=== PATIENT | male | born 1955 | race Caucasian/White ===

== ENCOUNTER 2019-05-21 14:28 | Emergency (ER) | payer MEDICARE, OTHER, SELFPAY ==
[2019-05-21 14:29] VITALS: BP 149/86; PULSE 75; RESP 16; TEMP 36.7; O2SAT 98; BMI 23.3
--- NOTE | 2019-05-21 16:34 | EKG12_ITS ---
Test Reason : NEURO Blood Pressure : / mmHG Vent. Rate : 059 BPM Atrial Rate : 059 BPM P-R Int : 152 ms QRS Dur : 098 ms QT Int : 438 ms P-R-T Axes : 040 -17 032 degrees QTc Int : 433 ms Sinus bradycardia Otherwise normal ECG Confirmed by ZAHRA CASAS ([id number]), primer expeditor and drier DIANA DOVER ([id number]) on 05/22/2019 2:30:51 PM Referred By: MARIANELA Confirmed By:ZAHRA CASAS
--- NOTE | 2019-05-21 16:34 | CT_ITS ---
STUDY: CT BRAIN WITHOUT CONTRAST REASON FOR EXAM: Male, 63 years old. Right facial droop, visual disturbance in right eye RADIATION DOSAGE (If Supplied By Facility): CTDIvol = ( 60.81 ) mGy, DLP = ( 1044.28 ) mGycm TECHNIQUE: Transaxial CT imaging of the brain was performed without administration of intravenous contrast material. Individualized dose optimization techniques were used for this CT. COMPARISON: October 16, 2016 FINDINGS: Normal soft tissue structures. Normal calvarium. Calcification of cavernous carotids. Normal size ventricles and extra-axial spaces for the patient's age. Mild periventricular white matter ischemic changes. Normal basal ganglia and thalami. Normal brainstem. Normal cerebellum. There is no intracranial hemorrhage. There are no findings of an acute ischemic infarction. Postsurgical changes of the orbits Normal visualized paranasal sinuses. No significant change since prior exam CT/Brain/Head without Contrast IMPRESSION: Mild periventricular white matter ischemic changes. No evidence for acute bleed. If concern for acute infarct MRI recommended Electronically Signed: Raul Palomino MD at 17:43 EDT , Service support ,
[2019-05-21 16:37] VITALS: BP 151/84; PULSE 63; RESP 15; O2SAT 97
[2019-05-21 16:39] VITALS: BMI 23.8
--- NOTE | 2019-05-21 16:40 | NURSING ---
NO OLD EKGS
[2019-05-21] MEDS: 0.9% Normal Saline 1,000 ML 150 ML IV (16:58)
[2019-05-21 17:16] LABS: Anion Gap 6 (5-15); BUN 20 mg/dL (7-18); BUN/Creat Ratio 16.7 RATIO (10-20); Calcium,Total 9.1 mg/dL (8.5-10.1); Chloride 100 mmol/L (98-107); EST Glomerular Filtration Rate 65 mL/min (>60); Est Glom Filt Rate - Afr Amer 78 mL/min (>60); Estimated Creatinine Clearance 58.91 ml/min; Glucose 402 mg/dL (74-106); Potassium 4.7 mmol/L (3.5-5.1); Sodium Level 135 mmol/L (136-145)
[2019-05-21 17:20] LABS: Absolute Lymphocyte Count 2.04 X10^3/uL (0.83-4.51); Absolute Neutrophil Count 4.4 X10^3/uL (2.0-7.7); Basophil# 0.03 X10^3/uL; Basophil% 0.4 % (0-1); Eosinophil# 0.23 X10^3/uL; Eosinophils% 3.1 % (0-5); Hematocrit 40.6 % (40-54); Hemoglobin 14.6 g/dL (13.0-16.5); Lymphocyte # 2.04 X10^3/ul (4.0); Lymphocyte % 27.8 % (19-41); Mean Corpuscular Hgb 31.1 pg (27.0-32.0); Mean Corpuscular Volume 86.6 fL (80-94); Mean Platelet Vol. 9.7 fl (6.2-12.0); Monocyte# 0.66 X10^3/uL; NRBC Flagged by Analyzer 0 % (0-5); Neutrophil # 4.35 X10^3/uL (2.7-7.7); Neutrophil % 59.3 % (47-70); Platelet Count 236 K/mm3 (150-450); RBC Distribution Width CV 12.8 % (11.6-14.6); RBC Distribution Width SD 39.8 fl (35.1-43.9); Red Blood Count 4.69 M/mm3 (4.6-6.2); White Blood Count 7.3 K/mm3 (4.4-11.0)
--- NOTE | 2019-05-21 17:52 | ED.DCSUM_ITS ---
- ER Visit Summary Date of Service: 05/21/19 Chief Complaint: [Right facial droop] History of Present Illness: The patient is a 63 M [presents to the emergency department with complaint of right facial droop that started 2 days ago. Patient states he first noticed this when he tried to whistle at a dog and couldn't. Patient states that sometimes words do not come out right. He denies any weakness in extremities. Patient was convinced by his family members to come and get evaluated. Patient tells me he has had prior stroke. Patient also has history of diabetes. Patient tells me he has high blood pressure and high cholesterol but has been noncompliant with those medications. He denies any falls or head injuries. He denies any headache. He denies recent illness.] Physical Examination: [JACQUELINE KNIGHTMI. Cranial nerves II through XII grossly intact. TMs clear. Mucous membranes moist. No adenopathy. Patient is able to raise his right eyebrow. Patient unable to close his right eye upper lid. Patient has right-sided facial droop. Normal sensation to both sides of the face. Cardiovascular-regular rate and rhythm without murmur or ectopy Lungs-clear to auscultation, chest wall stable without crepitus or subcu emphysema Abdomen-normoactive bowel sounds, soft, nontender, no rebound or rigidity, no peritoneal signs. Neuro exam-NIH stroke scale was 3 for the facial droop. No other focal weakness noted. No ataxia. Extremities-intact ?4, normal range of motion, normal pulses, atraumatic] Test Results: [CT scan of the brain without contrast showed some chronic mild periventricular white matter changes. No bleeding or hemorrhage. No masses noted. CBC with it was normal. Chemistries unremarkable. Glucose was elevated 402.] Emergency Department Course and Treatment: [] Treatment Plan: [I recommended admitting patient for further work-up and evaluation of his right facial droop to rule out a central cause such as stroke. It is unclear if this is a Blair's palsy phenomenon versus stroke. Patient is refusing admission. He understands I cannot rule out stroke and felt like he needed further imaging such as an MRI of his brain and MRA of his head and neck to evaluate for vascular occlusions. Patient understands risk of , worsening stroke, permanent disability, and patient refusing admission. Patient has capacity to refuse.] I will write patient for Famvir as well as prednisone and will give referral to neurology. Patient advised to return if worsening symptoms. Disposition: [Signed out AGAINST MEDICAL ADVICE] Impression: [Right facial droop Hyperglycemia] This note was generated with Anaqua dictation software. It may contain incorrect words, spelling, and punctuation that were not noted in review of the chart prior to signing ED Disposition - Plan for ED Patient: [facility] [[facility] Provider] -
--- NOTE | 2019-05-21 17:56 | ED.DEP ---
ED Disposition - Plan for ED Patient: Instructions: Blair's Palsy, CVA, Completed Prescriptions: Prednisone [Deltasone] 20 mg PO BID #10 tab Prescription Printed Famciclovir 500 mg PO TID #21 tab Prescription Printed [facility]errals[facility] [Primary Care Provider] - 3-5 Days Curtis Ramirez MD [STAFF PHYSICIAN] - As soon as possible
[2019-05-21 18:18] VITALS: BP 150/88; PULSE 72; RESP 16; O2SAT 98
[2019-05-21 18:41] VITALS: BP 150/77; PULSE 67; RESP 16; O2SAT 97
== END 2019-05-21 18:42 | disposition home or self-care (01) ==
PROVIDERS: Emergency Provider Emergency Medicine
DX: R29.810 Facial weakness (principal); E11.65 Type 2 diabetes mellitus with hyperglycemia; I10 Essential (primary) hypertension; E78.00 Pure hypercholesterolemia, unspecified; Z91.14 Patient's other noncompliance with medication regimen; Z86.73 Personal history of transient ischemic attack (TIA), and cerebral infarction without residual deficits
CPT/HCPCS: 70450; 80048; 85025; 93005; 96360; 96361; 99283; J7030

== ENCOUNTER 2022-03-22 16:03 | Emergency (ER) | payer OTHER, SELFPAY ==
[2022-03-22 16:04] VITALS: BP 138/98; PULSE 96; RESP 16; TEMP 37.2; O2SAT 100; BMI 19.8
--- NOTE | 2022-03-22 16:19 | EKG12_ITS ---
Test Reason : ABD PAIN Blood Pressure : / mmHG Vent. Rate : 076 BPM Atrial Rate : 076 BPM P-R Int : 132 ms QRS Dur : 088 ms QT Int : 424 ms P-R-T Axes : 042 -22 046 degrees QTc Int : 477 ms Normal sinus rhythm Normal ECG Confirmed by ARUNA MARION, AMIE ([id number]), editorial project manager DIANA DOVER ([id number]) on 03/23/2022 9:03:39 AM Referred By: MARIANELA Confirmed By:AMIE VALDOVINOS MD
--- NOTE | 2022-03-22 16:21 | EDS_ITS ---
HPI HPI - GI History of Present Illness Chief Complaint: Abd Pain Detail of Chief Complaint: Nausea and vomiting x2 days Informant: patient Narrative Narrative: Patient presents emergency department complaint of nausea and vomiting x2 days. Patient states he threw up about 4 5 times yesterday. He states that he cannot eat because he has no appetite and does not like the smell of food. Patient denies any abdominal pain currently but states about once a month he will have an intermittent sharp pain in his abdomen. Patient's had no fevers. Denies diarrhea. Denies blood in the stool or black tarry stool. P atient denies sick contacts. Prior similar symptoms: Yes [facility] Medical History (Updated 03/22/22 @ 18:[address] David Clarke, DO) Diabetes Home Medications naproxen 500 mg PO BID #20 tab 10/16/16 [Rx Last Taken Unknown] famciclovir 500 mg PO TID #21 tab 05/21/19 [Rx Last Taken Unknown] prednisone 20 mg PO BID #10 tab 05/21/19 [Rx Last Taken Unknown] nirmatrelvir-ritonavir [Paxlovid (EUA)] See Rx Instructions .ROUTE .COMPLEX #30 tab 03/22/22 [Rx Last Taken Unknown] ondansetron 4 mg PO Q8H PRN PRN #10 tab 03/22/22 [Rx Last Taken Unknown] Allergy/AdvReac Type Severity Reaction Status Date / Time No Known Allergies Allergy Verified 03/22/22 16:04 Social History Smoking Status: Unknown if ever smoked ROS ROS ED Constitutional Constitutional ED: Reports systems reviewed and no addt'l complaints, except as documented; Denies body ache(s), change in weight or chills Eyes Eyes: Denies acute decrease in peripheral vision, change in vision, double vision or loss of vision ENT ENT ED: Reports none; Denies ear pain, lip swelling, loss taste/smell, neck pain, otalgia or sore throat Cardiovascular Cardiovascular: Reports none; Denies abdominal pain, chest pain with activity, leg edema, lightheadedness, palpitations, rapid heart rate or syncope Respiratory/Chest Respiratory/Chest: Reports none; Denies change in mental status, dry cough, dyspnea, hemoptysis, shortness of breath at rest or shortness of breath with exertion Gastrointestinal Gastrointestinal: Reports none, nausea and vomiting; Denies abdominal pain, change in stool character, diarrhea, hematemesis, hematochezia, melena or rectal bleeding Genitourinary Genitourinary ED: Reports none; Denies abdominal discomfort, anuria, dysuria, genital pain or polyuria Musculoskeletal Musculoskeletal: Reports none; Denies arthralgias, back pain, difficulty walking, extremity pain, muscle weakness or myalgias Integumentary Reports none; Denies abscess or rash Neurologic Neurologic: Reports none; Denies abnormal gait, confusion, focal weakness, frequent falls, headache(s), loss of vision, numbness, paresthesias, radicular pain, vertigo or weakness Psychiatric Psychiatric: Reports systems reviewed and no addt'l complaints, except as documented and none; Denies behavioral changes, confusion, difficulty co ncentrating, hallucinations, suicidal ideation, tactile hallucinations or visual hallucinations Endocrine Endocrinology: Denies none, cold intolerance, excessive sweating, fatigue or heat intolerance Hematologic/Lymphatic Hematologic/Lymphatic: Reports none; Denies anemia, easy bleeding or easy bruising Allergic/Immunologic Allergic/Immunologic ED: Denies as per HPI, none, lip swelling, mouth swelling, throat swelling, tongue swelling or hives EXAM Physical Exam Const Vital Signs: 03/22/22 16:04 Temperature 99 F Temperature Source Temporal Pulse Rate 96 Respiratory Rate 16 Blood Pressure 138/98 H Blood Pressure Mean 111 Pulse Ox 100 Oxygen Delivery Method Room Air Positive well nourished and well developed General Appearance ED: well developed and NAD HEENT Reports TM's clear and moist mucous membranes normocephalic and atraumatic; Negative for trauma or tenderness Tympanic Membrane ED: Yes TM's clear Eyes PERRL and EOMs intact bilaterally General Eye ED: Negative for pale conjunctiva or scleral icterus Neck no lymphadenopathy, supple and no JVD General: Negative for tenderness Chest Wall inspection of chest normal and palpation of chest normal Chest: Negative for tenderness Resp normal respiratory effort and clear to auscultation bilaterally Effort and Inspection: Negative for respiratory distress or pain with movement Auscultation: Negative for rhonchi, wheezes or diminished lung sounds Cardio regular rate, regular rhythm, S1 normal heart sound, S2 normal heart sound and no murmurs Peripheral Pulses: pulses 2+ throughout GI normal to inspection, nondistended, normoactive bowel sounds, soft to palpation, non-tender, non-distended and no masses Back/Spine no CVA tenderness and no thoracic nor lumbar tenderness Extremity normal to inspection General Extremety ED: Negative for edema General Extremity: Negative for edema Neuro oriented x3, CN's II-XII intact bilaterally, no sensory deficits noted and gait normal Sensorium / Orientation: awake, alert, oriented to person, oriented to place and oriented to time Motor Exam: strength 5/5 throughout and strength abnormal Psych mental status grossly normal Skin no rashes or lesions noted and no wounds MDM MDM MDM Narrative Medical decision making narrative: IV line established on arrival. Patient was given normal saline and Zofran. He did feel improved afterwards. Patient was noted to have a positive COVID-19 rapid test. He is currently not taking any medications. I will send him home with a prescription for Zofran as well as Paxlovid. Patient advised to return if increasing shortness of breath, persistent vomiting, or condition should worsen anyway. Lab Data Attestation: I reviewed the patient's lab results. Labs: Laboratory Results - last 24 hr 03/22/22 03/22/22 16:16 16:16 WBC 14.0 H RBC 5.43 Hgb 15.9 Hct 45.6 MCV 84.0 MCH 29.3 MCHC 34.9 RDW Std Deviation 38.1 RDW Coeff of Agus 12.6 Plt Count 342 MPV 9.2 Immature Gran % (Auto) 0.400 Neut % (Auto) 77.6 H Lymph % (Auto) 15.2 L [place] % (Auto) 6.5 Eos % (Auto) 0.1 Baso % (Auto) 0.2 Absolute Neuts (auto) 10.8 H Absolute Lymphs (auto) 2.12 Nucleated RBC % 0 Sodium 133 L Potassium 4.4 Chloride 100 Carbon Dioxide 24.0 Anion Gap 9 BUN 24 H Creatinine 1.32 H Estim Creat Clear Calc 44.69 Est GFR (MDRD) Af Amer 70 Est GFR (MDRD) Non-Af 58 L BUN/Creatinine Ratio 18.2 Glucose 211 H Calcium 9.8 Total Bilirubin 0.70 AST 18 ALT 22 Alkaline Phosphatase 84 Troponin I High Sens 27 Total Protein 8.8 H Albumin 4.2 Globulin 4.6 H Albumin/Globulin Ratio 0.9 Lipase 31 L Radiography Diagnostic Testin view chest x-ray obtained interpreted by myself no acute disease process. Official report from radiology pending. EKG Initial EKG: Attestation: I personally reviewed and interpreted this EKG as follows: Comments: Sinus rhythm with a rate of 76 bpm with no acute ST segment changes Discharge Plan Triage Chief Complaint: Abd Pain ED Provider: David Clarke Dx/Rx/DC Orders Clinical Impression: COVID-19, Vomiting Instructions: ED Diet for Vomiting or ..., Caring for Someone Who Has COVID-19 Prescriptions: New ondansetron [ondansetron] 4 MG tablet 4 mg PO Q8H PRN PRN (Reason: Nausea) Qty: 10 RF: 0 Paxlovid (EUA) 150 mg x 2- 100 mg tablet See Rx Instructions .ROUTE .COMPLEX Qty: 30 RF: 0 No Action naproxen 500 MG tablet 500 mg PO BID Qty: 20 RF: 0 prednisone 20 MG tablet 20 mg PO BID Qty: 10 RF: 0 famciclovir 500 MG tablet 500 mg PO TID Qty: 21 RF: 0 Primary Care Provider: Yves Perdue NP Referrals: Yves Perdue NP, [facility] [Primary Care Provider] - 5-7 Days Disposition Disposition: Home, Self Care
[2022-03-22] MEDS: 0.9% Normal Saline 1,000 ML 125 ML IV (16:29)
[2022-03-22] MEDS: Ondansetron 4 MG/2 ML Vial IV (16:29)
[2022-03-22 16:39] LABS: Absolute Lymphocyte Count 2.12 X10^3/uL (0.83-4.51); Absolute Neutrophil Count 10.8 X10^3/uL (2.0-7.7); Basophil# 0.03 X10^3/uL; Basophil% 0.2 % (0-1); Eosinophil# 0.02 X10^3/uL; Eosinophils% 0.1 % (0-5); Hematocrit 45.6 % (40-54); Hemoglobin 15.9 g/dL (13.0-16.5); Lymphocyte # 2.12 X10^3/ul (0.83-4.51); Lymphocyte % 15.2 % (19-41); Mean Corp Hgb Conc 34.9 g/dL (32-36); Mean Corpuscular Hgb 29.3 pg (27.0-32.0); Mean Platelet Vol. 9.2 fl (6.2-12.0); Monocyte# 0.91 X10^3/uL; Monocyte% 6.5 % (0-10); NRBC Flagged by Analyzer 0 % (0-5); Neutrophil # 10.84 X10^3/uL (2.7-7.7); Neutrophil % 77.6 % (47-70); Platelet Count 342 K/mm3 (150-450); RBC Distribution Width CV 12.6 % (11.6-14.6); RBC Distribution Width SD 38.1 fl (35.1-43.9); Red Blood Count 5.43 M/mm3 (4.6-6.2)
[2022-03-22 16:58] LABS: ALB/GLOB Ratio 0.9 RATIO (0.9-2.4); AST(SGOT) 18 U/L (15-37); Alanine Aminotransfer ALT/SGPT 22 U/L (16-61); Albumin, Serum 4.2 g/dL (3.2-5.0); Alkaline Phosphatase 84 U/L (45-117); Anion Gap 9 (5-15); BUN 24 mg/dL (7-18); BUN/Creat Ratio 18.2 RATIO (10-20); Calcium,Total 9.8 mg/dL (8.5-10.1); Chloride 100 mmol/L (98-107); Creatinine, Serum 1.32 mg/dL (0.70-1.30); EST Glomerular Filtration Rate 58 mL/min (>60); Est Glom Filt Rate - Afr Amer 70 mL/min (>60); Estimated Creatinine Clearance 44.69 ml/min; Globulin 4.6 g/dL (2.2-4.2); Glucose 211 mg/dL (74-106); Lipase 31 U/L (73-393); Potassium 4.4 mmol/L (3.5-5.1); Protein, Total 8.8 g/dL (6.4-8.2); Sodium Level 133 mmol/L (136-145); Troponin-I HS 27 pg/mL (3.0-78.0)
--- NOTE | 2022-03-22 17:50 | RAD_ITS ---
STUDY: X-RAY CHEST REASON FOR EXAM: Male, 66 years old. weakness TECHNIQUE: 1 view COMPARISON: None. FINDINGS: Cardiomediastinal silhouette is unremarkable. Costophrenic angles are sharp. Lungs are clear. The trachea is midline. There is no pneumothorax. Multilevel thoracic spondylosis noted. RAD/Chest 1 View (Portable) IMPRESSION: No acute cardiopulmonary process. Electronically Signed: Dane Rivera MD at 18:09 EDT ,
== END 2022-03-22 18:43 | disposition home or self-care (01) ==
PROVIDERS: Emergency Provider Emergency Medicine; PCP Nurse Practitioner Family; Visit Provider Emergency Medicine
DX: U07.1 COVID-19 (principal); E11.9 Type 2 diabetes mellitus without complications
CPT/HCPCS: 71045; 80053; 83690; 84484; 85025; 87811; 93005; 96361; 96374; 99283; J7030; A4216; J2405

== ENCOUNTER 2022-04-11 14:58 | Emergency (ER) | payer OTHER, SELFPAY ==
[2022-04-11 14:59] VITALS: BP 126/107; PULSE 66; RESP 18; TEMP 36; O2SAT 97; BMI 21.3
--- NOTE | 2022-04-11 15:21 | RAD_ITS ---
STUDY: X-RAY CHEST REASON FOR EXAM: Male, 66 years old. covid TECHNIQUE: Single AP portable view of the chest. COMPARISON: Comparison is made with prior study dated 03/22/2022. FINDINGS: EKG electrodes are seen. There is hyperinflation of the lungs consistent with chronic obstructive lung disease (COPD). There is no demonstrated pleural abnormality. Normal size heart. Normal mediastinum and carissa. Normal visualized pulmonary arteries. Normal visualized aortic arch and descending thoracic aorta. There are diffuse degenerative changes of the visualized thoracic spine. Normal visualized ribs, clavicles, and shoulders. There is no demonstrated abnormality of the visualized soft tissue structures of the upper abdomen. RAD/Chest 1 View (Portable) IMPRESSION: Hyperinflation. The lungs are clear. Electronically Signed: Robert Campos MD at 15:42 EDT ,
--- NOTE | 2022-04-11 15:22 | EX.ED.DYSGE1 ---
HPI History of Present Illness Chief Complaint: Weakness Informant: patient Narrative Narrative: Patient states he had a bad episode of generalized weakness today. He has been having some episodes like this but not as bad for the last couple weeks. He was diagnosed with COVID. He states he is just not eating much of anything. He does drink some fluids. But he states everything smells bad to him. His taste is coming back but things do not taste right. He is not having any nausea vomiting at this time although he did have that early on. He is not having diarrhea now either. He has never had any pain in the abdomen. He has never had chest pain or trouble breathing. He states his breathing is fine and really never did get bad with COVID at all. He had an episode this morning where he got up and was walking around. She just after he got up and started walking he felt lightheaded. He grabbed the kitchen table and then he walked into the living room and laid on the couch. He did not lose consciousness. He just felt very weak and no energy. He asked his brother to call the squad. This was the worst he has felt but has been having episodes like this. He states he knows he lost 5 pounds in the first couple days and he knows he is lost a lot more in the last 2 weeks. He does not know exactly how much though. There is a family history of heart disease but no DVT or PEs. Patient is on no medications at this time other than daily aspirin no recent surgeries. Nothing seems to make his symptoms worse. If he does get a few bites of food he does feel little bit better but not a whole lot. [facility] Medical History Diabetes History of COVID-19 Home Medications aspirin 325 mg tablet 325 mg PO DAILY 04/11/22 [History Last Taken Unknown] Allergy/AdvReac Type Severity Reaction Status Date / Time No Known Allergies Allergy Verified 04/11/22 14:58 Surgical History Hx of thumb surgery Social History Smoking Status: Former smoker ROS ROS ED Constitutional Constitutional ED: Reports weight loss; Denies chills, fever(s) or subjective Eyes Eyes: Denies change in vision ENT ENT ED: Denies rhinorrhea or sore throat Cardiovascular Cardiovascular: Denies chest pain, palpitations, paroxysmal nocturnal dyspnea or racing heartbeat Respiratory/Chest Respiratory/Chest: Denies cough, dyspnea, dyspnea on exertion or paroxysmal nocturnal dyspnea Gastrointestinal Gastrointestinal: Denies abdominal pain, constipation, diarrhea, melena, nausea or vomiting Genitourinary Genitourinary ED: Denies dysuria Musculoskeletal Musculoskeletal: Denies arthralgias or myalgias Integumentary Denies rash Neurologic Neurologic: Reports other Details: He has never had any focal weakness numbness or deficit. ; Denies headache(s), paresthesias or weakness Psychiatric Psychiatric: Denies anxiety or depression Endocrine Endocrinology: Reports other Details: His chart mentions diabetes and past history but when I asked him he denied this. ; Denies polydipsia or polyuria Hematologic/Lymphatic Hematologic/Lymphatic: Denies anemia Allergic/Immunologic Allergic/Immunologic ED: Denies urticaria EXAM Physical Exam Const Vital Signs: 04/11/22 14:59 04/11/22 15:04 Temperature 96.8 F L Temperature Source Temporal Pulse Rate 66 Respiratory Rate 18 Respiratory Pattern Normal Blood Pressure 126/107 H Blood Pressure Mean 113 Pulse Ox 97 Oxygen Delivery Method Room Air Positive well nourished and well developed Constitutional Narrative: Patient does look very thin. He states he is lost a lot of weight in the last few weeks. General Appearance ED: well developed and NAD; Negative for cyanotic or diaphoretic HEENT Reports dry mucous membranes Negative for trauma Mouth ED: Yes dry mucous membranes Mouth: dry mucous membranes Eyes PERRL and EOMs intact bilaterally Neck no JVD Chest Wall inspection of chest normal and palpation of chest normal Chest Narrative: No tenderness Resp normal respiratory effort and clear to auscultation bilaterally Resp Narrative: Normal good deep breaths with no pain or discomfort. Auscultation: Negative for rales, rhonchi or wheezes Cardio regular rate, regular rhythm and no murmurs Rate: Negative for bradycardia or tachycardic GI normal to inspection, nondistended, normoactive bowel sounds, non-tender and non-distended Auscultation: normoactive bowel sounds Back/Spine no CVA tenderness Neuro oriented x3, CN's II-XII intact bilaterally and no sensory deficits noted Neuro Narrative: NIH is 0. Psych mental status grossly normal Skin no rashes or lesions noted and no wounds MDM MDM MDM Narrative Medical decision making narrative: Patient's blood work shows normal white count hemoglobin. Platelets are just slightly high. Electrolytes show no marked abnormalities but his glucose is high at 181. He now does state that he has been told he has burning pain in his feet due to diabetes but he does not take anything for his diabetes. He states he thinks he got weak today because he has not been sleeping. He has not been eating much or drinking much. He states he is able to eat and drink he just as no great appetite. I have encouraged him to do this. He also states he only sleeps a couple hours at a time. He has chronic peripheral neuropathy. One doctor told him it was due to the shoulder and one doctor told him it was due to his back. He was prescribed a medicine for it but he did not want to take it. He is not sure what it was. He has an appointment with his doctor on . I explained he should talk to his doctor about this. This is evidently a different doctor than the one that had prescribed him the unknown medicine before. Patient's troponin is also negative. Patient's vitals are normal. He has sinus rhythm at 70 Snee 5. He is not 100% sat on room air showing no hypoxia his blood pressure is good. I think he is okay to go home. I think his event was likely cause due to poor food, fluids and sleep. Lab Data Labs: Laboratory Results - last 24 hr 04/11/22 04/11/22 04/11/22 15:50 15:50 16:31 WBC 10.2 RBC 4.91 Hgb 14.1 Hct 41.3 MCV 84.1 MCH 28.7 MCHC 34.1 RDW Std Deviation 38.0 RDW Coeff of Agus 12.8 Plt Count 528 H MPV 9.3 Immature Gran % (Auto) 0.500 Neut % (Auto) 53.1 Lymph % (Auto) 37.7 [place] % (Auto) 6.3 Eos % (Auto) 1.8 Baso % (Auto) 0.6 Absolute Neuts (auto) 5.4 Absolute Lymphs (auto) 3.85 Nucleated RBC % 0 Sodium 136 Potassium 4.4 Chloride 103 Carbon Dioxide 23.0 Anion Gap 10 BUN 20 H Creatinine 1.30 Estim Creat Clear Calc 48.86 Est GFR (MDRD) Af Amer 71 Est GFR (MDRD) Non-Af 59 L BUN/Creatinine Ratio 15.4 Glucose 181 H Calcium 9.5 Total Bilirubin 0.40 AST 14 L ALT 16 Alkaline Phosphatase 87 Troponin I High Sens 5 Total Protein 8.6 H Albumin 3.8 Globulin 4.8 H Albumin/Globulin Ratio 0.8 L Urine Color Yellow Urine Clarity Clear Urine pH 7.0 Ur Specific [place] 1.010 Urine Protein 15 H Urine Glucose (UA) Normal Urine Ketones 5 H Urine Occult Blood 150 H Urine Nitrite Negative Urine Bilirubin Negative Urine Urobilinogen Normal Ur Leukocyte Esterase Negative Urine RBC 10-25 SEEN Urine WBC 0-5 SEEN Ur Squamous Epith Cells 0-5 SEEN Urine Bacteria 1+ Urine Mucus 0 SEEN Radiography Diagnostic Testing: Clinical Impression(s) from Imaging Studies Chest X-Ray 04/11/22 15:21 IMPRESSION: Hyperinflation. The lungs are clear. Electronically Signed: Robert Campos MD at 15:42 EDT , Discharge Plan Triage Chief Complaint: Weakness ED Provider: Marlo Ferreira Dx/Rx/DC Orders Clinical Impression: Near syncope, Poor fluid intake Instructions: ED Neuropathy, Peripheral, ED Fainting, Uncertain Cause Prescriptions: No Action aspirin 325 mg Tablet 325 mg PO DAILY Primary Care Provider: Yves Perdue NP Referrals: Yves Perdue STRIKE ON MACHINE OPERATOR, STRI[employer] MACHINE OPERATOR-[facility] [Primary Care Provider] - Keep Nasir appointment (Follow-up on as scheduled.) Disposition Disposition: Home, Self Care
[2022-04-11] MEDS: 0.9% Normal Saline 1,000 ML 1000 ML IV (15:58)
[2022-04-11 16:02] LABS: Absolute Lymphocyte Count 3.85 X10^3/uL (0.83-4.51); Absolute Neutrophil Count 5.4 X10^3/uL (2.0-7.7); Basophil# 0.06 X10^3/uL; Basophil% 0.6 % (0-1); Eosinophil# 0.18 X10^3/uL; Eosinophils% 1.8 % (0-5); Hematocrit 41.3 % (40-54); Hemoglobin 14.1 g/dL (13.0-16.5); Lymphocyte # 3.85 X10^3/ul (0.83-4.51); Lymphocyte % 37.7 % (19-41); Mean Corp Hgb Conc 34.1 g/dL (32-36); Mean Corpuscular Hgb 28.7 pg (27.0-32.0); Mean Corpuscular Volume 84.1 fL (80-94); Mean Platelet Vol. 9.3 fl (6.2-12.0); Monocyte# 0.64 X10^3/uL; Monocyte% 6.3 % (0-10); NRBC Flagged by Analyzer 0 % (0-5); Neutrophil # 5.42 X10^3/uL (2.7-7.7); Neutrophil % 53.1 % (47-70); Platelet Count 528 K/mm3 (150-450); RBC Distribution Width CV 12.8 % (11.6-14.6); Red Blood Count 4.91 M/mm3 (4.6-6.2); White Blood Count 10.2 K/mm3 (4.4-11.0)
[2022-04-11 16:06] LABS: POSITIVE COUNT NO; POSITIVE DIFFERENTIAL NO; POSITIVE MORPHOLOGY NO
[2022-04-11 16:14] LABS: ALB/GLOB Ratio 0.8 RATIO (0.9-2.4); AST(SGOT) 14 U/L (15-37); Alanine Aminotransfer ALT/SGPT 16 U/L (16-61); Albumin, Serum 3.8 g/dL (3.2-5.0); Alkaline Phosphatase 87 U/L (45-117); Anion Gap 10 (5-15); BUN 20 mg/dL (7-18); BUN/Creat Ratio 15.4 RATIO (10-20); Calcium,Total 9.5 mg/dL (8.5-10.1); Chloride 103 mmol/L (98-107); EST Glomerular Filtration Rate 59 mL/min (>60); Est Glom Filt Rate - Afr Amer 71 mL/min (>60); Estimated Creatinine Clearance 48.86 ml/min; Globulin 4.8 g/dL (2.2-4.2); Glucose 181 mg/dL (74-106); Potassium 4.4 mmol/L (3.5-5.1); Protein, Total 8.6 g/dL (6.4-8.2); Sodium Level 136 mmol/L (136-145); Troponin-I HS 5 pg/mL (3.0-78.0)
[2022-04-11 16:35] LABS: Mucous, Urine 0 SEEN /hpf (<or=2+)
[2022-04-11 16:41] LABS: Color, Urine Yellow (Yellow); Glucose, Dipstick Normal (Normal); Ketone-Dipstick 5 mg/dl (Negative); Leukocyte Esterase-Dipstick Negative /ul (Negative); Nitrite-Dipstick Negative (Negative); Occult Blood-Urine 150 /ul (Negative); Protein-Dipstick 15 mg/dl (Negative); Urine Bilirubin Dipstick Negative (Negative); Urine Clarity Clear (Clear); Urine Urobilinogen Normal (Normal)
[2022-04-11 16:50] LABS: Bacteria 1+ /hpf (None Seen); Red Blood Cells-Urine 10-25 SEEN /hpf (0-5); Squamous Epithelial Cells - UA 0-5 SEEN /hpf (0-5); White Blood Cells 0-5 SEEN /hpf (0-5)
[2022-04-11 17:35] VITALS: BP 155/87; PULSE 54; RESP 18; O2SAT 97
== END 2022-04-11 17:37 | disposition home or self-care (01) ==
PROVIDERS: Emergency Provider Emergency Medicine; PCP Nurse Practitioner Family; Visit Provider Emergency Medicine
DX: R55 Syncope and collapse (principal); E11.65 Type 2 diabetes mellitus with hyperglycemia; E11.42 Type 2 diabetes mellitus with diabetic polyneuropathy; R53.1 Weakness; Z87.891 Personal history of nicotine dependence; Z86.16 Personal history of COVID-19; Z79.82 Long term (current) use of aspirin
CPT/HCPCS: 71045; 80053; 81001; 84484; 85025; 96360; 99285; J7030

== ENCOUNTER 2024-09-16 10:46 | Emergency (ER) | payer MEDICARE, SELFPAY ==
[2024-09-16 10:46] VITALS: BP 144/87; PULSE 80; RESP 14; TEMP 36.8; O2SAT 98; BMI 23.3
[2024-09-16 11:10] VITALS: O2SAT 97
--- NOTE | 2024-09-16 11:10 | EKG12_ITS ---
Test Reason : SOB Blood Pressure : */* mmHG Vent. Rate : 70 BPM Atrial Rate : 70 BPM P-R Int : 186 ms QRS Dur : 100 ms QT Int : 454 ms P-R-T Axes : 63 11 140 degrees QTcB Int : 490 ms Normal sinus rhythm Incomplete right bundle branch block Cannot rule out Inferior infarct , age undetermined T wave abnormality, consider lateral ischemia Abnormal ECG Confirmed by Ramon Masters ([id number]), industrial editor DIANA DOVER ([id number]) on 09/18/2024 5:53:12 AM Referred By: Confirmed By: Ramon Masters
--- NOTE | 2024-09-16 11:15 | EX.ED.DYSGE1 ---
HPI History of Present Illness Chief Complaint: Shortness of Breath Narrative Narrative: Patient is a 69-year-old male with past medical history of diabetes, hypertension who presents to the emergency department with a chief complaint of bilateral lower extremity swelling from his feet up to his thighs. Patient states that over the past 2 weeks he has gained approximately 20 pounds and he notes that he was talking to his brother and he felt that he may be retaining water. Patient states that he ordered water pills off [employer] and states that he attempted to take these and they were not working. He states that he has had worsening shortness of breath with this therefore he came here for further evaluation management. [facility] Medical History History of COVID-19 Diabetes Home Medications ?Medication ?Instructions ?Recorded ?Last Taken ?Type aspirin 325 mg tablet 325 mg PO DAILY 04/11/22 09/15/24 History Allergy/AdvReac Type Severity Reaction Status Date / Time No Known Allergies Allergy Verified 09/16/24 10:46 Surgical History Hx of thumb surgery Social History Smoking Status: Former smoker ROS ROS ED ROS Narrative Constitutional: Denies any fevers, chills, headaches, lightness, dizziness Eyes: Denies changes double vision blurry vision Cardiovascular: Denies chest pain or palpitations Respiratory: Complains of shortness of breath as noted above denies wheezing Abdomen: Denies abdominal pain nausea vomit diarrhea : Denies any urinary symptoms Neurological: Denies numbness, weakness, tingling Musculoskeletal: Complains of bilateral lower extremity swelling as noted above denies back pain Skin: Denies rashes or lesions EXAM Physical Exam Narrative Exam Narrative: General: Patient was lying in bed rest comfortably did not appear to be in acute distress Head: Atraumatic, normocephalic Eyes: PERRL bilateral, EOMI bladder, no conjunctival injection noted Neck: Soft, supple, trachea midline Cardiovascular: Regular rate and rhythm no murmurs gallops rubs noted Respiratory: Clear to auscultation bilaterally no rales rhonchi or wheezes noted Abdomen: Soft, nondistended, nontender to palpation Extremities: Patient has 2+ pitting edema in the bilateral lower extremities, +5/5 strength noted in the bilateral upper and lower extremities Neurological: Patient is following commands knew that he was at [facility] years 2023 Skin: Warm, dry, intact Const Vital Signs: 09/16/24 10:46 09/16/24 11:10 Temperature 98.2 F Temperature Source Temporal Pulse Rate 80 Respiratory Rate 14 Blood Pressure 144/87 H Blood Pressure Mean 106 Pulse Ox 98 97 Oxygen Delivery Method Room Air Room Air MDM MDM MDM Narrative Medical decision making narrative: Patient is a 69-year-old male who presented to the emergency department chief complaint of bilateral lower extremity swelling and shortness of breath. On the differential diagnose includes but not limited to CHF, ACS, DVT although feel this less likely as his swelling is symmetric bilaterally and is not unilateral. Once workup is obtained reviewed he will be reevaluated. Patient CBC reviewed and showed no evidence of leukocytosis white blood count normal at 6.1, hemoglobin stable 12, platelet count normal at 194. Patient sodium normal at 142, potassium was 5.6, creatinine was elevated 1.60 his baseline no priors to be around 1.30. Patient's troponin normal at 59. Patient's EKG reviewed and independently interpreted by myself which showed sinus rhythm with a rate of [address] changes noted. Patient's proBNP was elevated at 3063. Patient TSH elevated 8.59 however his free T4 and free T3 were normal at 1.08 and 2.2 respectively. Patient's chest x-ray was reviewed by myself and by radiology does have evidence of CHF on his chest x-ray with evidence of basilar atelectasis. Patient was given 40 mg IV Lasix. At this point time do believe the patient will warrant admission to the hospital for his 20 pound weight gain in 2 weeks and his bilateral lower extremity edema up to his thighs. Patient was notified he is agreeable this plan all question concerns answered bedside. Lab Data Labs: Laboratory Results - last 24 hr 09/16/24 11:22 WBC 6.1 RBC 4.24 L Hgb 12.0 L Hct 38.2 L MCV 90.1 MCH 28.3 MCHC 31.4 L RDW Std Deviation 49.9 H RDW Coeff of Agus 15.4 H Plt Count 194 MPV 9.9 Immature Gran % (Auto) 0.500 Neut % (Auto) 62.6 Lymph % (Auto) 25.0 [place] % (Auto) 7.6 Eos % (Auto) 3.5 Baso % (Auto) 0.8 Absolute Neuts (auto) 3.8 Absolute Lymphs (auto) 1.51 Nucleated RBC % 0 Sodium 142 Potassium 5.6 H Chloride 113 H Carbon Dioxide 26.0 Anion Gap 2 L BUN 30 H Creatinine 1.60 H Estim Creat Clear Calc 40.74 Est GFR (MDRD) Af Amer 55 L Est GFR (MDRD) Non-Af 46 L BUN/Creatinine Ratio 18.8 Glucose 114 H Calcium 8.5 Troponin I High Sens 59 B-Natriuretic Peptide 3063.3 H TSH 8.590 H Free T4 1.08 Free T3 pg/dL 2.2 Radiography Diagnostic Testing: Clinical Impression(s) from Imaging Studies Chest X-Ray 09/16/24 11:43 IMPRESSION: Poor inspiration with some bibasilar atelectasis Electronically Signed: Yves Machuca MD at 12:07 EST , Discharge Plan Triage Chief Complaint: Shortness of Breath ED Provider: Elvis Stevens Dx/Rx/DC Orders Clinical Impression: CHF (congestive heart failure), Dyspnea on exertion Prescriptions: No Action aspirin 325 mg Tablet 325 mg PO DAILY Primary Care Provider: Care Physician,No Primary Referrals: Yves Perdue WAGON DRIVER, WAGON DRIVER-C [Non-Staff] - Print Language: Tamazight Disposition Disposition: Acute Care [facility]
[2024-09-16 11:27] LABS: Absolute Lymphocyte Count 1.51 X10^3/uL (0.83-4.51); Absolute Neutrophil Count 3.8 X10^3/uL (2.0-7.7); Basophil# 0.05 X10^3/uL; Basophil% 0.8 % (0-1); Eosinophil# 0.21 X10^3/uL; Eosinophils% 3.5 % (0-5); Hematocrit 38.2 % (40-54); Lymphocyte # 1.51 X10^3/ul (0.83-4.51); Mean Corp Hgb Conc 31.4 g/dL (32-36); Mean Corpuscular Hgb 28.3 pg (27.0-32.0); Mean Corpuscular Volume 90.1 fL (80-94); Mean Platelet Vol. 9.9 fl (6.2-12.0); Monocyte# 0.46 X10^3/uL; Monocyte% 7.6 % (0-10); NRBC Flagged by Analyzer 0 % (0-5); Neutrophil # 3.79 X10^3/uL (2.7-7.7); Neutrophil % 62.6 % (47-70); Platelet Count 194 K/mm3 (150-450); RBC Distribution Width CV 15.4 % (11.6-14.6); RBC Distribution Width SD 49.9 fl (35.1-43.9); Red Blood Count 4.24 M/mm3 (4.6-6.2); White Blood Count 6.1 K/mm3 (4.4-11.0)
--- NOTE | 2024-09-16 11:43 | RAD_ITS ---
STUDY: X-RAY CHEST REASON FOR EXAM: Male, 69 years old. sob TECHNIQUE: PA and lateral views of the chest. COMPARISON: 04/11/2022 FINDINGS: Poor inspiration with some bibasilar atelectasis. There is no demonstrated pleural abnormality. Normal size heart. Normal mediastinum and carissa. Normal visualized pulmonary arteries. Normal visualized aortic arch and descending thoracic aorta. Normal visualized thoracic spine. Normal visualized ribs, clavicles, and shoulders. There is no demonstrated abnormality of the visualized soft tissue structures of the upper abdomen. RAD/Chest PA and Lateral IMPRESSION: Poor inspiration with some bibasilar atelectasis Electronically Signed: Yves Machuca MD at 12:07 EST ,
[2024-09-16 11:51] LABS: Anion Gap 2 (5-15); BUN 30 mg/dL (7-18); BUN/Creat Ratio 18.8 RATIO (10-20); Calcium,Total 8.5 mg/dL (8.5-10.1); Chloride 113 mmol/L (98-107); EST Glomerular Filtration Rate 46 mL/min (>60); Est Glom Filt Rate - Afr Amer 55 mL/min (>60); Estimated Creatinine Clearance 40.74 ml/min; Glucose 114 mg/dL (74-106); Potassium 5.6 mmol/L (3.5-5.1); Sodium Level 142 mmol/L (136-145); Troponin-I HS 59 pg/mL (3.0-78.0)
[2024-09-16 12:36] LABS: Free T3 2.2 pg/mL (2.18-3.98); T4 Free Direct 1.08 ng/dL (0.76-1.46)
[2024-09-16 12:55] LABS: BNP,B-Type NATRIURETIC PEPTIDE 3063.3 pg/mL (0-100)
[2024-09-16] MEDS: Furosemide 40 MG/4 ML Vial IV (13:30)
[2024-09-16 13:32] VITALS: BP 154/93; PULSE 67; PULSE 75; RESP 18; TEMP 36.7; O2SAT 98; O2SAT 99
[2024-09-16 15:00] VITALS: RESP 18
== END 2024-09-16 15:09 | disposition left against medical advice (07) ==
PROVIDERS: Emergency Provider Emergency Medicine; Visit Provider Emergency Medicine
DX: I50.9 Heart failure, unspecified (principal); I11.0 Hypertensive heart disease with heart failure; E11.9 Type 2 diabetes mellitus without complications; Z87.891 Personal history of nicotine dependence; J98.11 Atelectasis; Z53.29 Procedure and treatment not carried out because of patient's decision for other reasons; Z79.82 Long term (current) use of aspirin; R06.09 Other forms of dyspnea
CPT/HCPCS: 96374; 99283; 71046; 80048; 83880; 84439; 84443; 84481; 84484; 85025; 93005; A4216; J1940

== ENCOUNTER 2024-09-17 16:50 | Inpatient (IN) | payer MEDICARE, SELFPAY ==
[2024-09-17 16:53] VITALS: BP 155/88; PULSE 79; RESP 18; TEMP 36.2; O2SAT 98; BMI 23.4
--- NOTE | 2024-09-17 18:00 | EKG12_ITS ---
Test Reason : WEAKNESS Blood Pressure : */* mmHG Vent. Rate : 71 BPM Atrial Rate : 71 BPM P-R Int : 148 ms QRS Dur : 98 ms QT Int : 450 ms P-R-T Axes : 83 125 3 degrees QTcB Int : 489 ms Normal sinus rhythm Right axis deviation Incomplete right bundle branch block Cannot rule out Anterior infarct , age undetermined Abnormal ECG Confirmed by Ramon Masters ([id number]), online editor MARK RAMSEY ([id number]) on 09/19/2024 11:02:01 AM Referred By: Confirmed By: Ramon Masters
--- NOTE | 2024-09-17 18:08 | EDS_ITS ---
HPI History of Present Illness Chief Complaint: Edema Narrative Narrative: Patient is a 69-year-old male with past medical history of diabetes who presents to the emergency department with a chief complaint of shortness of breath and bilateral lower extremity swelling. Patient was evaluated here yesterday in the emergency department and at that point time was not willing to stay in the emergency department was ultimately sent home. He states that he did take the medication that he was prescribed yesterday however states that he is still not pain all that much and states that he feels the swelling is still not improved therefore he came back to the hospital for admission. [facility] Medical History History of COVID-19 Diabetes Home Medications ?Medication ?Instructions ?Recorded ?Last Taken ?Type furosemide 40 mg tablet 40 mg PO DAILY 7 days #7 tabs 09/16/24 09/17/24 Rx aspirin 81 mg tablet,delayed 81 mg PO DAILY 09/17/24 09/17/24 History release Allergy/AdvReac Type Severity Reaction Status Date / Time No Known Allergies Allergy Verified 09/17/24 16:53 Surgical History Hx of thumb surgery Social History Smoking Status: Former smoker ROS ROS ED ROS Narrative Constitutional: Denies any fevers, chills, headaches, lightness, dizziness Cardiovascular: Denies chest pain or palpitations Respiratory: Complains of shortness of breath as noted above denies any wheezing Abdomen: Denies nausea vomit diarrhea : Denies any urinary symptoms Neurological: Denies any numbness, wheeze, tingling Musculoskeletal: Complains of bilateral lower extremity swelling as noted above denies back pain Skin: Denies rashes or lesions EXAM Physical Exam Narrative Exam Narrative: General: Patient lying in bed rest comfortably did not appear to be in acute distress Head: Atraumatic, normocephalic Eyes: PERRL body, EOMI blood, no conjunctival injection noted Neck: Soft, supple, trachea midline Cardiovascular: Regular rate and rhythm no murmurs gallops rubs noted Respiratory: Clear to auscultation bilaterally Abdomen: Soft, nondistended, nontender to palpation] Extremities: Patient has 2+ pitting edema to the bilateral extremities, radial pulses +2/4 in the bilateral upper extremities Neurological: Patient following commands knew that he was at [facility] years 2023 Skin: Warm, dry, intact Const Vital Signs: 09/17/24 16:53 09/17/24 18:19 09/17/24 18:20 Temperature 97.2 F L Temperature Source Temporal Pulse Rate 79 Respiratory Rate 18 Respiratory Effort Normal Non-Labored Respiratory Pattern Normal Blood Pressure 155/88 H Blood Pressure Mean 110 Pulse Ox 98 Oxygen Delivery Method Room Air Room Air 09/17/24 19:00 Temperature Temperature Source Pulse Rate 68 Respiratory Rate 16 Respiratory Effort Respiratory Pattern Blood Pressure 157/87 H Blood Pressure Mean 110 Pulse Ox 98 Oxygen Delivery Method Room Air MDM MDM MDM Narrative Medical decision making narrative: Patient is a 69-year-old male who presents to the Emergency Department chief complaint of bilateral lower extremity swelling and dyspnea on exertion. Patient will have repeat blood work as he was just evaluated here yesterday. On the differential diagnose includes but not limited to CHF exacerbation, pursed per infectious extra viral etiology. Patient will have bladder scan performed as well. Once this is obtained reviewed he will be reevaluated. Patient CBC reviewed and showed no evidence leukocytosis white blood count normal at 6.2, hemoglobin 12.3, platelet count normal at 183. Patient sodium normal at 144, potassium was 5.7, creatinine 1-1.76 from yesterday was 1.60. Patient's blood work from yesterday was reviewed and his once again his proBNP elevated 3063. Patient yesterday was given IV Lasix and once again is noted to have a 20 pound weight gain in 2 weeks with increased bilateral lower extremity edema up to his thighs bilaterally. Patient is agreeable to admission today. Will discuss the case with hospitalist for admission given his worsening renal function and his bilateral lower extremity edema for CHF workup. Patient case discussed with hospitalist Dr. Davila who accept the patient for admission. Patient will given a dose of Bumex given his worsening renal function as opposed to Lasix. Patient was notified is agreeable this plan all question concerns answered bedside. Lab Data Labs: Laboratory Results - last 24 hr 09/17/24 18:20 WBC 6.2 RBC 4.38 L Hgb 12.3 L Hct 39.5 L MCV 90.2 MCH 28.1 MCHC 31.1 L RDW Std Deviation 50.2 H RDW Coeff of Agus 15.4 H Plt Count 183 MPV 9.7 Immature Gran % (Auto) 0.500 Neut % (Auto) 60.7 Lymph % (Auto) 25.4 [place] % (Auto) 9.3 Eos % (Auto) 3.1 Baso % (Auto) 1.0 Absolute Neuts (auto) 3.8 Absolute Lymphs (auto) 1.58 Nucleated RBC % 0 Sodium 144 Potassium 5.7 H Chloride 113 H Carbon Dioxide 29.0 Anion Gap 2 L BUN 34 H Creatinine 1.76 H Estim Creat Clear Calc 37.04 Est GFR (MDRD) Af Amer 50 L Est GFR (MDRD) Non-Af 41 L BUN/Creatinine Ratio 19.3 Glucose 90 Calcium 8.9 Discharge Plan Triage Chief Complaint: Edema ED Provider: Elvis Stevens Dx/Rx/DC Orders Clinical Impression: Dyspnea on exertion Prescriptions: No Action furosemide 40 mg tablet 40 mg PO DAILY 7 Days Qty: 7 0RF Patient Comments: STARTED YESTERDAY- 09/16/24 aspirin 81 mg tablet,delayed release (DR/EC) 81 mg PO DAILY Primary Care Provider: Care Physician,No Primary Referrals: Care Physician,No Primary [Primary Care Provider] - Print Language: Swedish Disposition Disposition: Acute Care Hospital [facility]
[2024-09-17 18:27] LABS: Absolute Lymphocyte Count 1.58 X10^3/uL (0.83-4.51); Absolute Neutrophil Count 3.8 X10^3/uL (2.0-7.7); Basophil# 0.06 X10^3/uL; Eosinophil# 0.19 X10^3/uL; Eosinophils% 3.1 % (0-5); Hematocrit 39.5 % (40-54); Hemoglobin 12.3 g/dL (13.0-16.5); Lymphocyte # 1.58 X10^3/ul (0.83-4.51); Lymphocyte % 25.4 % (19-41); Mean Corp Hgb Conc 31.1 g/dL (32-36); Mean Corpuscular Hgb 28.1 pg (27.0-32.0); Mean Corpuscular Volume 90.2 fL (80-94); Mean Platelet Vol. 9.7 fl (6.2-12.0); Monocyte# 0.58 X10^3/uL; Monocyte% 9.3 % (0-10); NRBC Flagged by Analyzer 0 % (0-5); Neutrophil # 3.78 X10^3/uL (2.7-7.7); Neutrophil % 60.7 % (47-70); Platelet Count 183 K/mm3 (150-450); RBC Distribution Width CV 15.4 % (11.6-14.6); RBC Distribution Width SD 50.2 fl (35.1-43.9); Red Blood Count 4.38 M/mm3 (4.6-6.2); White Blood Count 6.2 K/mm3 (4.4-11.0)
[2024-09-17 18:49] LABS: Anion Gap 2 (5-15); BUN 34 mg/dL (7-18); BUN/Creat Ratio 19.3 RATIO (10-20); Calcium,Total 8.9 mg/dL (8.5-10.1); Chloride 113 mmol/L (98-107); Creatinine, Serum 1.76 mg/dL (0.70-1.30); EST Glomerular Filtration Rate 41 mL/min (>60); Est Glom Filt Rate - Afr Amer 50 mL/min (>60); Estimated Creatinine Clearance 37.04 ml/min; Glucose 90 mg/dL (74-106); Potassium 5.7 mmol/L (3.5-5.1); Sodium Level 144 mmol/L (136-145)
[2024-09-17 19:00] VITALS: BP 157/87; PULSE 68; RESP 16; O2SAT 98
--- NOTE | 2024-09-17 19:27 | PCM.HP.STD ---
[facility] - General General Date of Admission: 09/17/24 Date of Service: 09/17/24 Chief Complaint: SOB and Bilateral LE Edema. HPI Narrative ZOE MENDEZ, is a 69 M with a past medical history of essential hypertension; on furosemide, history of CHF, history of DM-2; currently not on treatment, former tobacco abuse, history of COVID-19 (2021), history of thumb surgery and osteoarthritis who presents to [facility] ER complaining of shortness of breath and bilateral lower extremity edema. Mr. Mendez reports his symptoms began approximately 2 weeks prior to admission with a gradual-onset of lower extremity edema and unintentional 20 pound weight gain with patient suspecting that he was retaining water. Patient then ordered diuretics off of [employer] which were not effective in controlling his symptoms so he decided to come to the ER here yesterday and was discovered to have an elevated BNP of 3,063.3 pg/mL present on admission consistent with AE of chronic CHF complicated by Hyperkalemia of 5.6 mmol/L present on admission and a mildly elevated serum creatinine of 1.6 mg/dL present on admission and incidentally noted elevated TSH of 8.59 with a normal free T4 of 1.08 And normal free T3 of 2.2. He was strongly recommended for admission but patient refused and then he was treated with IV furosemide with a prescription for oral furosemide. He states that his condition continued to worsen with worsening lower extremity edema and dyspnea on exertion that has now progressed to shortness of breath at rest so he decided to come back to the hospital for further evaluation and treatment. In the ER he was noted to have a highly elevated BNP of 4,191.2 pg/mL present on admission consistent with AE of CHF of unspecified-type with CT this admission revealing Large Bilateral Pleural Effusions with possible underlying Pneumonia and cardiomegaly with trace pericardial effusion and [id number] volume ascites of uncertain etiology along with an incidentally noted absent Left kidney He was then admitted to the PCU for ongoing care for stay that is expected to extend beyond 2 midnights. [facility] Medical History History of COVID-19 Diabetes Home Medications ?Medication ?Instructions ?Recorded ?Last Taken ?Type furosemide 40 mg tablet 40 mg PO DAILY 7 days #7 tabs 09/16/24 09/17/24 Rx aspirin 81 mg tablet,delayed 81 mg PO DAILY 09/17/24 09/17/24 History release Allergy/AdvReac Type Severity Reaction Status Date / Time No Known Allergies Allergy Verified 09/17/24 16:53 Surgical History Hx of thumb surgery Social History Smoking Status: Former smoker ROS ROS Narrative Review of Systems: Constitutional: Patient denies fever or chills. Eyes: Patient denies changes in vision or discharge from eyes. ENT: Patient denies runny nose, sore throat or ear pain. Resp: Patient complains of shortness of breath with minimal exertion. CV: Patient denies chest pain, palpitations or heart racing. GI: Patient denies nausea, vomiting, diarrhea or constipation. : Patient admits to decreased urinary output but he denies dysuria or hematuria. MSK: Patient complains of ~2+ bilateral lower extremity swelling as per HPI. He denies back pain. Skin: Patient denies rash, abscess or jaundice. Psych: Patient denies symptoms of uncontrolled depression or anxiety. Neuro: Patient denies headache, paresthesias or focal neurologic deficits. Allergy: Patient denies lip swelling, tongue swelling or urticaria. Hematology: Patient denies easy bleeding or easy bruisability. Endocrinology: Patient denies polyuria, polydipsia or polyphagia. 14 point review of systems otherwise negative except for positives noted above in HPI. Vital Signs Vital Signs Vital Signs: 09/17/24 16:53 09/17/24 18:19 09/17/24 18:20 Temperature 97.2 F L Temperature Source Temporal Pulse Rate 79 Respiratory Rate 18 Respiratory Effort Normal Non-Labored Respiratory Pattern Normal Blood Pressure 155/88 H Blood Pressure Mean 110 Pulse Ox 98 Oxygen Delivery Method Room Air Room Air 09/17/24 19:00 Temperature Temperature Source Pulse Rate 68 Respiratory Rate 16 Respiratory Effort Respiratory Pattern Blood Pressure 157/87 H Blood Pressure Mean 110 Pulse Ox 98 Oxygen Delivery Method Room Air Weight Weight: 149 lb 11.2 oz Body Mass Index (BMI) 23.4 Physical Exam Const alert, oriented x3, no apparent distress and average body habitus Constitutional Narrative: Patient has a chronically ill appearance. General Appearance: cooperative HEENT normocephalic, head/scalp atraumatic, hearing grossly normal bilaterally and moist oral mucous membranes Eyes PERRL and EOMs intact bilaterally Neck no lymphadenopathy and supple Resp Resp Narrative: Diminished breath sounds throughout. Cardio regular rate and regular rhythm GI normal to inspection, nondistended, normoactive bowel sounds, soft to palpation, non-tender and non-distended Extremity Extremity Narrative: Symmetrical 2+ bilateral lower extremity pitting edema with no signs of vascular compromise. Skin Skin Narrative: Patient has evidence of rash, abscess or jaundice. Neuro oriented x3, CN's II-XII intact bilaterally, moves all extremities and no focal motor deficits Sensorium / Orientation: awake, alert, oriented to person, oriented to place and oriented to time Psych affect normal Results Medical Records Data Attestation: I reviewed the patient's medical records Lab / Micro Data Attestation: I reviewed the patient's lab results. 09/17/24 18:20 09/17/24 18:20 Labs: Laboratory Results - last 24 hr 09/17/24 18:20: WBC 6.2, RBC 4.38 L, Hgb 12.3 L, Hct 39.5 L, MCV 90.2, MCH 28.1, MCHC 31.1 L, RDW Std Deviation 50.2 H, RDW Coeff of Agus 15.4 H, Plt Count 183, MPV 9.7, Immature Gran % (Auto) 0.500, Neut % (Auto) 60.7, Lymph % (Auto) 25.4, [place] % (Auto) 9.3, Eos % (Auto) 3.1, Baso % (Auto) 1.0, Absolute Neuts (auto) 3.8, Absolute Lymphs (auto) 1.58, Nucleated RBC % 0, Sodium 144, Potassium 5.7 H, Chloride 113 H, Carbon Dioxide 29.0, Anion Gap 2 L, BUN 34 H, Creatinine 1.76 H, Estim Creat Clear Calc 37.04, Est GFR (MDRD) Af Amer 50 L, Est GFR (MDRD) Non-Af 41 L, BUN/Creatinine Ratio 19.3, Glucose 90, Calcium 8.9 Imaging [facility] Imaging Services [address] [place] [address] Abdomen/Pelvis without Cont MR#: [id number] Acct: [id number] Name: ZOE MENDEZ Rep #: [id number] : 1955 M 69 From: Byron Garnett DO PCP: Care Physician,No Primary Status: ADM IN Study: Abdomen/Pelvis without Cont Date of Exam: 09/17/24 Exam# [id number] Ordering Dr: Juice Raya DO EXAM: CT ABDOMEN AND PELVIS WITHOUT INTRAVENOUS CONTRAST CLINICAL INDICATION: Elevated serum creatinine with urinary retention. -- Evaluate for prostate mass. TECHNIQUE: Helically acquired images were obtained of the abdomen and pelvis without intravenous contrast. This CT exam was performed using one or more of the following dose reduction techniques: automated exposure control, adjustment of the mA and/or kV according to patient size, and/or use of iterative reconstruction technique. COMPARISON: No relevant prior studies available. FINDINGS: LOWER THORAX: Large bilateral pleural effusions with associated lower lobe predominant airspace disease which may be atelectasis or perhaps pneumonia. Cardiomegaly with trace pericardial effusion. Coronary artery calcifications. ABDOMEN: LIVER: No significant abnormality. Homogeneous. GALLBLADDER AND BILE DUCTS: No significant abnormality. No calcified gallstones. No gallbladder distention or wall edema. No intra- or extrahepatic biliary ductal dilation. PANCREAS: No significant abnormality. No focal cystic mass. SPLEEN: No significant abnormality. Normal size without focal cystic or solid mass. ADRENALS: No significant abnormality. No nodules. KIDNEYS AND URETERS: The left kidney is absent. The right kidney appears normal. Normal renal size and position. No hydronephrosis. STOMACH AND BOWEL: Moderate colonic stool and gas retention. No stomach or bowel distention. No focal inflammatory change. PELVIS: APPENDIX: No evidence of acute appendicitis. BLADDER: Mild nonspecific urinary bladder distention. REPRODUCTIVE: Normal as visualized. No significant prostate enlargement. ABDOMEN and PELVIS: INTRAPERITONEAL SPACE: Small to medium volume ascites of uncertain etiology. No free air. BONES/JOINTS: Degenerative changes in the axial and appendicular skeletal structures. Bilateral L5 spondylolysis with grade 1 anterolisthesis of L5 upon S1. No suspicious lytic or blastic abnormality. SOFT TISSUES: Body wall edema/anasarca. No discrete abdominal or pelvic wall hernia. VASCULATURE: Atherosclerosis of the aorta and its branch vessels. LYMPH NODES: No significant abnormality. No enlarged lymph nodes. CT/Abdomen/Pelvis without Cont IMPRESSION: 1. No significant prostate enlargement. Mild urinary bladder distention. 2. Small to medium volume ascites of uncertain etiology. 3. Body wall edema/anasarca. 4. Large bilateral pleural effusions with associated lower lobe predominant airspace disease which may be atelectasis or perhaps pneumonia. 5. Cardiomegaly with trace pericardial effusion. 6. The left kidney is absent. Correlate for nephrectomy. 7. Bilateral L5 spondylolysis with grade 1 anterolisthesis of L5 upon S1. Degenerative changes. 8. Moderate colonic stool and gas retention. No evidence of bowel obstruction. Electronically Signed: Byron Garnett, at 21:25 EST , Assessment & Plan Assessment/Plan (1) CHF (congestive heart failure): QUALIFIERS: Heart failure chronicity: acute on chronic Heart failure type: unspecified Qualified Code(s): I50.9 - Heart failure, unspecified (2) Dyspnea on exertion: (3) Hyperkalemia: (4) JAMES (acute kidney injury): (5) Medical non-compliance: PLAN: Plan 1. AE CHF; of unspecified-type evidenced by elevated BNP of 4,192.2 pg/mL present on admission with bilateral LE edema - Admit to PCU. Maintain IV bumetanide begun in the ER and start metoprolol 25 mg PO BID. Check echocardiogram to evaluate LVEF. 2. Hyperkalemia of 5.7 mmol/L with JAMES; with elevated serum creatinine of 1.76 mg/dL (up from 1.6 mg/dL yesterday) likely due to urinary retention with solitary Right kidney noted on CT complicating #1 - Patient treated with bumetanide IV in the ER plus we will give IV insulin / D10 and oral Kayexalate with repeat BMP pending in AM to follow response to treatment. Check PSA. Checked CT of abdomen and pelvis to evaluate for possible mass or urinary obstruction with results noted above. 3. Medical Noncompliance with patient refusing admission from ER yesterday compounding #1 & #2 - Noted. Patient encouraged to follow sound medical advice when given in the future to avoid serial readmission. 4. Subclinical Hypothyroidism with elevated TSH of 8.59 but with normal FT4 of 1.08 and normal FT3 of 2.2 on recent admission adding to the medical complexity of #1 - #3 - Noted. Thyroid studies should be rechecked in 4-6 weeks. 5. Essential hypertension; on furosemide - Resume furosemide IV plus add metoprolol tartrate 25 mg p.o. twice daily. 6. History of DM-2; currently not on treatment - Check HgbA1c to confirm status. 7. Former tobacco abuse - Noted. 8. History of COVID-19 (2021) - Noted. 9. History of thumb surgery - Noted. 10. Osteoarthritis - Give Tylenol prn. 11. DVT prophylaxis - Lovenox 30 mg sq TID plus SCD's. Total time: Approximately (but not less than) 75 minutes. Charges/Coding Visit Charges Inpatient E&M: 34136 Init Hosp L3
[2024-09-17] MEDS: Bumetanide 1 MG/4 ML Vial 0.5 MG IV (19:51)
[2024-09-17 19:52] VITALS: BP 159/91; PULSE 70; RESP 22; TEMP 37; O2SAT 99
--- NOTE | 2024-09-17 19:58 | ECHOD_ITS ---
Reason For Study: CONGESTIVE HEART FAILURE Procedure This was a 2D Doppler, Color Flow transthoracic echocardiogram. Exam performed portable in patient room. Left Ventricle Mildly dilated left ventricle. The estimated ejection fraction is 35 %. Stage 2 diastolic dysfunction. There is severe global hypokinesis of the left ventricle. Right Ventricle Mildly dilated right ventricle. Normal systolic function. Atria There is moderate biatrial dilatation. Bubble contrast study is positive for PFO. Mitral Valve There is no mitral valve stenosis. Moderate (2+) mitral valve insufficiency. Tricuspid Valve There is no tricuspid stenosis. Moderate (2+) tricuspid valve insufficiency. Pulmonary artery systolic pressure is 45-50 mmHg. Aortic Valve Trisinus/trileaflet aortic valve. There is no aortic stenosis. No aortic valve insufficiency. Pulmonic Valve There is no pulmonic valvular stenosis. Trivial pulmonic valve insufficiency. Great Vessels Normal aortic root. Pericardium/Pleural No pericardial effusion. Medication Performed a rapid injection of agitated mix of 9 cc saline and 1cc air to assess for atrial septal defect. MMode/2D Measurements & Calculations LVIDd: 5.2 cm IVSd: 1.3 cm LVOT diam: 2.0 cm LVIDs: 4.6 cm LVPWd: 1.1 cm RVDd: 4.6 cm FS: 10.5 % LVOT area: 3.0 cm2 asc Aorta Diam: 3.1 cm LAV(MOD-bp): 84.0 ml LVAd ap4: 31.5 cm2 LAV(MOD-bp) Indexed: 47.1 ml/m2 LVLd ap4: 8.3 cm LAV(MOD-sp2): 73.4 ml EDV(MOD-sp4): 99.4 ml LAV(MOD-sp4): 84.7 ml EDV(sp4-el): 101.3 ml LVAs ap4: 23.8 cm2 LVLs ap4: 7.3 cm ESV(MOD-sp4): 63.6 ml ESV(sp4-el): 66.2 ml EF(MOD-sp4): 36.0 % EF(sp4-el): 34.7 % LVAd ap2: 37.3 cm2 SV(MOD-sp4): 35.8 ml SV(MOD-sp2): 44.5 ml LVLd ap2: 8.6 cm SI(MOD-sp4): 20.1 ml/m2 SI(MOD-sp2): 24.9 ml/m2 EDV(MOD-sp2): 131.1 ml EDV(sp2-el): 137.5 ml LVAs ap2: 28.0 cm2 LVLs ap2: 7.3 cm ESV(MOD-sp2): 86.6 ml ESV(sp2-el): 91.4 ml EF(MOD-sp2): 34.0 % SV(sp4-el): 35.1 ml Ao sinus diam: 2.[address] Junction: 2.4 cm LA dimension(2D): 4.7 cm LA A4 area: 25.4 cm2 RA A4 area: 24.7 cm2 TAPSE: 1.7 cm Time Measurements MV dec time: 0.18 sec Doppler Measurements & Calculations MV E max joao: 67.4 cm/sec Lat Peak E' Joao: 5.5 cm/sec Med Peak E' Joao: 5.2 cm/sec MV A max joao: 53.7 cm/sec E/E' lat: 12.2 E/E' med: 12.9 MV E/A: 1.3 MV dec slope: 370.8 cm/sec2 Ao V2 max: 100.0 cm/sec LV V1 max: 67.7 cm/sec Ao max P.0 mmHg LV V1 max P.8 mmHg Ao V2 mean: 72.1 cm/sec LV V1 mean P.89 mmHg Ao mean P.3 mmHg LV V1 mean: 43.4 cm/sec Ao V2 VTI: 24.7 cm LV V1 VTI: 16.5 cm AV (velocity ratio): 0.67 DALILA(I,D): 2.0 cm2 DALILA(V,D): 2.0 cm2 SV(LVOT): 49.7 ml PA V2 max: 67.6 cm/sec PI end-d joao: 82.5 cm/sec TR max joao: 308.1 cm/sec TR max P.0 mmHg ECHO/Echo Complete Interpretation Summary The estimated ejection fraction is 35 %. Stage 2 diastolic dysfunction. There is severe global hypokinesis of the left ventricle. Mildly dilated right ventricle. There is moderate biatrial dilatation. Bubble contrast study is positive for PFO. Moderate (2+) mitral valve insufficiency. Ordering Physician: Juice Raya Performed By: Vicky Ferrera RDCS
--- NOTE | 2024-09-17 19:58 | CT_ITS ---
EXAM: CT ABDOMEN AND PELVIS WITHOUT INTRAVENOUS CONTRAST CLINICAL INDICATION: Elevated serum creatinine with urinary retention. -- Evaluate for prostate mass. TECHNIQUE: Helically acquired images were obtained of the abdomen and pelvis without intravenous contrast. This CT exam was performed using one or more of the following dose reduction techniques: automated exposure control, adjustment of the mA and/or kV according to patient size, and/or use of iterative reconstruction technique. COMPARISON: No relevant prior studies available. FINDINGS: LOWER THORAX: Large bilateral pleural effusions with associated lower lobe predominant airspace disease which may be atelectasis or perhaps pneumonia. Cardiomegaly with trace pericardial effusion. Coronary artery calcifications. ABDOMEN: LIVER: No significant abnormality. Homogeneous. GALLBLADDER AND BILE DUCTS: No significant abnormality. No calcified gallstones. No gallbladder distention or wall edema. No intra- or extrahepatic biliary ductal dilation. PANCREAS: No significant abnormality. No focal cystic mass. SPLEEN: No significant abnormality. Normal size without focal cystic or solid mass. ADRENALS: No significant abnormality. No nodules. KIDNEYS AND URETERS: The left kidney is absent. The right kidney appears normal. Normal renal size and position. No hydronephrosis. STOMACH AND BOWEL: Moderate colonic stool and gas retention. No stomach or bowel distention. No focal inflammatory change. PELVIS: APPENDIX: No evidence of acute appendicitis. BLADDER: Mild nonspecific urinary bladder distention. REPRODUCTIVE: Normal as visualized. No significant prostate enlargement. ABDOMEN and PELVIS: INTRAPERITONEAL SPACE: Small to medium volume ascites of uncertain etiology. No free air. BONES/JOINTS: Degenerative changes in the axial and appendicular skeletal structures. Bilateral L5 spondylolysis with grade 1 anterolisthesis of L5 upon S1. No suspicious lytic or blastic abnormality. SOFT TISSUES: Body wall edema/anasarca. No discrete abdominal or pelvic wall hernia. VASCULATURE: Atherosclerosis of the aorta and its branch vessels. LYMPH NODES: No significant abnormality. No enlarged lymph nodes. CT/Abdomen/Pelvis without Cont IMPRESSION: 1. No significant prostate enlargement. Mild urinary bladder distention. 2. Small to medium volume ascites of uncertain etiology. 3. Body wall edema/anasarca. 4. Large bilateral pleural effusions with associated lower lobe predominant airspace disease which may be atelectasis or perhaps pneumonia. 5. Cardiomegaly with trace pericardial effusion. 6. The left kidney is absent. Correlate for nephrectomy. 7. Bilateral L5 spondylolysis with grade 1 anterolisthesis of L5 upon S1. Degenerative changes. 8. Moderate colonic stool and gas retention. No evidence of bowel obstruction. Electronically Signed: Byron Garnett DO at 21:25 EST ,
[2024-09-17 21:10] VITALS: BMI 22.5
[2024-09-17 21:15] VITALS: BP 149/85; PULSE 83; RESP 18; TEMP 36.4; O2SAT 98
[2024-09-17 21:25] LABS: Hemoglobin A1c 6.6 % (3.8-5.6)
[2024-09-17 21:36] LABS: D-Dimer Quantitative (DVT/PE) 1.08 FEU/ug/m (0.27-0.49)
[2024-09-17 21:39] VITALS: BP 149/85; PULSE 83
[2024-09-17] MEDS: Heparin Injection (Vial) 5,000 UNIT/ML VIAL 5000 UNIT SC (21:39)
[2024-09-17] MEDS: Metoprolol Tartrate 25 MG Tablet PO (21:39)
[2024-09-17] MEDS: Bumetanide 1 MG/4 ML Vial IV (21:40)
[2024-09-17] MEDS: Insulin Lispro 100 UNIT/ML VIAL (ADMELOG) 10 UNIT IV (21:45)
[2024-09-17 21:47] LABS: BNP,B-Type NATRIURETIC PEPTIDE 4191.2 pg/mL (0-100)
[2024-09-17] MEDS: Dextrose 10%-Water 250 ML 999 ML IV (21:47)
--- NOTE | 2024-09-17 22:11 | VDLE_ITS ---
Reason For Study: Elevated d-dimer RIGHT LEFT GSV is normal. GSV is normal. CFV is compressible, spontaneous, competent CFV is compressible, spontaneous, competent, and demonstrates pulsatile venous flow. and demonstrates pulsatile venous flow. FV is compressible, spontaneous, competent FV is compressible, spontaneous, competent and demonstrates pulsatile venous flow. and demonstrates pulsatile venous flow. POP V is compressible, spontaneous, competent POP V is compressible, spontaneous, competent and demonstrates pulsatile venous flow. and demonstrates pulsatile venous flow. T/P Trunk is compressible. T/P Trunk is compressible. PTV is compressible. PTV is compressible. RT PerV is compressible. LT PerV is compressible. Procedure This is a venous duplex using B-mode, color flow and spectral Doppler. Exam performed portable in patient room. A preliminary report was called and/or faxed to Viviane PAL. VL/Venous Duplex US - Deuce Extrem Interpretation Summary Deep veins of the bilateral lower extremities are patent and compressible segme ntally. There is no evidence of bilateral lower extremity deep vein thrombosis. The bilateral great saphenous veins appear patent and compressible segmentally. Ordering Physician: Juice Raya Performed By: Tamia Cedeño RVT
[2024-09-17] MEDS: Tamsulosin HCl 0.4 MG Capsule PO (23:23)
[2024-09-18] VITALS (25 sets, daily range): BP systolic 117–161; BP diastolic 64–95; PULSE 54–85; RESP 10–24; TEMP 35.4–36.4; O2SAT 32–100
[2024-09-18 00:14] LABS: Bacteria 0 SEEN /hpf (None Seen); Mucous, Urine 0 SEEN /hpf (<or=2+); Red Blood Cells-Urine 0 SEEN /hpf (0-5); Squamous Epithelial Cells - UA 0 SEEN /hpf (0-5); White Blood Cells 0 SEEN /hpf (0-5)
[2024-09-18 00:17] LABS: Color, Urine Yellow (Yellow); Glucose, Dipstick Normal (Normal); Ketone-Dipstick Negative (Negative); Leukocyte Esterase-Dipstick Negative /ul (Negative); Nitrite-Dipstick Negative (Negative); Occult Blood-Urine 10 /ul (Negative); Protein-Dipstick 100 mg/dl (Negative); Urine Bilirubin Dipstick Negative (Negative); Urine Clarity Clear (Clear); Urine Urobilinogen Normal (Normal); Urine pH 6.5 (5.0 - 8.0)
[2024-09-18 00:33] LABS: Amphetamine Urine VISTA NEGATIVE (<1000 ng/mL); Barbiturate Urine VISTA NEGATIVE (< 200 ng/mL); Benzodiazepine Urine VISTA NEGATIVE (< 200 ng/mL); Cocaine Urine VISTA NEGATIVE (< 300 ng/mL); Ecstacy Urine VISTA NEGATIVE (< 500 ng/mL); Methadone Urine VISTA NEGATIVE (< 300 ng/mL); PCP Urine VISTA NEGATIVE (< 25 ng/mL); THC Urine VISTA NEGATIVE (< 50 ng/mL); Vista UDS pH Range 5
[2024-09-18 07:35] LABS: Absolute Lymphocyte Count 0.99 X10^3/uL (0.83-4.51); Absolute Neutrophil Count 4.4 X10^3/uL (2.0-7.7); Basophil# 0.04 X10^3/uL; Basophil% 0.7 % (0-1); Eosinophils% 1.7 % (0-5); Hematocrit 40.6 % (40-54); Hemoglobin 12.4 g/dL (13.0-16.5); Lymphocyte # 0.99 X10^3/ul (0.83-4.51); Lymphocyte % 16.7 % (19-41); Mean Corp Hgb Conc 30.5 g/dL (32-36); Mean Corpuscular Hgb 28.1 pg (27.0-32.0); Mean Corpuscular Volume 91.9 fL (80-94); Mean Platelet Vol. 10.4 fl (6.2-12.0); Monocyte# 0.41 X10^3/uL; Monocyte% 6.9 % (0-10); NRBC Flagged by Analyzer 0 % (0-5); Neutrophil # 4.36 X10^3/uL (2.7-7.7); Neutrophil % 73.7 % (47-70); Platelet Count 184 K/mm3 (150-450); RBC Distribution Width CV 15.4 % (11.6-14.6); RBC Distribution Width SD 51.2 fl (35.1-43.9); Red Blood Count 4.42 M/mm3 (4.6-6.2); White Blood Count 5.9 K/mm3 (4.4-11.0)
[2024-09-18 07:52] LABS: ALB/GLOB Ratio 0.9 RATIO (0.9-2.4); AST(SGOT) 26 U/L (15-37); Alanine Aminotransfer ALT/SGPT 20 U/L (16-61); Albumin, Serum 2.9 g/dL (3.2-5.0); Alkaline Phosphatase 123 U/L (45-117); Anion Gap 5 (5-15); BUN 36 mg/dL (7-18); BUN/Creat Ratio 20.5 RATIO (10-20); Calcium,Total 8.8 mg/dL (8.5-10.1); Chloride 109 mmol/L (98-107); Creatinine, Serum 1.76 mg/dL (0.70-1.30); EST Glomerular Filtration Rate 41 mL/min (>60); Est Glom Filt Rate - Afr Amer 50 mL/min (>60); Estimated Creatinine Clearance 36.59 ml/min; Globulin 3.3 g/dL (2.2-4.2); Glucose 52 mg/dL (74-106); Magnesium 2.2 mg/dL (1.6-2.6); Phosphorus 3.6 mg/dL (2.5-4.9); Potassium 4.5 mmol/L (3.5-5.1); Protein, Total 6.2 g/dL (6.4-8.2); Sodium Level 141 mmol/L (136-145)
--- NOTE | 2024-09-18 08:12 | RAD_ITS ---
STUDY: X-RAY CHEST REASON FOR EXAM: Male, 69 years old. lung scan TECHNIQUE: Single AP portable view of the chest. COMPARISON: September 16, 2024. FINDINGS: 1. Persistent consolidation in the infrahilar region of the right lower lobe with surrounding pulmonary edema and a small pleural effusion. If this is unresolved a CT of the chest should be obtained to ensure no lymphadenopathy or occult malignancy is present 2. Hyperinflated lungs with cystic emphysematous changes 3. Left basilar atelectasis with a small pleural effusion 4. No acute process in the upper lung bain 5. Mild cardiomegaly 6. Stable mediastinum and osseous structures There is no demonstrated abnormality of the visualized soft tissue structures of the upper abdomen. RAD/Chest 1 View IMPRESSION: Persistent consolidation in the infrahilar region of the right lower lobe with surrounding pulmonary edema and a small pleural effusion. If this is unresolved a CT of the chest should be obtained to ensure no lymphadenopathy or occult malignancy is present Electronically Signed: Joseph Grissom MD at 10:37 EST ,
[2024-09-18] MEDS: Metoprolol Tartrate 25 MG Tablet PO ×2 (08:22→21:31)
[2024-09-18] MEDS: Bumetanide 1 MG/4 ML Vial IV (08:23)
[2024-09-18] MEDS: Aspirin E.C. 81 MG Tablet PO (08:23)
[2024-09-18] MEDS: 0.9% Saline Lock 10 ML Syringe IV ×2 (08:25→19:33)
--- NOTE | 2024-09-18 08:40 | NM_ITS ---
NUCLEAR MEDICINE VENTILATION AND PERFUSION LUNG SCAN CLINICAL: Male, 69 years old. elevated d dimer TECHNIQUE: The patient was administered 5.7 mCi of Tc MAA followed by a perfusion lung scan. The patient was administered 53.6 mCi of Tc DTPA aerosol followed by a ventilation lung scan. Comparison made to prior chest radiograph dated September 18, 2024. COMPARISON STUDIES : NM - None. CR - Not available for review at this time. CT - Not available for review at this time. MR - Not available for review at this time. FINDINGS: Small matched wedge-shaped segmental ventilation defect seen in the bilateral the costophrenic angles of the lower lobes is consistent with pleural effusions. The pulmonary perfusion study demonstrates uniform perfusion throughout both lung bain. There are no demonstrated segmental or subsegmental perfusion defects The remaining aspects of the ventilation study demonstrates uniform ventilation throughout both lung bain. There are no segmental or subsegmental ventilation abnormalities. NM/Lung Scan Vent/Perf IMPRESSION: 1. Normal 99m Tc MAA pulmonary perfusion Tc DTPA aerosol ventilation imaging survey, according to revised PIOPED interpretive criteria. 2. Small bilateral pleural effusions Perfusion-only modified PIOPED II criteria The modified PIOPED II criteria have been adapted for perfusion scintigraphy (i.e. no ventilation scan) 4,5. In this scheme, the presence of a match or mismatch is determined by comparing the perfusion scan with the chest radiograph rather than a ventilation scan. A perfusion defect without a corresponding radiographic opacity is considered mismatched. In addition, the criterion of multiple matched ventilation and perfusion defects with normal radiograph has been removed from the category of pulmonary embolism absent. Perfusion-only interpretation reduces both the specificity and the proportion of nondiagnostic readings compared to ventilation and perfusion using modified PIOPED II criteria 5. Pulmonary embolism present (high probability) two or more large mismatched segmental perfusion defects or the arithmetic equivalent of moderate and/or large defects Nondiagnostic (low or intermediate probability) all other findings not falling into the pulmonary embolism present or absent categories Pulmonary embolism absent (normal or very low probability) no perfusion defects nonsegmental perfusion defects (e.g. pleural effusion at the costophrenic angle, cardiomegaly, elevated hemidiaphragm, hilar enlargement, linear atelectasis), without other perfusion defects in either lung perfusion defects smaller than corresponding chest radiographic opacity one to three small subsegmental perfusion defects solitary matched defect in a single segment in the middle or upper lung zone stripe sign (a stripe of perfusion peripheral to a defect, best seen on tangential view) large pleural effusion (occupying one-third or more of the pleural cavity), without other perfusion defects in either lung Electronically Signed: Joseph Grissom MD at 10:24 EST ,
[2024-09-18 10:24] LABS: BNP,B-Type NATRIURETIC PEPTIDE 3794.1 pg/mL (0-100)
--- NOTE | 2024-09-18 10:28 | PCM.PN.HOSP ---
Reason for Visit Reason for Visit: Diagnoses Hyperkalemia (09/17/24) Heart failure, unspecified (09/17/24) Acute kidney failure, unspecified (09/17/24) Other forms of dyspnea (09/17/24) Patient's noncompliance with other medical treatment and regimen due to unspecified reason (09/17/24) Objective Data Objective Data Vital Signs: Vital Signs Temp Pulse Resp BP Pulse Ox O2 Del Method 97.5 F L 59 L 16 151/77 H 100 Room Air 09/18/24 09:25 09/18/24 09:41 09/18/24 09:25 09/18/24 09:25 09/18/24 09:25 09/18/24 09:25 Oxygen Delivery Method Room Air Weight: 143 lb 15.39 oz Body Mass Index (BMI) 22.5 Intake & Output: Intake and Output for Last 24 Hours 09/16/24 09/17/24 09/18/24 23:59 23:59 23:59 Intake Total 250 / 250 Output Total 500 / 500 Balance -250 / -250 Lab / Micro Data 09/18/24 04:15 09/18/24 04:15 Labs: Laboratory Results - last 24 hr 09/17/24 18:20: WBC 6.2, RBC 4.38 L, Hgb 12.3 L, Hct 39.5 L, MCV 90.2, MCH 28.1, MCHC 31.1 L, RDW Std Deviation 50.2 H, RDW Coeff of Agus 15.4 H, Plt Count 183, MPV 9.7, Immature Gran % (Auto) 0.500, Neut % (Auto) 60.7, Lymph % (Auto) 25.4, Gilmer % (Auto) 9.3, Eos % (Auto) 3.1, Baso % (Auto) 1.0, Absolute Neuts (auto) 3.8, Absolute Lymphs (auto) 1.58, Nucleated RBC % 0, Sodium 144, Potassium 5.7 H, Chloride 113 H, Carbon Dioxide 29.0, Anion Gap 2 L, BUN 34 H, Creatinine 1.76 H, Estim Creat Clear Calc 37.04, Est GFR (MDRD) Af Amer 50 L, Est GFR (MDRD) Non-Af 41 L, BUN/Creatinine Ratio 19.3, Glucose 90, Calcium 8.9, B-Natriuretic Peptide 4191.2 H 09/17/24 20:53: D-Dimer Quant (PE/DVT) 1.08 H*, Hemoglobin A1c 6.6 H, PSA Screen 0.50 09/18/24 00:05: Urine Color Yellow, Urine Clarity Clear, Urine pH 6.5, Ur Specific Chestnut 1.010, Urine Protein 100 H, Urine Glucose (UA) Normal, Urine Ketones Negative, Urine Occult Blood 10 H, Urine Nitrite Negative, Urine Bilirubin Negative, Urine Urobilinogen Normal, Ur Leukocyte Esterase Negative, Urine RBC 0 SEEN, Urine WBC 0 SEEN, Ur Squamous Epith Cells 0 SEEN, Urine Bacteria 0 SEEN, Urine Mucus 0 SEEN, Urine Opiates Screen NEGATIVE, Urine Methadone Screen NEGATIVE, Ur Barbiturates Screen NEGATIVE, Ur Phencyclidine Scrn NEGATIVE, Ur Amphetamines Screen NEGATIVE, MDMA (Ecstasy) Screen NEGATIVE, U Benzodiazepines Scrn NEGATIVE, Urine Cocaine Screen NEGATIVE, U Cannabinoids Screen NEGATIVE, Ur Drug Screen Comment 09/18/24 04:15: WBC 5.9, RBC 4.42 L, Hgb 12.4 L, Hct 40.6, MCV 91.9, MCH 28.1, MCHC 30.5 L, RDW Std Deviation 51.2 H, RDW Coeff of Agus 15.4 H, Plt Count 184, MPV 10.4, Immature Gran % (Auto) 0.300, Neut % (Auto) 73.7 H, Lymph % (Auto) 16.7 L, Gilmer % (Auto) 6.9, Eos % (Auto) 1.7, Baso % (Auto) 0.7, Absolute Neuts (auto) 4.4, Absolute Lymphs (auto) 0.99, Nucleated RBC % 0, Sodium 141, Potassium 4.5, Chloride 109 H, Carbon Dioxide 27.0, Anion Gap 5, BUN 36 H, Creatinine 1.76 H, Estim Creat Clear Calc 36.59, Est GFR (MDRD) Af Amer 50 L, Est GFR (MDRD) Non-Af 41 L, BUN/Creatinine Ratio 20.5 H, Glucose 52 L, Calcium 8.8, Phosphorus 3.6, Magnesium 2.2, Total Bilirubin 0.60, AST 26, ALT 20, Alkaline Phosphatase 123 H, B-Natriuretic Peptide 3794.1 H, Total Protein 6.2 L, Albumin 2.9 L, Globulin 3.3, Albumin/Globulin Ratio 0.9 Radiography Diagnostic Testing: Radiology Impression Abdomen/Pelvis CT 09/17/24 19:58 IMPRESSION: 1. No significant prostate enlargement. Mild urinary bladder distention. 2. Small to medium volume ascites of uncertain etiology. 3. Body wall edema/anasarca. 4. Large bilateral pleural effusions with associated lower lobe predominant airspace disease which may be atelectasis or perhaps pneumonia. 5. Cardiomegaly with trace pericardial effusion. 6. The left kidney is absent. Correlate for nephrectomy. 7. Bilateral L5 spondylolysis with grade 1 anterolisthesis of L5 upon S1. Degenerative changes. 8. Moderate colonic stool and gas retention. No evidence of bowel obstruction. Electronically Signed: Byron Garnett DO at 21:25 EST , Lung Scan-VQ [place] 09/18/24 08:40 IMPRESSION: 1. Normal 99m Tc MAA pulmonary perfusion Tc DTPA aerosol ventilation imaging survey, according to revised PIOPED interpretive criteria. 2. Small bilateral pleural effusions Perfusion-only modified PIOPED II criteria The modified PIOPED II criteria have been adapted for perfusion scintigraphy (i.e. no ventilation scan) 4,5. In this scheme, the presence of a match or mismatch is determined by comparing the perfusion scan with the chest radiograph rather than a ventilation scan. A perfusion defect without a corresponding radiographic opacity is considered mismatched. In addition, the criterion of multiple matched ventilation and perfusion defects with normal radiograph has been removed from the category of pulmonary embolism absent. Perfusion-only interpretation reduces both the specificity and the proportion of nondiagnostic readings compared to ventilation and perfusion using modified PIOPED II criteria 5. Pulmonary embolism present (high probability) two or more large mismatched segmental perfusion defects or the arithmetic equivalent of moderate and/or large defects Nondiagnostic (low or intermediate probability) all other findings not falling into the pulmonary embolism present or absent categories Pulmonary embolism absent (normal or very low probability) no perfusion defects nonsegmental perfusion defects (e.g. pleural effusion at the costophrenic angle, cardiomegaly, elevated hemidiaphragm, hilar enlargement, linear atelectasis), without other perfusion defects in either lung perfusion defects smaller than corresponding chest radiographic opacity one to three small subsegmental perfusion defects solitary matched defect in a single segment in the middle or upper lung zone stripe sign (a stripe of perfusion peripheral to a defect, best seen on tangential view) large pleural effusion (occupying one-third or more of the pleural cavity), without other perfusion defects in either lung Electronically Signed: Joseph Grissom MD at 10:24 EST Reading Location ID and State: [facility] / [place] , Service support , Physical Exam Narrative Seen and examined in the morning and then in the afternoon during the CODE BLUE In the morning Patient was treated again for leg swelling and shortness of breath gradually worsening for 2 to 3 weeks and was in the ED a day before admission and was prescribed furosemide but did not resolve any symptoms therefore came to admission. He has dry cough for 4 to 5 days. Denies sputum production or fever. He also history of his smoking 1 PPD started in teenage and quit 18 years ago Physical exam General: Alert, Oriented x3, Cooperative HEENT: Atraumatic, PERRLA, EOMI, Normocephalic Oral: No Gingival or Mucosal Lesions/ Ulcerations Neck: Supple, No JVD, Negative Carotid Bruits Chest wall/Lungs: Air entry diminished in bilateral lung bases. Mild bilateral inspiratory rales. Small pleural effusion Cardiovascular: Regular rate, Regular Rhythm, Normal S1, Normal S2, No M/G/R Abdomen: Bowel Sounds Present, Soft, Non Tender, Non-Distended : No dysuria. No renal angle tenderness. No suprapubic tenderness. Extremities: 2+ pitting edema, Capillary Refill Less than 3 Seconds Skin: No rashes, No breakdown Musculoskeletal: No Tenderness to Palpation of Joints or Extremities Neurological: Cranial nerves II-XII grossly intact, DTR 2+/4. No acute focal neurological deficit. Psych/Mental Status: Normal Affect, Appropriate. CODE BLUE findings as described in a separate note Assessment & Plan Assessment/Plan (1) CHF (congestive heart failure): QUALIFIERS: Heart failure chronicity: acute on chronic Heart failure type: unspecified Qualified Code(s): I50.9 - Heart failure, unspecified (2) Dyspnea on exertion: (3) Hyperkalemia: (4) JAMES (acute kidney injury): (5) Medical non-compliance: PLAN: Plan 69-year-old gentleman was admitted with shortness of breath, bilateral lower extremity swelling for 2 to 3 weeks. He denied cough. 1. AE CHF;: Patient is being admitted in PCU. Started on IV bumetanide in and metoprolol 25 mg twice daily. 2D echo shows EF 35%, stage II diastolic dysfunction, severe global hypokinesis, mildly dilated RV. Moderate biatrial dilatation and bubble contrast study positive for PFO. [employer] Wind Instrument Repairer is consulted. 2. Syncope while defecation, vasovagal and CODE BLUE with bilateral pleural effusion and concern for pneumonia: Patient had 6-minute of CODE BLUE in afternoon while defecation in the bathroom. He fell down therefore CT head also ordered. Reed [employer] Instrument Repairer and intensive consulted. Earlier VQ scan negative.Ceftriaxone started with lower lung airspace consolidation although clinically less likely pneumonia. Pneumonia workup ordered 3. JAMES with hyperkalemiA likely due to urinary retention/cardiorenal disease with solitary Right kidney: Patient potassium improved from 5.7-4.5. Admitting creatinine 1.76 worse from 1.6 on 09/16. Had Kayexalate along with hyperkalemia cocktail. CT abdomen shows no significant prostate enlargement but mild urinary bladder distention. Small to medium ascites. Body wall anasarca. Large bilateral pleural effusion with associated lower lobe predominant airspace disease. Left kidney absent with moderate colonic stool and gas retention. No evidence of bowel obstruction. 4. Subclinical Hypothyroidism with elevated TSH of 8.59 but with normal FT4 of 1.08 and normal FT3 of 2.2 on recent admission adding to the medical complexity of #1 - #3 - Noted. Thyroid studies should be rechecked in 4-6 weeks. 5. Essential hypertension; on furosemide - metoprolol tartrate 25 mg p.o. twice daily. 6. History of DM-2; currently not on treatment - Check HgbA1c to confirm status. 7. Former tobacco abuse - Noted. 8. Osteoarthritis - Give Tylenol prn. 9. DVT prophylaxis -heparin 5000 units sq TID plus SCD's. Charges/Coding Addendum Addendum: Time spent in the morning and then the CODE BLUE is more than 35 minutes Visit Charges Inpatient E&M: 57102 Subs Hosp L3
[2024-09-18 11:50] LABS: Bedside Glucose 107 mg/dL (74-106)
[2024-09-18] MEDS: Heparin Injection (Vial) 5,000 UNIT/ML VIAL 5000 UNIT SC ×2 (13:24→21:29)
--- NOTE | 2024-09-18 14:15 | NURSING ---
pt tele alarm ringing with HR in 30's nursing went back to room and found pt down on floor in bathroom. pt purple in color unresponsive and did not have pulse. nursing staff call code, CPR compressions started.
--- NOTE | 2024-09-18 14:27 | CASEMGMT ---
NASIR responded to a code blue. SW called patient's brother Carroll. SW let Carroll know that patient has had a big change in his care and if he could come to the hospital. Carroll asked what was happening and SW did tell Carroll that they are doing CPR on patient right now. Carroll said he will be in right away. Carroll will have his cell phone with him if the physician needs to call him. Director of ICU Kristie who was present was notified and notified staff in room. Pili CORDOVA
--- NOTE | 2024-09-18 14:53 | PN.HOSP_ITS ---
Hospitalist Note CODE BLUE note Patient had cardiac arrest 1412 hrs. on 09/18/2024 As per nursing report, patient in the bathroom with the door locked. On the monitor patient was having bradycardia to 30s and then rushed to the room, he was found on the floor with pulseless and no spontaneous breathing therefore started CODE BLUE protocol. CODE BLUE protocol with high-quality CPR started. Patient had 2 rounds of epinephrine. [employer] Switchboard Operator was code leader. Patient was bagged with [id number]. On the monitor pulseless activity obtained. Patient had successful ROSC at 1418 hrs. therefore code ran for 6 minutes. Post ROSC vitals were obtained. Patient having spontaneous breathing and put on nasal cannula. Vitals BP 150/95, heart rate 85/min, pulse ox 97% on 3 L of oxygen. Twelve-lead EKG was obtained. Twelve-lead EKG shows sinus rhythm, RAD, incomplete RBBB, low voltage QRS. Postcode stat labs were ordered. ABG and chest x-ray portable ordered. Patient transferred to ICU.
[2024-09-18 14:54] LABS: Bedside Glucose 309 mg/dL (74-106)
--- NOTE | 2024-09-18 15:08 | NURSING ---
pt transferred to ICU, report given at bedside.
--- NOTE | 2024-09-18 15:34 | RAD_ITS ---
STUDY: X-RAY CHEST REASON FOR EXAM: Male, 69 years old. s/p code blue TECHNIQUE: Single AP portable view of the chest. COMPARISON: 09/18/2024, 9:30 AM. FINDINGS: No significant change. Stable increased pulmonary density in both lung bases especially the right. Probable small right pleural effusion. RAD/Chest 1 View (Portable) IMPRESSION: No significant change since earlier today. Electronically Signed: Marcelo Vargas MD at 16:30 EST ,
--- NOTE | 2024-09-18 16:30 | CT_ITS ---
STUDY: CT BRAIN WITHOUT CONTRAST REASON FOR EXAM: Male, 69 years old. There is limited enhancement of the main pulmonary artery and right and left pulmonary arteries. There is limited enhancement of the bilateral peripheral pulmonary arteries. There is no demonstrated large or obvious or saddle pulmonary embolism. Nuclear medicine VQ scan can be obtained if there are continued clinical concerns. RADIATION DOSAGE (If Supplied By Facility): CTDIvol = ( 44.99 ) mGy, DLP = ( 812.98 ) mGycm TECHNIQUE: Transaxial CT imaging of the brain was performed without administration of intravenous contrast material. Individualized dose optimization techniques were used for this CT. COMPARISON: Head CT dated May 21, 2019 FINDINGS: No demonstrated skull fracture or pneumocephalus or subdural bleed or midline shift. No demonstrated hydrocephalus or extra-axial fluid collection. Normal soft tissue structures. Normal calvarium. There is mild cerebral atrophy with widening of the extra-axial spaces and ventricular dilatation. There are areas of decreased attenuation within the white matter tracts of the supratentorial brain, consistent with microvascular disease changes. Normal basal ganglia and thalami. Normal brainstem. There is mild cerebellar atrophy. There is no intracranial hemorrhage. There are no findings of an acute ischemic infarction. Normal visualized paranasal sinuses. CT/Brain/Head without Contrast IMPRESSION: 1. Chronic ischemic and involutional changes of the brain. Electronically Signed: Joseph Grissom MD at 15:57 EST ,
[2024-09-18 16:53] LABS: Absolute Lymphocyte Count 0.67 X10^3/uL (0.83-4.51); Absolute Neutrophil Count 5.8 X10^3/uL (2.0-7.7); Basophil# 0.03 X10^3/uL; Basophil% 0.4 % (0-1); Eosinophil# 0.04 X10^3/uL; Eosinophils% 0.6 % (0-5); Hematocrit 39.3 % (40-54); Hemoglobin 12.3 g/dL (13.0-16.5); Lymphocyte # 0.67 X10^3/ul (0.83-4.51); Lymphocyte % 9.8 % (19-41); Mean Corp Hgb Conc 31.3 g/dL (32-36); Mean Corpuscular Volume 89.3 fL (80-94); Mean Platelet Vol. 10.4 fl (6.2-12.0); Monocyte# 0.28 X10^3/uL; Monocyte% 4.1 % (0-10); NRBC Flagged by Analyzer 0 % (0-5); Neutrophil # 5.78 X10^3/uL (2.7-7.7); Neutrophil % 84.4 % (47-70); Platelet Count 162 K/mm3 (150-450); RBC Distribution Width CV 15.1 % (11.6-14.6); RBC Distribution Width SD 49.3 fl (35.1-43.9); White Blood Count 6.9 K/mm3 (4.4-11.0)
[2024-09-18 17:18] LABS: Lactic Acid 1.5 mmol/L (0.4-1.9)
[2024-09-18 17:34] LABS: ALB/GLOB Ratio 0.8 RATIO (0.9-2.4); AST(SGOT) 33 U/L (15-37); Alanine Aminotransfer ALT/SGPT 27 U/L (16-61); Albumin, Serum 2.7 g/dL (3.2-5.0); Alkaline Phosphatase 123 U/L (45-117); Anion Gap 7 (5-15); BUN 41 mg/dL (7-18); BUN/Creat Ratio 21.1 RATIO (10-20); Calcium,Total 8.3 mg/dL (8.5-10.1); Chloride 106 mmol/L (98-107); Creatinine, Serum 1.94 mg/dL (0.70-1.30); EST Glomerular Filtration Rate 37 mL/min (>60); Est Glom Filt Rate - Afr Amer 44 mL/min (>60); Estimated Creatinine Clearance 33.19 ml/min; Globulin 3.3 g/dL (2.2-4.2); Glucose 269 mg/dL (74-106); Magnesium 2.2 mg/dL (1.6-2.6); Potassium 6.8 mmol/L (3.5-5.1); Sodium Level 137 mmol/L (136-145); Troponin-I HS 140 pg/mL (3.0-78.0)
--- NOTE | 2024-09-18 17:43 | EKG12_ITS ---
Test Reason : post code Blood Pressure : */* mmHG Vent. Rate : 86 BPM Atrial Rate : 86 BPM P-R Int : 136 ms QRS Dur : 102 ms QT Int : 410 ms P-R-T Axes : 45 -32 134 degrees QTcB Int : 490 ms Normal sinus rhythm Possible Left atrial enlargement Left axis deviation Incomplete right bundle branch block Minimal voltage criteria for LVH, may be normal variant ( [place] product ) Poor R-wave progression Abnormal ECG When compared with ECG of 18-Sep-2024 18:01, MANUAL COMPARISON REQUIRED DATA IS UNCONFIRMED Confirmed by Ramon Masters [id number]), advertising editor DIANA DOVER ([id number]) on 09/23/2024 9:13:39 AM Referred By: Sonam Confirmed By: Ramon Masters
--- NOTE | 2024-09-18 17:44 | EKG12_ITS ---
Test Reason : hyperkalemia Blood Pressure : */* mmHG Vent. Rate : 57 BPM Atrial Rate : 57 BPM P-R Int : 152 ms QRS Dur : 98 ms QT Int : 536 ms P-R-T Axes : 52 51 139 degrees QTcB Int : 521 ms Sinus bradycardia Incomplete right bundle branch block Poor R wave progression Nonspecific T wave abnormality, consider lateral ischemia Prolonged QT Abnormal ECG Confirmed by Ramon Masters ([id number]), fan mail editor DIANA DOVER ([id number]) on 09/23/2024 9:10:30 AM Referred By: Nicholas Confirmed By: Ramon Masters
[2024-09-18] MEDS: Ceftriaxone 1 GM/50 ML BAG IV (18:17)
[2024-09-18] MEDS: Tamsulosin HCl 0.4 MG Capsule PO (18:17)
[2024-09-18] MEDS: Insulin Lispro 100 UNIT/ML VIAL (ADMELOG) 10 UNIT IV (18:44)
[2024-09-18] MEDS: Calcium Gluconate IV 2 GM in 0.9% Normal Saline (100mL Bag) 100 ML IV (18:44)
[2024-09-18] MEDS: Sodium Polystyrene Sulfonate 15 GM/60 ML UDC 30 GM PO (18:45)
[2024-09-18] MEDS: Ondansetron 4 MG/2 ML Vial IV (19:33)
--- NOTE | 2024-09-18 19:42 | EKG12_ITS ---
Test Reason : CODE Blood Pressure : */* mmHG Vent. Rate : 83 BPM Atrial Rate : 83 BPM P-R Int : 158 ms QRS Dur : 102 ms QT Int : 444 ms P-R-T Axes : 64 243 109 degrees QTcB Int : 521 ms Poor data quality, interpretation may be adversely affected Normal sinus rhythm Right superior axis deviation Low voltage QRS Incomplete right bundle branch block Possible Inferior infarct , age undetermined T wave abnormality, consider anterior ischemia Prolonged QT Abnormal ECG When compared with ECG of 17-Sep-2024 18:05, MANUAL COMPARISON REQUIRED DATA IS UNCONFIRMED Confirmed by Ramon Masters ([id number]), assistant editor MARK RAMSEY ([id number]) on 09/20/2024 6:49:59 AM Referred By: Confirmed By: Ramon Masters
--- NOTE | 2024-09-18 21:20 | NURSING ---
2057- this RN and Ronny Dumont RN bedside w/ pt, getting pt back to bed form [facility]. After laying in bed pt became hypoxic, SpO2 dropping as low as 32%. Nonrebreather placed on pt and pt sat into high fowlers. ICU Carlos Puga RN to bedside along enma/ Carmita Pruitt RT. Pt already bradycardic baseline but HR 50 bpm. Pt staring off into space and RR shallow. This RN instructed ICU charge Carlos Puga RN to call a PANEL INSTALLER @ 2099. Pt very slowly began to recover, 2102 Dr. Aguilar to bedside, at this point pt was satting mid 90's on the nonrebreather. Situation explained to Dr. Aguilar bedside, Dr. Aguilar gave no new orders at this time, signed the PANEL INSTALLER paper and left unit.
[2024-09-18 21:38] LABS: Anion Gap 7 (5-15); BUN 44 mg/dL (7-18); BUN/Creat Ratio 20.8 RATIO (10-20); Calcium,Total 9.2 mg/dL (8.5-10.1); Chloride 109 mmol/L (98-107); Creatinine, Serum 2.12 mg/dL (0.70-1.30); EST Glomerular Filtration Rate 33 mL/min (>60); Est Glom Filt Rate - Afr Amer 40 mL/min (>60); Estimated Creatinine Clearance 30.37 ml/min; Glucose 109 mg/dL (74-106); Sodium Level 142 mmol/L (136-145)
[2024-09-18] MEDS: guaiFENesin/D-Methorphan TAB.SR.12H 2 TABLET PO (21:41)
--- NOTE | 2024-09-18 21:58 | RAD_ITS ---
STUDY: X-RAY CHEST REASON FOR EXAM: Male, 69 years old. hypoxia TECHNIQUE: Single AP portable view of the chest. COMPARISON: Same day, 3:33 PM. FINDINGS: Increasing atelectasis or infiltrate in both lung bases, right worse than left. No other changes since earlier today. Electronically Signed: Marcelo Vargas MD at 23:07 EST , RAD/Chest 1 View (Portable) IMPRESSION: undefined
[2024-09-18 22:30] LABS: BNP,B-Type NATRIURETIC PEPTIDE 4809.7 pg/mL (0-100)
[2024-09-18 22:42] LABS: Allen Test Positive; Base Excess -3 mmol/L (-2 to +2); Bicarbonate 22.1 mmol/L (22-26); Blood Gas Specimen Type ART; Mode Not entered; O2 Delivery Device NRB; PO2 93 mmHG (75-100); SITE L Radial; SO2 97 % (95-99); Total Carbon Dioxide 23 mmol/L; pCO2 35.9 mmHg (35-45)
[2024-09-18 22:50] LABS: Troponin-I HS 286 pg/mL (3.0-78.0)
--- NOTE | 2024-09-18 23:27 | NURSING ---
Brandon Colon from [facility] called for update on pt, updated provided by this RN. No changes in status.
[2024-09-19] VITALS (43 sets, daily range): BP systolic 84–216; BP diastolic 43–136; PULSE 54–125; RESP 12–33; TEMP 36.5–37.4; O2SAT 53–100; BMI 22.5
[2024-09-19 04:27] LABS: Absolute Lymphocyte Count 1.14 X10^3/uL (0.83-4.51); Absolute Neutrophil Count 5.4 X10^3/uL (2.0-7.7); Basophil# 0.01 X10^3/uL; Basophil% 0.1 % (0-1); Eosinophil# 0.06 X10^3/uL; Eosinophils% 0.8 % (0-5); Hematocrit 35.7 % (40-54); Hemoglobin 11.1 g/dL (13.0-16.5); Lymphocyte # 1.14 X10^3/ul (0.83-4.51); Mean Corp Hgb Conc 31.1 g/dL (32-36); Mean Corpuscular Hgb 27.5 pg (27.0-32.0); Mean Corpuscular Volume 88.6 fL (80-94); Mean Platelet Vol. 10.7 fl (6.2-12.0); Monocyte# 0.47 X10^3/uL; Monocyte% 6.6 % (0-10); NRBC Flagged by Analyzer 0 % (0-5); Neutrophil # 5.41 X10^3/uL (2.7-7.7); Neutrophil % 76.1 % (47-70); Platelet Count 181 K/mm3 (150-450); RBC Distribution Width CV 15.3 % (11.6-14.6); RBC Distribution Width SD 49.5 fl (35.1-43.9); Red Blood Count 4.03 M/mm3 (4.6-6.2); White Blood Count 7.1 K/mm3 (4.4-11.0)
[2024-09-19 04:34] LABS: Anion Gap 9 (5-15); BUN 42 mg/dL (7-18); BUN/Creat Ratio 21.9 RATIO (10-20); Calcium,Total 8.8 mg/dL (8.5-10.1); Chloride 106 mmol/L (98-107); Creatinine, Serum 1.92 mg/dL (0.70-1.30); EST Glomerular Filtration Rate 37 mL/min (>60); Est Glom Filt Rate - Afr Amer 45 mL/min (>60); Estimated Creatinine Clearance 33.54 ml/min; Glucose 136 mg/dL (74-106); Magnesium 2.3 mg/dL (1.6-2.6); Phosphorus 5.1 mg/dL (2.5-4.9); Potassium 5.3 mmol/L (3.5-5.1); Sodium Level 139 mmol/L (136-145)
[2024-09-19] MEDS: Heparin Injection (Vial) 5,000 UNIT/ML VIAL 5000 UNIT SC ×3 (05:22→21:22)
--- NOTE | 2024-09-19 08:23 | PCM.CONS.C ---
Assessment & Plan Assessment/Plan (1) CHF (congestive heart failure): QUALIFIERS: Heart failure type: unspecified Heart failure chronicity: acute on chronic Qualified Code(s): I50.9 - Heart failure, unspecified PLAN: Patient denies any previous history of a cardiac event. He does report progressive dyspnea on exertion the point he can barely walk around his house without profound shortness of breath. He has also had increasing lower extremity edema over the last several weeks. The patient also has a history of diabetes, hypertension, hyperlipidemia and he is a remote smoker. Patient is echocardiogram shows severe global LV dysfunction with a EF in the 35% range. He does have elevated pulmonary artery pressures in the 45-50 mmHg range. He is requiring significant levels of oxygen and to maintain his O2 sats. And his renal function is deteriorated to a creatinine of 1.92 with a BUN of 42 and a creatinine clearance of 37. He also has a BNP estimated 4800 but this is in the face of acute renal insufficiency/failure. I would recommend that we attempt to treat him medically. His only meds at home were aspirin and furosemide. I agree with continuing with IV diuretic therapy and hydralazine orally for afterload reduction therapy with low-dose nitrates. He should be continued on the metoprolol tartrate 25 mg twice daily and held for heart rate less than 55. The patient also has significant hypoalbuminemia and is spilling protein significantly in his urine. At least part of his lower extremity edema appears to be related to a low oncotic pressure related to his hypoalbuminemia. The patient's long-term prognosis is not good given his multisystem organ disease with his lungs kidneys and heart. Once the patient is on guideline directed medical therapy and tolerating in the home environment we should repeat echocardiogram as a limited echo in the next 6 to 12 weeks. (2) Dyspnea on exertion: PLAN: This is multifactorial. He has a remote smoker he does have some pulmonary hypertension he also has some LV dysfunction. Will need to address this and agree with pulmonary evaluation and await their treatment recommendations. (3) Hyperkalemia: PLAN: Patient's hyperkalemia must be related to his acute renal failure. He was on no potassium saving medical therapy on admission. (4) JAMES (acute kidney injury): PLAN: Continue to be monitored and treated by the primary service. (5) Cardiac arrest: PLAN: The cardiac arrest was documented that occurred at the time of defecation and it was caught on telemetry showing profound bradycardia. Immediately following that the patient recovered with 6 minutes of CPR and has had no further ectopy. The patient does have known LV dysfunction EF of the 35% range there was no tacky arrhythmia documented as the etiology of this event. I suspect this was a vasovagal event related to his bowel movement. It would recommend we continue to follow him closely. We should avoid any additional rate modulating drugs and monitor his heart rate. He does need to be on low-dose beta-zaid therapy to treat his LV dysfunction. (6) PFO (patent foramen ovale): PLAN: Patient has no history of TIA or CVA. His lower extremity showed no DVTs on ultrasound done this admission. I do not feel that further evaluation and treatment is indicated of this PFO at this time. PLAN: Plan 1. Will titrate the hydralazine and add low-dose nitrates to blood pressure response. 2. Will continue metoprolol and monitor heart rate and blood pressure response. 3. Continue IV diuretic therapy. 4. Would avoid any potassium retaining medical therapy. 5. Will follow-up with you as directed and assist with titration of medical therapy. HPI Consult Data Date of Consult: 09/19/24 HPI Narrative Reason for Consultation: Recent cardiac arrest. HPI Narrative: ZOE MENDEZ, is a 69 M who presents to the hospital with progressive lower extremity edema. The patient had been evaluated and treated in the ER with diuretic therapy and it was not resolving. The patient was subsequently admitted to the hospital for more aggressive and intensive diuretic therapy. While in the restroom having a bowel movement became bradycardic and went out. He underwent ACLS for 6 minutes with return of spontaneous circulation. The patient has no recollection of the event other than remember going into the restroom. He has no previous history of any event like this. His EKG done post arrest did not show any new ST or T wave changes. However it did show prolonged QT interval and his potassium was measured at 6.8. The patient was transferred to the intensive care unit from the progressive care unit and is remained in sinus rhythm since that point in time with no significant ectopy. The patient has no previous cardiac history. He denies any history of syncope or near syncope denies any ischemic symptoms. The patient does report over the last several weeks he has had progressive dyspnea on exertion that when he can hardly walk from his bed to the restroom without getting short of breath. He does have a history of remote smoking but quit 18 years ago. He does drop his O2 sat with minimal activity in the hospital per the nursing staff. Echocardiogram done 09/18/2024 showed a mildly dilated left ventricle with an EF estimated 35% and stage II diastolic dysfunction there was severe global hypokinesis of the left ventricle. There was no regional wall motion abnormality noted. The right ventricle was mildly dilated but appeared to have normal systolic function pulmonary artery pressures were estimated 45 to 50 mmHg consistent with mild to moderate pulmonary hypertension. Both atria were moderately dilated and a bubble contrast study was positive for PFO. There was 2+ MR and 2+ TR documented there is no significant aortic valve disease or pulmonic valve disease. No pericardial effusion was documented. The patient has a history of chronic kidney disease, hypertension, hyperlipidemia and diabetes. He has a history of significant lower extremity edema that has been difficult to control. He also has low protein and albumin on his laboratory evaluation he also has significant proteinuria on his urinalysis. [facility] Medical History History of COVID-19 Diabetes Home Medications ?Medication ?Instructions ?Recorded ?Last Taken ?Type furosemide 40 mg tablet 40 mg PO DAILY 7 days #7 tabs 09/16/24 09/17/24 Rx aspirin 81 mg tablet,delayed 81 mg PO DAILY 09/17/24 09/17/24 History release Allergy/AdvReac Type Severity Reaction Status Date / Time No Known Allergies Allergy Verified 09/17/24 16:53 Surgical History Hx of thumb surgery Social History Smoking Status: Former smoker ROS Constitutional Constitutional: Reports as per HPI Eyes Eyes: Reports systems reviewed and no addt'l complaints, except as documented ENT HEENT: Reports systems reviewed and no addt'l complaints, except as documented Cardiovascular Cardiovascular: Reports as per HPI Respiratory/Chest Respiratory/Chest: Reports as per HPI Gastrointestinal Gastrointestinal: Reports systems reviewed and no addt'l complaints, except as documented Genitourinary Genitourinary: Reports as per HPI Musculoskeletal Musculoskeletal: Reports systems reviewed and no addt'l complaints, except as documented Integumentary Integumentary: Reports systems reviewed and no addt'l complaints, except as documented Neurologic Neurologic: Reports systems reviewed and no addt'l complaints, except as documented Psychiatric Psychiatric: Reports systems reviewed and no addt'l complaints, except as documented Endocrine Endocrinology: Reports as per HPI Hematologic/Lymphatic Hematologic/Lymphatic: Reports systems reviewed and no addt'l complaints, except as documented Allergic/Immunologic Allergic/Immunologic: Reports systems reviewed and no addt'l complaints, except as documented Physical Exam Const alert Constitutional Narrative: Patient is thin frail and sickly appearing. HEENT normocephalic Eyes EOMs intact bilaterally Neck Neck Narrative: JVD noted the angle of the jaw at 30 degrees in the bed. Resp normal respiratory effort Auscultation: breath sounds absent right (Base.) and diminished lung sounds diffuse Cardio Jugular Venous Distention: JVD to the level of the angle of the jaw (Resting at 30 degrees in bed.) Rate: regular rate Rhythm: regular rhythm Heart Sounds: S1 normal, S2 normal and murmur systolic II/ soft base; Negative for click or gallop GI soft to palpation Extremity General Extremity: edema bilateral lower extremity Details: moderate Neuro Neuro Narrative: Alert and oriented x 3 Psych mental status grossly normal Risk Stratification Risk Stratification Applicable: No Charges/Coding Visit Charges Inpatient E&M: 42872 Init Hosp L3 Objective Data Vital Signs: Vital Signs Temp Pulse Resp BP Pulse Ox O2 Del Method O2 Flow Rate 97.7 F L 56 L 14 141/75 H 100 High Flow 10 09/19/24 04:00 09/19/24 07:00 09/19/24 07:00 09/19/24 07:00 09/19/24 07:00 09/19/24 07:00 09/19/24 07:00 FiO2 100 09/18/24 21:25 Oxygen Flow Rate (L/min) 10 Oxygen Delivery Method High Flow Weight: 143 lb 11.862 oz Body Mass Index (BMI) 22.5 Intake & Output: Intake and Output for Last 24 Hours 09/17/24 09/18/24 09/19/24 23:59 23:59 23:59 Intake Total 250 / 250 420 / 780 540 / 540 Output Total 500 / 500 0 / 0 Balance -250 / -250 420 / 780 540 / 540 Lab / Micro Data Attestation: I reviewed the patient's lab results. 09/19/24 03:45 09/19/24 03:45 Labs: Laboratory Results - last 24 hr 09/18/24 04:15: B-Natriuretic Peptide 3794.1 H 09/18/24 11:32: POC Glucose 107 H 09/18/24 14:34: POC Glucose 309 H 09/18/24 16:40: WBC 6.9, RBC 4.40 L, Hgb 12.3 L, Hct 39.3 L, MCV 89.3, MCH 28.0, MCHC 31.3 L, RDW Std Deviation 49.3 H, RDW Coeff of Agus 15.1 H, Plt Count 162, MPV 10.4, Immature Gran % (Auto) 0.700, Neut % (Auto) 84.4 H, Lymph % (Auto) 9.8 L, Thayer % (Auto) 4.1, Eos % (Auto) 0.6, Baso % (Auto) 0.4, Absolute Neuts (auto) 5.8, Absolute Lymphs (auto) 0.67 L, Nucleated RBC % 0, Sodium 137, Potassium 6.8 H*, Chloride 106, Carbon Dioxide 24.0, Anion Gap 7, BUN 41 H, Creatinine 1.94 H, Estim Creat Clear Calc 33.19, Est GFR (MDRD) Af Amer 44 L, Est GFR (MDRD) Non-Af 37 L, BUN/Creatinine Ratio 21.1 H, Glucose 269 H, Lactic Acid 1.5, Calcium 8.3 L, Magnesium 2.2, Total Bilirubin 0.60, AST 33, ALT 27, Alkaline Phosphatase 123 H, Troponin I High Sens 140 H*, Total Protein 6.0 L, Albumin 2.7 L, Globulin 3.3, Albumin/Globulin Ratio 0.8 L 09/18/24 21:15: Sodium 142, Potassium 5.0, Chloride 109 H, Carbon Dioxide 26.0, Anion Gap 7, BUN 44 H, Creatinine 2.12 H, Estim Creat Clear Calc 30.37, Est GFR (MDRD) Af Amer 40 L, Est GFR (MDRD) Non-Af 33 L, BUN/Creatinine Ratio 20.8 H, Glucose 109 H, Calcium 9.2, Troponin I High Sens 286 H* 09/18/24 22:04: B-Natriuretic Peptide 4809.7 H 09/19/24 03:45: WBC 7.1, RBC 4.03 L, Hgb 11.1 L, Hct 35.7 L, MCV 88.6, MCH 27.5, MCHC 31.1 L, RDW Std Deviation 49.5 H, RDW Coeff of Agus 15.3 H, Plt Count 181, MPV 10.7, Immature Gran % (Auto) 0.400, Neut % (Auto) 76.1 H, Lymph % (Auto) 16.0 L, Thayer % (Auto) 6.6, Eos % (Auto) 0.8, Baso % (Auto) 0.1, Absolute Neuts (auto) 5.4, Absolute Lymphs (auto) 1.14, Nucleated RBC % 0, Sodium 139, Potassium 5.3 H, Chloride 106, Carbon Dioxide 23.0, Anion Gap 9, BUN 42 H, Creatinine 1.92 H, Estim Creat Clear Calc 33.54, Est GFR (MDRD) Af Amer 45 L, Est GFR (MDRD) Non-Af 37 L, BUN/Creatinine Ratio 21.9 H, Glucose 136 H, Calcium 8.8, Phosphorus 5.1 H, Magnesium 2.3 Micro: Microbiology 09/18/24 23:38 Stool Clostridioides difficile (PCR) - Final 09/18/24 17:33 Mucosa - Nasopharyngeal Respiratory Panel (PCR) - Final ABG Data ABG results: ABG 09/18/24 22:38 Specimen Type ART Sample Site L Radial pH 7.40 Bicarbonate Actual 22.1 Total CO2 23 Base Excess -3 L O2 Saturation 97 O2 % 100.0 ABG pCO2 35.9 ABG pO2 93 Fred Test Positive O2 Delivery Device NRB Vent Mode Not entered Rhythm Strip Rhythm Strip: Sinus Rhythm Rate: 55 Cardiology Labs/Tests 09/18/24 04:15: B-Natriuretic Peptide 3794.1 H 09/18/24 16:40: WBC 6.9, RBC 4.40 L, Hgb 12.3 L, Hct 39.3 L, MCV 89.3, MCH 28.0, MCHC 31.3 L, Plt Count 162, MPV 10.4, Immature Gran % (Auto) 0.700, Neut % (Auto) 84.4 H, Lymph % (Auto) 9.8 L, Thayer % (Auto) 4.1, Eos % (Auto) 0.6, Baso % (Auto) 0.4, Absolute Neuts (auto) 5.8, Nucleated RBC % 0, Sodium 137, Potassium 6.8 H*, Chloride 106, Carbon Dioxide 24.0, Anion Gap 7, BUN 41 H, Creatinine 1.94 H, Est GFR (MDRD) Af Amer 44 L, Est GFR (MDRD) Non-Af 37 L, BUN/Creatinine Ratio 21.1 H, Glucose 269 H, Lactic Acid 1.5, Calcium 8.3 L, Magnesium 2.2, Total Bilirubin 0.60 09/18/24 21:15: Sodium 142, Potassium 5.0, Chloride 109 H, Carbon Dioxide 26.0, Anion Gap 7, BUN 44 H, Creatinine 2.12 H, Est GFR (MDRD) Af Amer 40 L, Est GFR (MDRD) Non-Af 33 L, BUN/Creatinine Ratio 20.8 H, Glucose 109 H, Calcium 9.2 09/18/24 22:04: B-Natriuretic Peptide 4809.7 H 09/18/24 22:38: pH 7.40, Bicarbonate Actual 22.1, Base Excess -3 L, O2 Saturation 97, ABG pCO2 35.9, ABG pO2 93, Fred Test Positive 09/19/24 03:45: WBC 7.1, RBC 4.03 L, Hgb 11.1 L, Hct 35.7 L, MCV 88.6, MCH 27.5, MCHC 31.1 L, Plt Count 181, MPV 10.7, Immature Gran % (Auto) 0.400, Neut % (Auto) 76.1 H, Lymph % (Auto) 16.0 L, Thayer % (Auto) 6.6, Eos % (Auto) 0.8, Baso % (Auto) 0.1, Absolute Neuts (auto) 5.4, Nucleated RBC % 0, Sodium 139, Potassium 5.3 H, Chloride 106, Carbon Dioxide 23.0, Anion Gap 9, BUN 42 H, Creatinine 1.92 H, Est GFR (MDRD) Af Amer 45 L, Est GFR (MDRD) Non-Af 37 L, BUN/Creatinine Ratio 21.9 H, Glucose 136 H, Calcium 8.8, Phosphorus 5.1 H, Magnesium 2.3 Rhythm: EKG: ECHO: Stress Test: Cardiac Cath: PCI: CT Surgery: Holter monitor: EPS: PPM: CXR: Chest CT Scan: Radiography Diagnostic Testing: Radiology Impression Echocardiogram 09/17/24 19:58 Interpretation Summary The estimated ejection fraction is 35 %. Stage 2 diastolic dysfunction. There is severe global hypokinesis of the left ventricle. Mildly dilated right ventricle. There is moderate biatrial dilatation. Bubble contrast study is positive for PFO. Moderate (2+) mitral valve insufficiency. Ordering Physician: Juice Raya Performed By: Vicky Ferrera, [facility] Venous Doppler Study 09/17/24 22:11 Interpretation Summary Deep veins of the bilateral lower extremities are patent and compressible segmentally. There is no evidence of bilateral lower extremity deep vein thrombosis. The bilateral great saphenous veins appear patent and compressible segmentally. Ordering Physician: Juice Raya Performed By: Tamia Cedeño Sanjuana Chest X-Ray 09/18/24 08:12 IMPRESSION: Persistent consolidation in the infrahilar region of the right lower lobe with surrounding pulmonary edema and a small pleural effusion. If this is unresolved a CT of the chest should be obtained to ensure no lymphadenopathy or occult malignancy is present Electronically Signed: Joseph Grissom MD at 10:37 EST , Lung Scan-VQ NM 09/18/24 08:40 IMPRESSION: 1. Normal 99m Tc MAA pulmonary perfusion Tc DTPA aerosol ventilation imaging survey, according to revised PIOPED interpretive criteria. 2. Small bilateral pleural effusions Perfusion-only modified PIOPED II criteria The modified PIOPED II criteria have been adapted for perfusion scintigraphy (i.e. no ventilation scan) 4,5. In this scheme, the presence of a match or mismatch is determined by comparing the perfusion scan with the chest radiograph rather than a ventilation scan. A perfusion defect without a corresponding radiographic opacity is considered mismatched. In addition, the criterion of multiple matched ventilation and perfusion defects with normal radiograph has been removed from the category of pulmonary embolism absent. Perfusion-only interpretation reduces both the specificity and the proportion of nondiagnostic readings compared to ventilation and perfusion using modified PIOPED II criteria 5. Pulmonary embolism present (high probability) two or more large mismatched segmental perfusion defects or the arithmetic equivalent of moderate and/or large defects Nondiagnostic (low or intermediate probability) all other findings not falling into the pulmonary embolism present or absent categories Pulmonary embolism absent (normal or very low probability) no perfusion defects nonsegmental perfusion defects (e.g. pleural effusion at the costophrenic angle, cardiomegaly, elevated hemidiaphragm, hilar enlargement, linear atelectasis), without other perfusion defects in either lung perfusion defects smaller than corresponding chest radiographic opacity one to three small subsegmental perfusion defects solitary matched defect in a single segment in the middle or upper lung zone stripe sign (a stripe of perfusion peripheral to a defect, best seen on tangential view) large pleural effusion (occupying one-third or more of the pleural cavity), without other perfusion defects in either lung Electronically Signed: Joseph Grissom MD at 10:24 EST , Chest X-Ray 09/18/24 15:34 IMPRESSION: No significant change since earlier today. Electronically Signed: Marcelo Vargas MD at 16:30 EST , Brain CT 09/18/24 16:30 IMPRESSION: 1. Chronic ischemic and involutional changes of the brain. Electronically Signed: Joseph Grissom MD at 15:57 EST , Chest X-Ray 09/18/24 21:58 IMPRESSION: undefined
[2024-09-19] MEDS: Furosemide 40 MG/4 ML Vial IV ×2 (08:51→18:37)
--- NOTE | 2024-09-19 08:56 | CT_ITS ---
STUDY: CTA CHEST REASON FOR EXAM: Male, 69 years old. Hypoxemia RADIATION DOSAGE (If Supplied By Facility): CTDIvol = ( 12.94 ) mGy, DLP = ( 361.95 ) mGycm TECHNIQUE: The examination was performed with the intravenous administration of IV 100mL Isovue-370. Post-processing of the angiographic images was performed, with multiplanar reformation and 3D reconstruction. Individualized dose optimization techniques were used for this CT. COMPARISON: Comparison made with prior chest radiograph dated September 18, 2024. FINDINGS: Normal enhancement of the main pulmonary artery and right and left pulmonary arteries. Normal enhancement of the bilateral peripheral pulmonary arteries. There is no demonstrated pulmonary embolism. Normal thoracic aorta and visualized great vessels. There is no demonstrated aortic dissection. There are calcifications of the coronary arteries. Normal mediastinum. Normal hilar regions. Normal visualized trachea and bronchi. Large bilateral pleural effusions right greater than left with bibasilar dependent compressive atelectasis. Normal chest wall structures. Normal osseous structures. Normal visualized upper abdomen. CT/CTA Chest W/WO Contrast IMPRESSION: No evidence of pulmonary embolism. Large bilateral pleural effusions right greater than left with bibasilar compressive atelectasis. Coronary artery calcification. Electronically Signed: Robert Campos MD at 10:03 [facility] ,
[2024-09-19] MEDS: Etomidate 20 MG/10 ML Vial 10 MG IV (09:40)
[2024-09-19] MEDS: Rocuronium Bromide 50 MG/5 ML Vial IV (09:40)
--- NOTE | 2024-09-19 09:46 | RAD_ITS ---
STUDY: X-RAY CHEST REASON FOR EXAM: Male, 69 years old. intubation #1 TECHNIQUE: Single AP portable view of the chest. COMPARISON: Comparison is made with prior study September 18, 2024. FINDINGS: An endotracheal tube is in situ. The tip is at the origin of the right mainstem bronchus. This should be pulled back approximately 2 cm. An orogastric tube is seen with the tip below the left hemidiaphragm. Lateral pleural effusions with bibasilar atelectasis and/or infiltrates worse on the right side. There is mild cardiac enlargement. Normal mediastinum and carissa. Normal visualized pulmonary arteries. There is atherosclerotic tortuosity of the aortic arch and descending thoracic aorta. There are diffuse degenerative changes of the visualized thoracic spine. Normal visualized ribs, clavicles, and shoulders. There is no demonstrated abnormality of the visualized soft tissue structures of the upper abdomen. RAD/Chest 1 View (Portable) IMPRESSION: The tip of the endotracheal tube is at the origin of the right mainstem bronchus. It should be pulled back 2 cm. Bilateral pleural effusions right greater than left with bibasilar atelectasis and/or infiltrates. Electronically Signed: Robert Campos MD at 10:21 [facility] ,
--- NOTE | 2024-09-19 09:54 | EX.ED.CRITCA ---
HPI History of Present Illness Chief Complaint: Edema Detail of Chief Complaint: CODE BLUE from CAT scan Informant: other (Patient's nurse informing that he was getting a CTA to evaluate for PE. He had a cardiopulmonary arrest) Limited: other Onset/Context/Timing Onset: Hours Context: Sudden Onset Timing: Continuous Quality: Cardiopulmonary arrest CPR in progress Location: Radiology suite Worsened by: Unknown Relieved by: Nothing Narrative Narrative: Patient is a 69-year-old male. He was seen earlier this week. He refused admission. He returned because of increased shortness of breath and stated he was ready for admission. He had a cardiopulmonary arrest yesterday. He was evaluated by cardiology. Concern was this was a PE. His images from prior days revealed bilateral pleural effusion. He did have a CTA which was reviewed by Dr. Nicholas Somers and revealed no evidence of PE. When patient arrived CPR was in progress. [facility] Medical History History of COVID-19 Diabetes Home Medications ?Medication ?Instructions ?Recorded ?Last Taken ?Type furosemide 40 mg tablet 40 mg PO DAILY 7 days #7 tabs 09/16/24 09/17/24 Rx aspirin 81 mg tablet,delayed 81 mg PO DAILY 09/17/24 09/17/24 History release Allergy/AdvReac Type Severity Reaction Status Date / Time No Known Allergies Allergy Verified 09/17/24 16:53 Surgical History Hx of thumb surgery Social History Smoking Status: Former smoker ROS ROS ED Review of Systems ROS Unobtainable: due to mental status EXAM Physical Exam Const Vital Signs: CPR in progress Positive well developed and cachectic General Appearance ED: well developed, cachectic and pallor Nutritional Appearance: cachectic HEENT normocephalic and atraumatic Eyes Eyes Narrative: Pupils are 2 mm. Neck full ROM, No supple and no JVD Resp Resp Narrative: Breath sounds noted with bag valve ventilation. Cardio Cardio Narrative: Sinus bradycardia with narrow complexes on the monitor. No palpable pulses. GI non-tender and non-distended Neuro Neuro Narrative: GCS 3. Skin General Skin Exam: pallor; Negative for jaundice Lesions: no lesions Rashes: no rashes MDM MDM MDM Narrative Medical decision making narrative: 1. CPR by nursing staff 2. Bag valve ventilation by respiratory therapist and me 3. Treatment for pulseless electrical activity and bradycardia, see code sheet for doses and timing of medication. 4. Orotracheal intubation by me after receiving 10 mg of etomidate and 50 mg rocuronium. During CPR he began to move. He still had no pulses that were palpable. 5. Orotracheal tube was placed by me 6. Critical care time 10 minutes Patient care was transferred back to telecommunications repairer and hospitalist who were caring for patient in house. Rhythm Strip Rhythm Strip: Sinus Rhythm Rate: 55 Procedures Other Procedures Procedure(s): 1. Orotracheal intubation 7.5 endotracheal tube. There is appropriate color change. This was performed after patient received 10 mg of etomidate and 50 mg of rocuronium 2. Oral gastric tube placed per me 3. [place] placed per nursing staff Critical Care Time Critical Care Time: Yes Critical care time (excluding procedures): 30-74 minutes (10), Including time spent: (History, physical, documentation, review of ER visits and hospitalist note, treatment for PEA), Discussing w/Consultants, Arranging Admission or Transfer and Performing Direct Patient Care at Bedside Discharge Plan Dx/Rx/DC Orders Clinical Impression: Cardiopulmonary arrest with successful resuscitation, Congestive heart failure, Pulseless electrical activity, Sinus bradycardia, Acute hypotension, Bilateral pleural effusion Disposition Disposition: [facility] Discharge Date/Time: 09/17/24 21:05
--- NOTE | 2024-09-19 09:55 | RAD_ITS ---
STUDY: X-RAY CHEST REASON FOR EXAM: Male, 69 years old. ET TUBE #2 TECHNIQUE: Single AP portable view of the chest. COMPARISON: Comparison is made with prior study done earlier in the day. FINDINGS: The tip of the endotracheal tube is at 2.3 cm proximal to the rafia. The remainder of the examination is unchanged. RAD/Chest 1 View (Portable) IMPRESSION: The tip of the endotracheal tube is now at 2.3 cm proximal to the rafia. The remainder of the examination is unchanged. Electronically Signed: Robert Campos MD at 10:22 EST ,
--- NOTE | 2024-09-19 10:02 | US_ITS ---
PROCEDURE: ULTRASOUND GUIDED THORACENTESIS. DATE: September 19, 2024.. INDICATION: Male, 69 years old. Right pleural effusion PHYSICIAN: Robert Campos M.D. PROCEDURE: The risks, benefits, and alternatives to the procedure were explained to the right. The specific risks of bleeding, infection, and pneumothorax requiring chest tube insertion were discussed and accepted. Written informed consent was obtained. Ultrasonographic evaluation of the right lower pleural space was carried out. An adequate pocket was identified. The patient was placed in the sitting, upright position. The overlying skin was prepped and draped in sterile fashion. 1% lidocaine was administered subcutaneously for local anesthesia. Under ultrasound guidance, a 5 [place]ian thoracentesis needle/catheter system was advanced into the right posterior lower pleural fluid collection. Approximately 1170 mL of tiesha-colored fluid was drained. The catheter was removed, and a sterile dressing was applied. A specimen was collected and sent to the laboratory for analysis, as requested by the referring clinician. The patient tolerated the procedure well. A chest x-ray was ordered. US/Thoracentesis W US IMPRESSION: Ultrasound-guided right thoracentesis. Electronically Signed: Robert Campos MD at 9:40 EST ,
--- NOTE | 2024-09-19 10:15 | CON.PCM.CC_ITS ---
Assessment & Plan Assessment/Plan (1) Acute hypoxemic respiratory failure: (2) Bilateral pleural effusion: (3) Cardiopulmonary arrest with successful resuscitation: PLAN: Plan RECOMMENDATIONS: 1. Continue assist-control mode mechanical ventilation. Wean FiO2 and PEEP for saturations greater than 90%. 2. Proceed with ultrasound-guided thoracentesis. Pleural fluid to be sent for analysis. 3. Continue attempts at diuresis as tolerated by hemodynamics and renal function. 4. Continue empiric antibiotics. 5. Propofol and fentanyl for sedation. 6. Check RSV, influenza and COVID PCR 7. Initiate appropriate ICU prophylaxis. 8. Obtain follow-up ABG and sputum culture. IMPRESSIONS: 1. Acute hypoxemic respiratory failure status post PEA cardiac arrest x 2 Clinical concern for underlying decompensated heart failure is main precipitating etiology. The patient has large bilateral pleural effusions, which I suspect are transudative in nature and related to the patient's CHF. Aside from continuing goal-directed medical therapy per cardiology recommendations, I would proceed with ultrasound-guided thoracentesis to help improve the patient's overall respiratory status. In the interim, continue assist-control mode mechanical ventilation and wean FiO2 and PEEP to maintain saturations at or above 90%. Continue empiric antimicrobials. Fentanyl and propofol were utilized for sedation. 2. Acute decompensated heart failure Continue medical management per cardiology recommendations. 3. Acute kidney injury Unclear etiology, although suspect may be secondary to cardiorenal disease. Nephrology consultation was placed with renal ultrasound pending. 4. History of tobacco dependency/hypertension/diabetes mellitus Complicates care, management, recovery and prognosis. Continue to hold home medications for now. TIME: 55 minutes of critical care time, independent of procedures, was spent addressing the patient's acute hypoxemic respiratory failure, PEA cardiac arrest, acute decompensated heart failure, acute kidney injury, review of all data and collaboration with the care team. HPI Consult Data Date of Consult: 09/19/24 HPI Narrative Reason for Consultation: Acute hypoxemic respiratory failure, status post PEA cardiac arrest x 2 HPI Narrative: The patient is a 69-year-old male, with a history as outlined below, who presented to the emergency department on September 17 with progressive shortness of breath and lower extremity edema. The patient has a known history of hypertension, diabetes mellitus and congestive heart failure. The patient was actually seen in the emergency department on September 16 under similar circumstances, but ultimately signed out AGAINST MEDICAL ADVICE after hospital admission was recommended. On presentation to the emergency department, the patient was documented to be afebrile and hemodynamically stable. He was maintaining appropriate oxygen saturations on room air. Laboratory evaluation revealed a normal white blood cell count. Chemistry profile was notable for a creatinine of 1.76 and normal lactate. Troponin was elevated at 140 [place] 3794. A CT scan of the abdomen and pelvis was obtained due to urinary retention which demonstrated large bilateral pleural effusions and compressive atelectasis. The patient was ultimately admitted to the hospital where he was placed on goal-directed medical therapy for congestive heart failure. Surface echocardiogram completed on September 18 demonstrated severe global hypokinesis of the LV with an ejection fraction of 35% and stage II diastolic dysfunction. Pulmonary artery systolic pressure was estimated to be 45 to 50 mmHg. Lower extremity Doppler study was negative for the presence of DVT. On the afternoon of September 18, a CODE BLUE was called after the patient developed suspected vasovagal syncope while using the restroom and sustained PEA cardiac arrest with ROSC achieved after 2 rounds of epinephrine. The patient was alert and appropriately interactive after that code. He did not require intubation. Nevertheless, he was transferred to the medical intensive care unit for further management. Overnight, the patient did develop worsening hypoxemia. Therefore, upon my evaluation this morning, a CTA chest was ordered to rule out PE. Shortly after completion of the CTA chest, the patient once again developed bradycardia and went into PEA arrest. ACLS was again initiated with 1 round of epinephrine and the patient being intubated. The CTA chest demonstrated no pulmonary embolism, but again confirmed the presence of large bilateral pleural effusions, right greater than left with associated compressive atelectasis. The patient returned to the ICU for ongoing care. [facility] Medical History History of COVID-19 Diabetes Home Medications ?Medication ?Instructions ?Recorded ?Last Taken ?Type furosemide 40 mg tablet 40 mg PO DAILY 7 days #7 tabs 09/16/24 09/17/24 Rx aspirin 81 mg tablet,delayed 81 mg PO DAILY 09/17/24 09/17/24 History release Allergy/AdvReac Type Severity Reaction Status Date / Time No Known Allergies Allergy Verified 09/17/24 16:53 Surgical History Hx of thumb surgery Social History Smoking Status: Former smoker ROS Review of Systems ROS Unobtainable: due to endotracheal tube and due to mental status Physical Exam Const Constitutional Narrative: Currently intubated, sedated and mechanically ventilated. No ventilator dyssynchrony noted. General Appearance: ill appearing and patient mechanically ventilated HEENT normocephalic and head/scalp atraumatic Mouth: endotracheal tube in place and OG tube in place Eyes PERRL, EOMs intact bilaterally and conjunctivae normal Neck supple General: trachea midline Chest inspection of chest normal Resp Auscultation: diminished lung sounds Cardio regular rate and regular rhythm GI normal to inspection, nondistended, normoactive bowel sounds Extremity General Extremity: edema; Negative for clubbing Skin no rashes or lesions noted Neuro Sensorium / Orientation: sedated on vent Lab / Micro Data 09/19/24 12:15 09/19/24 12:15 Labs: Laboratory Results - last 24 hr 09/18/24 04:15: B-Natriuretic Peptide 3794.1 H 09/18/24 11:32: POC Glucose 107 H 09/18/24 14:34: POC Glucose 309 H 09/18/24 16:40: WBC 6.9, RBC 4.40 L, Hgb 12.3 L, Hct 39.3 L, MCV 89.3, MCH 28.0, MCHC 31.3 L, RDW Std Deviation 49.3 H, RDW Coeff of Agus 15.1 H, Plt Count 162, MPV 10.4, Immature Gran % (Auto) 0.700, Neut % (Auto) 84.4 H, Lymph % (Auto) 9.8 L, [place] % (Auto) 4.1, Eos % (Auto) 0.6, Baso % (Auto) 0.4, Absolute Neuts (auto) 5.8, Absolute Lymphs (auto) 0.67 L, Nucleated RBC % 0, Sodium 137, Potassium 6.8 H*, Chloride 106, Carbon Dioxide 24.0, Anion Gap 7, BUN 41 H, Creatinine 1.94 H, Estim Creat Clear Calc 33.19, Est GFR (MDRD) Af Amer 44 L, Est GFR (MDRD) Non-Af 37 L, BUN/Creatinine Ratio 21.1 H, Glucose 269 H, Lactic Acid 1.5, Calcium 8.3 L , Magnesium 2.2, Total Bilirubin 0.60, AST 33, ALT 27, Alkaline Phosphatase 123 H, Troponin I High Sens 140 H*, Total Protein 6.0 L, Albumin 2.7 L, Globulin 3.3, Albumin/Globulin Ratio 0.8 L 09/18/24 21:15: Sodium 142, Potassium 5.0, Chloride 109 H, Carbon Dioxide 26.0, Anion Gap 7, BUN 44 H, Creatinine 2.12 H, Estim Creat Clear Calc 30.37, Est GFR (MDRD) Af Amer 40 L, Est GFR (MDRD) Non-Af 33 L, BUN/Creatinine Ratio 20.8 H, G lucose 109 H, Calcium 9.2, Troponin I High Sens 286 H* 09/18/24 22:04: B-Natriuretic Peptide 4809.7 H 09/19/24 03:45: WBC 7.1, RBC 4.03 L, Hgb 11.1 L, Hct 35.7 L, MCV 88.6, MCH 27.5, MCHC 31.1 L, RDW Std Deviation 49.5 H, RDW Coeff of Agus 15.3 H, Plt Count 181, MPV 10.7, Immature Gran % (Auto) 0.400, Neut % (Auto) 76.1 H, Lymph % (Auto) 16.0 L, [place] % (Auto) 6.6, Eos % (Auto) 0.8, Baso % (Auto) 0.1, Absolute Neuts (auto) 5.4, Absolute Lymphs (auto) 1.14, Nucleated RBC % 0, Sodium 139, P otassium 5.3 H, Chloride 106, Carbon Dioxide 23.0, Anion Gap 9, BUN 42 H, C reatinine 1.92 H, Estim Creat Clear Calc 33.54, Est GFR (MDRD) Af Amer 45 L, Est GFR (MDRD) Non-Af 37 L, BUN/Creatinine Ratio 21.9 H, Glucose 136 H, Calcium 8.8, Phosphorus 5.1 H, Magnesium 2.3 Micro: Microbiology 09/18/24 23:38 Stool Clostridioides difficile (PCR) - Final 09/18/24 17:33 Mucosa - Nasopharyngeal Respiratory Panel (PCR) - Final ABG Data ABG results: ABG 09/18/24 22:38 Specimen Type ART Sample Site L Radial pH 7.40 Bicarbonate Actual 22.1 Total CO2 23 Base Excess -3 L O2 Saturation 97 O2 % 100.0 ABG pCO2 35.9 ABG pO2 93 Fred Test Positive O2 Delivery Device NRB Vent Mode Not entered Rhythm Strip Rhythm Strip: Sinus Rhythm Rate: 55 Imaging Radiology Impression Echocardiogram 09/17/24 19:58 Interpretation Summary The estimated ejection fraction is 35 %. Stage 2 diastolic dysfunction. There is severe global hypokinesis of the left ventricle. Mildly dilated right ventricle. There is moderate biatrial dilatation. Bubble contrast study is positive for PFO. Moderate (2+) mitral valve insufficiency. Ordering Physician: Juice Raya Performed By: Vicky Ferrera RDCS Venous Doppler Study 09/17/24 22:11 Interpretation Summary Deep veins of the bilateral lower extremities are patent and compressible segmentally. There is no evidence of bilateral lower extremity deep vein thrombosis. The bilateral great saphenous veins appear patent and compressible segmentally. Ordering Physician: Juice Raya Performed By: Tamia Cedeño RVT Chest X-Ray 09/18/24 08:12 IMPRESSION: Persistent consolidation in the infrahilar region of the right lower lobe with surrounding pulmonary edema and a small pleural effusion. If this is unresolved a CT of the chest should be obtained to ensure no lymphadenopathy or occult malignancy is present Electronically Signed: Joseph Grissom MD at 10:37 EST , Lung Scan-VQ NM 09/18/24 08:40 IMPRESSION: 1. Normal 99m Tc MAA pulmonary perfusion Tc DTPA aerosol ventilation imaging survey, according to revised PIOPED interpretive criteria. 2. Small bilateral pleural effusions Perfusion-only modified PIOPED II criteria The modified PIOPED II criteria have been adapted for perfusion scintigraphy (i.e. no ventilation scan) 4,5. In this scheme, the presence of a match or mismatch is determined by comparing the perfusion scan with the chest radiograph rather than a ventilation scan. A perfusion defect without a corresponding radiographic opacity is considered mismatched. In addition, the criterion of multiple matched ventilation and perfusion defects with normal radiograph has been removed from the category of pulmonary embolism absent. Perfusion-only interpretation reduces both the specificity and the proportion of nondiagnostic readings compared to ventilation and perfusion using modified PIOPED II criteria 5. Pulmonary embolism present (high probability) two or more large mismatched segmental perfusion defects or the arithmetic equivalent of moderate and/or large defects Nondiagnostic (low or intermediate probability) all other findings not falling into the pulmonary embolism present or absent categories Pulmonary embolism absent (normal or very low probability) no perfusion defects nonsegmental perfusion defects (e.g. pleural effusion at the costophrenic angle, cardiomegaly, elevated hemidiaphragm, hilar enlargement, linear atelectasis), without other perfusion defects in either lung perfusion defects smaller than corresponding chest radiographic opacity one to three small subsegmental perfusion defects solitary matched defect in a single segment in the middle or upper lung zone stripe sign (a stripe of perfusion peripheral to a defect, best seen on tangential view) large pleural effusion (occupying one-third or more of the pleural cavity), without other perfusion defects in either lung Electronically Signed: Joseph Grissom MD at 10:24 EST , Chest X-Ray 09/18/24 15:34 IMPRESSION: No significant change since earlier today. Electronically Signed: Marcelo Vargas MD at 16:30 EST , Brain CT 09/18/24 16:30 IMPRESSION: 1. Chronic ischemic and involutional changes of the brain. Electronically Signed: Joseph Grissom MD at 15:57 EST , Chest X-Ray 09/18/24 21:58 IMPRESSION: undefined Chest CTA 09/19/24 08:56 IMPRESSION: No evidence of pulmonary embolism. Large bilateral pleural effusions right greater than left with bibasilar compressive atelectasis. Coronary artery calcification. Electronically Signed: Robert Campos MD at 10:03 EST , Charges/Coding Procedures Hospitalists Procedures: 45028 Critical Care 1st Hr
[2024-09-19 10:50] LABS: Allen Test Positive; Base Excess -2 mmol/L (-2 to +2); Bicarbonate 22.6 mmol/L (22-26); Blood Gas Specimen Type ART; Mode AC; O2 Delivery Device Adult Vent; PEEP 5; PO2 70 mmHG (75-100); RR 16; SITE L Radial; SO2 95 % (95-99); Total Carbon Dioxide 24 mmol/L; pCO2 33.8 mmHg (35-45); pH 7.43 (7.35-7.45)
[2024-09-19 10:56] LABS: ALB/GLOB Ratio 0.8 RATIO (0.9-2.4); Globulin 3.1 g/dL (2.2-4.2); LDH 220 U/L (87-241); Protein, Total 5.7 g/dL (6.4-8.2)
[2024-09-19] MEDS: Propofol 10MG/Ml 1,000 MG/100 ML Bottle 3.9 MG CONT INF ×2 (11:06→23:00)
[2024-09-19] MEDS: fentaNYL drip 100 ML 20 MCG CONT INF (11:07)
[2024-09-19] MEDS: Etomidate 20 MG/10 ML Vial IV (11:30)
--- NOTE | 2024-09-19 11:44 | RAD_ITS ---
STUDY: X-RAY CHEST REASON FOR EXAM: Male, 69 years old. ET tube replacement TECHNIQUE: Single AP portable view of the chest. COMPARISON: Comparison is made with prior study done earlier in the day. FINDINGS: The tip of the endotracheal tube is at 3.2 cm proximal to the rafia. The remainder of examination is unchanged. RAD/Chest 1 View (Portable) IMPRESSION: The tip of the endotracheal tube is at 3.2 cm proximal to the rafia. The remainder of the examination is unchanged. Electronically Signed: Robert Campos MD at 12:07 EST ,
--- NOTE | 2024-09-19 11:44 | NURSING ---
Pt's brother Carroll at bedside speaking to the doctors.
--- NOTE | 2024-09-19 11:56 | CASEMGMT ---
Social Work SW responded to Code Blue. Phone call placed to pt's brother Carroll who states he is in the parking lot and will be in shortly. SW met Carroll and Carroll's son in the waiting area. SW provided updated and support and updated RN that brother had arrived. RN out to meet with brother and take Carroll to pt's room to speak with physicians. SW remains available for family needs. MATTEO Jeffers
[2024-09-19 12:26] LABS: Absolute Lymphocyte Count 1.02 X10^3/uL (0.83-4.51); Absolute Neutrophil Count 7.7 X10^3/uL (2.0-7.7); Basophil# 0.03 X10^3/uL; Basophil% 0.3 % (0-1); Eosinophil# 0.08 X10^3/uL; Eosinophils% 0.9 % (0-5); Hematocrit 36.2 % (40-54); Hemoglobin 11.5 g/dL (13.0-16.5); Lymphocyte # 1.02 X10^3/ul (0.83-4.51); Lymphocyte % 10.9 % (19-41); Mean Corp Hgb Conc 31.8 g/dL (32-36); Mean Corpuscular Hgb 28.2 pg (27.0-32.0); Mean Corpuscular Volume 88.7 fL (80-94); Mean Platelet Vol. 10.6 fl (6.2-12.0); Monocyte# 0.49 X10^3/uL; Monocyte% 5.2 % (0-10); NRBC Flagged by Analyzer 0 % (0-5); Neutrophil # 7.67 X10^3/uL (2.7-7.7); Neutrophil % 82.1 % (47-70); Platelet Count 182 K/mm3 (150-450); RBC Distribution Width CV 15.5 % (11.6-14.6); RBC Distribution Width SD 49.4 fl (35.1-43.9); Red Blood Count 4.08 M/mm3 (4.6-6.2); White Blood Count 9.4 K/mm3 (4.4-11.0)
--- NOTE | 2024-09-19 12:30 | FLU_PTH ---
PATIENT: ZOE MENDEZ LOC: [facility] U#:[id number] AGE/SX: 69/M ROOM: [facility] RE09/17/[address]: Dr. Pastor Holder DO : 1955 BED: 1 DIS: 10/02/2024 SPEC #: [id number] RECD: 09/19/24 13:19 STATUS: ALIA REQ #: [id number] JONA: 09/19/24 12:[address]: Bhavin Peterson DEPT: CYTOLOGY RECD BY: Slime Alejo ENTERED: 09/19/24 13:48 SP TYPE: Fluid OTHR DR: MD Dr. Avery Wiggins MD Dr. Bruce Arthur, MD Dr. Derek Brown, DO Dr. David de Lorenzo, DO Dr. David P Myers, MD Dr. Edward Matheis, MD Dr. Gautam Baskaran, MD Dr. Yordanos Habtegebriel, MD Dr. Hemant Dand, MD Dr. Jayaprakas Dasari, MD Dr. Jose Ochoa, MD Dr. Justin Wong, MD Dr. Kimber Foust, MD Dr. Lamia Aljundi, MD Dr. Michael Hughes, MD Dr. Pritam Ghosh, MD Dr. Pavan Irukulla, MD Dr. Saad Farooqi, MD Dr. Sukhdeep Dhesi, DO Dr. Sujoy Gill, MD Dr. Timothy Fernstrom, MD Dr. Chip Jackson Dr., MD No Primary Care Phys Tissues: Pleural fluid, NOS Procedures: Special Stain Group II Surgery Specimen Level IV Cytospin Fluid HEADER OPERATION: Right pleural effusion / thoracentesis PRE-OP DIAGNOSIS: Pleural effusion TISSUE SUBMITTED: Thoracentesis fluid DIAGNOSIS CYTOLOGY Thoracentesis fluid for cytology (cytospin and cellblock): Negative for malignant cells. AMArmando 09/20/2024 CYTOLOGY STUDY Slides are reviewed. CYTOLOGY GROSS Received is 80 ml of yellow-cloudy fluid labeled with the patient's name and and designated per the requisition as Thoracentesis fluid. Submitted for cytology preparation including cell block. 09/19/2024 TC:5 CPT: 88556,49806
[2024-09-19 12:43] LABS: ALB/GLOB Ratio 0.8 RATIO (0.9-2.4); AST(SGOT) 79 U/L (15-37); Alanine Aminotransfer ALT/SGPT 50 U/L (16-61); Albumin, Serum 2.6 g/dL (3.2-5.0); Alkaline Phosphatase 133 U/L (45-117); Anion Gap 9 (5-15); BUN 45 mg/dL (7-18); BUN/Creat Ratio 22.2 RATIO (10-20); Calcium,Total 8.5 mg/dL (8.5-10.1); Chloride 106 mmol/L (98-107); Creatinine, Serum 2.03 mg/dL (0.70-1.30); EST Glomerular Filtration Rate 35 mL/min (>60); Est Glom Filt Rate - Afr Amer 42 mL/min (>60); Estimated Creatinine Clearance 31.67 ml/min; Globulin 3.1 g/dL (2.2-4.2); Glucose 189 mg/dL (74-106); Magnesium 2.1 mg/dL (1.6-2.6); Phosphorus 5.2 mg/dL (2.5-4.9); Potassium 4.3 mmol/L (3.5-5.1); Protein, Total 5.7 g/dL (6.4-8.2); Sodium Level 139 mmol/L (136-145)
[2024-09-19] MEDS: Lidocaine 2% (20 ml mdv) 20 ML Vial INFILT (12:54)
--- NOTE | 2024-09-19 13:15 | RAD_ITS ---
STUDY: X-RAY CHEST REASON FOR EXAM: Male, 69 years old. Post thoracentesis TECHNIQUE: AP inspiration and expiration views. COMPARISON: Comparison is made with prior study done earlier today. FINDINGS: EKG electrodes are seen. The patient is status post right thoracentesis. There is evidence of a 5-10% right pneumothorax. The right lung is clear. Persistent left pleural-parenchymal changes. The tip of the endotracheal tube is at 4.6 cm proximal to the rafia. RAD/Chest Insp/Exp 2 View IMPRESSION: Status post right thoracentesis. 5-10% right pneumothorax. The right pleural effusion has resolved. Residual pleural parenchymal changes at the left lung base. Electronically Signed: Robert Campos MD at 13:28 EST ,
--- NOTE | 2024-09-19 13:16 | US_ITS ---
EXAM: US RETROPERITONEAL LIMITED, RENAL CLINICAL INDICATION: JAMES TECHNIQUE: Limited grayscale and color Doppler sonographic evaluation of the retroperitoneum was performed. COMPARISON: No relevant prior studies available. FINDINGS: RIGHT KIDNEY: Right kidney measures 12.8 x 5.2 x 6.2 cm. The right renal cortex measures 2.1 cm. There is a trace amount of perinephric fluid on the right kidney. No hydronephrosis. No shadowing calculus. LEFT KIDNEY: The left kidney is been removed. No hydronephrosis. No shadowing calculus. No perinephric collection is demonstrated. US/Kidney and Bladder IMPRESSION: Trace amount of perinephric fluid around the right kidney. There is no hydronephrosis. The patient status post left nephrectomy. Electronically Signed: Adalid Holt MD at 16:52 EST ,
[2024-09-19 13:21] LABS: CPK Total, Creatine Kinase 154 U/L (39-308); Triglycerides 171 mg/dL
--- NOTE | 2024-09-19 13:21 | CASEMGMT ---
As of this time, the pt has gone through 3 separate CODE BLUE emergencies. SW has been in communication with the family. RN CM Assessment deferred at this time. Will continue to follow.
[2024-09-19 13:34] LABS: Cytology, Body Fluid / CSF SEE PATHOLOGY REPORT
--- NOTE | 2024-09-19 13:37 | RAD_ITS ---
STUDY: X-RAY CHEST REASON FOR EXAM: Male, 69 years old. PTX f/u TECHNIQUE: Single AP portable view of the chest. COMPARISON: Comparison is made with prior study done earlier today. FINDINGS: A small caliber chest tube has been placed with the tip in the right lung apex. The previously seen pneumothorax has resolved. Residual pleural parenchymal changes at the left lung base. The right lung is clear. RAD/Chest 1 View (Portable) IMPRESSION: Status post placement of a small-caliber right-sided chest tube with the tip at the right lung apex. No evidence of pneumothorax at this time. Electronically Signed: Robert Campos MD at 14:17 EST ,
[2024-09-19 13:50] LABS: Body Fluid Mononuclear WBC # 0.087 10^3/uL; Body Fluid Mononuclear WBC % 81.3 %; Body Fluid Polynuclear WBC % 18.7 %; Body Fluid Total Cells Counted 0.119 10^3/ul; White Blood Count/Body Fluid 0.107 10^3/uL
--- NOTE | 2024-09-19 13:51 | PCM.OPRPT ---
Problems Associated Problem List Diagnoses (1) Bilateral pleural effusion: Operative Report (Standard) Operative Information Surgery/Procedure Performed: Ultrasound-guided thoracentesis Surgeon: Heather Castillo NP Date of Procedure: 09/19/24 Procedure Start Time: 12:30 Procedure Stop Time: 13:05 Pre-Operative Diagnosis: Bilateral pleural effusions Post-Operative Diagnosis: Bilateral pleural effusions Select all DRAINS/GRAFTS/IMPLANTS that apply: None Type of Anesthesia: Local Estimated Blood Loss: 0 Specimen collected: Yes Description of specimen(s) removed: 100 cc sent to lab Description of surgery: PROCEDURE: Ultrasound Guided Thoracentesis ORDERING PROVIDER: Dr. Nicholas Somers INDICATION: Male, 69 years old. Bilateral pleural effusions. PROVIDER: Heather Castillo AUTOMOBILE PARKER PROCEDURE: The risks, benefits, and alternatives to the procedure were explained to the patient's brother. The specific risks of bleeding, infection, and pneumothorax requiring chest tube insertion were discussed and accepted. Written informed consent was obtained. The patient was placed in the sitting, upright position. Ultrasonographic evaluation of the bilateral lower pleural spaces was carried out. An adequate pocket was identified in the right lower lobe. The overlying skin was prepped with chlorhexidine and draped in sterile fashion. 2 % lidocaine was administered subcutaneously for local anesthesia. Under ultrasound guidance, a 5-Haitian thoracentesis needle/catheter system was advanced into the right lower lobe posterior lower pleural fluid collection. 1170 ml of clear pale yellow colored fluid was drained. The catheter was removed, and a sterile dressing was applied. The patient tolerated the procedure well. A chest x-ray was ordered. IMPRESSION: Successful ultrasound guided thoracentesis of right lower lobe pleural effusion. Surgical Findings: Noncomplicated Glove Turner And Former Automatic marketing compliance manager: No Complications Complications: No Procedures Radiology Radiology US Procedures: 30932 Thoracentesis
--- NOTE | 2024-09-19 13:56 | PCM.PN.BLA ---
Progress Note The patient underwent successful ultrasound-guided thoracentesis this afternoon at the bedside by radiology. On post procedure chest x-ray, the patient was noted to have a right-sided pneumothorax. Given that the patient was being mechanically ventilated, the decision was made to place a small bore chest tube to aid in resolution of the pneumothorax. Procedure: Chest tube Date: September 19, 2024 Time: 1330 Indication: Pneumothorax A time-out was completed verifying correct patient, procedure, site, positioning, and special equipment if applicable. The patient was positioned appropriately for chest tube placement. The patient?s right chest was prepped and draped in sterile fashion. 1%Lidocaine?was used to anesthetize the surrounding skin area. A skin incision was made in the mid-axillary?line at the?inframammarycrease. An 8 Mongolian thoracostomy?tube was inserted and positioned appropriately. The chest tube was sutured securely to the skin and a sterile dressing applied. A?pleurevac?was attached to the chest tube and a chest x-ray obtained. The patient tolerated the procedure well and there were no complications. Procedures Pulmonary CF Procedures 30xxx-32xxx: [id number] Insertion of chest tube
[2024-09-19 14:01] LABS: Auto B Fluid Analyzer BKGD Ct COUNTS W/IN LIMITS (W/IN LIMITS); Source- Body Fluid THORACENTESIS
[2024-09-19 14:02] LABS: Appearance/Body Fluid CLEAR; Color/Body Fluid YELLOW
[2024-09-19 14:05] LABS: Red Cell Count/Body Fluid 785 /mm3
[2024-09-19 14:14] LABS: Glucose, Body Fluid 164 mg/dL (40-70); LDH,Body Fluid 73 Units/L (Not Establ.); Protein, Body Fluid 1.4 g/dL (Not Establ.)
--- NOTE | 2024-09-19 14:23 | PN.HOSP_ITS ---
Reason for Visit Reason for Visit: Diagnoses Hyperkalemia (09/17/24) Cardiac arrest, cause unspecified (09/17/24) Heart failure, unspecified (09/17/24) Pleural effusion, not elsewhere classified (09/17/24) Acute respiratory failure with hypoxia (09/17/24) Acute kidney failure, unspecified (09/17/24) Patent foramen ovale (09/17/24) Other forms of dyspnea (09/17/24) Patient's noncompliance with other medical treatment and regimen due to unspecified reason (09/17/24) Objective Data Objective Data Vital Signs: Vital Signs Temp Pulse Resp BP Pulse Ox O2 Del Method O2 Flow Rate 97.9 F 117 H 16 84/43 L 94 Nasal Cannula 4 09/19/24 08:00 09/19/24 11:27 09/19/24 11:27 09/19/24 11:27 09/19/24 10:21 09/19/24 08:00 09/19/24 08:00 FiO2 21 09/19/24 10:21 Oxygen Flow Rate (L/min) 4 Oxygen Delivery Method Nasal Cannula Weight: 143 lb 11.862 oz Body Mass Index (BMI) 22.5 Intake & Output: Intake and Output for Last 24 Hours 09/17/24 09/18/24 09/19/24 23:59 23:59 23:59 Intake Total 250 / 250 420 / 780 549.24 / 549.24 Output Total 500 / 500 2640 / 2640 Balance -250 / -250 420 / 780 -2090.76 / -2090.76 Lab / Micro Data 09/19/24 12:15 09/19/24 12:15 Labs: Laboratory Results - last 24 hr 09/18/24 14:34: POC Glucose 309 H 09/18/24 16:40: WBC 6.9, RBC 4.40 L, Hgb 12.3 L, Hct 39.3 L, MCV 89.3, MCH 28.0, MCHC 31.3 L, RDW Std Deviation 49.3 H, RDW Coeff of Gaus 15.1 H, Plt Count 162, MPV 10.4, Immature Gran % (Auto) 0.700, Neut % (Auto) 84.4 H, Lymph % (Auto) 9.8 L, Treasure % (Auto) 4.1, Eos % (Auto) 0.6, Baso % (Auto) 0.4, Absolute Neuts (auto) 5.8, Absolute Lymphs (auto) 0.67 L, Nucleated RBC % 0, Sodium 137, Potassium 6.8 H*, Chloride 106, Carbon Dioxide 24.0, Anion Gap 7, BUN 41 H, Creatinine 1.94 H, Estim Creat Clear Calc 33.19, Est GFR (MDRD) Af Amer 44 L, Est GFR (MDRD) Non-Af 37 L, BUN/Creatinine Ratio 21.1 H, Glucose 269 H, Lactic Acid 1.5, Calcium 8.3 L , Magnesium 2.2, Total Bilirubin 0.60, AST 33, ALT 27, Alkaline Phosphatase 123 H, Troponin I High Sens 140 H*, Total Protein 6.0 L, Albumin 2.7 L, Globulin 3.3, Albumin/Globulin Ratio 0.8 L 09/18/24 21:15: Sodium 142, Potassium 5.0, Chloride 109 H, Carbon Dioxide 26.0, Anion Gap 7, BUN 44 H, Creatinine 2.12 H, Estim Creat Clear Calc 30.37, Est GFR (MDRD) Af Amer 40 L, Est GFR (MDRD) Non-Af 33 L, BUN/Creatinine Ratio 20.8 H, G lucose 109 H, Calcium 9.2, Troponin I High Sens 286 H* 09/18/24 22:04: B-Natriuretic Peptide 4809.7 H 09/19/24 03:45: WBC 7.1, RBC 4.03 L, Hgb 11.1 L, Hct 35.7 L, MCV 88.6, MCH 27.5, MCHC 31.1 L, RDW Std Deviation 49.5 H, RDW Coeff of Agus 15.3 H, Plt Count 181, MPV 10.7, Immature Gran % (Auto) 0.400, Neut % (Auto) 76.1 H, Lymph % (Auto) 16.0 L, Treasure % (Auto) 6.6, Eos % (Auto) 0.8, Baso % (Auto) 0.1, Absolute Neuts (auto) 5.4, Absolute Lymphs (auto) 1.14, Nucleated RBC % 0, Sodium 139, P otassium 5.3 H, Chloride 106, Carbon Dioxide 23.0, Anion Gap 9, BUN 42 H, C reatinine 1.92 H, Estim Creat Clear Calc 33.54, Est GFR (MDRD) Af Amer 45 L, Est GFR (MDRD) Non-Af 37 L, BUN/Creatinine Ratio 21.9 H, Glucose 136 H, Calcium 8.8, Phosphorus 5.1 H, Magnesium 2.3, Lactate Dehydrogenase 220, Total Protein 5.7 L, Globulin 3.1, Albumin/Globulin Ratio 0.8 L 09/19/24 12:15: WBC 9.4, RBC 4.08 L, Hgb 11.5 L, Hct 36.2 L, MCV 88.7, MCH 28.2, MCHC 31.8 L, RDW Std Deviation 49.4 H, RDW Coeff of Agus 15.5 H, Plt Count 182, MPV 10.6, Immature Gran % (Auto) 0.600, Neut % (Auto) 82.1 H, Lymph % (Auto) 10.9 L, Treasure % (Auto) 5.2, Eos % (Auto) 0.9, Baso % (Auto) 0.3, Absolute Neuts (auto) 7.7, Absolute Lymphs (auto) 1.02, Nucleated RBC % 0, Sodium 139, Potassium 4.3, Chloride 106, Carbon Dioxide 24.0, Anion Gap 9, BUN 45 H, C reatinine 2.03 H, Estim Creat Clear Calc 31.67, Est GFR (MDRD) Af Amer 42 L, Est GFR (MDRD) Non-Af 35 L, BUN/Creatinine Ratio 22.2 H, Glucose 189 H, Calcium 8.5, Phosphorus 5.2 H, Magnesium 2.1, Total Bilirubin 0.90, AST 79 H, ALT 50, A lkaline Phosphatase 133 H, Total Creatine Kinase 154, Total Protein 5.7 L, A lbumin 2.6 L, Globulin 3.1, Albumin/Globulin Ratio 0.8 L, Triglycerides 171 09/19/24 12:30: Fluid Source THORACENTESIS, Fluid Color YELLOW, Fluid Appearance CLEAR, Fluid WBC 0.107, Fluid RBC 785, Fluid Tot Cell Count 0.119, Fld Polynuclear WBCs # 0.020, Fld Polynuclear WBCs % 18.7, Fluid Mononuclear WBCs 0.087, Fld Mononuclear WBCs % 81.3, Fl Pathologist Comment May follow, Fluid Glucose 164 H, Fluid Total Protein 1.4, Fluid LDH 73, Fluid Comment 2 SEE COMMENT Micro: Microbiology 09/19/24 13:12 Mucosa - Nasopharyngeal SARS-CoV-2, Influenza & RSV (PCR) - Final 09/18/24 23:38 Stool Clostridioides difficile (PCR) - Final 09/18/24 17:33 Mucosa - Nasopharyngeal Respiratory Panel (PCR) - Final ABG Data ABG results: ABG 09/18/24 09/19/24 22:38 10:47 Specimen Type ART ART Sample Site L Radial L Radial pH 7.40 7.43 Bicarbonate Actual 22.1 22.6 Total CO2 23 24 Base Excess -3 L -2 O2 Saturation 97 95 O2 % 100.0 35.0 ABG pCO2 35.9 33.8 L ABG pO2 93 70 L Fred Test Positive Positive Respiration Rate 16 O2 Delivery Device NRB Adult Vent Vent Mode Not entered AC Tidal Volume 450.0 POC PEEP 5 Radiography Diagnostic Testing: Radiology Impression Venous Doppler Study 09/17/24 22:11 Interpretation Summary Deep veins of the bilateral lower extremities are patent and compressible segmentally. There is no evidence of bilateral lower extremity deep vein thrombosis. The bilateral great saphenous veins appear patent and compressible segmentally. Ordering Physician: Juice Raya Performed By: Tamia Cedeño T Chest X-Ray 09/18/24 15:34 IMPRESSION: No significant change since earlier today. Electronically Signed: Marcelo Vargas MD at 16:30 EST , Brain CT 09/18/24 16:30 IMPRESSION: 1. Chronic ischemic and involutional changes of the brain. Electronically Signed: Joseph Grissom MD at 15:57 EST Reading Location ID and State: [facility] / [place] , Service support , Chest X-Ray 09/18/24 21:58 IMPRESSION: undefined Chest CTA 09/19/24 08:56 IMPRESSION: No evidence of pulmonary embolism. Large bilateral pleural effusions right greater than left with bibasilar compressive atelectasis. Coronary artery calcification. Electronically Signed: Robert Campos MD at 10:03 EST , Chest X-Ray 09/19/24 09:46 IMPRESSION: The tip of the endotracheal tube is at the origin of the right mainstem bronchus. It should be pulled back 2 cm. Bilateral pleural effusions right greater than left with bibasilar atelectasis and/or infiltrates. Electronically Signed: Robert Campos MD at 10:21 EST , Chest X-Ray 09/19/24 09:55 IMPRESSION: The tip of the endotracheal tube is now at 2.3 cm proximal to the rafia. The remainder of the examination is unchanged. Electronically Signed: Robert Campos MD at 10:22 EST , Chest X-Ray 09/19/24 11:44 IMPRESSION: The tip of the endotracheal tube is at 3.2 cm proximal to the rafia. The remainder of the examination is unchanged. Electronically Signed: Robert Campos MD at 12:07 EST , Chest X-Ray 09/19/24 13:15 IMPRESSION: Status post right thoracentesis. 5-10% right pneumothorax. The right pleural effusion has resolved. Residual pleural parenchymal changes at the left lung base. Electronically Signed: Robert Campos MD at 13:28 EST , Chest X-Ray 09/19/24 13:37 IMPRESSION: Status post placement of a small-caliber right-sided chest tube with the tip at the right lung apex. No evidence of pneumothorax at this time. Electronically Signed: Robert Campos MD at 14:17 EST , Rhythm Strip Rhythm Strip: Sinus Rhythm Rate: 55 Physical Exam Narrative Seen and examined in the morning. Had some rapid response last night too for hypoxia Patient had CODE BLUE twice 1 in the morning and then 11:15 AM. First CODE BLUE was in the CT scan suite and second in the ICU Patient was admitted for leg swelling and shortness of breath gradually worsening for 2 to 3 weeks and was in the ED a day before admission and was prescribed furosemide but did not resolve any symptoms therefore came to admission. He has dry cough for 4 to 5 days. Denies sputum production or fever. He also history of his smoking 1 PPD started in teenage and quit 18 years ago Physical exam General: Alert, Oriented x3, Cooperative and then CODE BLUE. Later he was intubated and sedated HEENT: Atraumatic, PERRLA, EOMI, Normocephalic Oral: No Gingival or Mucosal Lesions/ Ulcerations Neck: Supple, No JVD, Negative Carotid Bruits Chest wall/Lungs: Air entry diminished in bilateral lung bases. Bilateral, right more than left large pleural effusion Cardiovascular: Sinus bradycardia, Normal S1, Normal S2, No M/G/R Abdomen: Bowel Sounds Present, Soft, Non Tender, Non-Distended : No dysuria. No renal angle tenderness. No suprapubic tenderness. Extremities: 2+ pitting edema, Capillary Refill Less than 3 Seconds Skin: No rashes, No breakdown Musculoskeletal: No Tenderness to Palpation of Joints or Extremities Neurological: Cranial nerves II-XII grossly intact, DTR 2+/4. No acute focal neurological deficit. Psych/Mental Status: Normal Affect, Appropriate. Assessment & Plan Assessment/Plan (1) CHF (congestive heart failure): QUALIFIERS: Heart failure type: unspecified Heart failure chronicity: acute on chronic Qualified Code(s): I50.9 - Heart failure, unspecified (2) Dyspnea on exertion: (3) Hyperkalemia: (4) JAMES (acute kidney injury): (5) Medical non-compliance: PLAN: Plan 69-year-old gentleman was admitted with shortness of breath, bilateral lower extremity swelling for 2 to 3 weeks. He denied cough. 1. AE CHF; cardiac arrest multiple times: Patient is being admitted in PCU. Started on IV bumetanide in and metoprolol 25 mg twice daily. 2D echo shows EF 35%, stage II diastolic dysfunction, severe global hypokinesis, mildly dilated RV. Moderate biatrial dilatation and bubble contrast study positive for PFO. Pyrotechnist is consulted. 09/19: Seen by consulting technical director. Agreed with IV diuretics, furosemide. Low-dose nitrate/hydralazine but patient currently hypotensive on Levophed drip. Patient had second cardiac arrest/CODE BLUE while transferring from CT scan suite. He had bradycardia and then cardiac arrest and then was taken to ED where he was intubated and code leader was Dr. Rivas. 2. Acute hypoxic respiratory failure from CODE BLUE, acute exacerbation of CHF: Patient ET Tube cuff burst therefore ET tube needs to be replaced. I went to ICU. Patient was still awake with Zolvit spasm therefore etomidate 20 mg IV given for sedation. Patient on propofol and fentanyl drip. With Bogie tube, ET tube was exchanged under Glydo scope. ET tube was seen passing through the vocal cords and confirmed with color change. ET tube passed on at 22 cm. chest x-ray shows adequate position of chest tube 3. Bilateral pleural effusion with iatrogenic pneumothorax: Patient underwent successful ultrasound-guided thoracocentesis by radiology. In 170 mL clear pleural fluid was drained. Postprocedure chest x-ray shows right-sided pneumothorax therefore bedside small bore chest tube was put in by surgical garment inspector. 4. Syncope while defecation, vasovagal and CODE BLUE with bilateral pleural effusion and concern for pneumonia: Patient had 6-minute of CODE BLUE in afternoon while defecation in the bathroom. He fell down therefore CT head also ordered. Pyrotechnist and intensive consulted. Earlier VQ scan negative.Ceftriaxone started with lower lung airspace consolidation although clinically less likely pneumonia. Pneumonia workup ordered 3. JAMES with hyperkalemiA likely due to urinary retention/cardiorenal disease with solitary Right kidney: Patient potassium improved from 5.7-4.5. Admitting creatinine 1.76 worse from 1.6 on 09/16. Had Kayexalate along with hyperkalemia cocktail. CT abdomen shows no significant prostate enlargement but mild urinary bladder distention. Small to medium ascites. Body wall anasarca. Large bilateral pleural effusion with associated lower lobe predominant airspace disease. Left kidney absent with moderate colonic stool and gas retention. No evidence of bowel obstruction. 4. Subclinical Hypothyroidism with elevated TSH of 8.59 but with normal FT4 of 1.08 and normal FT3 of 2.2 on recent admission adding to the medical complexity of #1 - #3 - Noted. Thyroid studies should be rechecked in 4-6 weeks. 5. Essential hypertension; on furosemide - metoprolol tartrate 25 mg p.o. twice daily. 6. History of DM-2; currently not on treatment - Check HgbA1c to confirm status. 7. Former tobacco abuse - Noted. 8. Osteoarthritis - Give Tylenol prn. 9. DVT prophylaxis -heparin 5000 units sq TID plus SCD's. Charges/Coding Visit Charges Inpatient E&M: 09124 Subs Hosp L3
[2024-09-19 14:25] LABS: Lymphocytes 41 %; Macrophages 39 %; Monocytes 4 %; Neutrophil (Segs) 16 %
[2024-09-19 14:28] LABS: Body Fluid QC Type(s) BF1Q,BF2Q
[2024-09-19] MEDS: Ceftriaxone 1 GM/50 ML BAG IV (14:41)
--- NOTE | 2024-09-19 14:52 | CHAPLAIN ---
Type of Pastoral Visit ___ Initial Visit ___ Follow-up Visit ___ On-call Visit ___ General Patient Visit ___ Spiritual Assessment ___ Family Conference ___ Bereavement ___ Rapid Response _x__ Code Blue ___ Other (describe below) Pastoral Care Referral From ___ Patient ___ Family ___ Nurse ___ Physician ___ Interior Design Consultant ___ Wedger _x__ Other (describe below) Sacrament/Intervention _x__ Active listening ___ Anointing ___ Oriental Orthodox ___ Bereavement ___ Communion ___ Sonja exploration ___ _x__ Life review _x__ Prayer ___ Reconciliation ___ Sacrament of Sick _x__ Supportive presence ___ Wedding ___ Other (describe below) Pastoral Comments Code Blue was called in the ICU and this globe cleaner went immediately to the room and situation; family members were not present but had been called and would be coming; SW also came to assist; as team worked on the patient he was revived; met the brother and nephew of the patient along with the SW; sat with family members and gave time for them to talk and speak of the patient, their family, and their own personal health needs; brother identifies self as a Anglican as he does also for his brother; family members welcome presence and prayer; later returned to the room as patient is stable now; family has left
--- NOTE | 2024-09-19 15:21 | PCM.CONS.R ---
Assessment & Plan Assessment/Plan (1) JAMES (acute kidney injury): (2) Nephrotic syndrome: PLAN: I suspect this patient has nephrotic syndrome secondary to underlying diabetic nephropathy, manifesting by fluid retention/edema, hypoalbuminemia, nephrotic range proteinuria. His baseline creatinine is not really known, as he had no labs done for about 2 years. Is a possibility that his baseline is about 1.6-1.7. He developed acute kidney injury secondary to IV contrast administration, may be due to blood pressure drop secondary to cardiorespiratory arrest. He is still quite fluid overloaded, hemodynamically stable, creatinine is stable. PLAN: Plan Suggest continue with diuresis, whether it is loop diuretic drip or intermittent IV pushes, it really does not matter, dose can be adjusted based on her fluid status and urine output, as well as creatinine. Kidney ultrasound has been done to assess size and asymmetry of the kidneys. Of course there is a possibility of other causes of nephrotic syndrome with renal insufficiency, but diabetes is by far most common cause. HPI Consult Data Date of Consult: 09/19/24 HPI Narrative Reason for Consultation: Acute kidney injury, edema. HPI Narrative: ZOE MENDEZ, is a 69 M who presents to emergency room with progressive weight gain, worsening lower extremity edema and shortness of breath. Patient has been diabetic for a while, but never been officially diagnosed with diabetic nephropathy. However back in 2021 his urinalysis showed that he has got some proteinuria. He is creatinine has been well-preserved up until couple days ago when he came in the emergency room for the first time with fluid retention and creatinine was 1.6. At that time he preferred not to stay and left the hospital. Nevertheless symptoms got progressively worse and he showed back to ICU yesterday with the above symptoms. He was found that his creatinine now is up to 1.7, and potassium was up to 5.7. Repeated potassium was normal and he was sent to PCU where he collapsed while being in the bathroom and required CPR. Apparently during that time his potassium was as high as 6.8 and he has been acutely treated for it. On admission due to possibility of pulmonary embolism he had CT angiogram with IV contrast administration, came back negative. He was placed on diuretics and started to make urine. Creatinine climbed up to 2.2-2.0 now. Potassium is 4.8 as of a couple hours ago. He has significant proteinuria, his albumin is 2.6. Initially was on Bumex drip, that has been discontinued. He is still quite edematous. He is currently on ventilator. [facility] Medical History History of COVID-19 Diabetes Home Medications ?Medication ?Instructions ?Recorded ?Last Taken ?Type furosemide 40 mg tablet 40 mg PO DAILY 7 days #7 tabs 09/16/24 09/17/24 Rx aspirin 81 mg tablet,delayed 81 mg PO DAILY 09/17/24 09/17/24 History release Allergy/AdvReac Type Severity Reaction Status Date / Time No Known Allergies Allergy Verified 09/17/24 16:53 Surgical History Hx of thumb surgery Social History Smoking Status: Former smoker ROS Review of Systems ROS Unobtainable: due to endotracheal tube Physical Exam Const average body habitus General Appearance: patient mechanically ventilated HEENT normocephalic Head and Scalp: atraumatic External Ear: external ears normal Neck no lymphadenopathy Resp clear to auscultation bilaterally Auscultation: diminished lung sounds Cardio regular rate Rate: bradycardia GI non-distended Auscultation: normoactive bowel sounds Palpation: soft and no hepatosplenomegaly Bladder / Kidney Exam: catheter in place Extremity General Extremity: edema right, left and bilateral Skin no rashes or lesions noted Neuro Sensorium / Orientation: sedated on vent Medical Records Data Attestation: I reviewed the patient's medical records Lab / Micro Data Attestation: I reviewed the patient's lab results. 09/19/24 12:15 09/19/24 12:15 Labs: Laboratory Results - last 24 hr 09/18/24 16:40: WBC 6.9, RBC 4.40 L, Hgb 12.3 L, Hct 39.3 L, MCV 89.3, MCH 28.0, MCHC 31.3 L, RDW Std Deviation 49.3 H, RDW Coeff of Agus 15.1 H, Plt Count 162, MPV 10.4, Immature Gran % (Auto) 0.700, Neut % (Auto) 84.4 H, Lymph % (Auto) 9.8 L, Erath % (Auto) 4.1, Eos % (Auto) 0.6, Baso % (Auto) 0.4, Absolute Neuts (auto) 5.8, Absolute Lymphs (auto) 0.67 L, Nucleated RBC % 0, Sodium 137, Potassium 6.8 H*, Chloride 106, Carbon Dioxide 24.0, Anion Gap 7, BUN 41 H, Creatinine 1.94 H, Estim Creat Clear Calc 33.19, Est GFR (MDRD) Af Amer 44 L, Est GFR (MDRD) Non-Af 37 L, BUN/Creatinine Ratio 21.1 H, Glucose 269 H, Lactic Acid 1.5, Calcium 8.3 L, Magnesium 2.2, Total Bilirubin 0.60, AST 33, ALT 27, Alkaline Phosphatase 123 H, Troponin I High Sens 140 H*, Total Protein 6.0 L, Albumin 2.7 L, Globulin 3.3, Albumin/Globulin Ratio 0.8 L 09/18/24 21:15: Sodium 142, Potassium 5.0, Chloride 109 H, Carbon Dioxide 26.0, Anion Gap 7, BUN 44 H, Creatinine 2.12 H, Estim Creat Clear Calc 30.37, Est GFR (MDRD) Af Amer 40 L, Est GFR (MDRD) Non-Af 33 L, BUN/Creatinine Ratio 20.8 H, Glucose 109 H, Calcium 9.2, Troponin I High Sens 286 H* 09/18/24 22:04: B-Natriuretic Peptide 4809.7 H 09/19/24 03:45: WBC 7.1, RBC 4.03 L, Hgb 11.1 L, Hct 35.7 L, MCV 88.6, MCH 27.5, MCHC 31.1 L, RDW Std Deviation 49.5 H, RDW Coeff of Agus 15.3 H, Plt Count 181, MPV 10.7, Immature Gran % (Auto) 0.400, Neut % (Auto) 76.1 H, Lymph % (Auto) 16.0 L, Erath % (Auto) 6.6, Eos % (Auto) 0.8, Baso % (Auto) 0.1, Absolute Neuts (auto) 5.4, Absolute Lymphs (auto) 1.14, Nucleated RBC % 0, Sodium 139, Potassium 5.3 H, Chloride 106, Carbon Dioxide 23.0, Anion Gap 9, BUN 42 H, Creatinine 1.92 H, Estim Creat Clear Calc 33.54, Est GFR (MDRD) Af Amer 45 L, Est GFR (MDRD) Non-Af 37 L, BUN/Creatinine Ratio 21.9 H, Glucose 136 H, Calcium 8.8, Phosphorus 5.1 H, Magnesium 2.3, Lactate Dehydrogenase 220, Total Protein 5.7 L, Globulin 3.1, Albumin/Globulin Ratio 0.8 L 09/19/24 12:15: WBC 9.4, RBC 4.08 L, Hgb 11.5 L, Hct 36.2 L, MCV 88.7, MCH 28.2, MCHC 31.8 L, RDW Std Deviation 49.4 H, RDW Coeff of Agus 15.5 H, Plt Count 182, MPV 10.6, Immature Gran % (Auto) 0.600, Neut % (Auto) 82.1 H, Lymph % (Auto) 10.9 L, Erath % (Auto) 5.2, Eos % (Auto) 0.9, Baso % (Auto) 0.3, Absolute Neuts (auto) 7.7, Absolute Lymphs (auto) 1.02, Nucleated RBC % 0, Sodium 139, Potassium 4.3, Chloride 106, Carbon Dioxide 24.0, Anion Gap 9, BUN 45 H, Creatinine 2.03 H, Estim Creat Clear Calc 31.67, Est GFR (MDRD) Af Amer 42 L, Est GFR (MDRD) Non-Af 35 L, BUN/Creatinine Ratio 22.2 H, Glucose 189 H, Calcium 8.5, Phosphorus 5.2 H, Magnesium 2.1, Total Bilirubin 0.90, AST 79 H, ALT 50, Alkaline Phosphatase 133 H, Total Creatine Kinase 154, Total Protein 5.7 L, Albumin 2.6 L, Globulin 3.1, Albumin/Globulin Ratio 0.8 L, Triglycerides 171 09/19/24 12:30: Fluid Source THORACENTESIS, Fluid Color YELLOW, Fluid Appearance CLEAR, Fluid WBC 0.107, Fluid RBC 785, Fluid Tot Cell Count 0.119, Fld Polynuclear WBCs # 0.020, Fld Polynuclear WBCs % 18.7, Fluid Mononuclear WBCs 0.087, Fld Mononuclear WBCs % 81.3, Fluid Neutrophils 16, Fluid Lymphocytes 41, Fluid Monocytes 4, Fluid Macrophages 39, Fl Pathologist Comment May follow, Fluid Glucose 164 H, Fluid Total Protein 1.4, Fluid LDH 73, Fluid Comment 2 SEE COMMENT Micro: Microbiology 09/19/24 12:30 Fluid - Pleural (Lung) Gram Stain - Final 09/19/24 13:13 Nasal Secretion MRSA (PCR) - Final 09/19/24 10:28 Sputum, Induced/Lukens Gram Stain - Final 09/19/24 13:12 Mucosa - Nasopharyngeal SARS-CoV-2, Influenza & RSV (PCR) - Final 09/18/24 23:38 Stool Clostridioides difficile (PCR) - Final 09/18/24 17:33 Mucosa - Nasopharyngeal Respiratory Panel (PCR) - Final ABG Data ABG results: ABG 09/18/24 09/19/24 22:38 10:47 Specimen Type ART ART Sample Site L Radial L Radial pH 7.40 7.43 Bicarbonate Actual 22.1 22.6 Total CO2 23 24 Base Excess -3 L -2 O2 Saturation 97 95 O2 % 100.0 35.0 ABG pCO2 35.9 33.8 L ABG pO2 93 70 L Fred Test Positive Positive Respiration Rate 16 O2 Delivery Device NRB Adult Vent Vent Mode Not entered AC Tidal Volume 450.0 POC PEEP 5 Rhythm Strip Rhythm Strip: Sinus Rhythm Rate: 55 Imaging Radiology Impression Venous Doppler Study 09/17/24 22:11 Interpretation Summary Deep veins of the bilateral lower extremities are patent and compressible segmentally. There is no evidence of bilateral lower extremity deep vein thrombosis. The bilateral great saphenous veins appear patent and compressible segmentally. Ordering Physician: Juice Raya Performed By: Tamia Cedeño RVT Chest X-Ray 09/18/24 15:34 IMPRESSION: No significant change since earlier today. Electronically Signed: Marcelo Vargas MD at 16:30 EST , Brain CT 09/18/24 16:30 IMPRESSION: 1. Chronic ischemic and involutional changes of the brain. Electronically Signed: Joseph Grissom MD at 15:57 EST , Chest X-Ray 09/18/24 21:58 IMPRESSION: undefined Chest CTA 09/19/24 08:56 IMPRESSION: No evidence of pulmonary embolism. Large bilateral pleural effusions right greater than left with bibasilar compressive atelectasis. Coronary artery calcification. Electronically Signed: Robert Campos MD at 10:03 EST , Chest X-Ray 09/19/24 09:46 IMPRESSION: The tip of the endotracheal tube is at the origin of the right mainstem bronchus. It should be pulled back 2 cm. Bilateral pleural effusions right greater than left with bibasilar atelectasis and/or infiltrates. Electronically Signed: Robert Campos MD at 10:21 EST , Chest X-Ray 09/19/24 09:55 IMPRESSION: The tip of the endotracheal tube is now at 2.3 cm proximal to the rafia. The remainder of the examination is unchanged. Electronically Signed: Robert Campos MD at 10:22 EST , Chest X-Ray 09/19/24 11:44 IMPRESSION: The tip of the endotracheal tube is at 3.2 cm proximal to the rafia. The remainder of the examination is unchanged. Electronically Signed: Robert Campos MD at 12:07 EST , Chest X-Ray 09/19/24 13:15 IMPRESSION: Status post right thoracentesis. 5-10% right pneumothorax. The right pleural effusion has resolved. Residual pleural parenchymal changes at the left lung base. Electronically Signed: Robert Campos MD at 13:28 EST , Chest X-Ray 09/19/24 13:37 IMPRESSION: Status post placement of a small-caliber right-sided chest tube with the tip at the right lung apex. No evidence of pneumothorax at this time. Electronically Signed: Robert Campos MD at 14:17 EST ,
[2024-09-19] MEDS: fentaNYL drip 100 ML 12.5 MCG CONT INF (15:52)
[2024-09-19] MEDS: Pantoprazole Sodium 40 MG in 0.9% Normal Saline (100mL MB+) 100 ML 330 MG IV (15:53)
[2024-09-19] MEDS: Chlorhexidine 15 ML PO (18:43)
[2024-09-20] VITALS (35 sets, daily range): BP systolic 93–131; BP diastolic 53–71; PULSE 58–72; RESP 16–17; TEMP 37.6–38.4; O2SAT 91–97; BMI 22.1
[2024-09-20] MEDS: 0.9% Saline Lock 10 ML Syringe IV (00:45)
[2024-09-20] MEDS: fentaNYL drip 100 ML 10 MCG CONT INF ×3 (00:45→22:00)
[2024-09-20] MEDS: Heparin Injection (Vial) 5,000 UNIT/ML VIAL 5000 UNIT SC ×3 (06:20→21:29)
--- NOTE | 2024-09-20 08:15 | PCM.PN.INT ---
Assessment & Plan Assessment/Plan (1) Acute hypoxemic respiratory failure: (2) Bilateral pleural effusion: (3) Cardiopulmonary arrest with successful resuscitation: PLAN: Plan RECOMMENDATIONS: 1. Continue assist-control mode mechanical ventilation. Wean FiO2 and PEEP for saturations greater than 90%. 2. Continue chest tube to wall suction. 3. Ongoing diuresis as tolerated by hemodynamics and renal function. 4. Continue empiric antibiotics. 5. Propofol and fentanyl for sedation. 6. Continue appropriate ICU prophylaxis. 7. Okay to initiate tube feeding. IMPRESSIONS: 1. Acute hypoxemic respiratory failure status post PEA cardiac arrest x 3 Clinical concern for underlying decompensated heart failure is main precipitating etiology. The patient has large bilateral pleural effusions, which are likely related to the patient's CHF. The patient was ultimately intubated after sustaining a PEA cardiac arrest. Recommend continuing goal-directed medical therapy per cardiology recommendations, along with diuresis as tolerated by hemodynamics and renal function. The patient underwent ultrasound-guided thoracentesis on September 19, which was complicated by iatrogenic pneumothorax requiring chest tube placement. For now, the patient will be continued on assist-control mode of mechanical ventilation, with a goal to wean FiO2 and PEEP to maintain saturations at or above 90%. Empiric antibiotics will also be continued. Fentanyl and propofol will be utilized for sedation. Per traditional Light's criteria, if at least one of the following three is fulfilled, the fluid would be considered an exudate: 1. Pleural fluid protein/serum protein ratio greater than 0.5 2. Pleural fluid LDH/serum LDH ratio greater than 0.6 3. Pleural fluid LDH greater than two thirds the upper limits of the laboratories normal serum LDH Based upon my review of the patient's pleural fluid analysis, along with serum LDH and total protein levels, the pleural fluid would be considered transudative in nature. 2. Acute decompensated heart failure Continue medical management per cardiology recommendations. 3. Iatrogenic pneumothorax Continue chest tube to wall suction. Obtain follow-up chest x-ray. 4. Acute kidney injury Underlying nephrotic syndrome is suspected in the setting of diabetic nephropathy with acute decompensation likely precipitated by hypotension in the setting of cardiac arrest and contrast administration. Nephrology is currently following to assist with medical management. 5. History of tobacco dependency/hypertension/diabetes mellitus Complicates care, management, recovery and prognosis. Continue to hold home medications for now. Okay to initiate tube feeding today from my perspective. TIME: 35 minutes of critical care time, independent of procedures, was spent addressing the patient's acute hypoxemic respiratory failure, PEA cardiac arrest, acute decompensated heart failure, acute kidney injury, review of all data and collaboration with the care team. Subjective Subjective The patient was seen and examined at the bedside this morning. Events from the last 24 hours have been reviewed. The patient currently has a low-grade fever but remains otherwise hemodynamically stable on assist-control mode of mechanical ventilation with an FiO2 requirement of 45% and PEEP of 5. The patient is sedated on propofol and fentanyl. White blood cell count remains normal. Creatinine is mildly increased to 2.03. Objective Data Objective Data The patient's most recent lab work, culture data and imaging studies have all been personally reviewed. Surface echocardiogram demonstrated a mildly dilated LV with severe global hypokinesis and an ejection fraction of 35%. Stage II diastolic dysfunction was noted. Bubble contrast study was positive for a PFO. Pulmonary artery systolic pressure was estimated to be 45 mmHg. Lower extremity Doppler study was negative for DVT. Infectious workup is pending. Vital Signs: Vital Signs Temp Pulse Resp BP Pulse Ox O2 Del Method O2 Flow Rate 100.7 F H 65 17 115/63 92 Mechanical Ventilator 5 09/20/24 06:00 09/20/24 06:45 09/20/24 06:45 09/20/24 06:19 09/20/24 06:45 09/20/24 06:00 09/19/24 09:00 FiO2 45 09/20/24 06:45 Oxygen Flow Rate (L/min) 5 Oxygen Delivery Method Mechanical Ventilator Weight: 141 lb 5.061 oz Body Mass Index (BMI) 22.1 Intake & Output: Intake and Output for Last 24 Hours 09/18/24 09/19/24 09/20/24 23:59 23:59 23:59 Intake Total 420 / 780 920.81 / 924.71 88.89 / 88.89 Output Total 3840 / 4240 675 / 675 Balance 420 / 780 -2919.19 / -3315.29 -586.11 / -586.11 Lab / Micro Data Attestation: I reviewed the patient's lab results. 09/19/24 12:15 09/19/24 12:15 Labs: Laboratory Results - last 24 hr 09/19/24 03:45: Lactate Dehydrogenase 220, Total Protein 5.7 L, Globulin 3.1, Albumin/Globulin Ratio 0.8 L 09/19/24 12:15: WBC 9.4, RBC 4.08 L, Hgb 11.5 L, Hct 36.2 L, MCV 88.7, MCH 28.2, MCHC 31.8 L, RDW Std Deviation 49.4 H, RDW Coeff of Agus 15.5 H, Plt Count 182, MPV 10.6, Immature Gran % (Auto) 0.600, Neut % (Auto) 82.1 H, Lymph % (Auto) 10.9 L, Chambers % (Auto) 5.2, Eos % (Auto) 0.9, Baso % (Auto) 0.3, Absolute Neuts (auto) 7.7, Absolute Lymphs (auto) 1.02, Nucleated RBC % 0, Sodium 139, Potassium 4.3, Chloride 106, Carbon Dioxide 24.0, Anion Gap 9, BUN 45 H, Creatinine 2.03 H, Estim Creat Clear Calc 31.67, Est GFR (MDRD) Af Amer 42 L, Est GFR (MDRD) Non-Af 35 L, BUN/Creatinine Ratio 22.2 H, Glucose 189 H, Calcium 8.5, Phosphorus 5.2 H, Magnesium 2.1, Total Bilirubin 0.90, AST 79 H, ALT 50, Alkaline Phosphatase 133 H, Total Creatine Kinase 154, Total Protein 5.7 L, Albumin 2.6 L, Globulin 3.1, Albumin/Globulin Ratio 0.8 L, Triglycerides 171 09/19/24 12:30: Fluid Source THORACENTESIS, Fluid Color YELLOW, Fluid Appearance CLEAR, Fluid WBC 0.107, Fluid RBC 785, Fluid Tot Cell Count 0.119, Fld Polynuclear WBCs # 0.020, Fld Polynuclear WBCs % 18.7, Fluid Mononuclear WBCs 0.087, Fld Mononuclear WBCs % 81.3, Fluid Neutrophils 16, Fluid Lymphocytes 41, Fluid Monocytes 4, Fluid Macrophages 39, Fl Pathologist Comment May follow, Fluid Glucose 164 H, Fluid Total Protein 1.4, Fluid LDH 73, Fluid Comment 2 SEE COMMENT Micro: Microbiology 09/19/24 16:00 Urine Catheter - Catheter Legionella Antigen - Final 09/19/24 16:00 Urine Catheter - Catheter Streptococcus pneumoniae Antigen (M - Final 09/19/24 12:30 Fluid - Pleural (Lung) Gram Stain - Final 09/19/24 13:13 Nasal Secretion MRSA (PCR) - Final 09/19/24 10:28 Sputum, Induced/Lukens Gram Stain - Final 09/19/24 13:12 Mucosa - Nasopharyngeal SARS-CoV-2, Influenza & RSV (PCR) - Final 09/18/24 23:38 Stool Clostridioides difficile (PCR) - Final 09/18/24 17:33 Mucosa - Nasopharyngeal Respiratory Panel (PCR) - Final ABG Data ABG results: ABG 09/19/24 10:47 Specimen Type ART Sample Site L Radial pH 7.43 Bicarbonate Actual 22.6 Total CO2 24 Base Excess -2 O2 Saturation 95 O2 % 35.0 ABG pCO2 33.8 L ABG pO2 70 L Fred Test Positive Respiration Rate 16 O2 Delivery Device Adult Vent Vent Mode AC Tidal Volume 450.0 POC PEEP 5 Radiography Diagnostic Testing: Radiology Impression Chest CTA 09/19/24 08:56 IMPRESSION: No evidence of pulmonary embolism. Large bilateral pleural effusions right greater than left with bibasilar compressive atelectasis. Coronary artery calcification. Electronically Signed: Robert Campos MD at 10:03 EST , Chest X-Ray 09/19/24 09:46 IMPRESSION: The tip of the endotracheal tube is at the origin of the right mainstem bronchus. It should be pulled back 2 cm. Bilateral pleural effusions right greater than left with bibasilar atelectasis and/or infiltrates. Electronically Signed: Robert Campos MD at 10:21 EST , Chest X-Ray 09/19/24 09:55 IMPRESSION: The tip of the endotracheal tube is now at 2.3 cm proximal to the rafia. The remainder of the examination is unchanged. Electronically Signed: Robert Campos MD at 10:22 EST , Chest X-Ray 09/19/24 11:44 IMPRESSION: The tip of the endotracheal tube is at 3.2 cm proximal to the rafia. The remainder of the examination is unchanged. Electronically Signed: Robert Campos MD at 12:07 EST , Chest X-Ray 09/19/24 13:15 IMPRESSION: Status post right thoracentesis. 5-10% right pneumothorax. The right pleural effusion has resolved. Residual pleural parenchymal changes at the left lung base. Electronically Signed: Robert Campos MD at 13:28 EST , Renal Ultrasound 09/19/24 13:16 IMPRESSION: Trace amount of perinephric fluid around the right kidney. There is no hydronephrosis. The patient status post left nephrectomy. Electronically Signed: Adalid Holt MD at 16:52 EST , Chest X-Ray 09/19/24 13:37 IMPRESSION: Status post placement of a small-caliber right-sided chest tube with the tip at the right lung apex. No evidence of pneumothorax at this time. Electronically Signed: Robert Campos MD at 14:17 EST , Rhythm Strip Rhythm Strip: Sinus Rhythm Rate: 55 Physical Exam Const Constitutional Narrative: Currently intubated, sedated and mechanically ventilated. No ventilator dyssynchrony noted. General Appearance: ill appearing and patient mechanically ventilated HEENT normocephalic and head/scalp atraumatic Mouth: endotracheal tube in place and OG tube in place Eyes PERRL, EOMs intact bilaterally and conjunctivae normal Neck supple General: trachea midline Chest inspection of chest normal Chest Narrative: No airleak noted in the patient's Pleur-evac. Chest: chest tube Resp Auscultation: diminished lung sounds Cardio regular rate and regular rhythm GI normal to inspection, nondistended, normoactive bowel sounds Extremity General Extremity: edema; Negative for clubbing Skin no rashes or lesions noted Neuro Sensorium / Orientation: sedated on vent Charges/Coding Procedures Hospitalists Procedures: 40812 Critical Care 1st Hr
--- NOTE | 2024-09-20 08:16 | RAD_ITS ---
STUDY: X-RAY CHEST REASON FOR EXAM: Male, 69 years old. Respiratory Failure TECHNIQUE: Single AP portable view of the chest. COMPARISON: Comparison is made with prior study dated September 19, 2024 at 1:42 PM. FINDINGS: An endotracheal tube is in situ. The tip is at 4.5 cm proximal to the rafia. An orogastric tube is seen with the tip in the body of the stomach. A small caliber right-sided chest tube is seen with the tip in the right lung apex. 5% right apical pneumothorax is seen this time. Blunting of the right costophrenic angle with a small right pleural effusion. Improved aeration at the left lung base. There is borderline cardiomegaly. Normal mediastinum and carissa. Normal visualized pulmonary arteries. There is atherosclerotic calcification of the aortic arch with tortuosity. There are diffuse degenerative changes of the visualized thoracic spine. Normal visualized ribs, clavicles, and shoulders. There is no demonstrated abnormality of the visualized soft tissue structures of the upper abdomen. RAD/Chest 1 View (Portable) IMPRESSION: 5% right apical pneumothorax. Small right pleural effusion. Improved aeration at the left base with mild residual pleural-parenchymal changes at the left lung base. Electronically Signed: Robert Campos MD at 8:58 EST ,
--- NOTE | 2024-09-20 08:30 | PCM.PN.HOSP ---
Reason for Visit Reason for Visit: Diagnoses Hyperkalemia (09/17/24) Cardiac arrest, cause unspecified (09/17/24) Heart failure, unspecified (09/17/24) Pleural effusion, not elsewhere classified (09/17/24) Acute respiratory failure with hypoxia (09/17/24) Nephrotic syndrome with unspecified morphologic changes (09/17/24) Acute kidney failure, unspecified (09/17/24) Patent foramen ovale (09/17/24) Other forms of dyspnea (09/17/24) Patient's noncompliance with other medical treatment and regimen due to unspecified reason (09/17/24) Objective Data Objective Data Vital Signs: Vital Signs Temp Pulse Resp BP Pulse Ox O2 Del Method O2 Flow Rate 100.7 F H 65 17 115/63 92 Mechanical Ventilator 5 09/20/24 06:00 09/20/24 06:45 09/20/24 06:45 09/20/24 06:19 09/20/24 06:45 09/20/24 06:00 09/19/24 09:00 FiO2 45 09/20/24 06:45 Oxygen Flow Rate (L/min) 5 Oxygen Delivery Method Mechanical Ventilator Weight: 141 lb 5.061 oz Body Mass Index (BMI) 22.1 Intake & Output: Intake and Output for Last 24 Hours 09/18/24 09/19/24 09/20/24 23:59 23:59 23:59 Intake Total 420 / 780 920.81 / 924.71 88.89 / 88.89 Output Total 3840 / 4240 675 / 675 Balance 420 / 780 -2919.19 / -3315.29 -586.11 / -586.11 Lab / Micro Data 09/19/24 12:15 09/19/24 12:15 Labs: Laboratory Results - last 24 hr 09/19/24 03:45: Lactate Dehydrogenase 220, Total Protein 5.7 L, Globulin 3.1, Albumin/Globulin Ratio 0.8 L 09/19/24 12:15: WBC 9.4, RBC 4.08 L, Hgb 11.5 L, Hct 36.2 L, MCV 88.7, MCH 28.2, MCHC 31.8 L, RDW Std Deviation 49.4 H, RDW Coeff of Agus 15.5 H, Plt Count 182, MPV 10.6, Immature Gran % (Auto) 0.600, Neut % (Auto) 82.1 H, Lymph % (Auto) 10.9 L, Grayson % (Auto) 5.2, Eos % (Auto) 0.9, Baso % (Auto) 0.3, Absolute Neuts (auto) 7.7, Absolute Lymphs (auto) 1.02, Nucleated RBC % 0, Sodium 139, Potassium 4.3, Chloride 106, Carbon Dioxide 24.0, Anion Gap 9, BUN 45 H, Creatinine 2.03 H, Estim Creat Clear Calc 31.67, Est GFR (MDRD) Af Amer 42 L, Est GFR (MDRD) Non-Af 35 L, BUN/Creatinine Ratio 22.2 H, Glucose 189 H, Calcium 8.5, Phosphorus 5.2 H, Magnesium 2.1, Total Bilirubin 0.90, AST 79 H, ALT 50, Alkaline Phosphatase 133 H, Total Creatine Kinase 154, Total Protein 5.7 L, Albumin 2.6 L, Globulin 3.1, Albumin/Globulin Ratio 0.8 L, Triglycerides 171 09/19/24 12:30: Fluid Source THORACENTESIS, Fluid Color YELLOW, Fluid Appearance CLEAR, Fluid WBC 0.107, Fluid RBC 785, Fluid Tot Cell Count 0.119, Fld Polynuclear WBCs # 0.020, Fld Polynuclear WBCs % 18.7, Fluid Mononuclear WBCs 0.087, Fld Mononuclear WBCs % 81.3, Fluid Neutrophils 16, Fluid Lymphocytes 41, Fluid Monocytes 4, Fluid Macrophages 39, Fl Pathologist Comment May follow, Fluid Glucose 164 H, Fluid Total Protein 1.4, Fluid LDH 73, Fluid Comment 2 SEE COMMENT Micro: Microbiology 09/19/24 16:00 Urine Catheter - Catheter Legionella Antigen - Final 09/19/24 16:00 Urine Catheter - Catheter Streptococcus pneumoniae Antigen (M - Final 09/19/24 12:30 Fluid - Pleural (Lung) Gram Stain - Final 09/19/24 13:13 Nasal Secretion MRSA (PCR) - Final 09/19/24 10:28 Sputum, Induced/Lukens Gram Stain - Final 09/19/24 13:12 Mucosa - Nasopharyngeal SARS-CoV-2, Influenza & RSV (PCR) - Final 09/18/24 23:38 Stool Clostridioides difficile (PCR) - Final 09/18/24 17:33 Mucosa - Nasopharyngeal Respiratory Panel (PCR) - Final ABG Data ABG results: ABG 09/19/24 10:47 Specimen Type ART Sample Site L Radial pH 7.43 Bicarbonate Actual 22.6 Total CO2 24 Base Excess -2 O2 Saturation 95 O2 % 35.0 ABG pCO2 33.8 L ABG pO2 70 L Fred Test Positive Respiration Rate 16 O2 Delivery Device Adult Vent Vent Mode AC Tidal Volume 450.0 POC PEEP 5 Radiography Diagnostic Testing: Radiology Impression Chest CTA 09/19/24 08:56 IMPRESSION: No evidence of pulmonary embolism. Large bilateral pleural effusions right greater than left with bibasilar compressive atelectasis. Coronary artery calcification. Electronically Signed: Robert Campos MD at 10:03 EST , Chest X-Ray 09/19/24 09:46 IMPRESSION: The tip of the endotracheal tube is at the origin of the right mainstem bronchus. It should be pulled back 2 cm. Bilateral pleural effusions right greater than left with bibasilar atelectasis and/or infiltrates. Electronically Signed: Robert Campos MD at 10:21 EST , Chest X-Ray 09/19/24 09:55 IMPRESSION: The tip of the endotracheal tube is now at 2.3 cm proximal to the rafia. The remainder of the examination is unchanged. Electronically Signed: Robert Campos MD at 10:22 EST , Chest X-Ray 09/19/24 11:44 IMPRESSION: The tip of the endotracheal tube is at 3.2 cm proximal to the rafia. The remainder of the examination is unchanged. Electronically Signed: Robert Campos MD at 12:07 EST , Chest X-Ray 09/19/24 13:15 IMPRESSION: Status post right thoracentesis. 5-10% right pneumothorax. The right pleural effusion has resolved. Residual pleural parenchymal changes at the left lung base. Electronically Signed: Robert Campos MD at 13:28 EST , Renal Ultrasound 09/19/24 13:16 IMPRESSION: Trace amount of perinephric fluid around the right kidney. There is no hydronephrosis. The patient status post left nephrectomy. Electronically Signed: Adalid Holt MD at 16:52 EST , Chest X-Ray 09/19/24 13:37 IMPRESSION: Status post placement of a small-caliber right-sided chest tube with the tip at the right lung apex. No evidence of pneumothorax at this time. Electronically Signed: Robert Campos MD at 14:17 EST , Rhythm Strip Rhythm Strip: Sinus Rhythm Rate: 55 Physical Exam Narrative Seen and examined in the morning. Had CODE BLUE x 3 total. Had a large right pleural effusion drained yesterday total 100 100 cc. Has a right axillary smallbore chest tube. Patient was admitted for leg swelling and shortness of breath gradually worsening for 2 to 3 weeks and was in the ED a day before admission and was prescribed furosemide but did not resolve any symptoms therefore came to admission. He has dry cough for 4 to 5 days. Denies sputum production or fever. He also history of his smoking 1 PPD started in teenage and quit 18 years ago Physical exam General: intubated and sedated HEENT: Atraumatic, Normocephalic Oral: ET and OG tube Neck: Supple, No JVD, Negative Carotid Bruits Chest wall/Lungs: Air entry diminished in bilateral lung bases. Right small bore chest tube. No air bubbles. Left pleural effusion Cardiovascular: Sinus rhythm, Normal S1, Normal S2, No M/G/R Abdomen: Bowel Sounds Present, Soft, Non Tender, Non-Distended : Cordoba catheter, dark urine No renal angle tenderness. No suprapubic tenderness. Extremities: 2+ pitting edema, Capillary Refill Less than 3 Seconds Skin: No rashes, No breakdown Musculoskeletal: No Tenderness to Palpation of Joints or Extremities Neurological: DTR 2/4. No acute focal neurological deficit. Psych/Mental Status: Sedated Assessment & Plan Assessment/Plan (1) CHF (congestive heart failure): QUALIFIERS: Heart failure type: unspecified Heart failure chronicity: acute on chronic Qualified Code(s): I50.9 - Heart failure, unspecified (2) Dyspnea on exertion: (3) Hyperkalemia: (4) JAMES (acute kidney injury): (5) Medical non-compliance: PLAN: Plan 69-year-old gentleman was admitted with shortness of breath, bilateral lower extremity swelling for 2 to 3 weeks. He denied cough. 1. AE CHF; cardiac arrest multiple times: Patient is being admitted in PCU. Started on IV bumetanide in and metoprolol 25 mg twice daily. 2D echo shows EF 35%, stage II diastolic dysfunction, severe global hypokinesis, mildly dilated RV. Moderate biatrial dilatation and bubble contrast study positive for PFO. [employer] is consulted. 09/19: Seen by patrol sergeant. Agreed with IV diuretics, furosemide. Low-dose nitrate/hydralazine but patient currently hypotensive on Levophed drip. Patient had second cardiac arrest/CODE BLUE while transferring from CT scan suite. He had bradycardia and then cardiac arrest and then was taken to ED where he was intubated and code leader was Dr. Rivas. 09/20: personnel monitor. Sinus rhythm. 2. Acute hypoxic respiratory failure from CODE BLUE, acute exacerbation of CHF with suspicion of pneumonia: Patient ET Tube cuff burst therefore ET tube needs to be replaced. I went to ICU. Patient was still awake with Zolvit spasm therefore etomidate 20 mg IV given for sedation. Patient on propofol and fentanyl drip. With Bogie tube, ET tube was exchanged under Glydo scope. ET tube was seen passing through the vocal cords and confirmed with color change. ET tube passed on at 22 cm. chest x-ray shows adequate position of chest tube 09/20: Postintubation ABG on 7.43/33.8/17 on 35% FiO2/450/16/. ABG in acceptable range. On vent support. Pleural fluid culture shows WBC and sputum culture shows GPC. Low-grade fever continue broad-spectrum antibiotics ceftriaxone and doxycycline. 3. Bilateral pleural effusion with iatrogenic pneumothorax: Patient underwent successful ultrasound-guided thoracocentesis by radiology. 1170 mL clear pleural fluid was drained. Postprocedure chest x-ray shows right-sided pneumothorax therefore bedside small bore chest tube was put in by records management coordinator. 07/21: Small bore chest tube. No air bubbles. I individually reviewed the chest x-ray which shows resolution of Pneumothorax. 4. Syncope while defecation, vasovagal and CODE BLUE with bilateral pleural effusion and concern for pneumonia: Patient had 6-minute of CODE BLUE in afternoon while defecation in the bathroom. He fell down therefore CT head also ordered. [employer] and intensive consulted. Earlier VQ scan negative.Ceftriaxone started with lower lung airspace consolidation although clinically less likely pneumonia. Pneumonia workup ordered 09/20:. 3. JAMES with hyperkalemia likely due to urinary retention/cardiorenal disease with solitary Right kidney: Patient potassium improved from 5.7-4.5. Admitting creatinine 1.76 worse from 1.6 on 09/16. Had Kayexalate along with hyperkalemia cocktail. CT abdomen shows no significant prostate enlargement but mild urinary bladder distention. Small to medium ascites. Body wall anasarca. Large bilateral pleural effusion with associated lower lobe predominant airspace disease. Left kidney absent with moderate colonic stool and gas retention. No evidence of bowel obstruction. 4. Subclinical Hypothyroidism with elevated TSH of 8.59 but with normal FT4 of 1.08 and normal FT3 of 2.2 on recent admission Thyroid studies should be rechecked in 4-6 weeks. 5. Essential hypertension; on furosemide - metoprolol tartrate 25 mg p.o. twice daily. 6. History of DM-2; currently not on treatment - Check HgbA1c to confirm status. 7. Former tobacco abuse - Noted. 8. Osteoarthritis - Give Tylenol prn. 9. DVT prophylaxis -heparin 5000 units sq TID plus SCD's. Charges/Coding Visit Charges Inpatient E&M: 81845 Subs Hosp L3
--- NOTE | 2024-09-20 08:38 | PN.CARD_ITS ---
Subjective Subjective The patient had 2 more episodes yesterday where he developed profound hypoxia and bradycardia requiring resuscitation. The second 1 required intubation. The patient remains intubated. He had a thoracentesis done of his right side that resulting in pneumothorax and a chest tube was placed. Currently the patient is sedated but awake and follows commands. He remains intubated O2 saturation is 95% heart rate is well-controlled and he has had no more hypoxic or bradycardic events. Objective Data Vital Signs: Vital Signs Temp Pulse Resp BP Pulse Ox O2 Del Method O2 Flow Rate 100.7 F H 65 17 115/63 92 Mechanical Ventilator 5 09/20/24 06:00 09/20/24 06:45 09/20/24 06:45 09/20/24 06:19 09/20/24 06:45 09/20/24 06:00 09/19/24 09:00 FiO2 45 09/20/24 06:45 Oxygen Flow Rate (L/min) 5 Oxygen Delivery Method Mechanical Ventilator Weight: 141 lb 5.061 oz Body Mass Index (BMI) 22.1 Intake & Output: Intake and Output for Last 24 Hours 09/18/24 09/19/24 09/20/24 23:59 23:59 23:59 Intake Total 420 / 780 920.81 / 924.71 88.89 / 88.89 Output Total 3840 / 4240 675 / 675 Balance 420 / 780 -2919.19 / -3315.29 -586.11 / -586.11 Lab / Micro Data Attestation: I reviewed the patient's lab results. 09/19/24 12:15 09/19/24 12:15 Labs: Laboratory Results - last 24 hr 09/19/24 03:45: Lactate Dehydrogenase 220, Total Protein 5.7 L, Globulin 3.1, A lbumin/Globulin Ratio 0.8 L 09/19/24 12:15: WBC 9.4, RBC 4.08 L, Hgb 11.5 L, Hct 36.2 L, MCV 88.7, MCH 28.2, MCHC 31.8 L, RDW Std Deviation 49.4 H, RDW Coeff of Agus 15.5 H, Plt Count 182, MPV 10.6, Immature Gran % (Auto) 0.600, Neut % (Auto) 82.1 H, Lymph % (Auto) 10.9 L, Cook % (Auto) 5.2, Eos % (Auto) 0.9, Baso % (Auto) 0.3, Absolute Neuts (auto) 7.7, Absolute Lymphs (auto) 1.02, Nucleated RBC % 0, Sodium 139, Potassium 4.3, Chloride 106, Carbon Dioxide 24.0, Anion Gap 9, BUN 45 H, C reatinine 2.03 H, Estim Creat Clear Calc 31.67, Est GFR (MDRD) Af Amer 42 L, Est GFR (MDRD) Non-Af 35 L, BUN/Creatinine Ratio 22.2 H, Glucose 189 H, Calcium 8.5, Phosphorus 5.2 H, Magnesium 2.1, Total Bilirubin 0.90, AST 79 H, ALT 50, A lkaline Phosphatase 133 H, Total Creatine Kinase 154, Total Protein 5.7 L, A lbumin 2.6 L, Globulin 3.1, Albumin/Globulin Ratio 0.8 L, Triglycerides 171 09/19/24 12:30: Fluid Source THORACENTESIS, Fluid Color YELLOW, Fluid Appearance CLEAR, Fluid WBC 0.107, Fluid RBC 785, Fluid Tot Cell Count 0.119, Fld Polynuclear WBCs # 0.020, Fld Polynuclear WBCs % 18.7, Fluid Mononuclear WBCs 0.087, Fld Mononuclear WBCs % 81.3, Fluid Neutrophils 16, Fluid Lymphocytes 41, Fluid Monocytes 4, Fluid Macrophages 39, Fl Pathologist Comment May follow, F luid Glucose 164 H, Fluid Total Protein 1.4, Fluid LDH 73, Fluid Comment 2 SEE COMMENT Micro: Microbiology 09/19/24 16:00 Urine Catheter - Catheter Legionella Antigen - Final 09/19/24 16:00 Urine Catheter - Catheter Streptococcus pneumoniae Antigen (M - Final 09/19/24 12:30 Fluid - Pleural (Lung) Gram Stain - Final 09/19/24 13:13 Nasal Secretion MRSA (PCR) - Final 09/19/24 10:28 Sputum, Induced/Lukens Gram Stain - Final 09/19/24 13:12 Mucosa - Nasopharyngeal SARS-CoV-2, Influenza & RSV (PCR) - Final ABG Data ABG results: ABG 09/19/24 10:47 Specimen Type ART Sample Site L Radial pH 7.43 Bicarbonate Actual 22.6 Total CO2 24 Base Excess -2 O2 Saturation 95 O2 % 35.0 ABG pCO2 33.8 L ABG pO2 70 L Fred Test Positive Respiration Rate 16 O2 Delivery Device Adult Vent Vent Mode AC Tidal Volume 450.0 POC PEEP 5 Rhythm Strip Rhythm Strip: Sinus Rhythm Rate: 60 Cardiology Labs/Tests 09/19/24 10:47: pH 7.43, Bicarbonate Actual 22.6, Base Excess -2, O2 Saturation 95, ABG pCO2 33.8 L, ABG pO2 70 L, Fred Test Positive 09/19/24 12:15: WBC 9.4, RBC 4.08 L, Hgb 11.5 L, Hct 36.2 L, MCV 88.7, MCH 28.2, MCHC 31.8 L, Plt Count 182, MPV 10.6, Immature Gran % (Auto) 0.600, Neut % (Auto) 82.1 H, Lymph % (Auto) 10.9 L, Cook % (Auto) 5.2, Eos % (Auto) 0.9, Baso % (Auto) 0.3, Absolute Neuts (auto) 7.7, Nucleated RBC % 0, Sodium 139, Potassium 4.3, Chloride 106, Carbon Dioxide 24.0, Anion Gap 9, BUN 45 H, C reatinine 2.03 H, Est GFR (MDRD) Af Amer 42 L, Est GFR (MDRD) Non-Af 35 L, B UN/Creatinine Ratio 22.2 H, Glucose 189 H, Calcium 8.5, Phosphorus 5.2 H, Magnesium 2.1, Total Bilirubin 0.90, Triglycerides 171 Rhythm: EKG: ECHO: Stress Test: Cardiac Cath: PCI: CT Surgery: Holter monitor: EPS: PPM: CXR: Chest CT Scan: Radiography Diagnostic Testing: Radiology Impression Chest CTA 09/19/24 08:56 IMPRESSION: No evidence of pulmonary embolism. Large bilateral pleural effusions right greater than left with bibasilar compressive atelectasis. Coronary artery calcification. Electronically Signed: Robert Campos MD at 10:03 EST , Chest X-Ray 09/19/24 09:46 IMPRESSION: The tip of the endotracheal tube is at the origin of the right mainstem bronchus. It should be pulled back 2 cm. Bilateral pleural effusions right greater than left with bibasilar atelectasis and/or infiltrates. Electronically Signed: Robert Campos MD at 10:21 EST , Chest X-Ray 09/19/24 09:55 IMPRESSION: The tip of the endotracheal tube is now at 2.3 cm proximal to the rafia. The remainder of the examination is unchanged. Electronically Signed: Robert Campos MD at 10:22 EST , Chest X-Ray 09/19/24 11:44 IMPRESSION: The tip of the endotracheal tube is at 3.2 cm proximal to the rafia. The remainder of the examination is unchanged. Electronically Signed: Robert Campos MD at 12:07 EST , Chest X-Ray 09/19/24 13:15 IMPRESSION: Status post right thoracentesis. 5-10% right pneumothorax. The right pleural effusion has resolved. Residual pleural parenchymal changes at the left lung base. Electronically Signed: Robert Campos MD at 13:28 EST , Renal Ultrasound 09/19/24 13:16 IMPRESSION: Trace amount of perinephric fluid around the right kidney. There is no hydronephrosis. The patient status post left nephrectomy. Electronically Signed: Aadlid Holt MD at 16:52 EST , Chest X-Ray 09/19/24 13:37 IMPRESSION: Status post placement of a small-caliber right-sided chest tube with the tip at the right lung apex. No evidence of pneumothorax at this time. Electronically Signed: Robert Campos MD at 14:17 EST , Physical Exam Narrative Patient is intubated and sedated. He does respond to verbal stimuli. He follows simple commands squeezing hands. Const alert HEENT normocephalic Eyes EOMs intact bilaterally Chest Chest Narrative: Patient is cachectic. Resp Resp Narrative: Patient is breathing with the ventilator. Auscultation: crackles bilateral base Cardio regular rate, regular rhythm, S1 normal heart sound, S2 normal heart sound, no murmurs, no rub and no gallops Cardio Narrative: Distant heart tones Extremity no pedal edema Neuro Neuro Narrative: Patient arousable but sedated. Follows simple commands Assessment & Plan Assessment/Plan (1) Cardiopulmonary arrest with successful resuscitation: PLAN: Patient status post cardiopulmonary arrest on 3 separate occasions. All appeared to be bradycardic events precipitated by hypoxia or at least correlated with hypoxic events. Since thoracentesis and intubation the patient's had no recurrence. (2) Sinus bradycardia: PLAN: Sinus bradycardia appear to be related to a vagal type issue and was temporally correlated with hypoxia. (3) Acute hypoxemic respiratory failure: PLAN: Patient is currently intubated and being monitored and treated by the pulmonary service. (4) Nephrotic syndrome: PLAN: Patient's albumin is 2.6. The nephrotic syndrome is being addressed by the primary service. PLAN: Plan 1. Patient's cardiac status appears to be stable. 2. It appears that the bradycardic events are secondary to hypoxia and his general medical situation creating vagal episodes. 3. We will continue to follow as directed. Please call if further assistance is needed. 4. At this point in time I do not see that there is any further cardiac evaluation indicated. Charges/Coding Visit Charges Inpatient E&M: 67384 Subs Hosp L2
[2024-09-20] MEDS: Pantoprazole Sodium 40 MG in 0.9% Normal Saline (100mL MB+) 100 ML 330 MG IV (09:45)
[2024-09-20] MEDS: Furosemide 40 MG/4 ML Vial IV ×2 (09:49→18:13)
[2024-09-20] MEDS: Acetaminophen 325 MG Tablet 650 MG GT ×2 (09:55→18:20)
[2024-09-20] MEDS: Ceftriaxone 1 GM/50 ML BAG IV (10:13)
[2024-09-20] MEDS: Chlorhexidine 15 ML PO ×2 (10:15→21:27)
--- NOTE | 2024-09-20 14:02 | CASEMGMT ---
RN CM Assessment Pt is currently on the mechanical ventilator and is unable to answer this RN INDER questions for assessment. Pt has also gone through 3 CODE BLUE events during his stay. TC to pt NOK on file, Brother Carroll, who states willingness to help answer this RN CM questions. Care providers, pharmacy, and demographics verified. Admitting dx: AE CHF, Hyperkalemia, JAMES and Medical Non-Compliance LACE Strata: 3 PCP: No PCP. Hx at the [facility] but pt brother states that the pt did not like the care he received from the [facility] Specialists: Denies [facility] Insurance: [facility] Prescription Benefit: Yes LNOK: Carroll Burns (Brother), Home Burns (Brother). Carroll states that he wants to become the pt HCPOA. This RN CM explained to Carroll that this cannot be accomplished at this time as the pt is incapacitated. RN INDER updated SW and SW will f/u with the pt brother. Living Arrangements: Pt lives with his brother, Carroll, in a single story modular home with 2 steps to enter ADLs/IADLs: Ind prior to arrival Transportation: Self, brother DME: [employer]. Regular walker. HHC/SNF: Denies history Plan: TBD. CM and SW to continue to follow. Darrel Puga RN, CM
[2024-09-20 14:13] LABS: Pathologist Comment/Body Fluid Reviewed
--- NOTE | 2024-09-20 14:24 | PCM.PN.REN ---
Subjective Subjective Follow-up on acute kidney injury, fluid retention, nephrotic syndrome, diabetic nephropathy. He remains intubated, responds nicely to twice a day diuretics. Fluid balance is -1 L. Blood pressure is soft, but no pressors. FiO2 45% PEEP of 5. Objective Data Objective Data Vital Signs: Vital Signs Temp Pulse Resp BP Pulse Ox O2 Del Method O2 Flow Rate 101.0 F H 65 16 112/59 L 93 Mechanical Ventilator 5 09/20/24 10:00 09/20/24 11:48 09/20/24 11:48 09/20/24 10:00 09/20/24 11:48 09/20/24 13:00 09/19/24 09:00 FiO2 45 09/20/24 11:48 Oxygen Flow Rate (L/min) 5 Oxygen Delivery Method Mechanical Ventilator Weight: 64.1 kg Body Mass Index (BMI) 22.1 Intake & Output: Intake and Output for Last 24 Hours 09/18/24 09/19/24 09/20/24 23:59 23:59 23:59 Intake Total 420 / 780 920.81 / 924.71 471.74 / 471.74 Output Total 3840 / 4240 675 / 675 Balance 420 / 780 -2919.19 / -3315.29 -203.26 / -203.26 Lab / Micro Data Attestation: I reviewed the patient's lab results. 09/19/24 12:15 09/19/24 12:15 Labs: Laboratory Results - last 24 hr 09/19/24 12:30: Fluid Neutrophils 16, Fluid Lymphocytes 41, Fluid Monocytes 4, Fluid Macrophages 39, Fl Pathologist Comment Reviewed Micro: Microbiology 09/19/24 12:30 Fluid - Pleural (Lung) Gram Stain - Final 09/19/24 12:30 Fluid - Pleural (Lung) Body Fluid Culture - Preliminary No growth-Final to follow 09/19/24 10:28 Sputum, Induced/Lukens Gram Stain - Final 09/19/24 10:28 Sputum, Induced/Lukens Respiratory Culture - Preliminary Culture exhibits no growth. 09/19/24 16:00 Urine Catheter - Catheter Legionella Antigen - Final 09/19/24 16:00 Urine Catheter - Catheter Streptococcus pneumoniae Antigen (M - Final 09/19/24 13:13 Nasal Secretion MRSA (PCR) - Final 09/19/24 13:12 Mucosa - Nasopharyngeal SARS-CoV-2, Influenza & RSV (PCR) - Final 09/18/24 23:38 Stool Clostridioides difficile (PCR) - Final 09/18/24 17:33 Mucosa - Nasopharyngeal Respiratory Panel (PCR) - Final Radiography Diagnostic Testing: Radiology Impression Thoracentesis Ultrasound 09/19/24 10:02 IMPRESSION: Ultrasound-guided right thoracentesis. Electronically Signed: Robert Campos MD at 9:40 EST , Renal Ultrasound 09/19/24 13:16 IMPRESSION: Trace amount of perinephric fluid around the right kidney. There is no hydronephrosis. The patient status post left nephrectomy. Electronically Signed: Adalid Holt MD at 16:52 EST , Chest X-Ray 09/20/24 08:16 IMPRESSION: 5% right apical pneumothorax. Small right pleural effusion. Improved aeration at the left base with mild residual pleural-parenchymal changes at the left lung base. Electronically Signed: Robert Campos MD at 8:58 EST , Rhythm Strip Rhythm Strip: Sinus Rhythm Rate: 60 Physical Exam Const General Appearance: patient mechanically ventilated HEENT normocephalic Head and Scalp: atraumatic Neck no lymphadenopathy Resp clear to auscultation bilaterally Cardio regular rate GI non-distended Auscultation: normoactive bowel sounds Palpation: soft Extremity General Extremity: edema bilateral lower extremity Skin no rashes or lesions noted Neuro Sensorium / Orientation: sedated on vent Assessment & Plan Assessment/Plan (1) Nephrotic syndrome: PLAN: Edema is a little bit better, fluid balance -1000 cc, no creatinine today. I am sure he can tolerate higher doses of diuretics, will increase frequency of Lasix IF blood pressure tolerates. (2) JAMES (acute kidney injury): PLAN: Acute kidney injury secondary to contrast-induced nephropathy. Diabetic kidneys are particularly vulnerable and prone to develop acute kidney injury secondary to contrast.
--- NOTE | 2024-09-20 14:30 | CASEMGMT ---
Social Work- SW spoke with Carroll, pt brother, as Carroll had questions regarding POA. SW provided education on POA parameters and that a document could not be completed unless pt was A & O x 3. SW shared hierarchy of decision making; Carroll provided family information as follows. Carroll reports that pt has lived with him for 25 years. Carroll reports that he and older brother Home have not spoken in 2.5 years. Carroll reports that there is a sister Mishel (last name unknown), age 74, who had a stroke and is unable to speak. Mishel's Andrew can be reached at [phone]. Andrew and Mishel have been approximately 15 years. Carroll reported that pt does have a son, Nader Muhammad, age unknown, but believed to be around 34 years of age, that pt has reportedly never had a relationship with. Carroll reports that Nader has his step-dad's last name and does not acknowledge pt as his father. Carroll reports that pt has met Nader twice in his life when he was young, but never had a relationship with him and never desired to try to have a relationship due to dynamics with the mother. Carroll is uncertain where Nader lives or any information about him, as pt never had contact with Nader. Carroll feels that pt would adamantly not want or trust Nader to make decisions. Carroll would like to have pt complete POA when able. NASIR reached out to [employer]/police to see if contact information for Ndaer could be located; NASIR left a voicemail. NASIR followed up with SW boiler house supervisor and advised ICU bedside nurse of information as well. NASIR remains available to follow. MATTEO Morales
[2024-09-20] MEDS: Propofol 10MG/Ml 1,000 MG/100 ML Bottle 3.9 MG CONT INF (15:55)
[2024-09-20] MEDS: Vital AF 1.2 Cal Liquid 1,000 ML 20 ML GT (16:36)
--- NOTE | 2024-09-20 20:25 | NURSING ---
Jeni PAL passed along that Dr. Somers would like all medications for HR/BP control to be held; considering trending vitals signs and continuing propofol/fentanyl infusions. This RN acknowledges to hold HR/BP medications.
[2024-09-21] VITALS (36 sets, daily range): BP systolic 109–133; BP diastolic 49–86; PULSE 58–85; RESP 16–18; TEMP 37.7–38.7; O2SAT 85–98; BMI 21.6
[2024-09-21] MEDS: Propofol 10MG/Ml 1,000 MG/100 ML Bottle 3.9 MG CONT INF (02:29)
[2024-09-21] MEDS: Vital AF 1.2 Cal Liquid 1,000 ML 20 ML GT (05:46)
[2024-09-21] MEDS: Heparin Injection (Vial) 5,000 UNIT/ML VIAL 5000 UNIT SC ×3 (05:47→22:21)
[2024-09-21 06:01] LABS: Absolute Lymphocyte Count 1.25 X10^3/uL (0.83-4.51); Absolute Neutrophil Count 7.4 X10^3/uL (2.0-7.7); Basophil# 0.05 X10^3/uL; Basophil% 0.5 % (0-1); Eosinophil# 0.21 X10^3/uL; Eosinophils% 2.2 % (0-5); Hemoglobin 12.5 g/dL (13.0-16.5); Lymphocyte # 1.25 X10^3/ul (0.83-4.51); Lymphocyte % 13.1 % (19-41); Mean Corp Hgb Conc 31.3 g/dL (32-36); Mean Corpuscular Hgb 28.2 pg (27.0-32.0); Mean Corpuscular Volume 90.1 fL (80-94); Monocyte# 0.58 X10^3/uL; Monocyte% 6.1 % (0-10); NRBC Flagged by Analyzer 0 % (0-5); Neutrophil # 7.42 X10^3/uL (2.7-7.7); Neutrophil % 77.5 % (47-70); Platelet Count 164 K/mm3 (150-450); RBC Distribution Width CV 15.5 % (11.6-14.6); RBC Distribution Width SD 51.3 fl (35.1-43.9); Red Blood Count 4.44 M/mm3 (4.6-6.2); White Blood Count 9.6 K/mm3 (4.4-11.0)
[2024-09-21 06:19] LABS: Anion Gap 6 (5-15); BUN 47 mg/dL (7-18); Calcium,Total 8.1 mg/dL (8.5-10.1); Chloride 107 mmol/L (98-107); Creatinine, Serum 2.35 mg/dL (0.70-1.30); EST Glomerular Filtration Rate 29 mL/min (>60); Est Glom Filt Rate - Afr Amer 36 mL/min (>60); Estimated Creatinine Clearance 26.23 ml/min; Glucose 99 mg/dL (74-106); Potassium 3.8 mmol/L (3.5-5.1); Sodium Level 140 mmol/L (136-145)
[2024-09-21] MEDS: fentaNYL drip 100 ML 12.5 MCG CONT INF ×2 (07:49→16:26)
--- NOTE | 2024-09-21 09:29 | PCM.PN.HOSP ---
Reason for Visit Reason for Visit: Diagnoses Hyperkalemia (09/17/24) Cardiac arrest, cause unspecified (09/17/24) Heart failure, unspecified (09/17/24) Pleural effusion, not elsewhere classified (09/17/24) Acute respiratory failure with hypoxia (09/17/24) Nephrotic syndrome with unspecified morphologic changes (09/17/24) Acute kidney failure, unspecified (09/17/24) Patent foramen ovale (09/17/24) Bradycardia, unspecified (09/17/24) Other forms of dyspnea (09/17/24) Patient's noncompliance with other medical treatment and regimen due to unspecified reason (09/17/24) Objective Data Objective Data Vital Signs: Vital Signs Temp Pulse Resp BP Pulse Ox O2 Del Method O2 Flow Rate 100.9 F H 68 16 111/59 L 93 Mechanical Ventilator 5 09/21/24 07:00 09/21/24 07:41 09/21/24 07:41 09/21/24 07:00 09/21/24 07:41 09/21/24 07:00 09/19/24 09:00 FiO2 40 09/21/24 07:41 Oxygen Flow Rate (L/min) 5 Oxygen Delivery Method Mechanical Ventilator Weight: 137 lb 12.623 oz Body Mass Index (BMI) 21.6 Intake & Output: Intake and Output for Last 24 Hours 09/19/24 09/20/24 09/21/24 23:59 23:59 23:59 Intake Total 920.81 / 924.71 859.47 / 958.37 727.46 / 727.46 Output Total 3840 / 4240 1300 / 2650 1800 / 1800 Balance -2919.19 / -3315.29 -440.53 / -1691.63 -1072.54 / -1072.54 Lab / Micro Data 09/21/24 05:45 09/21/24 05:45 Labs: Laboratory Results - last 24 hr 09/19/24 12:30: Fl Pathologist Comment Reviewed 09/21/24 05:45: WBC 9.6, RBC 4.44 L, Hgb 12.5 L, Hct 40.0, MCV 90.1, MCH 28.2, MCHC 31.3 L, RDW Std Deviation 51.3 H, RDW Coeff of Agus 15.5 H, Plt Count 164, MPV 10.0, Immature Gran % (Auto) 0.600, Neut % (Auto) 77.5 H, Lymph % (Auto) 13.1 L, [place] % (Auto) 6.1, Eos % (Auto) 2.2, Baso % (Auto) 0.5, Absolute Neuts (auto) 7.4, Absolute Lymphs (auto) 1.25, Nucleated RBC % 0, Sodium 140, Potassium 3.8, Chloride 107, Carbon Dioxide 27.0, Anion Gap 6, BUN 47 H, Creatinine 2.35 H, Estim Creat Clear Calc 26.23, Est GFR (MDRD) Af Amer 36 L, Est GFR (MDRD) Non-Af 29 L, BUN/Creatinine Ratio 20.0, Glucose 99, Calcium 8.1 L Micro: Microbiology 09/19/24 10:28 Sputum, Induced/Lukens Gram Stain - Final 09/19/24 10:28 Sputum, Induced/Lukens Respiratory Culture - Final Culture exhibits no growth. 09/18/24 18:30 Blood Culture (Wb) - Anticubital Right Blood Culture - Preliminary No growth in 48 hours. 09/19/24 12:30 Fluid - Pleural (Lung) Gram Stain - Final 09/19/24 12:30 Fluid - Pleural (Lung) Body Fluid Culture - Preliminary No growth-Final to follow 09/19/24 16:00 Urine Catheter - Catheter Legionella Antigen - Final 09/19/24 16:00 Urine Catheter - Catheter Streptococcus pneumoniae Antigen (M - Final 09/19/24 13:13 Nasal Secretion MRSA (PCR) - Final 09/19/24 13:12 Mucosa - Nasopharyngeal SARS-CoV-2, Influenza & RSV (PCR) - Final 09/18/24 23:38 Stool Clostridioides difficile (PCR) - Final 09/18/24 17:33 Mucosa - Nasopharyngeal Respiratory Panel (PCR) - Final Radiography Diagnostic Testing: Radiology Impression Thoracentesis Ultrasound 09/19/24 10:02 IMPRESSION: Ultrasound-guided right thoracentesis. Electronically Signed: Robert Campos MD at 9:40 EST , Rhythm Strip Rhythm Strip: Sinus Rhythm Rate: 60 Physical Exam Narrative Seen and examined in the morning. No acute issues overnight. Did not require vasopressor. Chest tube connected with under waterseal. No air bubbles. Patient was admitted for leg swelling and shortness of breath gradually worsening for 2 to 3 weeks and was in the ED a day before admission and was prescribed furosemide but did not resolve any symptoms therefore came to admission. He has dry cough for 4 to 5 days. Denies sputum production or fever. He also history of his smoking 1 PPD started in teenage and quit 18 years ago Physical exam General: intubated and sedated HEENT: Atraumatic, Normocephalic Oral: ET and OG tube Neck: Supple, No JVD, Negative Carotid Bruits Chest wall/Lungs: Air entry diminished in bilateral lung bases. Right small bore chest tube. No air bubbles. Left pleural effusion Cardiovascular: Sinus rhythm, Normal S1, Normal S2, No M/G/R Abdomen: Bowel Sounds Present, Soft, Non Tender, Non-Distended : [place] catheter, dark urine No renal angle tenderness. No suprapubic tenderness. Extremities: 2+ pitting edema, Capillary Refill Less than 3 Seconds Skin: No rashes, No breakdown Musculoskeletal: No Tenderness to Palpation of Joints or Extremities Neurological: DTR 2/4. No acute focal neurological deficit. Psych/Mental Status: Sedated Assessment & Plan Assessment/Plan (1) CHF (congestive heart failure): QUALIFIERS: Heart failure type: unspecified Heart failure chronicity: acute on chronic Qualified Code(s): I50.9 - Heart failure, unspecified (2) Dyspnea on exertion: (3) Hyperkalemia: (4) JAMES (acute kidney injury): (5) Medical non-compliance: PLAN: Plan 69-year-old gentleman was admitted with shortness of breath, bilateral lower extremity swelling for 2 to 3 weeks. He denied cough. 1. AE CHF; cardiac arrest multiple times: Patient is being admitted in PCU. Started on IV bumetanide in and metoprolol 25 mg twice daily. 2D echo shows EF 35%, stage II diastolic dysfunction, severe global hypokinesis, mildly dilated RV. Moderate biatrial dilatation and bubble contrast study positive for PFO. Nuclear Auxiliary Operator is consulted. 09/19: Seen by automobile body repair chief. Agreed with IV diuretics, furosemide. Low-dose nitrate/hydralazine but patient currently hypotensive on Levophed drip. Patient had second cardiac arrest/CODE BLUE while transferring from CT scan suite. He had bradycardia and then cardiac arrest and then was taken to ED where he was intubated and code leader was Dr. Rivas. 09/20: bus driver/monitor. Sinus rhythm. 09/21: Not on vasopressor. Sinus rhythm. 2. Acute hypoxic respiratory failure from CODE BLUE/cardiac arrest, acute exacerbation of CHF with suspicion of pneumonia: Patient ET Tube cuff burst therefore ET tube needs to be replaced. I went to ICU. Patient was still awake with Zolvit spasm therefore etomidate 20 mg IV given for sedation. Patient on propofol and fentanyl drip. With Bogie tube, ET tube was exchanged under Glydo scope. ET tube was seen passing through the vocal cords and confirmed with color change. ET tube passed on at 22 cm. chest x-ray shows adequate position of chest tube 09/20: Postintubation ABG on 7.43/33.8/17 on 35% FiO2/450/16/. ABG in acceptable range. On vent support. Pleural fluid culture shows WBC and sputum culture shows GPC. Low-grade fever continue broad-spectrum antibiotics ceftriaxone and doxycycline. 09/21: Had 3 times CODE BLUE, First 1 on 09/18/2024 when he was moved to ICU and then to CODE BLUE was on 09/19/2024. 3. Bilateral pleural effusion with iatrogenic pneumothorax: Patient underwent successful ultrasound-guided thoracocentesis by radiology. 1170 mL clear pleural fluid was drained. Postprocedure chest x-ray shows right-sided pneumothorax therefore bedside small bore chest tube was put in by occupational health and safety manager. 09/20: Small bore chest tube. No air bubbles. I individually reviewed the chest x-ray which shows resolution of Pneumothorax. 09/21: Chest tube no air bubbles on under waterseal. Advised to talk to occupational health and safety manager may be connected to WALL suction 4. Syncope while defecation, vasovagal and CODE BLUE with bilateral pleural effusion and concern for pneumonia: Patient had 6-minute of CODE BLUE in afternoon while defecation in the bathroom. He fell down therefore CT head also ordered. Nuclear Auxiliary Operator and intensive consulted. Earlier VQ scan negative.Ceftriaxone started with lower lung airspace consolidation although clinically less likely pneumonia. Pneumonia workup ordered 09/21: Pleural fluid Gram stain shows no organism yet. Endotracheal culture from 09/19 shows 4+ WBC and rare GPC but culture does not exhibit any growth. Urinary antigens are negative. Continue empiric IV ceftriaxone 3. JAMES with hyperkalemia likely due to urinary retention/cardiorenal disease with solitary Right kidney: Patient potassium improved from 5.7-4.5. Admitting creatinine 1.76 worse from 1.6 on 09/16. Had Kayexalate along with hyperkalemia cocktail. CT abdomen shows no significant prostate enlargement but mild urinary bladder distention. Small to medium ascites. Body wall anasarca. Large bilateral pleural effusion with associated lower lobe predominant airspace disease. Left kidney absent with moderate colonic stool and gas retention. No evidence of bowel obstruction. 09/21: Creatinine is going up, admitting creatinine 1.6-2.35 today. Credit Analysis Manager on board. Possible nephrotic syndrome. Proteinuria and hypoalbuminemia. Suspicion of contrast-induced nephropathy related JAMES TOO. Urine output 1800 mL so far. 4. Subclinical Hypothyroidism with elevated TSH of 8.59 but with normal FT4 of 1.08 and normal FT3 of 2.2 on recent admission Thyroid studies should be rechecked in 4-6 weeks. 5. Essential hypertension; on furosemide - metoprolol tartrate 25 mg p.o. twice daily. 6. History of DM-2; currently not on treatment - Check HgbA1c to confirm status. 7. Former tobacco abuse - Noted. 8. Osteoarthritis - Give Tylenol prn. 9. DVT prophylaxis -heparin 5000 units sq TID plus SCD's. Charges/Coding Visit Charges Inpatient E&M: 83938 Subs Hosp L3
[2024-09-21] MEDS: Chlorhexidine 15 ML PO ×2 (10:37→20:48)
[2024-09-21] MEDS: Isosorbide Mononitrate 30 MG Tablet PO (10:38)
[2024-09-21] MEDS: Pantoprazole Sodium 40 MG in 0.9% Normal Saline (100mL MB+) 100 ML 330 MG IV (10:39)
[2024-09-21] MEDS: Furosemide 40 MG/4 ML Vial IV ×2 (10:39→18:37)
[2024-09-21] MEDS: Ceftriaxone 1 GM/50 ML BAG IV (10:45)
[2024-09-21] MEDS: 0.9% Saline Lock 10 ML Syringe IV ×2 (10:55→18:37)
[2024-09-21] MEDS: Metoprolol Tartrate 25 MG Tablet GT ×2 (12:23→22:22)
--- NOTE | 2024-09-21 13:19 | PCM.PN.TICU ---
Objective Data Objective Data Vital Signs: Vital Signs Last response Temperature 38.3 C H 09/21/24 07:00 Temperature Source Core 09/21/24 07:00 Pulse Rate 68 09/21/24 12:56 Pulse Strength Normal (2+) 09/20/24 21:07 Respiratory Rate 16 09/21/24 12:56 Respiratory Effort Mechanically Ventilated 09/21/24 05:00 Respiratory Depth Normal 09/20/24 20:56 Respiratory Pattern Normal 09/21/24 12:56 Blood Pressure 119/53 L 09/21/24 12:23 Blood Pressure Mean 76 09/21/24 07:00 Blood Pressure Source Monitor 09/21/24 07:00 Blood Pressure Position Semi-Fowlers 09/21/24 07:00 Blood Pressure Location Left Arm 09/21/24 07:00 Pulse Ox 96 09/21/24 12:56 Oxygen Delivery Method Mechanical Ventilator 09/21/24 07:00 Oxygen Flow Rate (L/min) 5 09/19/24 09:00 Fraction of Inspired Oxygen (FIO2) 40 09/21/24 12:56 EtCo2 (Normal 35-45 , high quality CPR 10-20 & ROSC>/=40mmHg 36 09/19/24 11:27 I&O: I&O Last 24 Hours 09/20/24 09/21/24 09/21/24 23:59 11:59 23:59 Intake Total 541.80 / 958.37 727.46 / 727.46 Output Total 625 / 2650 1800 / 2375 575 / 2375 Balance -83.20 / -1691.63 -1072.54 / -1647.54 -575 / -1647.54 I&O: Total Stay 09/17/24 16:50 thru 09/21/24 12:00 Intake Total 3177.74 Output Total 8015 Balance -4837.26 Current Meds Ordered / Administered: Current meds ordered / Administered Generic Name Dose Route Start Last Admin Trade Name Freq PRN Reason Stop Dose Admin Acetaminophen 650 mg 09/19/24 19:58 09/20/24 18:20 Acetaminophen 325 Mg Tablet GT 650 mg Q6H PRN PRN Administration Pain 1-5/10 Or Fever>100.7 Albuterol Sulfate 2.5 mg 09/17/24 21:09 Albuterol 2.5 Mg/3 Ml Vial.Neb. INHALATION Q2H PRN PRN SOB &/OR WHEEZING Albuterol/Ipratropium 3 ml 09/18/24 17:06 Ipratropium/Albuterol Sulfate 3 Ml Ampul.Neb INHALATION Q4H.RT PRN SHORTNESS OF BREATH Chlorhexidine Gluconate 15 ml 09/19/24 22:00 09/21/24 10:37 Chlorhexidine 15 Ml PO 15 ml BID CAROL Administration Chlorhexidine Gluconate 1 each 09/20/24 10:00 09/20/24 10:17 Chlorhexidine Gluc 2% Cloth 1 Each [place] TOPICAL Not Given DAILY CRAOL Furosemide 40 mg 09/19/24 08:00 09/21/24 10:39 Furosemide 40 Mg/4 Ml Vial IV 40 mg BIDLX CAROL Administration Protocol Guaifenesin 2 tablet 09/18/24 22:00 09/21/24 10:39 Guaifenesin/D-Methorphan Tab.Sr.12h PO Not Given BID CAROL Heparin Sodium (Porcine) 5,000 unit 09/17/24 22:00 09/21/24 05:47 Heparin Injection (Vial) 5,000 Unit/Ml Vial SC 5,000 unit Q8 CAROL Administration Hydralazine HCl 10 mg 09/18/24 19:04 Hydralazine 20 Mg/Ml Vial IV Q6H PRN PRN SBP GREATER THAN 180 Protocol Hydralazine HCl 10 mg 09/19/24 22:00 09/21/24 04:29 Hydralazine 10 Mg Tablet GT Not Given TID [facility] Protocol Sodium Chloride 500 mls @ 15 mls/hr 09/17/24 21:22 IV .[id number] PRN Saline Flush Sodium Chloride 500 mls @ 15 mls/hr 09/17/24 21:22 IV .[id number] PRN Additional IVPB Infusion Ceftriaxone Sodium 1 gm in 50 mls @ 100 mls/hr 09/18/24 17:05 09/21/24 10:45 Rocephin IV 100 mls/hr Q24 CAROL Administration Norepinephrine Bitartrate 8 mg 250 mls @ 9.375 mls/hr 09/19/24 10:00 09/20/24 13:59 / Sodium Chloride CONT INF Not Given .[id number] [facility] Protocol 5 MCG/MIN Fentanyl 100 mls @ 5 mls/hr 09/19/24 10:30 09/21/24 07:49 CONT INF 125 mcg/hr UD CAROL 12.5 mls/hr Administration Protocol 50 MCG/HR Propofol 1,000 mg in 100 mls @ 3.912 mls/hr 09/19/24 11:00 09/21/24 07:45 Diprivan CONT INF 15 mcg/kg/min .Q12H CAROL 5.9 mls/hr Titration Protocol 10 MCG/KG/MIN Pantoprazole Sodium 40 mg/ 110 mls @ 330 mls/hr 09/19/24 13:15 09/21/24 10:39 Sodium Chloride IV 330 mls/hr Q24 CAROL Administration Sodium Chloride 500 mls @ 15 mls/hr 09/19/24 22:43 IV .[id number] PRN Saline Flush Sodium Chloride 500 mls @ 15 mls/hr 09/19/24 22:43 IV .[id number] PRN Additional IVPB Infusion Enteral Nutritional Formula 1,000 mls @ 55 mls/hr 09/20/24 10:40 09/21/24 05:46 Vital Af 1.2 Jewel Liquid GT 20 mls/hr .[id number] CAROL Administration Isosorbide Mononitrate 30 mg 09/19/24 10:00 09/21/24 10:38 Isosorbide Mononitrate 30 Mg Tablet PO 30 mg DAILY CAROL Administration Protocol Metoprolol Tartrate 25 mg 09/19/24 22:00 09/21/24 12:23 Metoprolol Tartrate 25 Mg Tablet GT 25 mg BID CAROL Administration Protocol Ondansetron HCl 4 mg 09/17/24 21:09 09/18/24 19:33 Ondansetron 4 Mg/2 Ml Vial IV 4 mg Q8H PRN PRN Administration NAUSEA/VOMITING Sodium Chloride 10 - 40 ml 09/17/24 21:22 09/21/24 10:55 0.9% Saline Lock 10 Ml Syringe IV 30 ml UD PRN Administration SALINE FLUSH Sodium Chloride 10 - 40 ml 09/18/24 21:59 0.9% Saline Lock 10 Ml Syringe IV UD PRN SALINE FLUSH Sodium Chloride 10 - 40 ml 09/19/24 22:43 0.9% Saline Lock 10 Ml Syringe IV UD PRN SALINE FLUSH Tamsulosin HCl 0.4 mg 09/17/24 22:35 09/20/24 15:40 Tamsulosin Hcl 0.4 Mg Capsule PO Not Given DAILY@1730 [facility] Lab / Micro Data 09/21/24 05:45 09/21/24 05:45 Labs: Laboratory Results - last 24 hr 09/19/24 12:30: Fl Pathologist Comment Reviewed 09/21/24 05:45: WBC 9.6, RBC 4.44 L, Hgb 12.5 L, Hct 40.0, MCV 90.1, MCH 28.2, MCHC 31.3 L, RDW Std Deviation 51.3 H, RDW Coeff of Agus 15.5 H, Plt Count 164, MPV 10.0, Immature Gran % (Auto) 0.600, Neut % (Auto) 77.5 H, Lymph % (Auto) 13.1 L, [place] % (Auto) 6.1, Eos % (Auto) 2.2, Baso % (Auto) 0.5, Absolute Neuts (auto) 7.4, Absolute Lymphs (auto) 1.25, Nucleated RBC % 0, Sodium 140, Potassium 3.8, Chloride 107, Carbon Dioxide 27.0, Anion Gap 6, BUN 47 H, Creatinine 2.35 H, Estim Creat Clear Calc 26.23, Est GFR (MDRD) Af Amer 36 L, Est GFR (MDRD) Non-Af 29 L, BUN/Creatinine Ratio 20.0, Glucose 99, Calcium 8.1 L Micro: Microbiology 09/19/24 10:28 Sputum, Induced/Lukens Gram Stain - Final 09/19/24 10:28 Sputum, Induced/Lukens Respiratory Culture - Final Culture exhibits no growth. 09/18/24 18:30 Blood Culture (Wb) - Anticubital Right Blood Culture - Preliminary No growth in 48 hours. 09/19/24 12:30 Fluid - Pleural (Lung) Gram Stain - Final 09/19/24 12:30 Fluid - Pleural (Lung) Body Fluid Culture - Preliminary No growth-Final to follow Rhythm Strip Rhythm Strip: Sinus Rhythm Rate: 60 Assessment and Plan . Assessment and plan: HPI Patient seen and examined Chart and data reviewed at length He is sedated, but responds to voice Vasopressors all off MV 7-8 LPM, PIP 24, FiO2 0.4 I/O (-) w/ diuretics No obvious air leak from CT No new pCXR or ABG Low grade fever PE GEN sedated, NAD VS as above HEENT JENIFER NECK supple COR RRR CHEST decreased ABD soft EXT pitting edema SKIN w/d VICENTA grossly NF - sedated ASSESSMENT 1. Acute respiratory failure requiring MV support 2. Decompensated CHF w/ markedly elevated BNP 3. s/p multiple episodes cardio-pulmonary arrest 4. Pleural effusions 5. Right PTX following thoracentesis - s/p right pleural catheter 6. Hypervolemia 7. Renal insufficiency 8. 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 Tobacco use 10. Fever TREATMENT PLAN -MV support -follow FINISH MACHINE TENDER exam -loop diuretics -pleural catheter to suction -follow CX - on ABX -follow renal function -VTE ppx -TF / sq insulin Critical Care Time: 50 min The entirety of this encounter was done via Telemedicine
--- NOTE | 2024-09-21 16:19 | RAD_ITS ---
INDICATION: tube placement EXAMINATION/TECHNIQUE: X-RAY - XR Chest 1 View COMPARISON: 09/20/2024 FINDINGS: LIFE-SUPPORT AND LINES: 1. ET tube is unchanged projecting level of the clavicular heads. 2. NG tube extends into the proximal stomach. Proximal port may be projecting at or slightly above the level of the GE junction. 3. Small caliber RIGHT chest tube without change. 4. No distinct pneumothorax. HEART AND VESSELS: The cardiac silhouette, pulmonary vasculature have normal appearance. No evidence of congestive failure. LUNGS AND PLEURAL SPACES: Lungs are clear. No focal infiltrate, consolidation or effusions. No evidence of pneumothorax. No pulmonary mass is noted. MEDIASTINUM AND HILAR REGIONS: No masses adenopathy noted. No areas of calcification. Visualized upper airway is normal in position. BONY ELEMENTS: No acute bony changes noted. RAD/CXR for Line Placement IMPRESSION: 1. ET tube without change. 2. NG tube projects within the proximal stomach, proximal port may be projecting at or slightly above the GE junction. 3. Small caliber RIGHT chest tube without change. No pneumothorax. 4. Persistent airspace consolidation at the LEFT lung base with only mild improvement. Electronically Signed: Yves Owens MD at 18:42 EST ,
[2024-09-21] MEDS: Propofol 10MG/Ml 1,000 MG/100 ML Bottle 5.9 MG CONT INF (16:27)
--- NOTE | 2024-09-21 16:37 | NURSING ---
pt turned for bed linen change, OET very loose in tube sullivan, sliding in and out several cms. repositioned, RT notified. Tube placement checked and secured by RT, Dr. Peterson notified, CXR/KUB ordered.
--- NOTE | 2024-09-21 19:17 | NURSING ---
all education on chronic illness held till acute illness resolving
[2024-09-22] VITALS (37 sets, daily range): BP systolic 102–162; BP diastolic 48–89; PULSE 53–83; RESP 11–22; TEMP 37.2–38.5; O2SAT 91–100; BMI 21.2; BMI 20.7
[2024-09-22] MEDS: fentaNYL drip 100 ML 12.5 MCG CONT INF ×3 (01:33→20:40)
[2024-09-22] MEDS: CHLORHEXIDINE GLUC 2% CLOTH 1 EACH TOWELETTE TOPICAL (02:44)
[2024-09-22] MEDS: Heparin Injection (Vial) 5,000 UNIT/ML VIAL 5000 UNIT SC ×3 (04:45→21:49)
[2024-09-22] MEDS: Furosemide 100 MG/10 ML Vial 60 MG IV ×3 (04:45→21:48)
[2024-09-22] MEDS: 0.9% Saline Lock 10 ML Syringe IV ×3 (04:46→15:14)
[2024-09-22 04:57] LABS: Absolute Lymphocyte Count 1.25 X10^3/uL (0.83-4.51); Absolute Neutrophil Count 4.3 X10^3/uL (2.0-7.7); Basophil# 0.03 X10^3/uL; Basophil% 0.5 % (0-1); Eosinophil# 0.18 X10^3/uL; Eosinophils% 2.9 % (0-5); Hematocrit 35.9 % (40-54); Hemoglobin 11.3 g/dL (13.0-16.5); Lymphocyte # 1.25 X10^3/ul (0.83-4.51); Lymphocyte % 20.5 % (19-41); Mean Corp Hgb Conc 31.5 g/dL (32-36); Mean Corpuscular Hgb 27.9 pg (27.0-32.0); Mean Corpuscular Volume 88.6 fL (80-94); Mean Platelet Vol. 10.9 fl (6.2-12.0); Monocyte# 0.38 X10^3/uL; Monocyte% 6.2 % (0-10); NRBC Flagged by Analyzer 0 % (0-5); Neutrophil # 4.25 X10^3/uL (2.7-7.7); Neutrophil % 69.6 % (47-70); Platelet Count 128 K/mm3 (150-450); RBC Distribution Width CV 15.4 % (11.6-14.6); RBC Distribution Width SD 50.4 fl (35.1-43.9); Red Blood Count 4.05 M/mm3 (4.6-6.2); White Blood Count 6.1 K/mm3 (4.4-11.0)
[2024-09-22 05:14] LABS: Anion Gap 7 (5-15); BUN 49 mg/dL (7-18); BUN/Creat Ratio 22.4 RATIO (10-20); Calcium,Total 8.1 mg/dL (8.5-10.1); Chloride 105 mmol/L (98-107); Creatinine, Serum 2.19 mg/dL (0.70-1.30); EST Glomerular Filtration Rate 32 mL/min (>60); Est Glom Filt Rate - Afr Amer 39 mL/min (>60); Estimated Creatinine Clearance 28.14 ml/min; Glucose 177 mg/dL (74-106); Potassium 3.7 mmol/L (3.5-5.1); Sodium Level 140 mmol/L (136-145)
--- NOTE | 2024-09-22 05:35 | RAD_ITS ---
EXAM: XR CHEST, 1 VIEW CLINICAL INDICATION: ARF TECHNIQUE: Frontal view of the chest. COMPARISON: Single view chest 09/21/2024 FINDINGS: LUNGS AND PLEURAL SPACES: Mild left basilar airspace disease and small pleural effusion. No pneumothorax. HEART: Unremarkable. Cardiac silhouette not enlarged. MEDIASTINUM: Central airways and mediastinal contour are unremarkable. BONES/JOINTS: Unremarkable. No acute fracture. SOFT TISSUES: Unremarkable. TUBES, LINES AND DEVICES: Stable small right chest tube. Stable endotracheal and enteric tubes. RAD/Chest 1 View (Portable) IMPRESSION: 1. Stable small right chest tube. No residual pneumothorax identified. 2. Mild left basilar airspace disease and small pleural effusion. Findings may indicate atelectasis or infection. Electronically Signed: Mauro Guerra MD at 6:54 EST ,
[2024-09-22] MEDS: Acetaminophen 325 MG Tablet 650 MG GT (06:33)
[2024-09-22] MEDS: Propofol 10MG/Ml 1,000 MG/100 ML Bottle 5.9 MG CONT INF (06:38)
[2024-09-22] MEDS: Vital AF 1.2 Cal Liquid 1,000 ML 55 ML GT (06:51)
[2024-09-22 07:17] LABS: Allen Test Positive; Base Excess 4 mmol/L (-2 to +2); Bicarbonate 27.1 mmol/L (22-26); Blood Gas Specimen Type ART; Mode AC; O2 Delivery Device Adult Vent; PEEP 5; PO2 97 mmHG (75-100); RR 16; SITE R Radial; SO2 98 % (95-99); Total Carbon Dioxide 28 mmol/L; pCO2 35.5 mmHg (35-45); pH 7.49 (7.35-7.45)
--- NOTE | 2024-09-22 09:01 | PN.HOSP_ITS ---
Reason for Visit Reason for Visit: Diagnoses Hyperkalemia (09/17/24) Cardiac arrest, cause unspecified (09/17/24) Heart failure, unspecified (09/17/24) Pleural effusion, not elsewhere classified (09/17/24) Acute respiratory failure with hypoxia (09/17/24) Nephrotic syndrome with unspecified morphologic changes (09/17/24) Acute kidney failure, unspecified (09/17/24) Patent foramen ovale (09/17/24) Bradycardia, unspecified (09/17/24) Other forms of dyspnea (09/17/24) Patient's noncompliance with other medical treatment and regimen due to unspecified reason (09/17/24) Objective Data Objective Data Vital Signs: Vital Signs Temp Pulse Resp BP Pulse Ox O2 Del Method O2 Flow Rate 100.6 F H 63 16 106/48 L 91 Mechanical Ventilator 5 09/22/24 07:00 09/22/24 07:00 09/22/24 07:00 09/22/24 07:00 09/22/24 07:00 09/22/24 07:00 09/19/24 09:00 FiO2 40 09/22/24 07:00 Oxygen Flow Rate (L/min) 5 Oxygen Delivery Method Mechanical Ventilator Weight: 135 lb 5.821 oz Body Mass Index (BMI) 21.2 Intake & Output: Intake and Output for Last 24 Hours 09/20/24 09/21/24 09/22/24 23:59 23:59 23:59 Intake Total 859.47 / 958.37 1929.21 / 1947.61 853.58 / 853.58 Output Total 1300 / 2650 3025 / 3650 1075 / 1075 Balance -440.53 / -1691.63 -1095.79 / -1702.39 -221.42 / -221.42 Lab / Micro Data 09/22/24 04:47 09/22/24 04:47 Labs: Laboratory Results - last 24 hr 09/22/24 04:47: WBC 6.1, RBC 4.05 L, Hgb 11.3 L, Hct 35.9 L, MCV 88.6, MCH 27.9, MCHC 31.5 L, RDW Std Deviation 50.4 H, RDW Coeff of Agus 15.4 H, Plt Count 128 L, MPV 10.9, Immature Gran % (Auto) 0.300, Neut % (Auto) 69.6, Lymph % (Auto) 20.5, [place] % (Auto) 6.2, Eos % (Auto) 2.9, Baso % (Auto) 0.5, Absolute Neuts (auto) 4.3, Absolute Lymphs (auto) 1.25, Nucleated RBC % 0, Sodium 140, Potassium 3.7, Chloride 105, Carbon Dioxide 28.0, Anion Gap 7, BUN 49 H, Creatinine 2.19 H, Estim Creat Clear Calc 28.14, Est GFR (MDRD) Af Amer 39 L, Est GFR (MDRD) Non-Af 32 L, BUN/Creatinine Ratio 22.4 H, Glucose 177 H, Calcium 8.1 L Micro: Microbiology 09/19/24 12:30 Fluid - Pleural (Lung) Gram Stain - Final 09/19/24 12:30 Fluid - Pleural (Lung) Body Fluid Culture - Preliminary No growth-Final to follow 09/19/24 12:30 Fluid - Pleural (Lung) Anaerobic Culture - Preliminary No growth in 48 hours. 09/19/24 10:28 Sputum, Induced/Lukens Gram Stain - Final 09/19/24 10:28 Sputum, Induced/Lukens Respiratory Culture - Final Culture exhibits no growth. 09/18/24 18:30 Blood Culture (Wb) - Anticubital Right Blood Culture - Preliminary No growth in 48 hours. 09/19/24 16:00 Urine Catheter - Catheter Legionella Antigen - Final 09/19/24 16:00 Urine Catheter - Catheter Streptococcus pneumoniae Antigen (M - Final 09/19/24 13:13 Nasal Secretion MRSA (PCR) - Final 09/19/24 13:12 Mucosa - Nasopharyngeal SARS-CoV-2, Influenza & RSV (PCR) - Final 09/18/24 23:38 Stool Clostridioides difficile (PCR) - Final 09/18/24 17:33 Mucosa - Nasopharyngeal Respiratory Panel (PCR) - Final ABG Data ABG results: ABG 09/22/24 07:13 Specimen Type ART Sample Site R Radial pH 7.49 H Bicarbonate Actual 27.1 H Total CO2 28 Base Excess 4 H O2 Saturation 98 O2 % 45.0 ABG pCO2 35.5 ABG pO2 97 Fred Test Positive Respiration Rate 16 O2 Delivery Device Adult Vent Vent Mode AC Tidal Volume 450.0 POC PEEP 5 Radiography Diagnostic Testing: Radiology Impression Chest X-Ray 09/21/24 16:19 IMPRESSION: 1. ET tube without change. 2. NG tube projects within the proximal stomach, proximal port may be projecting at or slightly above the GE junction. 3. Small caliber RIGHT chest tube without change. No pneumothorax. 4. Persistent airspace consolidation at the LEFT lung base with only mild improvement. Electronically Signed: Yves Owens MD at 18:42 EST , Chest X-Ray 09/22/24 05:35 IMPRESSION: 1. Stable small right chest tube. No residual pneumothorax identified. 2. Mild left basilar airspace disease and small pleural effusion. Findings may indicate atelectasis or infection. Electronically Signed: Mauro Guerra MD at 6:54 EST , Rhythm Strip Rhythm Strip: Sinus Rhythm Rate: 60 Physical Exam Narrative Seen and examined in the morning. Discussed the nursing staff. Patient was couple times hypoxic at night transiently and vent settings were changed but patient recovered. Currently on 45% FiO2. Bradycardia heart rate in 50s, regular. Not on vasopressor Physical exam General: intubated and sedated HEENT: Atraumatic, Normocephalic Oral: ET and OG tube Neck: Supple, No JVD, Negative Carotid Bruits Chest wall/Lungs: Air entry diminished in bilateral lung bases. Right small bore chest tube. No air bubbles. Left pleural effusion Cardiovascular: Sinus rhythm, Normal S1, Normal S2, No M/G/R Abdomen: Bowel Sounds Present, Soft, Non Tender, Non-Distended : [place] catheter, 3 L urine output documented. No renal angle tenderness. No suprapubic tenderness. Extremities: 2+ pitting edema, Capillary Refill Less than 3 Seconds Skin: No rashes, No breakdown Musculoskeletal: No Tenderness to Palpation of Joints or Extremities Neurological: DTR 2/4. No acute focal neurological deficit. Psych/Mental Status: Sedated Assessment & Plan Assessment/Plan (1) CHF (congestive heart failure): QUALIFIERS: Heart failure type: unspecified Heart failure chronicity: acute on chronic Qualified Code(s): I50.9 - Heart failure, unspecified (2) Dyspnea on exertion: (3) Hyperkalemia: (4) JAMES (acute kidney injury): (5) Medical non-compliance: PLAN: Plan 69-year-old gentleman was admitted with shortness of breath, bilateral lower extremity swelling for 2 to 3 weeks. He denied cough. 1. AE CHF; cardiac arrest multiple times: Patient is being admitted in PCU. Started on IV bumetanide in and metoprolol 25 mg twice daily. 2D echo shows EF 35%, stage II diastolic dysfunction, severe global hypokinesis, mildly dilated RV. Moderate biatrial dilatation and bubble contrast study positive for PFO. Automatic Vulcanizing Operator is consulted. 09/19: Seen by law writer. Agreed with IV diuretics, furosemide. Low-dose nitrate/hydralazine but patient currently hypotensive on Levophed drip. Patient had second cardiac arrest/CODE BLUE while transferring from CT scan suite. He had bradycardia and then cardiac arrest and then was taken to ED where he was intubated and code leader was Dr. Rivas. 09/20: quality assurance monitor body. Sinus rhythm. 09/21: Not on vasopressor. Sinus rhythm. 09/22: Telegraph Printer Mechanic increase the dose of Lasix 60 mg IV 3 times daily. Patient on third day of vent. No significant improvement. 2. Acute hypoxic respiratory failure from CODE BLUE/cardiac arrest, acute exacerbation of CHF with suspicion of pneumonia: Patient ET Tube cuff burst therefore ET tube needs to be replaced. I went to ICU. Patient was still awake with Zolvit spasm therefore etomidate 20 mg IV given for sedation. Patient on propofol and fentanyl drip. With Bogie tube, ET tube was exchanged under Glydo scope. ET tube was seen passing through the vocal cords and confirmed with color change. ET tube passed on at 22 cm. chest x-ray shows adequate position of chest tube 09/20: Postintubation ABG on 7.43/33.8/17 on 35% FiO2/450/16/. ABG in acceptable range. On vent support. Pleural fluid culture shows WBC and sputum culture shows GPC. Low-grade fever continue broad-spectrum antibiotics ceftriaxone and doxycycline. 09/21: Had 3 times CODE BLUE, First 1 on 09/18/2024 when he was moved to ICU and then to CODE BLUE was on 09/19/2024. 09/22: ABG 7.49/35/97 on 45%/450/16/5. 3. Bilateral pleural effusion with iatrogenic pneumothorax: Patient underwent successful ultrasound-guided thoracocentesis by radiology. 1170 mL clear pleural fluid was drained. Postprocedure chest x-ray shows right-sided pneumothorax therefore bedside small bore chest tube was put in by director alumni relations. 09/20: Small bore chest tube. No air bubbles. I individually reviewed the chest x-ray which shows resolution of Pneumothorax. 09/21: Chest tube no air bubbles on under waterseal. Advised to talk to director alumni relations may be connected to WALL suction 4. Syncope while defecation, vasovagal and CODE BLUE with bilateral pleural effusion and concern for pneumonia: Patient had 6-minute of CODE BLUE in afternoon while defecation in the bathroom. He fell down therefore CT head also ordered. Automatic Vulcanizing Operator and intensive consulted. Earlier VQ scan negative.Ceftriaxone started with lower lung airspace consolidation although clinically less likely pneumonia. Pneumonia workup ordered 09/21: Pleural fluid Gram stain shows no organism yet. Endotracheal culture from 09/19 shows 4+ WBC and rare GPC but culture does not exhibit any growth. Urinary antigens are negative. Continue empiric IV ceftriaxone 3. JAMES with hyperkalemia likely due to urinary retention/cardiorenal disease with solitary Right kidney: Patient potassium improved from 5.7-4.5. Admitting creatinine 1.76 worse from 1.6 on 09/16. Had Kayexalate along with hyperkalemia cocktail. CT abdomen shows no significant prostate enlargement but mild urinary bladder distention. Small to medium ascites. Body wall anasarca. Large bilateral pleural effusion with associated lower lobe predominant airspace disease. Left kidney absent with moderate colonic stool and gas retention. No evidence of bowel obstruction. 09/21: Creatinine is going up, admitting creatinine 1.6-2.35 today. Anesthesiologist Assistant on board. Possible nephrotic syndrome. Proteinuria and hypoalbuminemia. Suspicion of contrast-induced nephropathy related JAMES TOO. Urine output 1800 mL so far. 09/22: BUNs/creatinine 49/2.19. 4. Subclinical Hypothyroidism with elevated TSH of 8.59 but with normal FT4 of 1.08 and normal FT3 of 2.2 on recent admission Thyroid studies should be rechecked in 4-6 weeks. 5. Essential hypertension; on furosemide - metoprolol tartrate 25 mg p.o. twice daily. 6. History of DM-2; currently not on treatment - Check HgbA1c to confirm status. 7. Former tobacco abuse - Noted. 8. Osteoarthritis - Give Tylenol prn. 9. DVT prophylaxis -heparin 5000 units sq TID plus SCD's. Charges/Coding Visit Charges Inpatient E&M: 97688 Subs Hosp L3
[2024-09-22] MEDS: Ipratropium/Albuterol Sulfate 3 ML AMPUL.NEB INHALATION (09:45)
[2024-09-22] MEDS: Chlorhexidine 15 ML PO ×2 (10:18→21:49)
[2024-09-22] MEDS: Ceftriaxone 1 GM/50 ML BAG IV (10:21)
[2024-09-22] MEDS: Pantoprazole Sodium 40 MG in 0.9% Normal Saline (100mL MB+) 100 ML 330 MG IV (10:21)
--- NOTE | 2024-09-22 13:51 | PN.CC_ITS ---
Objective Data Objective Data Vital Signs: Vital Signs Last response 3 Temperature 37.4 C H 09/22/24 13:00 Temperature Source Core 09/22/24 13:00 Pulse Rate 83 09/22/24 13:15 Pulse Strength Normal (2+) 09/21/24 22:00 Respiratory Rate 21 H 09/22/24 13:15 Respiratory Effort Mechanically Ventilated 09/22/24 12:00 Respiratory Depth Normal 09/22/24 12:00 Respiratory Pattern Normal 09/22/24 13:15 Blood Pressure 144/68 H 09/22/24 13:00 Blood Pressure Mean 93 09/22/24 13:00 Blood Pressure Source Monitor 09/22/24 13:00 Blood Pressure Position Semi-Fowlers 09/22/24 13:00 Blood Pressure Location Right Arm 09/22/24 13:00 Pulse Ox 94 09/22/24 13:15 Oxygen Delivery Method Mechanical Ventilator 09/22/24 13:00 Oxygen Flow Rate (L/min) 5 09/19/24 09:00 Fraction of Inspired Oxygen (FIO2) 40 09/22/24 13:15 EtCo2 (Normal 35-45 , high quality CPR 10-20 & ROSC>/=40mmHg 36 09/19/24 11:27 I&O: I&O Last 24 Hours 3 09/21/24 09/22/24 09/22/24 23:59 11:59 23:59 Intake Total 1098.10 / 1947.61 1339.17 / 1474.17 135 / 1474.17 Output Total 1225 / 3650 1075 / 1410 335 / 1410 Balance -126.90 / -1702.39 264.17 / 64.17 -200 / 64.17 I&O: Total Stay 3 09/17/24 16:50 thru 09/22/24 12:38 Intake Total 5853.66 Output Total 24304 Balance -4221.34 Current Meds Ordered / Administered: Current meds ordered / Administered 3 Generic Name Dose Route Start Last Admin Trade Name Freq PRN Reason Stop Dose Admin Acetaminophen 650 mg 09/19/24 19:58 09/22/24 06:33 Acetaminophen 325 Mg Tablet GT 650 mg Q6H PRN PRN Administration Pain 1-5/10 Or Fever>100.7 Albuterol Sulfate 2.5 mg 09/17/24 21:09 Albuterol 2.5 Mg/3 Ml Vial.Neb. INHALATION Q2H PRN PRN SOB &/OR WHEEZING Albuterol/Ipratropium 3 ml 09/18/24 17:06 09/22/24 09:45 Ipratropium/Albuterol Sulfate 3 Ml Ampul.Neb INHALATION 3 ml Q4H.RT PRN Administration SHORTNESS OF BREATH Chlorhexidine Gluconate 15 ml 09/19/24 22:00 09/22/24 10:18 Chlorhexidine 15 Ml PO 15 ml BID CAROL Administration Chlorhexidine Gluconate 1 each 09/20/24 10:00 09/22/24 02:44 Chlorhexidine Gluc 2% Cloth 1 Each Towelette TOPICAL 1 each DAILY CAROL Administration Furosemide 60 mg 09/22/24 06:00 09/22/24 04:45 Furosemide 100 Mg/10 Ml Vial IV 60 mg TID CAROL Administration Protocol Guaifenesin 2 tablet 09/18/24 22:00 09/22/24 10:19 Guaifenesin/D-Methorphan Tab.Sr.12h PO Not Given BID CAROL Heparin Sodium (Porcine) 5,000 unit 09/17/24 22:00 09/22/24 04:45 Heparin Injection (Vial) 5,000 Unit/Ml Vial SC 5,000 unit Q8 CAROL Administration Hydralazine HCl 10 mg 09/18/24 19:04 Hydralazine 20 Mg/Ml Vial IV Q6H PRN PRN SBP GREATER THAN 180 Protocol Hydralazine HCl 10 mg 09/19/24 22:00 09/22/24 04:46 Hydralazine 10 Mg Tablet GT Not Given TID [facility] Protocol Sodium Chloride 500 mls @ 15 mls/hr 09/17/24 21:22 IV .[id number] PRN Saline Flush Sodium Chloride 500 mls @ 15 mls/hr 09/17/24 21:22 IV .[id number] PRN Additional IVPB Infusion Ceftriaxone Sodium 1 gm in 50 mls @ 100 mls/hr 09/18/24 17:05 09/22/24 12:38 Rocephin IV Infused Q24 CAROL Infusion Norepinephrine Bitartrate 8 mg 250 mls @ 9.375 mls/hr 09/19/24 10:00 09/21/24 15:39 / Sodium Chloride CONT INF Not Given .[id number] CAROL Protocol 5 MCG/MIN Fentanyl 100 mls @ 5 mls/hr 09/19/24 10:30 09/22/24 11:30 CONT INF 0 mcg/hr UD CAROL 0 mls/hr Titration Protocol 50 MCG/HR Propofol 1,000 mg in 100 mls @ 3.912 mls/hr 09/19/24 11:00 09/22/24 12:38 Diprivan CONT INF Not Given .Q12H CAROL Protocol 10 MCG/KG/MIN Pantoprazole Sodium 40 mg/ 110 mls @ 330 mls/hr 09/19/24 13:15 09/22/24 10:42 Sodium Chloride IV Infused Q24 CAROL Infusion Sodium Chloride 500 mls @ 15 mls/hr 09/19/24 22:43 IV .[id number] PRN Saline Flush Sodium Chloride 500 mls @ 15 mls/hr 09/19/24 22:43 IV .[id number] PRN Additional IVPB Infusion Enteral Nutritional Formula 1,000 mls @ 55 mls/hr 09/20/24 10:40 09/22/24 10:42 Vital Af 1.2 Jewel Liquid GT 55 mls/hr .[id number] CAROL Infusion Isosorbide Mononitrate 30 mg 09/19/24 10:00 09/22/24 10:18 Isosorbide Mononitrate 30 Mg Tablet PO Not Given DAILY [facility] Protocol Metoprolol Tartrate 25 mg 09/19/24 22:00 09/22/24 10:18 Metoprolol Tartrate 25 Mg Tablet GT Not Given BID CAROL Protocol Ondansetron HCl 4 mg 09/17/24 21:09 09/18/24 19:33 Ondansetron 4 Mg/2 Ml Vial IV 4 mg Q8H PRN PRN Administration NAUSEA/VOMITING Sodium Chloride 10 - 40 ml 09/17/24 21:22 09/22/24 10:22 0.9% Saline Lock 10 Ml Syringe IV 10 ml UD PRN Administration SALINE FLUSH Sodium Chloride 10 - 40 ml 09/18/24 21:59 0.9% Saline Lock 10 Ml Syringe IV UD PRN SALINE FLUSH Sodium Chloride 10 - 40 ml 09/19/24 22:43 0.9% Saline Lock 10 Ml Syringe IV UD PRN SALINE FLUSH Tamsulosin HCl 0.4 mg 09/17/24 22:35 09/21/24 15:39 Tamsulosin Hcl 0.4 Mg Capsule PO Not Given DAILY@1730 [facility] Lab / Micro Data 09/22/24 04:47 09/22/24 04:47 Labs: Laboratory Results - last 24 hr 09/22/24 04:47: WBC 6.1, RBC 4.05 L, Hgb 11.3 L, Hct 35.9 L, MCV 88.6, MCH 27.9, MCHC 31.5 L, RDW Std Deviation 50.4 H, RDW Coeff of Agus 15.4 H, Plt Count 128 L, MPV 10.9, Immature Gran % (Auto) 0.300, Neut % (Auto) 69.6, Lymph % (Auto) 20.5, [place] % (Auto) 6.2, Eos % (Auto) 2.9, Baso % (Auto) 0.5, Absolute Neuts (auto) 4.3, Absolute Lymphs (auto) 1.25, Nucleated RBC % 0, Sodium 140, Potassium 3.7, Chloride 105, Carbon Dioxide 28.0, Anion Gap 7, BUN 49 H, Creatinine 2.19 H, Estim Creat Clear Calc 28.14, Est GFR (MDRD) Af Amer 39 L, Est GFR (MDRD) Non-Af 32 L, BUN/Creatinine Ratio 22.4 H, Glucose 177 H, Calcium 8.1 L Micro: Microbiology 09/19/24 12:30 Fluid - Pleural (Lung) Gram Stain - Final 09/19/24 12:30 Fluid - Pleural (Lung) Body Fluid Culture - Preliminary No growth-Final to follow 09/19/24 12:30 Fluid - Pleural (Lung) Anaerobic Culture - Preliminary No growth in 48 hours. ABG Data ABG results: ABG 09/22/24 07:13 Specimen Type ART Sample Site R Radial pH 7.49 H Bicarbonate Actual 27.1 H Total CO2 28 Base Excess 4 H O2 Saturation 98 O2 % 45.0 ABG pCO2 35.5 ABG pO2 97 Fred Test Positive Respiration Rate 16 O2 Delivery Device Adult Vent Vent Mode AC Tidal Volume 450.0 POC PEEP 5 Rhythm Strip Rhythm Strip: Sinus Rhythm Rate: 60 Imaging Radiology Impression Chest X-Ray 09/21/24 16:19 IMPRESSION: 1. ET tube without change. 2. NG tube projects within the proximal stomach, proximal port may be projecting at or slightly above the GE junction. 3. Small caliber RIGHT chest tube without change. No pneumothorax. 4. Persistent airspace consolidation at the LEFT lung base with only mild improvement. Electronically Signed: Yves Owens MD at 18:42 EST , Chest X-Ray 09/22/24 05:35 IMPRESSION: 1. Stable small right chest tube. No residual pneumothorax identified. 2. Mild left basilar airspace disease and small pleural effusion. Findings may indicate atelectasis or infection. Electronically Signed: Mauro Guerra MD at 6:54 EST , Assessment and Plan . Assessment and plan: HPI Patient seen and examined Chart and data reviewed at length He is awake and alert during SAT Vasopressors all off MV 7-8 LPM, PIP 21, FiO2 0.4 I/O (-) w/ diuretics No obvious air leak from CT pCXR and ABG reviewed Low grade fever - CX NGTD PE GEN NAD VS as above HEENT JENIFER NECK supple COR RRR CHEST decreased ABD soft EXT pitting edema SKIN w/d VICENTA grossly NF ASSESSMENT 1. Acute respiratory failure requiring MV support 2. Decompensated CHF w/ markedly elevated BNP 3. s/p multiple episodes cardio-pulmonary arrest 4. Pleural effusions 5. Right PTX following thoracentesis - s/p right pleural catheter 6. Hypervolemia 7. Renal insufficiency 8. 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 Tobacco use 10. Fever 11. Hyperglycemia TREATMENT PLAN -MV support - given recent cardiac episodes, will hold off on extubation until staff on-site available for possible need for re-intubation -follow C[employer]ARETTE TESTER exam - IN TACT -loop diuretics -pleural catheter to suction until extubated -follow CX - on ABX -follow renal function daily -VTE ppx -TF / sq insulin Critical Care Time: 50 min The entirety of this encounter was done via Telemedicine
--- NOTE | 2024-09-22 15:31 | NURSING ---
education re chronic illness deferred till acute illness resolving
[2024-09-22] MEDS: Polyethylene Glycol 3350 17 GM PACKET NG ×2 (17:23→21:48)
[2024-09-22] MEDS: Insulin Lispro 100 UNIT/ML INSULN.PEN SC (17:50)
[2024-09-22 18:06] LABS: Bedside Glucose 202 mg/dL (74-106)
[2024-09-23] VITALS (32 sets, daily range): BP systolic 120–157; BP diastolic 49–83; PULSE 56–79; RESP 12–35; TEMP 37.1–38.1; O2SAT 94–100; BMI 21.1
[2024-09-23] MEDS: Propofol 10MG/Ml 1,000 MG/100 ML Bottle 5.9 MG CONT INF
[2024-09-23 00:25] LABS: Bedside Glucose 137 mg/dL (74-106)
[2024-09-23] MEDS: fentaNYL drip 100 ML 12.5 MCG CONT INF (04:00)
[2024-09-23 04:10] LABS: Absolute Lymphocyte Count 1.12 X10^3/uL (0.83-4.51); Basophil# 0.01 X10^3/uL; Basophil% 0.2 % (0-1); Eosinophils% 5.1 % (0-5); Hematocrit 35.2 % (40-54); Lymphocyte # 1.12 X10^3/ul (0.83-4.51); Lymphocyte % 18.9 % (19-41); Mean Corp Hgb Conc 31.3 g/dL (32-36); Mean Corpuscular Volume 89.6 fL (80-94); Mean Platelet Vol. 10.4 fl (6.2-12.0); Monocyte# 0.51 X10^3/uL; Monocyte% 8.6 % (0-10); NRBC Flagged by Analyzer 0 % (0-5); Neutrophil # 3.97 X10^3/uL (2.7-7.7); Neutrophil % 66.7 % (47-70); Platelet Count 158 K/mm3 (150-450); RBC Distribution Width CV 15.3 % (11.6-14.6); RBC Distribution Width SD 49.6 fl (35.1-43.9); Red Blood Count 3.93 M/mm3 (4.6-6.2); White Blood Count 5.9 K/mm3 (4.4-11.0)
[2024-09-23] MEDS: Vital AF 1.2 Cal Liquid 1,000 ML 55 ML GT (04:30)
[2024-09-23] MEDS: CHLORHEXIDINE GLUC 2% CLOTH 1 EACH TOWELETTE TOPICAL (04:30)
[2024-09-23 04:37] LABS: Anion Gap 7 (5-15); BUN 50 mg/dL (7-18); BUN/Creat Ratio 27.2 RATIO (10-20); Calcium,Total 8.3 mg/dL (8.5-10.1); Chloride 103 mmol/L (98-107); Creatinine, Serum 1.84 mg/dL (0.70-1.30); EST Glomerular Filtration Rate 39 mL/min (>60); Est Glom Filt Rate - Afr Amer 47 mL/min (>60); Estimated Creatinine Clearance 32.16 ml/min; Glucose 160 mg/dL (74-106); Potassium 3.9 mmol/L (3.5-5.1); Sodium Level 139 mmol/L (136-145)
[2024-09-23] MEDS: Insulin Lispro 100 UNIT/ML INSULN.PEN SC (06:22)
[2024-09-23] MEDS: Furosemide 100 MG/10 ML Vial 60 MG IV ×2 (06:22→14:15)
[2024-09-23] MEDS: Heparin Injection (Vial) 5,000 UNIT/ML VIAL 5000 UNIT SC ×3 (06:22→21:22)
--- NOTE | 2024-09-23 07:12 | PCM.PN.HOSP ---
Reason for Visit Reason for Visit: Diagnoses Hyperkalemia (09/17/24) Cardiac arrest, cause unspecified (09/17/24) Heart failure, unspecified (09/17/24) Pleural effusion, not elsewhere classified (09/17/24) Acute respiratory failure with hypoxia (09/17/24) Nephrotic syndrome with unspecified morphologic changes (09/17/24) Acute kidney failure, unspecified (09/17/24) Patent foramen ovale (09/17/24) Bradycardia, unspecified (09/17/24) Other forms of dyspnea (09/17/24) Patient's noncompliance with other medical treatment and regimen due to unspecified reason (09/17/24) Subjective Subjective extubated today. complaining of anterior chest pain and a sore throat. Objective Data Objective Data Vital Signs: Vital Signs Temp Pulse Resp BP Pulse Ox O2 Del Method O2 Flow Rate 37.3 C H 64 12 128/59 H 98 Mechanical Ventilator 5 09/23/24 06:00 09/23/24 07:03 09/23/24 07:03 09/23/24 06:00 09/23/24 07:03 09/23/24 06:00 09/19/24 09:00 FiO2 30 09/23/24 07:03 Oxygen Flow Rate (L/min) 5 Oxygen Delivery Method Mechanical Ventilator Weight: 61 kg Body Mass Index (BMI) 21.1 Intake & Output: Intake and Output for Last 24 Hours 09/21/24 09/22/24 09/23/24 23:59 23:59 23:59 Intake Total 1929.21 / 1947.61 2141.02 / 2244.42 1087.05 / 1087.05 Output Total 3025 / 3650 2435 / 2836 1002 / 1002 Balance -1095.79 / -1702.39 -293.98 / -591.58 85.05 / 85.05 Lab / Micro Data 09/23/24 04:00 09/23/24 04:00 Labs: Laboratory Results - last 24 hr 09/22/24 17:44: POC Glucose 202 H 09/22/24 23:49: POC Glucose 137 H 09/23/24 04:00: WBC 5.9, RBC 3.93 L, Hgb 11.0 L, Hct 35.2 L, MCV 89.6, MCH 28.0, MCHC 31.3 L, RDW Std Deviation 49.6 H, RDW Coeff of Agus 15.3 H, Plt Count 158, MPV 10.4, Immature Gran % (Auto) 0.500, Neut % (Auto) 66.7, Lymph % (Auto) 18.9 L, [place] % (Auto) 8.6, Eos % (Auto) 5.1 H, Baso % (Auto) 0.2, Absolute Neuts (auto) 4.0, Absolute Lymphs (auto) 1.12, Nucleated RBC % 0, Sodium 139, Potassium 3.9, Chloride 103, Carbon Dioxide 30.0, Anion Gap 7, BUN 50 H, Creatinine 1.84 H, Estim Creat Clear Calc 32.16, Est GFR (MDRD) Af Amer 47 L, Est GFR (MDRD) Non-Af 39 L, BUN/Creatinine Ratio 27.2 H, Glucose 160 H, Calcium 8.3 L Micro: Microbiology 09/19/24 12:30 Fluid - Pleural (Lung) Gram Stain - Final 09/19/24 12:30 Fluid - Pleural (Lung) Body Fluid Culture - Preliminary No growth-Final to follow 09/19/24 12:30 Fluid - Pleural (Lung) Anaerobic Culture - Preliminary No growth in 48 hours. 09/19/24 10:28 Sputum, Induced/Lukens Gram Stain - Final 09/19/24 10:28 Sputum, Induced/Lukens Respiratory Culture - Final Culture exhibits no growth. 09/18/24 18:30 Blood Culture (Wb) - Anticubital Right Blood Culture - Preliminary No growth in 48 hours. 09/19/24 16:00 Urine Catheter - Catheter Legionella Antigen - Final 09/19/24 16:00 Urine Catheter - Catheter Streptococcus pneumoniae Antigen (M - Final 09/19/24 13:13 Nasal Secretion MRSA (PCR) - Final 09/19/24 13:12 Mucosa - Nasopharyngeal SARS-CoV-2, Influenza & RSV (PCR) - Final 09/18/24 23:38 Stool Clostridioides difficile (PCR) - Final 09/18/24 17:33 Mucosa - Nasopharyngeal Respiratory Panel (PCR) - Final ABG Data ABG results: ABG 09/22/24 07:13 Specimen Type ART Sample Site R Radial pH 7.49 H Bicarbonate Actual 27.1 H Total CO2 28 Base Excess 4 H O2 Saturation 98 O2 % 45.0 ABG pCO2 35.5 ABG pO2 97 Fred Test Positive Respiration Rate 16 O2 Delivery Device Adult Vent Vent Mode AC Tidal Volume 450.0 POC PEEP 5 Rhythm Strip Rhythm Strip: Sinus Rhythm Rate: 60 Physical Exam Const alert and no apparent distress Constitutional Narrative: up in bed. weak voice. non-toxic. HEENT head/scalp atraumatic and moist oral mucous membranes Resp normal respiratory effort, no retractions, no use of accessory muscles and clear to auscultation bilaterally Cardio regular rate, regular rhythm, S1 normal heart sound and S2 normal heart sound GI normal to inspection, nondistended, normoactive bowel sounds, soft to palpation, non-tender and non-distended Neuro Sensorium / Orientation: awake and alert Assessment & Plan Assessment/Plan (1) CHF (congestive heart failure): QUALIFIERS: Heart failure chronicity: acute on chronic Heart failure type: unspecified Qualified Code(s): I50.9 - Heart failure, unspecified (2) Dyspnea on exertion: (3) Hyperkalemia: (4) JAMES (acute kidney injury): (5) Medical non-compliance: PLAN: Plan Cardiac arrest occurred on 09/18. Bradycardia then PEA noted. Had successful ROSC after 6 minutes of high-quality CPR. Cardiology felt bradyarrhythmia may have been related vasovagal event from having a BM. Had another event on 09/[address] scan. Again, noted bradycardia and PEA. Intubated by Dr. Rivas. Had successful ROSC. Another code blue was called on the , but no note of CPR, this may have been called due to burst cuff on ETT that was replaced. Acute HFrEF EF 35% on furosemide 60 TID. Metoprolol tartrate 25 BID. No ACEi/ARB given JAMES, so he is on isosorbide and hydralazine. With pleural effusions s/p thoracentesis. Acute hypoxic respiratory failure intubated on 09/19 during cardiac arrest. extubated 09/23 on empiric abx with CTX for possible pneumonia Iatrogenic pneumothorax thoracentesis on 09/19, then chest tube placed same day. pulmonary managing chest tube. JAMES improving nephrology following no need for RESEARCH ATTORNEY Chronic conditions: BPH: tamsulosin VTE prophylaxis: SQ heparin. Charges/Coding Visit Charges Inpatient E&M: 34749 Subs Hosp L2
[2024-09-23] MEDS: Pantoprazole Sodium 40 MG in 0.9% Normal Saline (100mL MB+) 100 ML 330 MG IV (07:38)
[2024-09-23] MEDS: Polyethylene Glycol 3350 17 GM PACKET NG (07:38)
[2024-09-23] MEDS: Ceftriaxone 1 GM/50 ML BAG IV (07:39)
[2024-09-23] MEDS: Chlorhexidine 15 ML PO (07:39)
[2024-09-23] MEDS: Metoprolol Tartrate 25 MG Tablet GT (07:56)
[2024-09-23] MEDS: Isosorbide Mononitrate 30 MG Tablet PO (07:56)
[2024-09-23 08:14] LABS: Bedside Glucose 154 mg/dL (74-106)
--- NOTE | 2024-09-23 08:52 | PCM.PN.INT ---
Assessment & Plan Assessment/Plan (1) Acute hypoxemic respiratory failure: (2) Bilateral pleural effusion: (3) Cardiopulmonary arrest with successful resuscitation: PLAN: Plan RECOMMENDATIONS: 1. Proceed with a trial of extubation this morning. 2. Once extubated, wean supplemental oxygen to maintain saturations at or above 90%. 3. Formal swallow evaluation prior to advancement of diet. 4. Continue chest tube to wall suction today. Obtain follow-up chest x-ray tomorrow. 5. Continue ongoing diuresis as tolerated by hemodynamics and renal function. 6. Antibiotics can be discontinued from my perspective. 7. Encourage incentive spirometer use and mobilize patient as tolerated. IMPRESSIONS: 1. Acute hypoxemic respiratory failure status post PEA cardiac arrest x 3 Clinical concern for underlying decompensated heart failure is main precipitating etiology. The patient has large bilateral pleural effusions, which are transudative in nature and likely related to the patient's CHF. The patient was ultimately intubated after sustaining a PEA cardiac arrest. Recommend continuing goal-directed medical therapy per cardiology recommendations, along with diuresis as tolerated by hemodynamics and renal function. The patient underwent ultrasound-guided thoracentesis on September 19, which was complicated by iatrogenic pneumothorax requiring chest tube placement. The patient has improved from a respiratory perspective and did well with a spontaneous breathing trial this morning. Therefore, we will plan to proceed with a trial of extubation. Once extubated, wean supplemental oxygen to maintain saturations at or above 90%. Recommend swallow evaluation prior to advancement of diet. 2. Acute decompensated heart failure Continue medical management per cardiology recommendations. 3. Iatrogenic pneumothorax Continue chest tube to wall suction. Obtain follow-up chest x-ray in the morning. If no residual pneumothorax is noted, we will plan to place chest tube to waterseal. 4. Acute kidney injury Improving. Underlying nephrotic syndrome is suspected in the setting of diabetic nephropathy with acute decompensation likely precipitated by hypotension in the setting of cardiac arrest and contrast administration. Nephrology is currently following to assist with medical management. Continue ongoing diuresis as tolerated by hemodynamics and renal function. 5. History of tobacco dependency/hypertension/diabetes mellitus Complicates care, management, recovery and prognosis. Continue to hold home medications for now. Physical therapy to work with the patient. TIME: 33 minutes of critical care time, independent of procedures, was spent addressing the patient's acute hypoxemic respiratory failure, PEA cardiac arrest, acute decompensated heart failure, acute kidney injury, review of all data and collaboration with the care team. Subjective Subjective The patient was seen and examined at the bedside this morning. Events from the last 24 hours have been reviewed. The patient currently has a low-grade fever but remains otherwise hemodynamically stable on assist-control mode of mechanical ventilation with an FiO2 requirement of 30% and PEEP of 5. The patient is currently on a spontaneous awakening trial. He is alert and able to follow simple commands. Accordingly, the patient was placed on a spontaneous breathing trial, which he tolerated without issue. Therefore, the patient was extubated. White blood cell count remains normal this morning. Hemoglobin and platelet count are stable. Creatinine is improved at 1.84. Objective Data Objective Data The patient's most recent lab work, culture data and imaging studies have all been personally reviewed. Surface echocardiogram demonstrated a mildly dilated LV with severe global hypokinesis and an ejection fraction of 35%. Stage II diastolic dysfunction was noted. Bubble contrast study was positive for a PFO. Pulmonary artery systolic pressure was estimated to be 45 mmHg. Lower extremity Doppler study was negative for DVT. Infectious workup has been unrevealing to date. Vital Signs: Vital Signs Temp Pulse Resp BP Pulse Ox O2 Del Method O2 Flow Rate 99.6 F H 78 24 H 132/57 H 99 Mechanical Ventilator 5 09/23/24 07:00 09/23/24 08:41 09/23/24 08:41 09/23/24 07:00 09/23/24 08:41 09/23/24 07:00 09/19/24 09:00 FiO2 30 09/23/24 07:03 Oxygen Flow Rate (L/min) 5 Oxygen Delivery Method Mechanical Ventilator Weight: 134 lb 7.712 oz Body Mass Index (BMI) 21.1 Intake & Output: Intake and Output for Last 24 Hours 09/21/24 09/22/24 09/23/24 23:59 23:59 23:59 Intake Total 1929.21 / 1947.61 2141.02 / 2244.42 1477.58 / 1477.58 Output Total 3025 / 3650 2435 / 2836 1002 / 1002 Balance -1095.79 / -1702.39 -293.98 / -591.58 475.58 / 475.58 Lab / Micro Data Attestation: I reviewed the patient's lab results. 09/23/24 04:00 09/23/24 04:00 Labs: Laboratory Results - last 24 hr 09/19/24 12:30: Miscellaneous Cytology SEE PATHOLOGY REPORT 09/22/24 17:44: POC Glucose 202 H 09/22/24 23:49: POC Glucose 137 H 09/23/24 04:00: WBC 5.9, RBC 3.93 L, Hgb 11.0 L, Hct 35.2 L, MCV 89.6, MCH 28.0, MCHC 31.3 L, RDW Std Deviation 49.6 H, RDW Coeff of Agus 15.3 H, Plt Count 158, MPV 10.4, Immature Gran % (Auto) 0.500, Neut % (Auto) 66.7, Lymph % (Auto) 18.9 L, [place] % (Auto) 8.6, Eos % (Auto) 5.1 H, Baso % (Auto) 0.2, Absolute Neuts (auto) 4.0, Absolute Lymphs (auto) 1.12, Nucleated RBC % 0, Sodium 139, Potassium 3.9, Chloride 103, Carbon Dioxide 30.0, Anion Gap 7, BUN 50 H, Creatinine 1.84 H, Estim Creat Clear Calc 32.16, Est GFR (MDRD) Af Amer 47 L, Est GFR (MDRD) Non-Af 39 L, BUN/Creatinine Ratio 27.2 H, Glucose 160 H, Calcium 8.3 L 09/23/24 06:21: POC Glucose 154 H Micro: Microbiology 09/19/24 12:30 Fluid - Pleural (Lung) Gram Stain - Final 09/19/24 12:30 Fluid - Pleural (Lung) Body Fluid Culture - Preliminary No growth-Final to follow 09/19/24 12:30 Fluid - Pleural (Lung) Anaerobic Culture - Preliminary No growth in 48 hours. 09/19/24 10:28 Sputum, Induced/Lukens Gram Stain - Final 09/19/24 10:28 Sputum, Induced/Lukens Respiratory Culture - Final Culture exhibits no growth. 09/18/24 18:30 Blood Culture (Wb) - Anticubital Right Blood Culture - Preliminary No growth in 48 hours. 09/19/24 16:00 Urine Catheter - Catheter Legionella Antigen - Final 09/19/24 16:00 Urine Catheter - Catheter Streptococcus pneumoniae Antigen (M - Final 09/19/24 13:13 Nasal Secretion MRSA (PCR) - Final 09/19/24 13:12 Mucosa - Nasopharyngeal SARS-CoV-2, Influenza & RSV (PCR) - Final 09/18/24 23:38 Stool Clostridioides difficile (PCR) - Final 09/18/24 17:33 Mucosa - Nasopharyngeal Respiratory Panel (PCR) - Final ABG Data ABG results: ABG 09/19/24 10:47 Specimen Type ART Sample Site L Radial pH 7.43 Bicarbonate Actual 22.6 Total CO2 24 Base Excess -2 O2 Saturation 95 O2 % 35.0 ABG pCO2 33.8 L ABG pO2 70 L Fred Test Positive Respiration Rate 16 O2 Delivery Device Adult Vent Vent Mode AC Tidal Volume 450.0 POC PEEP 5 Radiography Diagnostic Testing: Radiology Impression Chest CTA 09/19/24 08:56 IMPRESSION: No evidence of pulmonary embolism. Large bilateral pleural effusions right greater than left with bibasilar compressive atelectasis. Coronary artery calcification. Electronically Signed: Robert Campos MD at 10:03 EST , Chest X-Ray 09/19/24 09:46 IMPRESSION: The tip of the endotracheal tube is at the origin of the right mainstem bronchus. It should be pulled back 2 cm. Bilateral pleural effusions right greater than left with bibasilar atelectasis and/or infiltrates. Electronically Signed: Robert Campos MD at 10:21 EST , Chest X-Ray 09/19/24 09:55 IMPRESSION: The tip of the endotracheal tube is now at 2.3 cm proximal to the rafia. The remainder of the examination is unchanged. Electronically Signed: Robert Campos MD at 10:22 EST , Chest X-Ray 09/19/24 11:44 IMPRESSION: The tip of the endotracheal tube is at 3.2 cm proximal to the rafia. The remainder of the examination is unchanged. Electronically Signed: Robert Campos MD at 12:07 EST , Chest X-Ray 09/19/24 13:15 IMPRESSION: Status post right thoracentesis. 5-10% right pneumothorax. The right pleural effusion has resolved. Residual pleural parenchymal changes at the left lung base. Electronically Signed: Robert Campos MD at 13:28 EST , Renal Ultrasound 09/19/24 13:16 IMPRESSION: Trace amount of perinephric fluid around the right kidney. There is no hydronephrosis. The patient status post left nephrectomy. Electronically Signed: Adalid Holt MD at 16:52 EST , Chest X-Ray 09/19/24 13:37 IMPRESSION: Status post placement of a small-caliber right-sided chest tube with the tip at the right lung apex. No evidence of pneumothorax at this time. Electronically Signed: Robert Campos MD at 14:17 EST , Rhythm Strip Rhythm Strip: Sinus Rhythm Rate: 60 Physical Exam Const Constitutional Narrative: Remains intubated and mechanically ventilated. General Appearance: patient mechanically ventilated HEENT normocephalic and head/scalp atraumatic Mouth: endotracheal tube in place and OG tube in place Eyes PERRL, EOMs intact bilaterally and conjunctivae normal Neck supple General: trachea midline Chest inspection of chest normal Chest Narrative: No airleak noted in the patient's Pleur-evac. Chest: chest tube Resp Auscultation: diminished lung sounds Cardio regular rate and regular rhythm GI normal to inspection, nondistended, normoactive bowel sounds Extremity General Extremity: edema; Negative for clubbing Skin no rashes or lesions noted Neuro Neuro Narrative: Alert and able to follow simple commands. Charges/Coding Procedures Hospitalists Procedures: [id number] Critical Care 1st Hr
--- NOTE | 2024-09-23 11:08 | PCM.PN.REN ---
Subjective Subjective Following for JAMES on CKD. The patient was just extubated earlier today. He denies chest pain or dyspnea at rest. He denies nausea or vomiting. He has dry cough. Patient complains of thirst. Objective Data Objective Data Vital Signs: Vital Signs Temp Pulse Resp BP Pulse Ox O2 Del Method O2 Flow Rate 100.5 F H 68 18 139/83 H 98 Nasal Cannula 2 09/23/24 10:00 09/23/24 10:08 09/23/24 10:08 09/23/24 10:00 09/23/24 10:08 09/23/24 10:08 09/23/24 10:08 FiO2 30 09/23/24 09:00 Oxygen Flow Rate (L/min) 2 Oxygen Delivery Method Nasal Cannula Weight: 61 kg Body Mass Index (BMI) 21.1 Intake & Output: Intake and Output for Last 24 Hours 09/21/24 09/22/24 09/23/24 23:59 23:59 23:59 Intake Total 1929.21 / 1947.61 2141.02 / 2244.42 1562.58 / 1562.58 Output Total 3025 / 3650 2435 / 2836 2152 / 2152 Balance -1095.79 / -1702.39 -293.98 / -591.58 -589.42 / -589.42 Lab / Micro Data 09/24/24 07:20 09/24/24 07:20 Labs: Laboratory Results - last 24 hr 09/19/24 12:30: Miscellaneous Cytology SEE PATHOLOGY REPORT 09/22/24 17:44: POC Glucose 202 H 09/22/24 23:49: POC Glucose 137 H 09/23/24 04:00: WBC 5.9, RBC 3.93 L, Hgb 11.0 L, Hct 35.2 L, MCV 89.6, MCH 28.0, MCHC 31.3 L, RDW Std Deviation 49.6 H, RDW Coeff of Agus 15.3 H, Plt Count 158, MPV 10.4, Immature Gran % (Auto) 0.500, Neut % (Auto) 66.7, Lymph % (Auto) 18.9 L, [place] % (Auto) 8.6, Eos % (Auto) 5.1 H, Baso % (Auto) 0.2, Absolute Neuts (auto) 4.0, Absolute Lymphs (auto) 1.12, Nucleated RBC % 0, Sodium 139, Potassium 3.9, Chloride 103, Carbon Dioxide 30.0, Anion Gap 7, BUN 50 H, Creatinine 1.84 H, Estim Creat Clear Calc 32.16, Est GFR (MDRD) Af Amer 47 L, Est GFR (MDRD) Non-Af 39 L, BUN/Creatinine Ratio 27.2 H, Glucose 160 H, Calcium 8.3 L 09/23/24 06:21: POC Glucose 154 H Micro: Microbiology 09/18/24 23:38 Stool Ova and Parasites - Final 09/19/24 12:30 Fluid - Pleural (Lung) Gram Stain - Final 09/19/24 12:30 Fluid - Pleural (Lung) Body Fluid Culture - Final Culture exhibits no growth. 09/19/24 12:30 Fluid - Pleural (Lung) Anaerobic Culture - Preliminary No growth in 48 hours. 09/19/24 10:28 Sputum, Induced/Lukens Gram Stain - Final 09/19/24 10:28 Sputum, Induced/Lukens Respiratory Culture - Final Culture exhibits no growth. 09/18/24 18:30 Blood Culture (Wb) - Anticubital Right Blood Culture - Preliminary No growth in 48 hours. 09/19/24 16:00 Urine Catheter - Catheter Legionella Antigen - Final 09/19/24 16:00 Urine Catheter - Catheter Streptococcus pneumoniae Antigen (M - Final 09/19/24 13:13 Nasal Secretion MRSA (PCR) - Final 09/19/24 13:12 Mucosa - Nasopharyngeal SARS-CoV-2, Influenza & RSV (PCR) - Final 09/18/24 23:38 Stool Clostridioides difficile (PCR) - Final 09/18/24 17:33 Mucosa - Nasopharyngeal Respiratory Panel (PCR) - Final Rhythm Strip Rhythm Strip: Sinus Rhythm Rate: 60 Physical Exam Narrative General appearance: Ill-appearing. HEENT: Normocephalic, atraumatic. Mucous membrane dry. Cardiovascular: Normal S1, S2. Lungs: Diffuse expiratory wheeze. Abdomen: Normal bowel sounds, soft, nontender. Extremities: No clubbing, cyanosis or edema. Assessment & Plan Assessment/Plan (1) JAMES (acute kidney injury): (2) Congestive heart failure: (3) Hyperkalemia: PLAN: Plan Impression/Plan: The patient is a 69-year-old male with past history of type 2 diabetes mellitus, hypertension, HFrEF (EF 35%), hypothyroidism, and osteoarthritis. The patient presented to the hospital on 09/16/2024 with bradycardia and PEA arrest. The patient was also found to have decompensated systolic heart failure along with acute hypoxic respiratory failure requiring ventilation. Patient has clinically improved and was extubated on 09/23/2024. Nephrology is following for acute kidney injury. Acute kidney injury. Baseline renal function is unknown. Patient presented to hospital with serum creatinine of 1.60 mg/dL on 09/16/2024. I suspect JAMES secondary to ischemic ATN related to decreased effective blood volume related to PEA arrest and heart failure. So far, serum creatinine has peaked at 2.35 mg/dL on 09/21/2024. Renal function has improved with supportive care and treatment of heart failure. Serum creatinine has decreased from 2.35 mg/dL on 09/21/2024 down to 1.84 mg/dL today on 09/23/2024. Continue current supportive care, keeping MAP above 65 mmHg. Patient does not appear to be overtly volume overloaded, so I would recommend decreasing furosemide to 60 mg twice daily rather than 3 times daily. We will continue to monitor renal function, volume status, acid-base and electrolytes. Nephrology plan was discussed with Dr. Holder
[2024-09-23 11:36] LABS: Bedside Glucose 120 mg/dL (74-106)
[2024-09-23] MEDS: NYSTATIN 500,000 UNIT/5 ML UDC 500000 UNIT PO ×3 (14:17→21:21)
--- NOTE | 2024-09-23 16:47 | CASEMGMT ---
Social Work- SW met with pt to discuss HCPOA. Pt reports that he does not want to complete or name someone at this time. SW remains available to follow. MATTEO Morales
[2024-09-23 18:11] LABS: Bedside Glucose 125 mg/dL (74-106)
--- NOTE | 2024-09-23 18:34 | NURSING ---
weaned patient to room air, O2 sats dropping to 86%, placed back on 1L NC
[2024-09-24] VITALS (14 sets, daily range): BP systolic 132–152; BP diastolic 60–95; PULSE 71–81; RESP 12–29; TEMP 36.9–38.1; O2SAT 88–100; BMI 19.5
[2024-09-24 00:50] LABS: Bedside Glucose 105 mg/dL (74-106)
--- NOTE | 2024-09-24 05:00 | RAD_ITS ---
STUDY: X-RAY CHEST REASON FOR EXAM: Male, 69 years old. PTX TECHNIQUE: Single AP portable view of the chest. COMPARISON: Comparison is made with prior study dated September 22, 2024. FINDINGS: The endotracheal tube and the orogastric tube have been removed. A small caliber chest tube is once again seen with the tip in the right lung apex. No evidence of pneumothorax. Mild residual changes at the left lung base suggestive bibasilar atelectasis. Blunting of both costophrenic angles. Normal size heart. Normal mediastinum and carissa. Normal visualized pulmonary arteries. Normal visualized aortic arch and descending thoracic aorta. Normal visualized thoracic spine. Normal visualized ribs, clavicles, and shoulders. There is no demonstrated abnormality of the visualized soft tissue structures of the upper abdomen. RAD/Chest 1 View (Portable) IMPRESSION: No evidence of pneumothorax. Mild residual bibasilar atelectasis and blunting of both costophrenic angles. The endotracheal tube and nasogastric tube have been removed. Electronically Signed: Robert Campos MD at 8:17 EST ,
[2024-09-24] MEDS: Heparin Injection (Vial) 5,000 UNIT/ML VIAL 5000 UNIT SC ×3 (05:42→20:19)
[2024-09-24 06:24] LABS: Bedside Glucose 90 mg/dL (74-106)
--- NOTE | 2024-09-24 06:55 | PN.HOSP_ITS ---
Reason for Visit Reason for Visit: Diagnoses Hyperkalemia (09/17/24) Cardiac arrest, cause unspecified (09/17/24) Heart failure, unspecified (09/17/24) Pleural effusion, not elsewhere classified (09/17/24) Acute respiratory failure with hypoxia (09/17/24) Nephrotic syndrome with unspecified morphologic changes (09/17/24) Acute kidney failure, unspecified (09/17/24) Patent foramen ovale (09/17/24) Bradycardia, unspecified (09/17/24) Other forms of dyspnea (09/17/24) Patient's noncompliance with other medical treatment and regimen due to unspecified reason (09/17/24) Subjective Subjective Upset about getting poked with needles, upset about being in bed. Upset about his situation. Objective Data Objective Data Vital Signs: Vital Signs Temp Pulse Resp BP Pulse Ox O2 Del Method O2 Flow Rate 38.0 C H 77 27 H 144/71 H 99 Nasal Cannula 1 09/24/24 04:00 09/24/24 06:00 09/24/24 06:00 09/24/24 06:00 09/24/24 06:00 09/24/24 06:00 09/24/24 06:00 FiO2 21 09/23/24 20:00 Oxygen Flow Rate (L/min) 1 Oxygen Delivery Method Nasal Cannula Weight: 56.4 kg Body Mass Index (BMI) 19.5 Intake & Output: Intake and Output for Last 24 Hours 09/22/24 09/23/24 09/24/24 23:59 23:59 23:59 Intake Total 2141.02 / 2244.42 1562.58 / 1562.58 Output Total 2435 / 2836 3452 / 4302 1250 / 1250 Balance -293.98 / -591.58 -1889.42 / -2739.42 -1250 / -1250 Lab / Micro Data 09/24/24 07:20 09/24/24 07:20 Labs: Laboratory Results - last 24 hr 09/19/24 12:30: Miscellaneous Cytology SEE PATHOLOGY REPORT 09/23/24 06:21: POC Glucose 154 H 09/23/24 11:18: POC Glucose 120 H 09/23/24 17:49: POC Glucose 125 H 09/23/24 23:50: POC Glucose 105 09/24/24 05:41: POC Glucose 90 Micro: Microbiology 09/18/24 23:38 Stool Ova and Parasites - Final 09/19/24 12:30 Fluid - Pleural (Lung) Gram Stain - Final 09/19/24 12:30 Fluid - Pleural (Lung) Body Fluid Culture - Final Culture exhibits no growth. 09/19/24 12:30 Fluid - Pleural (Lung) Anaerobic Culture - Preliminary No growth in 48 hours. 09/19/24 10:28 Sputum, Induced/Lukens Gram Stain - Final 09/19/24 10:28 Sputum, Induced/Lukens Respiratory Culture - Final Culture exhibits no growth. 09/18/24 18:30 Blood Culture (Wb) - Anticubital Right Blood Culture - Preliminary No growth in 48 hours. 09/19/24 16:00 Urine Catheter - Catheter Legionella Antigen - Final 09/19/24 16:00 Urine Catheter - Catheter Streptococcus pneumoniae Antigen (M - Final 09/19/24 13:13 Nasal Secretion MRSA (PCR) - Final 09/19/24 13:12 Mucosa - Nasopharyngeal SARS-CoV-2, Influenza & RSV (PCR) - Final 09/18/24 23:38 Stool Clostridioides difficile (PCR) - Final 09/18/24 17:33 Mucosa - Nasopharyngeal Respiratory Panel (PCR) - Final Rhythm Strip Rhythm Strip: Sinus Rhythm Rate: 60 Physical Exam Const alert Constitutional Narrative: Angry. Establishes minimal eye contact with me. Resting frustration with me as well as other some the ancillary staff at his bedside. HEENT head/scalp atraumatic and moist oral mucous membranes Resp normal respiratory effort and no retractions Extremity normal to inspection Neuro Sensorium / Orientation: awake Assessment & Plan Assessment/Plan (1) CHF (congestive heart failure): QUALIFIERS: Heart failure chronicity: acute on chronic Heart failure type: unspecified Qualified Code(s): I50.9 - Heart failure, unspecified (2) Hyperkalemia: (3) JAMES (acute kidney injury): PLAN: Plan Cardiac arrest * occurred on 09/18. Bradycardia then PEA noted. Had successful ROSC after 6 minutes of high-quality CPR. Cardiology felt bradyarrhythmia may have been related vasovagal event from having a BM. * Had another event on 09/[address] scan. Again, noted bradycardia and PEA. Intubated by Dr. Rivas. Had successful ROSC. Another code blue was called on the , but no note of CPR, this may have been called due to burst cuff on ETT that was replaced. Acute HFrEF * EF 35% * on furosemide 60 TID. Metoprolol tartrate 25 BID. No ACEi/ARB given JAMES, so he is on isosorbide and hydralazine. * With pleural effusions s/p thoracentesis. Acute hypoxic respiratory failure * intubated on 09/19 during cardiac arrest. extubated 09/23. Now on 1liter NC. * on empiric abx with CTX for possible pneumonia Iatrogenic pneumothorax * thoracentesis on 09/19, then chest tube placed same day. * pulmonary managing chest tube. * Chest tube to waterseal. Tentative plan to remove chest tube on the . 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 Transfer patient to progressive care unit. Charges/Coding Visit Charges Inpatient E&M: 76004 Subs Hosp L2
[2024-09-24 07:37] LABS: Absolute Lymphocyte Count 1.01 X10^3/uL (0.83-4.51); Absolute Neutrophil Count 3.4 X10^3/uL (2.0-7.7); Basophil# 0.06 X10^3/uL; Basophil% 1.1 % (0-1); Eosinophil# 0.28 X10^3/uL; Eosinophils% 5.2 % (0-5); Hematocrit 39.7 % (40-54); Hemoglobin 12.3 g/dL (13.0-16.5); Lymphocyte # 1.01 X10^3/ul (0.83-4.51); Lymphocyte % 18.9 % (19-41); Mean Corpuscular Hgb 27.8 pg (27.0-32.0); Mean Corpuscular Volume 89.8 fL (80-94); Mean Platelet Vol. 9.6 fl (6.2-12.0); Monocyte# 0.54 X10^3/uL; Monocyte% 10.1 % (0-10); NRBC Flagged by Analyzer 0 % (0-5); Neutrophil # 3.43 X10^3/uL (2.7-7.7); Neutrophil % 64.1 % (47-70); Platelet Count 212 K/mm3 (150-450); RBC Distribution Width CV 14.7 % (11.6-14.6); RBC Distribution Width SD 48.5 fl (35.1-43.9); Red Blood Count 4.42 M/mm3 (4.6-6.2); White Blood Count 5.4 K/mm3 (4.4-11.0)
[2024-09-24] MEDS: NYSTATIN 500,000 UNIT/5 ML UDC 500000 UNIT PO ×4 (07:38→20:20)
[2024-09-24] MEDS: Furosemide 100 MG/10 ML Vial 60 MG IV ×2 (07:38→17:52)
[2024-09-24] MEDS: CHLORHEXIDINE GLUC 2% CLOTH 1 EACH TOWELETTE TOPICAL (07:39)
[2024-09-24] MEDS: Pantoprazole Sodium 40 MG in 0.9% Normal Saline (100mL MB+) 100 ML 330 MG IV (07:39)
[2024-09-24 07:50] LABS: Anion Gap 7 (5-15); BUN 47 mg/dL (7-18); BUN/Creat Ratio 31.3 RATIO (10-20); Calcium,Total 8.9 mg/dL (8.5-10.1); Chloride 103 mmol/L (98-107); EST Glomerular Filtration Rate 49 mL/min (>60); Est Glom Filt Rate - Afr Amer 60 mL/min (>60); Estimated Creatinine Clearance 37.08 ml/min; Glucose 102 mg/dL (74-106); Potassium 3.5 mmol/L (3.5-5.1); Sodium Level 142 mmol/L (136-145)
--- NOTE | 2024-09-24 08:12 | PN.CC_ITS ---
Assessment & Plan Assessment/Plan (1) Acute hypoxemic respiratory failure: (2) Bilateral pleural effusion: (3) Cardiopulmonary arrest with successful resuscitation: PLAN: Plan RECOMMENDATIONS: 1. Supplemental oxygen, if needed, to maintain saturations at or above 90%. 2. Place chest tube to waterseal today. Obtain follow-up chest x-ray tomorrow morning. 3. Tentative plans for modified barium swallow per speech therapy. Maintain n.p.o. status for now. 4. Continue ongoing diuresis as tolerated by hemodynamics and renal function. 5. Encourage incentive spirometer use and mobilize patient as tolerated. 6. The patient is medically stable for transfer out of the intensive care unit. IMPRESSIONS: 1. Acute hypoxemic respiratory failure status post PEA cardiac arrest x 3 Clinical concern for underlying decompensated heart failure is main precipitating etiology. The patient has large bilateral pleural effusions, which are transudative in nature and likely related to the patient's CHF. The patient was ultimately intubated after sustaining a PEA cardiac arrest. Recommend continuing goal-directed medical therapy per cardiology recommendations, along with diuresis as tolerated by hemodynamics and renal function. The patient underwent ultrasound-guided thoracentesis on September 19, which was complicated by iatrogenic pneumothorax requiring chest tube placement. The patient has improved from a respiratory perspective and was ultimately able to be extubated on September 23. Continue supplemental oxygen, if needed, to maintain saturations at or above 90%. Encourage incentive spirometer use and mobilize patient as tolerated. 2. Acute decompensated heart failure Continue medical management per cardiology recommendations. 3. Iatrogenic pneumothorax Given resolution of pneumothorax, will place chest tube to waterseal today. If there is no residual pneumothorax on follow-up chest x-ray tomorrow morning, we will plan to discontinue chest tube completely. 4. Acute kidney injury Improving. Underlying nephrotic syndrome is suspected in the setting of diabetic nephropathy with acute decompensation likely precipitated by hypotension in the setting of cardiac arrest and contrast administration. Nephrology is currently following to assist with medical management. Continue ongoing diuresis as tolerated by hemodynamics and renal function. 5. History of tobacco dependency/hypertension/diabetes mellitus Complicates care, management, recovery and prognosis. Continue to hold home medications for now. Physical therapy to work with the patient. Dietary advancement per speech therapy recommendations. This note was generated with [employer] software. It may contain incorrect words, spelling, and punctuation that were not noted in checking the note before signing. Subjective Subjective The patient was seen and examined at the bedside this morning. Events from the last 24 hours have been reviewed. The patient is currently afebrile hemodynamically stable. Repeat chest x-ray this morning showed no residual pneumothorax. Therefore, the patient's chest tube was placed to waterseal. He has done well from a respiratory perspective following extubation. However, he did once again failed his swallow evaluation by speech therapy today. They are considering a modified barium swallow at some point in the near future. White blood cell count is normal. Creatinine has improved to 1.5. Objective Data Objective Data The patient's most recent lab work, culture data and imaging studies have all been personally reviewed. Surface echocardiogram demonstrated a mildly dilated LV with severe global hypokinesis and an ejection fraction of 35%. Stage II diastolic dysfunction was noted. Bubble contrast study was positive for a PFO. Pulmonary artery systolic pressure was estimated to be 45 mmHg. Lower extremity Doppler study was negative for DVT. Infectious workup has been unrevealing to date. Vital Signs: Vital Signs Temp Pulse Resp BP Pulse Ox O2 Del Method O2 Flow Rate 100.3 F H 75 29 H 152/95 H 98 Nasal Cannula 1 09/24/24 08:00 09/24/24 08:00 09/24/24 08:00 09/24/24 08:00 09/24/24 08:00 09/24/24 08:00 09/24/24 07:58 FiO2 1 09/24/24 08:00 Oxygen Flow Rate (L/min) 1 Oxygen Delivery Method Nasal Cannula Weight: 124 lb 5.451 oz Body Mass Index (BMI) 19.5 Intake & Output: Intake and Output for Last 24 Hours 09/22/24 09/23/24 09/24/24 23:59 23:59 23:59 Intake Total 2141.02 / 2244.42 1562.58 / 1562.58 110 / 110 Output Total 2435 / 2836 3452 / 4302 1250 / 1250 Balance -293.98 / -591.58 -1889.42 / -2739.42 -1140 / -1140 Lab / Micro Data Attestation: I reviewed the patient's lab results. 09/24/24 07:20 09/24/24 07:20 Labs: Laboratory Results - last 24 hr 09/23/24 06:21: POC Glucose 154 H 09/23/24 11:18: POC Glucose 120 H 09/23/24 17:49: POC Glucose 125 H 09/23/24 23:50: POC Glucose 105 09/24/24 05:41: POC Glucose 90 09/24/24 07:20: WBC 5.4, RBC 4.42 L, Hgb 12.3 L, Hct 39.7 L, MCV 89.8, MCH 27.8, MCHC 31.0 L, RDW Std Deviation 48.5 H, RDW Coeff of Agus 14.7 H, Plt Count 212, MPV 9.6, Immature Gran % (Auto) 0.600, Neut % (Auto) 64.1, Lymph % (Auto) 18.9 L , Cole % (Auto) 10.1 H, Eos % (Auto) 5.2 H, Baso % (Auto) 1.1 H, Absolute Neuts (auto) 3.4, Absolute Lymphs (auto) 1.01, Nucleated RBC % 0, Sodium 142, Potassium 3.5, Chloride 103, Carbon Dioxide 32.0, Anion Gap 7, BUN 47 H, C reatinine 1.50 H, Estim Creat Clear Calc 37.08, Est GFR (MDRD) Af Amer 60, Est GFR (MDRD) Non-Af 49 L, BUN/Creatinine Ratio 31.3 H, Glucose 102, Calcium 8.9 Micro: Microbiology 09/19/24 12:30 Fluid - Pleural (Lung) Gram Stain - Final 09/19/24 12:30 Fluid - Pleural (Lung) Body Fluid Culture - Final Culture exhibits no growth. 09/19/24 12:30 Fluid - Pleural (Lung) Anaerobic Culture - Final No growth in 5 days. 09/18/24 18:30 Blood Culture (Wb) - Anticubital Right Blood Culture - Final No growth in 5 days. 09/18/24 23:38 Stool Ova and Parasites - Final 09/19/24 10:28 Sputum, Induced/Lukens Gram Stain - Final 09/19/24 10:28 Sputum, Induced/Lukens Respiratory Culture - Final Culture exhibits no growth. 09/19/24 16:00 Urine Catheter - Catheter Legionella Antigen - Final 09/19/24 16:00 Urine Catheter - Catheter Streptococcus pneumoniae Antigen (M - Final 09/19/24 13:13 Nasal Secretion MRSA (PCR) - Final 09/19/24 13:12 Mucosa - Nasopharyngeal SARS-CoV-2, Influenza & RSV (PCR) - Final 09/18/24 23:38 Stool Clostridioides difficile (PCR) - Final 09/18/24 17:33 Mucosa - Nasopharyngeal Respiratory Panel (PCR) - Final ABG Data ABG results: ABG 09/19/24 10:47 Specimen Type ART Sample Site L Radial pH 7.43 Bicarbonate Actual 22.6 Total CO2 24 Base Excess -2 O2 Saturation 95 O2 % 35.0 ABG pCO2 33.8 L ABG pO2 70 L Fred Test Positive Respiration Rate 16 O2 Delivery Device Adult Vent Vent Mode AC Tidal Volume 450.0 POC PEEP 5 Radiography Diagnostic Testing: Radiology Impression Chest CTA 09/19/24 08:56 IMPRESSION: No evidence of pulmonary embolism. Large bilateral pleural effusions right greater than left with bibasilar compressive atelectasis. Coronary artery calcification. Electronically Signed: Robert Campos MD at 10:03 EST , Chest X-Ray 09/19/24 09:46 IMPRESSION: The tip of the endotracheal tube is at the origin of the right mainstem bronchus. It should be pulled back 2 cm. Bilateral pleural effusions right greater than left with bibasilar atelectasis and/or infiltrates. Electronically Signed: Robert Campos MD at 10:21 EST , Chest X-Ray 09/19/24 09:55 IMPRESSION: The tip of the endotracheal tube is now at 2.3 cm proximal to the rafia. The remainder of the examination is unchanged. Electronically Signed: Robert Campos MD at 10:22 EST , Chest X-Ray 09/19/24 11:44 IMPRESSION: The tip of the endotracheal tube is at 3.2 cm proximal to the rafia. The remainder of the examination is unchanged. Electronically Signed: Robert Campos MD at 12:07 EST , Chest X-Ray 09/19/24 13:15 IMPRESSION: Status post right thoracentesis. 5-10% right pneumothorax. The right pleural effusion has resolved. Residual pleural parenchymal changes at the left lung base. Electronically Signed: Robert Campos MD at 13:28 EST , Renal Ultrasound 09/19/24 13:16 IMPRESSION: Trace amount of perinephric fluid around the right kidney. There is no hydronephrosis. The patient status post left nephrectomy. Electronically Signed: Adalid Holt MD at 16:52 EST , Chest X-Ray 09/19/24 13:37 IMPRESSION: Status post placement of a small-caliber right-sided chest tube with the tip at the right lung apex. No evidence of pneumothorax at this time. Electronically Signed: Robert Campos MD at 14:17 EST , Rhythm Strip Rhythm Strip: Sinus Rhythm Rate: 60 Physical Exam Const alert and no apparent distress Constitutional Narrative: Chronically ill in appearance. HEENT normocephalic and head/scalp atraumatic Teeth and Gingiva: poor dentition Eyes PERRL, EOMs intact bilaterally and conjunctivae normal Neck supple General: trachea midline Chest inspection of chest normal Chest Narrative: No airleak noted in the patient's Pleur-evac. Chest: chest tube Resp Auscultation: diminished lung sounds Cardio regular rate and regular rhythm GI normal to inspection, nondistended, normoactive bowel sounds Extremity General Extremity: edema; Negative for clubbing Skin no rashes or lesions noted Neuro CN's II-XII intact bilaterally, moves all extremities and no focal motor deficits Psych Mood & Affect: flat affect Charges/Coding Visit Charges Inpatient E&M: 32055 Subs Hosp L3
--- NOTE | 2024-09-24 09:16 | CASEMGMT ---
Social Work SW met w/pt in room initially to speak about POA for healthcare. SW explained to pt that without having a POA, we would need to track down his son to see if he would want to make decisions for pt, and if not then we would ask his brothers. Pt states he has not seen his son in 14 years. Pt does not want to complete POA papers. SW inquired who he would want to make decisions for him if he could not for himself, he just states I don't want to bother with all that. At this time pt not amenable to completing the documents. Pt went on to express frustration w/his hospital stay. SW attempted to offer support to pt. SW will continue to follow, to offer support and with CM to eventually make appropriate discharge plans w/pt. TWYLA Olvera
[2024-09-24 12:42] LABS: Bedside Glucose 102 mg/dL (74-106)
--- NOTE | 2024-09-24 16:01 | PCM.PN.REN ---
Subjective Subjective Following for JAMES and CKD. The patient was extubated on 09/23/2024. The patient is taciturn. However, he denies chest pain, shortness of breath, or nausea. He is still coughing. Cough has been nonproductive. Objective Data Objective Data Vital Signs: Vital Signs Temp Pulse Resp BP Pulse Ox O2 Del Method O2 Flow Rate 100.5 F H 81 12 141/67 H 99 Room Air 1 09/24/24 10:00 09/24/24 10:00 09/24/24 10:00 09/24/24 10:00 09/24/24 10:00 09/24/24 14:00 09/24/24 10:00 FiO2 1 09/24/24 09:00 Oxygen Flow Rate (L/min) 1 Oxygen Delivery Method Room Air Weight: 56.4 kg Body Mass Index (BMI) 19.5 Intake & Output: Intake and Output for Last 24 Hours 09/22/24 09/23/24 09/24/24 23:59 23:59 23:59 Intake Total 2141.02 / 2244.42 1562.58 / 1562.58 110 / 110 Output Total 2435 / 2836 3452 / 4302 1950 / 1950 Balance -293.98 / -591.58 -1889.42 / -2739.42 -1840 / -1840 Lab / Micro Data 09/24/24 07:20 09/24/24 07:20 Labs: Laboratory Results - last 24 hr 09/23/24 17:49: POC Glucose 125 H 09/23/24 23:50: POC Glucose 105 09/24/24 05:41: POC Glucose 90 09/24/24 07:20: WBC 5.4, RBC 4.42 L, Hgb 12.3 L, Hct 39.7 L, MCV 89.8, MCH 27.8, MCHC 31.0 L, RDW Std Deviation 48.5 H, RDW Coeff of Agus 14.7 H, Plt Count 212, MPV 9.6, Immature Gran % (Auto) 0.600, Neut % (Auto) 64.1, Lymph % (Auto) 18.9 L, Runnels % (Auto) 10.1 H, Eos % (Auto) 5.2 H, Baso % (Auto) 1.1 H, Absolute Neuts (auto) 3.4, Absolute Lymphs (auto) 1.01, Nucleated RBC % 0, Sodium 142, Potassium 3.5, Chloride 103, Carbon Dioxide 32.0, Anion Gap 7, BUN 47 H, Creatinine 1.50 H, Estim Creat Clear Calc 37.08, Est GFR (MDRD) Af Amer 60, Est GFR (MDRD) Non-Af 49 L, BUN/Creatinine Ratio 31.3 H, Glucose 102, Calcium 8.9 09/24/24 12:22: POC Glucose 102 Micro: Microbiology 09/19/24 12:30 Fluid - Pleural (Lung) Gram Stain - Final 09/19/24 12:30 Fluid - Pleural (Lung) Body Fluid Culture - Final Culture exhibits no growth. 09/19/24 12:30 Fluid - Pleural (Lung) Anaerobic Culture - Final No growth in 5 days. 09/18/24 18:30 Blood Culture (Wb) - Anticubital Right Blood Culture - Final No growth in 5 days. 09/18/24 23:38 Stool Ova and Parasites - Final 09/19/24 10:28 Sputum, Induced/Lukens Gram Stain - Final 09/19/24 10:28 Sputum, Induced/Lukens Respiratory Culture - Final Culture exhibits no growth. 09/19/24 16:00 Urine Catheter - Catheter Legionella Antigen - Final 09/19/24 16:00 Urine Catheter - Catheter Streptococcus pneumoniae Antigen (M - Final 09/19/24 13:13 Nasal Secretion MRSA (PCR) - Final 09/19/24 13:12 Mucosa - Nasopharyngeal SARS-CoV-2, Influenza & RSV (PCR) - Final 09/18/24 23:38 Stool Clostridioides difficile (PCR) - Final 09/18/24 17:33 Mucosa - Nasopharyngeal Respiratory Panel (PCR) - Final Radiography Diagnostic Testing: Radiology Impression Chest X-Ray 09/24/24 05:00 IMPRESSION: No evidence of pneumothorax. Mild residual bibasilar atelectasis and blunting of both costophrenic angles. The endotracheal tube and nasogastric tube have been removed. Electronically Signed: Robert Campos MD at 8:17 EST , Rhythm Strip Rhythm Strip: Sinus Rhythm Rate: 60 Physical Exam Narrative General appearance: Ill-appearing. HEENT: Normocephalic, atraumatic. Mucous membrane dry. Cardiovascular: Normal S1, S2. Lungs: Clear to auscultation anteriorly. Abdomen: Normal bowel sounds, soft, nontender. Extremities: No clubbing, cyanosis or edema. Const average body habitus General Appearance: patient mechanically ventilated HEENT normocephalic Neck no lymphadenopathy Resp clear to auscultation bilaterally Auscultation: diminished lung sounds Cardio regular rate Rate: bradycardia GI non-distended Auscultation: normoactive bowel sounds Palpation: soft and no hepatosplenomegaly Bladder / Kidney Exam: catheter in place Extremity General Extremity: edema bilateral lower extremity Skin no rashes or lesions noted Neuro Sensorium / Orientation: sedated on vent Assessment & Plan Assessment/Plan (1) JAMES (acute kidney injury): (2) Congestive heart failure: (3) Hyperkalemia: PLAN: Plan Impression/Plan: The patient is a 69-year-old male with past history of type 2 diabetes mellitus, hypertension, HFrEF (EF 35%), hypothyroidism, and osteoarthritis. The patient presented to the hospital on 09/16/2024 with bradycardia and PEA arrest. The patient was also found to have decompensated systolic heart failure along with acute hypoxic respiratory failure requiring ventilation. Patient has clinically improved and was extubated on 09/23/2024. Nephrology is following for acute kidney injury. Acute kidney injury. Baseline renal function is unknown. Patient presented to hospital with serum creatinine of 1.60 mg/dL on 09/16/2024. I suspect JAMES secondary to ischemic ATN related to decreased effective blood volume related to PEA arrest and heart failure. So far, serum creatinine has peaked at 2.35 mg/dL on 09/21/2024. Renal function has improved with supportive care and treatment of heart failure. Serum creatinine has decreased from 2.35 mg/dL on 09/21/2024 down to 1.50 mg/dL today on 09/24/2024. Continue current supportive care, keeping MAP above 65 mmHg. Okay to continue furosemide at 60 mg IV twice daily. We will continue to monitor renal function, volume status, acid-base and electrolytes. Nephrology plan will be discussed with Dr. Holder
[2024-09-24 16:59] LABS: Bedside Glucose 115 mg/dL (74-106)
[2024-09-25] VITALS (9 sets, daily range): BP systolic 152–177; BP diastolic 72–84; PULSE 74–86; RESP 12–18; TEMP 36.4–37.2; O2SAT 92–97; BMI 19.6
[2024-09-25 00:55] LABS: Bedside Glucose 107 mg/dL (74-106)
[2024-09-25] MEDS: 0.9% Saline Lock 10 ML Syringe IV ×2 (03:12→17:45)
[2024-09-25] MEDS: Metoprolol Tartrate 5 MG/5 ML Vial IV ×2 (03:12→15:40)
--- NOTE | 2024-09-25 05:00 | RAD_ITS ---
STUDY: X-RAY CHEST REASON FOR EXAM: Male, 69 years old patient with pneumothorax. TECHNIQUE: Single AP portable view of the chest. COMPARISON: September 24, 2024. FINDINGS: Cardiac monitoring leads are present. Small caliber right-sided thoracostomy tube is present with the tip near the right lung apex. Lungs are hyperexpanded. There is left lower lobe airspace consolidation and atelectasis suggesting pneumonia. There appear to be small bilateral pleural effusions. There may also be some patchy groundglass attenuation of the right lung base. There is mild cardiac enlargement. Normal mediastinum and carissa. Normal visualized pulmonary arteries. Normal visualized aortic arch and descending thoracic aorta. There are diffuse degenerative changes of the visualized thoracic spine. Normal visualized ribs, and clavicles. There are degenerative changes of the right shoulder. There is no demonstrated abnormality of the visualized soft tissue structures of the upper abdomen. RAD/Chest 1 View (Portable) IMPRESSION: 1. No evidence for pneumothorax. 2. Increasing left basilar airspace disease suggesting pneumonia. Electronically Signed: Deneen Puga MD at 6:28 EST ,
[2024-09-25] MEDS: Heparin Injection (Vial) 5,000 UNIT/ML VIAL 5000 UNIT SC ×3 (05:39→21:24)
[2024-09-25 06:32] LABS: Bedside Glucose 109 mg/dL (74-106)
--- NOTE | 2024-09-25 07:29 | PN.HOSP_ITS ---
Reason for Visit Reason for Visit: Diagnoses Hyperkalemia (09/17/24) Cardiac arrest, cause unspecified (09/17/24) Heart failure, unspecified (09/17/24) Pleural effusion, not elsewhere classified (09/17/24) Acute respiratory failure with hypoxia (09/17/24) Nephrotic syndrome with unspecified morphologic changes (09/17/24) Acute kidney failure, unspecified (09/17/24) Patent foramen ovale (09/17/24) Bradycardia, unspecified (09/17/24) Other forms of dyspnea (09/17/24) Patient's noncompliance with other medical treatment and regimen due to unspecified reason (09/17/24) Subjective Subjective Wants to drink lemonade. Objective Data Objective Data Vital Signs: Vital Signs Temp Pulse Resp BP Pulse Ox O2 Del Method O2 Flow Rate 37.2 C 78 16 155/72 H 96 Nasal Cannula 1 09/25/24 02:42 09/25/24 05:23 09/25/24 02:42 09/25/24 05:23 09/25/24 02:42 09/25/24 02:42 09/25/24 02:42 FiO2 1 09/24/24 09:00 Oxygen Flow Rate (L/min) 1 Oxygen Delivery Method Nasal Cannula Weight: 56.9 kg Body Mass Index (BMI) 19.6 Intake & Output: Intake and Output for Last 24 Hours 09/23/24 09/24/24 09/25/24 23:59 23:59 23:59 Intake Total 1562.58 / 1562.58 110 / 110 Output Total 3452 / 4302 1950 / 2200 500 / 500 Balance -1889.42 / -2739.42 -1840 / -2090 -500 / -500 Lab / Micro Data 09/25/24 08:02 09/25/24 08:02 Labs: Laboratory Results - last 24 hr 09/24/24 07:20: WBC 5.4, RBC 4.42 L, Hgb 12.3 L, Hct 39.7 L, MCV 89.8, MCH 27.8, MCHC 31.0 L, RDW Std Deviation 48.5 H, RDW Coeff of Agus 14.7 H, Plt Count 212, MPV 9.6, Immature Gran % (Auto) 0.600, Neut % (Auto) 64.1, Lymph % (Auto) 18.9 L , Hardy % (Auto) 10.1 H, Eos % (Auto) 5.2 H, Baso % (Auto) 1.1 H, Absolute Neuts (auto) 3.4, Absolute Lymphs (auto) 1.01, Nucleated RBC % 0, Sodium 142, Potassium 3.5, Chloride 103, Carbon Dioxide 32.0, Anion Gap 7, BUN 47 H, C reatinine 1.50 H, Estim Creat Clear Calc 37.08, Est GFR (MDRD) Af Amer 60, Est GFR (MDRD) Non-Af 49 L, BUN/Creatinine Ratio 31.3 H, Glucose 102, Calcium 8.9 09/24/24 12:22: POC Glucose 102 09/24/24 16:40: POC Glucose 115 H 09/25/24 00:35: POC Glucose 107 H 09/25/24 05:37: POC Glucose 109 H Micro: Microbiology 09/19/24 12:30 Fluid - Pleural (Lung) Gram Stain - Final 09/19/24 12:30 Fluid - Pleural (Lung) Body Fluid Culture - Final Culture exhibits no growth. 09/19/24 12:30 Fluid - Pleural (Lung) Anaerobic Culture - Final No growth in 5 days. 09/18/24 18:30 Blood Culture (Wb) - Anticubital Right Blood Culture - Final No growth in 5 days. 09/18/24 23:38 Stool Ova and Parasites - Final 09/19/24 10:28 Sputum, Induced/Lukens Gram Stain - Final 09/19/24 10:28 Sputum, Induced/Lukens Respiratory Culture - Final Culture exhibits no growth. 09/19/24 16:00 Urine Catheter - Catheter Legionella Antigen - Final 09/19/24 16:00 Urine Catheter - Catheter Streptococcus pneumoniae Antigen (M - Final 09/19/24 13:13 Nasal Secretion MRSA (PCR) - Final 09/19/24 13:12 Mucosa - Nasopharyngeal SARS-CoV-2, Influenza & RSV (PCR) - Final 09/18/24 23:38 Stool Clostridioides difficile (PCR) - Final 09/18/24 17:33 Mucosa - Nasopharyngeal Respiratory Panel (PCR) - Final Radiography Diagnostic Testing: Radiology Impression Chest X-Ray 09/24/24 05:00 IMPRESSION: No evidence of pneumothorax. Mild residual bibasilar atelectasis and blunting of both costophrenic angles. The endotracheal tube and nasogastric tube have been removed. Electronically Signed: Robert Campos MD at 8:17 EST , Chest X-Ray 09/25/24 05:00 IMPRESSION: 1. No evidence for pneumothorax. 2. Increasing left basilar airspace disease suggesting pneumonia. Electronically Signed: Deneen Puga MD at 6:28 EST , Rhythm Strip Rhythm Strip: Sinus Rhythm Rate: 60 Physical Exam Const alert and no apparent distress HEENT head/scalp atraumatic and moist oral mucous membranes Resp normal respiratory effort, no retractions, no use of accessory muscles and clear to auscultation bilaterally Cardio regular rate, regular rhythm, S1 normal heart sound and S2 normal heart sound GI normal to inspection, nondistended, normoactive bowel sounds and soft to palpation Neuro Sensorium / Orientation: awake and alert Assessment & Plan Assessment/Plan (1) CHF (congestive heart failure): QUALIFIERS: Heart failure chronicity: acute on chronic Heart failure type: unspecified Qualified Code(s): I50.9 - Heart failure, unspecified (2) Hyperkalemia: (3) JAMES (acute kidney injury): PLAN: Plan Cardiac arrest * occurred on 09/18. Bradycardia then PEA noted. Had successful ROSC after 6 minutes of high-quality CPR. Cardiology felt bradyarrhythmia may have been related vasovagal event from having a BM. * Had another event on 09/[address] scan. Again, noted bradycardia and PEA. Intubated by Dr. Rivas. Had successful ROSC. Another code blue was called on the , but no note of CPR, this may have been called due to burst cuff on ETT that was replaced. Acute HFrEF * EF 35% * on furosemide 60 TID. Metoprolol tartrate 25 BID. No ACEi/ARB given JAMES, so he is on isosorbide and hydralazine. * With pleural effusions s/p thoracentesis. Acute hypoxic respiratory failure * intubated on 09/19 during cardiac arrest. extubated 09/23. Now on 1liter NC. * on empiric abx with CTX for possible pneumonia Iatrogenic pneumothorax * thoracentesis on 09/19, then chest tube placed same day. * pulmonary managing chest tube. * Chest tube to waterseal. Tentative plan to remove chest tube on the . 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 They feel that patient will recover slowly. Will consult GI for PEG tube. Addressed with patient. Debility * walked 14' w therapy on the . Chronic conditions: * BPH: tamsulosin VTE prophylaxis: SQ heparin. Charges/Coding Visit Charges Inpatient E&M: 53949 Subs Hosp L2
[2024-09-25 08:26] LABS: Absolute Lymphocyte Count 1.07 X10^3/uL (0.83-4.51); Absolute Neutrophil Count 5.1 X10^3/uL (2.0-7.7); Basophil# 0.06 X10^3/uL; Basophil% 0.8 % (0-1); Eosinophil# 0.16 X10^3/uL; Eosinophils% 2.2 % (0-5); Hematocrit 44.7 % (40-54); Hemoglobin 13.9 g/dL (13.0-16.5); Lymphocyte # 1.07 X10^3/ul (0.83-4.51); Mean Corp Hgb Conc 31.1 g/dL (32-36); Mean Corpuscular Hgb 27.8 pg (27.0-32.0); Mean Corpuscular Volume 89.4 fL (80-94); Monocyte# 0.73 X10^3/uL; Monocyte% 10.3 % (0-10); NRBC Flagged by Analyzer 0 % (0-5); Neutrophil # 5.05 X10^3/uL (2.7-7.7); Platelet Count 267 K/mm3 (150-450); RBC Distribution Width CV 14.5 % (11.6-14.6); RBC Distribution Width SD 47.2 fl (35.1-43.9); White Blood Count 7.1 K/mm3 (4.4-11.0)
[2024-09-25 09:13] LABS: Anion Gap 10 (5-15); BUN 51 mg/dL (7-18); BUN/Creat Ratio 32.5 RATIO (10-20); Calcium,Total 9.7 mg/dL (8.5-10.1); Chloride 103 mmol/L (98-107); Creatinine, Serum 1.57 mg/dL (0.70-1.30); EST Glomerular Filtration Rate 47 mL/min (>60); Est Glom Filt Rate - Afr Amer 57 mL/min (>60); Estimated Creatinine Clearance 35.74 ml/min; Glucose 124 mg/dL (74-106); Potassium 3.5 mmol/L (3.5-5.1); Sodium Level 144 mmol/L (136-145)
[2024-09-25] MEDS: NYSTATIN 500,000 UNIT/5 ML UDC 500000 UNIT PO ×2 (09:45→17:46)
[2024-09-25] MEDS: Furosemide 100 MG/10 ML Vial 60 MG IV ×2 (09:45→17:45)
--- NOTE | 2024-09-25 10:33 | PCM.PN.INT ---
Assessment & Plan Assessment/Plan (1) Acute hypoxemic respiratory failure: (2) Bilateral pleural effusion: (3) Cardiopulmonary arrest with successful resuscitation: PLAN: Plan RECOMMENDATIONS: 1. Supplemental oxygen, if needed, to maintain saturations at or above 90%. 2. Remove chest tube today. Obtain follow-up chest x-ray after removal. 3. Modified barium swallow with speech therapy recommendations prior to advancement of diet. 4. Continue ongoing diuresis as tolerated by hemodynamics and renal function. 5. Encourage incentive spirometer use and mobilize patient as tolerated. 6. Will sign off from a critical care perspective. Please call with any additional questions. IMPRESSIONS: 1. Acute hypoxemic respiratory failure status post PEA cardiac arrest x 3 Clinical concern for underlying decompensated heart failure is main precipitating etiology. The patient has large bilateral pleural effusions, which are transudative in nature and likely related to the patient's CHF. The patient was ultimately intubated after sustaining a PEA cardiac arrest. Recommend continuing goal-directed medical therapy per cardiology recommendations, along with diuresis as tolerated by hemodynamics and renal function. The patient underwent ultrasound-guided thoracentesis on September 19, which was complicated by iatrogenic pneumothorax requiring chest tube placement. The patient has improved from a respiratory perspective and was ultimately able to be extubated on September 23. Continue supplemental oxygen, if needed, to maintain saturations at or above 90%. Encourage incentive spirometer use and mobilize patient as tolerated. 2. Acute decompensated heart failure Continue medical management per cardiology recommendations. 3. Iatrogenic pneumothorax Given resolution of pneumothorax, plan to remove chest tube today. Chest x-ray will be obtained after removal. 4. Acute kidney injury Improving. Underlying nephrotic syndrome is suspected in the setting of diabetic nephropathy with acute decompensation likely precipitated by hypotension in the setting of cardiac arrest and contrast administration. Nephrology is currently following to assist with medical management. Continue ongoing diuresis as tolerated by hemodynamics and renal function. 5. History of tobacco dependency/hypertension/diabetes mellitus Complicates care, management, recovery and prognosis. Continue to hold home medications for now. Physical therapy to work with the patient. Dietary advancement per speech therapy recommendations. This note was generated with [employer] software. It may contain incorrect words, spelling, and punctuation that were not noted in checking the note before signing. Subjective Subjective The patient was seen and examined at the bedside this morning. Events from the last 24 hours have been reviewed. The patient is currently afebrile, hemodynamically stable and maintaining appropriate oxygen saturations on room air. The patient has a modified barium swallow scheduled for this afternoon. Creatinine is stable at 1.57. The patient's chest tube has been on waterseal for the last 24 hours. There is no evidence of pneumothorax this morning. There is no air leak in the Pleur-evac. Therefore, the patient's chest tube was removed. Objective Data Objective Data The patient's most recent lab work, culture data and imaging studies have all been personally reviewed. Surface echocardiogram demonstrated a mildly dilated LV with severe global hypokinesis and an ejection fraction of 35%. Stage II diastolic dysfunction was noted. Bubble contrast study was positive for a PFO. Pulmonary artery systolic pressure was estimated to be 45 mmHg. Lower extremity Doppler study was negative for DVT. Infectious workup has been unrevealing to date. Vital Signs: Vital Signs Temp Pulse Resp BP Pulse Ox O2 Del Method O2 Flow Rate 97.5 F L 74 12 173/82 H 97 Room Air 1 09/25/24 09:44 09/25/24 09:44 09/25/24 09:44 09/25/24 09:44 09/25/24 09:52 09/25/24 10:00 09/25/24 09:52 FiO2 1 09/24/24 09:00 Oxygen Flow Rate (L/min) 1 Oxygen Delivery Method Room Air Weight: 125 lb 7.088 oz Body Mass Index (BMI) 19.6 Intake & Output: Intake and Output for Last 24 Hours 09/23/24 09/24/24 09/25/24 23:59 23:59 23:59 Intake Total 1562.58 / 1562.58 110 / 110 Output Total 3452 / 4302 1950 / 2200 500 / 500 Balance -1889.42 / -2739.42 -1840 / -2090 -500 / -500 Lab / Micro Data Attestation: I reviewed the patient's lab results. 09/25/24 08:02 09/25/24 08:02 Labs: Laboratory Results - last 24 hr 09/24/24 12:22: POC Glucose 102 09/24/24 16:40: POC Glucose 115 H 09/25/24 00:35: POC Glucose 107 H 09/25/24 05:37: POC Glucose 109 H 09/25/24 08:02: WBC 7.1, RBC 5.00, Hgb 13.9, Hct 44.7, MCV 89.4, MCH 27.8, MCHC 31.1 L, RDW Std Deviation 47.2 H, RDW Coeff of Agus 14.5, Plt Count 267, MPV 9.0, Immature Gran % (Auto) 0.700, Neut % (Auto) 71.0 H, Lymph % (Auto) 15.0 L, Archuleta % (Auto) 10.3 H, Eos % (Auto) 2.2, Baso % (Auto) 0.8, Absolute Neuts (auto) 5.1, Absolute Lymphs (auto) 1.07, Nucleated RBC % 0, Sodium 144, Potassium 3.5, Chloride 103, Carbon Dioxide 31.0, Anion Gap 10, BUN 51 H, Creatinine 1.57 H, Estim Creat Clear Calc 35.74, Est GFR (MDRD) Af Amer 57 L, Est GFR (MDRD) Non-Af 47 L, BUN/Creatinine Ratio 32.5 H, Glucose 124 H, Calcium 9.7 Micro: Microbiology 09/19/24 12:30 Fluid - Pleural (Lung) Gram Stain - Final 09/19/24 12:30 Fluid - Pleural (Lung) Body Fluid Culture - Final Culture exhibits no growth. 09/19/24 12:30 Fluid - Pleural (Lung) Anaerobic Culture - Final No growth in 5 days. 09/18/24 18:30 Blood Culture (Wb) - Anticubital Right Blood Culture - Final No growth in 5 days. 09/18/24 23:38 Stool Ova and Parasites - Final 09/19/24 10:28 Sputum, Induced/Lukens Gram Stain - Final 09/19/24 10:28 Sputum, Induced/Lukens Respiratory Culture - Final Culture exhibits no growth. 09/19/24 16:00 Urine Catheter - Catheter Legionella Antigen - Final 09/19/24 16:00 Urine Catheter - Catheter Streptococcus pneumoniae Antigen (M - Final 09/19/24 13:13 Nasal Secretion MRSA (PCR) - Final 09/19/24 13:12 Mucosa - Nasopharyngeal SARS-CoV-2, Influenza & RSV (PCR) - Final 09/18/24 23:38 Stool Clostridioides difficile (PCR) - Final 09/18/24 17:33 Mucosa - Nasopharyngeal Respiratory Panel (PCR) - Final ABG Data ABG results: ABG 09/19/24 10:47 Specimen Type ART Sample Site L Radial pH 7.43 Bicarbonate Actual 22.6 Total CO2 24 Base Excess -2 O2 Saturation 95 O2 % 35.0 ABG pCO2 33.8 L ABG pO2 70 L Fred Test Positive Respiration Rate 16 O2 Delivery Device Adult Vent Vent Mode AC Tidal Volume 450.0 POC PEEP 5 Radiography Diagnostic Testing: Radiology Impression Chest X-Ray 09/25/24 05:00 IMPRESSION: 1. No evidence for pneumothorax. 2. Increasing left basilar airspace disease suggesting pneumonia. Electronically Signed: Deneen Puga MD at 6:28 EST , Rhythm Strip Rhythm Strip: Sinus Rhythm Rate: 60 Physical Exam Const alert and no apparent distress Constitutional Narrative: Chronically ill in appearance. HEENT normocephalic and head/scalp atraumatic Teeth and Gingiva: poor dentition Eyes PERRL, EOMs intact bilaterally and conjunctivae normal Neck supple General: trachea midline Chest inspection of chest normal Chest Narrative: No airleak noted in the patient's Pleur-evac. Chest: chest tube Resp Auscultation: diminished lung sounds Cardio regular rate and regular rhythm GI normal to inspection, nondistended, normoactive bowel sounds Extremity General Extremity: edema; Negative for clubbing Skin no rashes or lesions noted Neuro CN's II-XII intact bilaterally, moves all extremities and no focal motor deficits Psych Mood & Affect: flat affect Charges/Coding Visit Charges Inpatient E&M: 11918 Subs Hosp L2
--- NOTE | 2024-09-25 10:55 | PCM.PN.REN ---
Subjective Subjective Following for JAMES. The patient has no new complaints. He denies chest pain, shortness of breath, or nausea. Objective Data Objective Data Vital Signs: Vital Signs Temp Pulse Resp BP Pulse Ox O2 Del Method O2 Flow Rate 97.5 F L 74 12 173/82 H 97 Room Air 1 09/25/24 09:44 09/25/24 09:44 09/25/24 09:44 09/25/24 09:44 09/25/24 09:52 09/25/24 10:00 09/25/24 09:52 FiO2 1 09/24/24 09:00 Oxygen Flow Rate (L/min) 1 Oxygen Delivery Method Room Air Weight: 56.9 kg Body Mass Index (BMI) 19.6 Intake & Output: Intake and Output for Last 24 Hours 09/23/24 09/24/24 09/25/24 23:59 23:59 23:59 Intake Total 1562.58 / 1562.58 110 / 110 Output Total 3452 / 4302 1950 / 2200 500 / 500 Balance -1889.42 / -2739.42 -1840 / -2090 -500 / -500 Lab / Micro Data 09/25/24 08:02 09/25/24 08:02 Labs: Laboratory Results - last 24 hr 09/24/24 12:22: POC Glucose 102 09/24/24 16:40: POC Glucose 115 H 09/25/24 00:35: POC Glucose 107 H 09/25/24 05:37: POC Glucose 109 H 09/25/24 08:02: WBC 7.1, RBC 5.00, Hgb 13.9, Hct 44.7, MCV 89.4, MCH 27.8, MCHC 31.1 L, RDW Std Deviation 47.2 H, RDW Coeff of Agus 14.5, Plt Count 267, MPV 9.0, Immature Gran % (Auto) 0.700, Neut % (Auto) 71.0 H, Lymph % (Auto) 15.0 L, Walsh % (Auto) 10.3 H, Eos % (Auto) 2.2, Baso % (Auto) 0.8, Absolute Neuts (auto) 5.1, Absolute Lymphs (auto) 1.07, Nucleated RBC % 0, Sodium 144, Potassium 3.5, Chloride 103, Carbon Dioxide 31.0, Anion Gap 10, BUN 51 H, Creatinine 1.57 H, Estim Creat Clear Calc 35.74, Est GFR (MDRD) Af Amer 57 L, Est GFR (MDRD) Non-Af 47 L, BUN/Creatinine Ratio 32.5 H, Glucose 124 H, Calcium 9.7 Micro: Microbiology 09/19/24 12:30 Fluid - Pleural (Lung) Gram Stain - Final 09/19/24 12:30 Fluid - Pleural (Lung) Body Fluid Culture - Final Culture exhibits no growth. 09/19/24 12:30 Fluid - Pleural (Lung) Anaerobic Culture - Final No growth in 5 days. 09/18/24 18:30 Blood Culture (Wb) - Anticubital Right Blood Culture - Final No growth in 5 days. 09/18/24 23:38 Stool Ova and Parasites - Final 09/19/24 10:28 Sputum, Induced/Lukens Gram Stain - Final 09/19/24 10:28 Sputum, Induced/Lukens Respiratory Culture - Final Culture exhibits no growth. 09/19/24 16:00 Urine Catheter - Catheter Legionella Antigen - Final 09/19/24 16:00 Urine Catheter - Catheter Streptococcus pneumoniae Antigen (M - Final 09/19/24 13:13 Nasal Secretion MRSA (PCR) - Final 09/19/24 13:12 Mucosa - Nasopharyngeal SARS-CoV-2, Influenza & RSV (PCR) - Final 09/18/24 23:38 Stool Clostridioides difficile (PCR) - Final 09/18/24 17:33 Mucosa - Nasopharyngeal Respiratory Panel (PCR) - Final Radiography Diagnostic Testing: Radiology Impression Chest X-Ray 09/25/24 05:00 IMPRESSION: 1. No evidence for pneumothorax. 2. Increasing left basilar airspace disease suggesting pneumonia. Electronically Signed: Deneen Puga MD at 6:28 EST Reading Location ID and State: [address] [place] [address] , Service support , Rhythm Strip Rhythm Strip: Sinus Rhythm Rate: 60 Physical Exam Narrative General appearance: Ill-appearing. HEENT: Normocephalic, atraumatic. Mucous membrane dry. Cardiovascular: Normal S1, S2. Lungs: Clear to auscultation anteriorly. Abdomen: Normal bowel sounds, soft, nontender. Extremities: No clubbing, cyanosis or edema. Const average body habitus General Appearance: patient mechanically ventilated HEENT normocephalic Neck no lymphadenopathy Resp clear to auscultation bilaterally Auscultation: diminished lung sounds Cardio regular rate Rate: bradycardia GI non-distended Auscultation: normoactive bowel sounds Palpation: soft and no hepatosplenomegaly Bladder / Kidney Exam: catheter in place Extremity General Extremity: edema bilateral lower extremity Skin no rashes or lesions noted Neuro Sensorium / Orientation: sedated on vent Assessment & Plan Assessment/Plan (1) JAMES (acute kidney injury): (2) Congestive heart failure: (3) Hyperkalemia: PLAN: Plan Impression/Plan: The patient is a 69-year-old male with past history of type 2 diabetes mellitus, hypertension, HFrEF (EF 35%), hypothyroidism, and osteoarthritis. The patient presented to the hospital on 09/16/2024 with bradycardia and PEA arrest. The patient was also found to have decompensated systolic heart failure along with acute hypoxic respiratory failure requiring ventilation. Patient has clinically improved and was extubated on 09/23/2024. Nephrology is following for acute kidney injury. Acute kidney injury. Baseline renal function is unknown. Patient presented to hospital with serum creatinine of 1.60 mg/dL on 09/16/2024. I suspect JAMES secondary to ischemic ATN related to decreased effective blood volume related to PEA arrest and heart failure. So far, serum creatinine has peaked at 2.35 mg/dL on 09/21/2024. Renal function has improved with supportive care and treatment of heart failure. Serum creatinine has decreased from 2.35 mg/dL on 09/21/2024 down to 1.50 mg/dL on 09/24/2024. Serum creatinine remains stable today at 1.57 mg/dL on 09/25/2024. Current renal function may be his baseline since he was admitted with serum creatinine of 1.60 mg/dL. Continue current supportive care, keeping MAP above 65 mmHg. Okay to continue furosemide at 60 mg IV twice daily. We can transition patient to oral loop diuretic to maintain euvolemia in the next 24 hours. We will continue to monitor renal function, volume status, acid-base and electrolytes. Nephrology plan will be discussed with Dr. Holder
--- NOTE | 2024-09-25 11:27 | RAD_ITS ---
STUDY: X-RAY CHEST REASON FOR EXAM: Male, 69 years old. S/p chest tube removal TECHNIQUE: Single AP portable view of the chest. COMPARISON: Comparison is made with prior study dated September 25, 2024 at 4:51 AM. FINDINGS: The small-caliber right-sided chest tube has been removed. No evidence of right pneumothorax. Stable pleural parenchymal changes at the left lung base. Residual blunting of the right costophrenic angle. Normal size heart. Normal mediastinum and carissa. Normal visualized pulmonary arteries. There is atherosclerotic calcification of the aortic arch with tortuosity. There are diffuse degenerative changes of the visualized thoracic spine. Normal visualized ribs, clavicles, and shoulders. There is no demonstrated abnormality of the visualized soft tissue structures of the upper abdomen. RAD/Chest 1 View (Portable) IMPRESSION: Status post removal of the right small caliber chest tube. No evidence of pneumothorax. The remainder of the examination is unchanged. Electronically Signed: Robert Campos MD at 12:09 EST ,
[2024-09-25 12:31] LABS: Bedside Glucose 141 mg/dL (74-106)
--- NOTE | 2024-09-25 15:11 | ST.MBS ---
Modified Barium Swallow Patient Information Study Date: 09/25/24 Study Time: 14:00 Direct Billable Minutes: 102 Total Minutes procedure & reportin Diagnosis: Acute hypoxemic respiratory failure J96.01 Referring Physician: Pastor Holder Reason for Referral: Objectively assess swallow function, assess risk for aspiration, and determine recommendations for least restrictive diet textures and compensatory strategies to improve safety of swallow. Medical History: PMH: HTN; on furosemide, history of CHF, history of DM-2; currently not on treatment, former tobacco abuse, history of COVID-19 (2021), history of thumb surgery and osteoarthritis (See EMR for full PMH). Pt presented to [facility] ED 09/17/2024 w/ SOB and bilateral LE edema. In the ER, he was noted to have a highly elevated BNP of 4,191.2 pg/mL present on admission consistent with AE of CHF of unspecified-type with CT this admission revealing Large Bilateral Pleural Effusions with possible underlying Pneumonia and cardiomegaly with trace pericardial effusion and [id number] volume ascites of uncertain etiology along with an incidentally noted absent Left kidney. Pt admitted to PCU. During his stay, three code blues were called. 09/19/2024 he required intubation. Thoracentesis 09/19/24 with complication of pneumothorax requiring chest tube placement. Pt was extubated 09/23/2024 and did very poorly when provided water by RN for dysphagia screen. He was consulted for ST evaluation of swallow function prior to diet advancement. BSE completed 09/23/24 and recommended strict NPO. Re-assessment at bedside on 09/24/24 recommended NPO w/ ice chips 1 at a time, total feed. This morning, pt tolerated trials of applesauce, but continued coughing w/ ice and tsp sips of liquids. ROVING CAN TENDER recommended MBSS to consider the patient for diet advancement. Current Diet Ordered: NPO - ice chips 1 at a time after oral care Dentition: Natural Teeth, Partials and Missing Teeth Mental Status: WNL Respiratory Status: Oxygenating on Room Air Penetration-Aspiration Scale Penetration-Aspiration Scale: OBJECTIVE ASSESSMENT OF SWALLOW FUNCTION (QUANTITATIVE ? PER TRIAL): PENETRATION / ASPIRATION SCALE (DANG): 1 = does not enter airway 2 = enters airway/above vocal folds/ejected 3 = enters airway/above vocal folds/not ejected 4 = enters airway/contacts vocal folds/ejected 5 = enters airway/contacts vocal folds/not ejected 6 = enters airway/below vocal folds/ejected 7 = enters airway/below vocal folds/not ejected despite effort 8 = enters airway/below vocal folds/no effort VIDEOFLOROSCOPIC SCALE SCORE (DANG): Grade I = aspiration of material that has penetrated into the laryngeal vestibule, intact cough reflex Grade II = aspiration < 10 % of the bolus, intact cough reflex Grade III = aspiration of < 10 % of the bolus, reduced cough reflex or aspiration of > 10 % of the bolus, intact cough reflex Grade IV = aspiration of > 10 % of the bolus, reduced cough reflex Penetration-Aspiration Scale Score Thin Liquid via 1/2 teaspoon: Result: 7= enters airways/below vocal folds/not ejected despite effort [place]/mildly Thick Liquid via 1/2 tsp: Result: 8= enters airway/below vocal folds/no effort Comment: Silent post prandial aspiration of previous trial. [place] Thick Liquid via teaspoon: Result: 8= enters airway/below vocal folds/no effort Comment: Silent post prandial aspiration of previous trial. Honey Thick Liquid via teaspoon: Result: 5= enters airways/contacts vocal folds/not ejected Comment: Silent post prandial aspiration of previous trial. Cued hard cough = not effective Pudding via 1/2 teaspoon: Result: 1= does not enter airway Comment: Silent post prandial aspiration of previous trial. Pudding via teaspoon Effortful swallow: Result: 1= does not enter airway Honey Thick Liquid via teaspoon Effortful swallow: Result: 2= enter airway/above vocal folds/ejected [place] Thick Liquid via teaspoon Effortful swallow: Result: 5= enters airways/contacts vocal folds/not ejected Thin Liquid via teaspoon Effortful swallow: Result: 8= enters airway/below vocal folds/no effort Comment: Shortly after this trial, pt became nauseous and began dry heaving. ROVING CAN TENDER utilized Yankauer suction to clear some remaining oropharyngeal residues. SpO2 was monitored and read upper 80s to low 90s on room air. Oral Phase Labial Seal: Interlabial escape, no progression to anterior lip Tongue Control During Bolus Hold: Posterior escape of greater than half of bolus Bolus Transport/Lingual Motion: Delayed initiation of tongue motion Oral Residue: Trace residue lining oral structures Pharyngeal Phase Initiation of Pharyngeal Swallow: Bolus head in pyriforms Soft Palate Elevation: Trace column of contrast/air between soft palate and pharyngeal wall Laryngeal Elevation: Partial superior movement thyroid cart/partial apprx aryt-epig petiole Anterior Hyoid Excursion: Partial anterior movement Epiglottic Movement: Partial inversion Laryngeal Vestibule Closure at Height of Swallow: Incomplete; narrow column of air/contrast in laryngeal vestibule Pharyngeal Stripping Wave: Present - diminished Pharyngoesophageal Segment Opening: Parital distension and partial duration; parital obstruction of flow Tongue Base Retraction: Wide column of contrast between tongue base & post. pharyngeal wall Pharyngeal Residue: Majority of contrast within or on pharyngeal structures Esophageal Phase Esophageal Clearance: Esophageal retention (trace retention in upper esophagus) Diagnosis/Impression Diagnosis: Severe oropharyngeal dysphagia R13.12 Impression: The oral phase is primarily marked by... -Premature posterior loss of >1/2 of thin liquid bolus to the pyriforms prior to swallow onset. -Delayed tongue motion for A-P transport. -Did not assess cookie or mastication due to concerns for choking on solids given severity of dysphagia at this time. The pharyngeal phase is primarily marked by... -Delayed swallow onset. -Decreased pharyngeal contraction due to decreased TB retraction, stripping wave. In addition, pt has decreased UES opening/duration. Moderate-severe pharyngeal residues. -Decreased airway closure during the swallow. Aspiration of thin liquids by tsp w/ weak, ineffective cough reflex. Silent aspiration of nectar/mildly thick and honey/moderately thick liquids by tsp. Effortful swallow decreased risk for aspiration. Post prandial aspiration of thin, nectar/mildly thick, and honey/moderately thick liquids. Recommendations Diet: NPO (Ok for ice chips 1 at a time after oral care, total feed) Comment: Due to concern for pt's inability to safely consume adequate food/drink by mouth, ROVING [employer] TENDER recommends the patient be considered for tube feeding. Pt and physician to further discuss if pt is appropriate for tube feeding. ROVING CAN TENDER spoke w/ Dr. Holder recommending PEG placement as opposed to NG placement if the patient wishes to pursue tube feeding as he will require intensive rehabilitation to improve swallow function. ROVING CAN TENDER is recommending the patient for discharge to a rehab floor for intensive dysphagia therapy following his acute stay. Recommend Repeat Modified Barium Swallow: Yes (2-4 weeks after implementation of oropharyngeal exercise program) Need for Skilled Speech Therapy Services: Yes Comment: Dysphagia POC to include.... -Trials of honey/moderately thick liquid and purees by tsp w/ ROVING CAN TENDER ONLY to consider diet advancement for pleasure feeds. Pt was nauseous after only 8 trials during this MBSS, dry heaving immediately following the study. -Implementation of oropharyngeal exercise program (Effortful, Naeem, Stephanie, Shaker, CTAR). Education Completed: 1. Described result of evaluation., 2. Pt understands evaluation & agrees with goals and treatment plan. and 7. Pt requires further education on strategies & risks. Status Active ST Patient: Active Contact Information [facility] Speech Therapy:: Matilde Zeng M.A. CCC-ROVING CAN TENDER? Speech-Language Pathologist?? [facility] [address] [place] [address]? [email or web address]?? [phone]
--- NOTE | 2024-09-25 16:35 | CON.PCM.GI_ITS ---
HPI Consult Data Date of Consult: 09/25/24 HPI Narrative Reason for Consultation: PEG placement HPI Narrative: ZOE MENDEZ, is a 69-year-old male September 17 with progressive shortness of breath and lower extremity edema. The patient has a known history of hypertension, diabetes mellitus and congestive heart failure. The patient was actually seen in the emergency department on September 16 under similar circumstances, but ultimately signed out AGAINST MEDICAL ADVICE after hospital admission was recommended. On presentation to the emergency department, the patient was documented to be afebrile and hemodynamically stable. He was maintaining appropriate oxygen saturations on room air. Laboratory evaluation revealed a normal white blood cell count. Chemistry profile was notable for a creatinine of 1.76 and normal lactate. Troponin was elevated at 140 [place] 3794. A CT scan of the abdomen and pelvis was obtained due to urinary retention which demonstrated large bilateral pleural effusions and compressive atelectasis. The patient was ultimately admitted to the hospital where he was placed on goal-directed medical therapy for congestive heart failure. Surface echocardiogram completed on September 18 demonstrated severe global hypokinesis of the LV with an ejection fraction of 35% and stage II diastolic dysfunction. Pulmonary artery systolic pressure was estimated to be 45 to 50 mmHg. Lower extremity Doppler study was negative for the presence of DVT. On the afternoon of September 18, a CODE BLUE was called after the patient developed suspected vasovagal syncope while using the restroom and sustained PEA cardiac arrest with ROSC achieved after 2 rounds of epinephrine. The patient was alert and appropriately interactive after that code. He did require intubation. Since being extubated he has been having problems with esophageal dysphagia and aspiration pneumonia. [facility] Medical History Nephrotic syndrome History of COVID-19 Diabetes Home Medications ?Medication ?Instructions ?Recorded ?Last Taken ?Type furosemide 40 mg tablet 40 mg PO DAILY 7 days #7 tabs 09/16/24 09/17/24 Rx aspirin 81 mg tablet,delayed 81 mg PO DAILY 09/17/24 09/17/24 History release Allergy/AdvReac Type Severity Reaction Status Date / Time No Known Allergies Allergy Verified 09/17/24 16:53 Surgical History Hx of thumb surgery Social History Smoking Status: Former smoker ROS Constitutional Constitutional: Denies fatigue, fever(s), poor appetite, weight gain or weight loss Gastrointestinal Gastrointestinal: Denies belching, bloating, change in bowel habits, change in stool character, chewing difficulty, coffee ground emesis, constipation, cramping, diarrhea, dyspepsia, dysphagia, early satiety, excessive flatus, fecal incontinence, heartburn, hematemesis, hematochezia, hemorrhoids, loose stools, melena, nausea, odynophagia, rectal bleeding, tenesmus, vomiting or weight changes Physical Exam Const alert, oriented x3, no apparent distress and healthy appearing General Appearance: cooperative GI normal to inspection, nondistended, normoactive bowel sounds, soft to palpation, non-tender and non-distended Percussion: normal to percussion Rectal Exam: deferred Lab / Micro Data 09/25/24 08:02 09/26/24 08:53 Labs: Laboratory Results - last 24 hr 09/25/24 17:36: POC Glucose 147 H 09/26/24 00:35: POC Glucose 123 H 09/26/24 05:53: POC Glucose 131 H 09/26/24 08:53: Sodium 144, Potassium 3.5, Chloride 102, Carbon Dioxide 33.0 H, Anion Gap 9, BUN 59 H, Creatinine 1.43 H, Estim Creat Clear Calc 39.31, Est GFR (MDRD) Af Amer 63, Est GFR (MDRD) Non-Af 52 L, BUN/Creatinine Ratio 41.3 H, G lucose 140 H, Calcium 9.7 09/26/24 11:39: POC Glucose 143 H Rhythm Strip Rhythm Strip: Sinus Rhythm Rate: 60 Assessment & Plan Assessment/Plan (1) Dysphagia: PLAN: 69-year-old gentleman with multiple comorbidities comes in hypoxic respiratory failure with bilateral effusions secondary to PEA CODE STATUS postintubation and extubation currently with severe esophageal dysphagia and aspiration pneumonia. Was consulted in order to place percutaneous endoscopic gastrostomy tube. He was explained alternatives, risk and benefits include not withstanding bleeding, infection, sepsis, perforation, need for charge and . He will have an ASA of 3. Charges/Coding Visit Charges Inpatient E&M: 33472 Init Hosp L3
[2024-09-25 17:54] LABS: Bedside Glucose 147 mg/dL (74-106)
[2024-09-26] VITALS (42 sets, daily range): BP systolic 75–178; BP diastolic 51–89; PULSE 70–105; RESP 12–47; TEMP 36.2–37.1; O2SAT 82–100; BMI 19.7; BMI 19.6
[2024-09-26 00:54] LABS: Bedside Glucose 123 mg/dL (74-106)
[2024-09-26] MEDS: CHLORHEXIDINE GLUC 2% CLOTH 1 EACH TOWELETTE TOPICAL (04:43)
[2024-09-26] MEDS: Metoprolol Tartrate 5 MG/5 ML Vial IV (05:56)
[2024-09-26 06:27] LABS: Bedside Glucose 131 mg/dL (74-106)
--- NOTE | 2024-09-26 08:06 | PN.HOSP_ITS ---
Reason for Visit Reason for Visit: Diagnoses Hyperkalemia (09/17/24) Cardiac arrest, cause unspecified (09/17/24) Heart failure, unspecified (09/17/24) Pleural effusion, not elsewhere classified (09/17/24) Acute respiratory failure with hypoxia (09/17/24) Nephrotic syndrome with unspecified morphologic changes (09/17/24) Acute kidney failure, unspecified (09/17/24) Patent foramen ovale (09/17/24) Bradycardia, unspecified (09/17/24) Other forms of dyspnea (09/17/24) Patient's noncompliance with other medical treatment and regimen due to unspecified reason (09/17/24) Subjective Subjective Still wanting something to drink. Objective Data Objective Data Vital Signs: Vital Signs Temp Pulse Resp BP Pulse Ox O2 Del Method O2 Flow Rate 36.2 C L 74 18 162/84 H 98 Nasal Cannula 3 09/26/24 03:00 09/26/24 05:56 09/26/24 03:00 09/26/24 05:56 09/26/24 07:35 09/26/24 07:35 09/26/24 07:35 FiO2 1 09/24/24 09:00 Oxygen Flow Rate (L/min) 3 Oxygen Delivery Method Nasal Cannula Weight: 57 kg Body Mass Index (BMI) 19.6 Intake & Output: Intake and Output for Last 24 Hours 09/24/24 09/25/24 09/26/24 23:59 23:59 23:59 Intake Total 110 / 110 0 / 0 0 / 0 Output Total 1950 / 2200 2470 / 3345 875 / 875 Balance -1840 / -2090 -2470 / -3345 -875 / -875 Lab / Micro Data 09/25/24 08:02 09/26/24 08:53 Labs: Laboratory Results - last 24 hr 09/25/24 08:02: WBC 7.1, RBC 5.00, Hgb 13.9, Hct 44.7, MCV 89.4, MCH 27.8, MCHC 31.1 L, RDW Std Deviation 47.2 H, RDW Coeff of Agus 14.5, Plt Count 267, MPV 9.0, Immature Gran % (Auto) 0.700, Neut % (Auto) 71.0 H, Lymph % (Auto) 15.0 L, [place] % (Auto) 10.3 H, Eos % (Auto) 2.2, Baso % (Auto) 0.8, Absolute Neuts (auto) 5.1, Absolute Lymphs (auto) 1.07, Nucleated RBC % 0, Sodium 144, Potassium 3.5, Chloride 103, Carbon Dioxide 31.0, Anion Gap 10, BUN 51 H, Creatinine 1.57 H, Estim Creat Clear Calc 35.74, Est GFR (MDRD) Af Amer 57 L, Est GFR (MDRD) Non-Af 47 L, BUN/Creatinine Ratio 32.5 H, Glucose 124 H, Calcium 9.7 09/25/24 12:13: POC Glucose 141 H 09/25/24 17:36: POC Glucose 147 H 09/26/24 00:35: POC Glucose 123 H 09/26/24 05:53: POC Glucose 131 H Micro: Microbiology 09/19/24 12:30 Fluid - Pleural (Lung) Gram Stain - Final 09/19/24 12:30 Fluid - Pleural (Lung) Body Fluid Culture - Final Culture exhibits no growth. 09/19/24 12:30 Fluid - Pleural (Lung) Anaerobic Culture - Final No growth in 5 days. 09/18/24 18:30 Blood Culture (Wb) - Anticubital Right Blood Culture - Final No growth in 5 days. 09/18/24 23:38 Stool Ova and Parasites - Final 09/19/24 10:28 Sputum, Induced/Lukens Gram Stain - Final 09/19/24 10:28 Sputum, Induced/Lukens Respiratory Culture - Final Culture exhibits no growth. 09/19/24 16:00 Urine Catheter - Catheter Legionella Antigen - Final 09/19/24 16:00 Urine Catheter - Catheter Streptococcus pneumoniae Antigen (M - Final 09/19/24 13:13 Nasal Secretion MRSA (PCR) - Final 09/19/24 13:12 Mucosa - Nasopharyngeal SARS-CoV-2, Influenza & RSV (PCR) - Final 09/18/24 23:38 Stool Clostridioides difficile (PCR) - Final 09/18/24 17:33 Mucosa - Nasopharyngeal Respiratory Panel (PCR) - Final Radiography Diagnostic Testing: Radiology Impression Chest X-Ray 09/25/24 11:27 IMPRESSION: Status post removal of the right small caliber chest tube. No evidence of pneumothorax. The remainder of the examination is unchanged. Electronically Signed: Robert Campos MD at 12:09 EST , Rhythm Strip Rhythm Strip: Sinus Rhythm Rate: 60 Physical Exam Const alert and no apparent distress HEENT head/scalp atraumatic and moist oral mucous membranes Resp normal respiratory effort, no retractions, no use of accessory muscles and clear to auscultation bilaterally Cardio regular rate, regular rhythm, S1 normal heart sound and S2 normal heart sound GI normal to inspection, nondistended, normoactive bowel sounds, soft to palpation, non-tender and non-distended Neuro Sensorium / Orientation: awake and alert Assessment & Plan Assessment/Plan (1) CHF (congestive heart failure): QUALIFIERS: Heart failure chronicity: acute on chronic Heart failure type: unspecified Qualified Code(s): I50.9 - Heart failure, unspecified (2) Hyperkalemia: (3) JAMES (acute kidney injury): PLAN: Plan Cardiac arrest * occurred on 09/18. Bradycardia then PEA noted. Had successful ROSC after 6 minutes of high-quality CPR. Cardiology felt bradyarrhythmia may have been related vasovagal event from having a BM. * Had another event on 09/[address] scan. Again, noted bradycardia and PEA. Intubated by Dr. Rivas. Had successful ROSC. Another code blue was called on the , but no note of CPR, this may have been called due to burst cuff on ETT that was replaced. Acute HFrEF * EF 35% * on furosemide 60 TID. Metoprolol tartrate 25 BID. No ACEi/ARB given JAMES, so he is on isosorbide and hydralazine. * With pleural effusions s/p thoracentesis. Acute hypoxic respiratory failure * intubated on 09/19 during cardiac arrest. extubated 09/23. Now on 1liter NC. * on empiric abx with CTX for possible pneumonia Iatrogenic pneumothorax * thoracentesis on 09/19, then chest tube placed same day. * pulmonary managing chest tube. * Chest tube to waterseal. Tentative plan to remove chest tube on the . JAMES * improving * nephrology following * no need for [employer] Dysphagia * DW speech therapy. They feel that patient will recover slowly. Will consult GI for PEG tube. Addressed with patient. Debility * walked 14' w therapy on the . * Will need SNF upon discharge. Chronic conditions: * BPH: tamsulosin VTE prophylaxis: SQ heparin. Charges/Coding Visit Charges Inpatient E&M: 09512 Subs Hosp L2
[2024-09-26] MEDS: Furosemide 100 MG/10 ML Vial 60 MG IV ×2 (08:40→20:54)
[2024-09-26] MEDS: 0.9% Saline Lock 10 ML Syringe IV ×2 (08:41→10:39)
[2024-09-26 09:46] LABS: Anion Gap 9 (5-15); BUN 59 mg/dL (7-18); BUN/Creat Ratio 41.3 RATIO (10-20); Calcium,Total 9.7 mg/dL (8.5-10.1); Chloride 102 mmol/L (98-107); Creatinine, Serum 1.43 mg/dL (0.70-1.30); EST Glomerular Filtration Rate 52 mL/min (>60); Est Glom Filt Rate - Afr Amer 63 mL/min (>60); Estimated Creatinine Clearance 39.31 ml/min; Glucose 140 mg/dL (74-106); Potassium 3.5 mmol/L (3.5-5.1); Sodium Level 144 mmol/L (136-145)
--- NOTE | 2024-09-26 10:25 | PN.RENAL_ITS ---
Subjective Subjective Following for JAMES and possible CKD. The patient complains of thirst. He is currently n.p.o. awaiting feeding tube placement. Patient denies chest pain, nausea or vomiting. Dyspnea is improved. Objective Data Objective Data Vital Signs: Vital Signs Temp Pulse Resp BP Pulse Ox O2 Del Method O2 Flow Rate 97.9 F 70 18 178/82 H 100 Nasal Cannula 2 09/26/24 09:00 09/26/24 09:00 09/26/24 09:00 09/26/24 09:00 09/26/24 09:00 09/26/24 09:00 09/26/24 09:00 FiO2 1 09/24/24 09:00 Oxygen Flow Rate (L/min) 2 Oxygen Delivery Method Nasal Cannula Weight: 57 kg Body Mass Index (BMI) 19.6 Intake & Output: Intake and Output for Last 24 Hours 09/24/24 09/25/24 09/26/24 23:59 23:59 23:59 Intake Total 110 / 110 0 / 0 0 / 0 Output Total 1950 / 2200 2470 / 3345 875 / 875 Balance -1840 / -2090 -2470 / -3345 -875 / -875 Lab / Micro Data 09/25/24 08:02 09/26/24 08:53 Labs: Laboratory Results - last 24 hr 09/25/24 12:13: POC Glucose 141 H 09/25/24 17:36: POC Glucose 147 H 09/26/24 00:35: POC Glucose 123 H 09/26/24 05:53: POC Glucose 131 H 09/26/24 08:53: Sodium 144, Potassium 3.5, Chloride 102, Carbon Dioxide 33.0 H, Anion Gap 9, BUN 59 H, Creatinine 1.43 H, Estim Creat Clear Calc 39.31, Est GFR (MDRD) Af Amer 63, Est GFR (MDRD) Non-Af 52 L, BUN/Creatinine Ratio 41.3 H, G lucose 140 H, Calcium 9.7 Micro: Microbiology 09/19/24 12:30 Fluid - Pleural (Lung) Gram Stain - Final 09/19/24 12:30 Fluid - Pleural (Lung) Body Fluid Culture - Final Culture exhibits no growth. 09/19/24 12:30 Fluid - Pleural (Lung) Anaerobic Culture - Final No growth in 5 days. 09/18/24 18:30 Blood Culture (Wb) - Anticubital Right Blood Culture - Final No growth in 5 days. 09/18/24 23:38 Stool Ova and Parasites - Final 09/19/24 10:28 Sputum, Induced/Lukens Gram Stain - Final 09/19/24 10:28 Sputum, Induced/Lukens Respiratory Culture - Final Culture exhibits no growth. 09/19/24 16:00 Urine Catheter - Catheter Legionella Antigen - Final 09/19/24 16:00 Urine Catheter - Catheter Streptococcus pneumoniae Antigen (M - Final 09/19/24 13:13 Nasal Secretion MRSA (PCR) - Final 09/19/24 13:12 Mucosa - Nasopharyngeal SARS-CoV-2, Influenza & RSV (PCR) - Final 09/18/24 23:38 Stool Clostridioides difficile (PCR) - Final 09/18/24 17:33 Mucosa - Nasopharyngeal Respiratory Panel (PCR) - Final Radiography Diagnostic Testing: Radiology Impression Chest X-Ray 09/25/24 11:27 IMPRESSION: Status post removal of the right small caliber chest tube. No evidence of pneumothorax. The remainder of the examination is unchanged. Electronically Signed: Robert Campos MD at 12:09 EST , Rhythm Strip Rhythm Strip: Sinus Rhythm Rate: 60 Physical Exam Narrative General appearance: Ill-appearing. HEENT: Normocephalic, atraumatic. Mucous membrane dry. Cardiovascular: Normal S1, S2. Lungs: Clear to auscultation anteriorly. Abdomen: Normal bowel sounds, soft, nontender. Extremities: No clubbing, cyanosis or edema. Const average body habitus General Appearance: patient mechanically ventilated HEENT normocephalic Neck no lymphadenopathy Resp clear to auscultation bilaterally Auscultation: diminished lung sounds Cardio regular rate Rate: bradycardia GI non-distended Auscultation: normoactive bowel sounds Palpation: soft and no hepatosplenomegaly Bladder / Kidney Exam: catheter in place Extremity General Extremity: edema bilateral lower extremity Skin no rashes or lesions noted Neuro Sensorium / Orientation: sedated on vent Assessment & Plan Assessment/Plan (1) JAMES (acute kidney injury): (2) Congestive heart failure: (3) Hyperkalemia: PLAN: Plan Impression/Plan: The patient is a 69-year-old male with past history of type 2 diabetes mellitus, hypertension, HFrEF (EF 35%), hypothyroidism, and osteoarthritis. The patient presented to the hospital on 09/16/2024 with bradycardia and PEA arrest. The patient was also found to have decompensated systolic heart failure along with acute hypoxic respiratory failure requiring ventilation. Patient has clinically improved and was extubated on 09/23/2024. Nephrology is following for acute kidney injury. Acute kidney injury on probable chronic kidney disease. Baseline renal function is unknown. Patient presented to hospital with serum creatinine of 1.60 mg/dL on 09/16/2024. I suspect JAMES secondary to ischemic ATN related to decreased effective blood volume related to PEA arrest and heart failure. So far, serum creatinine has peaked at 2.35 mg/dL on 09/21/2024. Renal function has improved with supportive care and treatment of heart failure. Serum creatinine has decreased from 2.35 mg/dL on 09/21/2024 down to 1.50 mg/dL on 09/24/2024. Serum creatinine remains stable at 1.57 mg/dL on 09/25/2024. Current renal function may be his baseline since he was admitted with serum creatinine of 1.60 mg/dL. There is no new labs today. We can recheck tomorrow. Continue current supportive care, keeping MAP above 65 mmHg. The patient is currently on furosemide at 60 mg IV twice daily. The patient appears to be euvolemic. Since the patient has been stable hemodynamically with decreased requirement for oxygen, I think we can transition him to oral loop diuretic to maintain current weight once feeding tube is placed. We will continue to monitor renal function, volume status, acid-base and electrolytes. Nephrology plan will be discussed with Dr. Holder
[2024-09-26] MEDS: hydrALAZINE 20 MG/ML Vial 10 MG IV (10:40)
[2024-09-26] MEDS: NYSTATIN 500,000 UNIT/5 ML UDC 500000 UNIT PO (10:40)
[2024-09-26 12:14] LABS: Bedside Glucose 143 mg/dL (74-106)
--- NOTE | 2024-09-26 15:24 | PCM.PRE.AN2 ---
ASA Classification* ASA Classification ASA Classification: 4 Assessment & Plan Anesthesia* Anesthesia Assessment Anesthesia Assessment: Discussed sedation and/or anesthesia options, risks, benefits, and alternatives with patient/parents/legal guardian/POA. Questions invited. The patient/parents/legal guardian/POA seems to understand and agrees to proceed with anesthesia plan. Reviewed the physical assessment, medical history, allergy history and patient home medications list prior to surgery/procedure/anesthetic and documented any changes. Performed airway and anesthesia risk assessments. Anesthesia Type Anesthesia Type: MAC History Source History Obtained from:: Patient and Chart Anesthesia Focused Assessment* Temperature: 97.9 F Pulse Rate: 76 Blood Pressure: 123/71 Respiratory Rate: 22 Pulse Ox: 99 Oxygen Delivery Method: Nasal Cannula Fraction of Inspired Oxygen (FIO2): 1 Airway Assessment Mouth opens: >3 cm Mallampati Score: II Teeth Condition: Missing (Several missing teeth on the bottom) and Partial (Upper partials in.) Neck Range of motion (ROM): Limited ROM (Slight decrease in extension) Focused Labs Anesthesia Preop lab: CBC WBC 7.1 K/mm3 (4.4-11.0) 09/25/24 08:02 RBC 5.00 M/mm3 (4.6-6.2) 09/25/24 08:02 Hgb 13.9 g/dL (13.0-16.5) 09/25/24 08:02 Hct 44.7 % (40-54) 09/25/24 08:02 Plt Count 267 K/mm3 (150-450) 09/25/24 08:02 CHEMISTRY Potassium 3.5 mmol/L (3.5-5.1) 09/26/24 08:53 Sodium 144 mmol/L (136-145) 09/26/24 08:53 Magnesium 2.1 mg/dL (1.6-2.6) 09/19/24 12:15 Phosphorus 5.2 mg/dL (2.5-4.9) H 09/19/24 12:15 BUN 59 mg/dL (7-18) H 09/26/24 08:53 Creatinine 1.43 mg/dL (0.70-1.30) H 09/26/24 08:53 Glucose 140 mg/dL (74-106) H 09/26/24 08:53 POC Glucose 143 mg/dL (74-106) H 09/26/24 11:39 TSH 8.590 uIU/mL (0.358-3.740) H 09/16/24 11:22 COAG Pre-Assessment Diagnosis/Proposed Procedure Planned Operative Procedure(s): Esophagogastroduodenoscopy with PEG tube placement Anesthesia History 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 When Was Last Pacemaker Check QUESTION #4 FULL TEXT: You/Your Family Experience fever (hyperthermia) with Anesthesia Last Oral Intake Last Oral intake: Last Oral Intake NPO since 00:00 09/26/24 02:56 Meds taken in AM with sips of No 09/26/24 02:56 water? Meds patient instructed to take am of surgery PONV PONV - electric accounting machine operator: PONV - electric accounting machine operator Female HX of Motion Sickness HX of N/V After Surgery Non-Smoker Duration of Surgery greater than 60 minutes Number of Risk Factors PONV Score Height & Weight Height & Weight: Anesthesia: Height & Weight Height 5 ft 7 in 09/26/24 02:56 Weight: 57 kg 09/26/24 04:32 Body Mass Index (BMI) 19.6 09/26/24 04:32 Respiratory Assessment Respiratory Assessment - electric accounting machine operator: Respiratory Tract Infection Hx - electric accounting machine operator Hx Respiratory Tract Infection No 09/26/24 02:56 STOP Sleep Apnea STOP Sleep Apnea - electric accounting machine operator: STOP Sleep Apnea - electric accounting machine operator Hx Hypertension Yes 09/24/24 13:05 Hx Sleep Apnea No 09/17/24 21:10 CPAP BIPAP Do you snore loudly (louder Yes 09/17/24 21:10 than talking or can be heard Do you often feel tired/ No 09/17/24 21:10 fatigued/ sleepy during daytime? Has anyone observed you stop No 09/17/24 21:10 breathing during sleep? STOP Results Positive 09/17/24 21:10 QUESTION #5 FULL TEXT : Do you snore loudly (louder than talking or can be heard through closed doors)? 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 Specify any problems Hx of Preganancy in last 3 N/A 09/17/24 21:10 Months Nurse Filling Out Transfusion MBAUTZ 09/17/24 21:10 & Questions: Date: 09/17/24 09/17/24 21:10 Time: 21:25 09/17/24 21:10 Patient unable to answer at this time (ie. 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 INHALATION Q2H PRN PRN SOB &/OR WHEEZING Albuterol/Ipratropium 3 ml 09/18/24 17:06 09/22/24 09:45 Ipratropium/Albuterol Sulfate 3 Ml Ampul.Neb INHALATION 3 ml Q4H.RT PRN Administration SHORTNESS OF BREATH Chlorhexidine Gluconate 1 each 09/20/24 10:00 09/26/24 04:43 Chlorhexidine Gluc 2% Cloth 1 Each [place] TOPICAL 1 each DAILY CAROL Administration Furosemide 60 mg 09/24/24 10:00 09/26/24 08:40 Furosemide 100 Mg/10 Ml Vial IV 60 mg BIDLX CAROL Administration Protocol Glucagon 1 mg 09/22/24 14:55 Glucagon 1 Mg/Ml Syringe IM X1 PRN Hypoglycemia Protocol Guaifenesin 2 tablet 09/18/24 22:00 09/26/24 08:38 Guaifenesin/D-Methorphan Tab.Sr.12h PO Not Given BID CAROL Heparin Sodium (Porcine) 5,000 unit 09/17/24 22:00 09/26/24 13:51 Heparin Injection (Vial) 5,000 Unit/Ml Vial SC Not Given Q8 CAROL Hydralazine HCl 10 mg 09/24/24 14:00 09/26/24 13:51 Hydralazine 10 Mg Tablet PO Not Given TID CAROL Protocol Hydralazine HCl 10 mg 09/26/24 10:20 09/26/24 10:40 Hydralazine 20 Mg/Ml Vial IV 10 mg Q6H PRN PRN Administration SBP GREATER THAN 160 Protocol Sodium Chloride 500 mls @ 15 mls/hr 09/17/24 21:22 IV .[id number] PRN Saline Flush Sodium Chloride 500 mls @ 15 mls/hr 09/17/24 21:22 IV .[id number] PRN Additional IVPB Infusion Sodium Chloride 500 mls @ 15 mls/hr 09/19/24 22:43 IV .[id number] PRN Saline Flush Sodium Chloride 500 mls @ 15 mls/hr 09/19/24 22:43 IV .[id number] PRN Additional IVPB Infusion Dextrose 250 mls @ 0 mls/hr 09/22/24 14:55 Dextrose 10%-Water IV .Q0M PRN HYPOGLYCEMIA Protocol As Directed Insulin Human Lispro 0 unit 09/22/24 18:00 09/26/24 11:56 Insulin Lispro 100 Unit/Ml Insuln.Pen SC Not Given Q6 CAROL Protocol Isosorbide Mononitrate 30 mg 09/19/24 10:00 09/26/24 08:37 Isosorbide Mononitrate 30 Mg Tablet PO Not Given DAILY [facility] Protocol Metoprolol Tartrate 5 mg 09/23/24 21:21 09/26/24 05:56 Metoprolol Tartrate 5 Mg/5 Ml Vial IV 5 mg Q6H PRN PRN Administration BP >160 Protocol Metoprolol Tartrate 25 mg 09/24/24 10:00 09/26/24 08:38 Metoprolol Tartrate 25 Mg Tablet PO Not Given BID [facility] Protocol Nystatin 500,000 unit 09/23/24 14:00 09/26/24 10:40 Nystatin 500,000 Unit/5 Ml Udc PO 500,000 unit 4X/DAY CAROL Administration Ondansetron HCl 4 mg 09/17/24 21:09 09/18/24 19:33 Ondansetron 4 Mg/2 Ml Vial IV 4 mg Q8H PRN PRN Administration NAUSEA/VOMITING Polyethylene Glycol 17 gm 09/24/24 10:00 09/26/24 08:38 Polyethylene Glycol 3350 17 Gm Packet PO Not Given BID [facility] Sodium Chloride 10 - 40 ml 09/17/24 21:22 09/26/24 10:39 0.9% Saline Lock 10 Ml Syringe IV 10 ml UD PRN Administration SALINE FLUSH Sodium Chloride 10 - 40 ml 09/18/24 21:59 0.9% Saline Lock 10 Ml Syringe IV UD PRN SALINE FLUSH Sodium Chloride 10 - 40 ml 09/19/24 22:43 0.9% Saline Lock 10 Ml Syringe IV UD PRN SALINE FLUSH Tamsulosin HCl 0.4 mg 09/17/24 22:35 09/25/24 17:22 Tamsulosin Hcl 0.4 Mg Capsule PO Not Given DAILY@1730 [facility] Medical History Nephrotic syndrome History of COVID-19 Diabetes Home Medications ?Medication ?Instructions ?Recorded ?Last Taken ?Type furosemide 40 mg tablet 40 mg PO DAILY 7 days #7 tabs 09/16/24 09/17/24 Rx aspirin 81 mg tablet,delayed 81 mg PO DAILY 09/17/24 09/17/24 History release Allergy/AdvReac Type Severity Reaction Status Date / Time No Known Allergies Allergy Verified 09/17/24 16:53 Surgical History Hx of thumb surgery Social History Smoking Status: Former smoker Review of Systems (Anesthesia) ROS Narrative System reviewed and no additional complaints, except as documented.
--- NOTE | 2024-09-26 17:28 | OP.CCLET_ITS ---
09/26/2024 No Primary Care Physician Re : Upper GI endoscopy procedure for Papito Burns Dear Care Physician This procedure was performed on September. My impressions and recommendations are as follows: Impressions : - Normal esophagus. - Erythematous mucosa in the stomach. - No gross lesions in the duodenal bulb. - An endoscopically removable PEG placement was successfully completed. - No specimens collected. Recommendations : - Please follow the post-PEG recommendations including: Nutrition consult for formula and volume, advance food and medications per primary care provider, external bolster 1 cm from abdominal wall, remove dressing after 2 weeks, start using PEG today and clean site with soap and water daily and dry thoroughly. - Continue present medications. My findings are described in the full procedure note, which is enclosed. If I can be of further assistance, please feel free to contact me at . Sincerely, Praveen Friend, 09/26/2024 5:27:34 PM This report has been signed electronically.
--- NOTE | 2024-09-26 17:28 | OP.EGD_ITS ---
Patient Name: Papito Burns Procedure Date: 09/26/2024 4:31 PM Date of : 1955 Age: 69 Procedure: Upper GI endoscopy Indications: Place PEG because patient is unable to eat, Place PEG due to dysphagia, Place PEG due to impaired swallowing, Place PEG due to aspiration risk Providers: Praveen Madsen DO Medicines: Monitored Anesthesia Care Patient Profile: This is a 69 year old male. Refer to note in patient chart for documentation of history and physical. Patient has symptoms of acute cough, chronic dysphagia and dysphagia with both liquids and solids. Complications: No immediate complications. Procedure: Pre-Anesthesia Assessment: - Prior to the procedure, a History and Physical was performed, and patient medications and allergies were reviewed. The patient is competent. The risks and benefits of the procedure and the sedation options and risks were discussed with the patient. All questions were answered and informed consent was obtained. Patient identification and proposed procedure were verified by the physician in the pre-procedure area. Mental Status Examination: alert and oriented. Airway Examination: normal oropharyngeal airway and neck mobility. Respiratory Examination: clear to auscultation. CV Examination: normal. Prophylactic Antibiotics: The patient does not require prophylactic antibiotics. Prior Anticoagulants: The patient has taken no anticoagulant or antiplatelet agents except for NSAID medication. ASA Grade Assessment: II - A patient with mild systemic disease. After reviewing the risks and benefits, the patient was deemed in satisfactory condition to undergo the procedure. The anesthesia plan was to use monitored anesthesia care (MAC). Immediately prior to administration of medications, the patient was re-assessed for adequacy to receive sedatives. The heart rate, respiratory rate, oxygen saturations, blood pressure, adequacy of pulmonary ventilation, and response to care were monitored throughout the procedure. The physical status of the patient was re-assessed after the procedure. After obtaining informed consent, the endoscope was passed under direct vision. Throughout the procedure, the patient's blood pressure, pulse, and oxygen saturations were monitored continuously. The Endoscope was introduced through the mouth, and advanced to the fourth part of duodenum. The upper GI endoscopy was accomplished without difficulty. The patient tolerated the procedure well. Scope In: 4:46:14 PM Scope Out: 5:18:57 PM Total Procedure Duration Time 0 hours 32 minutes 43 seconds Findings: The examined esophagus was normal. Diffuse mildly erythematous mucosa with bleeding was found in the entire examined stomach. The patient was placed in the supine position for PEG placement. The stomach was insufflated to appose gastric and abdominal guerra. A site was located in the body of the stomach with good transillumination for placement. The abdominal wall was marked and prepped in a sterile manner. The area was anesthetized with 1 mL of 0.5% lidocaine. The trocar needle was introduced through the abdominal wall and into the stomach under direct endoscopic view. A snare was introduced through the endoscope and opened in the gastric lumen. The guide wire was passed through the trocar and into the open snare. The snare was closed around the guide wire. The endoscope and snare were removed, pulling the wire out through the mouth. A skin incision was made at the site of needle insertion. The endoscopically removable 20 Fr Bard gastrostomy tube was lubricated. The G-tube was tied to the guide wire and pulled through the mouth and into the stomach. The trocar needle was removed, and the gastrostomy tube was pulled out from the stomach through the skin. The external bumper was attached to the gastrostomy tube, and the tube was cut to remove the guide wire. The final position of the gastrostomy tube was confirmed by relook endoscopy, and skin marking noted to be 4 cm at the external bumper. The final tension and compression of the abdominal wall by the PEG tube and external bumper were checked and revealed that the bumper was loose and lightly touching the skin. The feeding tube was capped, and the tube site cleaned and dressed. No gross lesions were noted in the duodenal bulb. Impression: - Normal esophagus. - Erythematous mucosa in the stomach. - No gross lesions in the duodenal bulb. - An endoscopically removable PEG placement was successfully completed. - No specimens collected. Recommendation: - Please follow the post-PEG recommendations including: Nutrition consult for formula and volume, advance food and medications per primary care provider, external bolster 1 cm from abdominal wall, remove dressing after 2 weeks, start using PEG today and clean site with soap and water daily and dry thoroughly. - Continue present medications. Procedure Code(s): --- Professional --- 54199, Esophagogastroduodenoscopy, flexible, transoral; with directed placement of percutaneous gastrostomy tube CPT copyright 2021 [employer]. All rights reserved. The codes documented in this report are preliminary and upon medical biller/coder review may be revised to meet current compliance requirements. Praveen Madsen DO 09/26/2024 5:27:34 PM This report has been signed electronically. Number of Addenda: 0 Note Initiated On: 09/26/2024 4:31 PM
--- NOTE | 2024-09-26 17:32 | PCM.POST.ANE ---
Anesthesia: Postop Eval I Current Vital Signs Temperature: 97.9 F Pulse Rate: 94 Blood Pressure: 94/55 Respiratory Rate: 26 Pulse Ox: 100 Oxygen Delivery Method: Simple Mask Oxygen Flow Rate (L/min): 6 Assessment Airway patent: Yes Spontaneous unlabored respirations: Yes Mental status: Awake and Calm nausea: No Vomiting: No Anesthesia Complication: No Fluid Hydration Crystalloid volume administer (ml): 10 Total IV fluid infused: 10 Progress Note Post-operative progress note: initially upon arrival, pt breathing 36 times/min, visibly distressed and not responding well, on 6L SFM 100% O2 saturation, gave 20 mg IV of Lasix, see PACU charting, Dr. Canales aware and Dr. Madsen at bedside, to transfer to ICU, phenylephrine 100 mcg IV given with improvement of BP Anesthesia document: Postop Eval 1 completed: Yes
--- NOTE | 2024-09-26 17:51 | PN.HOSP_ITS ---
Hospitalist Note Notified by Dr. Madsen that patient was hypotensive and requring increased oxygen demands after PEG tube. Concern patient may worsen. Will transfer to ICU to monitor. Check CXR, ABG, troponin series, EKG. Could very well be post- anesthesia. Monitor.
--- NOTE | 2024-09-26 18:27 | PCM.POSTANE2 ---
Anesthesia Postop Eval I Sum Postop Eval Completion status Anesthesia document: Postop Eval 1 completed: Yes Anesthesia Postop Eval I Summary Anesthesia Postop Eval I Summary: Anesthesia Postop Eval I: Assessment Summary Airway patent Yes 09/26/24 17:36 SOFTWARE REQUIREMENTS [email or web address] Spontaneous unlabored Yes 09/26/24 17:36 SOFTWARE REQUIREMENTS ENGINEERSILVANA respirations Mental status Awake,Calm 09/26/24 17:36 SOFTWARE REQUIREMENTS [email or web address] nausea No 09/26/24 17:36 SOFTWARE REQUIREMENTS [email or web address].[email or web address] Vomiting No 09/26/24 17:36 SOFTWARE REQUIREMENTS [email or web address] Anesthesia Postop Eval I: Fluid Summary Crystalloid volume administer 10 09/26/24 17:36 SOFTWARE REQUIREMENTS [email or web address] (ml) Colloids volume administered ( ml) Blood Product volume administered (ml) Total IV fluid infused 10 09/26/24 17:36 SOFTWARE REQUIREMENTS [email or web address] Anesthesia Postop Eval I: Summary Notes Anesthesia Complication No 09/26/24 17:36 SOFTWARE REQUIREMENTS [email or web address] Anesthesia Complication Comment: Post-operative progress note initially upon 09/26/24 17:53 SHARAD arrival, pt breathing 36 times /min, visibly distressed and not responding well, on 6L SFM 100% O2 saturation, gave 20 mg IV of Lasix, see PACU charting , Dr. Canales aware and Dr. Madsen at bedside, to transfer to ICU, phenylephrine 100 mcg IV given with improvement of BP Anesthesia: Postop Eval II Evaluation Mental status: Awake Pain Level: 1 nausea: No Vomiting: No Progress Note Post-operative progress note: patient with increase resperaations, given 20 iv lasix. hospitalist aware. pox 99% 3lnc. hospitalist request patient to ICU to monitor Complications Anesthesia Complication: No
--- NOTE | 2024-09-26 19:24 | SUR.PHASEI ---
REPORT GIVEN TO ICU ROSARIO.
--- NOTE | 2024-09-26 19:32 | EKG12_ITS ---
Test Reason : DYSP Blood Pressure : */* mmHG Vent. Rate : 96 BPM Atrial Rate : 96 BPM P-R Int : 144 ms QRS Dur : 92 ms QT Int : 348 ms P-R-T Axes : 88 94 75 degrees QTcB Int : 439 ms Normal sinus rhythm Possible Left atrial enlargement Rightward axis Incomplete right bundle branch block Nonspecific ST and T wave abnormality Abnormal ECG Confirmed by ARUNA MARION, AMIE ([id number]), image editor STANISLAW HSU ([id number]) on 10/02/2024 2:38:46 PM Referred By: Gallo Confirmed By: AMIE VALDOVINOS MD
--- NOTE | 2024-09-26 19:45 | RAD_ITS ---
EXAM: XR CHEST, 1 VIEW CLINICAL INDICATION: hypoxia, PEG TUBE PLACEMENT TECHNIQUE: Frontal view of the chest. COMPARISON: September 25, 2024 FINDINGS: LUNGS AND PLEURAL SPACES: There is persistent unchanged dense consolidation in the medial left lung base obscuring the margin of the descending thoracic aorta and the medial third of the left hemidiaphragm. There is new mild increased hazy opacity and increased linear markings in the right lung base, partially obscuring the right heart margin. Slight persistent blunting of the right lateral costophrenic angle, presumed trace effusion. No pneumothorax. HEART: Unremarkable. Cardiac silhouette not enlarged. MEDIASTINUM: Central airways and mediastinal contour are unremarkable. BONES/JOINTS: Unremarkable. No acute fracture. SOFT TISSUES: Unremarkable. RAD/Chest 1 View (Portable) IMPRESSION: 1. Persistent dense left retrocardiac consolidation with obscured visualization of the medial left hemidiaphragm and descending thoracic aorta margin. 2. New mild patchy opacity in the right lung base and small section of obscured right heart margin suggesting right middle lobe infiltrate or edema. Electronically Signed: Brianna Padilla MD at 22:14 EST ,
[2024-09-26 20:19] LABS: Base Excess 6 mmol/L (-2 to +2); Bicarbonate 30.2 mmol/L (22-26); Blood Gas Specimen Type ART; Mode Not entered; O2 Delivery Device Cannula; PO2 57 mmHG (75-100); SITE Not entered; SO2 89 % (95-99); Total Carbon Dioxide 32 mmol/L; pCO2 47.8 mmHg (35-45); pH 7.41 (7.35-7.45)
[2024-09-26] MEDS: Albuterol 2.5 MG/3 ML VIAL.NEB. INHALATION (21:03)
--- NOTE | 2024-09-26 21:07 | PCM.HOSP.N ---
Hospitalist Note Patient post operatively with dyspnea, increased RR, accessory muscle usage, improved after aerosols, ABG obtained w/ mild CO2 increase, will place on BIPAP short term, also missed lasix dose which was now given with HF history.
[2024-09-26 21:10] LABS: Troponin-I HS 214 pg/mL (3.0-78.0)
[2024-09-26] MEDS: Heparin Injection (Vial) 5,000 UNIT/ML VIAL 5000 UNIT SC (21:11)
--- NOTE | 2024-09-26 21:25 | EKG12_ITS ---
Test Reason : DYSP Blood Pressure : */* mmHG Vent. Rate : 96 BPM Atrial Rate : 96 BPM P-R Int : 150 ms QRS Dur : 92 ms QT Int : 422 ms P-R-T Axes : 84 89 72 degrees QTcB Int : 533 ms Normal sinus rhythm Possible Left atrial enlargement Incomplete right bundle branch block Nonspecific ST and T wave abnormality Abnormal ECG When compared with ECG of 19-Sep-2024 11:43, QRS axis Shifted right Nonspecific T wave abnormality now evident in Inferior leads Confirmed by IZZY MARION, AMRITA ([id number]), advertising editor DIANA DOVER ([id number]) on 10/03/2024 5:52:57 A M Referred By: Gallo Confirmed By: AMRITA MAGANA MD
[2024-09-26 21:53] LABS: Bedside Glucose 133 mg/dL (74-106)
[2024-09-27] VITALS (37 sets, daily range): BP systolic 116–152; BP diastolic 67–119; PULSE 70–103; RESP 12–34; TEMP 37–39.4; O2SAT 91–100; BMI 19.8
--- NOTE | 2024-09-27 00:08 | PCM.HOSP.N ---
Hospitalist Note Patient with onset fever, worsened hypoxia, remains improved on BIPAP but still elevated FiO2 needs. Will start zosyn with MRSA screen requested, will obtain bld culture x 2, will obtain sputum/urine antigens.
[2024-09-27] MEDS: Acetaminophen 650 MG Suppository RC (00:17)
[2024-09-27 01:11] LABS: Bedside Glucose 147 mg/dL (74-106)
[2024-09-27] MEDS: Piperacil/Tazobactam 3.375 GM in 0.9% Normal Saline (50mL MB+) 50 ML IV ×4 (01:39→21:56)
[2024-09-27 01:51] LABS: Absolute Lymphocyte Count 0.52 X10^3/uL (0.83-4.51); Absolute Neutrophil Count 7.3 X10^3/uL (2.0-7.7); Basophil# 0.02 X10^3/uL; Basophil% 0.2 % (0-1); Eosinophil# 0.01 X10^3/uL; Eosinophils% 0.1 % (0-5); Hematocrit 48.5 % (40-54); Hemoglobin 15.1 g/dL (13.0-16.5); Lymphocyte # 0.52 X10^3/ul (0.83-4.51); Lymphocyte % 6.2 % (19-41); Mean Corp Hgb Conc 31.1 g/dL (32-36); Mean Corpuscular Hgb 27.6 pg (27.0-32.0); Mean Corpuscular Volume 88.5 fL (80-94); Mean Platelet Vol. 8.8 fl (6.2-12.0); Monocyte# 0.57 X10^3/uL; Monocyte% 6.8 % (0-10); NRBC Flagged by Analyzer 0 % (0-5); Neutrophil # 7.25 X10^3/uL (2.7-7.7); POSITIVE DIFFERENTIAL YES; POSITIVE MORPHOLOGY YES; Platelet Count 298 K/mm3 (150-450); RBC Distribution Width CV 14.3 % (11.6-14.6); RBC Distribution Width SD 45.9 fl (35.1-43.9); Red Blood Count 5.48 M/mm3 (4.6-6.2); White Blood Count 8.4 K/mm3 (4.4-11.0)
[2024-09-27 02:02] LABS: Differential Indicated SCAN CRITERIA MET
[2024-09-27 02:06] LABS: Albumin, Serum 2.7 g/dL (3.2-5.0); Anion Gap 11 (5-15); BUN 72 mg/dL (7-18); BUN/Creat Ratio 36.7 RATIO (10-20); Calcium,Total 9.5 mg/dL (8.5-10.1); Chloride 102 mmol/L (98-107); Creatinine, Serum 1.96 mg/dL (0.70-1.30); EST Glomerular Filtration Rate 36 mL/min (>60); Est Glom Filt Rate - Afr Amer 44 mL/min (>60); Estimated Creatinine Clearance 28.68 ml/min; Glucose 172 mg/dL (74-106); Phosphorus 4.8 mg/dL (2.5-4.9); Potassium 3.6 mmol/L (3.5-5.1); Sodium Level 145 mmol/L (136-145)
[2024-09-27 03:06] LABS: Differential Comment SCANNED
[2024-09-27] MEDS: Insulin Lispro 100 UNIT/ML INSULN.PEN SC ×3 (06:50→17:22)
[2024-09-27] MEDS: Heparin Injection (Vial) 5,000 UNIT/ML VIAL 5000 UNIT SC ×3 (06:51→21:55)
[2024-09-27 07:13] LABS: Bedside Glucose 161 mg/dL (74-106)
--- NOTE | 2024-09-27 07:13 | PN.HOSP_ITS ---
Reason for Visit Reason for Visit: Diagnoses Hyperkalemia (09/17/24) Cardiac arrest, cause unspecified (09/17/24) Heart failure, unspecified (09/17/24) Pleural effusion, not elsewhere classified (09/17/24) Acute respiratory failure with hypoxia (09/17/24) Nephrotic syndrome with unspecified morphologic changes (09/17/24) Acute kidney failure, unspecified (09/17/24) Patent foramen ovale (09/17/24) Bradycardia, unspecified (09/17/24) Other forms of dyspnea (09/17/24) Dysphagia, unspecified (09/17/24) Patient's noncompliance with other medical treatment and regimen due to unspecified reason (09/17/24) Subjective Subjective Events reviewed. Still on BiPAP. Objective Data Objective Data Vital Signs: Vital Signs Temp Pulse Resp BP Pulse Ox O2 Del Method O2 Flow Rate 37.9 C H 83 21 H 146/69 H 95 Bi-pap 15 09/27/24 07:00 09/27/24 07:00 09/27/24 07:00 09/27/24 07:00 09/27/24 07:00 09/27/24 07:00 09/26/24 21:00 FiO2 70 09/27/24 07:00 Oxygen Flow Rate (L/min) 15 Oxygen Delivery Method Bi-pap Weight: 57.6 kg Body Mass Index (BMI) 19.8 Intake & Output: Intake and Output for Last 24 Hours 09/25/24 09/26/24 09/27/24 23:59 23:59 23:59 Intake Total 0 / 0 0 / 50 100.00 / 100.00 Output Total 2470 / 3345 1825 / 1950 250 / 250 Balance -2470 / -3345 -1825 / -1900 -150.00 / -150.00 Lab / Micro Data 09/27/24 01:37 09/27/24 01:37 Labs: Laboratory Results - last 24 hr 09/26/24 08:53: Sodium 144, Potassium 3.5, Chloride 102, Carbon Dioxide 33.0 H, Anion Gap 9, BUN 59 H, Creatinine 1.43 H, Estim Creat Clear Calc 39.31, Est GFR (MDRD) Af Amer 63, Est GFR (MDRD) Non-Af 52 L, BUN/Creatinine Ratio 41.3 H, G lucose 140 H, Calcium 9.7 09/26/24 11:39: POC Glucose 143 H 09/26/24 20:35: Troponin I High Sens 214 H* 09/26/24 21:14: POC Glucose 133 H 09/27/24 00:52: POC Glucose 147 H 09/27/24 01:37: WBC 8.4, RBC 5.48, Hgb 15.1, Hct 48.5, MCV 88.5, MCH 27.6, MCHC 31.1 L, RDW Std Deviation 45.9 H, RDW Coeff of Agus 14.3, Plt Count 298, MPV 8.8, Immature Gran % (Auto) 0.700, Neut % (Auto) 86.0 H, Lymph % (Auto) 6.2 L, Burt % (Auto) 6.8, Eos % (Auto) 0.1, Baso % (Auto) 0.2, Absolute Neuts (auto) 7.3, A bsolute Lymphs (auto) 0.52 L, Nucleated RBC % 0, Differential Comment SCANNED, Sodium 145, Potassium 3.6, Chloride 102, Carbon Dioxide 32.0, Anion Gap 11, BUN 72 H, Creatinine 1.96 H, Estim Creat Clear Calc 28.68, Est GFR (MDRD) Af Amer 44 L, Est GFR (MDRD) Non-Af 36 L, BUN/Creatinine Ratio 36.7 H, Glucose 172 H, Calcium 9.5, Phosphorus 4.8, Albumin 2.7 L Micro: Microbiology 09/27/24 05:30 Urine Catheter - [place] Streptococcus pneumoniae Antigen (M - Final 09/27/24 05:30 Urine Catheter - [place] Legionella Antigen - Final 09/19/24 12:30 Fluid - Pleural (Lung) Gram Stain - Final 09/19/24 12:30 Fluid - Pleural (Lung) Body Fluid Culture - Final Culture exhibits no growth. 09/19/24 12:30 Fluid - Pleural (Lung) Anaerobic Culture - Final No growth in 5 days. 09/18/24 18:30 Blood Culture (Wb) - Anticubital Right Blood Culture - Final No growth in 5 days. 09/18/24 23:38 Stool Ova and Parasites - Final 09/19/24 10:28 Sputum, Induced/Lukens Gram Stain - Final 09/19/24 10:28 Sputum, Induced/Lukens Respiratory Culture - Final Culture exhibits no growth. 09/19/24 16:00 Urine Catheter - Catheter Legionella Antigen - Final 09/19/24 16:00 Urine Catheter - Catheter Streptococcus pneumoniae Antigen (M - Final 09/19/24 13:13 Nasal Secretion MRSA (PCR) - Final 09/19/24 13:12 Mucosa - Nasopharyngeal SARS-CoV-2, Influenza & RSV (PCR) - Final 09/18/24 23:38 Stool Clostridioides difficile (PCR) - Final 09/18/24 17:33 Mucosa - Nasopharyngeal Respiratory Panel (PCR) - Final ABG Data ABG results: ABG 09/26/24 20:13 Specimen Type ART Sample Site Not entered pH 7.41 Bicarbonate Actual 30.2 H Total CO2 32 Base Excess 6 H O2 Saturation 89 L O2 % 5.0 ABG pCO2 47.8 H ABG pO2 57 L O2 Delivery Device Cannula Vent Mode Not entered Radiography Diagnostic Testing: Radiology Impression Chest X-Ray 09/26/24 19:45 IMPRESSION: 1. Persistent dense left retrocardiac consolidation with obscured visualization of the medial left hemidiaphragm and descending thoracic aorta margin. 2. New mild patchy opacity in the right lung base and small section of obscured right heart margin suggesting right middle lobe infiltrate or edema. Electronically Signed: Brianna Padilla MD at 22:14 EST , Rhythm Strip Rhythm Strip: Sinus Rhythm Rate: 60 Physical Exam Const alert and no apparent distress Constitutional Narrative: on BIPAP HEENT head/scalp atraumatic and moist oral mucous membranes Resp normal respiratory effort and no retractions Resp Narrative: coarse BS bilaterally. Cardio regular rate, regular rhythm, S1 normal heart sound and S2 normal heart sound GI normal to inspection, nondistended, normoactive bowel sounds, soft to palpation, non-tender and non-distended Neuro Sensorium / Orientation: awake and alert Assessment & Plan Assessment/Plan (1) CHF (congestive heart failure): QUALIFIERS: Heart failure chronicity: acute on chronic Heart failure type: unspecified Qualified Code(s): I50.9 - Heart failure, unspecified (2) Hyperkalemia: (3) JAMES (acute kidney injury): PLAN: Plan Cardiac arrest * occurred on 09/18. Bradycardia then PEA noted. Had successful ROSC after 6 minutes of high-quality CPR. Cardiology felt bradyarrhythmia may have been related vasovagal event from having a BM. * Had another event on 09/[address] scan. Again, noted bradycardia and PEA. Intubated by Dr. Rivas. Had successful ROSC. Another code blue was called on the , but no note of CPR, this may have been called due to burst cuff on ETT that was replaced. Acute HFrEF * EF 35% * on furosemide 60 TID. Metoprolol tartrate 25 BID. No ACEi/ARB given JAMES, so he is on isosorbide and hydralazine. * With pleural effusions s/p thoracentesis. Acute hypoxic respiratory failure * intubated on 09/19 during cardiac arrest. extubated 09/23. Was doing well until his PEG on 09/26 where he was hypoxic. New RML infiltrate. Now on BiPAP. Suspect aspiration. * on Pip/tazo Iatrogenic pneumothorax * resolved * thoracentesis on 09/19, then chest tube placed same day. * pulmonary managing chest tube. * Chest tube to waterseal. Tentative plan to remove chest tube on the . JAMES * improving. But worse 09/27 * nephrology following * DC furosemide. Dysphagia * DW speech therapy. They feel that patient will recover slowly. * PEG placed 09/26 Debility * very weak overall * Will need SNF upon discharge. Chronic conditions: * BPH: tamsulosin VTE prophylaxis: SQ heparin. Charges/Coding Visit Charges Inpatient E&M: 36410 Subs Hosp L2
[2024-09-27] MEDS: Polyethylene Glycol 3350 17 GM PACKET GT (08:36)
[2024-09-27] MEDS: NYSTATIN 500,000 UNIT/5 ML UDC 500000 UNIT GT ×4 (08:36→21:55)
[2024-09-27] MEDS: Metoprolol Tartrate 25 MG Tablet GT ×2 (08:38→21:55)
[2024-09-27] MEDS: CHLORHEXIDINE GLUC 2% CLOTH 1 EACH TOWELETTE TOPICAL (08:40)
--- NOTE | 2024-09-27 10:36 | PCM.PN.REN ---
Subjective Subjective Following for JAMES on CKD. The patient became hypoxic and febrile overnight. He required NIPPV. He denies CP, nausea or diarrhea. He complains of intermittent dyspnea. Objective Data Objective Data Vital Signs: Vital Signs Temp Pulse Resp BP Pulse Ox O2 Del Method O2 Flow Rate 98.6 F 72 16 137/77 H 94 Bi-pap 15 09/27/24 10:00 09/27/24 10:00 09/27/24 10:00 09/27/24 10:00 09/27/24 10:00 09/27/24 10:00 09/26/24 21:00 FiO2 50 09/27/24 10:00 Oxygen Flow Rate (L/min) 15 Oxygen Delivery Method Bi-pap Weight: 57.6 kg Body Mass Index (BMI) 19.8 Intake & Output: Intake and Output for Last 24 Hours 09/25/24 09/26/24 09/27/24 23:59 23:59 23:59 Intake Total 0 / 0 0 / 50 100.00 / 100.00 Output Total 2470 / 3345 1825 / 1950 250 / 250 Balance -2470 / -3345 -1825 / -1900 -150.00 / -150.00 Lab / Micro Data 09/28/24 06:03 09/28/24 06:03 Labs: Laboratory Results - last 24 hr 09/26/24 11:39: POC Glucose 143 H 09/26/24 20:35: Troponin I High Sens 214 H* 09/26/24 21:14: POC Glucose 133 H 09/27/24 00:52: POC Glucose 147 H 09/27/24 01:37: WBC 8.4, RBC 5.48, Hgb 15.1, Hct 48.5, MCV 88.5, MCH 27.6, MCHC 31.1 L, RDW Std Deviation 45.9 H, RDW Coeff of Agus 14.3, Plt Count 298, MPV 8.8, Immature Gran % (Auto) 0.700, Neut % (Auto) 86.0 H, Lymph % (Auto) 6.2 L, [place] % (Auto) 6.8, Eos % (Auto) 0.1, Baso % (Auto) 0.2, Absolute Neuts (auto) 7.3, Absolute Lymphs (auto) 0.52 L, Nucleated RBC % 0, Differential Comment SCANNED, Sodium 145, Potassium 3.6, Chloride 102, Carbon Dioxide 32.0, Anion Gap 11, BUN 72 H, Creatinine 1.96 H, Estim Creat Clear Calc 28.68, Est GFR (MDRD) Af Amer 44 L, Est GFR (MDRD) Non-Af 36 L, BUN/Creatinine Ratio 36.7 H, Glucose 172 H, Calcium 9.5, Phosphorus 4.8, Albumin 2.7 L 09/27/24 06:49: POC Glucose 161 H Micro: Microbiology 09/27/24 05:30 Nasal Secretion MRSA (PCR) - Final 09/27/24 05:30 Urine Catheter - [place] Streptococcus pneumoniae Antigen (M - Final 09/27/24 05:30 Urine Catheter - [place] Legionella Antigen - Final 09/19/24 12:30 Fluid - Pleural (Lung) Gram Stain - Final 09/19/24 12:30 Fluid - Pleural (Lung) Body Fluid Culture - Final Culture exhibits no growth. 09/19/24 12:30 Fluid - Pleural (Lung) Anaerobic Culture - Final No growth in 5 days. 09/18/24 18:30 Blood Culture (Wb) - Anticubital Right Blood Culture - Final No growth in 5 days. 09/18/24 23:38 Stool Ova and Parasites - Final 09/19/24 10:28 Sputum, Induced/Lukens Gram Stain - Final 09/19/24 10:28 Sputum, Induced/Lukens Respiratory Culture - Final Culture exhibits no growth. 09/19/24 16:00 Urine Catheter - Catheter Legionella Antigen - Final 09/19/24 16:00 Urine Catheter - Catheter Streptococcus pneumoniae Antigen (M - Final 09/19/24 13:13 Nasal Secretion MRSA (PCR) - Final 09/19/24 13:12 Mucosa - Nasopharyngeal SARS-CoV-2, Influenza & RSV (PCR) - Final 09/18/24 23:38 Stool Clostridioides difficile (PCR) - Final 09/18/24 17:33 Mucosa - Nasopharyngeal Respiratory Panel (PCR) - Final ABG Data ABG results: ABG 09/26/24 20:13 Specimen Type ART Sample Site Not entered pH 7.41 Bicarbonate Actual 30.2 H Total CO2 32 Base Excess 6 H O2 Saturation 89 L O2 % 5.0 ABG pCO2 47.8 H ABG pO2 57 L O2 Delivery Device Cannula Vent Mode Not entered Radiography Diagnostic Testing: Radiology Impression Chest X-Ray 09/26/24 19:45 IMPRESSION: 1. Persistent dense left retrocardiac consolidation with obscured visualization of the medial left hemidiaphragm and descending thoracic aorta margin. 2. New mild patchy opacity in the right lung base and small section of obscured right heart margin suggesting right middle lobe infiltrate or edema. Electronically Signed: Brianna Padilla MD at 22:14 EST Reading Location ID and State: [facility] / [place] Tel , Service support , Rhythm Strip Rhythm Strip: Sinus Rhythm Rate: 60 Physical Exam Narrative General appearance: Ill-appearing. HEENT: Normocephalic, atraumatic. Mucous membrane dry. Cardiovascular: Normal S1, S2. Lungs: Decreased BS at bases. Abdomen: Normal bowel sounds, soft, nontender. Extremities: No clubbing, cyanosis or edema. Const average body habitus General Appearance: patient mechanically ventilated HEENT normocephalic Neck no lymphadenopathy Resp clear to auscultation bilaterally Auscultation: diminished lung sounds Cardio regular rate Rate: bradycardia GI non-distended Auscultation: normoactive bowel sounds Palpation: soft and no hepatosplenomegaly Bladder / Kidney Exam: catheter in place Extremity General Extremity: edema bilateral lower extremity Skin no rashes or lesions noted Neuro Sensorium / Orientation: sedated on vent Assessment & Plan Assessment/Plan (1) JAMES (acute kidney injury): (2) Congestive heart failure: (3) Hyperkalemia: PLAN: Plan Impression/Plan: The patient is a 69-year-old male with past history of type 2 diabetes mellitus, hypertension, HFrEF (EF 35%), hypothyroidism, and osteoarthritis. The patient presented to the hospital on 09/16/2024 with bradycardia and PEA arrest. The patient was also found to have decompensated systolic heart failure along with acute hypoxic respiratory failure requiring ventilation. Patient has clinically improved and was extubated on 09/23/2024. Nephrology is following for acute kidney injury. Acute kidney injury on probable chronic kidney disease. Baseline renal function is unknown. Patient presented to hospital with serum creatinine of 1.60 mg/dL on 09/16/2024. I suspect JAMES secondary to ischemic ATN related to decreased effective blood volume related to PEA arrest and heart failure. So far, serum creatinine has peaked at 2.35 mg/dL on 09/21/2024. Renal function has improved with supportive care and treatment of heart failure. Serum creatinine has decreased from 2.35 mg/dL on 09/21/2024 down to 1.50 mg/dL on 09/24/2024. Serum creatinine remains decreased further to 1.43 mg/dL on 09/26/2024. However, serum creatinine increased again today on 09/27/2024 up to 1.96 mg/dL. There was no periods of prolonged hypotension or hemodynamic instability on my review of EHR. However, the patient did develop fever/hypoxemia. Although patient has been on diuretic, his weight has not changed significantly in the past 3 days. Nevertheless, I agree with holding diuretic for now particularly since he was n.p.o most of the day on 09/26/2024. Recheck metabolic panel again later today to see if the rise in serum creatinine this morning is an outlier. Continue current supportive care, keeping MAP above 65 mmHg. If serum creatinine continues to rise in next 24h, I would consider limited fluid bolus since his chest x-ray from 09/26/2024 did not look wet. We will continue to monitor renal function, volume status, acid-base and electrolytes. Nephrology plan will be discussed with Dr. Holder
--- NOTE | 2024-09-27 11:11 | NURSING ---
Patient sitting in chair after working with PT/OT 1055 sats on monitor dropping to mid 80s, this RN entered room and patient leaning over bedside table with accessory muscle breathing, respiratory rate in the 40s, O2 sats dropping to high 70s, placed on 100% bipap, BP reading 51/34. With assistance from another RN, patient transferred back to bed, positioned in trendelenburg, sats recovered to 98% and BP improved to 121/76. Right lung sounds very diminished. Dr. Holder made aware. Respiratory therapist at bedside. After approximately 10 minutes, respiratory therapist weaned patient back to FiO2 50% on bipap and sats maintaining at 95%, will continue to monitor.
[2024-09-27 13:03] LABS: Bedside Glucose 195 mg/dL (74-106)
[2024-09-27] MEDS: Jevity 1.5 1,000 ML 15 ML GT (13:45)
[2024-09-27] MEDS: hydrALAZINE 10 MG Tablet GT ×2 (13:45→21:56)
[2024-09-27] MEDS: Ipratropium/Albuterol Sulfate 3 ML AMPUL.NEB INHALATION (15:10)
[2024-09-27 18:25] LABS: Bedside Glucose 154 mg/dL (74-106)
[2024-09-27 18:38] LABS: Albumin, Serum 2.5 g/dL (3.2-5.0); BUN 88 mg/dL (7-18); BUN/Creat Ratio 35.6 RATIO (10-20); Calcium,Total 9.2 mg/dL (8.5-10.1); Chloride 105 mmol/L (98-107); Creatinine, Serum 2.47 mg/dL (0.70-1.30); EST Glomerular Filtration Rate 28 mL/min (>60); Est Glom Filt Rate - Afr Amer 34 mL/min (>60); Glucose 178 mg/dL (74-106); Phosphorus 5.1 mg/dL (2.5-4.9); Potassium 3.5 mmol/L (3.5-5.1); Sodium Level 148 mmol/L (136-145)
[2024-09-27 20:33] LABS: Allen Test Positive; Base Excess 10 mmol/L (-2 to +2); Bicarbonate 33.5 mmol/L (22-26); Blood Gas Specimen Type ART; Mode Not entered; O2 Delivery Device BiPAP; PEEP 14; PO2 71 mmHG (75-100); RR 12; SITE L Brach; SO2 95 % (95-99); Total Carbon Dioxide 35 mmol/L; pCO2 43.7 mmHg (35-45); pH 7.49 (7.35-7.45)
[2024-09-27] MEDS: Acetaminophen 325 MG Tablet 650 MG GT (23:03)
[2024-09-27 23:27] LABS: Bedside Glucose 131 mg/dL (74-106)
[2024-09-28] VITALS (21 sets, daily range): BP systolic 105–164; BP diastolic 57–86; PULSE 66–84; RESP 12–23; TEMP 36.8–37.9; O2SAT 92–99; BMI 17.6
[2024-09-28] MEDS: Piperacil/Tazobactam 3.375 GM in 0.9% Normal Saline (50mL MB+) 50 ML IV ×2 (06:15→20:45)
[2024-09-28] MEDS: hydrALAZINE 10 MG Tablet GT ×3 (06:16→20:29)
[2024-09-28] MEDS: Insulin Lispro 100 UNIT/ML INSULN.PEN SC ×3 (06:16→17:16)
[2024-09-28] MEDS: Heparin Injection (Vial) 5,000 UNIT/ML VIAL 5000 UNIT SC ×3 (06:16→20:31)
[2024-09-28 06:22] LABS: Absolute Lymphocyte Count 0.91 X10^3/uL (0.83-4.51); Absolute Neutrophil Count 15.5 X10^3/uL (2.0-7.7); Basophil# 0.13 X10^3/uL; Basophil% 0.8 % (0-1); Hematocrit 43.4 % (40-54); Hemoglobin 13.3 g/dL (13.0-16.5); Lymphocyte # 0.91 X10^3/ul (0.83-4.51); Lymphocyte % 5.3 % (19-41); Mean Corp Hgb Conc 30.6 g/dL (32-36); Mean Corpuscular Hgb 27.6 pg (27.0-32.0); Mean Platelet Vol. 9.9 fl (6.2-12.0); Monocyte# 0.59 X10^3/uL; Monocyte% 3.4 % (0-10); NRBC Flagged by Analyzer 0 % (0-5); Neutrophil # 15.53 X10^3/uL (2.7-7.7); Neutrophil % 90.1 % (47-70); Platelet Count 259 K/mm3 (150-450); RBC Distribution Width CV 14.7 % (11.6-14.6); RBC Distribution Width SD 48.2 fl (35.1-43.9); Red Blood Count 4.82 M/mm3 (4.6-6.2); White Blood Count 17.2 K/mm3 (4.4-11.0)
[2024-09-28 06:24] LABS: Bedside Glucose 202 mg/dL (74-106)
[2024-09-28 06:31] LABS: Anion Gap 7 (5-15); BUN 94 mg/dL (7-18); BUN/Creat Ratio 34.9 RATIO (10-20); Chloride 107 mmol/L (98-107); Creatinine, Serum 2.69 mg/dL (0.70-1.30); EST Glomerular Filtration Rate 25 mL/min (>60); Est Glom Filt Rate - Afr Amer 30 mL/min (>60); Estimated Creatinine Clearance 18.77 ml/min; Glucose 242 mg/dL (74-106); Potassium 3.3 mmol/L (3.5-5.1); Sodium Level 147 mmol/L (136-145)
--- NOTE | 2024-09-28 07:05 | PN.HOSP_ITS ---
Reason for Visit Reason for Visit: Diagnoses Hyperkalemia (09/17/24) Cardiac arrest, cause unspecified (09/17/24) Heart failure, unspecified (09/17/24) Pleural effusion, not elsewhere classified (09/17/24) Acute respiratory failure with hypoxia (09/17/24) Nephrotic syndrome with unspecified morphologic changes (09/17/24) Acute kidney failure, unspecified (09/17/24) Patent foramen ovale (09/17/24) Bradycardia, unspecified (09/17/24) Other forms of dyspnea (09/17/24) Dysphagia, unspecified (09/17/24) Patient's noncompliance with other medical treatment and regimen due to unspecified reason (09/17/24) Subjective Subjective Weaned down to 6 liters. Had an event yesterday when he became acutely hypoxic. Denies abdominal pain. Objective Data Objective Data Vital Signs: Vital Signs Temp Pulse Resp BP Pulse Ox O2 Del Method O2 Flow Rate 37.4 C H 73 22 H 143/62 H 98 Nasal Cannula 6 09/28/24 06:00 09/28/24 06:16 09/28/24 06:00 09/28/24 06:16 09/28/24 06:00 09/28/24 06:00 09/28/24 06:00 FiO2 40 09/28/24 03:00 Oxygen Flow Rate (L/min) 6 Oxygen Delivery Method Nasal Cannula Weight: 51.2 kg Body Mass Index (BMI) 17.6 Intake & Output: Intake and Output for Last 24 Hours 09/26/24 09/27/24 09/28/24 23:59 23:59 23:59 Intake Total 0 / 50 448.75 / 648.75 420 / 420 Output Total 1825 / 1950 700 / 825 250 / 250 Balance -1825 / -1900 -251.25 / -176.25 170 / 170 Lab / Micro Data 09/28/24 06:03 09/28/24 06:03 Labs: Laboratory Results - last 24 hr 09/27/24 06:49: POC Glucose 161 H 09/27/24 12:43: POC Glucose 195 H 09/27/24 17:21: POC Glucose 154 H 09/27/24 18:00: Sodium 148 H, Potassium 3.5, Chloride 105, Carbon Dioxide 35.0 H , BUN 88 H, Creatinine 2.47 H, Estim Creat Clear Calc 23.00, Est GFR (MDRD) Af Amer 34 L, Est GFR (MDRD) Non-Af 28 L, BUN/Creatinine Ratio 35.6 H, Glucose 178 H, Calcium 9.2, Phosphorus 5.1 H, Albumin 2.5 L 09/27/24 23:00: POC Glucose 131 H 09/28/24 06:03: WBC 17.2 H, RBC 4.82, Hgb 13.3, Hct 43.4, MCV 90.0, MCH 27.6, M CHC 30.6 L, RDW Std Deviation 48.2 H, RDW Coeff of Agus 14.7 H, Plt Count 259, MPV 9.9, Immature Gran % (Auto) 0.400, Neut % (Auto) 90.1 H, Lymph % (Auto) 5.3 L, [place] % (Auto) 3.4, Eos % (Auto) 0.0, Baso % (Auto) 0.8, Absolute Neuts (auto) 15.5 H, Absolute Lymphs (auto) 0.91, Nucleated RBC % 0, Sodium 147 H, Potassium 3.3 L, Chloride 107, Carbon Dioxide 34.0 H, Anion Gap 7, BUN 94 H, Creatinine 2.69 H, Estim Creat Clear Calc 18.77, Est GFR (MDRD) Af Amer 30 L, Est GFR (MDRD) Non-Af 25 L, BUN/Creatinine Ratio 34.9 H, Glucose 242 H, Calcium 9.0 09/28/24 06:04: POC Glucose 202 H Micro: Microbiology 09/27/24 05:30 Nasal Secretion MRSA (PCR) - Final 09/27/24 05:30 Urine Catheter - [place] Streptococcus pneumoniae Antigen (M - Final 09/27/24 05:30 Urine Catheter - [place] Legionella Antigen - Final 09/19/24 12:30 Fluid - Pleural (Lung) Gram Stain - Final 09/19/24 12:30 Fluid - Pleural (Lung) Body Fluid Culture - Final Culture exhibits no growth. 09/19/24 12:30 Fluid - Pleural (Lung) Anaerobic Culture - Final No growth in 5 days. 09/18/24 18:30 Blood Culture (Wb) - Anticubital Right Blood Culture - Final No growth in 5 days. 09/18/24 23:38 Stool Ova and Parasites - Final 09/19/24 10:28 Sputum, Induced/Lukens Gram Stain - Final 09/19/24 10:28 Sputum, Induced/Lukens Respiratory Culture - Final Culture exhibits no growth. 09/19/24 16:00 Urine Catheter - Catheter Legionella Antigen - Final 09/19/24 16:00 Urine Catheter - Catheter Streptococcus pneumoniae Antigen (M - Final 09/19/24 13:13 Nasal Secretion MRSA (PCR) - Final 09/19/24 13:12 Mucosa - Nasopharyngeal SARS-CoV-2, Influenza & RSV (PCR) - Final 09/18/24 23:38 Stool Clostridioides difficile (PCR) - Final 09/18/24 17:33 Mucosa - Nasopharyngeal Respiratory Panel (PCR) - Final ABG Data ABG results: ABG 09/27/24 20:30 Specimen Type ART Sample Site L Brach pH 7.49 H Bicarbonate Actual 33.5 H Total CO2 35 Base Excess 10 H O2 Saturation 95 O2 % 40.0 ABG pCO2 43.7 ABG pO2 71 L Fred Test Positive Respiration Rate 12 O2 Delivery Device BiPAP Vent Mode Not entered Tidal Volume 500.0 POC PEEP 14 Rhythm Strip Rhythm Strip: Sinus Rhythm Rate: 60 Physical Exam Narrative POCUS: Indication for JAMES. Discussed with the patient's about the need for POCUS to better evaluate see if and give him additional IV fluids given his JAMES. He was agreeable. Using phased-array, the IVC was visualized and showed that was collapsible and actually very small caliber. Therefore I feel the patient could benefit from additional IV fluids given given his heart failure history. Additionally, kidneys were evaluated. Patient is status post left nephrectomy and obviously no left kidney was identified. Right kidney did not show any signs of hydronephrosis and no obvious nephrolithiasis. Const alert and no apparent distress Constitutional Narrative: weak voice. nontoxic. HEENT head/scalp atraumatic and moist oral mucous membranes Resp normal respiratory effort, no retractions, no use of accessory muscles and clear to auscultation bilaterally Cardio regular rate, regular rhythm, S1 normal heart sound and S2 normal heart sound GI normal to inspection, nondistended, normoactive bowel sounds, soft to palpation, non-tender and non-distended Extremity normal to inspection and full ROM Neuro Sensorium / Orientation: awake and alert Psych affect normal Assessment & Plan Assessment/Plan (1) CHF (congestive heart failure): QUALIFIERS: Heart failure chronicity: acute on chronic Heart failure type: unspecified Qualified Code(s): I50.9 - Heart failure, unspecified (2) Hyperkalemia: (3) JAMES (acute kidney injury): PLAN: Plan Cardiac arrest * occurred on 09/18. Bradycardia then PEA noted. Had successful ROSC after 6 minutes of high-quality CPR. Cardiology felt bradyarrhythmia may have been related vasovagal event from having a BM. * Had another event on 09/[address] scan. Again, noted bradycardia and PEA. Intubated by Dr. Rivas. Had successful ROSC. Another code blue was called on the , but no note of CPR, this may have been called due to burst cuff on ETT that was replaced. Acute HFrEF * Resolved EF 35% * Metoprolol tartrate 25 BID. No ACEi/ARB given JAMES, so he is on isosorbide and hydralazine. * With pleural effusions s/p thoracentesis. Acute hypoxic respiratory failure * intubated on 09/19 during cardiac arrest. extubated 09/23. Was doing well until his PEG on 09/26 where he was hypoxic. New RML infiltrate. Now on BiPAP. Suspect aspiration. * on Pip/tazo * weaned down to 6l/m Iatrogenic pneumothorax * resolved * thoracentesis on 09/19, then chest tube placed same day. * pulmonary managing chest tube. * Chest tube to waterseal. Tentative plan to remove chest tube on the . JAMES * Worsening yet again despite discontinuation of furosemide. * POCUS review on 09/28 showed collapsable IVC and no right sided hydronephrosis. Therefore, would benefit from additional IVF. * nephrology following Dysphagia * DW speech therapy. They feel that patient will recover slowly. * PEG placed 09/26/. Tube feeds started on 09/27. Debility * very weak overall * Will need SNF upon discharge. DM2 * a1c 6.6. * SSI Chronic conditions: * BPH: tamsulosin VTE prophylaxis: SQ heparin. Charges/Coding Visit Charges Inpatient E&M: 39972 Subs Hosp L3
[2024-09-28] MEDS: Polyethylene Glycol 3350 17 GM PACKET GT ×2 (07:54→20:30)
[2024-09-28] MEDS: NYSTATIN 500,000 UNIT/5 ML UDC 500000 UNIT GT (07:54)
[2024-09-28] MEDS: Metoprolol Tartrate 25 MG Tablet GT ×2 (07:55→20:30)
[2024-09-28] MEDS: Isosorbide Mononitrate 30 MG Tablet PO (07:56)
[2024-09-28] MEDS: 0.9% Normal Saline (1000mL) 1,000 ML 150 ML IV ×2 (07:57→08:21)
[2024-09-28] MEDS: CHLORHEXIDINE GLUC 2% CLOTH 1 EACH TOWELETTE TOPICAL (07:57)
[2024-09-28 12:39] LABS: Bedside Glucose 211 mg/dL (74-106)
--- NOTE | 2024-09-28 16:03 | CASEMGMT ---
Social Work SW met with pt and introduced self and role of SW. Pt is sitting up in bed and willing to visit with SW. Pt is pleasant and talking openly about events of hospitalization including multiple code blue events. SW provided active listening and support to pt as he discussed illness. SW broached topic of health care POA. Pt is agreeable to complete HCPOA at this time naming his brother Carroll as primary and brother Home as secondary. Documents completed and copy placed on pt chart. SW spoke with pt regarding likely need for SNF placement prior to return home for rehabilitation. Pt is not willing to go to a SNF at this time stating he feels he can return home with his brother. SW did discuss Carroll's limited ability to physically care for pt due to his own health issues. Pt continues to state he feels like he will be able to walk out of here. A list of SNF providers including quality and resource use data and consistent with the patient?s preferred geographic region, medical needs, and insurance network were provided from the [employer] Guide. SW informed pt that SW will continue to follow and come back in a few days to continue to discuss discharge plan. MATTEO Jeffers
--- NOTE | 2024-09-28 16:32 | PCM.PN.REN ---
Subjective Subjective Patient feels okay Wants to go home Remains n.p.o. Getting tube feeds Objective Data Objective Data Vital Signs: Vital Signs Temp Pulse Resp BP Pulse Ox O2 Del Method O2 Flow Rate 98.2 F 77 17 129/78 H 94 Nasal Cannula 4 09/28/24 10:33 09/28/24 14:32 09/28/24 10:33 09/28/24 14:32 09/28/24 10:33 09/28/24 10:33 09/28/24 10:33 FiO2 40 09/28/24 03:00 Oxygen Flow Rate (L/min) 4 Oxygen Delivery Method Nasal Cannula Weight: 51.2 kg Body Mass Index (BMI) 17.6 Intake & Output: Intake and Output for Last 24 Hours 09/26/24 09/27/24 09/28/24 23:59 23:59 23:59 Intake Total 0 / 50 448.75 / 648.75 1782.50 / 1782.50 Output Total 1825 / 1950 700 / 825 250 / 250 Balance -1825 / -1900 -251.25 / -176.25 1532.50 / 1532.50 Lab / Micro Data 09/28/24 06:03 09/28/24 06:03 Labs: Laboratory Results - last 24 hr 09/27/24 17:21: POC Glucose 154 H 09/27/24 18:00: Sodium 148 H, Potassium 3.5, Chloride 105, Carbon Dioxide 35.0 H, BUN 88 H, Creatinine 2.47 H, Estim Creat Clear Calc 23.00, Est GFR (MDRD) Af Amer 34 L, Est GFR (MDRD) Non-Af 28 L, BUN/Creatinine Ratio 35.6 H, Glucose 178 H, Calcium 9.2, Phosphorus 5.1 H, Albumin 2.5 L 09/27/24 23:00: POC Glucose 131 H 09/28/24 06:03: WBC 17.2 H, RBC 4.82, Hgb 13.3, Hct 43.4, MCV 90.0, MCH 27.6, MCHC 30.6 L, RDW Std Deviation 48.2 H, RDW Coeff of Agus 14.7 H, Plt Count 259, MPV 9.9, Immature Gran % (Auto) 0.400, Neut % (Auto) 90.1 H, Lymph % (Auto) 5.3 L, [place] % (Auto) 3.4, Eos % (Auto) 0.0, Baso % (Auto) 0.8, Absolute Neuts (auto) 15.5 H, Absolute Lymphs (auto) 0.91, Nucleated RBC % 0, Sodium 147 H, Potassium 3.3 L, Chloride 107, Carbon Dioxide 34.0 H, Anion Gap 7, BUN 94 H, Creatinine 2.69 H, Estim Creat Clear Calc 18.77, Est GFR (MDRD) Af Amer 30 L, Est GFR (MDRD) Non-Af 25 L, BUN/Creatinine Ratio 34.9 H, Glucose 242 H, Calcium 9.0 09/28/24 06:04: POC Glucose 202 H 09/28/24 12:16: POC Glucose 211 H Micro: Microbiology 09/27/24 05:30 Nasal Secretion MRSA (PCR) - Final 09/27/24 05:30 Urine Catheter - [place] Streptococcus pneumoniae Antigen (M - Final 09/27/24 05:30 Urine Catheter - [place] Legionella Antigen - Final 09/19/24 12:30 Fluid - Pleural (Lung) Gram Stain - Final 09/19/24 12:30 Fluid - Pleural (Lung) Body Fluid Culture - Final Culture exhibits no growth. 09/19/24 12:30 Fluid - Pleural (Lung) Anaerobic Culture - Final No growth in 5 days. 09/18/24 18:30 Blood Culture (Wb) - Anticubital Right Blood Culture - Final No growth in 5 days. 09/18/24 23:38 Stool Ova and Parasites - Final 09/19/24 10:28 Sputum, Induced/Lukens Gram Stain - Final 09/19/24 10:28 Sputum, Induced/Lukens Respiratory Culture - Final Culture exhibits no growth. 09/19/24 16:00 Urine Catheter - Catheter Legionella Antigen - Final 09/19/24 16:00 Urine Catheter - Catheter Streptococcus pneumoniae Antigen (M - Final 09/19/24 13:13 Nasal Secretion MRSA (PCR) - Final 09/19/24 13:12 Mucosa - Nasopharyngeal SARS-CoV-2, Influenza & RSV (PCR) - Final 09/18/24 23:38 Stool Clostridioides difficile (PCR) - Final 09/18/24 17:33 Mucosa - Nasopharyngeal Respiratory Panel (PCR) - Final ABG Data ABG results: ABG 09/27/24 20:30 Specimen Type ART Sample Site L Brach pH 7.49 H Bicarbonate Actual 33.5 H Total CO2 35 Base Excess 10 H O2 Saturation 95 O2 % 40.0 ABG pCO2 43.7 ABG pO2 71 L Fred Test Positive Respiration Rate 12 O2 Delivery Device BiPAP Vent Mode Not entered Tidal Volume 500.0 POC PEEP 14 Rhythm Strip Rhythm Strip: Sinus Rhythm Rate: 60 Physical Exam Narrative General appearance: Thin cachectic, answers questions appropriately HEENT: Normocephalic, atraumatic. Mucous membrane dry. Cardiovascular: Normal S1, S2. Lungs: Decreased BS at bases. Abdomen: Normal bowel sounds, soft, nontender. Extremities: No clubbing, cyanosis or edema. Const average body habitus General Appearance: patient mechanically ventilated HEENT normocephalic Neck no lymphadenopathy Resp clear to auscultation bilaterally Auscultation: diminished lung sounds Cardio regular rate Rate: bradycardia GI non-distended Auscultation: normoactive bowel sounds Palpation: soft and no hepatosplenomegaly Bladder / Kidney Exam: catheter in place Extremity General Extremity: edema bilateral lower extremity Skin no rashes or lesions noted Neuro Sensorium / Orientation: sedated on vent Assessment & Plan Assessment/Plan (1) JAMES (acute kidney injury): (2) Congestive heart failure: (3) Hyperkalemia: PLAN: Plan Impression/Plan: The patient is a 69-year-old male with past history of type 2 diabetes mellitus, hypertension, HFrEF (EF 35%), hypothyroidism, and osteoarthritis. The patient presented to the hospital on 09/16/2024 with bradycardia and PEA arrest. The patient was also found to have decompensated systolic heart failure along with acute hypoxic respiratory failure requiring ventilation. Patient has clinically improved and was extubated on 09/23/2024. Nephrology is following for acute kidney injury. Acute kidney injury on probable chronic kidney disease. Baseline renal function is unknown. Patient presented to hospital with serum creatinine of 1.60 mg/dL on 09/16/2024. I suspect JAMES secondary to ischemic ATN related to decreased effective blood volume related to PEA arrest and heart failure. So far, serum creatinine has peaked at 2.35 mg/dL on 09/21/2024. Renal function has improved with supportive care and treatment of heart failure. Serum creatinine has decreased from 2.35 mg/dL on 09/21/2024 down to 1.50 mg/dL on 09/24/2024. Serum creatinine remains decreased further to 1.43 mg/dL on 09/26/2024. However, serum creatinine increased again today on 09/27/2024 up to 1.96 mg/dL. There was no periods of prolonged hypotension or hemodynamic instability on my review of EHR. However, the patient did develop fever/hypoxemia. -Serum creatinine bumped to 2.69 mg/dL with worsening azotemia -Clinically not volume overloaded -Continue to hold diuretics -Start LR 75 cc an hour for 10 hours -BMP in the morning
[2024-09-28] MEDS: Tamsulosin HCl 0.4 MG Capsule PO (17:17)
[2024-09-28 18:05] LABS: Bedside Glucose 206 mg/dL (74-106)
[2024-09-28] MEDS: Jevity 1.5 1,000 ML 45 ML GT (20:29)
[2024-09-28] MEDS: guaiFENesin/D-Methorphan TAB.SR.12H 2 TABLET PO (20:30)
[2024-09-28] MEDS: 0.9% Saline Lock 10 ML Syringe IV (20:34)
[2024-09-28 23:26] LABS: Bedside Glucose 144 mg/dL (74-106)
[2024-09-29] VITALS (13 sets, daily range): BP systolic 128–147; BP diastolic 59–100; PULSE 64–80; RESP 12–22; TEMP 36.8–37.3; O2SAT 93–99; BMI 18.0
--- NOTE | 2024-09-29 01:03 | CPS ---
PAP pressures changed to 16/10 for patient comfort.
[2024-09-29] MEDS: Heparin Injection (Vial) 5,000 UNIT/ML VIAL 5000 UNIT SC ×3 (06:04→20:39)
[2024-09-29] MEDS: hydrALAZINE 10 MG Tablet GT ×3 (06:04→20:39)
[2024-09-29] MEDS: Insulin Lispro 100 UNIT/ML INSULN.PEN SC ×4 (06:16→23:47)
[2024-09-29 06:34] LABS: Absolute Lymphocyte Count 0.91 X10^3/uL (0.83-4.51); Absolute Neutrophil Count 11.2 X10^3/uL (2.0-7.7); Basophil# 0.03 X10^3/uL; Basophil% 0.2 % (0-1); Eosinophil# 0.05 X10^3/uL; Eosinophils% 0.4 % (0-5); Hematocrit 39.2 % (40-54); Hemoglobin 11.8 g/dL (13.0-16.5); Lymphocyte # 0.91 X10^3/ul (0.83-4.51); Lymphocyte % 7.2 % (19-41); Mean Corp Hgb Conc 30.1 g/dL (32-36); Mean Corpuscular Hgb 27.7 pg (27.0-32.0); Mean Platelet Vol. 9.8 fl (6.2-12.0); Monocyte% 3.2 % (0-10); NRBC Flagged by Analyzer 0 % (0-5); Neutrophil # 11.15 X10^3/uL (2.7-7.7); Neutrophil % 88.2 % (47-70); Platelet Count 237 K/mm3 (150-450); RBC Distribution Width CV 15.1 % (11.6-14.6); RBC Distribution Width SD 51.1 fl (35.1-43.9); Red Blood Count 4.26 M/mm3 (4.6-6.2); White Blood Count 12.6 K/mm3 (4.4-11.0)
[2024-09-29 07:08] LABS: Anion Gap 5 (5-15); BUN 98 mg/dL (7-18); Calcium,Total 8.6 mg/dL (8.5-10.1); Chloride 112 mmol/L (98-107); Creatinine, Serum 2.45 mg/dL (0.70-1.30); EST Glomerular Filtration Rate 28 mL/min (>60); Est Glom Filt Rate - Afr Amer 34 mL/min (>60); Estimated Creatinine Clearance 21.05 ml/min; Glucose 267 mg/dL (74-106); Potassium 3.2 mmol/L (3.5-5.1); Sodium Level 151 mmol/L (136-145)
[2024-09-29 07:30] LABS: Bedside Glucose 248 mg/dL (74-106)
--- NOTE | 2024-09-29 08:17 | PN.HOSP_ITS ---
Reason for Visit Reason for Visit: Diagnoses Hyperkalemia (09/17/24) Cardiac arrest, cause unspecified (09/17/24) Heart failure, unspecified (09/17/24) Pleural effusion, not elsewhere classified (09/17/24) Acute respiratory failure with hypoxia (09/17/24) Nephrotic syndrome with unspecified morphologic changes (09/17/24) Acute kidney failure, unspecified (09/17/24) Patent foramen ovale (09/17/24) Bradycardia, unspecified (09/17/24) Other forms of dyspnea (09/17/24) Dysphagia, unspecified (09/17/24) Patient's noncompliance with other medical treatment and regimen due to unspecified reason (09/17/24) Subjective Subjective Denies new complaints. Objective Data Objective Data Vital Signs: Vital Signs Temp Pulse Resp BP Pulse Ox O2 Del Method O2 Flow Rate 37.3 C 74 20 H 139/87 H 93 Nasal Cannula 5 09/29/24 06:01 09/29/24 06:04 09/29/24 06:01 09/29/24 06:01 09/29/24 07:39 09/29/24 07:39 09/29/24 07:39 FiO2 45 09/29/24 03:00 Oxygen Flow Rate (L/min) 5 Oxygen Delivery Method Nasal Cannula Weight: 52.3 kg Body Mass Index (BMI) 18.0 Intake & Output: Intake and Output for Last 24 Hours 09/27/24 09/28/24 09/29/24 23:59 23:59 23:59 Intake Total 448.75 / 648.75 2207.00 / 2207.00 50 / 50 Output Total 700 / 825 700 / 1325 925 / 925 Balance -251.25 / -176.25 1507.00 / 882.00 -875 / -875 Lab / Micro Data 09/29/24 06:20 09/29/24 06:20 Labs: Laboratory Results - last 24 hr 09/28/24 12:16: POC Glucose 211 H 09/28/24 17:07: POC Glucose 206 H 09/28/24 23:08: POC Glucose 144 H 09/29/24 06:08: POC Glucose 248 H 09/29/24 06:20: WBC 12.6 H, RBC 4.26 L, Hgb 11.8 L, Hct 39.2 L, MCV 92.0, MCH 27.7, MCHC 30.1 L, RDW Std Deviation 51.1 H, RDW Coeff of Agus 15.1 H, Plt Count 237, MPV 9.8, Immature Gran % (Auto) 0.800, Neut % (Auto) 88.2 H, Lymph % (Auto) 7.2 L, [place] % (Auto) 3.2, Eos % (Auto) 0.4, Baso % (Auto) 0.2, Absolute Neuts (auto) 11.2 H, Absolute Lymphs (auto) 0.91, Nucleated RBC % 0, Sodium 151 H, P otassium 3.2 L, Chloride 112 H, Carbon Dioxide 34.0 H, Anion Gap 5, BUN 98 H, C reatinine 2.45 H, Estim Creat Clear Calc 21.05, Est GFR (MDRD) Af Amer 34 L, Est GFR (MDRD) Non-Af 28 L, BUN/Creatinine Ratio 40.0 H, Glucose 267 H, Calcium 8.6 Micro: Microbiology 09/27/24 01:37 Blood Culture (Wb) - Anticubital Right Blood Culture - Preliminary No growth in 48 hours. 09/27/24 01:20 Blood Culture (Wb) - Left Hand Blood Culture - Preliminary No growth in 48 hours. 09/27/24 05:30 Nasal Secretion MRSA (PCR) - Final 09/27/24 05:30 Urine Catheter - [place] Streptococcus pneumoniae Antigen (M - Final 09/27/24 05:30 Urine Catheter - [place] Legionella Antigen - Final 09/19/24 12:30 Fluid - Pleural (Lung) Gram Stain - Final 09/19/24 12:30 Fluid - Pleural (Lung) Body Fluid Culture - Final Culture exhibits no growth. 09/19/24 12:30 Fluid - Pleural (Lung) Anaerobic Culture - Final No growth in 5 days. 09/18/24 18:30 Blood Culture (Wb) - Anticubital Right Blood Culture - Final No growth in 5 days. 09/18/24 23:38 Stool Ova and Parasites - Final 09/19/24 10:28 Sputum, Induced/[place]uk[place] Gram Stain - Final 09/19/24 10:28 Sputum, Induced/Lukens Respiratory Culture - Final Culture exhibits no growth. 09/19/24 16:00 Urine Catheter - Catheter Legionella Antigen - Final 09/19/24 16:00 Urine Catheter - Catheter Streptococcus pneumoniae Antigen (M - Final 09/19/24 13:13 Nasal Secretion MRSA (PCR) - Final 09/19/24 13:12 Mucosa - Nasopharyngeal SARS-CoV-2, Influenza & RSV (PCR) - Final 09/18/24 23:38 Stool Clostridioides difficile (PCR) - Final 09/18/24 17:33 Mucosa - Nasopharyngeal Respiratory Panel (PCR) - Final Rhythm Strip Rhythm Strip: Sinus Rhythm Rate: 60 Physical Exam Const Constitutional Narrative: Voice is weak. Afebrile. No respiratory distress. No conversational dyspnea. Resp normal respiratory effort, no retractions, no use of accessory muscles and clear to auscultation bilaterally Cardio regular rate, regular rhythm, S1 normal heart sound and S2 normal heart sound GI normal to inspection, nondistended, normoactive bowel sounds and soft to palpation GI Narrative: PEG tube in place. Without any surrounding erythema. Neuro Sensorium / Orientation: awake and alert Assessment & Plan Assessment/Plan (1) CHF (congestive heart failure): QUALIFIERS: Heart failure chronicity: acute on chronic Heart failure type: unspecified Qualified Code(s): I50.9 - Heart failure, unspecified (2) Hyperkalemia: (3) JAMES (acute kidney injury): PLAN: Plan Cardiac arrest * occurred on 09/18. Bradycardia then PEA noted. Had successful ROSC after 6 minutes of high-quality CPR. Cardiology felt bradyarrhythmia may have been related vasovagal event from having a BM. * Had another event on 09/[address] scan. Again, noted bradycardia and PEA. Intubated by Dr. Rivas. Had successful ROSC. Another code blue was called on the , but no note of CPR, this may have been called due to burst cuff on ETT that was replaced. Acute HFrEF * Resolved EF 35% * Metoprolol tartrate 25 BID. No ACEi/ARB given JAMES, so he is on isosorbide and hydralazine. * With pleural effusions s/p thoracentesis. Acute hypoxic respiratory failure * intubated on 09/19 during cardiac arrest. extubated 09/23. Was doing well until his PEG on 09/26 where he was hypoxic. New RML infiltrate. Now on BiPAP. Suspect aspiration. * on Pip/tazo * weaned down to 6l/m Iatrogenic pneumothorax * resolved * thoracentesis on 09/19, then chest tube placed same day. * pulmonary managing chest tube. * Chest tube to waterseal. Tentative plan to remove chest tube on the . JAMES * POCUS review on 09/28 showed collapsable IVC and no right sided hydronephrosis. Therefore, would benefit from additional IVF. * nephrology following * 09/29: improved today after IVF. Likely JAMES due to overdiuresis while he was NPO in patient with solitary kidney Dysphagia * DW speech therapy. They feel that patient will recover slowly. * PEG placed . Tube feeds started on 09/27. Debility * very weak overall * Will need SNF upon discharge. DM2 * a1c 6.6. * SSI Chronic conditions: * BPH: tamsulosin VTE prophylaxis: SQ heparin. Disposition: Patient should go to a SNF for rehab as he is profoundly weak. Patient expressing the social work that he does not want to do that and feel that he could walk out of here. Feel that is highly unlikely. Will continue to reinforce the need for [facility] facility at least at this time. Charges/Coding Visit Charges Inpatient E&M: 34660 Subs Hosp L2
[2024-09-29] MEDS: Isosorbide Mononitrate 30 MG Tablet PO (09:11)
[2024-09-29] MEDS: Metoprolol Tartrate 25 MG Tablet GT ×2 (09:11→20:39)
[2024-09-29] MEDS: Piperacil/Tazobactam 3.375 GM in 0.9% Normal Saline (50mL MB+) 50 ML IV ×2 (09:26→20:37)
[2024-09-29 12:07] LABS: Bedside Glucose 185 mg/dL (74-106)
[2024-09-29] MEDS: Jevity 1.5 1,000 ML 45 ML GT (15:18)
[2024-09-29] MEDS: Tamsulosin HCl 0.4 MG Capsule PO (17:10)
[2024-09-29 18:19] LABS: Bedside Glucose 212 mg/dL (74-106)
[2024-09-29] MEDS: 0.9% Saline Lock 10 ML Syringe IV (20:37)
[2024-09-29] MEDS: Polyethylene Glycol 3350 17 GM PACKET GT (20:40)
--- NOTE | 2024-09-29 23:41 | NURSING ---
Patient had 5 beat run then 16 beat run VTach alarm on monitor. Patient asymptomatic, stated he was sleeping well until staff entered room. VSS, BP slighly elevated, PM cardiac meds given earlier. Will notify MD. Mcdonough 3.2 earlier this AM, Mag has not been checked in several days. Will recommend lab work and potassium replacement.
[2024-09-30] VITALS (11 sets, daily range): BP systolic 114–155; BP diastolic 67–78; PULSE 63–76; RESP 15–18; TEMP 36.4–36.9; O2SAT 94–98; BMI 18.1
[2024-09-30 00:06] LABS: Bedside Glucose 166 mg/dL (74-106)
[2024-09-30 00:48] LABS: Magnesium 3.4 mg/dL (1.6-2.6)
[2024-09-30] MEDS: Potassium Chloride 10mEq/100mL 10 MEQ/100 ML IV.SOLN. 100 MEQ IV BOLUS ×4 (02:10→06:30)
[2024-09-30] MEDS: hydrALAZINE 10 MG Tablet GT ×3 (05:25→22:28)
[2024-09-30] MEDS: Heparin Injection (Vial) 5,000 UNIT/ML VIAL 5000 UNIT SC ×3 (05:26→22:28)
[2024-09-30] MEDS: Insulin Lispro 100 UNIT/ML INSULN.PEN SC ×4 (05:43→23:40)
[2024-09-30 06:03] LABS: Bedside Glucose 199 mg/dL (74-106)
[2024-09-30 07:10] LABS: Absolute Lymphocyte Count 1.11 X10^3/uL (0.83-4.51); Absolute Neutrophil Count 5.6 X10^3/uL (2.0-7.7); Basophil# 0.03 X10^3/uL; Basophil% 0.4 % (0-1); Eosinophil# 0.17 X10^3/uL; Eosinophils% 2.3 % (0-5); Hemoglobin 12.4 g/dL (13.0-16.5); Lymphocyte # 1.11 X10^3/ul (0.83-4.51); Lymphocyte % 15.2 % (19-41); Mean Corp Hgb Conc 29.5 g/dL (32-36); Mean Corpuscular Hgb 28.1 pg (27.0-32.0); Mean Corpuscular Volume 95.2 fL (80-94); Monocyte# 0.32 X10^3/uL; Monocyte% 4.4 % (0-10); NRBC Flagged by Analyzer 0 % (0-5); Neutrophil % 76.7 % (47-70); Platelet Count 246 K/mm3 (150-450); RBC Distribution Width CV 14.7 % (11.6-14.6); RBC Distribution Width SD 51.6 fl (35.1-43.9); Red Blood Count 4.41 M/mm3 (4.6-6.2); White Blood Count 7.3 K/mm3 (4.4-11.0)
[2024-09-30 07:31] LABS: Anion Gap 1 (5-15); BUN 91 mg/dL (7-18); BUN/Creat Ratio 42.3 RATIO (10-20); Calcium,Total 8.7 mg/dL (8.5-10.1); Chloride 116 mmol/L (98-107); Creatinine, Serum 2.15 mg/dL (0.70-1.30); EST Glomerular Filtration Rate 33 mL/min (>60); Est Glom Filt Rate - Afr Amer 39 mL/min (>60); Estimated Creatinine Clearance 24.13 ml/min; Glucose 228 mg/dL (74-106); Potassium 3.9 mmol/L (3.5-5.1); Sodium Level 154 mmol/L (136-145)
--- NOTE | 2024-09-30 08:37 | PN.HOSP_ITS ---
Reason for Visit Reason for Visit: Diagnoses Hyperkalemia (09/17/24) Cardiac arrest, cause unspecified (09/17/24) Heart failure, unspecified (09/17/24) Pleural effusion, not elsewhere classified (09/17/24) Acute respiratory failure with hypoxia (09/17/24) Nephrotic syndrome with unspecified morphologic changes (09/17/24) Acute kidney failure, unspecified (09/17/24) Patent foramen ovale (09/17/24) Bradycardia, unspecified (09/17/24) Other forms of dyspnea (09/17/24) Dysphagia, unspecified (09/17/24) Patient's noncompliance with other medical treatment and regimen due to unspecified reason (09/17/24) Subjective Subjective Still wanting to go home. Objective Data Objective Data Vital Signs: Vital Signs Temp Pulse Resp BP Pulse Ox O2 Del Method O2 Flow Rate 36.9 C 74 15 136/78 H 96 Nasal Cannula 4 09/30/24 03:45 09/30/24 05:25 09/30/24 03:45 09/30/24 03:45 09/30/24 03:45 09/30/24 03:45 09/30/24 03:45 FiO2 45 09/29/24 03:00 Oxygen Flow Rate (L/min) 4 Oxygen Delivery Method Nasal Cannula Weight: 52.6 kg Body Mass Index (BMI) 18.1 Intake & Output: Intake and Output for Last 24 Hours 09/28/24 09/29/24 09/30/24 23:59 23:59 23:59 Intake Total 2207.00 / 2207.00 1046.75 / 1146.75 610 / 610 Output Total 700 / 1325 925 / 925 500 / 500 Balance 1507.00 / 882.00 121.75 / 221.75 110 / 110 Lab / Micro Data 09/30/24 06:36 09/30/24 06:36 Labs: Laboratory Results - last 24 hr 09/29/24 11:46: POC Glucose 185 H 09/29/24 17:08: POC Glucose 212 H 09/29/24 23:46: POC Glucose 166 H 09/30/24 00:33: Magnesium 3.4 H 09/30/24 05:42: POC Glucose 199 H 09/30/24 06:36: WBC 7.3, RBC 4.41 L, Hgb 12.4 L, Hct 42.0, MCV 95.2 H, MCH 28.1, MCHC 29.5 L, RDW Std Deviation 51.6 H, RDW Coeff of Agus 14.7 H, Plt Count 246, MPV 10.0, Immature Gran % (Auto) 1.000 H, Neut % (Auto) 76.7 H, Lymph % (Auto) 15.2 L, [place] % (Auto) 4.4, Eos % (Auto) 2.3, Baso % (Auto) 0.4, Absolute Neuts (auto) 5.6, Absolute Lymphs (auto) 1.11, Nucleated RBC % 0, Sodium 154 H, Potassium 3.9, Chloride 116 H, Carbon Dioxide 37.0 H, Anion Gap 1 L, BUN 91 H, C reatinine 2.15 H, Estim Creat Clear Calc 24.13, Est GFR (MDRD) Af Amer 39 L, Est GFR (MDRD) Non-Af 33 L, BUN/Creatinine Ratio 42.3 H, Glucose 228 H, Calcium 8.7 Micro: Microbiology 09/27/24 01:37 Blood Culture (Wb) - Anticubital Right Blood Culture - Preliminary No growth in 48 hours. 09/27/24 01:20 Blood Culture (Wb) - Left Hand Blood Culture - Preliminary No growth in 48 hours. 09/27/24 05:30 Nasal Secretion MRSA (PCR) - Final 09/27/24 05:30 Urine Catheter - [place] Streptococcus pneumoniae Antigen (M - Final 09/27/24 05:30 Urine Catheter - [place] Legionella Antigen - Final 09/19/24 12:30 Fluid - Pleural (Lung) Gram Stain - Final 09/19/24 12:30 Fluid - Pleural (Lung) Body Fluid Culture - Final Culture exhibits no growth. 09/19/24 12:30 Fluid - Pleural (Lung) Anaerobic Culture - Final No growth in 5 days. 09/18/24 18:30 Blood Culture (Wb) - Anticubital Right Blood Culture - Final No growth in 5 days. 09/18/24 23:38 Stool Ova and Parasites - Final 09/19/24 10:28 Sputum, Induced/[place] Gram Stain - Final 09/19/24 10:28 Sputum, Induced/[place] Respiratory Culture - Final Culture exhibits no growth. 09/19/24 16:00 Urine Catheter - Catheter Legionella Antigen - Final 09/19/24 16:00 Urine Catheter - Catheter Streptococcus pneumoniae Antigen (M - Final 09/19/24 13:13 Nasal Secretion MRSA (PCR) - Final 09/19/24 13:12 Mucosa - Nasopharyngeal SARS-CoV-2, Influenza & RSV (PCR) - Final 09/18/24 23:38 Stool Clostridioides difficile (PCR) - Final 09/18/24 17:33 Mucosa - Nasopharyngeal Respiratory Panel (PCR) - Final Rhythm Strip Rhythm Strip: Sinus Rhythm Rate: 60 Physical Exam Const alert and no apparent distress Constitutional Narrative: weak voice. Seen with physical therapy. It took 2 persons, one contact guard assistance and the other pulling his equipment. His gait was unsteady. Left foot drop. Extremity General Extremity: Negative for edema Assessment & Plan Assessment/Plan (1) CHF (congestive heart failure): QUALIFIERS: Heart failure chronicity: acute on chronic Heart failure type: unspecified Qualified Code(s): I50.9 - Heart failure, unspecified (2) Hyperkalemia: (3) JAMES (acute kidney injury): PLAN: Plan Cardiac arrest * occurred on 09/18. Bradycardia then PEA noted. Had successful ROSC after 6 minutes of high-quality CPR. Cardiology felt bradyarrhythmia may have been related vasovagal event from having a BM. * Had another event on 09/[address] scan. Again, noted bradycardia and PEA. Intubated by Dr. Rivas. Had successful ROSC. Another code blue was called on the , but no note of CPR, this may have been called due to burst cuff on ETT that was replaced. Acute HFrEF * Resolved EF 35% * Metoprolol tartrate 25 BID. No ACEi/ARB given JAMES, so he is on isosorbide and hydralazine. * With pleural effusions s/p thoracentesis. Acute hypoxic respiratory failure * intubated on 09/19 during cardiac arrest. extubated 09/23. Was doing well until his PEG on 09/26 where he was hypoxic. New RML infiltrate. Now on BiPAP. Suspect aspiration. * on Pip/tazo * weaned down to 6l/m Iatrogenic pneumothorax * resolved * thoracentesis on 09/19, then chest tube placed same day. * pulmonary managing chest tube. * Chest tube to waterseal. Tentative plan to remove chest tube on the . JAMES * POCUS review on 09/28 showed collapsable IVC and no right sided hydronephrosis. Therefore, would benefit from additional IVF. * nephrology following * 09/29: improved today after IVF. Likely JAMES due to overdiuresis while he was NPO in patient with solitary kidney Dysphagia * DW speech therapy. They feel that patient will recover slowly. * PEG placed . Tube feeds started on 09/27. Debility * very weak overall * Will need SNF upon discharge. Pt now amenable to it. DM2 * a1c 6.6. * SSI Chronic conditions: * BPH: tamsulosin VTE prophylaxis: SQ heparin. Charges/Coding Visit Charges Inpatient E&M: 58820 Subs Hosp L2
--- NOTE | 2024-09-30 09:17 | WOUNDNOTE ---
wound photo: sacrum
[2024-09-30] MEDS: Isosorbide Mononitrate 30 MG Tablet PO (10:54)
[2024-09-30] MEDS: Metoprolol Tartrate 25 MG Tablet GT ×2 (10:54→22:29)
[2024-09-30] MEDS: Piperacil/Tazobactam 3.375 GM in 0.9% Normal Saline (50mL MB+) 50 ML IV ×2 (10:57→22:25)
[2024-09-30 12:08] LABS: Bedside Glucose 213 mg/dL (74-106)
--- NOTE | 2024-09-30 12:18 | PN.RENAL_ITS ---
Subjective Subjective Resting in recliner chair. No complaints. Objective Data Objective Data Vital Signs: Vital Signs Temp Pulse Resp BP Pulse Ox O2 Del Method O2 Flow Rate 97.5 F L 68 17 145/70 H 97 Nasal Cannula 5 09/30/24 09:30 09/30/24 10:54 09/30/24 09:30 09/30/24 10:54 09/30/24 09:30 09/30/24 09:30 09/30/24 09:50 FiO2 45 09/29/24 03:00 Oxygen Flow Rate (L/min) 5 Oxygen Delivery Method Nasal Cannula Weight: 52.6 kg Body Mass Index (BMI) 18.1 Intake & Output: Intake and Output for Last 24 Hours 09/28/24 09/29/24 09/30/24 23:59 23:59 23:59 Intake Total 2207.00 / 2207.00 1046.75 / 1146.75 810 / 810 Output Total 700 / 1325 925 / 925 900 / 900 Balance 1507.00 / 882.00 121.75 / 221.75 -90 / -90 Lab / Micro Data 09/30/24 06:36 09/30/24 06:36 Labs: Laboratory Results - last 24 hr 09/29/24 17:08: POC Glucose 212 H 09/29/24 23:46: POC Glucose 166 H 09/30/24 00:33: Magnesium 3.4 H 09/30/24 05:42: POC Glucose 199 H 09/30/24 06:36: WBC 7.3, RBC 4.41 L, Hgb 12.4 L, Hct 42.0, MCV 95.2 H, MCH 28.1, MCHC 29.5 L, RDW Std Deviation 51.6 H, RDW Coeff of Agus 14.7 H, Plt Count 246, MPV 10.0, Immature Gran % (Auto) 1.000 H, Neut % (Auto) 76.7 H, Lymph % (Auto) 15.2 L, [place] % (Auto) 4.4, Eos % (Auto) 2.3, Baso % (Auto) 0.4, Absolute Neuts (auto) 5.6, Absolute Lymphs (auto) 1.11, Nucleated RBC % 0, Sodium 154 H, Potassium 3.9, Chloride 116 H, Carbon Dioxide 37.0 H, Anion Gap 1 L, BUN 91 H, C reatinine 2.15 H, Estim Creat Clear Calc 24.13, Est GFR (MDRD) Af Amer 39 L, Est GFR (MDRD) Non-Af 33 L, BUN/Creatinine Ratio 42.3 H, Glucose 228 H, Calcium 8.7 09/30/24 11:46: POC Glucose 213 H Micro: Microbiology 09/27/24 01:37 Blood Culture (Wb) - Anticubital Right Blood Culture - Preliminary No growth in 48 hours. 09/27/24 01:20 Blood Culture (Wb) - Left Hand Blood Culture - Preliminary No growth in 48 hours. 09/27/24 05:30 Nasal Secretion MRSA (PCR) - Final 09/27/24 05:30 Urine Catheter - [place] Streptococcus pneumoniae Antigen (M - Final 09/27/24 05:30 Urine Catheter - [place] Legionella Antigen - Final 09/19/24 12:30 Fluid - Pleural (Lung) Gram Stain - Final 09/19/24 12:30 Fluid - Pleural (Lung) Body Fluid Culture - Final Culture exhibits no growth. 09/19/24 12:30 Fluid - Pleural (Lung) Anaerobic Culture - Final No growth in 5 days. 09/18/24 18:30 Blood Culture (Wb) - Anticubital Right Blood Culture - Final No growth in 5 days. 09/18/24 23:38 Stool Ova and Parasites - Final 09/19/24 10:28 Sputum, Induced/Lukens Gram Stain - Final 09/19/24 10:28 Sputum, Induced/Lukens Respiratory Culture - Final Culture exhibits no growth. 09/19/24 16:00 Urine Catheter - Catheter Legionella Antigen - Final 09/19/24 16:00 Urine Catheter - Catheter Streptococcus pneumoniae Antigen (M - Final 09/19/24 13:13 Nasal Secretion MRSA (PCR) - Final 09/19/24 13:12 Mucosa - Nasopharyngeal SARS-CoV-2, Influenza & RSV (PCR) - Final 09/18/24 23:38 Stool Clostridioides difficile (PCR) - Final 09/18/24 17:33 Mucosa - Nasopharyngeal Respiratory Panel (PCR) - Final Rhythm Strip Rhythm Strip: Sinus Rhythm Rate: 60 Physical Exam Narrative Alert and orient x 3, no acute distress S1, S2, RRR Lung sounds clear anteriorly and posteriorly. No wheezes, rhonchi or rales Abdomen soft, nontender. PEG tube intact No edema Assessment & Plan Assessment/Plan (1) JAMES (acute kidney injury): (2) Congestive heart failure: (3) Hyperkalemia: PLAN: Plan Impression/Plan: The patient is a 69-year-old male with past history of type 2 diabetes mellitus, hypertension, HFrEF (EF 35%), hypothyroidism, and osteoarthritis. The patient presented to the hospital on 09/16/2024 with bradycardia and PEA arrest. The patient was also found to have decompensated systolic heart failure along with acute hypoxic respiratory failure requiring ventilation. Patient has clinically improved and was extubated on 09/23/2024. Nephrology is following for acute kidney injury. - Acute kidney injury on probable chronic kidney disease. Baseline renal function is unknown. In 2021 creatinine was 1.2 to 1.3 mg/dL. Gap in lab work until his hospitalization. Patient presented to hospital with serum creatinine of 1.60 mg/dL on 09/16/2024. Suspect JAMES secondary to ischemic ATN related to decreased effective blood volume related to PEA arrest and heart failure. On 09/28 serum creatinine increased to 2.69, he was given gentle IV fluids and today creatinine has improved to 2.15 mg/dL. Patient has good urine output. Patient is n.p.o., he is receiving tube feedings. Diuretic on hold for now. Labs ordered for morning. - Hypernatremia; sodium is trending up to 154 today. Likely from lack of free water. Patient is NPO. Will order free water flushes via PEG tube. Follow sodium trends.
--- NOTE | 2024-09-30 12:37 | CASEMGMT ---
DEMARCO LOVING reviewed progress with therapy, min assist [id number]. DEMARCO LOVING in to discuss discharge planning with patient. Patient states he is agreeable to SNF at discharge for additional therapy but he would like to go home for a little bit for [employer]. DEMARCO LOVING updated patient it could be requested if a leave of absence is possible but did not guarantee it. Patient states he understands that he needs additional therapy. DEMARCO LOVING reviewed SNF list with patient that was in room and [facility]. Patient agreeable to have referral sent to [facility]. Patient had no further questions or concerns at this time. DEMARCO LOVING updated discharge financial planning analyst and hospitalist. CM will continue to follow this and plan for a safe discharge.
--- NOTE | 2024-09-30 12:49 | CASEMGMT ---
Addendum entered by Valorie Calloway 09/30/24 13:43: [facility] accepted and will submit for precert. Valorie Calloway DC Planning Asst. Original Note: Discharge Planning Referral sent to [facility]. Valorie Calloway DC Planning Asst.
--- NOTE | 2024-09-30 15:11 | CASEMGMT ---
SW went to patient's room to let him know that [facility] has accepted him. SW also told patient that [facility] said it is up to the physician if he can leave and he would be able to leave for 2-3 hours. Patient said he has to be at home for and . SW told patient that he likely will not be able to do that unless he does well enough with therapy and they are willing to discharge him. SW told patient his insurance has to approve him before he can go. Plan: d/c to [facility] pending insurance approval. Pili Burnett MSW TASHA
[2024-09-30 17:24] LABS: Bedside Glucose 207 mg/dL (74-106)
[2024-09-30] MEDS: Tamsulosin HCl 0.4 MG Capsule PO (18:39)
[2024-09-30] MEDS: guaiFENesin/D-Methorphan TAB.SR.12H 2 TABLET PO (22:29)
[2024-09-30] MEDS: Jevity 1.5 1,000 ML 50 ML GT (23:09)
[2024-09-30 23:59] LABS: Bedside Glucose 210 mg/dL (74-106)
[2024-10-01] VITALS (12 sets, daily range): BP systolic 147–153; BP diastolic 68–75; PULSE 62–70; RESP 16–18; TEMP 36.3–36.6; O2SAT 94–98; BMI 17.4
[2024-10-01] MEDS: hydrALAZINE 10 MG Tablet GT ×3 (05:47→21:47)
[2024-10-01] MEDS: Piperacil/Tazobactam 3.375 GM in 0.9% Normal Saline (50mL MB+) 50 ML IV ×3 (05:48→21:48)
[2024-10-01] MEDS: Insulin Lispro 100 UNIT/ML INSULN.PEN SC ×3 (05:48→16:59)
[2024-10-01] MEDS: Heparin Injection (Vial) 5,000 UNIT/ML VIAL 5000 UNIT SC ×3 (05:48→21:47)
[2024-10-01 06:42] LABS: Anion Gap 0 (5-15); BUN 78 mg/dL (7-18); BUN/Creat Ratio 42.6 RATIO (10-20); Calcium,Total 8.2 mg/dL (8.5-10.1); Chloride 120 mmol/L (98-107); Creatinine, Serum 1.83 mg/dL (0.70-1.30); EST Glomerular Filtration Rate 39 mL/min (>60); Est Glom Filt Rate - Afr Amer 47 mL/min (>60); Estimated Creatinine Clearance 28.34 ml/min; Glucose 232 mg/dL (74-106); Potassium 4.1 mmol/L (3.5-5.1); Sodium Level 155 mmol/L (136-145)
[2024-10-01 06:50] LABS: Bedside Glucose 191 mg/dL (74-106)
--- NOTE | 2024-10-01 08:32 | PN.HOSP_ITS ---
Reason for Visit Reason for Visit: Diagnoses Hyperkalemia (09/17/24) Cardiac arrest, cause unspecified (09/17/24) Heart failure, unspecified (09/17/24) Pleural effusion, not elsewhere classified (09/17/24) Acute respiratory failure with hypoxia (09/17/24) Nephrotic syndrome with unspecified morphologic changes (09/17/24) Acute kidney failure, unspecified (09/17/24) Patent foramen ovale (09/17/24) Bradycardia, unspecified (09/17/24) Other forms of dyspnea (09/17/24) Dysphagia, unspecified (09/17/24) Patient's noncompliance with other medical treatment and regimen due to unspecified reason (09/17/24) Subjective Subjective Denies any new complaints. Objective Data Objective Data Vital Signs: Vital Signs Temp Pulse Resp BP Pulse Ox O2 Del Method O2 Flow Rate 36.5 C L 67 18 147/68 H 94 Nasal Cannula 2 10/01/24 08:02 10/01/24 08:02 10/01/24 08:02 10/01/24 08:02 10/01/24 08:02 10/01/24 08:02 10/01/24 08:02 FiO2 45 09/29/24 03:00 Oxygen Flow Rate (L/min) 2 Oxygen Delivery Method Nasal Cannula Weight: 50.213 kg Body Mass Index (BMI) 17.4 Intake & Output: Intake and Output for Last 24 Hours 09/29/24 09/30/24 10/01/24 23:59 23:59 23:59 Intake Total 1046.75 / 1146.75 1960 / 1960 150 / 150 Output Total 925 / 925 1350 / 1751 801 / 801 Balance 121.75 / 221.75 610 / 209 -651 / -651 Medical Nutrition Assessment Dietitian: Malnutrition Criteria Met Start: 09/30/24 14:47 Freq: Status: Active Protocol: Document 09/30/24 14:48 SB (Rec: 09/30/24 14:48 SB [id number]) Nutrition Malnutrition Evidence of Malnutrition Exists Yes Malnutrition (severe): Acute Illness/Injury Evidenced By Weight Loss (Severe),Physical Changes (Moderate) Intake Problem Inadequate Oral Intake Etiology related to swallowing difficulty Signs/Symptoms as evidenced by NPO and need for PEG tube. Status Active Problem Clinical Problem Acute Disease or Injury Related Malnutrition Etiology severe related to inadequate oral intake and fluid loss Signs/Symptoms as evidenced by 19% unintentional weight loss x 2 weeks, moderate wasting in clavicle and temporalis region , BMI 18.2kg/m2 Status Active Problem Swallowing Difficulty Etiology related to dysphagia Signs/Symptoms as evidenced by aspiration and need for PEG tube. Status Active Problem Recommendation Dietitian Recommendations/Changes Adjust Jevity 1.5Cal to 50ml/ hr with 300ml water flushes every 4 hours to provide 1800ml calories, 76g protein, and 2712ml of total fluid/day. Once sodium improves move to 150ml flushes every 4 hours. Will adjust TF as needed. Will monitor weight trends closely. Reviewed and approved by Shirley Irwin RD, LD. Reviewed and approved by Shirley Irwin RD, LD. Lab / Micro Data 09/30/24 06:36 10/01/24 06:02 Labs: Laboratory Results - last 24 hr 09/30/24 11:46: POC Glucose 213 H 09/30/24 17:03: POC Glucose 207 H 09/30/24 23:39: POC Glucose 210 H 10/01/24 05:45: POC Glucose 191 H 10/01/24 06:02: Sodium 155 H, Potassium 4.1, Chloride 120 H, Carbon Dioxide 35.0 H, Anion Gap 0 L, BUN 78 H, Creatinine 1.83 H, Estim Creat Clear Calc 28.34, Est GFR (MDRD) Af Amer 47 L, Est GFR (MDRD) Non-Af 39 L, BUN/Creatinine Ratio 42.6 H , Glucose 232 H, Calcium 8.2 L Micro: Microbiology 09/27/24 01:37 Blood Culture (Wb) - Anticubital Right Blood Culture - Preliminary No growth in 48 hours. 09/27/24 01:20 Blood Culture (Wb) - Left Hand Blood Culture - Preliminary No growth in 48 hours. 09/27/24 05:30 Nasal Secretion MRSA (PCR) - Final 09/27/24 05:30 Urine Catheter - [place] Streptococcus pneumoniae Antigen (M - Final 09/27/24 05:30 Urine Catheter - [place] Legionella Antigen - Final 09/19/24 12:30 Fluid - Pleural (Lung) Gram Stain - Final 09/19/24 12:30 Fluid - Pleural (Lung) Body Fluid Culture - Final Culture exhibits no growth. 09/19/24 12:30 Fluid - Pleural (Lung) Anaerobic Culture - Final No growth in 5 days. 09/18/24 18:30 Blood Culture (Wb) - Anticubital Right Blood Culture - Final No growth in 5 days. 09/18/24 23:38 Stool Ova and Parasites - Final 09/19/24 10:28 Sputum, Induced/[place] Gram Stain - Final 09/19/24 10:28 Sputum, Induced/[place] Respiratory Culture - Final Culture exhibits no growth. 09/19/24 16:00 Urine Catheter - Catheter Legionella Antigen - Final 09/19/24 16:00 Urine Catheter - Catheter Streptococcus pneumoniae Antigen (M - Final 09/19/24 13:13 Nasal Secretion MRSA (PCR) - Final 09/19/24 13:12 Mucosa - Nasopharyngeal SARS-CoV-2, Influenza & RSV (PCR) - Final 09/18/24 23:38 Stool Clostridioides difficile (PCR) - Final 09/18/24 17:33 Mucosa - Nasopharyngeal Respiratory Panel (PCR) - Final Rhythm Strip Rhythm Strip: Sinus Rhythm Rate: 60 Physical Exam Const Constitutional Narrative: Up in chair. Watching TV. No respiratory distress. No conversational dyspnea. Resp normal respiratory effort and no retractions Cardio regular rate, regular rhythm, S1 normal heart sound and S2 normal heart sound GI normal to inspection, nondistended, normoactive bowel sounds, soft to palpation, non-tender and non-distended Extremity normal to inspection and full ROM Neuro Sensorium / Orientation: awake and alert Assessment & Plan Assessment/Plan (1) CHF (congestive heart failure): QUALIFIERS: Heart failure chronicity: acute on chronic Heart failure type: unspecified Qualified Code(s): I50.9 - Heart failure, unspecified (2) Hyperkalemia: (3) JAMES (acute kidney injury): PLAN: Plan Cardiac arrest * occurred on 09/18. Bradycardia then PEA noted. Had successful ROSC after 6 minutes of high-quality CPR. Cardiology felt bradyarrhythmia may have been related vasovagal event from having a BM. * Had another event on 09/[address] scan. Again, noted bradycardia and PEA. Intubated by Dr. Rivas. Had successful ROSC. Another code blue was called on the , but no note of CPR, this may have been called due to burst cuff on ETT that was replaced. Acute HFrEF * Resolved EF 35% * Metoprolol tartrate 25 BID. No ACEi/ARB given JAMES, so he is on isosorbide and hydralazine. * With pleural effusions s/p thoracentesis. Acute hypoxic respiratory failure * intubated on 09/19 during cardiac arrest. extubated 09/23. Was doing well until his PEG on 09/26 where he was hypoxic. New RML infiltrate. Now on BiPAP. Suspect aspiration. * on Pip/tazo * weaned down to 6l/m Iatrogenic pneumothorax * resolved * thoracentesis on 09/19, then chest tube placed same day. * pulmonary managing chest tube. * Chest tube to waterseal. Tentative plan to remove chest tube on the . JAMES * POCUS review on 09/28 showed collapsable IVC and no right sided hydronephrosis. Therefore, would benefit from additional IVF. * nephrology following * 09/29: improved today after IVF. Likely JAMES due to overdiuresis while he was NPO in patient with solitary kidney Dysphagia * DW speech therapy. They feel that patient will recover slowly. * PEG placed 09/26/. Tube feeds started on 09/27. Debility * very weak overall * Will need SNF upon discharge. Pt now amenable to it. Hypernatremia * will give d5w. monitor DM2 * a1c 6.6. * SSI Chronic conditions: * BPH: tamsulosin VTE prophylaxis: SQ heparin. Charges/Coding Visit Charges Inpatient E&M: 57798 Subs Hosp L2
[2024-10-01] MEDS: Metoprolol Tartrate 25 MG Tablet GT ×2 (09:25→21:48)
[2024-10-01] MEDS: Dextrose 5%-Water (500mL Bag) 500 ML 150 ML IV (09:26)
[2024-10-01] MEDS: Isosorbide Mononitrate 30 MG Tablet PO (09:26)
[2024-10-01 12:25] LABS: Bedside Glucose 252 mg/dL (74-106)
--- NOTE | 2024-10-01 13:23 | PN.RENAL_ITS ---
Subjective Subjective Sitting in chair. Reports feeling better again today. No overnight events. Objective Data Objective Data Vital Signs: Vital Signs Temp Pulse Resp BP Pulse Ox O2 Del Method O2 Flow Rate 97.7 F L 67 18 147/68 H 94 Nasal Cannula 2 10/01/24 08:02 10/01/24 09:25 10/01/24 08:02 10/01/24 08:02 10/01/24 08:02 10/01/24 08:02 10/01/24 09:01 FiO2 45 09/29/24 03:00 Oxygen Flow Rate (L/min) 2 Oxygen Delivery Method Nasal Cannula Weight: 50.213 kg Body Mass Index (BMI) 17.4 Intake & Output: Intake and Output for Last 24 Hours 09/29/24 09/30/24 10/01/24 23:59 23:59 23:59 Intake Total 1046.75 / 1146.75 1960 / 1960 700 / 700 Output Total 925 / 925 1350 / 1751 1001 / 1001 Balance 121.75 / 221.75 610 / 209 -301 / -301 Medical Nutrition Assessment Dietitian: Malnutrition Criteria Met Start: 09/30/24 14:47 Freq: Status: Active Protocol: Document 09/30/24 14:48 SB (Rec: 09/30/24 14:48 SB [id number]) Nutrition Malnutrition Evidence of Malnutrition Exists Yes Malnutrition (severe): Acute Illness/Injury Evidenced By Weight Loss (Severe),Physical Changes (Moderate) Intake Problem Inadequate Oral Intake Etiology related to swallowing difficulty Signs/Symptoms as evidenced by NPO and need for PEG tube. Status Active Problem Clinical Problem Acute Disease or Injury Related Malnutrition Etiology severe related to inadequate oral intake and fluid loss Signs/Symptoms as evidenced by 19% unintentional weight loss x 2 weeks, moderate wasting in clavicle and temporalis region , BMI 18.2kg/m2 Status Active Problem Swallowing Difficulty Etiology related to dysphagia Signs/Symptoms as evidenced by aspiration and need for PEG tube. Status Active Problem Recommendation Dietitian Recommendations/Changes Adjust Jevity 1.5Cal to 50ml/ hr with 300ml water flushes every 4 hours to provide 1800ml calories, 76g protein, and 2712ml of total fluid/day. Once sodium improves move to 150ml flushes every 4 hours. Will adjust TF as needed. Will monitor weight trends closely. Reviewed and approved by Shirley Irwin RD, LD. Reviewed and approved by Shirley Irwin RD, LD. Lab / Micro Data 09/30/24 06:36 10/01/24 06:02 Labs: Laboratory Results - last 24 hr 09/30/24 17:03: POC Glucose 207 H 09/30/24 23:39: POC Glucose 210 H 10/01/24 05:45: POC Glucose 191 H 10/01/24 06:02: Sodium 155 H, Potassium 4.1, Chloride 120 H, Carbon Dioxide 35.0 H, Anion Gap 0 L, BUN 78 H, Creatinine 1.83 H, Estim Creat Clear Calc 28.34, Est GFR (MDRD) Af Amer 47 L, Est GFR (MDRD) Non-Af 39 L, BUN/Creatinine Ratio 42.6 H , Glucose 232 H, Calcium 8.2 L 10/01/24 11:50: POC Glucose 252 H Micro: Microbiology 09/27/24 01:37 Blood Culture (Wb) - Anticubital Right Blood Culture - Preliminary No growth in 48 hours. 09/27/24 01:20 Blood Culture (Wb) - Left Hand Blood Culture - Preliminary No growth in 48 hours. 09/27/24 05:30 Nasal Secretion MRSA (PCR) - Final 09/27/24 05:30 Urine Catheter - [place] Streptococcus pneumoniae Antigen (M - Final 09/27/24 05:30 Urine Catheter - [place] Legionella Antigen - Final 09/19/24 12:30 Fluid - Pleural (Lung) Gram Stain - Final 09/19/24 12:30 Fluid - Pleural (Lung) Body Fluid Culture - Final Culture exhibits no growth. 09/19/24 12:30 Fluid - Pleural (Lung) Anaerobic Culture - Final No growth in 5 days. 09/18/24 18:30 Blood Culture (Wb) - Anticubital Right Blood Culture - Final No growth in 5 days. 09/18/24 23:38 Stool Ova and Parasites - Final 09/19/24 10:28 Sputum, Induced/Luk[place] Gram Stain - Final 09/19/24 10:28 Sputum, Induced/Lukens Respiratory Culture - Final Culture exhibits no growth. 09/19/24 16:00 Urine Catheter - Catheter Legionella Antigen - Final 09/19/24 16:00 Urine Catheter - Catheter Streptococcus pneumoniae Antigen (M - Final 09/19/24 13:13 Nasal Secretion MRSA (PCR) - Final 09/19/24 13:12 Mucosa - Nasopharyngeal SARS-CoV-2, Influenza & RSV (PCR) - Final 09/18/24 23:38 Stool Clostridioides difficile (PCR) - Final 09/18/24 17:33 Mucosa - Nasopharyngeal Respiratory Panel (PCR) - Final Rhythm Strip Rhythm Strip: Sinus Rhythm Rate: 60 Physical Exam Narrative Alert and oriented x 3, no acute distress S1, S2, RRR Lung sounds clear anteriorly and posteriorly. No wheezes, rhonchi or rales Abdomen soft, nontender. PEG tube intact No edema Assessment & Plan Assessment/Plan (1) JAMES (acute kidney injury): (2) Congestive heart failure: (3) Hyperkalemia: PLAN: Plan Impression/Plan: The patient is a 69-year-old male with past history of type 2 diabetes mellitus, hypertension, HFrEF (EF 35%), hypothyroidism, and osteoarthritis. The patient presented to the hospital on 09/16/2024 with bradycardia and PEA arrest. The patient was also found to have decompensated systolic heart failure along with acute hypoxic respiratory failure requiring ventilation. Patient has clinically improved and was extubated on 09/23/2024. Nephrology is following for acute kidney injury. - Acute kidney injury on probable chronic kidney disease. Baseline renal function is unknown. In 2021 creatinine was 1.2 to 1.3 mg/dL. Gap in lab work until his hospitalization. Patient presented to hospital with serum creatinine of 1.60 mg/dL on 09/16/2024. Suspect JAMES secondary to ischemic ATN related to decreased effective blood volume related to PEA arrest and heart failure. On 09/28 serum creatinine increased to 2.69, he was given gentle IV fluids and today creatinine has improved to 1.83 mg/dL. Patient has good urine output. Patient is n.p.o., he is receiving tube feedings. Continue holding diuretic for now. Labs ordered for morning. - Hypernatremia; sodium is trending up again today, 155. Likely from lack of free water and patient was also having loose watery stools. Patient is NPO. He is getting free water flushes 400 mL every 4 hours via PEG tube. Also receiving D5W 500 mL today. Continue to follow sodium trends. -Disposition; discharge planning in progress. Will arrange for hospital follow- up.
--- NOTE | 2024-10-01 15:17 | SP.MBSS_ITS ---
Modified Barium Swallow Patient Information Study Date: 10/01/24 Study Time: 14:15 Direct Billable Minutes: 112 Total Minutes procedure & reportin Diagnosis: Dysphagia R13.10; Acute hypoxemic respiratory failure J96.01 Referring Physician: Pastor Holder Reason for Referral: Objectively assess swallow function, assess risk for aspiration, and determine recommendations for least restrictive diet textures and compensatory strategies to improve safety of swallow. Medical History: PMH: HTN; on furosemide, history of CHF, history of DM-2; currently not on treatment, former tobacco abuse, history of COVID-19 (2021), history of thumb surgery and osteoarthritis (See EMR for full PMH). Pt presented to [facility] ED 09/17/2024 w/ SOB and bilateral LE edema. In the ER, he was noted to have a highly elevated BNP of 4,191.2 pg/mL present on admission consistent with AE of CHF of unspecified-type with CT this admission revealing Large Bilateral Pleural Effusions with possible underlying Pneumonia and cardiomegaly with trace pericardial effusion and [id number] volume ascites of uncertain etiology along with an incidentally noted absent Left kidney. Pt admitted to PCU. During his stay, three code blues were called. 09/19/2024 he required intubation. Thoracentesis 09/19/24 with complication of pneumothorax requiring chest tube placement. Pt was extubated 09/23/2024 and did very poorly when provided water by RN for dysphagia screen. He was consulted for ST evaluation of swallow function prior to diet advancement. BSE completed 09/23/24 and recommended strict NPO. Re-assessment at bedside on 09/24/24 recommended NPO w/ ice chips 1 at a time, total feed. This morning, pt tolerated trials of applesauce, but continued coughing w/ ice and tsp sips of liquids. DIRECTIONAL SURVEY DRAFTER recommended MBSS to consider the patient for diet advancement. MBSS 09/25/24 revealed severe oropharyngeal dysphagia and recommended NPO, ice chips 1 at a time after oral care, consideration for alternative means of nutrition/hydration. Pt had PEG placed. He had increased difficulty tolerating ice chips and was recommended strict NPO; however, in the past 48 hours he has improved tolerating ice chip trials. Pt also tolerated trials of applesauce and honey/moderately thickened OJ today during ST session. He was recommended for repeat MBSS to consider diet advancement. Current Diet Ordered: NPO - ok for ice chips 1 at a time TOTAL FEED Dentition: Natural Teeth, Partials and Missing Teeth Mental Status: Impaired (Impulsive, lacks insight into severity of swallowing deficits) Respiratory Status: Oxygenating on 2L/M nasal cannula Penetration-Aspiration Scale Penetration-Aspiration Scale: OBJECTIVE ASSESSMENT OF SWALLOW FUNCTION (QUANTITATIVE ? PER TRIAL): PENETRATION / ASPIRATION SCALE (DANG): 1 = does not enter airway 2 = enters airway/above vocal folds/ejected 3 = enters airway/above vocal folds/not ejected 4 = enters airway/contacts vocal folds/ejected 5 = enters airway/contacts vocal folds/not ejected 6 = enters airway/below vocal folds/ejected 7 = enters airway/below vocal folds/not ejected despite effort 8 = enters airway/below vocal folds/no effort VIDEOFLOROSCOPIC SCALE SCORE (DANG): Grade I = aspiration of material that has penetrated into the laryngeal vestibule, intact cough reflex Grade II = aspiration < 10 % of the bolus, intact cough reflex Grade III = aspiration of < 10 % of the bolus, reduced cough reflex or aspiration of > 10 % of the bolus, intact cough reflex Grade IV = aspiration of > 10 % of the bolus, reduced cough reflex Penetration-Aspiration Scale Score Thin Liquid via 1/2 teaspoon: Result: 3= enters airways/above vocal folds/not ejected Kennett Thick Liquid via teaspoon: Result: 3= enters airways/above vocal folds/not ejected [place] Thick Liquid via teaspoon Trial 2: Result: 5= enters airways/contacts vocal folds/not ejected Honey Thick Liquid via teaspoon: Result: 1= does not enter airway Pudding via teaspoon: Result: 1= does not enter airway Comment: post prandial laryngeal penetration to the vocal folds (seen prior to next trial) Honey Thick Liquid via large single sip: cup: Result: 3= enters airways/above vocal folds/not ejected Comment: SILENT post prandial aspiration (seen prior to next trial) Honey Thick Liquid via small single sip: cup: Result: 2= enter airway/above vocal folds/ejected Comment: Cued cough and re-swallow after this trial to clear residues on vocal folds. Volitional cough sounded weak, but it effectively cleared residues from the vocal folds. Kennett Thick Liquid via teaspoon Effortful swallow: Result: 5= enters airways/contacts vocal folds/not ejected Oral Phase Labial Seal: Interlabial escape, no progression to anterior lip Tongue Control During Bolus Hold: Posterior escape of greater than half of bolus Bolus Transport/Lingual Motion: Repetitive/disorganized tongue motion Oral Residue: Residue collection on oral structures Pharyngeal Phase Initiation of Pharyngeal Swallow: Bolus head in pyriforms Soft Palate Elevation: Trace column of contrast/air between soft palate and pharyngeal wall Laryngeal Elevation: Partial superior movement thyroid cart/partial apprx aryt- epig petiole Anterior Hyoid Excursion: Partial anterior movement Epiglottic Movement: Partial inversion Laryngeal Vestibule Closure at Height of Swallow: Incomplete; narrow column of air/contrast in laryngeal vestibule Pharyngeal Stripping Wave: Present - diminished Pharyngoesophageal Segment Opening: Parital distension and partial duration; parital obstruction of flow Tongue Base Retraction: Wide column of contrast between tongue base & post. pharyngeal wall Pharyngeal Residue: Collection of residue within or on pharyngeal structures Esophageal Phase Esophageal Clearance: Esophageal retention w/ retrograde flow below pharyngoesophageal seg. Treatment Strategies Effects of treatment strategies attemped:: Cough and re-swallow = effective. Effortful swallow = not effective, no impact. Chin tuck (pt completed chin tuck w/ first nectar by tsp trial) = not effective. Diagnosis/Impression Diagnosis: Moderate-severe oropharyngeal dysphagia R13.12 Impression: The oral phase is primarily marked by... -Premature posterior loss of >1/2 of thin and thickened liquid consistencies to the pyriforms prior to swallow onset. -Lingual pumping for A-P transport of pudding. -DIRECTIONAL SURVEY DRAFTER still did not assess cookie or mastication due to concerns for choking on solids given severity of dysphagia. The pharyngeal phase is primarily marked by... -Delayed swallow onset. -Moderate pharyngeal residues due to decreased pharyngeal contraction due to decreased TB retraction, pharyngeal stripping wave and UES opening/duration. Improved from previous MBSS. -Decreased airway closure during the swallow due to decreased anterior hyoid excursion and laryngeal elevation. SILENT post prandial aspiration of large sip of honey/moderately thick liquids. Consistent laryngeal penetration of thin and mildly thick liquid trials that did not fully eject after the swallow increasing risk for post prandial aspiration. Cough and re-swallow was effective in decreasing risk for aspiration. Recommendations Diet: Puree Textures (MOIST) and Honey-thick Liquids (Moderately-thick Liquids - IDDSI Level 3) Comment: PEG present to meet nutritional/hydration needs Ok for ice chips 1 at a time after oral care TOTAL FEED between meals for pt comfort Compensatory Strategies: Small Bites, Liquid by Teaspoon Only (Intermittent cough and re-swallow), Slow Rate, Alternate bites/solids and sips/liquids, Sitting upright and Remain sitting upright for 30 minutes after PO intake Supervision: 1:1 Close Supervision (ASSIST FEEDING IF PT IS UNABLE TO CONSISTENTLY UTILIZE TSP SIPS) Recommend Repeat Modified Barium Swallow: Yes (Repeat MBSS in 1-3 weeks after continued implementation of oropharyngeal exercise program to consider the patient for diet advancement) Need for Skilled Speech Therapy Services: Yes Comment: Continue per dysphagia POC. Continue oropharyngeal exercise program (effortful, Stephanie, CTAR). Will add lingual resistance and Yawn stretch to exercise program in upcoming sessions. If tolerated, consider implementation of Shaker. Will continue training the patient in strategies to decrease risk for aspiration. Education Completed: 1. Described result of evaluation. and 7. Pt requires further education on strategies & risks. Comment: DIRECTIONAL SURVEY DRAFTER educated pt and RN in results and recommendations of MBSS. DIRECTIONAL SURVEY DRAFTER posted recommendations in his room and placed RN communication note, as well. DIRECTIONAL SURVEY DRAFTER emphasized to RN that the patient requires DIRECT SUPERVISION FOR ALL FOOD AND DRINK as he is impulsive and takes large sips if not cued/assisted. Status Active ST Patient: Active Contact Information [facility] Speech Therapy:: Matilde Zeng M.A. [facility]3]-DIRECTIONAL SURVEY DRAFTER Speech-Language Pathologist [facility] [address] [place] [address] [email or web address] [phone]
[2024-10-01 17:57] LABS: Bedside Glucose 157 mg/dL (74-106)
[2024-10-01] MEDS: guaiFENesin/D-Methorphan TAB.SR.12H 2 TABLET PO (21:48)
[2024-10-02] VITALS (8 sets, daily range): BP systolic 156–158; BP diastolic 70–81; PULSE 61–65; RESP 16–19; TEMP 36.6–36.9; O2SAT 94–97; BMI 18.7
[2024-10-02] MEDS: Insulin Lispro 100 UNIT/ML INSULN.PEN SC ×3 (00:40→11:35)
--- NOTE | 2024-10-02 00:59 | CPS ---
PATIENT REFUSED PAP THERAPY FOR NIGHT TIME USE. ON CPOX FOR THE NIGHT, 2L 98%
[2024-10-02 01:05] LABS: Bedside Glucose 224 mg/dL (74-106)
[2024-10-02] MEDS: Jevity 1.5 1,000 ML 50 ML GT (01:47)
[2024-10-02] MEDS: Piperacil/Tazobactam 3.375 GM in 0.9% Normal Saline (50mL MB+) 50 ML IV (05:32)
[2024-10-02] MEDS: hydrALAZINE 10 MG Tablet GT (05:32)
[2024-10-02] MEDS: Heparin Injection (Vial) 5,000 UNIT/ML VIAL 5000 UNIT SC (05:32)
[2024-10-02 06:01] LABS: Bedside Glucose 213 mg/dL (74-106)
[2024-10-02 07:50] LABS: Anion Gap 0 (5-15); BUN 62 mg/dL (7-18); BUN/Creat Ratio 38.8 RATIO (10-20); Chloride 112 mmol/L (98-107); EST Glomerular Filtration Rate 46 mL/min (>60); Est Glom Filt Rate - Afr Amer 55 mL/min (>60); Glucose 206 mg/dL (74-106); Potassium 4.2 mmol/L (3.5-5.1); Sodium Level 144 mmol/L (136-145)
[2024-10-02] MEDS: Metoprolol Tartrate 25 MG Tablet GT (08:32)
--- NOTE | 2024-10-02 11:20 | CASEMGMT ---
Discharge Planning [address] has obtained auth to admit. Valorie Calloway DC Planning Asst.
--- NOTE | 2024-10-02 11:23 | TREXTCAR_ITS ---
Diet Diet Order/Speech Therapy: 10/01/24 15:13 Diet: Regular - General Food consistency:: Pureed Liquid Consistency:: Honey/Moderately Thick Fluid restriction:: 1500 mL Diet Comments: Moist purees, DIRECT SUP ALL FOOD/DRINK, LIQUID BY TSP ONLY Tube Feed: jevity 1.5 at 45 cc/h with 300 cc water flushes every 4 hours. Routine Orders/Code Status Routine Lab Work: CBC and BMP Code Status: Full Code DC O2, CPAP, BIPAP needs PSN CPAP & BiPAP: BiPAP & CPAP Settings per PSN Mode AVAPS 09/29/24 03:00 Bipap Delivery Device Face Mask 09/29/24 03:00 BiPAP Inspiratory Pressure 16 09/28/24 23:14 BiPAP Expiratory Pressure 14 09/29/24 03:00 BiPAP Rate 12 09/29/24 03:00 Fraction of Inspired Oxygen ( 45 09/29/24 03:00 FIO2) Additional Home O2 Discharge instructions: Yes Type of respiratory needs?: Oxygen Oxygen frequency: Continuous Continuous oxygen liters per minute: 2 Wound(s) LFA: Wound Type: Skin Tear R posterior back: Wound Type: Puncture bilat buttocks: Wound Type: Pressure Injury ABD: Wound Type: dry and intact sacrum: Wound Type: Pressure Injury Dressing Change: applied foam dressing Therapies Weight Bearing: Full weight bearing Physical Therapy: Eval and Treat Occupational Therapy: Eval and Treat Speech Therapy: Eval and Treat Problem/Diagnosis (1) JAMES (acute kidney injury): Status: Acute Code(s): N17.9 - Acute kidney failure, unspecified (2) Congestive heart failure: Status: Acute Code(s): I50.9 - Heart failure, unspecified (3) Hyperkalemia: Status: Acute Code(s): E87.5 - Hyperkalemia Plan Cardiac arrest * occurred on 09/18. Bradycardia then PEA noted. Had successful ROSC after 6 minutes of high-quality CPR. Cardiology felt bradyarrhythmia may have been related vasovagal event from having a BM. * Had another event on 09/[address] scan. Again, noted bradycardia and PEA. Intubated by Dr. Rivas. Had successful ROSC. Another code blue was called on the , but no note of CPR, this may have been called due to burst cuff on ETT that was replaced. Acute HFrEF * Resolved EF 35% * Metoprolol tartrate 25 BID. No ACEi/ARB given JAMES, so he is on isosorbide and hydralazine. * With pleural effusions s/p thoracentesis. Acute hypoxic respiratory failure * intubated on 09/19 during cardiac arrest. extubated 09/23. Was doing well until his PEG on 09/26 where he was hypoxic. New RML infiltrate. Now on BiPAP. Suspect aspiration. * on Pip/tazo * weaned down to 6l/m Iatrogenic pneumothorax * resolved * thoracentesis on 09/19, then chest tube placed same day. * pulmonary managing chest tube. * Chest tube to waterseal. Tentative plan to remove chest tube on the . JAMES * POCUS review on 09/28 showed collapsable IVC and no right sided hydronephrosis. Therefore, would benefit from additional IVF. * nephrology following * 09/29: improved today after IVF. Likely JAMES due to overdiuresis while he was NPO in patient with solitary kidney Dysphagia * DW speech therapy. They feel that patient will recover slowly. * PEG placed . Tube feeds started on 09/27. * Patient now on pur?ed with direct supervision and liquid by teaspoon only. Will continue to supplement him through the PEG tube until he can eat more adequately. If patient is able to eat completely at some point, the PEG tube will need to be at least 2 months before it can be removed. Debility * very weak overall * Will need SNF upon discharge. Pt now amenable to it. Hypernatremia * will give d5w. monitor DM2 * a1c 6.6. * SSI Chronic conditions: * BPH: tamsulosin VTE prophylaxis: SQ heparin. Allergies/Procedures Done in Hospital Allergies No Known Allergies Allergy (Verified 09/17/24 16:53) Type of Care/Length of Stay Estimated LOS: Convalescent Care Less Than 30 days Type of Care Needed: Skilled Rehab Potential: Fair Prognosis: Fair Additional Orders/Day of Discharge Day of Discharge: 10/02/24 Dietary and Speech Recommendations Dietitian Recommendations/Changes: Adjust Jevity 1.5Cal to 50ml/hr with 300ml water flushes every 4 hours to provide 1800ml calories, 76g protein, and 2712ml of total fluid/day. Once sodium improves move to 150ml flushes every 4 hours. Will adjust TF as needed. Will monitor weight trends closely. Reviewed and approved by Shirley Irwin RD, LISA. Reviewed and approved by Shirley Irwin RD, LISA. Discharge Plan Admission Admit Date/Time: 09/17/24 19:50 Primary Reason for Your Visit: respiratory failure. Attending Provider: Pastor Holder Primary Care Provider: Care Physician,No Primary Consulting Providers: Bhavin Peterson; Ramon Masters; Abeba Valero; Juice Raya Discharge Orders/Prescriptions Prescriptions: New albuterol sulfate 2.5 mg /3 mL (0.083 %) Solution For Nebulization 2.5 mg inhalation Q2H PRN PRN (Reason: SOB &/OR WHEEZING) Qty: 0 0RF chlorhexidine gluconate 2 % Towelette 1 towel topical DAILY Qty: 0 0RF Mucinex DM 30-600 mg Tablet Extended Release 12 Hr 2 tab PO BID Qty: 0 0RF hydralazine 10 mg Tablet 10 mg G-tube TID Qty: 0 0RF ipratropium-albuterol 0.5 mg-3 mg(2.5 mg base)/3 mL Solution For Nebulization 3 ml inhalation Q4H.RT PRN (Reason: Shortness Of Breath) Qty: 0 0RF isosorbide mononitrate 30 mg Tablet Extended Release 24 Hr 30 mg PO DAILY Qty: 0 0RF tamsulosin 0.4 mg Capsule 0.4 mg PO DAILY@1730 Qty: 0 0RF heparin (porcine) 5,000 unit/mL Solution 5,000 unit subcut Q8 Qty: 0 0RF insulin lispro [Humalog KwikPen Insulin] 100 unit/mL Insulin Pen See Protocol subcut Q6 Qty: 0 0RF Protocol: 3. Sliding Scale Insulin Med Dosing Condition: 150-189 mg/dl = 1 unit Condition: 190-229 mg/dl = 2 units Condition: 230-269 mg/dl = 3 units Condition: 270-309 mg/dl = 4 units Condition: 310-349 mg/dl = 5 units Condition: 350-399 mg/dl = 6 units Condition: 400-449 mg/dl = 7 units Condition: Greater than 449 call physician Protocol Text: Suggested for: - Patients on Total Daily Insulin Dose of 37-55 units - Obese, infected, or steroid patients MEDIUM DOSING ALGORITHIM metoprolol tartrate 25 mg Tablet 25 mg G-tube BID Qty: 0 0RF IV with Additives Jevity 1.5 1000 ML 50 mls/hr GT Ordered By: Pastor Holder DO Last Taken: 10/02/24 01:47 50 mls/hr levofloxacin 500 mg tablet 500 mg PO DAILY Qty: 3 0RF Continued aspirin 81 mg tablet,delayed release (DR/EC) 81 mg PO DAILY Discontinued furosemide 40 mg tablet 40 mg PO DAILY 7 Days Qty: 7 0RF Patient Comments: STARTED YESTERDAY- 09/16/24 Referrals / Follow Up: [facility] [Provider Group] - Within 3 Months (to have PEG tube removed, if not being used. ) [facility] [Provider Group] - Within 1 Month Care Physician,No Primary [Primary Care Provider] - Disposition Disposition (needs filled in before D/C Order can be placed): [facility]
--- NOTE | 2024-10-02 11:41 | DS.PCM_ITS ---
Providers Date of Admission: 09/17/24 Primary Care Physician: Kasandra Primary Care Phys Consultations 09/18/24 16:58 Consult: Family Medicine Resident / Pulmonary Medicine Routine Consulting Provider: Intensivists/Pulmonary Med Reason for Consult: S/P CODE BLUE EMERGENT Consult: No Notified: Yes Date Notified: 09/18/24 Time Notified: 13:58 Method of Notification: Verbal 09/18/24 17:02 Consult: Cardiology Routine Consulting Provider: Ramon Masters Reason for Consult: CHF s/p cardiac arrest EMERGENT Consult: No Notified: Yes Date Notified: 09/18/24 Time Notified: 17:02 Method of Notification: Text 09/18/24 19:03 Consult: Nephrology Routine Consulting Provider: Abeba Valero Reason for Consult: JAMES with hyperkalemia EMERGENT Consult: No Notified: Yes Date Notified: 09/18/24 Time Notified: 18:04 Method of Notification: Verbal 09/19/24 00:55 Consult: Urology Routine Consulting Provider: Juice Raya Reason for Consult: suspected blockage EMERGENT Consult: No Notified: Yes Date Notified: 09/19/24 Time Notified: 00:55 Method of Notification: Answering Service 09/25/24 16:33 Consult: Gastroenterology Routine Consulting Provider: June Gastroenterradha Reason for Consult: PEG tube EMERGENT Consult: No Notified: Yes Date Notified: 09/25/24 Time Notified: 16:33 Method of Notification: Text 09/30/24 01:41 Consult: Onc/Wound/greenskeeper supervisor Routine Comment: Reason for Consult:: Buttock Wound Reason For Visit: AE CHF, HYPERKALEMIA, JAMES & MEDICAL NON COMPLIANCE Diagnosis Discharge Diagnosis (1) JAMES (acute kidney injury): Status: Acute Code(s): N17.9 - Acute kidney failure, unspecified (2) Congestive heart failure: Status: Acute Code(s): I50.9 - Heart failure, unspecified (3) Hyperkalemia: Status: Acute Code(s): E87.5 - Hyperkalemia Plan Cardiac arrest * occurred on 09/18. Bradycardia then PEA noted. Had successful ROSC after 6 minutes of high-quality CPR. Cardiology felt bradyarrhythmia may have been related vasovagal event from having a BM. * Had another event on 12/[address] scan. Again, noted bradycardia and PEA. Intubated by Dr. Rivas. Had successful ROSC. Another code blue was called on the , but no note of CPR, this may have been called due to burst cuff on ETT that was replaced. Acute HFrEF * Resolved EF 35% * Metoprolol tartrate 25 BID. No ACEi/ARB given JAMES, so he is on isosorbide and hydralazine. * With pleural effusions s/p thoracentesis. Acute hypoxic respiratory failure * intubated on 09/19 during cardiac arrest. extubated 09/23. Was doing well until his PEG on 09/26 where he was hypoxic. New RML infiltrate. Now on BiPAP. Suspect aspiration. * on Pip/tazo * weaned down to 6l/m Iatrogenic pneumothorax * resolved * thoracentesis on 09/19, then chest tube placed same day. * pulmonary managing chest tube. * Chest tube to waterseal. Tentative plan to remove chest tube on the . JAMES * POCUS review on 09/28 showed collapsable IVC and no right sided hydronephrosis. Therefore, would benefit from additional IVF. * nephrology following * 09/29: improved today after IVF. Likely JAMES due to overdiuresis while he was NPO in patient with solitary kidney Dysphagia * DW speech therapy. They feel that patient will recover slowly. * PEG placed . Tube feeds started on 09/27. * Patient now on pur?ed with direct supervision and liquid by teaspoon only. Will continue to supplement him through the PEG tube until he can eat more adequately. If patient is able to eat completely at some point, the PEG tube will need to be at least 2 months before it can be removed. Debility * very weak overall * Will need SNF upon discharge. Pt now amenable to it. Hypernatremia * will give d5w. monitor DM2 * a1c 6.6. * SSI Chronic conditions: * BPH: tamsulosin VTE prophylaxis: SQ heparin. Medications at Discharge Home Medications aspirin 81 mg tablet,delayed release 81 mg PO DAILY 09/17/24 IV with Additives 50 mls/hr GT 10/02/24 albuterol sulfate 2.5 mg/3 mL (0.083 %) solution for nebulization 2.5 mg (3 mL) inhalation Q2H PRN PRN SOB &/OR WHEEZING #0 mL 10/02/24 chlorhexidine gluconate 2 % towelette 1 towel topical DAILY #0 ea 10/02/24 dextromethorphan-guaifenesin 30 mg-600 mg tablet extended [id number] hr (Mucinex DM) 2 tab PO BID #0 tabs 10/02/24 heparin (porcine) 5,000 unit/mL injection solution 5,000 unit subcut Q8 #0 mL 10/02/24 hydralazine 10 mg tablet 10 mg G-tube TID #0 tabs 10/02/24 insulin lispro 100 unit/mL subcutaneous pen (Humalog KwikPen (U-100) Insulin) See Protocol subcut Q6 #0 mL 10/02/24 ipratropium 0.5 mg-albuterol 3 mg (2.5 mg base)/3 mL nebulization soln 3 ml inhalation Q4H.RT PRN Shortness Of Breath #0 mL 10/02/24 isosorbide mononitrate 30 mg tablet,extended release 24 hr 30 mg PO DAILY #0 tabs 10/02/24 levofloxacin 500 mg tablet 500 mg PO DAILY #3 tabs 10/02/24 metoprolol tartrate 25 mg tablet 25 mg G-tube BID #0 tabs 10/02/24 tamsulosin 0.4 mg capsule 0.4 mg PO DAILY@1730 #0 caps 10/02/24 Hospital Course Procedures 2-D Echocardiogram, Intubation, Peg tube placement, Thoracentesis and - (Chest tube placement) Summary of Care Provided Minutes Spent on Discharge: 50 Hospital Course: Patient presents with shortness of breath and lower extremity edema. Patient diagnosed with heart failure. Course involved diuresis and then intubation, thoracentesis with complication of pneumothorax, requiring a chest tube. Eventual extubation. Patient had pronounced dysphagia postextubation and speech therapy recommended PEG tube placement. That was performed and patient has been started on tube feeds. His dysphagia has still improved though he is still very weak overall so we will continue with speech therapy on PEG tube tube feedings. Patient is very weak overall and will be discharged to the [facility] facility in stable condition. Medical Records Data Medical Nutrition Assessment Dietitian: Malnutrition Criteria Met Start: 09/30/24 14:47 Freq: Status: Active Protocol: Document 09/30/24 14:48 SB (Rec: 09/30/24 14:48 SB [id number]) Nutrition Malnutrition Evidence of Malnutrition Exists Yes Malnutrition (severe): Acute Illness/Injury Evidenced By Weight Loss (Severe),Physical Changes (Moderate) Intake Problem Inadequate Oral Intake Etiology related to swallowing difficulty Signs/Symptoms as evidenced by NPO and need for PEG tube. Status Active Problem Clinical Problem Acute Disease or Injury Related Malnutrition Etiology severe related to inadequate oral intake and fluid loss Signs/Symptoms as evidenced by 19% unintentional weight loss x 2 weeks, moderate wasting in clavicle and temporalis region , BMI 18.2kg/m2 Status Active Problem Swallowing Difficulty Etiology related to dysphagia Signs/Symptoms as evidenced by aspiration and need for PEG tube. Status Active Problem Recommendation Dietitian Recommendations/Changes Adjust Jevity 1.5Cal to 50ml/ hr with 300ml water flushes every 4 hours to provide 1800ml calories, 76g protein, and 2712ml of total fluid/day. Once sodium improves move to 150ml flushes every 4 hours. Will adjust TF as needed. Will monitor weight trends closely. Reviewed and approved by Shirley Irwin RD, LD. Reviewed and approved by Shirley Irwin RD, LD. Weight / BMI Weight Weight: 54.2 kg Body Mass Index (BMI) 18.7 ABG / Lab / Microbiology Data 09/30/24 06:36 10/02/24 07:09 Laboratory: Laboratory Results - last 24 hr 10/01/24 11:50: POC Glucose 252 H 10/01/24 16:58: POC Glucose 157 H 10/02/24 00:35: POC Glucose 224 H 10/02/24 05:28: POC Glucose 213 H 10/02/24 07:09: Sodium 144, Potassium 4.2, Chloride 112 H, Carbon Dioxide 32.0, Anion Gap 0 L, BUN 62 H, Creatinine 1.60 H, Estim Creat Clear Calc 33.40, Est GFR (MDRD) Af Amer 55 L, Est GFR (MDRD) Non-Af 46 L, BUN/Creatinine Ratio 38.8 H , Glucose 206 H, Calcium 8.0 L Microbiology: Microbiology 09/27/24 01:37 Blood Culture (Wb) - Anticubital Right Blood Culture - Final No growth in 5 days. 09/27/24 01:20 Blood Culture (Wb) - Left Hand Blood Culture - Final No growth in 5 days. 09/27/24 05:30 Nasal Secretion MRSA (PCR) - Final 09/27/24 05:30 Urine Catheter - [place] Streptococcus pneumoniae Antigen (M - Final 09/27/24 05:30 Urine Catheter - [place] Legionella Antigen - Final 09/19/24 12:30 Fluid - Pleural (Lung) Gram Stain - Final 09/19/24 12:30 Fluid - Pleural (Lung) Body Fluid Culture - Final Culture exhibits no growth. 09/19/24 12:30 Fluid - Pleural (Lung) Anaerobic Culture - Final No growth in 5 days. 09/18/24 18:30 Blood Culture (Wb) - Anticubital Right Blood Culture - Final No growth in 5 days. 09/18/24 23:38 Stool Ova and Parasites - Final 09/19/24 10:28 Sputum, Induced/[place] Gram Stain - Final 09/19/24 10:28 Sputum, Induced/[place] Respiratory Culture - Final Culture exhibits no growth. 09/19/24 16:00 Urine Catheter - Catheter Legionella Antigen - Final 09/19/24 16:00 Urine Catheter - Catheter Streptococcus pneumoniae Antigen (M - Final 09/19/24 13:13 Nasal Secretion MRSA (PCR) - Final 09/19/24 13:12 Mucosa - Nasopharyngeal SARS-CoV-2, Influenza & RSV (PCR) - Final 09/18/24 23:38 Stool Clostridioides difficile (PCR) - Final 09/18/24 17:33 Mucosa - Nasopharyngeal Respiratory Panel (PCR) - Final D/C Instructions DC O2, CPAP, BIPAP Needs PSN CPAP & BiPAP: BiPAP & CPAP Settings per PSN Mode AVAPS 09/29/24 03:00 Bipap Delivery Device Face Mask 09/29/24 03:00 BiPAP Inspiratory Pressure 16 09/28/24 23:14 BiPAP Expiratory Pressure 14 09/29/24 03:00 BiPAP Rate 12 09/29/24 03:00 Fraction of Inspired Oxygen ( 45 09/29/24 03:00 FIO2) Home Oxygen Instructions: Home O2 discharge Instructions Type of respiratory needs? Oxygen 10/02/24 11:30 DC Oxygen Instruction Oxygen frequency Continuous 10/02/24 11:30 Continuous oxygen liters per 2 10/02/24 11:30 minute Additional Home O2 Discharge instructions: Yes Type of respiratory needs?: Oxygen Oxygen frequency: Continuous Continuous oxygen liters per minute: 2 DC home with Oxygen: Yes Home O2 MD Review: I have reviewed the oxygen testing, and the patient qualifies for home oxygen equipment and portability. The patient is mobile in the home and the community. Meaningful Use Info Meaningful Use Meaningful Use Diagnoses (Choose all that apply): CHF CHF SHANIA/ARB ordered at discharge?: No Reason SHANIA/ARB not ordered?: Worsening renal disease Documented LVEF (%): 30 Ischemic Stroke Statin Dosing Therapy Reference: STATIN DOSE THERAPY REFERENCE: * Patients > 75 years receive moderate or high dose statin therapy. * Patients 75 years or YOUNGER should receive HIGH intensity statin dose unless contraindicated. You will be required to document reason for non-treatment if statin daily dose does not meet guidelines. HIGH DOSE STATIN THERAPY DAILY Atorvastatin > than or = to 40 mg Rosuvastatin > than or = to 20 mg Amlodipine + Atorvastatin > than or = to 2.5/40 mg Ezetimibe + Simvastatin 10/80 mg Simvastatin 80mg Discharge Plan Admission Admit Date/Time: 09/17/24 19:50 Primary Reason for Your Visit: respiratory failure. Attending Provider: Pastor Holder Primary Care Provider: Care Physician,No Primary Consulting Providers: Bhavin Peterson; Ramon Masters; Abeba Valero; Juice Raya Discharge Orders/Prescriptions Prescriptions: New albuterol sulfate 2.5 mg /3 mL (0.083 %) Solution For Nebulization 2.5 mg inhalation Q2H PRN PRN (Reason: SOB &/OR WHEEZING) Qty: 0 0RF chlorhexidine gluconate 2 % Towelette 1 towel topical DAILY Qty: 0 0RF Mucinex DM 30-600 mg Tablet Extended Release 12 Hr 2 tab PO BID Qty: 0 0RF hydralazine 10 mg Tablet 10 mg G-tube TID Qty: 0 0RF ipratropium-albuterol 0.5 mg-3 mg(2.5 mg base)/3 mL Solution For Nebulization 3 ml inhalation Q4H.RT PRN (Reason: Shortness Of Breath) Qty: 0 0RF isosorbide mononitrate 30 mg Tablet Extended Release 24 Hr 30 mg PO DAILY Qty: 0 0RF tamsulosin 0.4 mg Capsule 0.4 mg PO DAILY@1730 Qty: 0 0RF heparin (porcine) 5,000 unit/mL Solution 5,000 unit subcut Q8 Qty: 0 0RF insulin lispro [Humalog KwikPen Insulin] 100 unit/mL Insulin Pen See Protocol subcut Q6 Qty: 0 0RF Protocol: 3. Sliding Scale Insulin Med Dosing Condition: 150-189 mg/dl = 1 unit Condition: 190-229 mg/dl = 2 units Condition: 230-269 mg/dl = 3 units Condition: 270-309 mg/dl = 4 units Condition: 310-349 mg/dl = 5 units Condition: 350-399 mg/dl = 6 units Condition: 400-449 mg/dl = 7 units Condition: Greater than 449 call physician Protocol Text: Suggested for: - Patients on Total Daily Insulin Dose of 37-55 units - Obese, infected, or steroid patients MEDIUM DOSING ALGORITHIM metoprolol tartrate 25 mg Tablet 25 mg G-tube BID Qty: 0 0RF IV with Additives Jevity 1.5 1000 ML 50 mls/hr GT Ordered By: Pastor Holder DO Last Taken: 10/02/24 01:47 50 mls/hr levofloxacin 500 mg tablet 500 mg PO DAILY Qty: 3 0RF Continued aspirin 81 mg tablet,delayed release (DR/EC) 81 mg PO DAILY Discontinued furosemide 40 mg tablet 40 mg PO DAILY 7 Days Qty: 7 0RF Patient Comments: STARTED YESTERDAY- 09/16/24 Referrals / Follow Up: [facility] [Provider Group] - Within 3 Months (to have PEG tube removed, if not being used. ) [facility] [Provider Group] - Within 1 Month Care Physician,No Primary [Primary Care Provider] - Disposition Disposition (needs filled in before D/C Order can be placed): [facility] Charges/Coding Visit Charges Inpatient E&M: 09624 Disch Hosp >30min
[2024-10-02 12:06] LABS: Bedside Glucose 183 mg/dL (74-106)
--- NOTE | 2024-10-02 12:11 | CASEMGMT ---
SW completed a 7000 in [employer] system. Patient will go to [place] under skilled level of care. Physicians will transport patient via wheelchair van. Pili CORDOVA
--- NOTE | 2024-10-02 12:14 | CASEMGMT ---
Discharge Planning Discharge orders, signed med list, and transport time sent to [facility] at [place]. Physicians will transport patient by wheelchair at 1p. Nursing, SW, pt, and his brother (Carroll) updated. Valorie Calloway DC Planning Asst.
== END 2024-10-02 13:40 | disposition skilled nursing facility (03) | DRG 291 ==
LOC: ED 19:35 → PCU 20:00 → ICU 09-23 07:07 → PCU 09-23 07:10 → ICU 09-24 09:39 → PCU 09-24 17:38 → ICU 09-26 19:25 → PCU 09-28 10:19
PROVIDERS: Family Medicine; Internal Medicine; Internal Medicine Critical Care Medicine; Internal Medicine Gastroenterology; Internal Medicine Nephrology; Nurse Practitioner Adult Health; Admitting Provider Internal Medicine; Emergency Provider Emergency Medicine
PROC: 0DJ08ZZ Inspection of Upper Intestinal Tract, Via Natural or Artificial Opening Endoscopic (ICD-10-PCS; CPT 43235; principal; 2024-09-26 15:55)
DX: I13.0 Hypertensive heart and chronic kidney disease with heart failure and stage 1 through stage 4 chronic kidney disease, or unspecified chronic kidney disease (principal); N17.0 Acute kidney failure with tubular necrosis; J69.0 Pneumonitis due to inhalation of food and vomit; E43 Unspecified severe protein-calorie malnutrition; J96.01 Acute respiratory failure with hypoxia; I50.23 Acute on chronic systolic (congestive) heart failure; I46.9 Cardiac arrest, cause unspecified; E87.0 Hyperosmolality and hypernatremia; E87.1 Hypo-osmolality and hyponatremia; R18.8 Other ascites; J95.811 Postprocedural pneumothorax; Q21.12 Patent foramen ovale; R64 Cachexia; J98.11 Atelectasis; J91.8 Pleural effusion in other conditions classified elsewhere; Q60.0 Renal agenesis, unilateral; Z68.1 Body mass index [BMI] 19.9 or less, adult; N04.9 Nephrotic syndrome with unspecified morphologic changes; R13.10 Dysphagia, unspecified; E11.65 Type 2 diabetes mellitus with hyperglycemia; I27.20 Pulmonary hypertension, unspecified; N18.9 Chronic kidney disease, unspecified; E02 Subclinical iodine-deficiency hypothyroidism; E11.22 Type 2 diabetes mellitus with diabetic chronic kidney disease; E88.09 Other disorders of plasma-protein metabolism, not elsewhere classified; E86.9 Volume depletion, unspecified; E87.5 Hyperkalemia; R00.1 Bradycardia, unspecified; E78.5 Hyperlipidemia, unspecified; M19.90 Unspecified osteoarthritis, unspecified site; Z79.4 Long term (current) use of insulin; Z79.82 Long term (current) use of aspirin; Z87.891 Personal history of nicotine dependence; Z86.16 Personal history of COVID-19; N14.11 Contrast-induced nephropathy; R53.81 Other malaise; Z91.199 Patient's noncompliance with other medical treatment and regimen due to unspecified reason; Z53.29 Procedure and treatment not carried out because of patient's decision for other reasons
CPT/HCPCS: 31500; 31720; 32555; 36415; 36600; 70450; 71045; 71046; 71275; 74176; 74230; 76770; 78582; 80048; 80053; 80069; 80307; 81001; 82550; 82803; 82945; 82962; 83036; 83605; 83615; 83735; 83880; 84100; 84153; 84155; 84157; 84439; 84443; 84478; 84481; 84484; 85025; 85379; 87040; 87070; 87075; 87177; 87205; 87209; 87449; 87493; 87631; 87633; 87641; 88108; 88305; 88313; 89050; 92526; 92610; 92611; 92950; 93005; 93306; 93970; 94002; 94003; 94640; 94660; 94668; 94762; 96374; 97110; 97116; 97163; 97166; 97530; 97535; 97802; 97803; 99283; 99285; A9540; A9567; Q9967; A4216; G0103; J0612; J1940; J2405

== ENCOUNTER 2024-10-17 22:18 | Inpatient (IN) | payer OTHER, SELFPAY ==
[2024-10-17 22:21] VITALS: BP 150/64; PULSE 60; RESP 14; TEMP 37.6; O2SAT 95; BMI 20.6
[2024-10-17 23:19] VITALS: BP 148/64; PULSE 60; RESP 18; O2SAT 99
[2024-10-17 23:34] LABS: Anion Gap 3 (5-15); BUN 58 mg/dL (7-18); BUN/Creat Ratio 36.9 RATIO (10-20); Calcium,Total 8.1 mg/dL (8.5-10.1); Chloride 110 mmol/L (98-107); Creatinine, Serum 1.57 mg/dL (0.70-1.30); EST Glomerular Filtration Rate 47 mL/min (>60); Est Glom Filt Rate - Afr Amer 57 mL/min (>60); Estimated Creatinine Clearance 37.56 ml/min; Glucose 134 mg/dL (74-106); Potassium 6.4 mmol/L (3.5-5.1); Sodium Level 134 mmol/L (136-145)
--- NOTE | 2024-10-17 23:40 | EKG12_ITS ---
Test Reason : DYSRHYTHMIA Blood Pressure : */* mmHG Vent. Rate : 60 BPM Atrial Rate : 60 BPM P-R Int : 166 ms QRS Dur : 92 ms QT Int : 448 ms P-R-T Axes : 70 2 17 degrees QTcB Int : 448 ms Normal sinus rhythm Indeterminate axis Cannot rule out Inferior infarct , age undetermined Cannot rule out Anterior infarct , age undetermined Abnormal ECG Confirmed by ARUNA MARION, AMIE ([id number]), greeting card editor MARK RAMSEY ([id number]) on 10/21/2024 7:59:07 AM Referred By: BROOK Confirmed By: AMIE VALDOVINOS MD
[2024-10-18] VITALS (26 sets, daily range): BP systolic 118–149; BP diastolic 54–71; PULSE 55–90; RESP 16–24; TEMP 36.3–37.2; O2SAT 94–100; BMI 20.3
[2024-10-18] MEDS: Insulin Lispro 10 UNIT in Syringe 0 ML 6 UNIT IV ×2 (00:14→09:14)
[2024-10-18] MEDS: Dextrose 10%-Water 250 ML 999 ML IV ×2 (00:14→09:32)
[2024-10-18] MEDS: 0.9% Normal Saline (1000mL) 1,000 ML 999 ML IV (00:14)
[2024-10-18] MEDS: Calcium Gluconate IV 3 GM in Syringe 1 EACH IV (00:14)
[2024-10-18] MEDS: Sodium Polystyrene Sulfonate 15 GM/60 ML UDC PO ×2 (00:18→18:05)
[2024-10-18 00:20] LABS: Blood Gas Specimen Type VEN; O2 Delivery Device Cannula; SITE Not entered; VBG BASE EXCESS -16 mmol/L (-1.0-3.5); VBG Bicarbonate 11 mmol/L (22-26); VBG PO2 41 mmHg (25-40); VBG SO2 72 % (50-70); VBG TCO2 11 mmol/L (23-33); VBG pCO2 22.3 mmHg (41-51); VBG pH 7.29 (7.32-7.42)
--- NOTE | 2024-10-18 00:23 | RAD_ITS ---
EXAM: XR CHEST, 1 VIEW CLINICAL INDICATION: cough TECHNIQUE: Frontal view of the chest. COMPARISON: 09/26/2024. CT scan of the abdomen and pelvis 10/18/2024. FINDINGS: LUNGS AND PLEURAL SPACES: Atelectasis in the lung bases bilaterally. Bilateral pleural effusions right greater than left. No pneumothorax. HEART: Mild cardiomegaly. MEDIASTINUM: Central airways and mediastinal contour are unremarkable. BONES/JOINTS: Unremarkable. No acute fracture. SOFT TISSUES: Unremarkable. RAD/Chest 1 View (Portable) IMPRESSION: 1. Atelectasis in the lung bases bilaterally. Areas of pneumonia not excluded. CT scan of the abdomen and pelvis demonstrates primarily pleural effusions and atelectasis. 2. Mild cardiomegaly. Electronically Signed: Ramon Sprague MD at 1:35 EST ,
--- NOTE | 2024-10-18 00:23 | CT_ITS ---
EXAM: CT ABDOMEN AND PELVIS WITH INTRAVENOUS CONTRAST CLINICAL INDICATION: ? sacral osteo TECHNIQUE: Helically acquired images were obtained of the abdomen and pelvis with intravenous contrast. This CT exam was performed using one or more of the following dose reduction techniques: automated exposure control, adjustment of the mA and/or kV according to patient size, and/or use of iterative reconstruction technique. CONTRAST: 75 cc of Isovue 370 IV. RADIATION DOSE: CTDIvol = 9.68 mGy, DLP = 493.11 mGy-cm COMPARISON: 09/17/2024. FINDINGS: LOWER THORAX: Moderate bilateral pleural effusions and atelectasis in the lung bases bilaterally. No cardiomegaly. ABDOMEN: LIVER: Unremarkable. Homogeneous. No focal mass. GALLBLADDER AND BILE DUCTS: Unremarkable. No calcified gallstones. No gallbladder distention or wall edema. No intra- or extrahepatic biliary ductal dilation. PANCREAS: Unremarkable. No focal cystic or solid mass. SPLEEN: Unremarkable. Normal size without focal cystic or solid mass. ADRENALS: Unremarkable. No nodules. KIDNEYS AND URETERS: Unremarkable. Normal renal size and position. No hydronephrosis. STOMACH AND BOWEL: Unremarkable. No stomach or bowel distention. No focal inflammatory change. PELVIS: APPENDIX: No evidence of acute appendicitis. BLADDER: Unremarkable. REPRODUCTIVE: Unremarkable as visualized. No mass. ABDOMEN and PELVIS: INTRAPERITONEAL SPACE: Unremarkable. No ascites or other fluid collection. No free air. RETROPERITONEAL SPACE: Mild retroperitoneal edema. BONES/JOINTS: Absent left kidney and hypertrophic right kidney. No suspicious lytic or blastic abnormality. SOFT TISSUES: Mild anasarca. No discrete abdominal or pelvic wall hernia. VASCULATURE: Unremarkable. Abdominal aorta is non-dilated. LYMPH NODES: Unremarkable. No enlarged lymph nodes. TUBES, LINES AND DEVICES: Gastrostomy tube in the stomach. CT/Abdomen/Pelvis W IV Cont ONLY IMPRESSION: 1. Moderate bilateral pleural effusions and atelectasis in the lung bases bilaterally. 2. Gastrostomy tube in the stomach. 3. No sacral osteomyelitis. 4. Absent left kidney and hypertrophic right kidney. 5. Mild retroperitoneal edema. 6. Mild anasarca. Electronically Signed: Ramon Sprague MD at 1:45 EST ,
[2024-10-18 00:56] LABS: Mucous, Urine 0 SEEN /hpf (<or=2+)
[2024-10-18 00:59] LABS: Color, Urine Yellow (Yellow); Glucose, Dipstick Normal (Normal); Ketone-Dipstick Negative (Negative); Leukocyte Esterase-Dipstick Negative /ul (Negative); Nitrite-Dipstick Negative (Negative); Occult Blood-Urine 10 /ul (Negative); Protein-Dipstick 100 mg/dl (Negative); Specific Gravity, Urine 1.015 (1.002-1.030); Urine Bilirubin Dipstick Negative (Negative); Urine Clarity Sl. Cloudy (Clear); Urine Urobilinogen Normal (Normal)
[2024-10-18 01:14] LABS: Bacteria 2+ /hpf (None Seen); Red Blood Cells-Urine 0-5 SEEN /hpf (0-5); Squamous Epithelial Cells - UA 0-5 SEEN /hpf (0-5); White Blood Cells 0-5 SEEN /hpf (0-5)
[2024-10-18 01:18] LABS: Lactic Acid 0.8 mmol/L (0.4-1.9)
[2024-10-18 01:52] LABS: Absolute Lymphocyte Count 1.91 X10^3/uL (0.83-4.51); Absolute Neutrophil Count 5.3 X10^3/uL (2.0-7.7); Basophil# 0.05 X10^3/uL; Basophil% 0.6 % (0-1); Eosinophil# 0.71 X10^3/uL; Erythrocyte Sedimentation Rate < 1 mm/hr (0-20); Hematocrit 26.2 % (40-54); Hemoglobin 8.3 g/dL (13.0-16.5); Lymphocyte # 1.91 X10^3/ul (0.83-4.51); Lymphocyte % 21.4 % (19-41); Mean Corp Hgb Conc 31.7 g/dL (32-36); Mean Corpuscular Hgb 28.1 pg (27.0-32.0); Mean Corpuscular Volume 88.8 fL (80-94); Mean Platelet Vol. 10.3 fl (6.2-12.0); Monocyte# 0.96 X10^3/uL; Monocyte% 10.8 % (0-10); NRBC Flagged by Analyzer 0 % (0-5); Neutrophil # 5.26 X10^3/uL (2.7-7.7); Platelet Count 201 K/mm3 (150-450); RBC Distribution Width CV 15.3 % (11.6-14.6); RBC Distribution Width SD 50.3 fl (35.1-43.9); Red Blood Count 2.95 M/mm3 (4.6-6.2); White Blood Count 8.9 K/mm3 (4.4-11.0)
--- NOTE | 2024-10-18 01:55 | ED.RN ---
[facility] TO LET [facility] KNOW [facility] AND [facility]. SPOKE Mateusz WILLSON, GAVE FAX NUMBER TO FAX CHART AND ALL UPDATES. [phone]
--- NOTE | 2024-10-18 02:14 | PCM.HP.STD ---
HPI - General General Date of Admission: 10/18/24 Date of Service: 10/18/24 Chief Complaint: Hyperkalemia HPI Narrative ZOE MENDEZ, is a 69 M who presented to the emergency department at [facility] late in the evening on 10/17/[address] [facility] he is currently residing after a prolonged hospitalization here in September at which time he had multiple cardiac arrest status post SD. Outpatient lab was drawn and he was found to have potassium of 6.9 so sent to the emergency department. In September he was hospitalized here from 09/17/2024 through 10/02/2024 after presenting to the emergency department with shortness of breath and bilateral lower extremity edema. He had an echocardiogram done at that hospitalization showed an EF of 35% with stage II diastolic dysfunction, severe global hypokinesis of the LV, mildly dilated RV and positive bubble study as well as 2+ mitral valve insufficiency. His arrest was bradycardic on telemetry at which time he received 6 minutes of CPR prior to ROSC it was felt that it was likely a vasovagal event. He apparently had another event the following day 1 CT scan and was again was a bradycardic arrest that transition to PEA and had successful ROSC. He did develop bilateral pleural effusions for which thoracentesis was performed. Due to his prolonged intubation he developed dysphagia and a PEG tube was placed. Prior to discharge she was advanced to a pur?ed diet with liquids only by teaspkem. He did have an JAMES which was felt to be possibly related to overdiuresis and the patient with only a solitary kidney. Renal function at discharge was stable when compared to renal function on admission. He had does not appear to take any medications that would precipitate hyperkalemia Vital signs on presentation showed temperature of 99.6 with repeat of 98.3, blood pressure was 150/64, respiratory rate was 14-24 and oxygen saturation 95% on 2 L nasal cannula. CBC shows a normal white count with no left shift but he does have a new anemia with a hemoglobin of 8.3. Hemoglobin at the time of discharge was 12.4 on 09/30/2024. He does have a monocytosis and eosinophilia. A VBG was obtained and his pH was 7.29. Chemistry panel was markedly abnormal with hyponatremia that was mild at 134, hyperkalemia with a potassium of 6.4, hyperchloremia with a chloride of 110, serum bicarb was down to 21 and at discharge she was 32, anion gap was normal with a BUN of 58 and a serum creatinine 1.57. Blood glucose was 134. Lactic acid was normal at 0.8. Specific gravity of his urine was only 6.0 and his urine is not consistent with infection. Ketones were negative. CT of the abdomen pelvis showed moderate bilateral pleural effusions and atelectasis in the lung bases bilaterally, gastrostomy tube in the stomach, no sacral osteomyelitis, absent left 58 with a hypertrophic right kidney, mild retroperitoneal edema and mild anasarca. [facility] Medical History BPH with obstruction/lower urinary tract symptoms Diabetes mellitus, type 2 History of pneumothorax Nonischemic cardiomyopathy Medical non-compliance Congestive heart failure PFO (patent foramen ovale) Cardiac arrest Nephrotic syndrome History of COVID-19 Diabetes Home Medications ?Medication ?Instructions ?Recorded ?Last Taken ?Type aspirin 81 mg tablet,delayed 81 mg PO DAILY 09/17/24 09/17/24 History release IV with Additives 50 mls/hr GT 10/02/24 Unknown Rx albuterol sulfate 2.5 mg/3 mL 2.5 mg (3 mL) inhalation Q2H PRN 10/02/24 Unknown Rx (0.083 %) solution for nebulization PRN SOB &/OR WHEEZING #0 mL chlorhexidine gluconate 2 % 1 towel topical DAILY #0 ea 10/02/24 Unknown Rx towelette dextromethorphan-guaifenesin 30 2 tab PO BID #0 tabs 10/02/24 Unknown Rx mg-600 mg tablet extended ejyxyua18 hr (Mucinex DM) hydralazine 10 mg tablet 10 mg G-tube TID #0 tabs 10/02/24 Unknown Rx insulin lispro 100 unit/mL See Protocol subcut Q6 #0 mL 10/02/24 Unknown Rx subcutaneous pen (Humalog KwikPen (U-100) Insulin) ipratropium 0.5 mg-albuterol 3 mg 3 ml inhalation Q4H.RT PRN 10/02/24 Unknown Rx (2.5 mg base)/3 mL nebulization Shortness Of Breath #0 mL soln isosorbide mononitrate 30 mg 30 mg PO DAILY #0 tabs 12/18/24 Unknown Rx tablet,extended release 24 hr metoprolol tartrate 25 mg tablet 25 mg G-tube BID #0 tabs 10/02/24 Unknown Rx tamsulosin 0.4 mg capsule 0.4 mg PO DAILY@1730 #0 caps 10/02/24 Unknown Rx bisacodyl 10 mg rectal suppository 10 mg HI DAILY PRN constipation 10/17/24 Unknown History (Dulcolax (bisacodyl)) flash glucose scanning reader 10/17/24 Unknown History (FreeStyle Curtis 2 Robinson) gabapentin 300 mg capsule 900 mg PO BID 10/17/24 Unknown History Allergy/AdvReac Type Severity Reaction Status Date / Time No Known Allergies Allergy Verified 09/17/24 16:53 Family History other other (Patient unsure) Surgical History S/P percutaneous endoscopic gastrostomy (PEG) tube placement History of thoracentesis H/O chest tube placement Hx of thumb surgery Social History housing: retirement Smoking Status: Former smoker alcohol intake: never substance use type: does not use ROS Constitutional Constitutional: Reports weakness; Denies anorexia, change in weight, chills, fatigue, fever(s), malaise, night sweats or other Eyes Eyes: Denies blurry vision, change in eye color, change in vision, discharge from eye(s), double vision, erythema, eye pain, loss of vision or other ENT HEENT: Denies abnormal hearing, dysphagia, ear pain, epistaxis, headache(s), hearing loss, nasal congestion, nasal discharge, post nasal drip, sinus pressure, sore throat or other Cardiovascular Cardiovascular: Denies chest pain, claudication, dyspnea on exertion, edema, lightheadedness, orthopnea, palpitations, paroxysmal nocturnal dyspnea, rapid heart rate, syncope or other Respiratory/Chest Respiratory/Chest: Reports shortness of breath with exertion; Denies cough, dyspnea, excessive phlegm production, hemoptysis, productive cough, shortness of breath at rest, wheezing or other Gastrointestinal Gastrointestinal: Denies abdominal pain, coffee ground emesis, constipation, diarrhea, dyspepsia, hematemesis, hematochezia, loose stools, melena, nausea, vomiting or other Genitourinary Genitourinary: Denies burning urination, difficulty urinating, dysuria, hematuria, nocturia, urinary frequency, urinary hesitancy, urinary incontinence, urinary urgency or other Musculoskeletal Musculoskeletal: Denies arthralgias, back pain, joint pain, joint stiffness, joint swelling, myalgias, neck pain or other Neurologic Neurologic: Reports abnormal gait; Denies abnormal speech, confusion, disequilibrium, dizziness, focal weakness, headache(s), numbness, paresthesias, seizure-like activity, seizures, syncope, tingling, tremor(s) or other Psychiatric Psychiatric: Denies anxiety, depression, homicidal ideation, suicidal ideation or other Endocrine Endocrinology: Denies change in body appearance, cold intolerance, excessive sweating, heat intolerance, polydipsia, polyuria or other Hematologic/Lymphatic Hematologic/Lymphatic: Denies anemia, easy bleeding, easy bruising, lymphadenopathy or other Allergic/Immunologic Allergic/Immunologic: Denies rhinitis, hives, eczemia, asthma or other Vital Signs Vital Signs Vital Signs: 10/17/24 22:21 10/17/24 22:25 10/17/24 23:19 Temperature 99.6 F H Temperature Source Oral Pulse Rate 60 60 Respiratory Rate 14 18 Respiratory Effort Normal Non-Labored Respiratory Pattern Normal Blood Pressure 150/64 H 148/64 H Blood Pressure Mean 92 92 Pulse Ox 95 99 Oxygen Delivery Method Nasal Cannula Nasal Cannula Oxygen Flow Rate (L/min) 2 2 10/18/24 00:00 10/18/24 01:00 10/18/24 01:14 Temperature 98.3 F Temperature Source Oral Pulse Rate 61 65 Respiratory Rate 16 17 Respiratory Effort Respiratory Pattern Blood Pressure 145/62 H 126/65 H Blood Pressure Mean 89 85 Pulse Ox 98 95 Oxygen Delivery Method Room Air Nasal Cannula Oxygen Flow Rate (L/min) 2 10/18/24 02:00 10/18/24 02:00 Temperature Temperature Source Pulse Rate 64 64 Respiratory Rate 23 H 24 H Respiratory Effort Respiratory Pattern Blood Pressure 149/62 H 149/62 H Blood Pressure Mean 91 91 Pulse Ox 96 97 Oxygen Delivery Method Room Air Nasal Cannula Oxygen Flow Rate (L/min) 2 Weight Weight: 59.8 kg Body Mass Index (BMI) 20.6 Physical Exam Const alert, oriented x3 and no apparent distress; Negative for average body habitus, healthy appearing or well nourished Constitutional Narrative: Thin, upper middle-aged, white male sitting up in bed, currently on 2 L nasal cannula, appears comfortable, nontoxic General Appearance: cooperative HEENT normocephalic, head/scalp atraumatic and moist oral mucous membranes HEENT Narrative: Temporal wasting, dentition is poor, Mallampati is 1, no thrush Eyes Negative for conjunctivae normal Eyes Narrative: Conjunctiva are pale bilaterally, no scleral icterus Neck no lymphadenopathy and supple Neck Narrative: Trachea midline, no thyroid enlargement Resp no retractions and no use of accessory muscles Resp Narrative: Diminished at bases bilaterally, dullness to percussion at bases bilaterally, mild tachypnea Auscultation: Negative for rales, rhonchi or wheezes Cardio regular rate, regular rhythm, S1 normal heart sound, S2 normal heart sound, no murmurs, no rub, no gallops and no clicks GI normal to inspection, nondistended, normoactive bowel sounds, soft to palpation and non-tender GI Narrative: Abdomen is scaphoid, PEG in left upper quadrant and appears to be healing well Extremity no clubbing, cyanosis or edema Extremity Narrative: Decreased lean muscle mass, no scleral icterus Skin skin turgor normal, no jaundice, no petechiae and no mottling Skin Narrative: Sacral wound noted Neuro oriented x3, moves all extremities and no focal motor deficits Neuro Narrative: Significant generalized weakness, proximal greater than distal, but no focal deficits present Speech: speech normal Psych affect normal Psych Narrative: Very pleasant, interacts appropriately Results Lab / Micro Data 10/18/24 01:36 10/17/24 22:20 Labs: Laboratory Results - last 24 hr 10/17/24 22:20: Sodium 134 L, Potassium 6.4 H*, Chloride 110 H, Carbon Dioxide 21.0, Anion Gap 3 L, BUN 58 H, Creatinine 1.57 H, Estim Creat Clear Calc 37.56, Est GFR (MDRD) Af Amer 57 L, Est GFR (MDRD) Non-Af 47 L, BUN/Creatinine Ratio 36.9 H, Glucose 134 H, Calcium 8.1 L 10/18/24 00:40: Urine Color Yellow, Urine Clarity Sl. Cloudy, Urine pH 6.0, Ur Specific [place] 1.015, Urine Protein 100 H, Urine Glucose (UA) Normal, Urine Ketones Negative, Urine Occult Blood 10 H, Urine Nitrite Negative, Urine Bilirubin Negative, Urine Urobilinogen Normal, Ur Leukocyte Esterase Negative, Urine RBC 0-5 SEEN, Urine WBC 0-5 SEEN, Ur Squamous Epith Cells 0-5 SEEN, Urine Bacteria 2+, Urine Mucus 0 SEEN 10/18/24 00:46: WBC Cancelled, Corrected WBC Cancelled, RBC Cancelled, Hgb Cancelled, Hct Cancelled, MCV Cancelled, MCH Cancelled, MCHC Cancelled, RDW Std Deviation Cancelled, RDW Coeff of Agus Cancelled, Plt Count Cancelled, MPV Cancelled, Immature Gran % (Auto) Cancelled, Neut % (Auto) Cancelled, Lymph % (Auto) Cancelled, [place] % (Auto) Cancelled, Eos % (Auto) Cancelled, Baso % (Auto) Cancelled, Absolute Neuts (auto) Cancelled, Absolute Lymphs (auto) Cancelled, Total Counted Cancelled, Neutrophils % (Manual) Cancelled, Band Neutrophils % Cancelled, Lymphocytes % (Manual) Cancelled, Monocytes % (Manual) Cancelled, Eosinophils % (Manual) Cancelled, Basophils % (Manual) Cancelled, Metamyelocytes % Cancelled, Myelocytes % Cancelled, Promyelocytes % Cancelled, Blast Cells % Cancelled, Plasma Cell % (Manual) Cancelled, Other Cells % Cancelled, Nucleated RBC % Cancelled, Nucleated RBCs/100 WBC Cancelled, Differential Comment Cancelled, Diff Path Review Cancelled, Hypersegmented Neuts Cancelled, Atypical Lymphocytes Cancelled, Reactive Lymphocytes Cancelled, Smudge Cells Cancelled, Toxic Granulation Cancelled, Toxic Vacuolation Cancelled, Dohle Bodies Cancelled, Madalyn Rods Cancelled, Platelet Estimate Cancelled, Plt Morphology Comment Cancelled, RBC Morphology Cancelled 10/18/24 00:46: RBC Morphology Cancelled, Polychromasia Cancelled, Hypochromasia Cancelled, Basophilic Stippling Cancelled, Anisocytosis Cancelled, Microcytosis Cancelled, Macrocytosis Cancelled, Spherocytes Cancelled, Sickle Cells Cancelled, Target Cells Cancelled, Tear Drop Cells Cancelled, Ovalocytes Cancelled, Stomatocytes Cancelled, Ge-Spearman Bodies Cancelled, Jenni Cells Cancelled, Bite Cells Cancelled, Crenated Cell Cancelled, Acanthocytes (Spur) Cancelled, Rouleaux Cancelled, Schistocytes Cancelled, ESR Cancelled, Lactic Acid 0.8, C-React Prot Ext Range 40.70 H, Acetone Level NEGATIVE 10/18/24 01:36: WBC 8.9, RBC 2.95 L, Hgb 8.3 L, Hct 26.2 L, MCV 88.8, MCH 28.1, MCHC 31.7 L, RDW Std Deviation 50.3 H, RDW Coeff of Agus 15.3 H, Plt Count 201, MPV 10.3, Immature Gran % (Auto) 0.200, Neut % (Auto) 59.0, Lymph % (Auto) 21.4, [place] % (Auto) 10.8 H, Eos % (Auto) 8.0 H, Baso % (Auto) 0.6, Absolute Neuts (auto) 5.3, Absolute Lymphs (auto) 1.91, Nucleated RBC % 0, ESR < 1 Micro: Microbiology 10/18/24 00:42 Mucosa - Nasopharyngeal SARS-CoV-2, Influenza & RSV (PCR) - Final ABG Data ABG results: ABG 10/18/24 00:16 Specimen Type MARIE Sample Site Not entered O2 % 2.0 VBG pH 7.29 L VBG pO2 41 H VBG HCO3 11 L VBG Total CO2 11 L VBG O2 Sat (Calc) 72 H VBG Base Excess -16 L POC Mix VBG pCO2 Pt Tmp 22.3 L O2 Delivery Device Cannula Imaging Radiology Impression Abdomen/Pelvis CT 10/18/24 00:23 IMPRESSION: 1. Moderate bilateral pleural effusions and atelectasis in the lung bases bilaterally. 2. Gastrostomy tube in the stomach. 3. No sacral osteomyelitis. 4. Absent left kidney and hypertrophic right kidney. 5. Mild retroperitoneal edema. 6. Mild anasarca. Electronically Signed: Ramon Sprague MD at 1:45 EST , Chest X-Ray 10/18/24 00:23 IMPRESSION: 1. Atelectasis in the lung bases bilaterally. Areas of pneumonia not excluded. CT scan of the abdomen and pelvis demonstrates primarily pleural effusions and atelectasis. 2. Mild cardiomegaly. 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 bicarb 4 times daily -Repeat potassium in a.m. -No EKG changes related to hyperkalemia on presentation -Patient is not on any medications that could precipitate hyperkalemia -Should improve with correction of acidosis -Would recommend outpatient follow-up with nephrology after discharge Bilateral pleural effusions -Patient with previous thoracentesis and iatrogenic pneumothorax with chest tube -Right side thoracentesis was done on 09/19/2025 and removal of 1170 cc of fluid -Right greater than left on imaging so we will start with right thoracentesis -Fluid studies and culture sent -LDH in a.m. -Culture and cytology ordered as well but low suspicion for infectious and likely related to heart failure -With Lasix could look exudative Metabolic acidosis -Secondary to the above RTA type IV treatment as noted above -Should resolve with administration of oral bicarb Acute anemia -Hemoglobin at discharge was 12.4 -8.3 here today -Stool guaiac is negative and no signs of bleeding -Check hepatic panel in a.m. -Iron studies are pending -With no signs of bleeding at this time we will go ahead and utilize DVT prophylaxis and aspirin but low threshold to stop with a drop in his hemoglobin -Will trend and see how he responds to diuresis Please Mrs. Mary Morrow -Echocardiogram on 09/18/2024 showed EF of 35% and stage II diastolic dysfunction with moderate 2+ mitral valve insufficiency as well as a positive bubble study and severe global hypokinesis of the LV with mildly dilated RV -Patient was placed on goal-directed therapy and this will continue to include hydralazine, isosorbide mononitrate and metoprolol -SHANIA and ARB not utilized due to renal function -Will start Lasix 40 mg daily IV push for now and monitor renal function closely -Continue outpatient follow-up Dysphagia -PEG tube placed at last admission -Once tube feed is verified will reinitiate it sounds like bolus feeds were being utilized -Speech therapy consultation -At discharge it was a. He was on pur?e with teaspoon liquids -Okay to give medications with applesauce for now if unable to be crushed Severe malnutrition -Dietitian consulted -Will add supplements once p.o. diet can be initiated per speech therapy Generalized weakness secondary to acute illnesses -PT/OT consultation -Social work/case management consultation for assistance with discharge planning -Patient was at [facility] for [facility] Neuropathy -Patient was on gabapentin 900 mg twice daily which is slightly high for his renal function -Max dose with his current creatinine clearance is 700 twice daily -Will give 600 twice daily and monitor response BPH with obstruction -Continue home Flomax DM-2 -Hemoglobin A1c at last hospitalization was 6.6 -Continue sliding scale -Once p.o. diet initiated should be carb control DVT prophylaxis -Subcu heparin CODE STATUS -Full code as verified Charges/Coding Visit Charges Inpatient E&M: 87724 Init Hosp L3
--- NOTE | 2024-10-18 02:29 | EX.ED.DYSGE1 ---
HPI History of Present Illness Chief Complaint: Abn Labs Informant: patient, EMS and SNF Narrative Narrative: Patient is a 69-year-old male with past medical history of nonischemic cardiomyopathy congestive heart failure type 2 diabetes. He was admitted roughly 1 month ago secondary to cardiopulmonary arrest and NE. He had outpatient laboratory values obtained today and then received a phone call later in the evening stating his potassium was high and he needs to go to the ER for evaluation. The patient states that he feels normal at this time and reports he has been taking the medications as directed. [facility] Medical History BPH with obstruction/lower urinary tract symptoms Diabetes mellitus, type 2 History of pneumothorax Nonischemic cardiomyopathy Medical non-compliance Congestive heart failure PFO (patent foramen ovale) Cardiac arrest Nephrotic syndrome History of COVID-19 Diabetes Home Medications ?Medication ?Instructions ?Recorded ?Last Taken ?Type aspirin 81 mg tablet,delayed 81 mg PO DAILY 09/17/24 09/17/24 History release IV with Additives 50 mls/hr GT 10/02/24 Unknown Rx albuterol sulfate 2.5 mg/3 mL 2.5 mg (3 mL) inhalation Q2H PRN 10/02/24 Unknown Rx (0.083 %) solution for nebulization PRN SOB &/OR WHEEZING #0 mL chlorhexidine gluconate 2 % 1 towel topical DAILY #0 ea 10/02/24 Unknown Rx towelette dextromethorphan-guaifenesin 30 2 tab PO BID #0 tabs 10/02/24 Unknown Rx mg-600 mg tablet extended [id number] hr (Mucinex DM) hydralazine 10 mg tablet 10 mg G-tube TID #0 tabs 10/02/24 Unknown Rx insulin lispro 100 unit/mL See Protocol subcut Q6 #0 mL 10/02/24 Unknown Rx subcutaneous pen (Humalog KwikPen (U-100) Insulin) ipratropium 0.5 mg-albuterol 3 mg 3 ml inhalation Q4H.RT PRN 10/02/24 Unknown Rx (2.5 mg base)/3 mL nebulization Shortness Of Breath #0 mL soln isosorbide mononitrate 30 mg 30 mg PO DAILY #0 tabs 10/02/24 Unknown Rx tablet,extended release 24 hr metoprolol tartrate 25 mg tablet 25 mg G-tube BID #0 tabs 10/02/24 Unknown Rx tamsulosin 0.4 mg capsule 0.4 mg PO DAILY@1730 #0 caps 10/02/24 Unknown Rx bisacodyl 10 mg rectal suppository 10 mg [place] DAILY PRN constipation 10/17/24 Unknown History (Dulcolax (bisacodyl)) flash glucose scanning reader 10/17/24 Unknown History (FreeStyle [place] 2 [place]) gabapentin 300 mg capsule 900 mg PO BID 10/17/24 Unknown History Allergy/AdvReac Type Severity Reaction Status Date / Time No Known Allergies Allergy Verified 09/17/24 16:53 Family History other Surgical History S/P percutaneous endoscopic gastrostomy (PEG) tube placement History of thoracentesis H/O chest tube placement Hx of thumb surgery Social History housing: correction Smoking Status: Former smoker alcohol intake: never substance use type: does not use ROS ROS ED Constitutional Constitutional ED: Denies chills or fever(s) Eyes Eyes: Denies change in vision ENT ENT ED: Denies sore throat Cardiovascular Cardiovascular: Denies chest pain Respiratory/Chest Respiratory/Chest: Denies cough or dyspnea Gastrointestinal Gastrointestinal: Denies abdominal pain, diarrhea, nausea or vomiting Genitourinary Genitourinary ED: Denies dysuria Musculoskeletal Musculoskeletal: Denies myalgias Integumentary Reports other Details: Positive sacral wound Neurologic Neurologic: Reports weakness; Denies headache(s) Hematologic/Lymphatic Hematologic/Lymphatic: Denies easy bleeding or easy bruising EXAM Physical Exam Const Vital Signs: 10/17/24 22:21 10/17/24 22:25 10/17/24 23:19 Temperature 99.6 F H Temperature Source Oral Pulse Rate 60 60 Respiratory Rate 14 18 Respiratory Effort Normal Non-Labored Respiratory Pattern Normal Blood Pressure 150/64 H 148/64 H Blood Pressure Mean 92 92 Pulse Ox 95 99 Oxygen Delivery Method Nasal Cannula Nasal Cannula Oxygen Flow Rate (L/min) 2 2 10/18/24 00:00 10/18/24 01:00 10/18/24 01:14 Temperature 98.3 F Temperature Source Oral Pulse Rate 61 65 Respiratory Rate 16 17 Respiratory Effort Respiratory Pattern Blood Pressure 145/62 H 126/65 H Blood Pressure Mean 89 85 Pulse Ox 98 95 Oxygen Delivery Method Room Air Nasal Cannula Oxygen Flow Rate (L/min) 2 10/18/24 02:00 10/18/24 02:00 Temperature Temperature Source Pulse Rate 64 64 Respiratory Rate 23 H 24 H Respiratory Effort Respiratory Pattern Blood Pressure 149/62 H 149/62 H Blood Pressure Mean 91 91 Pulse Ox 96 97 Oxygen Delivery Method Room Air Nasal Cannula Oxygen Flow Rate (L/min) 2 Positive well developed and cachectic General Appearance ED: well developed, cachectic and pallor Nutritional Appearance: cachectic HEENT HEENT Narrative: No tongue or lip swelling no oral lesions no airway edema or compromise No signs of infection noted in the posterior pharynx Eyes PERRL and EOMs intact bilaterally General Eye ED: Yes pale conjunctiva; Negative for scleral icterus Neck supple and no JVD Chest Wall Chest Narrative: Mild diffuse pain with palpation consistent with previous history of rib fractures but no bony deformity crepitance or subcutaneous emphysema noted Resp normal respiratory effort Resp Narrative: Breath sounds are diminished throughout with mild crackles and rhonchi noted in bilateral bases However no nasal flaring retractions tachypnea or accessory muscle use Cardio regular rate and regular rhythm GI non-tender, non-distended and no masses GI Narrative: Abdomen is soft nontender and nondistended with hypoactive bowel sounds No voluntary guarding or rigidity or pulsatile mass PEG tube is in place without surrounding soft tissue skin changes to suggest infection Auscultation: hypoactive bowel sounds Palpation: soft Narrative: Rectal tone is normal and stool is mucousy brown/green in color and Hemoccult negative Extremity normal to inspection Neuro oriented x3, CN's II-XII intact bilaterally and no sensory deficits noted Sensorium / Orientation: alert Motor Exam: strength 5/5 throughout Psych mental status grossly normal Skin Skin Narrative: Skin is pale in color but capillary refill remains less than 3 seconds Patient has a stage II decubitus ulcer noted mainly along the left sacral/medial buttocks region without secondary findings to suggest infection General Skin Exam: pallor MDM MDM MDM Narrative Medical decision making narrative: Patient arrived to the ER no acute distress. He states he feels normal and is only here based on the abnormal lab values from earlier in the day. There is concern this could be related to hemolysis and lab error so as vitals are stable and he has no complaint I like to simply check a basic metabolic profile. The potassium value was not hemolyzed and was elevated at 6.4. Secondary to this he was given calcium gluconate to stabilize cardiac membranes insulin and glucose as well as Kayexalate. Laboratory studies revealed he also has mild acidosis and therefore there is concern for infection causing his hyperkalemia. Patient's white count is normal serum acetone is negative going against DKA. Urine sample does not show changes consistent with infection. Chest x-ray is negative for obvious pneumonia but it does show bilateral pleural effusions which correlate with his past medical history and need for thoracentesis. Viral swab was also negative. The patient has a sacral wound without obvious signs of infection but there is concern he may have developed osteomyelitis so a CT scan was obtained which did not reveal any abscess or osteo findings. At this time based on his metabolic acidosis and persistent hyperkalemia the case was discussed with hospitalist who agrees to accept him for further care and investigation of his hyperkalemia History & Record Review Discussion w/independent historian: Patient Lab Data Attestation: I reviewed the patient's lab results. Labs: Laboratory Results - last 24 hr 10/17/24 10/18/24 10/18/24 22:20 00:40 00:46 WBC Cancelled Corrected WBC Cancelled RBC Cancelled Hgb Cancelled Hct Cancelled MCV Cancelled MCH Cancelled MCHC Cancelled RDW Std Deviation Cancelled RDW Coeff of Agus Cancelled Plt Count Cancelled MPV Cancelled Immature Gran % (Auto) Cancelled Neut % (Auto) Cancelled Lymph % (Auto) Cancelled [place] % (Auto) Cancelled Eos % (Auto) Cancelled Baso % (Auto) Cancelled Absolute Neuts (auto) Cancelled Absolute Lymphs (auto) Cancelled Total Counted Cancelled Neutrophils % (Manual) Cancelled Band Neutrophils % Cancelled Lymphocytes % (Manual) Cancelled Monocytes % (Manual) Cancelled Eosinophils % (Manual) Cancelled Basophils % (Manual) Cancelled Metamyelocytes % Cancelled Myelocytes % Cancelled Promyelocytes % Cancelled Blast Cells % Cancelled Plasma Cell % (Manual) Cancelled Other Cells % Cancelled Nucleated RBC % Cancelled Nucleated RBCs/100 WBC Cancelled Differential Comment Cancelled Diff Path Review Cancelled Hypersegmented Neuts Cancelled Atypical Lymphocytes Cancelled Reactive Lymphocytes Cancelled Smudge Cells Cancelled Toxic Granulation Cancelled Toxic Vacuolation Cancelled Dohle Bodies Cancelled Madalyn Rods Cancelled Platelet Estimate Cancelled Plt Morphology Comment Cancelled RBC Morphology Cancelled Polychromasia Hypochromasia Basophilic Stippling Anisocytosis Microcytosis Macrocytosis Spherocytes Sickle Cells Target Cells Tear Drop Cells Ovalocytes Stomatocytes Ge-[place]angel[place] Bodies [place] Cells Bite Cells Crenated Cell Acanthocytes (Spur) Rouleaux Schistocytes ESR Sodium 134 L Potassium 6.4 H* Chloride 110 H Carbon Dioxide 21.0 Anion Gap 3 L BUN 58 H Creatinine 1.57 H Estim Creat Clear Calc 37.56 Est GFR (MDRD) Af Amer 57 L Est GFR (MDRD) Non-Af 47 L BUN/Creatinine Ratio 36.9 H Glucose 134 H Lactic Acid Calcium 8.1 L Iron 21 L TIBC 286 Iron Saturation 7.3 L Ferritin 153 C-React Prot Ext Range Urine Color Yellow Urine Clarity Sl. Cloudy Urine pH 6.0 Ur Specific [place] 1.015 Urine Protein 100 H Urine Glucose (UA) Normal Urine Ketones Negative Urine Occult Blood 10 H Urine Nitrite Negative Urine Bilirubin Negative Urine Urobilinogen Normal Ur Leukocyte Esterase Negative Urine RBC 0-5 SEEN Urine WBC 0-5 SEEN Ur Squamous Epith Cells 0-5 SEEN Urine Bacteria 2+ Urine Mucus 0 SEEN Ur Random Sodium 45 Urine Potassium 66.0 Urine Chloride 58 Acetone Level 10/18/24 10/18/24 00:46 01:36 WBC 8.9 Corrected WBC RBC 2.95 L Hgb 8.3 L Hct 26.2 L MCV 88.8 MCH 28.1 MCHC 31.7 L RDW Std Deviation 50.3 H RDW Coeff of Agus 15.3 H Plt Count 201 MPV 10.3 Immature Gran % (Auto) 0.200 Neut % (Auto) 59.0 Lymph % (Auto) 21.4 [place] % (Auto) 10.8 H Eos % (Auto) 8.0 H Baso % (Auto) 0.6 Absolute Neuts (auto) 5.3 Absolute Lymphs (auto) 1.91 Total Counted Neutrophils % (Manual) Band Neutrophils % Lymphocytes % (Manual) Monocytes % (Manual) Eosinophils % (Manual) Basophils % (Manual) Metamyelocytes % Myelocytes % Promyelocytes % Blast Cells % Plasma Cell % (Manual) Other Cells % Nucleated RBC % 0 Nucleated RBCs/100 WBC Differential Comment Diff Path Review Hypersegmented Neuts Atypical Lymphocytes Reactive Lymphocytes Smudge Cells Toxic Granulation Toxic Vacuolation Dohle Bodies Madalyn Rods Platelet Estimate Plt Morphology Comment RBC Morphology Cancelled Polychromasia Cancelled Hypochromasia Cancelled Basophilic Stippling Cancelled Anisocytosis Cancelled Microcytosis Cancelled Macrocytosis Cancelled Spherocytes Cancelled Sickle Cells Cancelled Target Cells Cancelled Tear Drop Cells Cancelled Ovalocytes Cancelled Stomatocytes Cancelled Ge-[place]angeloth Bodies Cancelled Jenni Cells Cancelled Bite Cells Cancelled Crenated Cell Cancelled Acanthocytes (Spur) Cancelled Rouleaux Cancelled Schistocytes Cancelled ESR Cancelled < 1 Sodium Potassium Chloride Carbon Dioxide Anion Gap BUN Creatinine Estim Creat Clear Calc Est GFR (MDRD) Af Amer Est GFR (MDRD) Non-Af BUN/Creatinine Ratio Glucose Lactic Acid 0.8 Calcium Iron TIBC Iron Saturation Ferritin C-React Prot Ext Range 40.70 H Urine Color Urine Clarity Urine pH Ur Specific [place] Urine Protein Urine Glucose (UA) Urine Ketones Urine Occult Blood Urine Nitrite Urine Bilirubin Urine Urobilinogen Ur Leukocyte Esterase Urine RBC Urine WBC Ur Squamous Epith Cells Urine Bacteria Urine Mucus Ur Random Sodium Urine Potassium Urine Chloride Acetone Level NEGATIVE ABG Data ABG results: ABG 10/18/24 00:16 Specimen Type MARIE Sample Site Not entered O2 % 2.0 VBG pH 7.29 L VBG pO2 41 H VBG HCO3 11 L VBG Total CO2 11 L VBG O2 Sat (Calc) 72 H VBG Base Excess -16 L POC Mix VBG pCO2 Pt Tmp 22.3 L O2 Delivery Device Cannula Radiography Diagnostic Testing: Clinical Impression(s) from Imaging Studies Abdomen/Pelvis CT 10/18/24 00:23 IMPRESSION: 1. Moderate bilateral pleural effusions and atelectasis in the lung bases bilaterally. 2. Gastrostomy tube in the stomach. 3. No sacral osteomyelitis. 4. Absent left kidney and hypertrophic right kidney. 5. Mild retroperitoneal edema. 6. Mild anasarca. Electronically Signed: Ramon Sprague MD at 1:45 EST , Chest X-Ray 10/18/24 00:23 IMPRESSION: 1. Atelectasis in the lung bases bilaterally. Areas of pneumonia not excluded. CT scan of the abdomen and pelvis demonstrates primarily pleural effusions and atelectasis. 2. Mild cardiomegaly. Electronically Signed: Ramon Sprague MD at 1:35 EST , Chest x-ray as interpreted by the emergency medicine physician reveals bilateral pleural effusions without obvious infiltrate or pneumothorax Discharge Plan Dx/Rx/DC Orders Clinical Impression: Hyperkalemia, Anemia, Metabolic acidosis, Bilateral pleural effusion Disposition Disposition: Acute Care Hospital [facility] Discharge Date/Time: 10/18/24 03:05
[2024-10-18 02:33] LABS: Ferritin 153 ng/mL (26-388); Iron 21 ug/dL (65-175); Iron Binding Capacity,Total 286 ug/dL (250-450); PERCENT IRON SATURATION 7.3 % (15.0-55.0)
[2024-10-18 03:10] LABS: Urine Sodium 45 mmol/L (Not Establ.)
[2024-10-18 03:28] LABS: Urine Chloride 58 mmol/L (Not Establ.)
[2024-10-18] MEDS: oxyCODONE 5 MG Tablet PO (04:16)
[2024-10-18] MEDS: Furosemide 40 MG/4 ML Vial IV ×4 (04:16→17:11)
[2024-10-18 04:35] LABS: Procalcitonin 0.05 ng/mL (0.00-0.09)
[2024-10-18] MEDS: Sodium Bicarbonate 650 MG Tablet PO ×2 (04:38→09:55)
[2024-10-18] MEDS: hydrALAZINE 10 MG Tablet GT ×3 (06:27→23:22)
[2024-10-18] MEDS: Acetaminophen 500 MG Tablet 1000 MG PO ×3 (06:27→23:23)
[2024-10-18 07:15] LABS: Bedside Glucose 104 mg/dL (74-106)
[2024-10-18 07:25] LABS: Absolute Lymphocyte Count 1.22 X10^3/uL (0.83-4.51); Basophil# 0.06 X10^3/uL; Basophil% 0.8 % (0-1); Eosinophil# 0.52 X10^3/uL; Eosinophils% 6.9 % (0-5); Hematocrit 26.2 % (40-54); Lymphocyte # 1.22 X10^3/ul (0.83-4.51); Lymphocyte % 16.3 % (19-41); Mean Corp Hgb Conc 30.5 g/dL (32-36); Mean Corpuscular Hgb 27.2 pg (27.0-32.0); Mean Corpuscular Volume 89.1 fL (80-94); Mean Platelet Vol. 10.1 fl (6.2-12.0); Monocyte# 0.69 X10^3/uL; Monocyte% 9.2 % (0-10); NRBC Flagged by Analyzer 0 % (0-5); Neutrophil # 4.99 X10^3/uL (2.7-7.7); Neutrophil % 66.5 % (47-70); Platelet Count 193 K/mm3 (150-450); RBC Distribution Width CV 15.3 % (11.6-14.6); RBC Distribution Width SD 50.1 fl (35.1-43.9); Red Blood Count 2.94 M/mm3 (4.6-6.2); White Blood Count 7.5 K/mm3 (4.4-11.0)
[2024-10-18] MEDS: Ipratropium/Albuterol Sulfate 3 ML AMPUL.NEB INHALATION ×3 (07:29→23:30)
[2024-10-18 08:08] LABS: International Normalized Ratio 1.2; Partial Thromboplast Time 32.2 Seconds (24.1-36.2); Prothrombin Time (Protime)PT. 15.8 SECONDS (11.7-14.9)
[2024-10-18 08:13] LABS: ALB/GLOB Ratio 0.4 RATIO (0.9-2.4); AST(SGOT) 52 U/L (15-37); Alanine Aminotransfer ALT/SGPT 58 U/L (16-61); Albumin, Serum 1.9 g/dL (3.2-5.0); Alkaline Phosphatase 269 U/L (45-117); Anion Gap 3 (5-15); BUN 56 mg/dL (7-18); BUN/Creat Ratio 36.8 RATIO (10-20); Calcium,Total 8.6 mg/dL (8.5-10.1); Chloride 110 mmol/L (98-107); Creatinine, Serum 1.52 mg/dL (0.70-1.30); EST Glomerular Filtration Rate 49 mL/min (>60); Est Glom Filt Rate - Afr Amer 59 mL/min (>60); Estimated Creatinine Clearance 38.21 ml/min; Glucose 106 mg/dL (74-106); LDH 201 U/L (87-241); Magnesium 2.5 mg/dL (1.6-2.6); Potassium 6.8 mmol/L (3.5-5.1); Protein, Total 6.9 g/dL (6.4-8.2); Sodium Level 136 mmol/L (136-145)
[2024-10-18] MEDS: Lidocaine 2% (20 ml mdv) 20 ML Vial INFILT (08:13)
--- NOTE | 2024-10-18 08:16 | FLU_PTH ---
PATIENT: ZOE MENDEZ LOC: [facility] U#:[id number] AGE/SX: 69/M ROOM: [facility] RE10/18/[address]: Dr. Juice Moeller MD : 1955 BED: 1 DIS: 10/22/2024 SPEC #: [id number] RECD: 10/18/24 08:38 STATUS: ALIA REQ #: [id number] JONA: 10/18/24 08:[address]: Juice Moeller DEPT: CYTOLOGY RECD BY: Slime Alejo ENTERED: 10/18/24 11:06 SP TYPE: Fluid OTHR DR: MD Dr. Shyanne Singh DO Dr. Paul Nielsen, MD Tissues: Pleural fluid, NOS Procedures: Special Stain Group II Surgery Specimen Level IV Cytospin Fluid HEADER OPERATION: Ultrasound guided thoracentesis fluid PRE-OP DIAGNOSIS: Pleural effusion - right TISSUE SUBMITTED: Thoracentesis fluid for cytology DIAGNOSIS CYTOLOGY Thoracentesis fluid for cytology (cytospins and cellblock): Negative for malignant cells. See comment. mr 10/21/2024 COMMENT Clinical correlation and appropriate follow up are necessary. Please make reference to previous specimen [id number] thoracentesis fluid for cytology with diagnosis of negative for malignant cells. CYTOLOGY STUDY Slides are reviewed. CYTOLOGY GROSS Received is 80 ml of yellow cloudy fluid labeled with the patient's name and and designated per the requisition as Thoracentesis fluid. Submitted for cytology preparation including cell block. Mr 10/18/2024 TC:5 CPT: 94510,63840
--- NOTE | 2024-10-18 08:22 | PN.HOSP_ITS ---
Reason for Visit Reason for Visit: Diagnoses Anemia, unspecified (10/18/24) Acidosis, unspecified (10/18/24) Hyperkalemia (10/18/24) Pleural effusion, not elsewhere classified (10/18/24) Dysphagia, unspecified (10/18/24) Subjective Subjective GENERAL: cooperative but frail looking HEENT: Atraumatic; normocephalic EYES; Anicteric, Normal Conjunctiva NECK; supple, normal thyroid, RESPIRATORY: Diminished to auscultation CARDIOVASCULAR: Regular S1 S2, GI: soft, normoactive bowel sounds, : No Renal angle tenderness; EXTREMITIES: No edema, no clubbing, MUSCULOSKELETAL: no muscle wasting NEURO: Awake; no lateralizing signs. SKIN: No Rash PSYCH; Flat affect Objective Data Objective Data Vital Signs: Vital Signs Temp Pulse Resp BP Pulse Ox O2 Del Method O2 Flow Rate 97.4 F L 68 16 137/67 H 96 Nasal Cannula 3 10/18/24 06:33 10/18/24 06:33 10/18/24 06:33 10/18/24 06:33 10/18/24 06:33 10/18/24 06:33 10/18/24 06:33 Oxygen Flow Rate (L/min) 3 Oxygen Delivery Method Nasal Cannula Weight: 58.9 kg Body Mass Index (BMI) 20.3 Intake & Output: Intake and Output for Last 24 Hours 10/16/24 10/17/24 10/18/24 23:59 23:59 23:59 Intake Total 1310 / 1310 Output Total 500 / 500 Balance 810 / 810 Lab / Micro Data 10/18/24 06:05 10/18/24 06:05 Labs: Laboratory Results - last 24 hr 10/17/24 22:20: Sodium 134 L, Potassium 6.4 H*, Chloride 110 H, Carbon Dioxide 21.0, Anion Gap 3 L, BUN 58 H, Creatinine 1.57 H, Estim Creat Clear Calc 37.56, Est GFR (MDRD) Af Amer 57 L, Est GFR (MDRD) Non-Af 47 L, BUN/Creatinine Ratio 36.9 H, Glucose 134 H, Calcium 8.1 L, Iron 21 L, TIBC 286, Iron Saturation 7.3 L , Ferritin 153 10/18/24 00:40: Urine Color Yellow, Urine Clarity Sl. Cloudy, Urine pH 6.0, Ur Specific [place] 1.015, Urine Protein 100 H, Urine Glucose (UA) Normal, Urine Ketones Negative, Urine Occult Blood 10 H, Urine Nitrite Negative, Urine Bilirubin Negative, Urine Urobilinogen Normal, Ur Leukocyte Esterase Negative, Urine RBC 0-5 SEEN, Urine WBC 0-5 SEEN, Ur Squamous Epith Cells 0-5 SEEN, Urine Bacteria 2+, Urine Mucus 0 SEEN, Ur Random Sodium 45, Urine Potassium 66.0, Urine Chloride 58 10/18/24 00:46: WBC Cancelled, Corrected WBC Cancelled, RBC Cancelled, Hgb Cancelled, Hct Cancelled, MCV Cancelled, MCH Cancelled, MCHC Cancelled, RDW Std Deviation Cancelled, RDW Coeff of Agus Cancelled, Plt Count Cancelled, MPV Cancelled, Immature Gran % (Auto) Cancelled, Neut % (Auto) Cancelled, Lymph % (Auto) Cancelled, [place] % (Auto) Cancelled, Eos % (Auto) Cancelled, Baso % (Auto) Cancelled, Absolute Neuts (auto) Cancelled, Absolute Lymphs (auto) Cancelled, Total Counted Cancelled, Neutrophils % (Manual) Cancelled, Band Neutrophils % Cancelled, Lymphocytes % (Manual) Cancelled, Monocytes % (Manual) Cancelled, Eosinophils % (Manual) Cancelled, Basophils % (Manual) Cancelled, Metamyelocytes % Cancelled, Myelocytes % Cancelled, Promyelocytes % Cancelled, Blast Cells % Cancelled, Plasma Cell % (Manual) Cancelled, Other Cells % Cancelled, Nucleated RBC % Cancelled, Nucleated RBCs/100 WBC Cancelled, Differential Comment Cancelled, Diff Path Review Cancelled, Hypersegmented Neuts Cancelled, Atypical Lymphocytes Cancelled, Reactive Lymphocytes Cancelled, Smudge Cells Cancelled, Toxic Granulation Cancelled, Toxic Vacuolation Cancelled, Dohle Bodies Cancelled, Madalyn Rods Cancelled, Platelet Estimate Cancelled, Plt Morphology Comment Cancelled, RBC Morphology Cancelled 10/18/24 00:46: RBC Morphology Cancelled, Polychromasia Cancelled, Hypochromasia Cancelled, Basophilic Stippling Cancelled, Anisocytosis Cancelled, Microcytosis Cancelled, Macrocytosis Cancelled, Spherocytes Cancelled, Sickle Cells Cancelled, Target Cells Cancelled, Tear Drop Cells Cancelled, Ovalocytes Cancelled, Stomatocytes Cancelled, Ge-[place] Bodies Cancelled, [place] Cells Cancelled, Bite Cells Cancelled, Crenated Cell Cancelled, Acanthocytes (Spur) Cancelled, Rouleaux Cancelled, Schistocytes Cancelled, ESR Cancelled, Lactic Acid 0.8, C-React Prot Ext Range 40.70 H, Procalcitonin 0.05, Acetone Level NEGATIVE 10/18/24 01:36: WBC 8.9, RBC 2.95 L, Hgb 8.3 L, Hct 26.2 L, MCV 88.8, MCH 28.1, MCHC 31.7 L, RDW Std Deviation 50.3 H, RDW Coeff of Agus 15.3 H, Plt Count 201, MPV 10.3, Immature Gran % (Auto) 0.200, Neut % (Auto) 59.0, Lymph % (Auto) 21.4, [place] % (Auto) 10.8 H, Eos % (Auto) 8.0 H, Baso % (Auto) 0.6, Absolute Neuts (auto) 5.3, Absolute Lymphs (auto) 1.91, Nucleated RBC % 0, ESR < 1 10/18/24 06:05: WBC 7.5, RBC 2.94 L, Hgb 8.0 L, Hct 26.2 L, MCV 89.1, MCH 27.2, MCHC 30.5 L, RDW Std Deviation 50.1 H, RDW Coeff of Agus 15.3 H, Plt Count 193, MPV 10.1, Immature Gran % (Auto) 0.300, Neut % (Auto) 66.5, Lymph % (Auto) 16.3 L, [place] % (Auto) 9.2, Eos % (Auto) 6.9 H, Baso % (Auto) 0.8, Absolute Neuts (auto) 5.0, Absolute Lymphs (auto) 1.22, Nucleated RBC % 0, Sodium 136, P otassium 6.8 H*, Chloride 110 H, Carbon Dioxide 22.0, Anion Gap 3 L, BUN 56 H, C reatinine 1.52 H, Estim Creat Clear Calc 38.21, Est GFR (MDRD) Af Amer 59 L, Est GFR (MDRD) Non-Af 49 L, BUN/Creatinine Ratio 36.8 H, Glucose 106, Calcium 8.6, P hosphorus 5.0 H, Magnesium 2.5, Total Bilirubin 0.40, AST 52 H, ALT 58, Alkaline Phosphatase 269 H, Lactate Dehydrogenase 201, Total Protein 6.9, Albumin 1.9 L, Globulin 5.0 H, Albumin/Globulin Ratio 0.4 L 10/18/24 06:57: POC Glucose 104 10/18/24 07:45: PT 15.8 H, INR 1.2, APTT 32.2 Micro: Microbiology 10/18/24 02:28 Stool Stool Occult Blood (LOU) - Final 10/18/24 00:42 Mucosa - Nasopharyngeal SARS-CoV-2, Influenza & RSV (PCR) - Final ABG Data ABG results: ABG 10/18/24 00:16 Specimen Type MARIE Sample Site Not entered O2 % 2.0 VBG pH 7.29 L VBG pO2 41 H VBG HCO3 11 L VBG Total CO2 11 L VBG O2 Sat (Calc) 72 H VBG Base Excess -16 L POC Mix VBG pCO2 Pt Tmp 22.3 L O2 Delivery Device Cannula Radiography Diagnostic Testing: Radiology Impression Abdomen/Pelvis CT 10/18/24 00:23 IMPRESSION: 1. Moderate bilateral pleural effusions and atelectasis in the lung bases bilaterally. 2. Gastrostomy tube in the stomach. 3. No sacral osteomyelitis. 4. Absent left kidney and hypertrophic right kidney. 5. Mild retroperitoneal edema. 6. Mild anasarca. Electronically Signed: Ramon Sprague MD at 1:45 EST Reading Location ID and State: [facility] / [place] Tel , Service support , Chest X-Ray 10/18/24 00:23 IMPRESSION: 1. Atelectasis in the lung bases bilaterally. Areas of pneumonia not excluded. CT scan of the abdomen and pelvis demonstrates primarily pleural effusions and atelectasis. 2. Mild cardiomegaly. Electronically Signed: Ramon Sprague MD at 1:35 EST , Assessment & Plan Assessment/Plan (1) Metabolic acidosis: (2) Dysphagia: (3) Bilateral pleural effusion: (4) Anemia: (5) Hyperkalemia: PLAN: Plan Patient is a 69-year-old gentleman resident as an extended care facility who was brought to the emergency department after he was found to have abnormal labs. Potassium was reported to be 6.9 sent to the ED and subsequently admitted to regular nursing floor for further management 1. Hyperkalemia ? Secondary to a combination of acidosis as well as patient impaired kidney function. Patient has been admitted to monitored bed for continuous monitoring, treatment initiated per protocol with Kayexalate calcium gluconate insulin as well as dextrose. Response to therapy being monitored with serial potassium levels BMP every 4. Consult was placed to nephrology Case discussed with Dr. Valero. Nephrology recommended continuation of patient diuretic therapy with subsequent dose adjustment and discontinuation of sodium bicarb 2. Bilateral pleural effusion ? Consult was placed to interventional radiology for patient to undergo ultrasound-guided thoracocentesis with fluid analysis ordered 3. Anemia ? Secondary to chronic disorder monitoring H&H and transfuse if patient becomes symptomatic or hemoglobin falls below 7 4. Chronic kidney disease stage III ?Consult placed to nephrology 5. History of cardiac arrest following profound bradycardia ? Subsequent 2D echo demonstrated EF of 35% 6. BPH with lower urinary obstructive symptoms - Patient treated with tamsulosin 7. Hypertension ? Blood pressure controlled, home medications continued with dose adjustment as needed 8. Peripheral neuropathy ? Patient is on gabapentin 9. Dysphagia status post PEG tube placement ? Consult placed to dietitian for orders regarding patient tube feeding 10. Diabetes mellitus type II -Placed on Accu-Cheks a.c. and at bedtime and covered with sliding scale insulin 11. DVT prophylaxis ? Subcu heparin Time spent in the patient's overall evaluation,decision-making process, review of diagnostic data, adjustment of management, discussion with other providers, nursing nursing and ancillary staff involved in patient's care documentation, 55 Minutes Charges/Coding Visit Charges Inpatient E&M: 947[address] [facility] L3
--- NOTE | 2024-10-18 08:24 | PCM.OPRPT ---
Problems Associated Problem List Diagnoses (1) Pleural effusion: Multi Select Codes Radiology Radiology US Procedures: 54503 Thoracentesis Operative Report (Standard) Operative Information Date of Procedure: 10/18/24 Pre-Operative Diagnosis: Pleural effusion Post-Operative Diagnosis: Pleural effusion Surgery/Procedure Performed: ultra sound guided eye dropper assembler: No Type of Anesthesia: Local Procedure Start Time: 08:05 Procedure Stop Time: 08:20 Select all DRAINS/GRAFTS/IMPLANTS that apply: None Estimated Blood Loss: 0 Specimen collected: Yes Description of specimen(s) removed: 100 Description of surgery: PROCEDURE: Ultrasound Guided Thoracentesis ORDERING PROVIDER: Dr. Moeller INDICATION: Male, 69 years old. Pleural effusion. PROVIDER: Heather Castillo CNP PROCEDURE: The risks, benefits, and alternatives to the procedure were explained to the patient. The specific risks of bleeding, infection, and pneumothorax requiring chest tube insertion were discussed and accepted. Written informed consent was obtained. The patient was placed in the sitting, upright position. Ultrasonographic evaluation of the bilateral lower pleural spaces was carried out. An adequate pocket was identified in the left lower lobe. The overlying skin was prepped with chlorhexidine and draped in sterile fashion. 2 % lidocaine was administered subcutaneously for local anesthesia. Under ultrasound guidance, a 5-St Helenian thoracentesis needle/catheter system was advanced into the left posterior lower pleural fluid collection. 1400 ml of clear yellow colored fluid was drained. The catheter was removed, and a sterile dressing was applied. The patient tolerated the procedure well. A chest x-ray was ordered. IMPRESSION: Successful ultrasound guided thoracentesis of left pleural effusion. Surgical Findings: None Complications Complications: No
--- NOTE | 2024-10-18 08:25 | RAD_ITS ---
EXAM: XR CHEST, 2 VIEWS CLINICAL INDICATION: post thora TECHNIQUE: Frontal and lateral views of the chest. COMPARISON: 10/18/2024 at 12:58 AM. FINDINGS: LUNGS AND PLEURAL SPACES: Since previous examination there is decreased right pleural effusion and decreased atelectasis in the right lower lung. No pneumothorax. No change left pleural effusion and atelectasis in the left lung base. HEART: Unremarkable. Cardiac silhouette not enlarged. MEDIASTINUM: Central airways and mediastinal contour are unremarkable. BONES/JOINTS: Unremarkable. No acute fracture. SOFT TISSUES: Unremarkable. RAD/Chest Insp/Exp 2 View IMPRESSION: 1. Since previous examination there is decreased right pleural effusion and decreased atelectasis in the right lower lung. No pneumothorax. 2. No change left pleural effusion and atelectasis in the left lung base. Electronically Signed: Ramon Sprague MD at 8:39 EST ,
[2024-10-18 08:28] LABS: AST(SGOT) 51 U/L (15-37); Alanine Aminotransfer ALT/SGPT 62 U/L (16-61); Albumin, Serum 1.9 g/dL (3.2-5.0); Alkaline Phosphatase 263 U/L (45-117); Bilirubin, Direct 0.14 mg/dL (0.00-0.30); Globulin 4.8 g/dL (2.2-4.2); Protein, Total 6.7 g/dL (6.4-8.2)
--- NOTE | 2024-10-18 08:51 | NURSING ---
Nikki monorail charger operator nurse assisting in cardiac tele monitoring at the nurses station.
[2024-10-18] MEDS: Calcium Gluconate 1 GM/10 ML Vial IVP (09:13)
[2024-10-18] MEDS: 0.9% Saline Lock 10 ML Syringe IV ×3 (09:13→17:12)
[2024-10-18] MEDS: Heparin Injection (Vial) 5,000 UNIT/ML VIAL 5000 UNIT SC ×2 (09:29→23:22)
[2024-10-18] MEDS: Gabapentin 600 MG Tablet PO ×2 (09:30→23:23)
[2024-10-18] MEDS: Isosorbide Mononitrate 30 MG Tablet PO (09:30)
[2024-10-18] MEDS: Aspirin E.C. 81 MG Tablet PO (09:30)
[2024-10-18] MEDS: Sodium Polystyrene Sulfonate 15 GM/60 ML UDC 30 GM PO (09:32)
--- NOTE | 2024-10-18 09:32 | CASEMGMT ---
SW met with patient. SW introduced self and role at [facility]. SW asked patient how he was doing and he seemed to be in good spirits. Patient said he is doing well mentally and his upper body is good he just needs to get his legs working. Patient said his plan is to return to [place] for his rehab. Pili CORDOVA
[2024-10-18] MEDS: Albuterol *CONC* 2.5mg/0.5mL VIAL.NEB. 20 MG INHALATION (09:33)
--- NOTE | 2024-10-18 09:36 | CASEMGMT ---
Addendum entered by Valorie Calloway 10/18/24 10:04: Pt will need new precert to return. Valorie Calloway DC Planning Asst. Original Note: Discharge Planning Updates sent to [facility]. Asked if new precert will be needed. Awaiting response. Valorie Calloway DC Planning Asst.
[2024-10-18] MEDS: 0.9% Normal Saline (100mL Bag) 100 ML 15 ML IV (09:46)
[2024-10-18 09:50] LABS: Cytology, Body Fluid / CSF SEE PATHOLOGY REPORT
[2024-10-18] MEDS: Metoprolol Tartrate 25 MG Tablet GT ×2 (09:55→23:22)
[2024-10-18] MEDS: Pantoprazole Sodium 40 MG in 0.9% Normal Saline (100mL MB+) 100 ML 330 MG IV ×2 (09:58→23:21)
[2024-10-18 10:27] LABS: Body Fluid Mononuclear WBC # 0.098 10^3/uL; Body Fluid Mononuclear WBC % 54.7 %; Body Fluid Polynuclear WBC # 0.081 10^3/uL; Body Fluid Polynuclear WBC % 45.3 %; Body Fluid Total Cells Counted 0.199 10^3/ul; White Blood Count/Body Fluid 0.179 10^3/uL
--- NOTE | 2024-10-18 10:52 | PCM.CONS.R ---
Assessment & Plan Assessment/Plan (1) Hyperkalemia: PLAN: During previous hospitalization, his potassium was normal. Reviewed discharge summary, it seems he was not sent on any potassium supplements. Creatinine is close to baseline. No significant hyperglycemia. Bicarbonate 22. Will check a CPK level. Currently not on any medication that can cause hyperkalemia. CT abdomen without any hydronephrosis. For treatment he has received calcium, insulin, dextrose, Kayexalate this morning. He is also received 1 dose of Kayexalate yesterday. He did have a decent bowel movement this morning as per my discussion with staff. Will repeat labs after repeat dose of Kayexalate. I will also increase the dose of Lasix to twice a day. Bicarbonate will be minimal benefit since serum bicarbonate is normal. HPI Consult Data Date of Consult: 10/18/24 HPI Narrative Reason for Consultation: Hyperkalemia HPI Narrative: ZOE MENDEZ, is a 69 M who presents from a correction with hyperkalemia. Nephrology on consultation for the same. He was recently admitted here last month with a cardiac arrest, acute renal failure, congestive heart failure with low ejection fraction. Was discharged to the correction on 02 October. Routine blood work showed significant hyperkalemia and she was sent back. Potassium was 6.2 yesterday, up to 6.8 today. Patient is somewhat somnolent, unable to answer a lot of questions. Does not seem to be in distress. No signs of retention. CT abdomen with atrophic left kidney, hypertrophy of right kidney. [facility] Medical History BPH with obstruction/lower urinary tract symptoms Diabetes mellitus, type 2 History of pneumothorax Nonischemic cardiomyopathy Medical non-compliance Congestive heart failure PFO (patent foramen ovale) Cardiac arrest Nephrotic syndrome History of COVID-19 Diabetes Home Medications ?Medication ?Instructions ?Recorded ?Last Taken ?Type aspirin 81 mg tablet,delayed 81 mg PO DAILY 09/17/24 09/17/24 History release IV with Additives 50 mls/hr GT 10/02/24 Unknown Rx albuterol sulfate 2.5 mg/3 mL 2.5 mg (3 mL) inhalation Q2H PRN 10/02/24 Unknown Rx (0.083 %) solution for nebulization PRN SOB &/OR WHEEZING #0 mL chlorhexidine gluconate 2 % 1 towel topical DAILY #0 ea 10/02/24 Unknown Rx towelette dextromethorphan-guaifenesin 30 2 tab PO BID #0 tabs 10/02/24 Unknown Rx mg-600 mg tablet extended [id number] hr (Mucinex DM) hydralazine 10 mg tablet 10 mg G-tube TID #0 tabs 10/02/24 Unknown Rx insulin lispro 100 unit/mL See Protocol subcut Q6 #0 mL 10/02/24 Unknown Rx subcutaneous pen (Humalog KwikPen (U-100) Insulin) ipratropium 0.5 mg-albuterol 3 mg 3 ml inhalation Q4H.RT PRN 10/02/24 Unknown Rx (2.5 mg base)/3 mL nebulization Shortness Of Breath #0 mL soln isosorbide mononitrate 30 mg 30 mg PO DAILY #0 tabs 10/02/24 Unknown Rx tablet,extended release 24 hr metoprolol tartrate 25 mg tablet 25 mg G-tube BID #0 tabs 10/02/24 Unknown Rx tamsulosin 0.4 mg capsule 0.4 mg PO DAILY@1730 #0 caps 10/02/24 Unknown Rx bisacodyl 10 mg rectal suppository 10 mg [place] DAILY PRN constipation 10/17/24 Unknown History (Dulcolax (bisacodyl)) flash glucose scanning reader 10/17/24 Unknown History (FreeStyle [place] 2 [place]) gabapentin 300 mg capsule 900 mg PO BID 10/17/24 Unknown History Allergy/AdvReac Type Severity Reaction Status Date / Time No Known Allergies Allergy Verified 09/17/24 16:53 Family History other Surgical History S/P percutaneous endoscopic gastrostomy (PEG) tube placement History of thoracentesis H/O chest tube placement Hx of thumb surgery Social History housing: correction Smoking Status: Former smoker alcohol intake: never substance use type: does not use ROS ROS Narrative Negative except above Physical Exam Narrative no obvious distress no pallor no icterus no JVD s1s2 no murmurs lungs clear abdomen soft no organomegaly no edema no cyanosis Lab / Micro Data 10/18/24 06:05 10/18/24 06:05 Labs: Laboratory Results - last 24 hr 10/17/24 22:20: Sodium 134 L, Potassium 6.4 H*, Chloride 110 H, Carbon Dioxide 21.0, Anion Gap 3 L, BUN 58 H, Creatinine 1.57 H, Estim Creat Clear Calc 37.56, Est GFR (MDRD) Af Amer 57 L, Est GFR (MDRD) Non-Af 47 L, BUN/Creatinine Ratio 36.9 H, Glucose 134 H, Calcium 8.1 L, Iron 21 L, TIBC 286, Iron Saturation 7.3 L, Ferritin 153 10/18/24 00:40: Urine Color Yellow, Urine Clarity Sl. Cloudy, Urine pH 6.0, Ur Specific [place] 1.015, Urine Protein 100 H, Urine Glucose (UA) Normal, Urine Ketones Negative, Urine Occult Blood 10 H, Urine Nitrite Negative, Urine Bilirubin Negative, Urine Urobilinogen Normal, Ur Leukocyte Esterase Negative, Urine RBC 0-5 SEEN, Urine WBC 0-5 SEEN, Ur Squamous Epith Cells 0-5 SEEN, Urine Bacteria 2+, Urine Mucus 0 SEEN, Ur Random Sodium 45, Urine Potassium 66.0, Urine Chloride 58 10/18/24 00:46: WBC Cancelled, Corrected WBC Cancelled, RBC Cancelled, Hgb Cancelled, Hct Cancelled, MCV Cancelled, MCH Cancelled, MCHC Cancelled, RDW Std Deviation Cancelled, RDW Coeff of Agus Cancelled, Plt Count Cancelled, MPV Cancelled, Immature Gran % (Auto) Cancelled, Neut % (Auto) Cancelled, Lymph % (Auto) Cancelled, [place] % (Auto) Cancelled, Eos % (Auto) Cancelled, Baso % (Auto) Cancelled, Absolute Neuts (auto) Cancelled, Absolute Lymphs (auto) Cancelled, Total Counted Cancelled, Neutrophils % (Manual) Cancelled, Band Neutrophils % Cancelled, Lymphocytes % (Manual) Cancelled, Monocytes % (Manual) Cancelled, Eosinophils % (Manual) Cancelled, Basophils % (Manual) Cancelled, Metamyelocytes % Cancelled, Myelocytes % Cancelled, Promyelocytes % Cancelled, Blast Cells % Cancelled, Plasma Cell % (Manual) Cancelled, Other Cells % Cancelled, Nucleated RBC % Cancelled, Nucleated RBCs/100 WBC Cancelled, Differential Comment Cancelled, Diff Path Review Cancelled, Hypersegmented Neuts Cancelled, Atypical Lymphocytes Cancelled, Reactive Lymphocytes Cancelled, Smudge Cells Cancelled, Toxic Granulation Cancelled, Toxic Vacuolation Cancelled, Dohle Bodies Cancelled, Madalyn Rods Cancelled, Platelet Estimate Cancelled, Plt Morphology Comment Cancelled, RBC Morphology Cancelled 10/18/24 00:46: RBC Morphology Cancelled, Polychromasia Cancelled, Hypochromasia Cancelled, Basophilic Stippling Cancelled, Anisocytosis Cancelled, Microcytosis Cancelled, Macrocytosis Cancelled, Spherocytes Cancelled, Sickle Cells Cancelled, Target Cells Cancelled, Tear Drop Cells Cancelled, Ovalocytes Cancelled, Stomatocytes Cancelled, [place] Bodies Cancelled, Jenni Cells Cancelled, Bite Cells Cancelled, Crenated Cell Cancelled, Acanthocytes (Spur) Cancelled, Rouleaux Cancelled, Schistocytes Cancelled, ESR Cancelled, Lactic Acid 0.8, C-React Prot Ext Range 40.70 H, Procalcitonin 0.05, Acetone Level NEGATIVE 10/18/24 01:36: WBC 8.9, RBC 2.95 L, Hgb 8.3 L, Hct 26.2 L, MCV 88.8, MCH 28.1, MCHC 31.7 L, RDW Std Deviation 50.3 H, RDW Coeff of Agus 15.3 H, Plt Count 201, MPV 10.3, Immature Gran % (Auto) 0.200, Neut % (Auto) 59.0, Lymph % (Auto) 21.4, [place] % (Auto) 10.8 H, Eos % (Auto) 8.0 H, Baso % (Auto) 0.6, Absolute Neuts (auto) 5.3, Absolute Lymphs (auto) 1.91, Nucleated RBC % 0, ESR < 1 10/18/24 06:05: WBC 7.5, RBC 2.94 L, Hgb 8.0 L, Hct 26.2 L, MCV 89.1, MCH 27.2, MCHC 30.5 L, RDW Std Deviation 50.1 H, RDW Coeff of Agus 15.3 H, Plt Count 193, MPV 10.1, Immature Gran % (Auto) 0.300, Neut % (Auto) 66.5, Lymph % (Auto) 16.3 L, Swift % (Auto) 9.2, Eos % (Auto) 6.9 H, Baso % (Auto) 0.8, Absolute Neuts (auto) 5.0, Absolute Lymphs (auto) 1.22, Nucleated RBC % 0, Sodium 136 10/18/24 06:05: Sodium Cancelled, Potassium 6.8 H* 10/18/24 06:05: Potassium Cancelled, Chloride 110 H 10/18/24 06:05: Chloride Cancelled, Carbon Dioxide 22.0 10/18/24 06:05: Carbon Dioxide Cancelled, Anion Gap 3 L 10/18/24 06:05: Anion Gap Cancelled, BUN 56 H 10/18/24 06:05: BUN Cancelled, Creatinine 1.52 H 10/18/24 06:05: Creatinine Cancelled, Estim Creat Clear Calc 38.21 10/18/24 06:05: Estim Creat Clear Calc Cancelled, Est GFR (MDRD) Af Amer 59 L 10/18/24 06:05: Est GFR (MDRD) Af Amer Cancelled, Est GFR (MDRD) Non-Af 49 L 10/18/24 06:05: Est GFR (MDRD) Non-Af Cancelled, BUN/Creatinine Ratio 36.8 H 10/18/24 06:05: BUN/Creatinine Ratio Cancelled, Glucose 106 10/18/24 06:05: Glucose Cancelled, Calcium 8.6 10/18/24 06:05: Calcium Cancelled, Phosphorus 5.0 H, Magnesium 2.5, Total Bilirubin 0.40 10/18/24 06:05: Total Bilirubin 0.40, Direct Bilirubin 0.14, AST 52 H 10/18/24 06:05: AST 51 H, ALT 58 10/18/24 06:05: ALT 62 H, Alkaline Phosphatase 269 H 10/18/24 06:05: Alkaline Phosphatase 263 H, Lactate Dehydrogenase 201, Total Protein 6.9 10/18/24 06:05: Total Protein 6.7, Albumin 1.9 L 10/18/24 06:05: Albumin 1.9 L, Globulin 5.0 H 10/18/24 06:05: Globulin 4.8 H, Albumin/Globulin Ratio 0.4 L 10/18/24 06:57: POC Glucose 104 10/18/24 07:45: PT 15.8 H, INR 1.2, APTT 32.2 10/18/24 08:16: Fluid WBC 0.179, Fluid Tot Cell Count 0.199, Fld Polynuclear WBCs # 0.081, Fld Polynuclear WBCs % 45.3, Fluid Mononuclear WBCs 0.098, Fld Mononuclear WBCs % 54.7 Micro: Microbiology 10/18/24 02:28 Stool Stool Occult Blood (LOU) - Final 10/18/24 00:42 Mucosa - Nasopharyngeal SARS-CoV-2, Influenza & RSV (PCR) - Final ABG Data ABG results: ABG 10/18/24 00:16 Specimen Type MARIE Sample Site Not entered O2 % 2.0 VBG pH 7.29 L VBG pO2 41 H VBG HCO3 11 L VBG Total CO2 11 L VBG O2 Sat (Calc) 72 H VBG Base Excess -16 L POC Mix VBG pCO2 Pt Tmp 22.3 L O2 Delivery Device Cannula Imaging Radiology Impression Abdomen/Pelvis CT 10/18/24 00:23 IMPRESSION: 1. Moderate bilateral pleural effusions and atelectasis in the lung bases bilaterally. 2. Gastrostomy tube in the stomach. 3. No sacral osteomyelitis. 4. Absent left kidney and hypertrophic right kidney. 5. Mild retroperitoneal edema. 6. Mild anasarca. Electronically Signed: Ramon Sprague MD at 1:45 EST , Chest X-Ray 10/18/24 00:23 IMPRESSION: 1. Atelectasis in the lung bases bilaterally. Areas of pneumonia not excluded. CT scan of the abdomen and pelvis demonstrates primarily pleural effusions and atelectasis. 2. Mild cardiomegaly. Electronically Signed: Ramon Sprague MD at 1:35 EST , Chest X-Ray 10/18/24 08:25 IMPRESSION: 1. Since previous examination there is decreased right pleural effusion and decreased atelectasis in the right lower lung. No pneumothorax. 2. No change left pleural effusion and atelectasis in the left lung base. Electronically Signed: Ramon Sprague MD at 8:39 EST ,
--- NOTE | 2024-10-18 10:57 | WOUNDNOTE ---
wound photo: sacrum
[2024-10-18 11:18] LABS: Glucose, Body Fluid 118 mg/dL (40-70); LDH,Body Fluid 110 Units/L (Not Establ.); Protein, Body Fluid 2.7 g/dL (Not Establ.)
[2024-10-18 12:04] LABS: Bedside Glucose 89 mg/dL (74-106)
[2024-10-18 12:04] LABS: Red Cell Count/Body Fluid 35 /mm3
[2024-10-18 12:11] LABS: Protein, Urine (Random) 52.1 mg/dL (<11.9); Protein:Creat Ratio 2493 mg/g CRE (0-200)
[2024-10-18 13:03] LABS: Appearance/Body Fluid CLEAR; Color/Body Fluid YELLOW; Source- Body Fluid PLEURAL FLUID/RIGHT
[2024-10-18 13:06] LABS: Lymphocytes 23 %; Monocytes 22 %; Neutrophil (Segs) 55 %
[2024-10-18 13:10] LABS: CPK Total, Creatine Kinase 28 U/L (39-308)
[2024-10-18 13:10] LABS: Anion Gap 5 (5-15); BUN 57 mg/dL (7-18); BUN/Creat Ratio 32.8 RATIO (10-20); Calcium,Total 8.9 mg/dL (8.5-10.1); Chloride 110 mmol/L (98-107); Creatinine, Serum 1.74 mg/dL (0.70-1.30); EST Glomerular Filtration Rate 42 mL/min (>60); Est Glom Filt Rate - Afr Amer 50 mL/min (>60); Estimated Creatinine Clearance 33.38 ml/min; Glucose 100 mg/dL (74-106); Potassium 5.3 mmol/L (3.5-5.1); Sodium Level 137 mmol/L (136-145)
[2024-10-18 15:07] LABS: Auto B Fluid Analyzer BKGD Ct COUNTS W/IN LIMITS (W/IN LIMITS); Body Fluid QC Type(s) BF1Q
[2024-10-18] MEDS: Tamsulosin HCl 0.4 MG Capsule PO (17:12)
[2024-10-18] MEDS: Juven (unflavored) Packet 1 PACKET PO (17:12)
--- NOTE | 2024-10-18 17:19 | NURSING ---
awaiting tube feeding bag from pharmacy, states they will tube it up shortly.
[2024-10-18 17:23] LABS: Bedside Glucose 74 mg/dL (74-106)
[2024-10-18 17:23] LABS: Anion Gap 5 (5-15); BUN 58 mg/dL (7-18); BUN/Creat Ratio 31.9 RATIO (10-20); Calcium,Total 8.4 mg/dL (8.5-10.1); Chloride 111 mmol/L (98-107); Creatinine, Serum 1.82 mg/dL (0.70-1.30); EST Glomerular Filtration Rate 39 mL/min (>60); Est Glom Filt Rate - Afr Amer 48 mL/min (>60); Estimated Creatinine Clearance 31.91 ml/min; Glucose 86 mg/dL (74-106); Potassium 5.8 mmol/L (3.5-5.1); Sodium Level 139 mmol/L (136-145)
[2024-10-18] MEDS: Jevity 1.5 1,000 ML 55 ML GT (17:34)
[2024-10-18 20:53] LABS: Anion Gap 6 (5-15); BUN 61 mg/dL (7-18); Calcium,Total 8.6 mg/dL (8.5-10.1); Chloride 110 mmol/L (98-107); Creatinine, Serum 1.85 mg/dL (0.70-1.30); EST Glomerular Filtration Rate 39 mL/min (>60); Est Glom Filt Rate - Afr Amer 47 mL/min (>60); Glucose 124 mg/dL (74-106); Potassium 5.4 mmol/L (3.5-5.1); Sodium Level 139 mmol/L (136-145)
[2024-10-18] MEDS: Insulin Lispro 100 UNIT/ML INSULN.PEN SC (23:34)
[2024-10-18 23:45] LABS: Bedside Glucose 163 mg/dL (74-106)
[2024-10-19] VITALS (15 sets, daily range): BP systolic 121–139; BP diastolic 56–77; PULSE 61–75; RESP 16–18; TEMP 36.6–37.3; O2SAT 88–98; BMI 19.1
[2024-10-19] MEDS: Ipratropium/Albuterol Sulfate 3 ML AMPUL.NEB INHALATION ×5 (03:44→20:15)
[2024-10-19] MEDS: Acetaminophen 500 MG Tablet 1000 MG PO ×3 (06:13→22:39)
[2024-10-19] MEDS: hydrALAZINE 10 MG Tablet GT ×3 (06:13→22:38)
[2024-10-19 06:38] LABS: Bedside Glucose 143 mg/dL (74-106)
[2024-10-19 07:00] LABS: Absolute Lymphocyte Count 1.23 X10^3/uL (0.83-4.51); Absolute Neutrophil Count 3.2 X10^3/uL (2.0-7.7); Basophil# 0.05 X10^3/uL; Basophil% 0.9 % (0-1); Eosinophil# 0.73 X10^3/uL; Eosinophils% 12.7 % (0-5); Hematocrit 26.1 % (40-54); Hemoglobin 8.2 g/dL (13.0-16.5); Lymphocyte # 1.23 X10^3/ul (0.83-4.51); Lymphocyte % 21.4 % (19-41); Mean Corp Hgb Conc 31.4 g/dL (32-36); Mean Corpuscular Hgb 27.8 pg (27.0-32.0); Mean Corpuscular Volume 88.5 fL (80-94); Mean Platelet Vol. 10.5 fl (6.2-12.0); Monocyte# 0.49 X10^3/uL; Monocyte% 8.5 % (0-10); NRBC Flagged by Analyzer 0 % (0-5); Neutrophil # 3.23 X10^3/uL (2.7-7.7); Neutrophil % 56.3 % (47-70); Platelet Count 195 K/mm3 (150-450); RBC Distribution Width CV 15.3 % (11.6-14.6); RBC Distribution Width SD 49.9 fl (35.1-43.9); Red Blood Count 2.95 M/mm3 (4.6-6.2); White Blood Count 5.7 K/mm3 (4.4-11.0)
[2024-10-19 07:18] LABS: Anion Gap 6 (5-15); BUN 66 mg/dL (7-18); BUN/Creat Ratio 33.8 RATIO (10-20); Calcium,Total 7.9 mg/dL (8.5-10.1); Chloride 108 mmol/L (98-107); Creatinine, Serum 1.95 mg/dL (0.70-1.30); EST Glomerular Filtration Rate 36 mL/min (>60); Est Glom Filt Rate - Afr Amer 44 mL/min (>60); Estimated Creatinine Clearance 27.91 ml/min; Glucose 164 mg/dL (74-106); Magnesium 2.3 mg/dL (1.6-2.6); Phosphorus 6.6 mg/dL (2.5-4.9); Potassium 5.2 mmol/L (3.5-5.1); Sodium Level 138 mmol/L (136-145)
[2024-10-19] MEDS: Metoprolol Tartrate 25 MG Tablet GT ×2 (08:00→22:38)
[2024-10-19] MEDS: Juven (unflavored) Packet 1 PACKET PO ×2 (08:00→13:34)
[2024-10-19] MEDS: Furosemide 40 MG/4 ML Vial IV (08:00)
[2024-10-19] MEDS: Isosorbide Mononitrate 30 MG Tablet PO (08:03)
[2024-10-19] MEDS: Heparin Injection (Vial) 5,000 UNIT/ML VIAL 5000 UNIT SC ×2 (08:04→22:38)
[2024-10-19] MEDS: Pantoprazole Sodium 40 MG in 0.9% Normal Saline (100mL MB+) 100 ML 330 MG IV ×2 (08:12→22:38)
[2024-10-19] MEDS: oxyCODONE 5 MG Tablet PO (08:13)
[2024-10-19] MEDS: Gabapentin 600 MG Tablet PO ×2 (08:13→22:38)
[2024-10-19] MEDS: Aspirin E.C. 81 MG Tablet PO (08:13)
--- NOTE | 2024-10-19 08:32 | PN.HOSP_ITS ---
Reason for Visit Reason for Visit: Diagnoses Anemia, unspecified (10/18/24) Acidosis, unspecified (10/18/24) Hyperkalemia (10/18/24) Pleural effusion, not elsewhere classified (10/18/24) Dysphagia, unspecified (10/18/24) Subjective Subjective Patient did receive additional Kayexalate in the evening given persistently high potassium levels. Potassium down to 5.2 as of this a.m. Objective Data Objective Data Vital Signs: Vital Signs Temp Pulse Resp BP Pulse Ox O2 Del Method O2 Flow Rate 99.0 F 72 18 139/77 H 92 Room Air 2 10/19/24 03:15 10/19/24 08:00 10/19/24 07:20 10/19/24 08:00 10/19/24 07:20 10/19/24 07:20 10/18/24 20:30 Oxygen Flow Rate (L/min) 2 Oxygen Delivery Method Room Air Weight: 55.2 kg Body Mass Index (BMI) 19.1 Intake & Output: Intake and Output for Last 24 Hours 10/17/24 10/18/24 10/19/24 23:59 23:59 23:59 Intake Total 2028.25 / 2028. Output Total 2650 / 2650 500 / 500 Balance -620.75 / -620.75 -500 / -500 Lab / Micro Data 10/19/24 06:22 10/19/24 06:22 Labs: Laboratory Results - last 24 hr 10/18/24 06:05: Sodium Cancelled, Potassium Cancelled, Chloride Cancelled, Carbon Dioxide Cancelled, Anion Gap Cancelled, BUN Cancelled, Creatinine Cancelled, Estim Creat Clear Calc Cancelled, Est GFR (MDRD) Af Amer Cancelled, Est GFR (MDRD) Non-Af Cancelled, BUN/Creatinine Ratio Cancelled, Glucose Cancelled, Calcium Cancelled, Total Creatine Kinase 28 L 10/18/24 08:16: Fluid Source PLEURAL FLUID/RIGHT, Fluid Color YELLOW, Fluid Appearance CLEAR, Fluid WBC 0.179, Fluid RBC 35, Fluid Tot Cell Count 0.199, Fld Polynuclear WBCs # 0.081, Fld Polynuclear WBCs % 45.3, Fluid Mononuclear WBCs 0.098, Fld Mononuclear WBCs % 54.7, Fluid Neutrophils 55, Fluid Lymphocytes 23, Fluid Monocytes 22, Fl Pathologist Comment May follow, Fluid Glucose 118 H, Fluid Total Protein 2.7, Fluid LDH 110, Fluid Comment 2 SEE COMMENT 10/18/24 11:28: POC Glucose 89 10/18/24 11:30: U Random Total Protein 52.1 H, Urine Creatinine 20.90, P rotein/Creatinin Ratio 2493 H 10/18/24 12:04: Sodium 137, Potassium 5.3 H, Chloride 110 H, Carbon Dioxide 22.0, Anion Gap 5, BUN 57 H, Creatinine 1.74 H, Estim Creat Clear Calc 33.38, E st GFR (MDRD) Af Amer 50 L, Est GFR (MDRD) Non-Af 42 L, BUN/Creatinine Ratio 32.8 H, Glucose 100, Calcium 8.9 10/18/24 16:40: Sodium 139, Potassium 5.8 H, Chloride 111 H, Carbon Dioxide 23.0, Anion Gap 5, BUN 58 H, Creatinine 1.82 H, Estim Creat Clear Calc 31.91, E st GFR (MDRD) Af Amer 48 L, Est GFR (MDRD) Non-Af 39 L, BUN/Creatinine Ratio 31.9 H, Glucose 86, Calcium 8.4 L 10/18/24 17:05: POC Glucose 74 10/18/24 20:20: Sodium 139, Potassium 5.4 H, Chloride 110 H, Carbon Dioxide 23.0, Anion Gap 6, BUN 61 H, Creatinine 1.85 H, Estim Creat Clear Calc 31.40, E st GFR (MDRD) Af Amer 47 L, Est GFR (MDRD) Non-Af 39 L, BUN/Creatinine Ratio 33.0 H, Glucose 124 H, Calcium 8.6 10/18/24 23:18: POC Glucose 163 H 10/19/24 06:12: POC Glucose 143 H 10/19/24 06:22: WBC 5.7, RBC 2.95 L, Hgb 8.2 L, Hct 26.1 L, MCV 88.5, MCH 27.8, MCHC 31.4 L, RDW Std Deviation 49.9 H, RDW Coeff of Agus 15.3 H, Plt Count 195, MPV 10.5, Immature Gran % (Auto) 0.200, Neut % (Auto) 56.3, Lymph % (Auto) 21.4, [place] % (Auto) 8.5, Eos % (Auto) 12.7 H, Baso % (Auto) 0.9, Absolute Neuts (auto) 3.2, Absolute Lymphs (auto) 1.23, Nucleated RBC % 0, Sodium 138, Potassium 5.2 H , Chloride 108 H, Carbon Dioxide 24.0, Anion Gap 6, BUN 66 H, Creatinine 1.95 H, Estim Creat Clear Calc 27.91, Est GFR (MDRD) Af Amer 44 L, Est GFR (MDRD) Non-Af 36 L, BUN/Creatinine Ratio 33.8 H, Glucose 164 H, Calcium 7.9 L, Phosphorus 6.6 H, Magnesium 2.3 Micro: Microbiology 10/18/24 08:16 Fluid - Pleural (Lung) Gram Stain - Final 10/18/24 02:28 Stool Stool Occult Blood (LOU) - Final 10/18/24 00:42 Mucosa - Nasopharyngeal SARS-CoV-2, Influenza & RSV (PCR) - Final Radiography Diagnostic Testing: Radiology Impression Chest X-Ray 10/18/24 08:25 IMPRESSION: 1. Since previous examination there is decreased right pleural effusion and decreased atelectasis in the right lower lung. No pneumothorax. 2. No change left pleural effusion and atelectasis in the left lung base. Electronically Signed: Ramon Sprague MD at 8:39 EST , Physical Exam Narrative GENERAL: cooperative but frail looking HEENT: Atraumatic; normocephalic EYES; Anicteric, Normal Conjunctiva NECK; supple, normal thyroid, RESPIRATORY: Diminished to auscultation CARDIOVASCULAR: Regular S1 S2, GI: soft, normoactive bowel sounds, : No Renal angle tenderness; EXTREMITIES: No edema, no clubbing, MUSCULOSKELETAL: no muscle wasting NEURO: Awake; no lateralizing signs. SKIN: No Rash PSYCH; Flat affect Assessment & Plan Assessment/Plan (1) Metabolic acidosis: (2) Dysphagia: (3) Bilateral pleural effusion: (4) Anemia: (5) Hyperkalemia: PLAN: Plan Patient is a 69-year-old gentleman resident as an extended care facility who was brought to the emergency department after he was found to have abnormal labs. Potassium was reported to be 6.9 sent to the ED and subsequently admitted to regular nursing floor for further management 1. Hyperkalemia ? Secondary to a combination of acidosis as well as patient impaired kidney function. Patient has been admitted to monitored bed for continuous monitoring, treatment initiated per protocol with Kayexalate calcium gluconate insulin as well as dextrose. Response to therapy being monitored with serial potassium levels BMP every 4. Consult was placed to nephrology Case discussed with Dr. Valero. Nephrology recommended continuation of patient diuretic therapy with subsequent dose adjustment and discontinuation of sodium bicarb ? 10/19/2024;Patient did receive additional Kayexalate in the evening given persistently high potassium levels. Potassium down to 5.2 as of this a.m 2. Bilateral pleural effusion ? Consult was placed to interventional radiology for patient to undergo ultrasound-guided thoracocentesis with fluid analysis ordered ? 10/2024; patient underwent ultrasound-guided thoracocentesis the day prior fluid analysis reviewed 3. Anemia ? Secondary to chronic disorder monitoring H&H and transfuse if patient becomes symptomatic or hemoglobin falls below 7 4. Chronic kidney disease stage III ?Consult placed to nephrology 5. History of cardiac arrest following profound bradycardia ? Subsequent 2D echo demonstrated EF of 35% 6. BPH with lower urinary obstructive symptoms - Patient treated with tamsulosin 7. Hypertension ? Blood pressure controlled, home medications continued with dose adjustment as needed 8. Peripheral neuropathy ? Patient is on gabapentin 9. Dysphagia status post PEG tube placement ? Consult placed to dietitian for orders regarding patient tube feeding 10. Diabetes mellitus type II -Placed on Accu-Cheks a.c. and at bedtime and covered with sliding scale insulin 11. DVT prophylaxis ? Subcu heparin Time spent in the patient's overall evaluation,decision-making process, review of diagnostic data, adjustment of management, discussion with other providers, nursing nursing and ancillary staff involved in patient's care documentation, 40 Minutes Charges/Coding Visit Charges Inpatient E&M: 09688 Subs Hosp L2
--- NOTE | 2024-10-19 08:59 | PCM.PN.BLA ---
Progress Note K is better at 5.2. repeat SPS today. Cr higher. cut back lasix. significantly elevated protein gap, urine PCR 2.4 gm. will send SPEP and kappa/lambda light chain assay.
[2024-10-19] MEDS: Sodium Polystyrene Sulfonate 15 GM/60 ML UDC PO (11:01)
[2024-10-19 12:25] LABS: Bedside Glucose 127 mg/dL (74-106)
[2024-10-19] MEDS: Jevity 1.5 1,000 ML 55 ML GT (13:33)
[2024-10-19] MEDS: Tamsulosin HCl 0.4 MG Capsule PO (13:34)
[2024-10-19] MEDS: Insulin Lispro 100 UNIT/ML INSULN.PEN SC ×2 (17:48→23:12)
[2024-10-19 18:09] LABS: Bedside Glucose 152 mg/dL (74-106)
--- NOTE | 2024-10-19 18:22 | PN.RENAL_ITS ---
Objective Data Objective Data Vital Signs: Vital Signs Temp Pulse Resp BP Pulse Ox O2 Del Method O2 Flow Rate 98.0 F 70 18 121/62 H 97 Room Air 2 10/19/24 15:00 10/19/24 15:04 10/19/24 15:04 10/19/24 15:00 10/19/24 15:00 10/19/24 15:00 10/18/24 20:30 Oxygen Flow Rate (L/min) 2 Oxygen Delivery Method Room Air Weight: 55.2 kg Body Mass Index (BMI) 19.1 Intake & Output: Intake and Output for Last 24 Hours 10/17/24 10/18/24 10/19/24 23:59 23:59 23:59 Intake Total 2028. / 1110 / 1110 Output Total 2650 / 2650 500 / 500 Balance -620.75 / -620.75 610 / 610 Lab / Micro Data 10/19/24 06:22 10/19/24 06:22 Labs: Laboratory Results - last 24 hr 10/18/24 20:20: Sodium 139, Potassium 5.4 H, Chloride 110 H, Carbon Dioxide 23.0, Anion Gap 6, BUN 61 H, Creatinine 1.85 H, Estim Creat Clear Calc 31.40, E st GFR (MDRD) Af Amer 47 L, Est GFR (MDRD) Non-Af 39 L, BUN/Creatinine Ratio 33.0 H, Glucose 124 H, Calcium 8.6 10/18/24 23:18: POC Glucose 163 H 10/19/24 06:12: POC Glucose 143 H 10/19/24 06:22: WBC 5.7, RBC 2.95 L, Hgb 8.2 L, Hct 26.1 L, MCV 88.5, MCH 27.8, MCHC 31.4 L, RDW Std Deviation 49.9 H, RDW Coeff of Agus 15.3 H, Plt Count 195, MPV 10.5, Immature Gran % (Auto) 0.200, Neut % (Auto) 56.3, Lymph % (Auto) 21.4, [place] % (Auto) 8.5, Eos % (Auto) 12.7 H, Baso % (Auto) 0.9, Absolute Neuts (auto) 3.2, Absolute Lymphs (auto) 1.23, Nucleated RBC % 0, Sodium 138, Potassium 5.2 H , Chloride 108 H, Carbon Dioxide 24.0, Anion Gap 6, BUN 66 H, Creatinine 1.95 H, Estim Creat Clear Calc 27.91, Est GFR (MDRD) Af Amer 44 L, Est GFR (MDRD) Non-Af 36 L, BUN/Creatinine Ratio 33.8 H, Glucose 164 H, Calcium 7.9 L, Phosphorus 6.6 H, Magnesium 2.3 10/19/24 12:05: POC Glucose 127 H 10/19/24 17:30: POC Glucose 152 H Micro: Microbiology 10/18/24 08:16 Fluid - Pleural (Lung) Gram Stain - Final 10/18/24 08:16 Fluid - Pleural (Lung) Body Fluid Culture - Preliminary No growth-Final to follow 10/18/24 02:28 Stool Stool Occult Blood (LOU) - Final 10/18/24 00:42 Mucosa - Nasopharyngeal SARS-CoV-2, Influenza & RSV (PCR) - Final Physical Exam Narrative no obvious distress no pallor no icterus no JVD s1s2 no murmurs lungs clear abdomen soft no organomegaly no edema no cyanosis Assessment & Plan Assessment/Plan (1) Hyperkalemia: PLAN: During previous hospitalization, his potassium was normal. Reviewed discharge summary, it seems he was not sent on any potassium supplements. Creatinine is close to baseline. No significant hyperglycemia. Bicarbonate 22. Will check a CPK level. Currently not on any medication that can cause hyperkalemia. CT abdomen without any hydronephrosis. For treatment he has received calcium, insulin, dextrose, Kayexalate this morning. He is also received 1 dose of Kayexalate yesterday. He did have a decent bowel movement this morning as per my discussion with staff. Will repeat labs after repeat dose of Kayexalate. I will also increase the dose of Lasix to twice a day. Bicarbonate will be minimal benefit since serum bicarbonate is normal. PLAN: Plan Impression/Plan: The patient is a 69-year-old male with past history of type 2 diabetes mellitus, hypertension, HFrEF (EF 35%), hypothyroidism, and osteoarthritis. The patient was recently admitted to the hospital between 09/16/2024 until 10/02/2024 with bradycardia and PEA arrest. The patient was also found to have decompensated systolic heart failure along with acute hypoxic respiratory failure requiring ventilation. Patient has clinically improved and was extubated on 09/23/2024. Patient presented back to the hospital on 10/17/[address] [facility] because he was found to have hyperkalemia with potassium level of 6.9 mmol/L on outpatient laboratory test at [facility]. Nephrology is following for acute kidney injury and hyperkalemia. Acute kidney injury on probable chronic kidney disease. Baseline renal function is unknown. Patient presented to hospital with serum creatinine of 1.60 mg/dL on 09/16/2024. I suspect JAMES secondary to ischemic ATN related to decreased effective blood volume related to PEA arrest and heart failure. During last admission, serum creatinine peaked at 2.35 mg/dL on 09/21/2024. Renal function improved with supportive care and treatment of heart failure. The patient never required hemodialysis. Serum creatinine has decreased from 2.35 mg/dL on 09/21/2024 down to 1.60 mg/dL on 10/02/2024 when he was discharged. On presentation to the hospital, serum creatinine was close to usual baseline at 1.57 mg/dL on 10/17/2024. Serum creatinine remained stable on 10/18/2024 and 1.52 mg/dL. However, serum creatinine has increased over the last 24 hours up to 1.95 mg/dL today on 10/19/2024. There was no periods of prolonged hypotension or hemodynamic instability on my review of EHR. Patient has been on furosemide at 40 mg daily. Hyperkalemia. Potassium level was as high as 6.8 mmol/L on 10/18/2024. The patient was not severely hyperglycemic on presentation. Bicarbonate level was not low on metabolic panel. Difficult to make diagnosis of RTA because of abnormal renal function. The patient was treated with temporizing measures with insulin?D50 on 10/18/2024. He was also given sodium polystyrene sulfonate as well. Potassium level has improved today to 5.2 mmol/L. We should check with dietitian if there is alternative to Jevity for tube feed with less potassium content.
--- NOTE | 2024-10-19 18:22 | PCM.PN.REN ---
Subjective Subjective Following for hyperkalemia as well as JAMES on CKD. Patient denies current chest pain. However, he had transient sharp chest pain which lasted less than 1 minute earlier today. Patient has occasional nausea and vomiting. Dyspnea has improved. Appetite remains poor. Objective Data Objective Data Vital Signs: Vital Signs Temp Pulse Resp BP Pulse Ox O2 Del Method O2 Flow Rate 98.0 F 70 18 121/62 H 97 Room Air 2 10/19/24 15:00 10/19/24 15:04 10/19/24 15:10/19/24 15:00 10/19/24 15:10/19/24 15:00 10/18/24 20:30 Oxygen Flow Rate (L/min) 2 Oxygen Delivery Method Room Air Weight: 55.2 kg Body Mass Index (BMI) 19.1 Intake & Output: Intake and Output for Last 24 Hours 10/17/24 10/18/24 10/19/24 23:59 23:59 23:59 Intake Total 2028.25 / 2028. 1110 / 1110 Output Total 2650 / 2650 500 / 500 Balance -620.75 / -620.75 610 / 610 Lab / Micro Data 10/19/24 06:22 10/19/24 06:22 Labs: Laboratory Results - last 24 hr 10/18/24 20:20: Sodium 139, Potassium 5.4 H, Chloride 110 H, Carbon Dioxide 23.0, Anion Gap 6, BUN 61 H, Creatinine 1.85 H, Estim Creat Clear Calc 31.40, Est GFR (MDRD) Af Amer 47 L, Est GFR (MDRD) Non-Af 39 L, BUN/Creatinine Ratio 33.0 H, Glucose 124 H, Calcium 8.6 10/18/24 23:18: POC Glucose 163 H 10/19/24 06:12: POC Glucose 143 H 10/19/24 06:22: WBC 5.7, RBC 2.95 L, Hgb 8.2 L, Hct 26.1 L, MCV 88.5, MCH 27.8, MCHC 31.4 L, RDW Std Deviation 49.9 H, RDW Coeff of Agus 15.3 H, Plt Count 195, MPV 10.5, Immature Gran % (Auto) 0.200, Neut % (Auto) 56.3, Lymph % (Auto) 21.4, Kay % (Auto) 8.5, Eos % (Auto) 12.7 H, Baso % (Auto) 0.9, Absolute Neuts (auto) 3.2, Absolute Lymphs (auto) 1.23, Nucleated RBC % 0, Sodium 138, Potassium 5.2 H, Chloride 108 H, Carbon Dioxide 24.0, Anion Gap 6, BUN 66 H, Creatinine 1.95 H, Estim Creat Clear Calc 27.91, Est GFR (MDRD) Af Amer 44 L, Est GFR (MDRD) Non-Af 36 L, BUN/Creatinine Ratio 33.8 H, Glucose 164 H, Calcium 7.9 L, Phosphorus 6.6 H, Magnesium 2.3 10/19/24 12:05: POC Glucose 127 H 10/19/24 17:30: POC Glucose 152 H Micro: Microbiology 10/18/24 08:16 Fluid - Pleural (Lung) Gram Stain - Final 10/18/24 08:16 Fluid - Pleural (Lung) Body Fluid Culture - Preliminary No growth-Final to follow 10/18/24 02:28 Stool Stool Occult Blood (LOU) - Final 10/18/24 00:42 Mucosa - Nasopharyngeal SARS-CoV-2, Influenza & RSV (PCR) - Final Physical Exam Narrative no obvious distress no pallor no icterus no JVD s1s2 no murmurs lungs clear abdomen soft no organomegaly no edema no cyanosis Assessment & Plan Assessment/Plan (1) Hyperkalemia: (2) JAMES (acute kidney injury): (3) Chronic kidney disease, stage 3b: PLAN: Plan Impression/Plan: The patient is a 69-year-old male with past history of type 2 diabetes mellitus, hypertension, HFrEF (EF 35%), hypothyroidism, and osteoarthritis. The patient was recently admitted to the hospital between 09/16/2024 until 10/02/2024 with bradycardia and PEA arrest. The patient was also found to have decompensated systolic heart failure along with acute hypoxic respiratory failure requiring ventilation. Patient has clinically improved and was extubated on 09/23/2024. Patient presented back to the hospital on 10/17/2024 from [facility] because he was found to have hyperkalemia with potassium level of 6.9 mmol/L on outpatient laboratory test at [facility]. Nephrology is following for acute kidney injury and hyperkalemia. Hyperkalemia. Potassium level was as high as 6.8 mmol/L on 10/18/2024. The patient was not severely hyperglycemic on presentation. Bicarbonate level was not low on metabolic panel. Unfortunately, we cannot make diagnosis of RTA because of abnormal renal function. The patient was treated with temporizing measures with insulin?D50 on 10/18/2024. He was also given sodium polystyrene sulfonate as well. Potassium level has improved today to 5.2 mmol/L. At this point, I would suspect that the most likely cause for hyperkalemia would be due to CKD. We should check with dietitian if there is alternative to Jevity for tube feed with less potassium content that will fulfill his dietary need. Jevity has higher potassium content in most tube feed. Acute kidney injury on probable chronic kidney disease. Baseline renal function prior to his admission on 09/16/2024 is unknown. Patient presented to hospital with serum creatinine of 1.60 mg/dL on 09/16/2024. Patient tells me that he has CKD and has been seen by nephrology at the [facility] in the past. I suspect JAMES secondary to ischemic ATN related to decreased effective blood volume related to PEA arrest and heart failure when he was last admitted to the hospital. During last admission, serum creatinine peaked at 2.69 mg/dL on 09/28/2024. Renal function improved with supportive care and treatment of heart failure. The patient never required hemodialysis. Serum creatinine was down to 1.60 mg/dL on 10/02/2024 when he was discharged. On presentation to the hospital for recurrent admission, serum creatinine was close to usual baseline at 1.57 mg/dL on 10/17/2024. Serum creatinine remained stable on 10/18/2024 and 1.52 mg/dL. However, serum creatinine has increased over the last 24 hours up to 1.95 mg/dL today on 10/19/2024. There was no periods of prolonged hypotension or hemodynamic instability on my review of EHR. Patient has been on furosemide at 40 mg daily. I suspect that the rise in serum creatinine may be related to diuresis in the setting of poor oral intake. Chest x-ray from 10/18/2024 showed small bilateral pleural effusion on my read. There was no significant pulmonary edema. Therefore, I we will hold furosemide tomorrow and reassess again on 10/21/2024, to see if you will need further diuresis
[2024-10-19] MEDS: 0.9% Saline Lock 10 ML Syringe IV (22:39)
[2024-10-19 23:40] LABS: Bedside Glucose 170 mg/dL (74-106)
[2024-10-20] VITALS (15 sets, daily range): BP systolic 120–150; BP diastolic 57–67; PULSE 58–70; RESP 16–20; TEMP 36.6–37.4; O2SAT 93–99; BMI 20.2
[2024-10-20] MEDS: Ipratropium/Albuterol Sulfate 3 ML AMPUL.NEB INHALATION ×5 (01:01→20:33)
--- NOTE | 2024-10-20 02:01 | EKG12_ITS ---
Test Reason : CP Blood Pressure : */* mmHG Vent. Rate : 63 BPM Atrial Rate : 63 BPM P-R Int : 160 ms QRS Dur : 94 ms QT Int : 450 ms P-R-T Axes : 53 4 114 degrees QTcB Int : 460 ms Normal sinus rhythm Incomplete right bundle branch block Cannot rule out Inferior infarct , age undetermined Abnormal ECG When compared with ECG of 17-Oct-2024 23:41, MANUAL COMPARISON REQUIRED DATA IS UNCONFIRMED Confirmed by ARUNA MARION, AMIE ([id number]), restaurant expeditor DIANA DOVER ([id number]) on 10/21/2024 9:59:28 AM Referred By: Confirmed By: AMIE VALDOVINOS MD
[2024-10-20 05:28] LABS: Absolute Lymphocyte Count 1.27 X10^3/uL (0.83-4.51); Absolute Neutrophil Count 3.7 X10^3/uL (2.0-7.7); Basophil# 0.05 X10^3/uL; Basophil% 0.8 % (0-1); Eosinophil# 0.86 X10^3/uL; Eosinophils% 13.1 % (0-5); Hematocrit 25.4 % (40-54); Lymphocyte # 1.27 X10^3/ul (0.83-4.51); Lymphocyte % 19.4 % (19-41); Mean Corp Hgb Conc 31.5 g/dL (32-36); Mean Corpuscular Hgb 27.7 pg (27.0-32.0); Mean Corpuscular Volume 87.9 fL (80-94); Mean Platelet Vol. 10.1 fl (6.2-12.0); Monocyte% 9.2 % (0-10); NRBC Flagged by Analyzer 0 % (0-5); Neutrophil # 3.73 X10^3/uL (2.7-7.7); Platelet Count 185 K/mm3 (150-450); RBC Distribution Width CV 15.1 % (11.6-14.6); RBC Distribution Width SD 48.8 fl (35.1-43.9); Red Blood Count 2.89 M/mm3 (4.6-6.2); White Blood Count 6.5 K/mm3 (4.4-11.0)
[2024-10-20] MEDS: Acetaminophen 500 MG Tablet 1000 MG PO ×3 (05:34→22:35)
[2024-10-20] MEDS: hydrALAZINE 10 MG Tablet GT ×3 (05:34→22:35)
[2024-10-20 05:51] LABS: Anion Gap 3 (5-15); BUN 84 mg/dL (7-18); BUN/Creat Ratio 43.3 RATIO (10-20); Calcium,Total 7.8 mg/dL (8.5-10.1); Chloride 103 mmol/L (98-107); Creatinine, Serum 1.94 mg/dL (0.70-1.30); EST Glomerular Filtration Rate 37 mL/min (>60); Est Glom Filt Rate - Afr Amer 44 mL/min (>60); Estimated Creatinine Clearance 29.89 ml/min; Glucose 145 mg/dL (74-106); Potassium 5.4 mmol/L (3.5-5.1); Sodium Level 134 mmol/L (136-145)
[2024-10-20 06:00] LABS: Troponin-I HS 42 pg/mL (3.0-78.0)
[2024-10-20 06:37] LABS: CPK Total, Creatine Kinase 134 U/L (39-308)
[2024-10-20 06:57] LABS: Bedside Glucose 138 mg/dL (74-106)
[2024-10-20 07:32] LABS: Troponin-I HS 41 pg/mL (3.0-78.0)
[2024-10-20] MEDS: Aspirin E.C. 81 MG Tablet PO (10:25)
[2024-10-20] MEDS: Juven (unflavored) Packet 1 PACKET PO ×2 (10:25→17:48)
[2024-10-20] MEDS: Isosorbide Mononitrate 30 MG Tablet PO (10:26)
[2024-10-20] MEDS: Furosemide 40 MG Tablet PO (10:26)
[2024-10-20] MEDS: Heparin Injection (Vial) 5,000 UNIT/ML VIAL 5000 UNIT SC ×2 (10:27→22:33)
[2024-10-20] MEDS: Gabapentin 600 MG Tablet PO ×2 (10:31→22:39)
[2024-10-20] MEDS: Jevity 1.5 1,000 ML 55 ML GT (10:51)
--- NOTE | 2024-10-20 11:05 | PCM.PN.HOSP ---
Reason for Visit Reason for Visit: Diagnoses Anemia, unspecified (10/18/24) Acidosis, unspecified (10/18/24) Hyperkalemia (10/18/24) Pleural effusion, not elsewhere classified (10/18/24) Acute kidney failure, unspecified (10/18/24) Chronic kidney disease, stage 3b (10/18/24) Dysphagia, unspecified (10/18/24) Subjective Subjective Patient seen, potassium level still remains elevated. Consult has been placed to dietitian to recommend different tube feed with relatively low potassium content Objective Data Objective Data Vital Signs: Vital Signs Temp Pulse Resp BP Pulse Ox O2 Del Method O2 Flow Rate 97.8 F 59 L 16 135/57 H 94 Nasal Cannula 1 10/20/24 08:44 10/20/24 08:44 10/20/24 08:44 10/20/24 08:44 10/20/24 08:44 10/20/24 08:54 10/20/24 08:54 Oxygen Flow Rate (L/min) 1 Oxygen Delivery Method Nasal Cannula Weight: 58.8 kg Body Mass Index (BMI) 20.2 Intake & Output: Intake and Output for Last 24 Hours 10/18/24 10/19/24 10/20/24 23:59 23:59 23:59 Intake Total 2028. / 2028. 1280 / 1280 1030 / 1030 Output Total 2650 / 2650 700 / 700 450 / 450 Balance -620.75 / -620.75 580 / 580 580 / 580 Lab / Micro Data 10/20/24 05:16 10/20/24 05:16 Labs: Laboratory Results - last 24 hr 10/19/24 12:05: POC Glucose 127 H 10/19/24 17:30: POC Glucose 152 H 10/19/24 23:10: POC Glucose 170 H 10/20/24 05:16: WBC 6.5, RBC 2.89 L, Hgb 8.0 L, Hct 25.4 L, MCV 87.9, MCH 27.7, MCHC 31.5 L, RDW Std Deviation 48.8 H, RDW Coeff of Agus 15.1 H, Plt Count 185, MPV 10.1, Immature Gran % (Auto) 0.500, Neut % (Auto) 57.0, Lymph % (Auto) 19.4, [place] % (Auto) 9.2, Eos % (Auto) 13.1 H, Baso % (Auto) 0.8, Absolute Neuts (auto) 3.7, Absolute Lymphs (auto) 1.27, Nucleated RBC % 0, Sodium 134 L, Potassium 5.4 H, Chloride 103, Carbon Dioxide 28.0, Anion Gap 3 L, BUN 84 H, Creatinine 1.94 H, Estim Creat Clear Calc 29.89, Est GFR (MDRD) Af Amer 44 L, Est GFR (MDRD) Non-Af 37 L, BUN/Creatinine Ratio 43.3 H, Glucose 145 H, Calcium 7.8 L, Total Creatine Kinase 134, Troponin I High Sens 42 10/20/24 05:32: POC Glucose 138 H 10/20/24 07:10: Troponin I High Sens 41 Micro: Microbiology 10/18/24 08:16 Fluid - Pleural (Lung) Gram Stain - Final 10/18/24 08:16 Fluid - Pleural (Lung) Body Fluid Culture - Preliminary No growth-Final to follow 10/18/24 02:28 Stool Stool Occult Blood (LOU) - Final 10/18/24 00:42 Mucosa - Nasopharyngeal SARS-CoV-2, Influenza & RSV (PCR) - Final Physical Exam Narrative GENERAL: cooperative but frail looking HEENT: Atraumatic; normocephalic EYES; Anicteric, Normal Conjunctiva NECK; supple, normal thyroid, RESPIRATORY: Diminished to auscultation CARDIOVASCULAR: Regular S1 S2, GI: soft, normoactive bowel sounds, : No Renal angle tenderness; EXTREMITIES: No edema, no clubbing, MUSCULOSKELETAL: no muscle wasting NEURO: Awake; no lateralizing signs. SKIN: No Rash PSYCH; Flat affect Assessment & Plan Assessment/Plan (1) Metabolic acidosis: (2) Dysphagia: (3) Bilateral pleural effusion: (4) Anemia: (5) Hyperkalemia: PLAN: Plan Patient is a 69-year-old gentleman resident as an extended care facility who was brought to the emergency department after he was found to have abnormal labs. Potassium was reported to be 6.9 sent to the ED and subsequently admitted to regular nursing floor for further management 1. Hyperkalemia ? Secondary to a combination of acidosis as well as patient impaired kidney function. Patient has been admitted to monitored bed for continuous monitoring, treatment initiated per protocol with Kayexalate calcium gluconate insulin as well as dextrose. Response to therapy being monitored with serial potassium levels BMP every 4. Consult was placed to nephrology Case discussed with Dr. Valero. Nephrology recommended continuation of patient diuretic therapy with subsequent dose adjustment and discontinuation of sodium bicarb ? 10/19/2024;Patient did receive additional Kayexalate in the evening given persistently high potassium levels. Potassium down to 5.2 as of this a.m ?10/20/2024 7 patient seen, potassium level still remains elevated. Consult has been placed to dietitian to recommend different tube feed with relatively low potassium content 2. Bilateral pleural effusion ? Consult was placed to interventional radiology for patient to undergo ultrasound-guided thoracocentesis with fluid analysis ordered ? 10/2024; patient underwent ultrasound-guided thoracocentesis the day prior fluid analysis reviewed 3. Anemia ? Secondary to chronic disorder monitoring H&H and transfuse if patient becomes symptomatic or hemoglobin falls below 7 4. Chronic kidney disease stage III ?Consult placed to nephrology 5. History of cardiac arrest following profound bradycardia ? Subsequent 2D echo demonstrated EF of 35% 6. BPH with lower urinary obstructive symptoms - Patient treated with tamsulosin 7. Hypertension ? Blood pressure controlled, home medications continued with dose adjustment as needed 8. Peripheral neuropathy ? Patient is on gabapentin 9. Dysphagia status post PEG tube placement ? Consult placed to dietitian for orders regarding patient tube feeding 10. Diabetes mellitus type II -Placed on Accu-Cheks a.c. and at bedtime and covered with sliding scale insulin 11. DVT prophylaxis ? Subcu heparin Time spent in the patient's overall evaluation,decision-making process, review of diagnostic data, adjustment of management, discussion with other providers, nursing nursing and ancillary staff involved in patient's care documentation, 36 minutes Charges/Coding Visit Charges Inpatient E&M: 91353 Subs Hosp L2
[2024-10-20 11:19] LABS: Troponin-I HS 44 pg/mL (3.0-78.0)
[2024-10-20] MEDS: Pantoprazole Sodium 40 MG in 0.9% Normal Saline (100mL MB+) 100 ML 330 MG IV ×2 (11:22→22:45)
[2024-10-20] MEDS: oxyCODONE 5 MG Tablet PO (11:24)
[2024-10-20 12:45] LABS: Bedside Glucose 99 mg/dL (74-106)
[2024-10-20 16:50] LABS: Bedside Glucose 132 mg/dL (74-106)
[2024-10-20] MEDS: Tamsulosin HCl 0.4 MG Capsule PO (17:48)
[2024-10-20] MEDS: Metoprolol Tartrate 25 MG Tablet GT (22:36)
[2024-10-20] MEDS: Insulin Lispro 100 UNIT/ML INSULN.PEN SC (22:43)
[2024-10-20 23:33] LABS: Bedside Glucose 190 mg/dL (74-106)
[2024-10-21] VITALS (15 sets, daily range): BP systolic 133–143; BP diastolic 57–64; PULSE 57–68; RESP 16–22; TEMP 36.6–37.1; O2SAT 94–98; BMI 20.5
[2024-10-21] MEDS: Ipratropium/Albuterol Sulfate 3 ML AMPUL.NEB INHALATION ×6 (01:20→23:40)
[2024-10-21] MEDS: hydrALAZINE 10 MG Tablet GT ×3 (05:55→21:41)
[2024-10-21] MEDS: Acetaminophen 500 MG Tablet 1000 MG PO ×3 (05:56→21:41)
[2024-10-21 06:00] LABS: Absolute Lymphocyte Count 1.12 X10^3/uL (0.83-4.51); Absolute Neutrophil Count 4.5 X10^3/uL (2.0-7.7); Basophil# 0.05 X10^3/uL; Basophil% 0.7 % (0-1); Eosinophil# 0.94 X10^3/uL; Eosinophils% 12.8 % (0-5); Hematocrit 25.9 % (40-54); Hemoglobin 8.1 g/dL (13.0-16.5); Lymphocyte # 1.12 X10^3/ul (0.83-4.51); Lymphocyte % 15.3 % (19-41); Mean Corp Hgb Conc 31.3 g/dL (32-36); Mean Corpuscular Hgb 27.7 pg (27.0-32.0); Mean Corpuscular Volume 88.7 fL (80-94); Mean Platelet Vol. 10.3 fl (6.2-12.0); Monocyte# 0.65 X10^3/uL; Monocyte% 8.9 % (0-10); NRBC Flagged by Analyzer 0 % (0-5); Neutrophil # 4.53 X10^3/uL (2.7-7.7); Neutrophil % 61.9 % (47-70); Platelet Count 187 K/mm3 (150-450); RBC Distribution Width CV 14.9 % (11.6-14.6); RBC Distribution Width SD 48.1 fl (35.1-43.9); Red Blood Count 2.92 M/mm3 (4.6-6.2); White Blood Count 7.3 K/mm3 (4.4-11.0)
[2024-10-21 06:24] LABS: Bedside Glucose 143 mg/dL (74-106)
[2024-10-21 06:25] LABS: Anion Gap 2 (5-15); BUN 86 mg/dL (7-18); Calcium,Total 8.2 mg/dL (8.5-10.1); Chloride 105 mmol/L (98-107); Creatinine, Serum 1.79 mg/dL (0.70-1.30); EST Glomerular Filtration Rate 40 mL/min (>60); Est Glom Filt Rate - Afr Amer 49 mL/min (>60); Estimated Creatinine Clearance 32.39 ml/min; Glucose 136 mg/dL (74-106); Potassium 5.4 mmol/L (3.5-5.1); Sodium Level 134 mmol/L (136-145)
--- NOTE | 2024-10-21 08:20 | PN.HOSP_ITS ---
Reason for Visit Reason for Visit: Diagnoses Anemia, unspecified (10/18/24) Acidosis, unspecified (10/18/24) Hyperkalemia (10/18/24) Pleural effusion, not elsewhere classified (10/18/24) Acute kidney failure, unspecified (10/18/24) Chronic kidney disease, stage 3b (10/18/24) Dysphagia, unspecified (10/18/24) Subjective Subjective Patient seen potassium still remains elevated at 5.4. Consult has been placed to dietitian to recommend an alternative to Jevity for tube feeding Objective Data Objective Data Vital Signs: Vital Signs Temp Pulse Resp BP Pulse Ox O2 Del Method O2 Flow Rate 98.6 F 59 L 18 143/61 H 97 Nasal Cannula 1 10/21/24 05:52 10/21/24 07:42 10/21/24 07:42 10/21/24 05:55 10/21/24 05:52 10/21/24 08:14 10/21/24 08:14 Oxygen Flow Rate (L/min) 1 Oxygen Delivery Method Nasal Cannula Weight: 59.5 kg Body Mass Index (BMI) 20.5 Intake & Output: Intake and Output for Last 24 Hours 10/19/24 10/20/24 10/21/24 23:59 23:59 23:59 Intake Total 1280 / 1280 1825 / 1825 2108.25 / 2108.25 Output Total 700 / 700 1300 / 1300 600 / 600 Balance 580 / 580 525 / 525 1508.25 / 1508.25 Lab / Micro Data 10/21/24 05:25 10/21/24 05:25 Labs: Laboratory Results - last 24 hr 10/20/24 11:00: Troponin I High Sens 44 10/20/24 12:21: POC Glucose 99 10/20/24 16:27: POC Glucose 132 H 10/20/24 22:41: POC Glucose 190 H 10/21/24 05:25: WBC 7.3, RBC 2.92 L, Hgb 8.1 L, Hct 25.9 L, MCV 88.7, MCH 27.7, MCHC 31.3 L, RDW Std Deviation 48.1 H, RDW Coeff of Agus 14.9 H, Plt Count 187, MPV 10.3, Immature Gran % (Auto) 0.400, Neut % (Auto) 61.9, Lymph % (Auto) 15.3 L, [place] % (Auto) 8.9, Eos % (Auto) 12.8 H, Baso % (Auto) 0.7, Absolute Neuts (auto) 4.5, Absolute Lymphs (auto) 1.12, Nucleated RBC % 0, Sodium 134 L, P otassium 5.4 H, Chloride 105, Carbon Dioxide 27.0, Anion Gap 2 L, BUN 86 H, C reatinine 1.79 H, Estim Creat Clear Calc 32.39, Est GFR (MDRD) Af Amer 49 L, Est GFR (MDRD) Non-Af 40 L, BUN/Creatinine Ratio 48.0 H, Glucose 136 H, Calcium 8.2 L 10/21/24 05:51: POC Glucose 143 H Micro: Microbiology 10/18/24 08:16 Fluid - Pleural (Lung) Gram Stain - Final 10/18/24 08:16 Fluid - Pleural (Lung) Body Fluid Culture - Preliminary No growth-Final to follow 10/18/24 08:16 Fluid - Pleural (Lung) Anaerobic Culture - Preliminary No growth in 48 hours. 10/18/24 02:28 Stool Stool Occult Blood (LOU) - Final 10/18/24 00:42 Mucosa - Nasopharyngeal SARS-CoV-2, Influenza & RSV (PCR) - Final Physical Exam Narrative GENERAL: cooperative but frail looking HEENT: Atraumatic; normocephalic EYES; Anicteric, Normal Conjunctiva NECK; supple, normal thyroid, RESPIRATORY: Diminished to auscultation CARDIOVASCULAR: Regular S1 S2, GI: soft, normoactive bowel sounds, : No Renal angle tenderness; EXTREMITIES: No edema, no clubbing, MUSCULOSKELETAL: no muscle wasting NEURO: Awake; no lateralizing signs. SKIN: No Rash PSYCH; Flat affect Assessment & Plan Assessment/Plan (1) Metabolic acidosis: (2) Dysphagia: (3) Bilateral pleural effusion: (4) Anemia: (5) Hyperkalemia: PLAN: Plan Patient is a 69-year-old gentleman resident as an extended care facility who was brought to the emergency department after he was found to have abnormal labs. Potassium was reported to be 6.9 sent to the ED and subsequently admitted to regular nursing floor for further management 1. Hyperkalemia ? Secondary to a combination of acidosis as well as patient impaired kidney function. Patient has been admitted to monitored bed for continuous monitoring, treatment initiated per protocol with Kayexalate calcium gluconate insulin as well as dextrose. Response to therapy being monitored with serial potassium levels BMP every 4. Consult was placed to nephrology Case discussed with Dr. Valero. Nephrology recommended continuation of patient diuretic therapy with subsequent dose adjustment and discontinuation of sodium bicarb ? 10/19/2024;Patient did receive additional Kayexalate in the evening given persistently high potassium levels. Potassium down to 5.2 as of this a.m ?10/20/2024 patient seen, potassium level still remains elevated. Consult has been placed to dietitian to recommend different tube feed with relatively low potassium content ? 10/21/2024;Patient seen potassium still remains elevated at 5.4. Consult has been placed to dietitian to recommend an alternative to Jevity for tube feeding 2. Bilateral pleural effusion ? Consult was placed to interventional radiology for patient to undergo ultrasound-guided thoracocentesis with fluid analysis ordered ? 10/2024; patient underwent ultrasound-guided thoracocentesis the day prior fluid analysis reviewed 3. Anemia ? Secondary to chronic disorder monitoring H&H and transfuse if patient becomes symptomatic or hemoglobin falls below 7 4. Chronic kidney disease stage III ?Consult placed to nephrology 5. History of cardiac arrest following profound bradycardia ? Subsequent 2D echo demonstrated EF of 35% 6. BPH with lower urinary obstructive symptoms - Patient treated with tamsulosin 7. Hypertension ? Blood pressure controlled, home medications continued with dose adjustment as needed 8. Peripheral neuropathy ? Patient is on gabapentin 9. Dysphagia status post PEG tube placement ? Consult placed to dietitian for orders regarding patient tube feeding 10. Diabetes mellitus type II -Placed on Accu-Cheks a.c. and at bedtime and covered with sliding scale insulin 11. DVT prophylaxis ? Subcu heparin Time spent in the patient's overall evaluation,decision-making process, review of diagnostic data, adjustment of management, discussion with other providers, nursing nursing and ancillary staff involved in patient's care documentation, 36 minutes Charges/Coding Visit Charges Inpatient E&M: 49265 Subs Hosp L2
[2024-10-21] MEDS: Aspirin E.C. 81 MG Tablet PO (09:04)
[2024-10-21] MEDS: Juven (unflavored) Packet 1 PACKET PO ×2 (09:04→18:20)
[2024-10-21] MEDS: Heparin Injection (Vial) 5,000 UNIT/ML VIAL 5000 UNIT SC ×2 (09:05→21:39)
[2024-10-21] MEDS: Isosorbide Mononitrate 30 MG Tablet PO (09:05)
[2024-10-21] MEDS: Furosemide 40 MG Tablet PO (09:08)
[2024-10-21] MEDS: Metoprolol Tartrate 25 MG Tablet GT ×2 (09:09→21:39)
[2024-10-21] MEDS: Gabapentin 600 MG Tablet PO ×2 (09:19→21:40)
--- NOTE | 2024-10-21 09:30 | CASEMGMT ---
Discharge Planning Updates sent to [facility] with note to submit for precert. Valorie Calloway DC Planning Asst.
[2024-10-21] MEDS: Pantoprazole Sodium 40 MG in 0.9% Normal Saline (100mL MB+) 100 ML 330 MG IV ×2 (09:32→21:42)
[2024-10-21] MEDS: 0.9% Saline Lock 10 ML Syringe IV (09:35)
--- NOTE | 2024-10-21 10:44 | CASEMGMT ---
[facility] has obtained auth to admit. Valorie Calloway DC Planning Asst.
[2024-10-21 11:57] LABS: Bedside Glucose 104 mg/dL (74-106)
--- NOTE | 2024-10-21 12:38 | SP.MBSS_ITS ---
Modified Barium Swallow Patient Information Study Date: 10/21/24 Study Time: 12:05 Direct Billable Minutes: 118 Total Minutes procedure & reportin Diagnosis: Dysphagia R13.10; Hyperkalemia E87.5 Referring Physician: Juice Moeller Reason for Referral: Objectively assess swallow function, assess risk for aspiration, and determine recommendations for least restrictive diet textures and compensatory strategies to improve safety of swallow. Medical History: PMH: HTN; history of CHF, history of DM-2; currently not on treatment, former tobacco abuse, history of COVID-19 (2021), history of thumb surgery, osteoarthritis, dysphagia, pleural effusion, CKD stage 3b, anemia, hyperkalemia, metabolic acidosis (See EMR for full PMH). Pt is familiar to this REFINERY OPERATOR HELPER from recent acute hospitalization at [facility] from 09/17/24-10/02/24 due to SOB and bilateral LE edema. He was admitted for acute exacerbation of CHF. During his stay, three code blues were called due to multiple cardiac arrests. 09/19/2024 he required intubation. Thoracentesis 09/19/24 with complication of pneumothorax requiring chest tube placement. Pt was extubated 09/23/2024. ST consulted. BSE completed 09/23/24 and recommended strict NPO. Re-assessment at bedside on 09/24/24 recommended NPO w/ ice chips 1 at a time, total feed. MBSS 09/25/24 revealed severe oropharyngeal dysphagia and recommended NPO, ice chips 1 at a time after oral care, consideration for alternative means of nutrition/hydration. Pt had PEG placed. Repeat MBSS 10/01/2024 revealed moderate-severe oropharyngeal dysphagia and recommended Puree textures / Moderately (Honey) thick liquids by tsp - Direct supervision, assist feeding if unable to consistently utilize small sips due to high aspiration risk and impulsivity. Pt was discharged to SNF. Pt now returns to [facility] ED from SNF for management of hyperkalemia identified from OP lab. Chest Xray 10/18/24 revealed Since previous examination there is decreased right pleural effusion and decreased atelectasis in the right lower lung. No pneumothorax. No change left pleural effusion and atelectasis in the left lung base. Pt referred for ST consult d/t hx of dysphagia. BSE recommended puree textures / honey (moderately) thick liquids w/ plan for repeat MBSS to reassess swallow function and aspiration risk to consider diet advancement. Per pt, he was mistakenly given a regular textured / thin liquid tray at SNF that he felt he had no difficulty swallows. REFINERY OPERATOR HELPER educated him in high aspiration risk during previous MBSS and recommendation for repeat MBSS to consider diet advancement as opposed to advancing diet at bedside. Pt agreeable. Current Diet Ordered: Puree / Honey thick by tsp Dentition: Partials and Missing Teeth Mental Status: Impaired (still impulsive per charting, denies swallowing deficits) Respiratory Status: Oxygenating on 2L/M nasal cannula (1L) Penetration-Aspiration Scale Penetration-Aspiration Scale: OBJECTIVE ASSESSMENT OF SWALLOW FUNCTION (QUANTITATIVE ? PER TRIAL): PENETRATION / ASPIRATION SCALE (DANG): 1 = does not enter airway 2 = enters airway/above vocal folds/ejected 3 = enters airway/above vocal folds/not ejected 4 = enters airway/contacts vocal folds/ejected 5 = enters airway/contacts vocal folds/not ejected 6 = enters airway/below vocal folds/ejected 7 = enters airway/below vocal folds/not ejected despite effort 8 = enters airway/below vocal folds/no effort VIDEOFLOROSCOPIC SCALE SCORE (DANG): Grade I = aspiration of material that has penetrated into the laryngeal vestibule, intact cough reflex Grade II = aspiration < 10 % of the bolus, intact cough reflex Grade III = aspiration of < 10 % of the bolus, reduced cough reflex or aspiration of > 10 % of the bolus, intact cough reflex Grade IV = aspiration of > 10 % of the bolus, reduced cough reflex Penetration-Aspiration Scale Score Honey Thick Liquid via teaspoon: Result: 1= does not enter airway [place] Thick Liquid via teaspoon: Result: 1= does not enter airway Thin Liquid via teaspoon: Result: 3= enters airways/above vocal folds/not ejected Thin Liquid via small single sip: cup: Result: 2= enter airway/above vocal folds/ejected Pudding via teaspoon: Result: 1= does not enter airway Comment: Esophageal screen - Retention in the lower esophagus with min retrograde flow. 1/2 Cookie: Result: 1= does not enter airway Comment: Cued cough and re-swallow after the swallow = effective. Thin Liquid via single sip: straw: Result: 3= enters airways/above vocal folds/not ejected Comment: Cued cough and re-swallow after the swallow = somewhat effective. [place] Thick Liquid via small single sip: cup: Result: 2= enter airway/above vocal folds/ejected [place] Thick Liquid via large single sip: cup: Result: 2= enter airway/above vocal folds/ejected Thin Liquid via single sip: straw Effortful swallow: Result: 5= enters airways/contacts vocal folds/not ejected Thin Liquid via single sip: straw Chin tuck: Result: 5= enters airways/contacts vocal folds/not ejected [place] Thick Liquid via small single sip: cup Chin tuck: Result: 5= enters airways/contacts vocal folds/not ejected Oral Phase Labial Seal: No Labial Escape Tongue Control During Bolus Hold: Posterior escape of greater than half of bolus Bolus Preparation/Mastication: Slow prolonged chewing/mashing with complete recollection Bolus Transport/Lingual Motion: Delayed initiation of tongue motion Oral Residue: Residue collection on oral structures Pharyngeal Phase Initiation of Pharyngeal Swallow: Bolus head in pyriforms Soft Palate Elevation: Trace column of contrast/air between soft palate and pharyngeal wall Laryngeal Elevation: Comp. Superior move thyroid cart w/comp. apprx arytenoid cart-epig pet Anterior Hyoid Excursion: Partial anterior movement Epiglottic Movement: Complete inversion Laryngeal Vestibule Closure at Height of Swallow: Incomplete; narrow column of air/contrast in laryngeal vestibule Pharyngeal Stripping Wave: Present - diminished Pharyngoesophageal Segment Opening: Parital distension and partial duration; parital obstruction of flow Tongue Base Retraction: Wide column of contrast between tongue base & post. pharyngeal wall Pharyngeal Residue: Collection of residue within or on pharyngeal structures Esophageal Phase Esophageal Clearance: Esophageal retention w/ retrograde flow below pharyngoesophageal seg. Diagnosis/Impression Diagnosis: Mild-moderate oropharyngeal dysphagia R13.12 Impression: The oral phase is primarily marked by... -Prolonged but complete mastication of cookie. -Premature posterior loss of >1/2 of thin liquids via cup to the pyriforms and even laryngeal vestibule prior to swallow onset, increasing risk for aspiration before the swallow. -Mild oral residues, which fully cleared w/ independent use of a second swallow as needed. The pharyngeal phase is primarily marked by... -Delayed swallow onset. -Decreased TB retraction, pharyngeal stripping wave, and UES opening/duration resulting in mild-moderate pharyngeal residues after the swallow. -Decreased airway closure due to decreased laryngeal elevation and anterior hyoid excursion. -Deep laryngeal penetration of thin liquids via straw w/ chin tuck and effortful swallows and mildly thick liquids via cup w/ chin tuck, which did not fully ej ect. Cough and re-swallow was most effective in reducing aspiration risk. No aspiration observed during the study. Recommendations Diet: Regular Textures (Easy to Chew textures - IDDSI Level 7) and [place]-thick Liquids (Mildly thick liquids - IDDSI Level 2) Comment: Intermittent cough and re-swallow; PEG tube present to supplement oral intake as needed Compensatory Strategies: Small Bites, Small Sips, No Straws, Slow Rate, Sitting upright and Remain sitting upright for 30 minutes after PO intake Supervision: 1:1 Close Supervision Recommend Repeat Modified Barium Swallow: Yes (2-4 weeks after continued oropharyngeal strengthening to consider further diet advancement) Need for Skilled Speech Therapy Services: Yes Comment: -Ongoing assessment of diet tolerance. If good diet tolerance of Easy to Chew textures, will recommend trials of Regular textures w/ REFINERY OPERATOR HELPER to consider further diet advancement. -Train the patient in strategies to decrease risk for aspiration. -Train the patient in oropharyngeal exercises, including Stephanie, Naeem, Effortful, CTAR. Education Completed: 1. Described result of evaluation., 2. Pt understands evaluation & agrees with goals and treatment plan. and 7. Pt requires further education on strategies & risks. Status Active ST Patient: Active Contact Information [facility] Speech Therapy:: Matilde Zeng M.A. [facility]-REFINERY OPERATOR HELPER? Speech-Language Pathologist?? [facility] [address] [place] [address]? [email or web address]?? [phone]
[2024-10-21 13:18] LABS: Pathologist Comment/Body Fluid Reviewed
--- NOTE | 2024-10-21 15:37 | CASEMGMT ---
SW sent [facility] new tube feed recommendations via [facility]. Pili Burnett [employer]ERAL [employer] ATTENDANT TASHA
--- NOTE | 2024-10-21 16:41 | PCM.PN.REN ---
Subjective Subjective no new events Objective Data Objective Data Vital Signs: Vital Signs Temp Pulse Resp BP Pulse Ox O2 Del Method O2 Flow Rate 98.8 F 59 L 20 H 140/64 H 95 Nasal Cannula 1 10/21/24 14:26 10/21/24 14:29 10/21/24 14:28 10/21/24 14:29 10/21/24 14:26 10/21/24 15:29 10/21/24 15:29 Oxygen Flow Rate (L/min) 1 Oxygen Delivery Method Nasal Cannula Weight: 59.5 kg Body Mass Index (BMI) 20.5 Intake & Output: Intake and Output for Last 24 Hours 10/19/24 10/20/24 10/21/24 23:59 23:59 23:59 Intake Total 1280 / 1280 1825 / 1825 2418.25 / 2418.25 Output Total 700 / 700 1300 / 1300 850 / 850 Balance 580 / 580 525 / 525 1568.25 / 1568.25 Lab / Micro Data 10/21/24 05:25 10/21/24 05:25 Labs: Laboratory Results - last 24 hr 10/18/24 08:16: Fl Pathologist Comment Reviewed 10/20/24 16:27: POC Glucose 132 H 10/20/24 22:41: POC Glucose 190 H 10/21/24 05:25: WBC 7.3, RBC 2.92 L, Hgb 8.1 L, Hct 25.9 L, MCV 88.7, MCH 27.7, MCHC 31.3 L, RDW Std Deviation 48.1 H, RDW Coeff of Agus 14.9 H, Plt Count 187, MPV 10.3, Immature Gran % (Auto) 0.400, Neut % (Auto) 61.9, Lymph % (Auto) 15.3 L, Coffee % (Auto) 8.9, Eos % (Auto) 12.8 H, Baso % (Auto) 0.7, Absolute Neuts (auto) 4.5, Absolute Lymphs (auto) 1.12, Nucleated RBC % 0, Sodium 134 L, Potassium 5.4 H, Chloride 105, Carbon Dioxide 27.0, Anion Gap 2 L, BUN 86 H, Creatinine 1.79 H, Estim Creat Clear Calc 32.39, Est GFR (MDRD) Af Amer 49 L, Est GFR (MDRD) Non-Af 40 L, BUN/Creatinine Ratio 48.0 H, Glucose 136 H, Calcium 8.2 L 10/21/24 05:51: POC Glucose 143 H 10/21/24 11:36: POC Glucose 104 Micro: Microbiology 10/18/24 08:16 Fluid - Pleural (Lung) Gram Stain - Final 10/18/24 08:16 Fluid - Pleural (Lung) Body Fluid Culture - Final Culture exhibits no growth. 10/18/24 08:16 Fluid - Pleural (Lung) Anaerobic Culture - Preliminary No growth in 48 hours. 10/18/24 02:28 Stool Stool Occult Blood (LOU) - Final 10/18/24 00:42 Mucosa - Nasopharyngeal SARS-CoV-2, Influenza & RSV (PCR) - Final Physical Exam Narrative no obvious distress no pallor no icterus no JVD s1s2 no murmurs lungs clear abdomen soft no organomegaly no edema no cyanosis Assessment & Plan Assessment/Plan (1) Hyperkalemia: (2) JAMES (acute kidney injury): (3) Chronic kidney disease, stage 3b: PLAN: Plan Impression/Plan: The patient is a 69-year-old male with past history of type 2 diabetes mellitus, hypertension, HFrEF (EF 35%), hypothyroidism, and osteoarthritis. The patient was recently admitted to the hospital between 09/16/2024 until 10/02/2024 with bradycardia and PEA arrest. The patient was also found to have decompensated systolic heart failure along with acute hypoxic respiratory failure requiring ventilation. Patient has clinically improved and was extubated on 09/23/2024. Patient presented back to the hospital on 10/17/2024 from [facility] because he was found to have hyperkalemia with potassium level of 6.9 mmol/L on outpatient laboratory test at [facility]. Nephrology is following for acute kidney injury and hyperkalemia. Hyperkalemia. Potassium level was as high as 6.8 mmol/L on 10/18/2024. The patient was not severely hyperglycemic on presentation. Bicarbonate level was not low on metabolic panel. Unfortunately, we cannot make diagnosis of RTA because of abnormal renal function. The patient was treated with temporizing measures with insulin?D50 on 10/18/2024. He was also given sodium polystyrene sulfonate as well. Potassium level has improved today to 5.2 mmol/L. At this point, I would suspect that the most likely cause for hyperkalemia would be due to CKD. tube feeds to be changed Acute kidney injury on probable chronic kidney disease. Patient presented to hospital with serum creatinine of 1.60 mg/dL on 09/16/2024. Patient tells me that he has CKD and has been seen by nephrology at the [facility] in the past. I suspect JAMES secondary to ischemic ATN related to decreased effective blood volume related to PEA arrest and heart failure when he was last admitted to the hospital. During last admission, serum creatinine peaked at 2.69 mg/dL on 09/28/2024. Renal function improved with supportive care and treatment of heart failure. The patient never required hemodialysis. Serum creatinine was down to 1.60 mg/dL on 10/02/2024 when he was discharged. On presentation to the hospital for recurrent admission, serum creatinine was close to usual baseline at 1.57 mg/dL on 10/17/2024. Serum creatinine remained stable
[2024-10-21] MEDS: Sodium Polystyrene Sulfonate 15 GM/60 ML UDC 30 GM PO (17:35)
[2024-10-21] MEDS: Tamsulosin HCl 0.4 MG Capsule PO (17:37)
[2024-10-21] MEDS: NEPRO TUBE FEED 1,000 ML 50 ML GT (18:20)
[2024-10-21 21:35] LABS: Bedside Glucose 116 mg/dL (74-106)
[2024-10-21 23:57] LABS: Bedside Glucose 131 mg/dL (74-106)
[2024-10-22] VITALS (11 sets, daily range): BP systolic 109–145; BP diastolic 54–78; PULSE 61–87; RESP 16–24; TEMP 36.8–37.2; O2SAT 93–96; BMI 21.1
[2024-10-22] MEDS: Ipratropium/Albuterol Sulfate 3 ML AMPUL.NEB INHALATION ×4 (03:29→15:02)
[2024-10-22] MEDS: hydrALAZINE 10 MG Tablet GT ×2 (06:44→14:41)
[2024-10-22] MEDS: Acetaminophen 500 MG Tablet 1000 MG PO ×2 (06:45→14:42)
[2024-10-22 07:15] LABS: Bedside Glucose 122 mg/dL (74-106)
[2024-10-22 07:46] LABS: Absolute Lymphocyte Count 1.17 X10^3/uL (0.83-4.51); Absolute Neutrophil Count 4.4 X10^3/uL (2.0-7.7); Basophil# 0.03 X10^3/uL; Basophil% 0.4 % (0-1); Eosinophil# 0.85 X10^3/uL; Hematocrit 25.4 % (40-54); Hemoglobin 7.8 g/dL (13.0-16.5); Lymphocyte # 1.17 X10^3/ul (0.83-4.51); Lymphocyte % 16.5 % (19-41); Mean Corp Hgb Conc 30.7 g/dL (32-36); Mean Corpuscular Hgb 27.5 pg (27.0-32.0); Mean Corpuscular Volume 89.4 fL (80-94); Mean Platelet Vol. 9.9 fl (6.2-12.0); Monocyte# 0.62 X10^3/uL; Monocyte% 8.7 % (0-10); NRBC Flagged by Analyzer 0 % (0-5); Neutrophil # 4.41 X10^3/uL (2.7-7.7); Neutrophil % 62.1 % (47-70); Platelet Count 188 K/mm3 (150-450); RBC Distribution Width SD 48.7 fl (35.1-43.9); Red Blood Count 2.84 M/mm3 (4.6-6.2); White Blood Count 7.1 K/mm3 (4.4-11.0)
[2024-10-22 08:17] LABS: Anion Gap 4 (5-15); BUN 87 mg/dL (7-18); BUN/Creat Ratio 49.4 RATIO (10-20); Calcium,Total 8.2 mg/dL (8.5-10.1); Chloride 106 mmol/L (98-107); Creatinine, Serum 1.76 mg/dL (0.70-1.30); EST Glomerular Filtration Rate 41 mL/min (>60); Est Glom Filt Rate - Afr Amer 50 mL/min (>60); Estimated Creatinine Clearance 34.23 ml/min; Glucose 137 mg/dL (74-106); Potassium 5.4 mmol/L (3.5-5.1); Sodium Level 137 mmol/L (136-145)
[2024-10-22] MEDS: Heparin Injection (Vial) 5,000 UNIT/ML VIAL 5000 UNIT SC (09:15)
[2024-10-22] MEDS: Metoprolol Tartrate 25 MG Tablet GT (09:15)
[2024-10-22] MEDS: Juven (unflavored) Packet 1 PACKET PO (09:15)
[2024-10-22] MEDS: Furosemide 40 MG Tablet PO (09:15)
[2024-10-22] MEDS: Isosorbide Mononitrate 30 MG Tablet PO (09:15)
[2024-10-22] MEDS: Aspirin E.C. 81 MG Tablet PO (09:15)
[2024-10-22] MEDS: Gabapentin 600 MG Tablet PO (09:16)
[2024-10-22] MEDS: 0.9% Saline Lock 10 ML Syringe IV (09:16)
[2024-10-22] MEDS: Pantoprazole Sodium 40 MG in 0.9% Normal Saline (100mL MB+) 100 ML 330 MG IV (09:32)
--- NOTE | 2024-10-22 10:51 | WOUNDNOTE ---
wound photo: sacrum
--- NOTE | 2024-10-22 11:51 | PCM.PN.HOSP ---
Reason for Visit Reason for Visit: Diagnoses Anemia, unspecified (10/18/24) Acidosis, unspecified (10/18/24) Hyperkalemia (10/18/24) Pleural effusion, not elsewhere classified (10/18/24) Acute kidney failure, unspecified (10/18/24) Chronic kidney disease, stage 3b (10/18/24) Dysphagia, unspecified (10/18/24) Subjective Subjective Patient seen potassium continue to trend down following adjustment in his tube feeding. Patient will be assessed for discharge back to his [facility] Objective Data Objective Data Vital Signs: Vital Signs Temp Pulse Resp BP Pulse Ox O2 Del Method O2 Flow Rate 98.9 F 63 16 138/62 H 96 Nasal Cannula 1 10/22/24 09:12 10/22/24 09:15 10/22/24 09:12 10/22/24 09:15 10/22/24 09:12 10/22/24 09:12 10/22/24 09:12 Oxygen Flow Rate (L/min) 1 Oxygen Delivery Method Nasal Cannula Weight: 61.1 kg Body Mass Index (BMI) 21.1 Intake & Output: Intake and Output for Last 24 Hours 10/20/24 10/21/24 10/22/24 23:59 23:59 23:59 Intake Total 1825 / 1825 2878.25 / 2878.25 1070 / 1070 Output Total 1300 / 1300 1250 / 1250 400 / 400 Balance 525 / 525 1628.25 / 1628.25 670 / 670 Lab / Micro Data 10/22/24 07:36 10/22/24 10:37 Labs: Laboratory Results - last 24 hr 10/18/24 08:16: Fl Pathologist Comment Reviewed 10/21/24 11:36: POC Glucose 104 10/21/24 18:23: POC Glucose 116 H 10/21/24 23:34: POC Glucose 131 H 10/22/24 06:42: POC Glucose 122 H 10/22/24 07:36: WBC 7.1, RBC 2.84 L, Hgb 7.8 L, Hct 25.4 L, MCV 89.4, MCH 27.5, MCHC 30.7 L, RDW Std Deviation 48.7 H, RDW Coeff of Agus 15.0 H, Plt Count 188, MPV 9.9, Immature Gran % (Auto) 0.300, Neut % (Auto) 62.1, Lymph % (Auto) 16.5 L, [place] % (Auto) 8.7, Eos % (Auto) 12.0 H, Baso % (Auto) 0.4, Absolute Neuts (auto) 4.4, Absolute Lymphs (auto) 1.17, Nucleated RBC % 0, Sodium 137, Potassium 5.4 H, Chloride 106, Carbon Dioxide 26.0, Anion Gap 4 L, BUN 87 H, Creatinine 1.76 H, Estim Creat Clear Calc 34.23, Est GFR (MDRD) Af Amer 50 L, Est GFR (MDRD) Non-Af 41 L, BUN/Creatinine Ratio 49.4 H, Glucose 137 H, Calcium 8.2 L 10/22/24 10:37: Potassium 5.0 Micro: Microbiology 10/18/24 08:16 Fluid - Pleural (Lung) Gram Stain - Final 10/18/24 08:16 Fluid - Pleural (Lung) Body Fluid Culture - Final Culture exhibits no growth. 10/18/24 08:16 Fluid - Pleural (Lung) Anaerobic Culture - Preliminary No growth in 48 hours. 10/18/24 02:28 Stool Stool Occult Blood (LOU) - Final 10/18/24 00:42 Mucosa - Nasopharyngeal SARS-CoV-2, Influenza & RSV (PCR) - Final Physical Exam Narrative GENERAL: cooperative but frail looking HEENT: Atraumatic; normocephalic EYES; Anicteric, Normal Conjunctiva NECK; supple, normal thyroid, RESPIRATORY: Diminished to auscultation CARDIOVASCULAR: Regular S1 S2, GI: soft, normoactive bowel sounds, : No Renal angle tenderness; EXTREMITIES: No edema, no clubbing, MUSCULOSKELETAL: no muscle wasting NEURO: Awake; no lateralizing signs. SKIN: No Rash PSYCH; Flat affect Assessment & Plan Assessment/Plan (1) Metabolic acidosis: (2) Dysphagia: (3) Bilateral pleural effusion: (4) Anemia: (5) Hyperkalemia: PLAN: Plan Patient is a 69-year-old gentleman resident as an extended care facility who was brought to the emergency department after he was found to have abnormal labs. Potassium was reported to be 6.9 sent to the ED and subsequently admitted to regular nursing floor for further management 1. Hyperkalemia ? Secondary to a combination of acidosis as well as patient impaired kidney function. Patient has been admitted to monitored bed for continuous monitoring, treatment initiated per protocol with Kayexalate calcium gluconate insulin as well as dextrose. Response to therapy being monitored with serial potassium levels BMP every 4. Consult was placed to nephrology Case discussed with Dr. Valero. Nephrology recommended continuation of patient diuretic therapy with subsequent dose adjustment and discontinuation of sodium bicarb ? 10/19/2024;Patient did receive additional Kayexalate in the evening given persistently high potassium levels. Potassium down to 5.2 as of this a.m ?10/20/2024 patient seen, potassium level still remains elevated. Consult has been placed to dietitian to recommend different tube feed with relatively low potassium content ? 10/21/2024;Patient seen potassium still remains elevated at 5.4. Consult has been placed to dietitian to recommend an alternative to Jevity for tube feeding ? 10/22/2024; Patient seen potassium continue to trend down following adjustment in his tube feeding. Patient will be assessed for discharge back to his ECF 2. Bilateral pleural effusion ? Consult was placed to interventional radiology for patient to undergo ultrasound-guided thoracocentesis with fluid analysis ordered ? 10/2024; patient underwent ultrasound-guided thoracocentesis the day prior fluid analysis reviewed 3. Anemia ? Secondary to chronic disorder monitoring H&H and transfuse if patient becomes symptomatic or hemoglobin falls below 7 4. Chronic kidney disease stage III ?Consult placed to nephrology 5. History of cardiac arrest following profound bradycardia ? Subsequent 2D echo demonstrated EF of 35% 6. BPH with lower urinary obstructive symptoms - Patient treated with tamsulosin 7. Hypertension ? Blood pressure controlled, home medications continued with dose adjustment as needed 8. Peripheral neuropathy ? Patient is on gabapentin 9. Dysphagia status post PEG tube placement ? Consult placed to dietitian for orders regarding patient tube feeding 10. Diabetes mellitus type II -Placed on Accu-Cheks a.c. and at bedtime and covered with sliding scale insulin 11. DVT prophylaxis ? Subcu heparin Time spent in the patient's overall evaluation,decision-making process, review of diagnostic data, adjustment of management, discussion with other providers, nursing nursing and ancillary staff involved in patient's care documentation, 36 minutes
[2024-10-22] MEDS: Insulin Lispro 100 UNIT/ML INSULN.PEN SC (12:05)
--- NOTE | 2024-10-22 12:09 | PCM.TXEXTCAR ---
Diet Diet Order/Speech Therapy: 10/18/24 13:58 Diet: Regular - General Food consistency:: Easy to Chew Liquid Consistency:: [place]/Mildly Thick Diet Comments: 1:1 SUP; No straws,Liquids via small cup sips,Meds in PEG,in if no crush Routine Orders/Code Status Routine Lab Work: [facility] (On 10/24/2024) Code Status: Full Code DC O2, CPAP, BIPAP needs Home O2 Discharge instructions: No Wound(s) coccyx: Wound Type: Pressure Injury sacrum: Wound Type: Pressure Injury Dressing Change: foam dressing thoracentesis site: Wound Type: thoracentesis site Problem/Diagnosis (1) Metabolic acidosis: Status: Acute Code(s): E87.20 - Acidosis, unspecified (2) Dysphagia: Status: Acute Code(s): R13.10 - Dysphagia, unspecified (3) Bilateral pleural effusion: Status: Acute Code(s): J90 - Pleural effusion, not elsewhere classified (4) Anemia: Status: Acute Code(s): D64.9 - Anemia, unspecified (5) Hyperkalemia: Status: Acute Code(s): E87.5 - Hyperkalemia Plan Patient is a 69-year-old gentleman resident as an extended care facility who was brought to the emergency department after he was found to have abnormal labs. Potassium was reported to be 6.9 sent to the ED and subsequently admitted to regular nursing floor for further management 1. Hyperkalemia ? Secondary to a combination of acidosis as well as patient impaired kidney function. Patient has been admitted to monitored bed for continuous monitoring, treatment initiated per protocol with Kayexalate calcium gluconate insulin as well as dextrose. Response to therapy being monitored with serial potassium levels BMP every 4. Consult was placed to nephrology Case discussed with Dr. Valero. Nephrology recommended continuation of patient diuretic therapy with subsequent dose adjustment and discontinuation of sodium bicarb ? 10/19/2024;Patient did receive additional Kayexalate in the evening given persistently high potassium levels. Potassium down to 5.2 as of this a.m ?10/20/2024 patient seen, potassium level still remains elevated. Consult has been placed to dietitian to recommend different tube feed with relatively low potassium content ? 10/21/2024;Patient seen potassium still remains elevated at 5.4. Consult has been placed to dietitian to recommend an alternative to Jevity for tube feeding ? 10/22/2024; Patient seen potassium continue to trend down following adjustment in his tube feeding. Patient will be assessed for discharge back to his ECF 2. Bilateral pleural effusion ? Consult was placed to interventional radiology for patient to undergo ultrasound-guided thoracocentesis with fluid analysis ordered ? 10/2024; patient underwent ultrasound-guided thoracocentesis the day prior fluid analysis reviewed 3. Anemia ? Secondary to chronic disorder monitoring H&H and transfuse if patient becomes symptomatic or hemoglobin falls below 7 4. Chronic kidney disease stage III ?Consult placed to nephrology 5. History of cardiac arrest following profound bradycardia ? Subsequent 2D echo demonstrated EF of 35% 6. BPH with lower urinary obstructive symptoms - Patient treated with tamsulosin 7. Hypertension ? Blood pressure controlled, home medications continued with dose adjustment as needed 8. Peripheral neuropathy ? Patient is on gabapentin 9. Dysphagia status post PEG tube placement ? Consult placed to dietitian for orders regarding patient tube feeding 10. Diabetes mellitus type II -Placed on Accu-Cheks a.c. and at bedtime and covered with sliding scale insulin 11. DVT prophylaxis ? Subcu heparin Time spent in the patient's overall evaluation,decision-making process, review of diagnostic data, adjustment of management, discussion with other providers, nursing nursing and ancillary staff involved in patient's care documentation, 36 minutes Allergies/Procedures Done in Hospital Allergies No Known Allergies Allergy (Verified 09/17/24 16:53) Type of Care/Length of Stay Estimated LOS: Convalescent Care Less Than 30 days Type of Care Needed: Intermediate Rehab Potential: Fair Prognosis: Fair Additional Orders/Day of Discharge Day of Discharge: 10/22/24 Dietary and Speech Recommendations Dietitian Recommendations/Changes: Adjust to Nepro @ 50ml/hr from [id number] with 200ml flushes every 4 hours to provide 1062 calories, 48g protein, and 1636ml of total water per day. Would start TF at 50ml/hr. Will adjust TF as needed. Continue kael BID in 240ml of water (for each packet) via PEG. Reviewed and approved by Shirley Irwin RDN, LISA. Discharge Plan Admission Admit Date/Time: 10/18/24 02:27 Attending Provider: Juice Moeller Primary Care Provider: Chris Umaña Consulting Providers: Shyanne Durant; Abeba Valero Instructions Patient Instructions: IDALIA RN Thoracentesis Dc Discharge Orders/Prescriptions Prescriptions: New furosemide 40 mg Tablet 40 mg PO DAILY Qty: 0 0RF melatonin 3 mg Tablet 3 mg PO QHS PRN PRN (Reason: Insomnia) Qty: 0 0RF Kael (with collagen) 7-7-1.5 gram Powder In Packet 1 packet PO BIDCM Qty: 0 0RF IV with Additives Nepro Tube Feed [Nepro Carb Steady] 1000 ML 50 mls/hr GT Ordered By: Juice Moeller MD Last Taken: 10/21/24 18:20 50 mls/hr acetaminophen 500 mg Tablet 1,000 mg PO Q8 Qty: 0 0RF SPS (with sorbitol) 15-20 gram/60 mL Suspension 60 ml PO QWEEK 56 Days Qty: 480 0RF Continued aspirin 81 mg tablet,delayed release (DR/EC) 81 mg PO DAILY albuterol sulfate 2.5 mg /3 mL (0.083 %) Solution For Nebulization 2.5 mg inhalation Q2H PRN PRN (Reason: SOB &/OR WHEEZING) Qty: 0 0RF chlorhexidine gluconate 2 % Towelette 1 towel topical DAILY Qty: 0 0RF Mucinex DM 30-600 mg Tablet Extended Release 12 Hr 2 tab PO BID Qty: 0 0RF hydralazine 10 mg Tablet 10 mg G-tube TID Qty: 0 0RF ipratropium-albuterol 0.5 mg-3 mg(2.5 mg base)/3 mL Solution For Nebulization 3 ml inhalation Q4H.RT PRN (Reason: Shortness Of Breath) Qty: 0 0RF isosorbide mononitrate 30 mg Tablet Extended Release 24 Hr 30 mg PO DAILY Qty: 0 0RF tamsulosin 0.4 mg Capsule 0.4 mg PO DAILY@1730 Qty: 0 0RF insulin lispro [Humalog KwikPen Insulin] 100 unit/mL Insulin Pen See Protocol subcut Q6 Qty: 0 0RF Protocol: 3. Sliding Scale Insulin Med Dosing Condition: 150-189 mg/dl = 1 unit Condition: 190-229 mg/dl = 2 units Condition: 230-269 mg/dl = 3 units Condition: 270-309 mg/dl = 4 units Condition: 310-349 mg/dl = 5 units Condition: 350-399 mg/dl = 6 units Condition: 400-449 mg/dl = 7 units Condition: Greater than 449 call physician Protocol Text: Suggested for: - Patients on Total Daily Insulin Dose of 37-55 units - Obese, infected, or steroid patients MEDIUM DOSING ALGORITHIM metoprolol tartrate 25 mg Tablet 25 mg G-tube BID Qty: 0 0RF bisacodyl [Dulcolax (bisacodyl)] 10 mg suppository 10 mg UT DAILY PRN (Reason: constipation) (DME) FreeStyle Curtis [address] [place] Misc See Rx Instructions .ROUTE Rx Instructions: As directed gabapentin 300 mg capsule 900 mg PO BID Discontinued IV with Additives Jevity 1.5 1000 ML 50 mls/hr GT Ordered By: Pastor Holder DO Last Taken: Unknown Referrals / Follow Up: Chris Umaña MD [Primary Care Provider] - Within 1 Week Disposition Disposition (needs filled in before D/C Order can be placed): Long-Term Facility
[2024-10-22 12:26] LABS: Bedside Glucose 173 mg/dL (74-106)
--- NOTE | 2024-10-22 12:35 | PCM.PN.REN ---
Subjective Subjective no new events Objective Data Objective Data Vital Signs: Vital Signs Temp Pulse Resp BP Pulse Ox O2 Del Method O2 Flow Rate 98.9 F 68 16 138/62 H 96 Nasal Cannula 1 10/22/24 09:12 10/22/24 11:22 10/22/24 11:22 10/22/24 09:15 10/22/24 09:12 10/22/24 09:12 10/22/24 09:12 Oxygen Flow Rate (L/min) 1 Oxygen Delivery Method Nasal Cannula Weight: 61.1 kg Body Mass Index (BMI) 21.1 Intake & Output: Intake and Output for Last 24 Hours 10/20/24 10/21/24 10/22/24 23:59 23:59 23:59 Intake Total 1825 / 1825 2878.25 / 2878.25 1070 / 1070 Output Total 1300 / 1300 1250 / 1250 400 / 400 Balance 525 / 525 1628.25 / 1628.25 670 / 670 Lab / Micro Data 10/22/24 07:36 10/22/24 10:37 Labs: Laboratory Results - last 24 hr 10/18/24 08:16: Fl Pathologist Comment Reviewed 10/21/24 18:23: POC Glucose 116 H 10/21/24 23:34: POC Glucose 131 H 10/22/24 06:42: POC Glucose 122 H 10/22/24 07:36: WBC 7.1, RBC 2.84 L, Hgb 7.8 L, Hct 25.4 L, MCV 89.4, MCH 27.5, MCHC 30.7 L, RDW Std Deviation 48.7 H, RDW Coeff of Agus 15.0 H, Plt Count 188, MPV 9.9, Immature Gran % (Auto) 0.300, Neut % (Auto) 62.1, Lymph % (Auto) 16.5 L, Mathews % (Auto) 8.7, Eos % (Auto) 12.0 H, Baso % (Auto) 0.4, Absolute Neuts (auto) 4.4, Absolute Lymphs (auto) 1.17, Nucleated RBC % 0, Sodium 137, Potassium 5.4 H, Chloride 106, Carbon Dioxide 26.0, Anion Gap 4 L, BUN 87 H, Creatinine 1.76 H, Estim Creat Clear Calc 34.23, Est GFR (MDRD) Af Amer 50 L, Est GFR (MDRD) Non-Af 41 L, BUN/Creatinine Ratio 49.4 H, Glucose 137 H, Calcium 8.2 L 10/22/24 10:37: Potassium 5.0 10/22/24 12:05: POC Glucose 173 H Micro: Microbiology 10/18/24 08:16 Fluid - Pleural (Lung) Gram Stain - Final 10/18/24 08:16 Fluid - Pleural (Lung) Body Fluid Culture - Final Culture exhibits no growth. 10/18/24 08:16 Fluid - Pleural (Lung) Anaerobic Culture - Preliminary No growth in 48 hours. 10/18/24 02:28 Stool Stool Occult Blood (LOU) - Final 10/18/24 00:42 Mucosa - Nasopharyngeal SARS-CoV-2, Influenza & RSV (PCR) - Final Physical Exam Narrative no obvious distress no pallor no icterus no JVD s1s2 no murmurs lungs clear abdomen soft no organomegaly no edema no cyanosis Assessment & Plan Assessment/Plan (1) Hyperkalemia: (2) JAMES (acute kidney injury): (3) Chronic kidney disease, stage 3b: PLAN: Plan Impression/Plan: The patient is a 69-year-old male with past history of type 2 diabetes mellitus, hypertension, HFrEF (EF 35%), hypothyroidism, and osteoarthritis. The patient was recently admitted to the hospital between 09/16/2024 until 10/02/2024 with bradycardia and PEA arrest. The patient was also found to have decompensated systolic heart failure along with acute hypoxic respiratory failure requiring ventilation. Patient has clinically improved and was extubated on 09/23/2024. Patient presented back to the hospital on 10/17/2024 from SNF because he was found to have hyperkalemia with potassium level of 6.9 mmol/L on outpatient laboratory test at [facility]. Nephrology is following for acute kidney injury and hyperkalemia. Acute renal failure CKD stage IIIb Creatinine is back to baseline Hyperkalemia. No other identifiable etiology, possibly related to tube feeds. This has been changed. Potassium is borderline today. It might take some time for potassium levels to equilibrium. Can be discharged back [facility] [place] [facility] with Kayexalate twice a week. If he continues to have hyperkalemia, he might be a candidate for long-term potassium binders such as Lokelma or Veltassa. Discussed with hospitalist
[2024-10-22] MEDS: Sodium Polystyrene Sulfonate 15 GM/60 ML UDC PO (12:39)
--- NOTE | 2024-10-22 12:47 | CASEMGMT ---
NASIR notified [facility] that patient may return today. NASIR also asked if they have his new tube feed Nepro. Pili Burnett PROPOSAL EDITOR TASHA
--- NOTE | 2024-10-22 12:53 | DS.PCM_ITS ---
Providers Date of Admission: 10/18/24 Date of Discharge: 10/22/24 Primary Care Physician: Dr. Chris Umaña MD Consultations 10/18/24 03:21 Consult: Onc/Wound/freelance art director Routine Comment: Reason for Consult:: decubitus 10/18/24 03:50 Consult: Onc/Wound/freelance art director Routine Comment: 10/18/24 08:24 Consult: Nephrology Routine Consulting Provider: Abeba Valero Reason for Consult: Severe Hyperkalemia EMERGENT Consult: Yes MD Notified: Yes Date Notified: 10/18/24 Time Notified: 08:24 Method of Notification: Verbal Reason For Visit: HYPERKALEMIA/METABOLIC ACIDOSIS Diagnosis Discharge Diagnosis (1) Metabolic acidosis: Status: Acute Code(s): E87.20 - Acidosis, unspecified (2) Dysphagia: Status: Acute Code(s): R13.10 - Dysphagia, unspecified (3) Bilateral pleural effusion: Status: Acute Code(s): J90 - Pleural effusion, not elsewhere classified (4) Anemia: Status: Acute Code(s): D64.9 - Anemia, unspecified (5) Hyperkalemia: Status: Acute Code(s): E87.5 - Hyperkalemia Plan Patient is a 69-year-old gentleman resident as an extended care facility who was brought to the emergency department after he was found to have abnormal labs. Potassium was reported to be 6.9 sent to the ED and subsequently admitted to regular nursing floor for further management 1. Hyperkalemia ? Secondary to a combination of acidosis as well as patient impaired kidney function. Patient has been admitted to monitored bed for continuous monitoring, treatment initiated per protocol with Kayexalate calcium gluconate insulin as well as dextrose. Response to therapy being monitored with serial potassium levels BMP every 4. Consult was placed to nephrology Case discussed with Dr. Valero. Nephrology recommended continuation of patient diuretic therapy with subsequent dose adjustment and discontinuation of sodium bicarb ? 10/19/2024;Patient did receive additional Kayexalate in the evening given persistently high potassium levels. Potassium down to 5.2 as of this a.m ?10/20/2024 patient seen, potassium level still remains elevated. Consult has been placed to dietitian to recommend different tube feed with relatively low potassium content ? 10/21/2024;Patient seen potassium still remains elevated at 5.4. Consult has been placed to dietitian to recommend an alternative to Jevity for tube feeding ? 10/22/2024; Patient seen potassium continue to trend down following adjustment in his tube feeding. Patient will be assessed for discharge back to his ECF ? Patient repeat potassium came back at 5.0. A requisition was sent to the ECF to have repeat potassium to be drawn on 10/24/2024. Patient was also discharged with q. weekly Kayexalate 2. Bilateral pleural effusion ? Consult was placed to interventional radiology for patient to undergo ultrasound-guided thoracocentesis with fluid analysis ordered ? 10/2024; patient underwent ultrasound-guided thoracocentesis the day prior fluid analysis reviewed 3. Anemia ? Secondary to chronic disorder monitoring H&H and transfuse if patient becomes symptomatic or hemoglobin falls below 7 4. Chronic kidney disease stage III ?Consult placed to nephrology 5. History of cardiac arrest following profound bradycardia ? Subsequent 2D echo demonstrated EF of 35% 6. BPH with lower urinary obstructive symptoms - Patient treated with tamsulosin 7. Hypertension ? Blood pressure controlled, home medications continued with dose adjustment as needed 8. Peripheral neuropathy ? Patient is on gabapentin 9. Dysphagia status post PEG tube placement ? Consult placed to dietitian for orders regarding patient tube feeding 10. Diabetes mellitus type II -Placed on Accu-Cheks a.c. and at bedtime and covered with sliding scale insulin 11. DVT prophylaxis ? Subcu heparin Time spent in the patient's overall evaluation,decision-making process, review of diagnostic data, adjustment of management, discussion with other providers, nursing nursing and ancillary staff involved in patient's care documentation, 36 minutes Medications at Discharge Home Medications aspirin 81 mg tablet,delayed release 81 mg PO DAILY 09/17/24 albuterol sulfate 2.5 mg/3 mL (0.083 %) solution for nebulization 2.5 mg (3 mL) inhalation Q2H PRN PRN SOB &/OR WHEEZING #0 mL 10/02/24 chlorhexidine gluconate 2 % towelette 1 towel topical DAILY #0 ea 10/02/24 dextromethorphan-guaifenesin 30 mg-600 mg tablet extended hr (Mucinex DM) 2 tab PO BID #0 tabs 10/02/24 hydralazine 10 mg tablet 10 mg G-tube TID #0 tabs 10/02/24 insulin lispro 100 unit/mL subcutaneous pen (Humalog KwikPen (U-100) Insulin) See Protocol subcut Q6 #0 mL 10/02/24 ipratropium 0.5 mg-albuterol 3 mg (2.5 mg base)/3 mL nebulization soln 3 ml inhalation Q4H.RT PRN Shortness Of Breath #0 mL 10/02/24 isosorbide mononitrate 30 mg tablet,extended release 24 hr 30 mg PO DAILY #0 tabs 10/02/24 metoprolol tartrate 25 mg tablet 25 mg G-tube BID #0 tabs 10/02/24 tamsulosin 0.4 mg capsule 0.4 mg PO DAILY@1730 #0 caps 10/02/24 bisacodyl 10 mg rectal suppository (Dulcolax (bisacodyl)) 10 mg HI DAILY PRN constipation 10/17/24 flash glucose scanning reader ([employer] Curtis [address] [place]) 10/17/24 gabapentin 300 mg capsule 900 mg PO BID 10/17/24 IV with Additives 50 mls/hr GT 10/22/24 acetaminophen 500 mg tablet 1,000 mg (2 x 500 mg) PO Q8 #0 tabs 10/22/24 arginine 7 gram-glutam 7 gram-CaHMB 1.5 dfke-zckap-dl-min oral pwd pkt (Kael (with collagen)) 1 packet PO BIDCM #0 ea 10/22/24 furosemide 40 mg tablet 40 mg PO DAILY #0 tabs 10/22/24 melatonin 3 mg tablet 3 mg PO QHS PRN PRN Insomnia #0 tabs 10/22/24 sodium polystyrene sulfonate 15 gram-sorbitol 20 gram/60 mL oral susp (SPS (with sorbitol)) 60 ml PO QWEEK 8 weeks #480 mL 10/22/24 Physical Exam Narrative GENERAL: cooperative but frail looking HEENT: Atraumatic; normocephalic EYES; Anicteric, Normal Conjunctiva NECK; supple, normal thyroid, RESPIRATORY: Diminished to auscultation CARDIOVASCULAR: Regular S1 S2, GI: soft, normoactive bowel sounds, : No Renal angle tenderness; EXTREMITIES: No edema, no clubbing, MUSCULOSKELETAL: no muscle wasting NEURO: Awake; no lateralizing signs. SKIN: No Rash PSYCH; Flat affect Weight / BMI Weight Weight: 61.1 kg Body Mass Index (BMI) 21.1 ABG / Lab / Microbiology Data 10/22/24 07:36 10/22/24 10:37 Laboratory: Laboratory Results - last 24 hr 10/18/24 08:16: Fl Pathologist Comment Reviewed 10/21/24 18:23: POC Glucose 116 H 10/21/24 23:34: POC Glucose 131 H 10/22/24 06:42: POC Glucose 122 H 10/22/24 07:36: WBC 7.1, RBC 2.84 L, Hgb 7.8 L, Hct 25.4 L, MCV 89.4, MCH 27.5, MCHC 30.7 L, RDW Std Deviation 48.7 H, RDW Coeff of Agus 15.0 H, Plt Count 188, MPV 9.9, Immature Gran % (Auto) 0.300, Neut % (Auto) 62.1, Lymph % (Auto) 16.5 L , [place] % (Auto) 8.7, Eos % (Auto) 12.0 H, Baso % (Auto) 0.4, Absolute Neuts (auto) 4.4, Absolute Lymphs (auto) 1.17, Nucleated RBC % 0, Sodium 137, P otassium 5.4 H, Chloride 106, Carbon Dioxide 26.0, Anion Gap 4 L, BUN 87 H, C reatinine 1.76 H, Estim Creat Clear Calc 34.23, Est GFR (MDRD) Af Amer 50 L, Est GFR (MDRD) Non-Af 41 L, BUN/Creatinine Ratio 49.4 H, Glucose 137 H, Calcium 8.2 L 10/22/24 10:37: Potassium 5.0 10/22/24 12:05: POC Glucose 173 H Microbiology: Microbiology 10/18/24 08:16 Fluid - Pleural (Lung) Gram Stain - Final 10/18/24 08:16 Fluid - Pleural (Lung) Body Fluid Culture - Final Culture exhibits no growth. 10/18/24 08:16 Fluid - Pleural (Lung) Anaerobic Culture - Preliminary No growth in 48 hours. 10/18/24 02:28 Stool Stool Occult Blood (LOU) - Final 10/18/24 00:42 Mucosa - Nasopharyngeal SARS-CoV-2, Influenza & RSV (PCR) - Final D/C Instructions Discharge Diet: No restrictions Discharge Activity: Return to Normal Activity Call your doctor if you observe: Fever of 101 or Higher, Shortness of breath, Fainting spells and Chest pain DC O2, CPAP, BIPAP Needs Home O2 Discharge instructions: No Meaningful Use Info Meaningful Use Meaningful Use Diagnoses (Choose all that apply): None applicable Ischemic Stroke Statin Dosing Therapy Reference: STATIN DOSE THERAPY REFERENCE: * Patients > 75 years receive moderate or high dose statin therapy. * Patients 75 years or YOUNGER should receive HIGH intensity statin dose unless contraindicated. You will be required to document reason for non-treatment if statin daily dose does not meet guidelines. HIGH DOSE STATIN THERAPY DAILY Atorvastatin > than or = to 40 mg Rosuvastatin > than or = to 20 mg Amlodipine + Atorvastatin > than or = to 2.5/40 mg Ezetimibe + Simvastatin 10/80 mg Simvastatin 80mg Discharge Plan Admission Admit Date/Time: 10/18/24 02:27 Attending Provider: Juice Moeller Primary Care Provider: Chris Umaña Consulting Providers: Shyanne Durant; Abeba Valero Instructions Patient Instructions: RAD RN Thoracentesis Dc Discharge Orders/Prescriptions Prescriptions: New furosemide 40 mg Tablet 40 mg PO DAILY Qty: 0 0RF melatonin 3 mg Tablet 3 mg PO QHS PRN PRN (Reason: Insomnia) Qty: 0 0RF Kael (with collagen) 7-7-1.5 gram Powder In Packet 1 packet PO BIDCM Qty: 0 0RF IV with Additives Nepro Tube Feed [Nepro Carb Steady] 1000 ML 50 mls/hr GT Ordered By: Juice Moeller MD Last Taken: 10/21/24 18:20 50 mls/hr acetaminophen 500 mg Tablet 1,000 mg PO Q8 Qty: 0 0RF SPS (with sorbitol) 15-20 gram/60 mL Suspension 60 ml PO QWEEK 56 Days Qty: 480 0RF Continued aspirin 81 mg tablet,delayed release (DR/EC) 81 mg PO DAILY albuterol sulfate 2.5 mg /3 mL (0.083 %) Solution For Nebulization 2.5 mg inhalation Q2H PRN PRN (Reason: SOB &/OR WHEEZING) Qty: 0 0RF chlorhexidine gluconate 2 % Towelette 1 towel topical DAILY Qty: 0 0RF Mucinex DM 30-600 mg Tablet Extended Release 12 Hr 2 tab PO BID Qty: 0 0RF hydralazine 10 mg Tablet 10 mg G-tube TID Qty: 0 0RF ipratropium-albuterol 0.5 mg-3 mg(2.5 mg base)/3 mL Solution For Nebulization 3 ml inhalation Q4H.RT PRN (Reason: Shortness Of Breath) Qty: 0 0RF isosorbide mononitrate 30 mg Tablet Extended Release 24 Hr 30 mg PO DAILY Qty: 0 0RF tamsulosin 0.4 mg Capsule 0.4 mg PO DAILY@1730 Qty: 0 0RF insulin lispro [Humalog KwikPen Insulin] 100 unit/mL Insulin Pen See Protocol subcut Q6 Qty: 0 0RF Protocol: 3. Sliding Scale Insulin Med Dosing Condition: 150-189 mg/dl = 1 unit Condition: 190-229 mg/dl = 2 units Condition: 230-269 mg/dl = 3 units Condition: 270-309 mg/dl = 4 units Condition: 310-349 mg/dl = 5 units Condition: 350-399 mg/dl = 6 units Condition: 400-449 mg/dl = 7 units Condition: Greater than 449 call physician Protocol Text: Suggested for: - Patients on Total Daily Insulin Dose of 37-55 units - Obese, infected, or steroid patients MEDIUM DOSING ALGORITHIM metoprolol tartrate 25 mg Tablet 25 mg G-tube BID Qty: 0 0RF bisacodyl [Dulcolax (bisacodyl)] 10 mg suppository 10 mg HI DAILY PRN (Reason: constipation) (DME) FreeStyle Curtis 2 [place] Misc See Rx Instructions .ROUTE Rx Instructions: As directed gabapentin 300 mg capsule 900 mg PO BID Discontinued IV with Additives Jevity 1.5 1000 ML 50 mls/hr GT Ordered By: Pastor Holder DO Last Taken: Unknown Referrals / Follow Up: Chris Umaña MD [Primary Care Provider] - Within 1 Week Disposition Disposition (needs filled in before D/C Order can be placed): [facility] Charges/Coding Visit Charges Inpatient E&M: 39159 Disch Hosp >30min
--- NOTE | 2024-10-22 13:34 | CASEMGMT ---
Patient is ready for discharge back to [facility]. NASIR notified [facility] yesterday of patient's tube feed change. Physicians will transport patient via wheelchair van. Pili CORDOVA
--- NOTE | 2024-10-22 13:52 | CASEMGMT ---
Discharge Planning Discharge orders, signed med list, and transport time sent to [facility] via [facility]. Physicians will transport patient by wheelchair at 3:30p. Nursing, SW, and pt updated. VM left for pts brother (Carroll). Valorie Calloway DC Planning Asst.
--- NOTE | 2024-10-22 15:27 | PHA.DC.MR.R ---
Pharmacy [place] Med Reconciliation Pharmacy Service has performed discharge medication reconciliation for this patient. The patient's discharge medication list was reviewed for discrepancies and discrepancies were resolved. Medications at Discharge Home Medications aspirin 81 mg tablet,delayed release 81 mg PO DAILY 09/17/24 albuterol sulfate 2.5 mg/3 mL (0.083 %) solution for nebulization 2.5 mg (3 mL) inhalation Q2H PRN PRN SOB &/OR WHEEZING #0 mL 10/02/24 chlorhexidine gluconate 2 % towelette 1 towel topical DAILY #0 ea 10/02/24 dextromethorphan-guaifenesin 30 mg-600 mg tablet extended [id number] hr (Mucinex DM) 2 tab PO BID #0 tabs 10/02/24 hydralazine 10 mg tablet 10 mg G-tube TID #0 tabs 10/02/24 insulin lispro 100 unit/mL subcutaneous pen (Humalog KwikPen (U-100) Insulin) See Protocol subcut Q6 #0 mL 10/02/24 ipratropium 0.5 mg-albuterol 3 mg (2.5 mg base)/3 mL nebulization soln 3 ml inhalation Q4H.RT PRN Shortness Of Breath #0 mL 10/02/24 isosorbide mononitrate 30 mg tablet,extended release 24 hr 30 mg PO DAILY #0 tabs 10/02/24 metoprolol tartrate 25 mg tablet 25 mg G-tube BID #0 tabs 10/02/24 tamsulosin 0.4 mg capsule 0.4 mg PO DAILY@1730 #0 caps 10/02/24 bisacodyl 10 mg rectal suppository (Dulcolax (bisacodyl)) 10 mg [place] DAILY PRN constipation 10/17/24 flash glucose scanning reader (Why Not Give Back Curtis 2 [place]) 10/17/24 gabapentin 300 mg capsule 900 mg PO BID 10/17/24 IV with Additives 50 mls/hr GT 10/22/24 acetaminophen 500 mg tablet 1,000 mg (2 x 500 mg) PO Q8 #0 tabs 10/22/24 arginine 7 gram-glutam 7 gram-CaHMB 1.5 avuz-ngaqt-hw-min oral pwd pkt (Kael (with collagen)) 1 packet PO BIDCM #0 ea 10/22/24 furosemide 40 mg tablet 40 mg PO DAILY #0 tabs 10/22/24 melatonin 3 mg tablet 3 mg PO QHS PRN PRN Insomnia #0 tabs 10/22/24 sodium polystyrene sulfonate 15 gram-sorbitol 20 gram/60 mL oral susp (SPS (with sorbitol)) 60 ml PO QWEEK 8 weeks #480 mL 10/22/24
[2024-10-22 16:08] LABS: Albumin 1.1 g/dL (2.9-4.4); Alpha-1-Globulins 0.2 g/dL (0.0-0.4); Alpha-2-Globulins 0.4 g/dL (0.4-1.0); Free Kappa Light Chains 75.6 mg/L (3.3-19.4); Free Lambda Light Chains 40.5 mg/L (5.7-26.3); Gamma Globulin 0.7 g/dL (0.4-1.8); IMMUNOFIXATION RESULT,S Comment: (.); Immunoglobulin A 199 mg/dL (61-437); Immunoglobulin G 714 mg/dL (603-1613); Immunoglobulin M 51 mg/dL (20-172); PROEL- TOTAL PROTEIN 2.6 g/dL (6.0-8.5)
== END 2024-10-22 16:30 | DRG 640 ==
LOC: ED 10-18 02:30 → PCU 10-18 02:40
PROVIDERS: Internal Medicine Nephrology; Nurse Practitioner Acute Care; Admitting Provider Internal Medicine; Emergency Provider Emergency Medicine; PCP Family Medicine; Visit Provider Internal Medicine
DX: E87.5 Hyperkalemia (principal); N17.0 Acute kidney failure with tubular necrosis; J90 Pleural effusion, not elsewhere classified; I42.8 Other cardiomyopathies; I13.0 Hypertensive heart and chronic kidney disease with heart failure and stage 1 through stage 4 chronic kidney disease, or unspecified chronic kidney disease; I50.22 Chronic systolic (congestive) heart failure; N13.8 Other obstructive and reflux uropathy; L89.142 Pressure ulcer of left lower back, stage 2; L89.302 Pressure ulcer of unspecified buttock, stage 2; E87.20 Acidosis, unspecified; R13.10 Dysphagia, unspecified; N18.32 Chronic kidney disease, stage 3b; E11.42 Type 2 diabetes mellitus with diabetic polyneuropathy; D63.1 Anemia in chronic kidney disease; Z93.1 Gastrostomy status; Z79.4 Long term (current) use of insulin; E11.22 Type 2 diabetes mellitus with diabetic chronic kidney disease; I25.2 Old myocardial infarction; N40.1 Benign prostatic hyperplasia with lower urinary tract symptoms; Z79.82 Long term (current) use of aspirin; Z79.899 Other long term (current) drug therapy; Z79.891 Long term (current) use of opiate analgesic; Z86.16 Personal history of COVID-19; Z86.74 Personal history of sudden cardiac arrest; Z87.891 Personal history of nicotine dependence
CPT/HCPCS: 32555; 36415; 71045; 71046; 74177; 74230; 80048; 80053; 80076; 81001; 82009; 82274; 82436; 82550; 82570; 82728; 82784; 82803; 82945; 82962; 83540; 83550; 83605; 83615; 83735; 83883; 84100; 84132; 84133; 84145; 84156; 84157; 84165; 84300; 84484; 85025; 85610; 85652; 85730; 86140; 86334; 87070; 87075; 87205; 87631; 88108; 88305; 88313; 89050; 92526; 92610; 92611; 93005; 94640; 94668; 97163; 97165; 97530; 97535; 97802; 97803; 99252; 99285; Q9967; A4216; G0463; J0612; J1940

== ENCOUNTER 2024-10-27 06:58 | Emergency (ER) | payer OTHER, SELFPAY ==
[2024-10-27] VITALS (8 sets, daily range): BP systolic 131–146; BP diastolic 59–88; PULSE 59–79; RESP 18–23; TEMP 36.9–37.2; O2SAT 86–100; BMI 23.7
--- NOTE | 2024-10-27 07:12 | EKG12_ITS ---
Test Reason : Blood Pressure : */* mmHG Vent. Rate : 62 BPM Atrial Rate : 62 BPM P-R Int : 174 ms QRS Dur : 96 ms QT Int : 454 ms P-R-T Axes : 50 16 55 degrees QTcB Int : 460 ms Normal sinus rhythm Incomplete right bundle branch block Borderline ECG Confirmed by ARUNA MARION, AMIE ([id number]), editor newspaper MARK RAMSEY ([id number]) on 10/28/2024 2:02:11 PM Referred By: Confirmed By: AMIE VALDOVINOS MD
--- NOTE | 2024-10-27 07:12 | EX.ED.DYSGE1 ---
HPI History of Present Illness Chief Complaint: Syncope Narrative Narrative: 69-year-old male presents from the [facility] with reported syncope for 45 seconds. Patient relays history that he has multiple medical problems including asthma. He has been at the [facility] for a few weeks. Reportedly, he had a syncopal episode yesterday, then today as well. He states that they thought he was going into cardiac arrest again. He states he had 3 episodes of cardiac arrest in September of last year, approximately 1 month ago. He thinks that his asthma is acting up in the sense that he has only been wearing oxygen at the [facility] and did not before. He denies any prodromal symptoms such as chest pain, or increasing shortness of breath, no lightheadedness. While detention facility reports 45-second episode of syncope, patient denies any, but states he does not recall passing out today or yesterday. [facility] Medical History Chronic respiratory failure Decubitus ulcer of right buttock, stage 3 Decubitus ulcer of left buttock, 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 Diabetes mellitus, type 2 History of pneumothorax Nonischemic cardiomyopathy Medical non-compliance Congestive heart failure PFO (patent foramen ovale) Cardiac arrest Nephrotic syndrome History of COVID-19 Diabetes Home Medications ?Medication ?Instructions ?Recorded ?Last Taken ?Type aspirin 81 mg tablet,delayed 81 mg PO DAILY 09/17/24 09/17/24 History release albuterol sulfate 2.5 mg/3 mL 2.5 mg (3 mL) inhalation Q2H PRN 10/02/24 Unknown Rx (0.083 %) solution for nebulization PRN SOB &/OR WHEEZING #0 mL dextromethorphan-guaifenesin 30 2 tab PO BID #0 tabs 10/02/24 Unknown Rx mg-600 mg tablet extended [id number] hr (Mucinex DM) hydralazine 10 mg tablet 10 mg G-tube TID #0 tabs 10/02/24 Unknown Rx insulin lispro 100 unit/mL See Protocol subcut Q6 #0 mL 10/02/24 Unknown Rx subcutaneous pen (Humalog KwikPen (U-100) Insulin) ipratropium 0.5 mg-albuterol 3 mg 3 ml inhalation Q4H.RT PRN 10/02/24 Unknown Rx (2.5 mg base)/3 mL nebulization Shortness Of Breath #0 mL soln isosorbide mononitrate 30 mg 30 mg PO DAILY #0 tabs 10/02/24 Unknown Rx tablet,extended release 24 hr metoprolol tartrate 25 mg tablet 25 mg G-tube BID #0 tabs 10/02/24 Unknown Rx tamsulosin 0.4 mg capsule 0.4 mg PO DAILY@1730 #0 caps 10/02/24 Unknown Rx bisacodyl 10 mg rectal suppository 10 mg MA DAILY PRN constipation 10/17/24 Unknown History (Dulcolax (bisacodyl)) flash glucose scanning reader 10/17/24 Unknown History (FreeStyle Curtis 2 Mccloud) gabapentin 300 mg capsule 900 mg PO BID 10/17/24 Unknown History acetaminophen 500 mg tablet 1,000 mg (2 x 500 mg) PO Q8 #0 tabs 10/22/24 Unknown Rx furosemide 40 mg tablet 40 mg PO DAILY #0 tabs 10/22/24 Unknown Rx melatonin 3 mg tablet 3 mg PO QHS PRN PRN Insomnia #0 10/22/24 Unknown Rx tabs sodium polystyrene sulfonate 15 60 ml PO QWEEK 8 weeks #480 mL 10/22/24 Unknown Rx gram-sorbitol 20 gram/60 mL oral susp (SPS (with sorbitol)) magnesium hydroxide 400 mg/5 mL 30 ml PO DAILY PRN constipation 10/27/24 Unknown History oral suspension (Dulcolax (magnesium hydroxide)) multivitamin (Daily Multi-Vitamin 1 tab PO DAILY 10/27/24 Unknown History tablet) Allergy/AdvReac Type Severity Reaction Status Date / Time No Known Allergies Allergy Verified 10/27/24 06:59 Surgical History S/P percutaneous endoscopic gastrostomy (PEG) tube placement History of thoracentesis H/O chest tube placement Hx of thumb surgery Social History housing: [facility] Smoking Status: Former smoker alcohol intake: never substance use type: does not use ROS ROS ED ROS Narrative Constitutional: No fever, no chills. HEENT: No sore throat. No neck pain. No loss of vision. No rhinorrhea. Cardiovascular: No chest pain. No palpitations. No pedal edema. Respiratory: No cough, no shortness of breath. Abdominal: No abdominal pain. No nausea. No vomiting. Genitourinary: No dysuria. No hematuria. Musculoskeletal: No myalgias. No arthralgias. Neurologic: No headaches. No dizziness. No lightheadedness. Reported syncope. Skin: No rash. No change in color. EXAM Physical Exam Narrative Exam Narrative: Afebrile. Vital signs noted. Cardiovascular examination regular rate and rhythm. Decreased breath sounds bilateral bases. Moving a fair to good amount of air. Speaking in full sentences. Mildly cachectic appearing. Abdomen soft. Positive bowel sounds. Awake, alert, oriented. Mild agitation. Const Vital Signs: 10/27/24 06:59 10/27/24 06:59 10/27/24 07:02 Temperature 98.5 F Temperature Source Oral Pulse Rate 63 Respiratory Rate 18 Respiratory Effort Normal Non-Labored Respiratory Pattern Normal Blood Pressure 131/59 H Blood Pressure Mean 83 Pulse Ox 86 92 Oxygen Delivery Method Room Air Nasal Cannula Oxygen Flow Rate (L/min) 5 10/27/24 07:04 10/27/24 07:59 10/27/24 08:00 Temperature Temperature Source Pulse Rate 59 L 61 Respiratory Rate 21 H 23 H Respiratory Effort Respiratory Pattern Blood Pressure 131/68 H 140/61 H Blood Pressure Mean 89 87 Pulse Ox 91 100 98 Oxygen Delivery Method Nasal Cannula Nasal Cannula Nasal Cannula Oxygen Flow Rate (L/min) 5 10/27/24 09:00 10/27/24 10:00 Temperature Temperature Source Pulse Rate 74 79 Respiratory Rate 18 18 Respiratory Effort Respiratory Pattern Blood Pressure 146/61 H 132/88 H Blood Pressure Mean 89 102 Pulse Ox 96 94 Oxygen Delivery Method Nasal Cannula Nasal Cannula Oxygen Flow Rate (L/min) MDM MDM MDM Narrative Medical decision making narrative: Differential diagnosis includes but not limited to vasovagal near syncope/syncope versus dehydration versus CO2 retention versus hypoxemia. Patient arrived to the emergency department satting 86% on room air. He was placed on 5 L nasal cannula oxygen. Also with a concern for pneumonia in the differential diagnosis, chest x-ray will be obtained as well as basic laboratory work. EKG was obtained and interpreted by myself as normal sinus rhythm at 62 bpm without ectopy or acute ST changes. No STEMI. QTc 460 ms. Venous blood gas obtained and reviewed with pH of 7.36 and pCO2 only 50.6 so I do not think use retaining carbon dioxide. I reviewed his laboratory work and his white count is normal at 9.5 and while his hemoglobin is 7.6, few days ago was 7.8 and stable. I do not feel he requires blood transfusion. Platelet count normal at 293. Electrolyte panel is remarkable for a BUN of 79 and creatinine 1.70. This is consistent with his chronic kidney disease, and in review of his problem list they stage IIIb. Glucose is appropriately elevated at 136 with an anion gap of 5. Alk phos is elevated at 324 but this is a chronic elevation when compared to prior laboratories. Initial high-sensitivity troponin is 30, below his baseline in the 40s. Repeat troponin is 29. Chest x-ray in 1 view interpreted by myself does show chronic changes and chronic pleural effusions. I reviewed the radiology report which comments on new infiltrates bilaterally versus atelectasis. Patient does [facility] oxygen at the [facility]. He was sent in for syncopal episode, and I do not think he has a pneumonia as he has a normal white count, and is afebrile. I feel he can be discharged back to [facility]. Disposition is discharged in stable condition. History & Record Review Discussion w/independent historian: Patient Additional record(s) reviewed:: Prior labs Lab Data Attestation: I reviewed the patient's lab results. Labs: Laboratory Results - last 24 hr 10/27/24 10/27/24 07:06 09:46 WBC 9.5 RBC 2.70 L Hgb 7.6 L Hct 24.6 L MCV 91.1 MCH 28.1 MCHC 30.9 L RDW Std Deviation 50.1 H RDW Coeff of Agus 15.2 H Plt Count 293 MPV 9.4 Immature Gran % (Auto) 0.600 Neut % (Auto) 69.6 Lymph % (Auto) 15.8 L Hawkins % (Auto) 7.9 Eos % (Auto) 5.6 H Baso % (Auto) 0.5 Absolute Neuts (auto) 6.6 Absolute Lymphs (auto) 1.50 Nucleated RBC % 0 Sodium 138 Potassium 5.0 Chloride 107 Carbon Dioxide 27.0 Anion Gap 5 BUN 79 H Creatinine 1.70 H Estim Creat Clear Calc 38.34 Est GFR (MDRD) Af Amer 52 L Est GFR (MDRD) Non-Af 43 L BUN/Creatinine Ratio 46.5 H Glucose 136 H Calcium 8.3 L Total Bilirubin 0.30 AST 20 ALT 25 Alkaline Phosphatase 324 H Troponin I High Sens 30 29 Total Protein 7.1 Albumin 1.8 L Globulin 5.3 H Albumin/Globulin Ratio 0.3 L ABG Data ABG results: ABG 10/27/24 07:28 Specimen Type MARIE Sample Site Not entered O2 % 5.0 VBG pH 7.36 VBG pO2 28 VBG HCO3 29 H VBG Total CO2 30 VBG O2 Sat (Calc) 48 L VBG Base Excess 3 POC Mix VBG pCO2 Pt Tmp 50.6 O2 Delivery Device Cannula Radiography Diagnostic Testing: Clinical Impression(s) from Imaging Studies Chest X-Ray 10/27/24 07:20 IMPRESSION: Grossly stable bilateral pleural effusions associated with new bibasilar opacities which may be secondary to pneumonia and/or atelectasis. Electronically Signed: Wanda Bradley MD at 10:36 EST , Discharge Plan Triage Chief Complaint: Syncope ED Provider: José Manuel Galloway Dx/Rx/DC Orders Clinical Impression: Syncope, Mental status change resolved Instructions: ED Fainting, Uncertain Cause Prescriptions: No Action aspirin 81 mg tablet,delayed release (DR/EC) 81 mg PO DAILY albuterol sulfate 2.5 mg /3 mL (0.083 %) Solution For Nebulization 2.5 mg inhalation Q2H PRN PRN (Reason: SOB &/OR WHEEZING) Qty: 0 0RF Mucinex DM 30-600 mg Tablet Extended Release 12 Hr 2 tab PO BID Qty: 0 0RF hydralazine 10 mg Tablet 10 mg G-tube TID Qty: 0 0RF ipratropium-albuterol 0.5 mg-3 mg(2.5 mg base)/3 mL Solution For Nebulization 3 ml inhalation Q4H.RT PRN (Reason: Shortness Of Breath) Qty: 0 0RF isosorbide mononitrate 30 mg Tablet Extended Release 24 Hr 30 mg PO DAILY Qty: 0 0RF tamsulosin 0.4 mg Capsule 0.4 mg PO DAILY@1730 Qty: 0 0RF insulin lispro [Humalog KwikPen Insulin] 100 unit/mL Insulin Pen See Protocol subcut Q6 Qty: 0 0RF Protocol: 3. Sliding Scale Insulin Med Dosing Condition: 150-189 mg/dl = 1 unit Condition: 190-229 mg/dl = 2 units Condition: 230-269 mg/dl = 3 units Condition: 270-309 mg/dl = 4 units Condition: 310-349 mg/dl = 5 units Condition: 350-399 mg/dl = 6 units Condition: 400-449 mg/dl = 7 units Condition: Greater than 449 call physician Protocol Text: Suggested for: - Patients on Total Daily Insulin Dose of 37-55 units - Obese, infected, or steroid patients MEDIUM DOSING ALGORITHIM metoprolol tartrate 25 mg Tablet 25 mg G-tube BID Qty: 0 0RF bisacodyl [Dulcolax (bisacodyl)] 10 mg suppository 10 mg MA DAILY PRN (Reason: constipation) (DME) FreeStyle Curtis 2 [place]cloud [facility] [place] Instructions .ROUTE Rx Instructions: As directed gabapentin 300 mg capsule 900 mg PO BID furosemide 40 mg Tablet 40 mg PO DAILY Qty: 0 0RF melatonin 3 mg Tablet 3 mg PO QHS PRN PRN (Reason: Insomnia) Qty: 0 0RF acetaminophen 500 mg Tablet 1,000 mg PO Q8 Qty: 0 0RF SPS (with sorbitol) 15-20 gram/60 mL Suspension 60 ml PO QWEEK 56 Days Qty: 480 0RF magnesium hydroxide [Dulcolax (magnesium hydroxide)] 400 mg/5 mL suspension 30 ml PO DAILY PRN (Reason: constipation) multivitamin [Daily Multi-Vitamin] Tablet 1 tab PO DAILY Primary Care Provider: Chris Umaña Referrals: Chris Umaña MD [Primary Care Provider] - As soon as possible Activity Restrictions/Additional Instructions: Continue your previous routines and medications. Print Language: Macedonian Disposition Disposition: [facility] Discharge Location: [facility]
--- NOTE | 2024-10-27 07:20 | RAD_ITS ---
INDICATION: Shortness of breath EXAMINATION/TECHNIQUE: X-RAY - XR Chest 1 View COMPARISON: October 18, 2024 FINDINGS: LINES/DEVICES: None. LUNGS: There are low lung volumes. There are grossly stable bilateral pleural effusions. There are new bibasilar ill-defined opacities. No pneumothorax. MEDIASTINUM AND CARDIOVASCULAR STRUCTURES: Cardiac silhouette not enlarged. Central airways and mediastinal contour are unremarkable. BONES AND SOFT TISSUES: Unremarkable. RAD/Chest 1 View (Portable) IMPRESSION: Grossly stable bilateral pleural effusions associated with new bibasilar opacities which may be secondary to pneumonia and/or atelectasis. Electronically Signed: Wanda Bradley MD at 10:36 EST ,
[2024-10-27 07:27] LABS: Absolute Neutrophil Count 6.6 X10^3/uL (2.0-7.7); Basophil# 0.05 X10^3/uL; Basophil% 0.5 % (0-1); Eosinophil# 0.53 X10^3/uL; Eosinophils% 5.6 % (0-5); Hematocrit 24.6 % (40-54); Hemoglobin 7.6 g/dL (13.0-16.5); Lymphocyte % 15.8 % (19-41); Mean Corp Hgb Conc 30.9 g/dL (32-36); Mean Corpuscular Hgb 28.1 pg (27.0-32.0); Mean Corpuscular Volume 91.1 fL (80-94); Mean Platelet Vol. 9.4 fl (6.2-12.0); Monocyte# 0.75 X10^3/uL; Monocyte% 7.9 % (0-10); NRBC Flagged by Analyzer 0 % (0-5); Neutrophil # 6.58 X10^3/uL (2.7-7.7); Neutrophil % 69.6 % (47-70); Platelet Count 293 K/mm3 (150-450); RBC Distribution Width CV 15.2 % (11.6-14.6); RBC Distribution Width SD 50.1 fl (35.1-43.9); White Blood Count 9.5 K/mm3 (4.4-11.0)
[2024-10-27 07:34] LABS: Blood Gas Specimen Type VEN; O2 Delivery Device Cannula; SITE Not entered; VBG BASE EXCESS 3 mmol/L (-1.0-3.5); VBG Bicarbonate 29 mmol/L (22-26); VBG PO2 28 mmHg (25-40); VBG SO2 48 % (50-70); VBG TCO2 30 mmol/L (23-33); VBG pCO2 50.6 mmHg (41-51); VBG pH 7.36 (7.32-7.42)
[2024-10-27 07:41] LABS: ALB/GLOB Ratio 0.3 RATIO (0.9-2.4); AST(SGOT) 20 U/L (15-37); Alanine Aminotransfer ALT/SGPT 25 U/L (16-61); Albumin, Serum 1.8 g/dL (3.2-5.0); Alkaline Phosphatase 324 U/L (45-117); Anion Gap 5 (5-15); BUN 79 mg/dL (7-18); BUN/Creat Ratio 46.5 RATIO (10-20); Calcium,Total 8.3 mg/dL (8.5-10.1); Chloride 107 mmol/L (98-107); EST Glomerular Filtration Rate 43 mL/min (>60); Est Glom Filt Rate - Afr Amer 52 mL/min (>60); Estimated Creatinine Clearance 38.34 ml/min; Globulin 5.3 g/dL (2.2-4.2); Glucose 136 mg/dL (74-106); Protein, Total 7.1 g/dL (6.4-8.2); Sodium Level 138 mmol/L (136-145); Troponin-I HS (w/2H Reflex) 30 pg/mL (3.0-78.0)
[2024-10-27 09:18] LABS: Reflex Troponin-HS? (from REC) Y
[2024-10-27 10:10] LABS: Troponin-I HS 29 pg/mL (3.0-78.0)
--- NOTE | 2024-10-27 11:12 | ED.RN ---
pt expresses concern wiht care at [facility]. pt concerned they are not caring well for him and he stated to this rn that he did not want to be there anymore. this rn notifies NASIR Montalvo. Katia to stop in to visit with patient
--- NOTE | 2024-10-27 11:55 | CM.ED ---
Social Work: Date of referral: 11/07/2024 Reason for referral: Discharge planning Referred by: ED nurse latex foam worker was requested to consult with patient by ED nurse as patient was demonstrating agitation and verbalizing dissatisfaction with current placement at [facility]. Patient provided consent for visit and stated the facility is trying to take his social security check and also stated he had been doing fine until a few days ago when the facility started reporting that he had been having times where he was passing out for brief times which patient stated he doesn't remember or believe. Patient stated he has a desire to return home. Patient stated he lives with his brother Carroll and wants to go back home. Patient called Carroll while social sciences instructor was in the room and patient asked Carroll to come pick him up which Carroll agreed to. (11:22) latex foam worker collaborated with patient's doctor who stated he will not discharge patient to home from the ED as patient is on oxygen and does not have any at his home. Patient would have to be discharged back to [facility] and would have to leave AMA if patient so desires. (11:30) latex foam worker updated patient, patient was agreeable and called his brother Carroll again and asked Carroll to meet him at [facility] instead of coming to the hospital which Carroll stated he would do. Plan: Patient to be discharged to [facility]. latex foam worker provided education on safe discharging and concern for leaving AMA. Patient verbalized he understood potential risks. latex foam worker encouraged to discuss plan further with medical doctor. (11:54) Katia Monroy, VEHICLE DISMANTLER, [employer]
== END 2024-10-27 12:17 | disposition skilled nursing facility (03) ==
PROVIDERS: Emergency Provider Emergency Medicine; PCP Family Medicine; Visit Provider Emergency Medicine
DX: R55 Syncope and collapse (principal); I50.9 Heart failure, unspecified; E11.22 Type 2 diabetes mellitus with diabetic chronic kidney disease; N18.32 Chronic kidney disease, stage 3b; Z87.891 Personal history of nicotine dependence; J45.909 Unspecified asthma, uncomplicated
CPT/HCPCS: 71045; 80053; 82803; 84484; 85025; 93005; 99285; A4216

== ENCOUNTER 2024-10-27 19:43 | Inpatient (IN) | payer OTHER, SELFPAY ==
[2024-10-27] VITALS (7 sets, daily range): BP systolic 119–145; BP diastolic 60–67; PULSE 64–69; RESP 16–99; TEMP 36.6; O2SAT 88–99; BMI 22.6; BMI 21.3
--- NOTE | 2024-10-27 20:21 | EDS_ITS ---
HPI <JAY Archibald - Last Filed: 10/27/24 21:43> History of Present Illness Chief Complaint: Edema Narrative Narrative: 69-year-old male presents with concern for bilateral lower extremity edema. He states he had cardiac arrest and MIs in September 2024. He had CPR and sustained multiple rib fractures. He went to the [facility] for rehab and was there for several weeks. At the [facility] he reportedly had a brief syncopal episode this morning and was seen at [place] [facility] with a negative workup. He refused to go back to the [facility] and his brother picked him up. He went home and was hanging out with his family and watching football. He states throughout the day his ankles and feet gradually became more swollen. He states he was prescribed medications from the ER but he does not know what they are and he has not picked them up yet. He has been wearing oxygen since his discharge after the cardiac arrest. He does not know how many liters. He does not have oxygen since he went home from the ED. He states his brother has been in contact with their insurance lady who will get the oxygen for them tomorrow. [facility] <JAY Archibald - Last Filed: 10/27/24 21:43> [facility] Medical History Chronic respiratory failure Decubitus ulcer of right buttock, stage 3 Decubitus ulcer of left buttock, 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 Diabetes mellitus, type 2 History of pneumothorax Nonischemic cardiomyopathy Medical non-compliance Congestive heart failure PFO (patent foramen ovale) Cardiac arrest Nephrotic syndrome History of COVID-19 Diabetes Home Medications ?Medication ?Instructions ?Recorded ?Last Taken ?Type aspirin 81 mg tablet,delayed 81 mg PO DAILY 09/17/24 09/17/24 History release albuterol sulfate 2.5 mg/3 mL 2.5 mg (3 mL) inhalation Q2H PRN 10/02/24 Unknown Rx (0.083 %) solution for nebulization PRN SOB &/OR WHEEZING #0 mL dextromethorphan-guaifenesin 30 2 tab PO BID #0 tabs 10/02/24 Unknown Rx mg-600 mg tablet extended [id number] hr (Mucinex DM) hydralazine 10 mg tablet 10 mg G-tube TID #0 tabs 10/02/24 Unknown Rx insulin lispro 100 unit/mL See Protocol subcut Q6 #0 mL 10/02/24 Unknown Rx subcutaneous pen (Humalog KwikPen (U-100) Insulin) ipratropium 0.5 mg-albuterol 3 mg 3 ml inhalation Q4H.RT PRN 10/02/24 Unknown Rx (2.5 mg base)/3 mL nebulization Shortness Of Breath #0 mL soln isosorbide mononitrate 30 mg 30 mg PO DAILY #0 tabs 10/02/24 Unknown Rx tablet,extended release 24 hr metoprolol tartrate 25 mg tablet 25 mg G-tube BID #0 tabs 10/02/24 Unknown Rx tamsulosin 0.4 mg capsule 0.4 mg PO DAILY@1730 #0 caps 10/02/24 Unknown Rx bisacodyl 10 mg rectal suppository 10 mg IA DAILY PRN constipation 10/17/24 Unknown History (Dulcolax (bisacodyl)) flash glucose scanning reader 10/17/24 Unknown History (FreeSassoryle Curtis 2 [place]) gabapentin 300 mg capsule 900 mg PO BID 10/17/24 Unknown History acetaminophen 500 mg tablet 1,000 mg (2 x 500 mg) PO Q8 #0 tabs 10/22/24 Unknown Rx furosemide 40 mg tablet 40 mg PO DAILY #0 tabs 10/22/24 Unknown Rx melatonin 3 mg tablet 3 mg PO QHS PRN PRN Insomnia #0 10/22/24 Unknown Rx tabs sodium polystyrene sulfonate 15 60 ml PO QWEEK 8 weeks #480 mL 10/22/24 Unknown Rx gram-sorbitol 20 gram/60 mL oral susp (SPS (with sorbitol)) magnesium hydroxide 400 mg/5 mL 30 ml PO DAILY PRN constipation 10/27/24 Unknown History oral suspension (Dulcolax (magnesium hydroxide)) multivitamin (Daily Multi-Vitamin 1 tab PO DAILY 10/27/24 Unknown History tablet) Allergy/AdvReac Type Severity Reaction Status Date / Time No Known Allergies Allergy Verified 10/27/24 19:48 Surgical History S/P percutaneous endoscopic gastrostomy (PEG) tube placement History of thoracentesis H/O chest tube placement Hx of thumb surgery Social History [facility] Smoking Status: Former smoker alcohol intake: never substance use type: does not use ROS <JAY Archibald - Last Filed: 10/27/24 21:43> ROS ED ROS Narrative Constitutional: Negative for fever, chills, malaise. CVS: Negative for palpitations, chest pain, syncope. Respiratory: Negative for shortness of breath, cough. GI: Negative for abdominal pain, nausea, vomiting. Musc: Positive for lower extremity edema. EXAM <JAY Archibald - Last Filed: 10/27/24 21:43> Physical Exam Narrative Exam Narrative: CONST: Patient sitting in no acute distress. EYES: Normal inspection. NECK: Normal inspection. RESP: No respiratory distress, CTAB. On 2 L NC. CVS: Regular rate and rhythm, no murmur, no gallop. SKIN: Color normal, no rash, warm, dry, intact. EXTREMITIES: Normal appearance, trace symmetric pedal edema, 2+ DP pulses. NEURO: Alert and answering questions appropriately. PSYCH: Normal affect. Const Vital Signs: 10/27/24 19:44 10/27/24 19:48 10/27/24 19:49 Temperature 98 F Temperature Source Temporal Pulse Rate 69 Respiratory Rate 16 Respiratory Effort Normal Non-Labored Respiratory Pattern Normal Blood Pressure 119/65 Blood Pressure Mean 83 Pulse Ox 88 93 Oxygen Delivery Method Nasal Cannula Nasal Cannula Oxygen Flow Rate (L/min) 4 5 10/27/24 21:28 Temperature 98 F Temperature Source Pulse Rate 66 Respiratory Rate 18 Respiratory Effort Respiratory Pattern Blood Pressure 145/62 H Blood Pressure Mean 89 Pulse Ox 97 Oxygen Delivery Method Oxygen Flow Rate (L/min) <Dr. Pastor Simoen, DO - Last Filed: 10/27/24 21:55> Physical Exam Const Vital Signs: 10/27/24 19:44 10/27/24 19:48 10/27/24 19:49 Temperature 98 F Temperature Source Temporal Pulse Rate 69 Respiratory Rate 16 Respiratory Effort Normal Non-Labored Respiratory Pattern Normal Blood Pressure 119/65 Blood Pressure Mean 83 Pulse Ox 88 93 Oxygen Delivery Method Nasal Cannula Nasal Cannula Oxygen Flow Rate (L/min) 4 5 10/27/24 21:28 Temperature 98 F Temperature Source Pulse Rate 66 Respiratory Rate 18 Respiratory Effort Respiratory Pattern Blood Pressure 145/62 H Blood Pressure Mean 89 Pulse Ox 97 Oxygen Delivery Method Oxygen Flow Rate (L/min) [facility] <JAY Archibald - Last Filed: 10/27/24 21:43> [facility] Narrative Medical decision making narrative: 69-year-old male had a full evaluation here this morning after a reported syncopal episode at the [facility]. He returned concerned he developed bilateral lower extremity edema throughout the evening. He has symmetric trace edema of both ankles. There is no erythema or warmth. He is neurovascularly intact. I reviewed blood work from this morning which shows that he has stable anemia at 7.6. Creatinine is 1.71 which is his baseline. He had unremarkable chemistries. Troponins x 2 were negative. Chest x-ray showed stable pleural effusions and new bibasilar opacities which could be atelectasis and/or pneumonia. This was felt to be atelectasis as patient has no fever, cough, or leukocytosis. I ordered a new BMP and IV Lasix 40 mg. Potassium is slightly elevated at 5.2 which come down with Lasix. Creatinine 1.86. Patient was trialed on room air and dropped to 83% so he was placed back on 2 L. This is not a new oxygen requirement?he has been wearing oxygen since he had rib fractures in September. He left the [facility] without a plan of how to obtain home oxygen or his medications. I discussed that he cannot be safely discharged home. He refuses to [facility] to [facility]. Case will be discussed with the hospitalist for admission. Lab Data Attestation: I reviewed the patient's lab results. Labs: Laboratory Results - last 24 hr 10/27/24 19:55 Sodium 135 L Potassium 5.2 H Chloride 102 Carbon Dioxide 27.0 Anion Gap 5 BUN 81 H Creatinine 1.86 H Estim Creat Clear Calc 34.73 Est GFR (MDRD) Af Amer 47 L Est GFR (MDRD) Non-Af 38 L BUN/Creatinine Ratio 43.5 H Glucose 167 H Calcium 8.6 <Dr. Pastor Simeon, - Last Filed: 10/27/24 21:55> [facility] Lab Data Labs: Laboratory Results - last 24 hr 10/27/24 19:55 Sodium 135 L Potassium 5.2 H Chloride 102 Carbon Dioxide 27.0 Anion Gap 5 BUN 81 H Creatinine 1.86 H Estim Creat Clear Calc 34.73 Est GFR (MDRD) Af Amer 47 L Est GFR (MDRD) Non-Af 38 L BUN/Creatinine Ratio 43.5 H Glucose 167 H Calcium 8.6 Treatment and Re-Evaluation :: I have personally performed a face to face assessment of the patient and have reviewed the NAV Note. I performed a substantive portion of the visit including all aspects of the following. My jernigan findings include: History: Patient presents with lower extremity swelling that became worse today. Patient was seen here earlier today for this. Patient states it is gotten worse. Patient states he has a history of heart failure. Patient is on oxygen at home. Patient does not know how much oxygen he is on. Patient denies any fevers or chills. Patient denies any nausea or vomiting. Exam: Vital signs are stable. Patient is afebrile. Patient is in no acute distress. Oral mucosa is pink and moist. Neck is supple. Trachea is midline. There is no JVD. Heart was regular rate and rhythm. Lungs showed some expiratory wheezing. There is good respiratory effort noted. Abdomen is soft. Bowel sounds are normal. There is no tenderness. Cranial nerves II through XII are intact. There are no focal motor or sensory deficits noted. There is 1+ edema of the distal lower legs bilaterally. There is no calf tenderness. Medical Decision Making: Differential diagnosis includes peripheral edema, acute kidney injury, electrolyte abnormality, and congestive heart failure. Basic metabolic profile will be obtained to assess for electrolyte abnormality and acute kidney injury. Patient had lab work drawn earlier today. And I do not feel any other lab work needs to be repeated at this time. Patient did have a chest x-ray earlier today. There is no acute evidence of congestive heart failure or pneumonia. Patient was given a dose of Lasix here. Basic metabolic profile was reviewed. Potassium was slightly elevated at 5.2. This will improve after Lasix. Patient was given a trial on room air and dropped to 83%. Patient was restarted back on oxygen at 2 L nasal cannula. Patient was advised of the need for admission for hypoxia. Patient initially did not want to be admitted but is now agreeable. Case was discussed with the hospitalist. He will admit the patient to his service. Patient understood and was agreeable with the plan. All questions were answered. Discharge Plan Triage Chief Complaint: Edema ED Midlevel Provider: Lyndsey Lopez ED Provider: Pastor Simeon Dx/Rx/DC Orders Clinical Impression: Bilateral lower extremity edema, Hypoxia, Chronic kidney disease, Acute hyperkalemia, Chronic anemia Prescriptions: No Action aspirin 81 mg tablet,delayed release (DR/EC) 81 mg PO DAILY albuterol sulfate 2.5 mg /3 mL (0.083 %) Solution For Nebulization 2.5 mg inhalation Q2H PRN PRN (Reason: SOB &/OR WHEEZING) Qty: 0 0RF Mucinex DM 30-600 mg Tablet Extended Release 12 Hr 2 tab PO BID Qty: 0 0RF hydralazine 10 mg Tablet 10 mg G-tube TID Qty: 0 0RF ipratropium-albuterol 0.5 mg-3 mg(2.5 mg base)/3 mL Solution For Nebulization 3 ml inhalation Q4H.RT PRN (Reason: Shortness Of Breath) Qty: 0 0RF isosorbide mononitrate 30 mg Tablet Extended Release 24 Hr 30 mg PO DAILY Qty: 0 0RF tamsulosin 0.4 mg Capsule 0.4 mg PO DAILY@1730 Qty: 0 0RF insulin lispro [Humalog KwikPen Insulin] 100 unit/mL Insulin Pen See Protocol subcut Q6 Qty: 0 0RF Protocol: 3. Sliding Scale Insulin Med Dosing Condition: 150-189 mg/dl = 1 unit Condition: 190-229 mg/dl = 2 units Condition: 230-269 mg/dl = 3 units Condition: 270-309 mg/dl = 4 units Condition: 310-349 mg/dl = 5 units Condition: 350-399 mg/dl = 6 units Condition: 400-449 mg/dl = 7 units Condition: Greater than 449 call physician Protocol Text: Suggested for: - Patients on Total Daily Insulin Dose of 37-55 units - Obese, infected, or steroid patients MEDIUM DOSING ALGORITHIM metoprolol tartrate 25 mg Tablet 25 mg G-tube BID Qty: 0 0RF bisacodyl [Dulcolax (bisacodyl)] 10 mg suppository 10 mg IA DAILY PRN (Reason: constipation) (DME) FreeStyle Curtis 2 [place] Misc See Rx Instructions .ROUTE Rx Instructions: As directed gabapentin 300 mg capsule 900 mg PO BID furosemide 40 mg Tablet 40 mg PO DAILY Qty: 0 0RF melatonin 3 mg Tablet 3 mg PO QHS PRN PRN (Reason: Insomnia) Qty: 0 0RF acetaminophen 500 mg Tablet 1,000 mg PO Q8 Qty: 0 0RF SPS (with sorbitol) 15-20 gram/60 mL Suspension 60 ml PO QWEEK 56 Days Qty: 480 0RF magnesium hydroxide [Dulcolax (magnesium hydroxide)] 400 mg/5 mL suspension 30 ml PO DAILY PRN (Reason: constipation) multivitamin [Daily Multi-Vitamin] Tablet 1 tab PO DAILY Primary Care Provider: Chris Umaña Referrals: Chris Umaña MD [Primary Care Provider] - Print Language: Bulgarian
[2024-10-27] MEDS: Furosemide 40 MG/4 ML Vial IV (20:49)
[2024-10-27 21:16] LABS: Anion Gap 5 (5-15); BUN 81 mg/dL (7-18); BUN/Creat Ratio 43.5 RATIO (10-20); Calcium,Total 8.6 mg/dL (8.5-10.1); Chloride 102 mmol/L (98-107); Creatinine, Serum 1.86 mg/dL (0.70-1.30); EST Glomerular Filtration Rate 38 mL/min (>60); Est Glom Filt Rate - Afr Amer 47 mL/min (>60); Estimated Creatinine Clearance 34.73 ml/min; Glucose 167 mg/dL (74-106); Potassium 5.2 mmol/L (3.5-5.1); Sodium Level 135 mmol/L (136-145)
--- NOTE | 2024-10-27 21:37 | PCM.HP.STD ---
HPI - General General Date of Admission: 10/27/24 Date of Service: 10/27/24 Chief Complaint: Worsening lower extremity swelling with mild shortness of breath HPI Narrative ZOE MENDEZ, is a 69 M who presented to [facility] on 10/27/2024 with worsening lower extremity swelling and mild shortness of breath. Patient was recently hospitalized here from 09/17-10/02/24 and then again from 10/18-10/22/24, see discharge summaries for further details. In short, patient had multiple short cardiac arrests secondary to profound bradycardia from possible vasovagal events. Echo in September showed EF 35%, stage II diastolic dysfunction and severe global hypokinesis of the LV. Patient was ultimately discharged to [facility] on 10/02. He then represented here on 10/18 for hyperkalemia. Hyperkalemia improved with medical treatment and he was able to be discharged back to the [facility] on 10/22. This hospitalizations were complicated by bilateral pleural effusions with need for chest tube in September and with bilateral thoracenteses in October, and dysphagia with PEG tube placement. Patient completed modified barium study prior to discharge in 10/22 and did well, has been tolerating regular solids with nectar thick liquids diet well. He came back into the ED here on the morning of 10/27 for a reported syncopal episode. Workup was largely benign and patient opted to be discharged home from the ED rather than back to the [facility]. At home he noticed that his legs are becoming more swollen and he had mild shortness of breath with ambulation. He notably was wearing supplemental oxygen at the [facility] but stated this would not be set up at his house until 10/28. He also had not picked up any medications yet that he was taking at the [facility]. He then came back into the ED this evening. On arrival to the ED he was hemodynamically stable on room air at rest. However with ambulation his oxygen saturation dropped to the low 80s. Labs were at baseline but notably patient's albumin level was down to 1.8. Chest x-ray showed grossly stable bilateral pleural effusions with new bibasilar opacities likely secondary to atelectasis. Because of the volume overload with hypoxia, hospitalist was contacted for admission. I saw the patient at bedside in the ED. Patient was breathing comfortably on 2 L nasal cannula at rest with saturations in the mid to high 90s. Noted that his legs felt more swollen than this morning but otherwise he was doing fine. Patient generally seemed to have poor insight into his medical condition or treatment plan. Will be admitted for further management. [facility] Medical History Chronic respiratory failure Decubitus ulcer of right buttock, stage 3 Decubitus ulcer of left buttock, 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 Diabetes mellitus, type 2 History of pneumothorax Nonischemic cardiomyopathy Medical non-compliance Congestive heart failure PFO (patent foramen ovale) Cardiac arrest Nephrotic syndrome History of COVID-19 Diabetes Home Medications ?Medication ?Instructions ?Recorded ?Last Taken ?Type aspirin 81 mg tablet,delayed 81 mg PO DAILY 09/17/24 09/17/24 History release albuterol sulfate 2.5 mg/3 mL 2.5 mg (3 mL) inhalation Q2H PRN 10/02/24 Unknown Rx (0.083 %) solution for nebulization PRN SOB &/OR WHEEZING #0 mL dextromethorphan-guaifenesin 30 2 tab PO BID #0 tabs 10/02/24 Unknown Rx mg-600 mg tablet extended [id number] hr (Mucinex DM) hydralazine 10 mg tablet 10 mg G-tube TID #0 tabs 10/02/24 Unknown Rx insulin lispro 100 unit/mL See Protocol subcut Q6 #0 mL 10/02/24 Unknown Rx subcutaneous pen (Humalog KwikPen (U-100) Insulin) ipratropium 0.5 mg-albuterol 3 mg 3 ml inhalation Q4H.RT PRN 10/02/24 Unknown Rx (2.5 mg base)/3 mL nebulization Shortness Of Breath #0 mL soln isosorbide mononitrate 30 mg 30 mg PO DAILY #0 tabs 10/02/24 Unknown Rx tablet,extended release 24 hr metoprolol tartrate 25 mg tablet 25 mg G-tube BID #0 tabs 10/02/24 Unknown Rx tamsulosin 0.4 mg capsule 0.4 mg PO DAILY@1730 #0 caps 10/02/24 Unknown Rx bisacodyl 10 mg rectal suppository 10 mg PA DAILY PRN constipation 10/17/24 Unknown History (Dulcolax (bisacodyl)) flash glucose scanning reader 10/17/24 Unknown History (FreeStyle Curtis 2 [place]) gabapentin 300 mg capsule 900 mg PO BID 10/17/24 Unknown History acetaminophen 500 mg tablet 1,000 mg (2 x 500 mg) PO Q8 #0 tabs 10/22/24 Unknown Rx furosemide 40 mg tablet 40 mg PO DAILY #0 tabs 10/22/24 Unknown Rx melatonin 3 mg tablet 3 mg PO QHS PRN PRN Insomnia #0 10/22/24 Unknown Rx tabs sodium polystyrene sulfonate 15 60 ml PO QWEEK 8 weeks #480 mL 10/22/24 Unknown Rx gram-sorbitol 20 gram/60 mL oral susp (SPS (with sorbitol)) magnesium hydroxide 400 mg/5 mL 30 ml PO DAILY PRN constipation 10/27/24 Unknown History oral suspension (Dulcolax (magnesium hydroxide)) multivitamin (Daily Multi-Vitamin 1 tab PO DAILY 10/27/24 Unknown History tablet) Allergy/AdvReac Type Severity Reaction Status Date / Time No Known Allergies Allergy Verified 10/27/24 19:48 Surgical History S/P percutaneous endoscopic gastrostomy (PEG) tube placement History of thoracentesis H/O chest tube placement Hx of thumb surgery Social History housing: senior living Smoking Status: Former smoker alcohol intake: never substance use type: does not use ROS Constitutional Constitutional: Denies chills, fatigue, fever(s) or weakness Cardiovascular Cardiovascular: Reports dyspnea on exertion and edema; Denies chest pain, lightheadedness, palpitations, rapid heart rate or syncope Respiratory/Chest Respiratory/Chest: Reports shortness of breath with exertion; Denies cough, productive cough, shortness of breath at rest or wheezing Gastrointestinal Gastrointestinal: Denies abdominal pain Vital Signs Vital Signs Vital Signs: 10/27/24 19:44 10/27/24 19:48 10/27/24 19:49 Temperature 98 F Temperature Source Temporal Pulse Rate 69 Respiratory Rate 16 Respiratory Effort Normal Non-Labored Respiratory Pattern Normal Blood Pressure 119/65 Blood Pressure Mean 83 Pulse Ox 88 93 Oxygen Delivery Method Nasal Cannula Nasal Cannula Oxygen Flow Rate (L/min) 4 5 10/27/24 21:28 Temperature 98 F Temperature Source Pulse Rate 66 Respiratory Rate 18 Respiratory Effort Respiratory Pattern Blood Pressure 145/62 H Blood Pressure Mean 89 Pulse Ox 97 Oxygen Delivery Method Oxygen Flow Rate (L/min) Weight Weight: 65.5 kg Body Mass Index (BMI) 22.6 Physical Exam Const alert, oriented x3, no apparent distress and average body habitus Constitutional Narrative: Elderly male, thin and somewhat chronically ill-appearing, mildly fatigued appearing, otherwise sitting up comfortably in bed, answering questions appropriately, in no acute distress. General Appearance: cooperative and comfortable HEENT normocephalic, head/scalp atraumatic, hearing grossly normal bilaterally, nasal mucous membranes and turbinates normal and moist oral mucous membranes Eyes PERRL, EOMs intact bilaterally and conjunctivae normal Neck full ROM Chest inspection of chest normal Resp normal respiratory effort and no use of accessory muscles Resp Narrative: Decreased breath sounds in bilateral lung bases with mild crackles noted. Otherwise good air movement in mid to upper lung zones with no wheezing noted. Cardio regular rate, regular rhythm, no murmurs and peripheral pulses 2+ throughout GI normal to inspection, nondistended, normoactive bowel sounds, soft to palpation, non-tender and non-distended GI Narrative: PEG tube in place, site appears clean and dry. Back/Spine normal ROM Extremity full ROM Extremity Narrative: +2-3 lower extremity pitting edema noted. Skin no rashes or lesions noted Neuro moves all extremities and no focal motor deficits Speech: speech normal Motor Exam: strength 5/5 throughout Psych mental status grossly normal Results Lab / Micro Data 10/27/24 19:55 Labs: Laboratory Results - last 24 hr 10/27/24 19:55: Sodium 135 L, Potassium 5.2 H, Chloride 102, Carbon Dioxide 27.0, Anion Gap 5, BUN 81 H, Creatinine 1.86 H, Estim Creat Clear Calc 34.73, Est GFR (MDRD) Af Amer 47 L, Est GFR (MDRD) Non-Af 38 L, BUN/Creatinine Ratio 43.5 H, Glucose 167 H, Calcium 8.6 Assessment & Plan Assessment/Plan (1) Acute HFrEF (heart failure with reduced ejection fraction): (2) Bilateral lower extremity edema: (3) Hypoxia: PLAN: Plan Patient is a 69-year-old male who presented to [facility] ED on 10/27/2024 with worsening lower extremity edema and mild shortness of breath with exertion. 1. Acute HFrEF exacerbation with hypoxia and recurrent bilateral pleural effusions ? Admit under patient status to PCU. Suspect mild exacerbation with low albumin from malnutrition also contributing. Chest x-ray on admit showed stable bilateral pleural effusions with vascular congestion. Requiring 3 L nasal cannula with exertion to maintain appropriate oxygen saturations. Will treat with IV Lasix 40 mg every 8 hours for now, monitor daily BMP and urine output. Will likely be okay to transition back to p.o. diuretics in the next 1 to 2 days. Can consider radiology consult for thoracentesis as needed. Wean supplemental oxygen as able. Continue home aspirin, hydralazine, nitrate, and Lopressor. 2. Mild hyperkalemia ? Potassium 5.2 on admit. Potassium has been running between 5.0 and 5.5 on recent labs, suspect this is at baseline. Monitor. 3. CKD stage IIIb ? Creatinine 1.86 on admit, at baseline. Monitor daily BMP and urine output while on IV diuretics. 4. Severe malnutrition ? Albumin 1.8 on admit, BMI 21. Has had improving p.o. intake with escalation of diet in setting of dysphagia but remains malnourished, will add dietary supplements to meals while here. 5. Recent dysphagia s/p PEG tube placement ? Had PEG tube placement during September admission. Had modified barium swallow study done on 10/21 that showed only mild to moderate oropharyngeal dysphagia. Is now tolerating a regular solid and nectar thick liquid diet, will continue this. No need for speech therapy consult at this time. 6. Acute on chronic debility, improving ? PT/OT/case management consulted. Patient was at [facility] but would prefer to go home with home health care on discharge. 7. Anemia ? Anemia 7.6 on admit, stable from recent baseline. Chronic medical conditions: ? Hypertension: Continue home meds as above. ? Type 2 diabetes mellitus: Will treat with sign scale insulin with meals while inpatient. ? BPH with obstructive symptoms: Continue home Flomax. ? Peripheral neuropathy: Continue gabapentin at reduced dose of 300 mg 3 times daily. DVT prophylaxis: Heparin subcu CODE STATUS: Full code, verified Expected disposition: TBD Total clinical time spent by myself addressing the patient's medical issues, reviewing all the data, and collaborating with patient's care team: 75 minutes. Charges/Coding Visit Charges Inpatient E&M: 64997 Init Hosp L3
--- NOTE | 2024-10-27 22:41 | ED.RN ---
[facility]ITT[facility], ASKING IF THEY HAVE AVAILABILITY FOR PT. THEY SAID PT IS OK TO STAY AT OUR HOS[facility]. THEIR ONLY REQUEST WAS I FAX WORKUP WE DID TO THEM, WHICH I DID AT 1835
[2024-10-27] MEDS: Heparin Injection (Vial) 5,000 UNIT/ML VIAL 5000 UNIT SC (23:49)
[2024-10-27] MEDS: guaiFENesin/D-Methorphan TAB.SR.12H 2 TABLET PO (23:49)
[2024-10-27] MEDS: hydrALAZINE 10 MG Tablet GT (23:49)
[2024-10-27] MEDS: Metoprolol Tartrate 25 MG Tablet GT (23:50)
[2024-10-27] MEDS: Gabapentin 300 MG Capsule PO (23:52)
[2024-10-28] VITALS (14 sets, daily range): BP systolic 121–143; BP diastolic 53–64; PULSE 55–71; RESP 16–99; TEMP 36.2–36.6; O2SAT 90–99
[2024-10-28 04:40] LABS: Hematocrit 24.3 % (40-54); Hemoglobin 7.6 g/dL (13.0-16.5); Mean Corp Hgb Conc 31.3 g/dL (32-36); Mean Corpuscular Hgb 27.7 pg (27.0-32.0); Mean Corpuscular Volume 88.7 fL (80-94); Mean Platelet Vol. 9.1 fl (6.2-12.0); Platelet Count 310 K/mm3 (150-450); RBC Distribution Width SD 47.4 fl (35.1-43.9); Red Blood Count 2.74 M/mm3 (4.6-6.2); White Blood Count 9.1 K/mm3 (4.4-11.0)
[2024-10-28 04:55] LABS: Anion Gap 4 (5-15); BUN 82 mg/dL (7-18); BUN/Creat Ratio 46.9 RATIO (10-20); Calcium,Total 8.3 mg/dL (8.5-10.1); Chloride 104 mmol/L (98-107); Creatinine, Serum 1.75 mg/dL (0.70-1.30); EST Glomerular Filtration Rate 41 mL/min (>60); Est Glom Filt Rate - Afr Amer 50 mL/min (>60); Estimated Creatinine Clearance 34.77 ml/min; Glucose 127 mg/dL (74-106); Sodium Level 135 mmol/L (136-145)
[2024-10-28] MEDS: hydrALAZINE 10 MG Tablet PO ×3 (05:33→21:43)
[2024-10-28] MEDS: Gabapentin 300 MG Capsule PO ×3 (05:34→21:42)
[2024-10-28] MEDS: Furosemide 40 MG/4 ML Vial IV (05:34)
--- NOTE | 2024-10-28 08:58 | PCM.PN.HOSP ---
Reason for Visit Reason for Visit: Diagnoses Acute systolic (congestive) heart failure (10/27/24) Hypoxemia (10/27/24) Localized edema (10/27/24) Objective Data Objective Data Vital Signs: Vital Signs Temp Pulse Resp BP Pulse Ox O2 Del Method O2 Flow Rate 97.8 F 57 L 18 126/56 H 97 Nasal Cannula 2 10/28/24 06:13 10/28/24 06:13 10/28/24 06:13 10/28/24 06:13 10/28/24 07:15 10/28/24 07:15 10/28/24 07:15 Oxygen Flow Rate (L/min) 2 Oxygen Delivery Method Nasal Cannula Weight: 136 lb 0.403 oz Body Mass Index (BMI) 21.3 Intake & Output: Intake and Output for Last 24 Hours 10/26/24 10/27/24 10/28/24 23:59 23:59 23:59 Intake Total 400 / 400 Output Total 500 / 500 Balance -100 / -100 Lab / Micro Data 10/28/24 04:35 10/28/24 04:35 Labs: Laboratory Results - last 24 hr 10/27/24 19:55: Sodium 135 L, Potassium 5.2 H, Chloride 102, Carbon Dioxide 27.0, Anion Gap 5, BUN 81 H, Creatinine 1.86 H, Estim Creat Clear Calc 34.73, Est GFR (MDRD) Af Amer 47 L, Est GFR (MDRD) Non-Af 38 L, BUN/Creatinine Ratio 43.5 H, Glucose 167 H, Calcium 8.6 10/28/24 04:35: WBC 9.1, RBC 2.74 L, Hgb 7.6 L, Hct 24.3 L, MCV 88.7, MCH 27.7, MCHC 31.3 L, RDW Std Deviation 47.4 H, RDW Coeff of Agus 15.0 H, Plt Count 310, MPV 9.1, Sodium 135 L, Potassium 5.0, Chloride 104, Carbon Dioxide 27.0, Anion Gap 4 L, BUN 82 H, Creatinine 1.75 H, Estim Creat Clear Calc 34.77, Est GFR (MDRD) Af Amer 50 L, Est GFR (MDRD) Non-Af 41 L, BUN/Creatinine Ratio 46.9 H, Glucose 127 H, Calcium 8.3 L Physical Exam Narrative Seen and examined. Patient was recently discharged on 10/22/2024 and came back with increased leg swelling. Patient was sent home on oxygen. Patient also has pressure ulcer in back Physical General: Alert, Oriented x3, Cooperative HEENT: Atraumatic, PERRLA, EOMI, Normocephalic Oral: Oral mucosa dry no Gingival or Mucosal Lesions/ Ulcerations Neck: Supple, No JVD, Negative Carotid Bruits Chest wall/Lungs: Air entry diminished in bilateral lung bases. No crepitation/rhonchi Cardiovascular: Sinus rhythm, Normal S1, Normal S2, No M/G/R Abdomen: Bowel Sounds Present, Soft, Non Tender, Non-Distended : No dysuria. No renal angle tenderness. No suprapubic tenderness. Extremities: Mild edema, Capillary Refill Less than 3 Seconds Skin: Pressure ulcer Musculoskeletal: No Tenderness to Palpation of Joints or Extremities Neurological: Cranial nerves II-XII grossly intact, DTR 2+/4. No acute focal neurological deficit. Psych/Mental Status: Flat affect Assessment & Plan Assessment/Plan (1) Acute HFrEF (heart failure with reduced ejection fraction): (2) Bilateral lower extremity edema: (3) Hypoxia: PLAN: Plan Patient is a 69-year-old male who presented to [facility] ED on 10/27/2024 with worsening lower extremity edema and mild shortness of breath with exertion. 1. Acute HFrEF exacerbation with hypoxia and recurrent bilateral pleural effusions ? Admit under patient status to PCU. Suspect mild exacerbation with low albumin from malnutrition also contributing. Chest x-ray on admit showed stable bilateral pleural effusions with vascular congestion. Requiring 3 L nasal cannula with exertion to maintain appropriate oxygen saturations. Started on IV Lasix. Heart failure core measures including intake and output, fluid restriction less than 1500 mL, daily weight monitoring, kidney and electrolytes monitoring. Continue home aspirin, hydralazine, nitrate, and Lopressor. 10/28: On exam not significant swelling. IV furosemide changed to oral 40 mg twice daily. 2. Mild hyperkalemia ? Potassium 5.2 on admit. Potassium has been running between 5.0 and 5.5 on recent labs, suspect this is at baseline. Monitor. 10/28 repeat potassium is 5.0. 3. CKD stage IIIb ? Creatinine 1.86 on admit, at baseline. Monitor daily BMP and urine output while on IV diuretics. 10/28: Creatinine 1.75 on baseline. 4. Severe malnutrition ? Albumin 1.8 on admit, BMI 21. Patient had prolonged recent admission. Has had improving p.o. intake with escalation of diet in setting of dysphagia but remains malnourished, will add dietary supplements to meals while here. 5. Recent dysphagia s/p PEG tube placement ? Had PEG tube placement during September admission. Had modified barium swallow study done on 10/21 that showed only mild to moderate oropharyngeal dysphagia. Is now tolerating a regular solid and nectar thick liquid diet, will continue this. No need for speech therapy consult at this time. 6. Acute on chronic debility, improving ? PT/OT/case management consulted. [facility] but would prefer to go home with home health care on discharge. 7. Anemia ? Anemia 7.6 on admit, stable from recent baseline. Chronic medical conditions: ? Hypertension: Continue home meds as above. ? Type 2 diabetes mellitus: Will treat with sign scale insulin with meals while inpatient. ? BPH with obstructive symptoms: Continue home Flomax. ? Peripheral neuropathy: Continue gabapentin at reduced dose of 300 mg 3 times daily. DVT prophylaxis: Heparin subcu CODE STATUS: Full code, verified Expected disposition: TBD Charges/Coding Visit Charges Inpatient E&M: 14504 Subs Hosp L2
[2024-10-28] MEDS: Aspirin E.C. 81 MG Tablet PO (09:20)
[2024-10-28] MEDS: Heparin Injection (Vial) 5,000 UNIT/ML VIAL 5000 UNIT SC ×2 (09:20→21:42)
[2024-10-28] MEDS: guaiFENesin/D-Methorphan TAB.SR.12H 2 TABLET PO ×2 (09:21→21:44)
[2024-10-28] MEDS: Isosorbide Mononitrate 30 MG Tablet PO (09:21)
[2024-10-28] MEDS: Metoprolol Tartrate 25 MG Tablet PO ×2 (09:21→21:43)
--- NOTE | 2024-10-28 09:24 | WOUNDNOTE ---
wound photo: left buttock/sacrum
--- NOTE | 2024-10-28 10:17 | CASEMGMT ---
Social Work- SW participated in interdisciplinary rounds on pt. Pt is reported to be from home, but recently from [facility]. Pt was recently d/c from [facility] to [facility] on 10/22. SW called [facility] and spoke with Grace who reports that pt signed out AMA 10/27 due to not wanting to pay any co-pays and refusing to apply for [facility]. Pt reportedly came to ED after signing out AMA. Grace reports that pt has been very weak and a long ways from being ready to go home. It was also reported that pt has been non-compliant with treatment and nasty with staff frequently. SW updated RNCM and will follow for therapy recommendations to aide in discharge planning. MATTEO Morales
[2024-10-28 11:37] LABS: Bedside Glucose 138 mg/dL (74-106)
[2024-10-28 11:37] LABS: Bedside Glucose 107 mg/dL (74-106)
--- NOTE | 2024-10-28 13:14 | CASEMGMT ---
Readmission Note: Index: 10/18/24-10/22/24. Dx: hyperkalemia/metabolic acidosis Readmission: 10/27/24. Dx: CHF exacerbation with hypoxia From index admission, the patient [facility]. Per ICU rounds, the patient left AMA yesterday from the [facility]pc facility and did not picker tender any of his medications. See social work note. Later that evening, the patient came into the emergency department. The patient was admitted to the ICU for further management. Physical and occupational therapy state that the patient did not do well during the evaluation. This sales and marketing manager to the patient room at this time. Patient sitting up in the chair at bedside. Patient states that whenever he was home for a couple of hours he ? felt good.? However, the patient states that he noticed that his feet were swelling and wanted to come to the hospital for reevaluation due to the previous heart attacks he had gone through. Patient states that he lives at home with his brother and that his goal is to return home at the time of discharge. However, patient states that he was only able to go from the bed to the chair during the therapy session today. sales and marketing manager discussed if the patient would feel safe at home with his current limitations. Patient states that he would not as of now but is aware that he will be working with therapy daily to improve his strength. Patient states that he does not have any desire to return to the fpc facility. At this time, the patient states that he would prefer to go home with potential home healthcare versus going to any type of fpc facility. Patient states, ?My brother is currently working on getting home healthcare set up for me.? sales and marketing manager educated the patient that [facility] staff can help get healthcare established if needed. Pt states this is not needed at this time. Ultimately, the patient states that he is unsure of what he will need or want at the time of discharge. This RN CM anticipates fpc facility versus potential with home healthcare. Care management to follow patient progression with therapy to help decipher what a patient best qualifies for moving forward.
[2024-10-28] MEDS: Insulin Lispro 100 UNIT/ML INSULN.PEN SC (17:14)
[2024-10-28] MEDS: Tamsulosin HCl 0.4 MG Capsule PO (17:14)
[2024-10-28] MEDS: Furosemide 40 MG Tablet PO (17:15)
[2024-10-28 17:37] LABS: Bedside Glucose 155 mg/dL (74-106)
[2024-10-28] MEDS: Ipratropium/Albuterol Sulfate 3 ML AMPUL.NEB INHALATION (19:07)
[2024-10-28 22:10] LABS: Bedside Glucose 134 mg/dL (74-106)
[2024-10-29] VITALS (13 sets, daily range): BP systolic 133–141; BP diastolic 57–65; PULSE 51–64; RESP 16–21; TEMP 36.2–36.8; O2SAT 78–99; BMI 21.4
[2024-10-29] MEDS: Gabapentin 300 MG Capsule PO ×3 (06:03→22:35)
[2024-10-29] MEDS: hydrALAZINE 10 MG Tablet PO ×3 (06:03→22:36)
[2024-10-29 07:06] LABS: Absolute Lymphocyte Count 1.27 X10^3/uL (0.83-4.51); Absolute Neutrophil Count 5.9 X10^3/uL (2.0-7.7); Basophil# 0.03 X10^3/uL; Basophil% 0.4 % (0-1); Eosinophil# 0.36 X10^3/uL; Eosinophils% 4.4 % (0-5); Hematocrit 23.1 % (40-54); Hemoglobin 7.1 g/dL (13.0-16.5); Lymphocyte # 1.27 X10^3/ul (0.83-4.51); Lymphocyte % 15.4 % (19-41); Mean Corp Hgb Conc 30.7 g/dL (32-36); Mean Corpuscular Hgb 27.5 pg (27.0-32.0); Mean Corpuscular Volume 89.5 fL (80-94); Mean Platelet Vol. 9.4 fl (6.2-12.0); Monocyte# 0.61 X10^3/uL; Monocyte% 7.4 % (0-10); NRBC Flagged by Analyzer 0 % (0-5); Neutrophil # 5.92 X10^3/uL (2.7-7.7); Neutrophil % 71.9 % (47-70); Platelet Count 348 K/mm3 (150-450); RBC Distribution Width CV 14.7 % (11.6-14.6); RBC Distribution Width SD 47.6 fl (35.1-43.9); Red Blood Count 2.58 M/mm3 (4.6-6.2); White Blood Count 8.2 K/mm3 (4.4-11.0)
[2024-10-29] MEDS: Ipratropium/Albuterol Sulfate 3 ML AMPUL.NEB INHALATION ×2 (07:22→14:36)
[2024-10-29 07:32] LABS: Anion Gap 6 (5-15); BUN 86 mg/dL (7-18); BUN/Creat Ratio 47.5 RATIO (10-20); Calcium,Total 7.9 mg/dL (8.5-10.1); Chloride 106 mmol/L (98-107); Creatinine, Serum 1.81 mg/dL (0.70-1.30); EST Glomerular Filtration Rate 40 mL/min (>60); Est Glom Filt Rate - Afr Amer 48 mL/min (>60); Estimated Creatinine Clearance 33.67 ml/min; Glucose 110 mg/dL (74-106); Sodium Level 137 mmol/L (136-145)
[2024-10-29 07:46] LABS: Bedside Glucose 95 mg/dL (74-106)
[2024-10-29] MEDS: Isosorbide Mononitrate 30 MG Tablet PO (08:14)
[2024-10-29] MEDS: Aspirin E.C. 81 MG Tablet PO (08:14)
[2024-10-29] MEDS: Metoprolol Tartrate 25 MG Tablet PO ×2 (08:14→22:36)
[2024-10-29] MEDS: Heparin Injection (Vial) 5,000 UNIT/ML VIAL 5000 UNIT SC (08:15)
[2024-10-29] MEDS: guaiFENesin/D-Methorphan TAB.SR.12H 2 TABLET PO ×2 (08:15→22:35)
[2024-10-29] MEDS: Furosemide 40 MG Tablet PO ×2 (08:15→16:28)
--- NOTE | 2024-10-29 09:49 | CASEMGMT ---
Discharge Planning A list of HH providers including quality and resource use data and consistent with the patient's preferred geographic region, medical needs, and insurance network was created in CarePort Guide.? This list was provided to the RN INDER. Valorie Calloway, Discharge Planning Asst.
--- NOTE | 2024-10-29 11:02 | CASEMGMT ---
Per ICU rounds, the hospitalist (Dr. Peterson) states that the pt might DC today. Dr. Peterson notified that a DC plan has not yet been solidified. Per ICU rounds, the pt may not be safe to return home with his brother only as his brother works. Also noted that the pt only ambulated 4 feet with therapy yesterday. See notes. This RN CM to pt room at this time, pt is currently sleeping. Will follow. TC to PT and requested that therapy works with this pt soon to help decipher a safe DC plan for the pt today. CM and SW to follow. Anticipate home with HH and [facility]) vs SNF.
--- NOTE | 2024-10-29 11:31 | PCM.DC ---
Discharge Instructions Follow Up Care Test Results: Test results from this visit will be discussed in further detail at your follow-up appointment, if applicable. Discharge Plan Admission Admit Date/Time: 10/27/24 21:39 Attending Provider: Bhavin Peterson Primary Care Provider: Chris Umaña Consulting Providers: Jaciel Chen Discharge Orders/Prescriptions Prescriptions: New polyethylene glycol 3350 [Miralax] 17 gram/dose powder 17 g feeding tube DAILY 30 Days Qty: 510 0RF Continued aspirin 81 mg tablet,delayed release (DR/EC) 81 mg PO DAILY albuterol sulfate 2.5 mg /3 mL (0.083 %) Solution For Nebulization 2.5 mg inhalation Q2H PRN PRN (Reason: SOB &/OR WHEEZING) Qty: 0 0RF Mucinex DM 30-600 mg Tablet Extended Release 12 Hr 2 tab PO BID Qty: 0 0RF hydralazine 10 mg Tablet 10 mg G-tube TID Qty: 0 0RF ipratropium-albuterol 0.5 mg-3 mg(2.5 mg base)/3 mL Solution For Nebulization 3 ml inhalation Q4H.RT PRN (Reason: Shortness Of Breath) Qty: 0 0RF isosorbide mononitrate 30 mg Tablet Extended Release 24 Hr 30 mg PO DAILY Qty: 0 0RF tamsulosin 0.4 mg Capsule 0.4 mg PO DAILY@1730 Qty: 0 0RF insulin lispro [Humalog KwikPen Insulin] 100 unit/mL Insulin Pen See Protocol subcut Q6 Qty: 0 0RF Protocol: 3. Sliding Scale Insulin Med Dosing Condition: 150-189 mg/dl = 1 unit Condition: 190-229 mg/dl = 2 units Condition: 230-269 mg/dl = 3 units Condition: 270-309 mg/dl = 4 units Condition: 310-349 mg/dl = 5 units Condition: 350-399 mg/dl = 6 units Condition: 400-449 mg/dl = 7 units Condition: Greater than 449 call physician Protocol Text: Suggested for: - Patients on Total Daily Insulin Dose of 37-55 units - Obese, infected, or steroid patients MEDIUM DOSING ALGORITHIM metoprolol tartrate 25 mg Tablet 25 mg G-tube BID Qty: 0 0RF bisacodyl [Dulcolax (bisacodyl)] 10 mg suppository 10 mg HI DAILY PRN (Reason: constipation) (DME) FreeStyle [place] 2 [place] Misc See Rx Instructions .ROUTE Rx Instructions: As directed gabapentin 300 mg capsule 900 mg PO BID melatonin 3 mg Tablet 3 mg PO QHS PRN PRN (Reason: Insomnia) Qty: 0 0RF acetaminophen 500 mg Tablet 1,000 mg PO Q8 Qty: 0 0RF SPS (with sorbitol) 15-20 gram/60 mL Suspension 60 ml PO QWEEK 56 Days Qty: 480 0RF multivitamin [Daily Multi-Vitamin] Tablet 1 tab PO DAILY Changed furosemide 40 mg Tablet 40 mg PO BIDCM 30 Days Qty: 60 2RF Discontinued magnesium hydroxide [Dulcolax (magnesium hydroxide)] 400 mg/5 mL suspension 30 ml PO DAILY PRN (Reason: constipation) Referrals / Follow Up: Chris Umaña MD [Primary Care Provider] - Abeba Valero MD [Med Staff - Consulting] - Within 1 Month Ramon Masters MD [Med Staff - Active Staff] - Within 1 Month
--- NOTE | 2024-10-29 11:38 | PCM.PN.HOSP ---
Reason for Visit Reason for Visit: Diagnoses Acute systolic (congestive) heart failure (10/27/24) Hypoxemia (10/27/24) Localized edema (10/27/24) Objective Data Objective Data Vital Signs: Vital Signs Temp Pulse Resp BP Pulse Ox O2 Del Method O2 Flow Rate 97.5 F L 64 18 139/65 H 94 Nasal Cannula 4 10/29/24 08:30 10/29/24 08:30 10/29/24 08:30 10/29/24 08:30 10/29/24 08:30 10/29/24 08:30 10/29/24 08:30 Oxygen Flow Rate (L/min) 4 Oxygen Delivery Method Nasal Cannula Weight: 136 lb 3.931 oz Body Mass Index (BMI) 21.4 Intake & Output: Intake and Output for Last 24 Hours 10/27/24 10/28/24 10/29/24 23:59 23:59 23:59 Intake Total 1240 / 1240 100 / 100 Output Total 1100 / 1220 520 / 520 Balance 140 / 20 -420 / -420 Lab / Micro Data 10/29/24 06:42 10/29/24 06:42 Labs: Laboratory Results - last 24 hr 10/28/24 17:11: POC Glucose 155 H 10/28/24 21:41: POC Glucose 134 H 10/29/24 06:42: WBC 8.2, RBC 2.58 L, Hgb 7.1 L, Hct 23.1 L, MCV 89.5, MCH 27.5, MCHC 30.7 L, RDW Std Deviation 47.6 H, RDW Coeff of Agus 14.7 H, Plt Count 348, MPV 9.4, Immature Gran % (Auto) 0.500, Neut % (Auto) 71.9 H, Lymph % (Auto) 15.4 L, [place] % (Auto) 7.4, Eos % (Auto) 4.4, Baso % (Auto) 0.4, Absolute Neuts (auto) 5.9, Absolute Lymphs (auto) 1.27, Nucleated RBC % 0, Sodium 137, Potassium 5.0, Chloride 106, Carbon Dioxide 25.0, Anion Gap 6, BUN 86 H, Creatinine 1.81 H, Estim Creat Clear Calc 33.67, Est GFR (MDRD) Af Amer 48 L, Est GFR (MDRD) Non-Af 40 L, BUN/Creatinine Ratio 47.5 H, Glucose 110 H, Calcium 7.9 L 10/29/24 07:29: POC Glucose 95 Physical Exam Narrative Seen and examined. Patient states he does not want to [facility] [place] [facility] Patient was recently discharged on 10/22/2024 and came back with increased leg swelling. Patient was sent home on oxygen. Patient also has pressure ulcer in back Physical General: Alert, Oriented x3, Cooperative HEENT: Atraumatic, PERRLA, EOMI, Normocephalic Oral: Oral mucosa dry no Gingival or Mucosal Lesions/ Ulcerations Neck: Supple, No JVD, Negative Carotid Bruits Chest wall/Lungs: Air entry diminished in bilateral lung bases. No crepitation/rhonchi Cardiovascular: Sinus rhythm, Normal S1, Normal S2, No M/G/R Abdomen: PEG tube. Bowel Sounds Present, Soft, Non Tender, Non-Distended : No dysuria. No renal angle tenderness. No suprapubic tenderness. Extremities: Mild edema, Capillary Refill Less than 3 Seconds Skin: Pressure ulcer Musculoskeletal: No Tenderness to Palpation of Joints or Extremities Neurological: Cranial nerves II-XII grossly intact, DTR 2+/4. No acute focal neurological deficit. Psych/Mental Status: Flat affect Assessment & Plan Assessment/Plan (1) Acute HFrEF (heart failure with reduced ejection fraction): (2) Bilateral lower extremity edema: (3) Hypoxia: PLAN: Plan Patient is a 69-year-old male who presented to [facility] ED on 10/27/2024 with worsening lower extremity edema and mild shortness of breath with exertion. 1. Acute HFrEF exacerbation with hypoxia and recurrent bilateral pleural effusions ? Admit under patient status to PCU. Suspect mild exacerbation with low albumin from malnutrition also contributing. Chest x-ray on admit showed stable bilateral pleural effusions with vascular congestion. Requiring 3 L nasal cannula with exertion to maintain appropriate oxygen saturations. Started on IV Lasix. Heart failure core measures including intake and output, fluid restriction less than 1500 mL, daily weight monitoring, kidney and electrolytes monitoring. Continue home aspirin, hydralazine, nitrate, and Lopressor. 10/28: On exam not significant swelling. IV furosemide changed to oral 40 mg twice daily. 10/29: Patient is reluctant and has questionable adherence to medications and instructions. Patient walked only 4 feet with therapy. network program manager and social sciences research scientist working for safe discharge. 2. Mild hyperkalemia ? Potassium 5.2 on admit. Potassium has been running between 5.0 and 5.5 on recent labs, suspect this is at baseline. Monitor. 10/28 repeat potassium is 5.0. 3. CKD stage IIIb ? Creatinine 1.86 on admit, at baseline. Monitor daily BMP and urine output while on IV diuretics. 10/28: Creatinine 1.75 on baseline. 4. Severe malnutrition ? Albumin 1.8 on admit, BMI 21. Patient had prolonged recent admission. Has had improving p.o. intake with escalation of diet in setting of dysphagia but remains malnourished, will add dietary supplements to meals while here. 5. Recent dysphagia s/p PEG tube placement ? Had PEG tube placement during September admission. Had modified barium swallow study done on 10/21 that showed only mild to moderate oropharyngeal dysphagia. Is now tolerating a regular solid and nectar thick liquid diet, will continue this. No need for speech therapy consult at this time. 6. Acute on chronic debility, improving ? PT/OT/case management consulted. [facility] but would prefer to go home with home health care on discharge. 7. Anemia ? Anemia 7.6 on admit, stable from recent baseline. 10/29: Hemoglobin is low 7.1. IV iron infusion ordered. Chronic medical conditions: ? Hypertension: Continue home meds as above. ? Type 2 diabetes mellitus: Will treat with sign scale insulin with meals while inpatient. ? BPH with obstructive symptoms: Continue home Flomax. ? Peripheral neuropathy: Continue gabapentin at reduced dose of 300 mg 3 times daily. DVT prophylaxis: Heparin subcu discontinued. Lovenox 30 mg subcu daily with holding parameters. CODE STATUS: Full code, verified Expected disposition: TBD, either [facility] or [facility] Charges/Coding Visit Charges Inpatient E&M: 30892 Subs Hosp L2
[2024-10-29 11:42] LABS: Bedside Glucose 125 mg/dL (74-106)
--- NOTE | 2024-10-29 12:01 | CASEMGMT ---
Addendum entered by Idalmis Gerardo 10/29/24 12:33: Social Work SW spoke w/PT and OT, pt walked 4 feet. SW spoke w/pt again about discharge plan. Pt continues to state he will go home, he will not go to a senior living. SW inquired if his brother will help him at home, he states yes. SW inquired about his brother working, pt states he does work but he also home all the time. SW inquired if his brother is aware that pt is not walking well, he states yes he is. Pt states again to SW the only reason he came here is because his legs and feet were swollen, and he was worried he was having another heart attack. Pt informed SW he had 3 heart attacks recently, and explained to SW that SW has no idea how physically difficult this was. SW attempted to offer support. SW also attempted to explore w/pt why he is so adamant about not going to a senior care facility. Pt states he did not like how he was treated there. SW offered to get pt a list of other facilities that take his insurance, he could try a different facility. Pt staes, one is enough. SW explained will let the upper caser know to follow up for homegoing. SW did update CM. TWYLA Olvera Original Note: Social Work SW met w/pt, pt continues to say he will go home, does not want to go to SNF. SW explained we can look at other options than [facility], pt continue to say he will go home. SW reminded pt that he left [facility] and was home for a few hours before having to come back to the hospital, that he did not manage at home. Pt states he told the doctors it was because his legs and feet were swollen. Pt is going to work with therapy now, SW will check back w/pt after therapy. TWYLA Olvera
--- NOTE | 2024-10-29 12:39 | CASEMGMT ---
See SW note. Pt adamantly refuses SNF although PT and OT are recommending this. RN CM to pt room at this time. Pt RN at bedside. Pt sitting up in the chair at bedside. This RN CM discussed the next level of care for the pt (C). Pt states that he is agreeable to [facility] getting established. This RN CM notified the pt that this RN CM has a list of local in-network [facility] agencies for the pt to review. Pt declines the list and states that, I do not care who comes out to my house. This RN CM questioned if he would be OK with a referral to [facility]. Pt agrees. TC to [facility] and referral made for SN, PT, OT, and SW. Awaiting return response. Pt may also qualify for new home oxygen. Pt states that he does not currently have any oxygen equipment at home. Pt states that I don't want to go through [facility] because they [facility] me out. Pt states that he would prefer to go through his secondary insurance ([facility]) for potential oxygen equipment. A verbal list of local in-network DME companies were provided to the pt at this time. Pt prefers [facility].?Will follow pt RN O2 testing. Pt denies further questions or concerns at this time. CM to follow.
[2024-10-29] MEDS: Sodium Ferric Gluconat/Sucrose 250 MG in 0.9% Normal Saline (250mL Bag) 250 ML 135 MG IV (12:58)
--- NOTE | 2024-10-29 13:32 | CASEMGMT ---
Social Work As per home health, pt's [facility] is not active. NASIR called, his insurance was active from 10/16/23-10/15/24. NASIR called the financial dept, pt has Medicare A, B, C, and D and he has [facility] Medicaid to pay for his Medicare premium. Policy number is [id number]. NASIR called registration to update them. Registration called back and informed SW pt actually has [employer] Medicare, policy # [id number], group number [id number]. NASIR called [facility] to update them on pt's insurance. TWYLA Olvera
[2024-10-29] MEDS: Furosemide 20 MG/2 ML VIAL IV (14:46)
--- NOTE | 2024-10-29 15:15 | CASEMGMT ---
Addendum entered by Dave Puga 10/29/24 15:53: Jeni from [facility] HH returns call and states that they cannot accept the pt d/t requiring a higher level of care. PATEL Eugene pet care assistant notified and states she will send referrals to the remaining in-network [facility] agencies. Original Note: Pt secondary insurance is [place] [employer], see SW note. At this time, the HH referral is still pending. Also, see RN O2 qualification testing. Dr. Peterson notified of results and the MD states that the pt will be staying in the hospital overnight. CM to continue to follow for HH and oxygen needs.
--- NOTE | 2024-10-29 16:19 | CASEMGMT ---
Addendum entered by Valorie Calloway 10/30/24 14:09: [facility] has declined. DEMARCO LOVING updated. Valorie Calloway DC Planning Asst. Addendum entered by Valorie Calloway 10/30/24 10:07: Referral was declined by Rojelio Cisneros, Pat[facility], [facility], Yolie Dupree, [facility], [facility], , and [facility]. DEMARCO LOVING left msg for [facility] and [facility] sent to [facility] to check on status of referral. Valorie Calloway DC Planning Asst. Original Note: HH referrals sent via [facility]Port to [facility], Rojelio Cisneros, [facility], [facility], [facility], Yo[facility] Dupree, [facility], [facility], , and [facility]. [facility] declined. Valorie Calloway DC Planning Asst.
[2024-10-29] MEDS: Insulin Lispro 100 UNIT/ML INSULN.PEN SC (16:27)
[2024-10-29] MEDS: Tamsulosin HCl 0.4 MG Capsule PO (16:28)
[2024-10-29 18:34] LABS: Bedside Glucose 150 mg/dL (74-106)
[2024-10-29 22:37] LABS: Bedside Glucose 96 mg/dL (74-106)
[2024-10-30] VITALS (10 sets, daily range): BP systolic 120–145; BP diastolic 57–64; PULSE 55–60; RESP 20–26; TEMP 36.4–36.9; O2SAT 85–97; BMI 21.2
[2024-10-30] MEDS: hydrALAZINE 10 MG Tablet PO ×2 (06:20→15:23)
[2024-10-30] MEDS: Gabapentin 300 MG Capsule PO ×2 (06:23→15:23)
[2024-10-30 07:01] LABS: Bedside Glucose 99 mg/dL (74-106)
[2024-10-30 07:11] LABS: Absolute Lymphocyte Count 1.32 X10^3/uL (0.83-4.51); Absolute Neutrophil Count 6.1 X10^3/uL (2.0-7.7); Basophil# 0.04 X10^3/uL; Basophil% 0.5 % (0-1); Eosinophils% 5.7 % (0-5); Hematocrit 23.5 % (40-54); Hemoglobin 7.2 g/dL (13.0-16.5); Lymphocyte # 1.32 X10^3/ul (0.83-4.51); Lymphocyte % 15.1 % (19-41); Mean Corp Hgb Conc 30.6 g/dL (32-36); Mean Corpuscular Hgb 27.6 pg (27.0-32.0); Monocyte# 0.73 X10^3/uL; Monocyte% 8.3 % (0-10); NRBC Flagged by Analyzer 0 % (0-5); Neutrophil # 6.12 X10^3/uL (2.7-7.7); Neutrophil % 69.8 % (47-70); Platelet Count 373 K/mm3 (150-450); RBC Distribution Width CV 14.8 % (11.6-14.6); RBC Distribution Width SD 48.4 fl (35.1-43.9); Red Blood Count 2.61 M/mm3 (4.6-6.2); White Blood Count 8.8 K/mm3 (4.4-11.0)
[2024-10-30 07:36] LABS: Anion Gap 4 (5-15); BUN 78 mg/dL (7-18); BUN/Creat Ratio 45.9 RATIO (10-20); Calcium,Total 8.1 mg/dL (8.5-10.1); Chloride 107 mmol/L (98-107); EST Glomerular Filtration Rate 43 mL/min (>60); Est Glom Filt Rate - Afr Amer 52 mL/min (>60); Glucose 103 mg/dL (74-106); Sodium Level 138 mmol/L (136-145)
--- NOTE | 2024-10-30 07:46 | PCM.DC ---
Discharge Instructions Diet Discharge Diet: 8 Cup Fluid Restriction and 2000 mg Sodium Diet DC O2, CPAP, BIPAP needs RN Home O2 Qualification: Home O2 Qualification: Is the patient on home oxygen No 10/29/24 13:21 Home O2 Qualification: AT REST 1- Pulse Ox at rest 78 10/29/24 13:21 2- Pulse Ox at rest 92 10/29/24 13:21 2- Oxygen Flow Rate at rest 5 10/29/24 13:21 Home O2 Qualification: WITH AMBULATION 1- Pulse Ox with ambulation 85 10/29/24 13:21 1- Oxygen Flow Rate with 5 10/29/24 13:21 ambulation 2- Pulse Ox with ambulation 90 10/29/24 13:21 2- Oxygen Flow Rate with 8 10/29/24 13:21 ambulation Home O2 Discharge instructions: Yes Type of respiratory needs?: Oxygen Oxygen frequency: Continuous Continuous oxygen liters per minute: 2 l/m Dressing / Incision Discharge Activity: Return to Normal Activity Weight Bearing Status: Weight bearing as tolerated Dressing / Incision Call your doctor if you observe: Fever of 101 or Higher, Coldness, Increased Pain, Numbness or Tingling, Change in Color, Inability to urinate, Inability to have a bowel movement, Shortness of breath, Dizziness, Fainting spells, Swelling in the ankles, Chest pain, Prolonged hiccupping, Increased palpitations (irregular heartbeat) and Calf discomfort Follow Up Care When: IN 2 WEEKS Test Results: Test results from this visit will be discussed in further detail at your follow-up appointment, if applicable. Discharge Plan Admission Admit Date/Time: 10/27/24 21:39 Primary Reason for Your Visit: CHF exacerbation Attending Provider: Bhavin Peterson Primary Care Provider: Chris Umaña Consulting Providers: Jaciel Chen Discharge Orders/Prescriptions Prescriptions: New polyethylene glycol 3350 [Miralax] 17 gram/dose powder 17 g feeding tube DAILY 30 Days Qty: 510 0RF Continued aspirin 81 mg tablet,delayed release (DR/EC) 81 mg PO DAILY albuterol sulfate 2.5 mg /3 mL (0.083 %) Solution For Nebulization 2.5 mg inhalation Q2H PRN PRN (Reason: SOB &/OR WHEEZING) Qty: 0 0RF Mucinex DM 30-600 mg Tablet Extended Release 12 Hr 2 tab PO BID Qty: 0 0RF hydralazine 10 mg Tablet 10 mg G-tube TID Qty: 0 0RF ipratropium-albuterol 0.5 mg-3 mg(2.5 mg base)/3 mL Solution For Nebulization 3 ml inhalation Q4H.RT PRN (Reason: Shortness Of Breath) Qty: 0 0RF isosorbide mononitrate 30 mg Tablet Extended Release 24 Hr 30 mg PO DAILY Qty: 0 0RF tamsulosin 0.4 mg Capsule 0.4 mg PO DAILY@1730 Qty: 0 0RF insulin lispro [Humalog KwikPen Insulin] 100 unit/mL Insulin Pen See Protocol subcut Q6 Qty: 0 0RF Protocol: 3. Sliding Scale Insulin Med Dosing Condition: 150-189 mg/dl = 1 unit Condition: 190-229 mg/dl = 2 units Condition: 230-269 mg/dl = 3 units Condition: 270-309 mg/dl = 4 units Condition: 310-349 mg/dl = 5 units Condition: 350-399 mg/dl = 6 units Condition: 400-449 mg/dl = 7 units Condition: Greater than 449 call physician Protocol Text: Suggested for: - Patients on Total Daily Insulin Dose of 37-55 units - Obese, infected, or steroid patients MEDIUM DOSING ALGORITHIM metoprolol tartrate 25 mg Tablet 25 mg G-tube BID Qty: 0 0RF bisacodyl [Dulcolax (bisacodyl)] 10 mg suppository 10 mg [place] DAILY PRN (Reason: constipation) (DME) [employer] [facility] [place] .ROUTE Rx Instructions: As directed gabapentin 300 mg capsule 900 mg PO BID melatonin 3 mg Tablet 3 mg PO QHS PRN PRN (Reason: Insomnia) Qty: 0 0RF acetaminophen 500 mg Tablet 1,000 mg PO Q8 Qty: 0 0RF SPS (with sorbitol) 15-20 gram/60 mL Suspension 60 ml PO QWEEK 56 Days Qty: 480 0RF multivitamin [Daily Multi-Vitamin] Tablet 1 tab PO DAILY Changed furosemide 40 mg Tablet 40 mg PO BIDCM 30 Days Qty: 60 2RF Discontinued magnesium hydroxide [Dulcolax (magnesium hydroxide)] 400 mg/5 mL suspension 30 ml PO DAILY PRN (Reason: constipation) Referrals / Follow Up: Abeba Valero MD [Med Staff - Consulting] - Within 1 Month Ramon Masters MD [Med Staff - Active Staff] - Within 1 Month Chris Umaña MD [Primary Care Provider] - Disposition Disposition (needs filled in before D/C Order can be placed): Home Health Service
--- NOTE | 2024-10-30 08:37 | PCM.DC.SUM ---
Providers Date of Admission: 10/27/24 Date of Discharge: 10/30/24 Primary Care Physician: Dr. 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 1. Acute HFrEF exacerbation with hypoxia and recurrent bilateral pleural effusions ? Admit under patient status to PCU. Suspect mild exacerbation with low albumin from malnutrition also contributing. Chest x-ray on admit showed stable bilateral pleural effusions with vascular congestion. Requiring 3 L nasal cannula with exertion to maintain appropriate oxygen saturations. Started on IV Lasix. Heart failure core measures including intake and output, fluid restriction less than 1500 mL, daily weight monitoring, kidney and electrolytes monitoring. Continue home aspirin, hydralazine, nitrate, and Lopressor. 10/28: On exam not significant swelling. IV furosemide changed to oral 40 mg twice daily. 10/29: Patient is reluctant and has questionable adherence to medications and instructions. Patient walked only 4 feet with therapy. manager of investigations and social services assistant working for safe discharge. 10/30: Patient on 2 L of oxygen. Home oxygen qualification ordered. Patient is being discharged home with home health. Prescription given for furosemide. 2. Mild hyperkalemia ? Potassium 5.2 on admit. Potassium has been running between 5.0 and 5.5 on recent labs, suspect this is at baseline. Monitor. 10/28 repeat potassium is 5.0. 3. CKD stage IIIb ? Creatinine 1.86 on admit, at baseline. Monitor daily BMP and urine output while on IV diuretics. 10/28: Creatinine 1.75 on baseline. 4. Severe malnutrition ? Albumin 1.8 on admit, BMI 21. Patient had prolonged recent admission. Has had improving p.o. intake with escalation of diet in setting of dysphagia but remains malnourished, will add dietary supplements to meals while here. 5. Recent dysphagia s/p PEG tube placement ? Had PEG tube placement during September admission. Had modified barium swallow study done on 10/21 that showed only mild to moderate oropharyngeal dysphagia. Is now tolerating a regular solid and nectar thick liquid diet, will continue this. No need for speech therapy consult at this time. 6. Acute on chronic debility, improving ? PT/OT/case management consulted. [facility] but would prefer to go home with home health care on discharge. 7. Anemia ? Anemia 7.6 on admit, stable from recent baseline. 10/29: Hemoglobin is low 7.1. IV iron infusion ordered. 10/30: I think his anemia is due to chronic disease/CKD. Patient was given IV iron but hemoglobin did not improve, today's hemoglobin 7.2. Chronic medical conditions: ? Hypertension: Continue home meds as above. ? Type 2 diabetes mellitus: Will treat with sign scale insulin with meals while inpatient. ? BPH with obstructive symptoms: Continue home Flomax. ? Peripheral neuropathy: Continue gabapentin at reduced dose of 300 mg 3 times daily. DVT prophylaxis: Heparin subcu discontinued. Lovenox 30 mg subcu daily with holding parameters. CODE STATUS: Full code, verified Discharge medication reconciliation done. Discharge follow-up instructions completed. Discharge process discussed with the patient and all questions were answered to patient's satisfaction. Follow with PCP in 1 to 2 weeks Total time spent, exact 35 minutes on discharge meds reconciliation, examination, coordination of care with nurses and ancillary staff, review of imaging and blood test and discussion with the patient on follow-up instructions. Medications at Discharge Home Medications aspirin 81 mg tablet,delayed release 81 mg PO DAILY 09/17/24 albuterol sulfate 2.5 mg/3 mL (0.083 %) solution for nebulization 2.5 mg (3 mL) inhalation Q2H PRN PRN SOB &/OR WHEEZING #0 mL 10/02/24 dextromethorphan-guaifenesin 30 mg-600 mg tablet extended [id number] hr (Mucinex DM) 2 tab PO BID #0 tabs 10/02/24 hydralazine 10 mg tablet 10 mg G-tube TID #0 tabs 10/02/24 insulin lispro 100 unit/mL subcutaneous pen (Humalog KwikPen (U-100) Insulin) See Protocol subcut Q6 #0 mL 10/02/24 ipratropium 0.5 mg-albuterol 3 mg (2.5 mg base)/3 mL nebulization soln 3 ml inhalation Q4H.RT PRN Shortness Of Breath #0 mL 10/02/24 isosorbide mononitrate 30 mg tablet,extended release 24 hr 30 mg PO DAILY #0 tabs 10/02/24 metoprolol tartrate 25 mg tablet 25 mg G-tube BID #0 tabs 10/02/24 tamsulosin 0.4 mg capsule 0.4 mg PO DAILY@1730 #0 caps 10/02/24 bisacodyl 10 mg rectal suppository (Dulcolax (bisacodyl)) 10 mg [place] DAILY PRN constipation 10/17/24 flash glucose scanning reader ([employer] [place] [address] [place]) 10/17/24 gabapentin 300 mg capsule 900 mg PO BID 10/17/24 acetaminophen 500 mg tablet 1,000 mg (2 x 500 mg) PO Q8 #0 tabs 10/22/24 melatonin 3 mg tablet 3 mg PO QHS PRN PRN Insomnia #0 tabs 10/22/24 sodium polystyrene sulfonate 15 gram-sorbitol 20 gram/60 mL oral susp (SPS (with sorbitol)) 60 ml PO QWEEK 8 weeks #480 mL 10/22/24 multivitamin (Daily Multi-Vitamin tablet) 1 tab PO DAILY 10/27/24 furosemide 40 mg tablet 40 mg PO BIDCM 30 days #60 tabs 10/29/24 polyethylene glycol 3350 17 gram/dose oral powder (Miralax) 17 g feeding tube DAILY 1 month #510 grams 10/29/24 Physical Exam Narrative Seen and examined. Patient states he does not want to go [facility]. Discussed with the social services assistant Patient was recently discharged on 10/22/2024 and came back with increased leg swelling. Patient was sent home on oxygen. Patient also has pressure ulcer in back Physical General: Alert, Oriented x3, Cooperative HEENT: Atraumatic, PERRLA, EOMI, Normocephalic Oral: Oral mucosa dry no Gingival or Mucosal Lesions/ Ulcerations Neck: Supple, No JVD, Negative Carotid Bruits Chest wall/Lungs: Air entry diminished in bilateral lung bases. No crepitation/rhonchi Cardiovascular: Sinus rhythm, Normal S1, Normal S2, No M/G/R Abdomen: PEG tube. Bowel Sounds Present, Soft, Non Tender, Non-Distended : No dysuria. No renal angle tenderness. No suprapubic tenderness. Extremities: Mild edema, Capillary Refill Less than 3 Seconds Skin: Pressure ulcer Musculoskeletal: No Tenderness to Palpation of Joints or Extremities Neurological: Cranial nerves II-XII grossly intact, DTR 2+/4. No acute focal neurological deficit. Psych/Mental Status: Flat affect Weight / BMI Weight Weight: 134 lb 14.766 oz Body Mass Index (BMI) 21.2 ABG / Lab / Microbiology Data 10/30/24 06:49 10/30/24 06:49 Laboratory: Laboratory Results - last 24 hr 10/29/24 16:26: POC Glucose 150 H 10/29/24 22:19: POC Glucose 96 10/30/24 06:25: POC Glucose 99 10/30/24 06:49: WBC 8.8, RBC 2.61 L, Hgb 7.2 L, Hct 23.5 L, MCV 90.0, MCH 27.6, MCHC 30.6 L, RDW Std Deviation 48.4 H, RDW Coeff of Agus 14.8 H, Plt Count 373, MPV 9.0, Immature Gran % (Auto) 0.600, Neut % (Auto) 69.8, Lymph % (Auto) 15.1 L, [place] % (Auto) 8.3, Eos % (Auto) 5.7 H, Baso % (Auto) 0.5, Absolute Neuts (auto) 6.1, Absolute Lymphs (auto) 1.32, Nucleated RBC % 0, Sodium 138, Potassium 5.0, Chloride 107, Carbon Dioxide 27.0, Anion Gap 4 L, BUN 78 H, Creatinine 1.70 H, Estim Creat Clear Calc 35.50, Est GFR (MDRD) Af Amer 52 L, Est GFR (MDRD) Non-Af 43 L, BUN/Creatinine Ratio 45.9 H, Glucose 103, Calcium 8.1 L D/C Instructions Discharge Diet: 8 Cup Fluid Restriction and 2000 mg Sodium Diet Weight Bearing Status: Weight bearing as tolerated Call your doctor if you observe: Fever of 101 or Higher, Coldness, Increased Pain, Numbness or Tingling, Change in Color, Inability to urinate, Inability to have a bowel movement, Shortness of breath, Dizziness, Fainting spells, Swelling in the ankles, Chest pain, Prolonged hiccupping, Increased palpitations (irregular heartbeat) and Calf discomfort DC O2, CPAP, BIPAP Needs RN Home O2 Qualification: Home O2 Qualification: Is the patient on home oxygen No 10/30/24 10:29 Home O2 Qualification: AT REST 1- Pulse Ox at rest 85 10/30/24 10:29 2- Pulse Ox at rest 94 10/30/24 10:29 2- Oxygen Flow Rate at rest 2 10/30/24 10:29 Home O2 Qualification: WITH AMBULATION 1- Pulse Ox with ambulation 90 10/30/24 10:29 1- Oxygen Flow Rate with 6 10/30/24 10:29 ambulation 2- Pulse Ox with ambulation 90 10/29/24 13:21 2- Oxygen Flow Rate with 8 10/29/24 13:21 ambulation Home O2 Discharge instructions: Yes Type of respiratory needs?: Oxygen Oxygen frequency: Continuous Continuous oxygen liters per minute: 2 l/m DC home with Oxygen: Yes Home O2 MD Review: I have reviewed the oxygen testing, and the patient qualifies for home oxygen equipment and portability. The patient is mobile in the home and the community. When: IN 2 WEEKS Meaningful Use Info Meaningful Use Meaningful Use Diagnoses (Choose all that apply): None applicable Ischemic Stroke Statin Dosing Therapy Reference: STATIN DOSE THERAPY REFERENCE: * Patients > 75 years receive moderate or high dose statin therapy. * Patients 75 years or YOUNGER should receive HIGH intensity statin dose unless contraindicated. You will be required to document reason for non-treatment if statin daily dose does not meet guidelines. HIGH DOSE STATIN THERAPY DAILY Atorvastatin > than or = to 40 mg Rosuvastatin > than or = to 20 mg Amlodipine + Atorvastatin > than or = to 2.5/40 mg Ezetimibe + Simvastatin 10/80 mg Simvastatin 80mg Discharge Plan Admission Admit Date/Time: 10/27/24 21:39 Primary Reason for Your Visit: CHF exacerbation Attending Provider: Bhavin Peterson Primary Care Provider: Chris Umaña Consulting Providers: Jaciel Chen Discharge Orders/Prescriptions Prescriptions: New polyethylene glycol 3350 [Miralax] 17 gram/dose powder 17 g feeding tube DAILY 30 Days Qty: 510 0RF Continued aspirin 81 mg tablet,delayed release (DR/EC) 81 mg PO DAILY albuterol sulfate 2.5 mg /3 mL (0.083 %) Solution For Nebulization 2.5 mg inhalation Q2H PRN PRN (Reason: SOB &/OR WHEEZING) Qty: 0 0RF Mucinex DM 30-600 mg Tablet Extended Release 12 Hr 2 tab PO BID Qty: 0 0RF hydralazine 10 mg Tablet 10 mg G-tube TID Qty: 0 0RF ipratropium-albuterol 0.5 mg-3 mg(2.5 mg base)/3 mL Solution For Nebulization 3 ml inhalation Q4H.RT PRN (Reason: Shortness Of Breath) Qty: 0 0RF isosorbide mononitrate 30 mg Tablet Extended Release 24 Hr 30 mg PO DAILY Qty: 0 0RF tamsulosin 0.4 mg Capsule 0.4 mg PO DAILY@1730 Qty: 0 0RF insulin lispro [Humalog KwikPen Insulin] 100 unit/mL Insulin Pen See Protocol subcut Q6 Qty: 0 0RF Protocol: 3. Sliding Scale Insulin Med Dosing Condition: 150-189 mg/dl = 1 unit Condition: 190-229 mg/dl = 2 units Condition: 230-269 mg/dl = 3 units Condition: 270-309 mg/dl = 4 units Condition: 310-349 mg/dl = 5 units Condition: 350-399 mg/dl = 6 units Condition: 400-449 mg/dl = 7 units Condition: Greater than 449 call physician Protocol Text: Suggested for: - Patients on Total Daily Insulin Dose of 37-55 units - Obese, infected, or steroid patients MEDIUM DOSING ALGORITHIM metoprolol tartrate 25 mg Tablet 25 mg G-tube BID Qty: 0 0RF bisacodyl [Dulcolax (bisacodyl)] 10 mg suppository 10 mg [place] DAILY PRN (Reason: constipation) (DME) [employer] [facility] [place] See Rx Instructions .ROUTE Rx Instructions: As directed gabapentin 300 mg capsule 900 mg PO BID melatonin 3 mg Tablet 3 mg PO QHS PRN PRN (Reason: Insomnia) Qty: 0 0RF acetaminophen 500 mg Tablet 1,000 mg PO Q8 Qty: 0 0RF SPS (with sorbitol) 15-20 gram/60 mL Suspension 60 ml PO QWEEK 56 Days Qty: 480 0RF multivitamin [Daily Multi-Vitamin] Tablet 1 tab PO DAILY Changed furosemide 40 mg Tablet 40 mg PO BIDCM 30 Days Qty: 60 2RF Discontinued magnesium hydroxide [Dulcolax (magnesium hydroxide)] 400 mg/5 mL suspension 30 ml PO DAILY PRN (Reason: constipation) Referrals / Follow Up: Abeba Valero MD [Med Staff - Consulting] - Within 1 Month (Office will reach to patient to make appointment) Ramon Masters MD [Med Staff - Active Staff] - 11/07/24 9:30 am Chris Umaña MD [Primary Care Provider] - Disposition Disposition (needs filled in before D/C Order can be placed): Home Health Service Charges/Coding Visit Charges Inpatient E&M: 32714 Disch Hosp >30min
--- NOTE | 2024-10-30 09:32 | CASEMGMT ---
Addendum entered by Dave Puga 10/30/24 11:51: TC to [facility]. No answer, left. Addendum entered by Dave Puga 10/30/24 11:10: [facility] notified that [facility]. Inquired if the HH can accept the pt under [facility]. Awaiting return response. [facility] referral is still pending at this time. Addendum entered by Dave Puga 10/30/24 09:47: TC to [facility] to review status of referral. No answer, VM left. Original Note: Pt has an order for DC placed. Per ICU rounds, pt RN plans to test the pt oxygen requirements. At this time, there are still HH referrals pending to [facility], and [facility]. [facility], [facility], [facility], [facility], and [facility] have all declined the HH referral. Care Management to follow.
--- NOTE | 2024-10-30 09:54 | CASEMGMT ---
NASIR called [facility] at [facility]. Hudson said patient is not established as a patient and has not been since 2019. Patient is not service connected to receive [facility]. Patient would have to get re-[facility] with the [facility] in order to receive any services. Pili Burnett [employer]
[2024-10-30] MEDS: Aspirin E.C. 81 MG Tablet PO (10:23)
[2024-10-30] MEDS: Isosorbide Mononitrate 30 MG Tablet PO (10:23)
[2024-10-30] MEDS: Enoxaparin 40 MG/0.4 ML Syringe SC (10:24)
[2024-10-30] MEDS: guaiFENesin/D-Methorphan TAB.SR.12H 2 TABLET PO (10:24)
[2024-10-30] MEDS: Furosemide 40 MG/4 ML Vial IV (10:28)
--- NOTE | 2024-10-30 11:07 | CASEMGMT ---
Addendum entered by Dave Puga 10/30/24 11:14: Rusty from [facility] reports that he received the referral and will be to the floor shortly to deliver the oxygen equipment. Original Note: Per the RN o2 testing, the pt qualifies for 2L cont., and 6L with exertion. Rx signed by Dr. Peterson. O2 Rx and O2 testing sent to [facility] via [facility] at this time.
--- NOTE | 2024-10-30 11:20 | CASEMGMT ---
[facility] CM to pt room at this time. Pt is A&Ox4, laying in bed and is calm. Pt notified that Rusty from [employer] will be to the room shortly to deliver the portable oxygen tank. Pt notified to call [employer] once he gets home to have [employer] deliver the remaining equipment. Pt states understanding. This RN CM discussed how the pt did with therapy today. Pt states that he believes that it went better than yesterday. Pt still states that he wishes to DC to his brothers home today and refuses SNF needs. This RN CM discussed with the pt that there are currently only 2 HH referrals pending, as all the other HHC agencies have declined, stating that they are OON or that they believe the pt requires a higher level of care. Pt states that he still wants to DC home and feels safe doing so, even if HHC can't get established. This RN CM discussed the possibility of returning to [facility] after DC and that [facility] staff is trying to avoid this for the pt. Pt states,I will be fine with my brother and I don't want to go anywhere for therapy, and that One usp is enough I don't want to go to another one. This RN CM educated the pt about the [facility] program. This RN CM is unsure if the pt will qualify but the pt states that he is agreeable with a referral being made. Order placed in [employer]. CM to follow further HH referrals. Pt denies further questions or concerns at this time and states that his brother will be picking him up later sometime.
--- NOTE | 2024-10-30 11:58 | CASEMGMT ---
Addendum entered by Jovanna De Luna 10/30/24 14:24: NASIR spoke with Paula at [facility] and provided referral information. Paula will write up referral. MATTEO Morales Original Note: Social Work- SW participated in interdisciplinary rounds on pt. Pt is anticipated to discharge today. NASIR called [facility] to complete referral. Pt is recommended for a higher level of care, but is refusing recommendations and plans to discharge with C. NASIR left a voicemail for [facility]. NASIR remains available to follow. MATTEO Morales
--- NOTE | 2024-10-30 15:02 | CASEMGMT ---
Pt Brother, Carroll, calls into [facility] to talk to this RN CM. Pt Carroll is extremely frustrated that the pt has not gotten HHC established. Pt Brother cursing multiple times and yelling saying that he wants answers and wants answers now. This RN CM explained to the pt brother that [facility] staff has been working diligently on getting HHC established. However, multiple HHC agencies have declined due to either being out of network, out of service area, or stating that the pt requires a higher level of care. Pt brother is very frustrated with this and states that he needs help at home with the pt. This RN CM reassured the pt brother that there are still some HH referrals pending. Carroll also notified that this RN CM made a referral for [facility]. This RN CM inquired if the pt brother would be interested in Pvt Duty information. Pt brother declines and states, We cannot afford that. Pt brother denies further needs at this time. CM to follow HH referrals. Pt RN updated.
--- NOTE | 2024-10-30 15:18 | PN.HOSP_ITS ---
Reason for Visit Reason for Visit: Diagnoses Acute systolic (congestive) heart failure (10/27/24) Hypoxemia (10/27/24) Localized edema (10/27/24) Objective Data Objective Data Vital Signs: Vital Signs Temp Pulse Resp BP Pulse Ox O2 Del Method O2 Flow Rate 97.5 F L 56 L 22 H 120/58 L 96 Nasal Cannula 2 10/30/24 10:21 10/30/24 10:21 10/30/24 10:21 10/30/24 10:21 10/30/24 10:21 10/30/24 10:21 10/30/24 10:21 Oxygen Flow Rate (L/min) 2 Oxygen Delivery Method Nasal Cannula Weight: 134 lb 14.766 oz Body Mass Index (BMI) 21.2 Intake & Output: Intake and Output for Last 24 Hours 10/28/24 10/29/24 10/30/24 23:59 23:59 23:59 Intake Total 1240 / 1240 970 / 970 Output Total 1100 / 1220 1320 / 1320 900 / 900 Balance 140 / 20 -350 / -350 -900 / -900 Lab / Micro Data 10/30/24 06:49 10/30/24 06:49 Labs: Laboratory Results - last 24 hr 10/29/24 16:26: POC Glucose 150 H 10/29/24 22:19: POC Glucose 96 10/30/24 06:25: POC Glucose 99 10/30/24 06:49: WBC 8.8, RBC 2.61 L, Hgb 7.2 L, Hct 23.5 L, MCV 90.0, MCH 27.6, MCHC 30.6 L, RDW Std Deviation 48.4 H, RDW Coeff of Agus 14.8 H, Plt Count 373, MPV 9.0, Immature Gran % (Auto) 0.600, Neut % (Auto) 69.8, Lymph % (Auto) 15.1 L , [place] % (Auto) 8.3, Eos % (Auto) 5.7 H, Baso % (Auto) 0.5, Absolute Neuts (auto) 6.1, Absolute Lymphs (auto) 1.32, Nucleated RBC % 0, Sodium 138, Potassium 5.0, Chloride 107, Carbon Dioxide 27.0, Anion Gap 4 L, BUN 78 H, C reatinine 1.70 H, Estim Creat Clear Calc 35.50, Est GFR (MDRD) Af Amer 52 L, Est GFR (MDRD) Non-Af 43 L, BUN/Creatinine Ratio 45.9 H, Glucose 103, Calcium 8.1 L Physical Exam Narrative Seen and examined. Patient states he does not want to go [facility]. Discussed with the oncology social work Patient and brother not a suitable for discharge with home health care. Patient was recently discharged on 10/22/2024 and came back with increased leg swelling. Patient was sent home on oxygen. Patient also has pressure ulcer in back Physical General: Alert, Oriented x3, Cooperative HEENT: Atraumatic, PERRLA, EOMI, Normocephalic Oral: Oral mucosa dry no Gingival or Mucosal Lesions/ Ulcerations Neck: Supple, No JVD, Negative Carotid Bruits Chest wall/Lungs: Air entry diminished in bilateral lung bases. No crepitation/rhonchi Cardiovascular: Sinus rhythm, Normal S1, Normal S2, No M/G/R Abdomen: PEG tube. Bowel Sounds Present, Soft, Non Tender, Non-Distended : No dysuria. No renal angle tenderness. No suprapubic tenderness. Extremities: Mild edema, Capillary Refill Less than 3 Seconds Skin: Pressure ulcer Musculoskeletal: No Tenderness to Palpation of Joints or Extremities Neurological: Cranial nerves II-XII grossly intact, DTR 2+/4. No acute focal neurological deficit. Psych/Mental Status: Flat affect Const alert, oriented x3, no apparent distress and average body habitus Constitutional Narrative: Elderly male, thin and somewhat chronically ill-appearing, mildly fatigued appearing, otherwise sitting up comfortably in bed, answering questions appropriately, in no acute distress. General Appearance: cooperative and comfortable HEENT normocephalic, head/scalp atraumatic, hearing grossly normal bilaterally, nasal mucous membranes and turbinates normal and moist oral mucous membranes Eyes PERRL, EOMs intact bilaterally and conjunctivae normal Neck full ROM Chest inspection of chest normal Resp normal respiratory effort and no use of accessory muscles Resp Narrative: Decreased breath sounds in bilateral lung bases with mild crackles noted. Otherwise good air movement in mid to upper lung zones with no wheezing noted. Cardio regular rate, regular rhythm, no murmurs and peripheral pulses 2+ throughout GI normal to inspection, nondistended, normoactive bowel sounds, soft to palpation, non-tender and non-distended GI Narrative: PEG tube in place, site appears clean and dry. Back/Spine normal ROM Extremity full ROM Extremity Narrative: +2-3 lower extremity pitting edema noted. Skin no rashes or lesions noted Neuro moves all extremities and no focal motor deficits Speech: speech normal Motor Exam: strength 5/5 throughout Psych mental status grossly normal Assessment & Plan Assessment/Plan (1) Acute HFrEF (heart failure with reduced ejection fraction): (2) Bilateral lower extremity edema: (3) Hypoxia: PLAN: Plan Patient is a 69-year-old male who presented to [facility] ED on 10/27/2024 with worsening lower extremity edema and mild shortness of breath with exertion. 1. Acute HFrEF exacerbation with hypoxia and recurrent bilateral pleural effusions ? Admit under patient status to PCU. Suspect mild exacerbation with low albumin from malnutrition also contributing. Chest x-ray on admit showed stable bilateral pleural effusions with vascular congestion. Requiring 3 L nasal cannula with exertion to maintain appropriate oxygen saturations. Started on IV Lasix. Heart failure core measures including intake and output, fluid restriction less than 1500 mL, daily weight monitoring, kidney and electrolytes monitoring. Continue home aspirin, hydralazine, nitrate, and Lopressor. 10/28: On exam not significant swelling. IV furosemide changed to oral 40 mg twice daily. 10/29: Patient is reluctant and has questionable adherence to medications and instructions. Patient walked only 4 feet with therapy. frozen food department manager and oncology social work working for safe discharge. 10/30: Patient on 2 L of oxygen. Home oxygen qualification ordered. Patient is being discharged home with home health. Prescription given for furosemide. 2. Mild hyperkalemia ? Potassium 5.2 on admit. Potassium has been running between 5.0 and 5.5 on recent labs, suspect this is at baseline. Monitor. 10/28 repeat potassium is 5.0. 3. CKD stage IIIb ? Creatinine 1.86 on admit, at baseline. Monitor daily BMP and urine output while on IV diuretics. 10/28: Creatinine 1.75 on baseline. 4. Severe malnutrition ? Albumin 1.8 on admit, BMI 21. Patient had prolonged recent admission. Has had improving p.o. intake with escalation of diet in setting of dysphagia but remains malnourished, will add dietary supplements to meals while here. 5. Recent dysphagia s/p PEG tube placement ? Had PEG tube placement during September admission. Had modified barium swallow study done on 10/21 that showed only mild to moderate oropharyngeal dysphagia. Is now tolerating a regular solid and nectar thick liquid diet, will continue this. No need for speech therapy consult at this time. 6. Acute on chronic debility, improving ? PT/OT/case management consulted. [facility] but would prefer to go home with home health care on discharge. 7. Anemia ? Anemia 7.6 on admit, stable from recent baseline. 10/29: Hemoglobin is low 7.1. IV iron infusion ordered. 10/30: I think his anemia is due to chronic disease/CKD. Patient was given IV iron but hemoglobin did not improve, today's hemoglobin 7.2. Chronic medical conditions: ? Hypertension: Continue home meds as above. ? Type 2 diabetes mellitus: Will treat with sign scale insulin with meals while inpatient. ? BPH with obstructive symptoms: Continue home Flomax. ? Peripheral neuropathy: Continue gabapentin at reduced dose of 300 mg 3 times daily. DVT prophylaxis: Heparin subcu discontinued. Lovenox 30 mg subcu daily with holding parameters. CODE STATUS: Full code, verified Discharge medication reconciliation done. Discharge follow-up instructions completed. Discharge process discussed with the patient and all questions were answered to patient's satisfaction. Follow with PCP in 1 to 2 weeks Total time spent, exact 35 minutes on discharge meds reconciliation, examination, coordination of care with nurses and ancillary staff, review of imaging and blood test and discussion with the patient on follow-up instructions.
[2024-10-30] MEDS: Tamsulosin HCl 0.4 MG Capsule PO (15:25)
--- NOTE | 2024-10-30 15:27 | CASEMGMT ---
Pt Tay[facility] assurance manager insurance, Kecia, calls this RN CM for an update on the pt plan/ status. Kecia states that she was also on the phone with the pt brother, Carroll, and that Carroll was showing signs of frustration with the assurance manager insurance. Kecia updated with the pt plan of care. Kecia states that she does not believe the pt is safe for DC home. However, the pt is A&Ox3 and the choice is up to the pt. Kecia states understanding and denies further questions at this time and thanks this RN CM for the update.
--- NOTE | 2024-10-30 15:43 | CASEMGMT ---
At this time, all [facility] agencies have declined e/f Advantage. TC to [employer], no answer, VM left. PATEL Eugene planning assistance, states that she is sending the updated insurance information. Care Management to follow. DEMARCO LOVING to pt room at this time. This RN CM updated the pt with this information. Pt states Once my brother gets here, I am going home one way or another. Pt states I don't care if HH gets set up or not, I am going home. This RN CM let the pt know that this RN CM will notify the pt if the [facility] company is able to accept. This RN CM also offered Pvt Duty information. Pt also declines and states that he cannot afford this. This RN CM also discussed with the pt again that he qualifies for a higher level of care and that there is risk for hospital readmission. Pt states that he does not care and wishes to return home once his brother arrives. Pt denies further needs at this time.
--- NOTE | 2024-10-30 16:35 | CASEMGMT ---
HH referral sent to [facility] and [facility]. Noted that pt has [facility] ([id number]). Valorie Calloway DC Planning Asst.
--- NOTE | 2024-10-31 09:14 | CASEMGMT ---
[facility] has accepted pt. VM's left for both pt and his brother (Carroll). Valorie Calloway DC Planning Asst.
--- NOTE | 2024-11-04 16:20 | CCN.REFER ---
PATIENT NOT RETURNING ANY VOICEMAIL AFTER MULTIPLE ATTEMPTS TO REACH PATIENT.
== END 2024-10-30 16:35 | disposition home health service (06) | DRG 291 ==
LOC: ED 20:21 → ICU 21:54
PROVIDERS: Physician Assistant; Admitting Provider Hospitalist; Emergency Provider Emergency Medicine; PCP Family Medicine; Visit Provider Internal Medicine
DX: I13.0 Hypertensive heart and chronic kidney disease with heart failure and stage 1 through stage 4 chronic kidney disease, or unspecified chronic kidney disease (principal); E43 Unspecified severe protein-calorie malnutrition; I50.23 Acute on chronic systolic (congestive) heart failure; Q21.12 Patent foramen ovale; N13.8 Other obstructive and reflux uropathy; J96.11 Chronic respiratory failure with hypoxia; L89.142 Pressure ulcer of left lower back, stage 2; L89.322 Pressure ulcer of left buttock, stage 2; D63.1 Anemia in chronic kidney disease; E11.22 Type 2 diabetes mellitus with diabetic chronic kidney disease; N18.32 Chronic kidney disease, stage 3b; Z93.1 Gastrostomy status; I42.8 Other cardiomyopathies; E11.42 Type 2 diabetes mellitus with diabetic polyneuropathy; E87.5 Hyperkalemia; I25.2 Old myocardial infarction; R54 Age-related physical debility; R13.12 Dysphagia, oropharyngeal phase; Z87.891 Personal history of nicotine dependence; Z86.74 Personal history of sudden cardiac arrest; Z68.21 Body mass index [BMI] 21.0-21.9, adult; Z79.899 Other long term (current) drug therapy; N40.1 Benign prostatic hyperplasia with lower urinary tract symptoms; Z86.16 Personal history of COVID-19
CPT/HCPCS: 36415; 80048; 82962; 85025; 85027; 94640; 94668; 94762; 97116; 97162; 97166; 97530; 97535; 99285; A4216; J1940; J2916

== ENCOUNTER → 2024-11-07 | Outpatient (CLI) | payer OTHER, SELFPAY ==
[2024-11-07 10:54] LABS: Absolute Lymphocyte Count 1.58 X10^3/uL (0.83-4.51); Absolute Neutrophil Count 5.5 X10^3/uL (2.0-7.7); Basophil# 0.07 X10^3/uL; Basophil% 0.8 % (0-1); Eosinophil# 0.59 X10^3/uL; Hematocrit 33.8 % (40-54); Hemoglobin 10.4 g/dL (13.0-16.5); Lymphocyte # 1.58 X10^3/ul (0.83-4.51); Lymphocyte % 18.8 % (19-41); Mean Corp Hgb Conc 30.8 g/dL (32-36); Mean Corpuscular Hgb 27.5 pg (27.0-32.0); Mean Corpuscular Volume 89.4 fL (80-94); Mean Platelet Vol. 8.5 fl (6.2-12.0); Monocyte# 0.65 X10^3/uL; Monocyte% 7.7 % (0-10); NRBC Flagged by Analyzer 0 % (0-5); Neutrophil % 65.5 % (47-70); Platelet Count 341 K/mm3 (150-450); RBC Distribution Width CV 14.9 % (11.6-14.6); RBC Distribution Width SD 48.1 fl (35.1-43.9); Red Blood Count 3.78 M/mm3 (4.6-6.2); White Blood Count 8.4 K/mm3 (4.4-11.0)
[2024-11-07 12:09] LABS: Anion Gap 6 (5-15); BUN 44 mg/dL (7-18); BUN/Creat Ratio 28.2 RATIO (10-20); Calcium,Total 8.8 mg/dL (8.5-10.1); Chloride 103 mmol/L (98-107); Creatinine, Serum 1.56 mg/dL (0.70-1.30); EST Glomerular Filtration Rate 47 mL/min (>60); Est Glom Filt Rate - Afr Amer 57 mL/min (>60); Glucose 129 mg/dL (74-106); Potassium 4.6 mmol/L (3.5-5.1); Sodium Level 137 mmol/L (136-145)
== END | disposition home or self-care (01) ==
PROVIDERS: PCP Family Medicine; Referring Provider Physician Assistant Medical; Visit Provider Physician Assistant Medical
DX: D64.9 Anemia, unspecified (principal); I42.8 Other cardiomyopathies
CPT/HCPCS: 80048; 85025

== ENCOUNTER 2024-11-14 11:15 | Outpatient (RCR) | payer MEDICARE, SELFPAY ==
[2024-10-24 09:10] VITALS: BP 119/95; PULSE 65; RESP 18; TEMP 36.7; BMI 20.3
--- NOTE | 2024-10-24 09:20 | NURSING ---
PEG tube - getting feedings 5am to 5pm
--- NOTE | 2024-10-24 11:45 | HP.PCM_ITS ---
History of Present Illness Date of Service: 10/24/24 Chief Complaint: Bilateral buttock ulcers History of Wound: Mr. Burns is a 69-year-old who was referred from his facility due to nonhealing bilateral buttocks ulcer. Has been present since his hospital admission in September. Had a very eventful hospital stay in September with 3 cardiac arrests. Following stability, he was discharged to a nursing facility where he has been. He states that the current ulcers have been managed by the in-house wound care with debridement, Medihoney and Aquacel Ag without any significant improvement. History of diabetes mellitus, last A1c was at 6.6. Has feeds through his PEG tube, due to dysphagia following dysphagia. He however states that he is able to take by mouth and he states that his appetite is good. History of respiratory failure, currently oxygen dependent. [facility] Medical History (Updated 10/24/24 @ 12:[address] Chaim Suarez MD) Chronic respiratory failure Decubitus ulcer of right buttock, stage 3 Decubitus ulcer of left buttock, 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 Diabetes mellitus, type 2 History of pneumothorax Nonischemic cardiomyopathy Medical non-compliance Congestive heart failure PFO (patent foramen ovale) Cardiac arrest Nephrotic syndrome History of COVID-19 Diabetes Home Medications ?Medication ?Instructions ?Recorded ?Last Taken ?Type aspirin 81 mg tablet,delayed 81 mg PO DAILY 09/17/24 09/17/24 History release albuterol sulfate 2.5 mg/3 mL 2.5 mg (3 mL) inhalation Q2H PRN 10/02/24 Unknown Rx (0.083 %) solution for nebulization PRN SOB &/OR WHEEZING #0 mL chlorhexidine gluconate 2 % 1 towel topical DAILY #0 ea 10/02/24 Unknown Rx towelette dextromethorphan-guaifenesin 30 2 tab PO BID #0 tabs 10/02/24 Unknown Rx mg-600 mg tablet extended [id number] hr (Mucinex DM) hydralazine 10 mg tablet 10 mg G-tube TID #0 tabs 10/02/24 Unknown Rx insulin lispro 100 unit/mL See Protocol subcut Q6 #0 mL 10/02/24 Unknown Rx subcutaneous pen (Humalog KwikPen (U-100) Insulin) ipratropium 0.5 mg-albuterol 3 mg 3 ml inhalation Q4H.RT PRN 10/02/24 Unknown Rx (2.5 mg base)/3 mL nebulization Shortness Of Breath #0 mL soln isosorbide mononitrate 30 mg 30 mg PO DAILY #0 tabs 10/02/24 Unknown Rx tablet,extended release 24 hr metoprolol tartrate 25 mg tablet 25 mg G-tube BID #0 tabs 10/02/24 Unknown Rx tamsulosin 0.4 mg capsule 0.4 mg PO DAILY@1730 #0 caps 10/02/24 Unknown Rx bisacodyl 10 mg rectal suppository 10 mg [place] DAILY PRN constipation 10/17/24 Unknown History (Dulcolax (bisacodyl)) flash glucose scanning reader 10/17/24 Unknown History (FreeStyle Curtis 2 [place]) gabapentin 300 mg capsule 900 mg PO BID 10/17/24 Unknown History IV with Additives 50 mls/hr GT 10/22/24 Unknown Rx acetaminophen 500 mg tablet 1,000 mg (2 x 500 mg) PO Q8 #0 tabs 10/22/24 Unknown Rx arginine 7 gram-glutam 7 1 packet PO BIDCM #0 ea 10/22/24 Unknown Rx gram-CaHMB 1.5 duip-dwkwu-xf-min oral pwd pkt (Kael (with collagen)) furosemide 40 mg tablet 40 mg PO DAILY #0 tabs 10/22/24 Unknown Rx melatonin 3 mg tablet 3 mg PO QHS PRN PRN Insomnia #0 10/22/24 Unknown Rx tabs sodium polystyrene sulfonate 15 60 ml PO QWEEK 8 weeks #480 mL 10/22/24 Unknown Rx gram-sorbitol 20 gram/60 mL oral susp (SPS (with sorbitol)) Allergy/AdvReac Type Severity Reaction Status Date / Time No Known Allergies Allergy Verified 10/24/24 09:10 Family History other Surgical History S/P percutaneous endoscopic gastrostomy (PEG) tube placement History of thoracentesis H/O chest tube placement Hx of thumb surgery Social History housing: [facility] Smoking Status: Former smoker alcohol intake: never substance use type: does not use ROS Constitutional Constitutional: Reports fatigue; Denies daytime sleepiness, frequent falls, headache(s), increased appetite or lethargy Eyes Eyes: Denies blind spots, bloody eye, change in eye color, change in vision, discharge from eye(s) or discongugate gaze ENT HEENT: Denies dysphagia, epistaxis, facial pain, foreign body in nose, headache(s), hearing loss, hoarseness or lip swelling Cardiovascular Cardiovascular: Reports dyspnea at rest, dyspnea on exertion and easily tiring during activity; Denies diaphoresis, edema or erythema on extremities Respiratory/Chest Respiratory/Chest: Reports dyspnea and excessive phlegm production; Denies difficulty clearing secretions, hemoptysis, hoarseness or inability to speak Gastrointestinal Gastrointestinal: Denies abdominal pain, belching, bloating, coffee ground emesis, diarrhea or dry heaves Genitourinary Genitourinary: Reports abdominal discomfort; Denies flank pain, itching or scr otal swelling Musculoskeletal Musculoskeletal: Reports difficulty walking, limited range of motion and muscle weakness; Denies muscle cramps, numbness, tingling or tremors Integumentary Integumentary: Reports skin ulcer; Denies change in hair, furuncle, hirsutism or jaundice Neurologic Neurologic: Denies abnormal speech, behavior changes, confusion, convulsions, disequilibrium or focal weakness Psychiatric Psychiatric: Denies auditory hallucinations, behavioral changes, cognitive impairment, confusion, hallucinations or irritability Endocrine Endocrinology: Denies cold intolerance, deepening of the voice, excessive sweating, fatigue, flushing or increase in ring/shoe/hat size Hematologic/Lymphatic Hematologic/Lymphatic: Denies easy bleeding or easy bruising Allergic/Immunologic Allergic/Immunologic: Denies lip swelling, throat swelling, tongue swelling, hives or urticaria Vital Signs Vital Signs Vital Signs: 10/24/24 09:10 Temperature 98.0 F Temperature Source Temporal Pulse Rate 65 Respiratory Rate 18 Blood Pressure 119/95 H Blood Pressure Mean 103 Blood Pressure Source Monitor Blood Pressure Position Sitting Blood Pressure Location Left Arm Oxygen Delivery Method Nasal Cannula Oxygen Flow Rate (L/min) 2 Weight Weight: 130 lb Body Mass Index (BMI) 20.3 Physical Exam Const alert, oriented x3 and no apparent distress General Appearance: cooperative HEENT normocephalic and head/scalp atraumatic Eyes EOMs intact bilaterally Neck full ROM and supple Resp Effort and Inspection: able to speak in complete sentences and respiratory distress Auscultation: wheezes Cardio regular rate, regular rhythm, S1 normal heart sound and S2 normal heart sound GI soft to palpation and non-distended Extremity no pedal edema Skin Wounds: wounds noted size Size: See clinical note, bed with slough, no odor, open and surrounding erythema Neuro oriented x3, CN's II-XII intact bilaterally and moves all extremities Psych mental status grossly normal, thought process normal, cooperative and affect normal Debridement Note Debridement Note Wound debrided: Left buttock Wound Grade/Stage: Stage III Type of Debridement: Excisional debridement Anesthesia Used: 5% Lidocaine Gel Depth: Down to and including healthy tissue and in the subcutaneous layer Percentage of wound debrided: 100 Instrument Used: 5mm curette Tissue Removed: Slough and devitalized tissue Severity: Fat Layer Exposed Amount of bleeding with debridement: Mild Bleeding Controlled with: Pressure Patient tolerated procedure: Patient tolerated procedure well Post-Debridement Measurements and Additional Note: Post-Debridement Measurements/Treatment - Nurse 1 - General Ulcer Assessment Start: 10/24/24 09:10 Freq: Status: Active Protocol: CINTHIA Activity Type Activity Date Activity User E-sign Co-sign Detail Recorded Client Recorded Date Recorded By Document 10/24/24 09:10 LILIANA [id number] 10/24/24 09:16 DS 10/24/24 09:10 - Today's Visit Information Type of service Initial Visit Arrival Mode Wheelchair Transfer Assistance Manual Patient Identification Verified (Name & Yes ) Patient Requires Transmission-Based No Precautions Safety Precautions Fall Prevention Height and Weight Height 5 ft 7 in Weight 130 lb Weight in Pounds 130.0 lbs Weight Measurement Method Estimated by Patient Body Mass Index (BMI) 20.3 BMI Classification Normal BSA - Gerry 1.68 Vital Signs Temperature (97.8 F-99.1 F) 98.0 F Temperature Source Temporal Pulse Rate (60-100) 65 Pulse Location Monitor Respiratory Rate (12-18) 18 Respiratory rate source Observation Oxygen Delivery Method Nasal Cannula O2 L/MIN 2 Blood Pressure (90/60-120/80) 119/95 H Blood Pressure Mean 103 Source Monitor Position Sitting Blood Pressure Location Left Arm History Since Last Visit- (Skip if this is Patient's initial visit) Left Footwear Other Footwear (Comment) Right Footwear Other Footwear (Comment) Other Footwear SLIPPER SOCKS Pain Scale: 0-10 Numeric Is Patient Pain Free? 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 Forming Required No Able to Read Yes Able to Write Yes Communication Tools None Right Hearing Abillity Normal Left Hearing Abillity Normal Visual Assistive Devices None Teaching Assessment Preferences Verbal,Written, Demonstration Barriers to Learning None Readiness To Learn Good Willingness to Engage in Self Management Med Activies Readiness to Engage in Self Management Med Activities Anxiety Level Calm Cooperation Cooperative Perception Coherent Interest in Health Problem Asks Questions Education Importance Acknowledges Need Does Patient Smoke tobacco or other No substances Smoking Status Former smoker Is Patient Diabetic Yes Functional Assessment Recent Decline in Ability to Perform Ambulation Culture/Christianity/[employer] Worker Cultural/Christianity Needs that may affect No Treatment Plan Teaching: Wound Center *Welcome to the Wound Center -Person Taught Patient,Primary Caregiver -Teaching Method Discussion -Response to teaching Verbalize Understanding CHARMAINE - Nurse 1 - General Ulcer Measurement Start: 10/24/24 09:10 Freq: Status: Active Protocol: Activity Type Activity Date Activity User E-sign Co-sign Detail Recorded Client Recorded Date Recorded By Document 10/24/24 09:23 DS [id number] 10/24/24 09:41 DS 10/24/24 09:23 Wound Center Nurse 1 #1 Left Buttock -Current Size (cm) - Length 5.0 -Current Size (cm) - Width 5.0 -Current Size (cm) - Depth 0.1 -Total Square Cm 25.00 -Date of Last Picture (Recall this 10/24/24 field) -Photo Taken Yes -Tunneling No -Undermining/Tunneling No -Circular Undermining No -Exudate Amt Large -Exudate Type Yellow/Green -Wound Margin Distinct, Outline Attached -Granulation Amt Small (1-33%) -Granulation Quality [place] -Necrosis Amt Large (67-100%) -Necrotic Tissue Type Adherent Slough -Texture (Dania-wound Skin Appearance) Assessed -Moisture (Dania-wound Skin Appearance) Assessed -Color (Dania-wound Skin Appearance) Assessed -Temperature (Dania-wound Skin No Abnormality Appearance) (Pt Warm) -Tenderness on Palpation (Dania-wound No Skin Appearance) -Ulcer Cleansing Soap and Water -Foul Odor after Cleansing No -Anesthetic Used 5% Lidocaine Gel CHARMAINE Gleason Nurse 2 - General Ulcer CM Notes Start: 10/24/24 09:10 Freq: Status: Active Protocol: Activity Type Activity Date Activity User E-sign Co-sign Detail Recorded Client Recorded Date Recorded By Document 10/24/24 09:57 [id number] 10/24/24 10:09 10/24/24 09:57 Wound Center Nurse 2 #2 Right Buttocks -Time 10:07 -Correct Patient Yes -Correct Side, Site, Position Yes -Correct Procedure Yes -Procedure Performed Yes -Type of Procedure Debridement -Clinical Debridement Subcutaneous -Tissue Removed Subcutaneous -Post Debridement (cm) - Length 4.0 -Post Debridement (cm) - Width 1.0 -Post Debridement (cm) - Depth 0.1 -Total Square (Post) (cm) 4.00 -Area of Debridement (cm) - Length 4.0 -Area of Debridement (cm) - Width 1.0 -Total Square (Area) (cm) 4.00 -Tunneling No -Undermining/Tunneling No -Circular Undermining No -Wound/Ulcer Outcome Not Healed -Ulcer Cleansing Rinsed/ Irrigated with Saline -Foul Odor after Cleansing No -Bioengineered Tissue No -Bleeding Controlled with Pressure -Treatment Response Procedure Tolerated Well -Debridement - Subq, 1st 20sq cm No #1 Left Buttock -Time 09:59 -Correct Patient Yes -Correct Side, Site, Position Yes -Correct Procedure Yes -Procedure Performed Yes -Type of Procedure Debridement -Clinical Debridement Subcutaneous -Tissue Removed Subcutaneous -Post Debridement (cm) - Length 5.5 -Post Debridement (cm) - Width 3.5 -Post Debridement (cm) - Depth 0.1 -Total Square (Post) (cm) 19.25 -Area of Debridement (cm) - Length 5.5 -Area of Debridement (cm) - Width 3.5 -Total Square (Area) (cm) 19.25 -Tunneling No -Undermining/Tunneling No -Circular Undermining No -Wound/Ulcer Outcome Not Healed -Ulcer Cleansing Rinsed/ Irrigated with Saline -Foul Odor after Cleansing No -Bioengineered Tissue No -Bleeding Controlled with Pressure -Treatment Response Procedure Tolerated Well -Debridement - Subq, 1st 20sq cm Yes -Debridement, SubQ, ea addt'l 20sq cm 1 or part thereof Pain Scale: 0-10 Numeric Is Patient Pain Free? Yes Additional Wound Wound debrided: Right buttock cluster Wound Grade/Stage: Stage III Type of Debridement: Excisional debridement Anesthesia Used: 5% Lidocaine Gel Depth: Down to and including healthy tissue and in the subcutaneous layer Percentage of wound debrided: 100 Instrument Used: 5mm curette Tissue Removed: Slough and devitalized tissue Severity: Fat Layer Exposed Amount of bleeding with debridement: Mild Bleeding Controlled with: Pressure Patient tolerated procedure: Patient tolerated procedure well Charges/Coding Visit Charges Office Visits / Consults: 55124 OV L4 Est 30min Procedures Integumentary [id number]: [id number] Mendy subq tissue 20 sq cm/< Add On Codes: 91991 Mendy subq tissue add-on (x1. Additional Sq Cm debrided, please refer to clinical note) Assessment/Plan Assessment/Plan (1) Decubitus ulcer of left buttock, stage 3: CODE(S): L89.323 - Pressure ulcer of left buttock, stage 3 (2) Decubitus ulcer of right buttock, stage 3: CODE(S): L89.313 - Pressure ulcer of right buttock, stage 3 (3) Diabetes mellitus, type 2: CODE(S): E11.9 - Type 2 diabetes mellitus without complications (4) Chronic respiratory failure: CODE(S): J96.10 - Chronic respiratory failure, unspecified whether with hypoxia or hypercapnia PLAN: Plan Debridement done as documented above, procedure was well-tolerated. Bilateral buttock ulcers noted, significant slough. Cultures taken following debridement. For now, Santyl to both areas. Cover with moistened gauze and foam dressing. Change daily. Currently has an offloading chair cushion and mattress, continue same. Kael twice daily. Continue PEG feeds and dietary intake per current plan. Continue optimal diabetes control. His questions were answered and he was advised to let us know if he has any further questions or concerns. Follow- up in a week or sooner if needed. This note was generated with Waze dictation software. It may contain incorrect words, spelling, and punctuation that were not noted in checking the note before signing.
--- NOTE | 2024-10-29 09:06 | WC ---
PHOTO 10/24/24 [facility]
--- NOTE | 2024-10-29 09:10 | WC ---
PHOTO [facility] 10/24/24
[2024-11-14 11:48] VITALS: BP 157/64; PULSE 52; RESP 20; TEMP 35.9; BMI 20.3
--- NOTE | 2024-11-14 13:33 | PCM.WC.PN ---
History of Present Illness Date of Service: 11/14/24 Chief Complaint: Bilateral buttock ulcers History of Wound: Mr. Burns is a 69-year-old who was referred from his facility due to nonhealing bilateral buttocks ulcer. Has been present since his hospital admission in September. Had a very eventful hospital stay in September with 3 cardiac arrests. Following stability, he was discharged to a nursing facility where he has been. He states that the current ulcers have been managed by the in-house wound care with debridement, Medihoney and Aquacel Ag without any significant improvement. History of diabetes mellitus, last A1c was at 6.6. Has feeds through his PEG tube, due to dysphagia following dysphagia. He however states that he is able to take by mouth and he states that his appetite is good. History of respiratory failure, currently oxygen dependent. Progress of Wound: Was hospitalized since his last visit, last seen here on 10/24/2024. Right buttock ulcer is healed, left with some improvement. He denies any acute concerns at this time. Objective Data Objective Data Vital Signs: Vital Signs Temp Pulse Resp BP O2 Del Method O2 Flow Rate 96.7 F L 52 L 20 H 157/64 H Nasal Cannula 2.5 11/14/24 11:48 11/14/24 11:48 11/14/24 11:48 11/14/24 11:48 11/14/24 11:48 11/14/24 11:48 Oxygen Flow Rate (L/min) 2.5 Oxygen Delivery Method Nasal Cannula Weight: 130 lb Body Mass Index (BMI) 20.3 Lab / Micro Data Micro: Microbiology 10/24/24 10:02 Wound - Sacral Gram Stain - Final 10/24/24 10:02 Wound - Sacral Wound Culture - Final Staphylococcus haemolyticus Staphylococcus aureus Staphylococcus epidermidis Enterococcus faecalis 10/24/24 10:02 Wound - Sacral Anaerobic Culture - Final No anaerobic bacteria isolated. Charges/Coding Procedures Integumentary [id number]: [id number] Mendy subq tissue 20 sq cm/< Physical Exam Const alert, oriented x3 and no apparent distress General Appearance: cooperative HEENT normocephalic and head/scalp atraumatic Eyes EOMs intact bilaterally Neck full ROM and supple Resp Effort and Inspection: able to speak in complete sentences Extremity no pedal edema Skin Wounds: wounds noted size Size: See clinical note, bed granulating well, no odor, open and surrounding erythema Neuro oriented x3, CN's II-XII intact bilaterally and moves all extremities Psych mental status grossly normal, thought process normal, cooperative and affect normal Debridement Note Debridement Note Wound debrided: Left buttock Type of Debridement: Excisional debridement Anesthesia Used: 5% Lidocaine Gel Depth: Down to and including healthy tissue and in the subcutaneous layer Percentage of wound debrided: 100 Instrument Used: 5mm curette Tissue Removed: Slough and devitalized tissue Severity: Fat Layer Exposed Amount of bleeding with debridement: Mild Bleeding Controlled with: Compression and gauze Patient tolerated procedure: Patient tolerated procedure well Post-Debridement Measurements and Additional Note: Post-Debridement Measurements/Treatment - Nurse 1 - General Ulcer Assessment Start: 10/24/24 09:10 Freq: Status: Active Protocol: CINTHIA Activity Type Activity Date Activity User E-sign Co-sign Detail Recorded Client Recorded Date Recorded By Document 10/24/24 09:10 DS [id number] 10/24/24 09:16 DS Document 11/14/24 11:48 DS [id number] 11/14/24 11:57 DS 10/24/24 11/14/24 09:10 11:48 - Today's Visit Information Type of service Initial Visit Follow-up Visit (Physician/CHARGEMASTER ANALYST ) Arrival Mode Wheelchair Ambulatory, Wheelchair Transfer Assistance Manual Patient Identification Verified (Name & Yes Yes ) Patient Requires Transmission-Based No No Precautions Safety Precautions Fall Prevention Fall Prevention Height and Weight Height 5 ft 7 in Weight 130 lb Weight in Pounds 130.0 lbs Weight Measurement Method Estimated by Patient Body Mass Index (BMI) 20.3 20.3 BMI Classification Normal Normal BSA - Gerry 1.68 Vital Signs Temperature (97.8 F-99.1 F) 98.0 F 96.7 F L Temperature Source Temporal Temporal Pulse Rate (60-100) 65 52 L Pulse Location Monitor Monitor Respiratory Rate (12-18) 18 20 H Respiratory rate source Observation Observation Oxygen Delivery Method Nasal Cannula Nasal Cannula O2 L/MIN (L/min) 2 2.5 Blood Pressure (90/60-120/80) 119/95 H 157/64 H Blood Pressure Mean (mm Hg) 103 95 Source Monitor Monitor Position Sitting Sitting Blood Pressure Location Left Arm Right Arm History Since Last Visit- (Skip if this is Patient's initial visit) Have you changed medications since your No last visit? Any new allergies or adverse reactions No Had a fall/change in ADL's that may No increase risk of falls Signs or symptoms of abuse and/or No neglect since last visit Have you been in the hospital since your No last visit? Has dressing in place as prescribed Yes Has compression in place as prescribed N/A Has offloadiing in place as prescribed N/A Experienced any changes in pain level or No management Left Footwear Other Footwear Regular Shoe (Comment) Right Footwear Other Footwear Regular Shoe (Comment) Other Footwear SLIPPER SOCKS Pain Scale: 0-10 Numeric Is Patient Pain Free? Yes Yes Communication Assessment Preferred language Eritrean Ex Assistant/Program Director Required No Able to Read Yes Able to Write Yes Communication Tools None Right Hearing Abillity Normal Left Hearing Abillity Normal Visual Assistive Devices None Teaching Assessment Preferences Verbal,Written, Demonstration Barriers to Learning None Readiness To Learn Good Willingness to Engage in Self Management Med Activies Readiness to Engage in Self Management Med Activities Anxiety Level Calm Cooperation Cooperative Perception Coherent Interest in Health Problem Asks Questions Education Importance Acknowledges Need Does Patient Smoke tobacco or other No substances Smoking Status Former smoker Is Patient Diabetic Yes Functional Assessment Recent Decline in Ability to Perform Ambulation Culture/Pentecostalism/Director Life Cultural/Pentecostalism Needs that may affect No Treatment Plan Teaching: Wound Center *Welcome to the Wound Center -Person Taught Patient,Primary Caregiver -Teaching Method Discussion -Response to teaching Verbalize Understanding - Nurse 1 - General Ulcer Measurement Start: 10/24/24 09:10 Freq: Status: Active Protocol: Activity Type Activity Date Activity User E-sign Co-sign Detail Recorded Client Recorded Date Recorded By Document 10/24/24 09:23 DS [id number] 10/24/24 09:41 DS Document 11/14/24 11:48 DS [id number] 11/14/24 11:57 DS 10/24/24 11/14/24 09:23 11:48 Wound Center Nurse 1 #1 Left Buttock -Current Size (cm) - Length 5.0 3.5 -Current Size (cm) - Width 5.0 2.5 -Current Size (cm) - Depth 0.1 0.1 -Total Square Cm 25.00 8.75 -Date of Last Picture (Recall this 10/24/24 field) -Photo Taken Yes No -Tunneling No No -Undermining/Tunneling No No -Circular Undermining No No -Exudate Amt Large Medium -Exudate Type Yellow/Green Yellow/Green -Wound Margin Distinct, Distinct, Outline Outline Attached Attached -Granulation Amt Small (1-33%) Medium (34-66%) -Granulation Quality [place] -Necrosis Amt Large (67-100%) Medium (34-66%) -Necrotic Tissue Type Adherent Slough Adherent Slough -Texture (Dania-wound Skin Appearance) Assessed Assessed -Moisture (Dania-wound Skin Appearance) Assessed Assessed -Color (Dania-wound Skin Appearance) Assessed Assessed -Temperature (Danai-wound Skin No Abnormality No Abnormality Appearance) (Pt Warm) (Pt Warm) -Tenderness on Palpation (Dania-wound No No Skin Appearance) -Ulcer Cleansing Soap and Water Soap and Water -Foul Odor after Cleansing No No -Anesthetic Used 5% Lidocaine 5% Lidocaine Gel Gel WC - Nurse 2 - General Ulcer CM Notes Start: 10/24/24 09:10 Freq: Status: Active Protocol: Activity Type Activity Date Activity User E-sign Co-sign Detail Recorded Client Recorded Date Recorded By Document 10/24/24 09:57 [id number] 10/24/24 10:09 Document 11/14/24 12:04 [id number] 11/14/24 12:06 10/24/24 11/14/24 09:57 12:04 Wound Center Nurse 2 #2 Right Buttocks -Time 10:07 12:04 -Correct Patient Yes Yes -Correct Side, Site, Position Yes Yes -Correct Procedure Yes No -Procedure Performed Yes No -Type of Procedure Debridement -Clinical Debridement Subcutaneous -Tissue Removed Subcutaneous -Post Debridement (cm) - Length 4.0 -Post Debridement (cm) - Width 1.0 -Post Debridement (cm) - Depth 0.1 -Total Square (Post) (cm) 4.00 -Area of Debridement (cm) - Length 4.0 -Area of Debridement (cm) - Width 1.0 -Total Square (Area) (cm) 4.00 -Tunneling No No -Undermining/Tunneling No No -Circular Undermining No No -Wound/Ulcer Outcome Not Healed Healed- Epithelialized -Ulcer Cleansing Rinsed/ Irrigated with Saline -Foul Odor after Cleansing No -Bioengineered Tissue No -Bleeding Controlled with Pressure -Treatment Response Procedure Tolerated Well -Debridement - Subq, 1st 20sq cm No #1 Left Buttock -Time 09:59 12:05 -Correct Patient Yes Yes -Correct Side, Site, Position Yes Yes -Correct Procedure Yes Yes -Procedure Performed Yes Yes -Type of Procedure Debridement Debridement -Clinical Debridement Subcutaneous Subcutaneous -Tissue Removed Subcutaneous Subcutaneous -Post Debridement (cm) - Length 5.5 3.5 -Post Debridement (cm) - Width 3.5 2.6 -Post Debridement (cm) - Depth 0.1 0.1 -Total Square (Post) (cm) 19.25 9.10 -Area of Debridement (cm) - Length 5.5 3.5 -Area of Debridement (cm) - Width 3.5 2.6 -Total Square (Area) (cm) 19.25 9.10 -Tunneling No No -Undermining/Tunneling No No -Circular Undermining No No -Wound/Ulcer Outcome Not Healed Not Healed -Ulcer Cleansing Rinsed/ Rinsed/ Irrigated with Irrigated with Saline Saline -Foul Odor after Cleansing No No -Bioengineered Tissue No No -Bleeding Controlled with Pressure Pressure -Treatment Response Procedure Procedure Tolerated Well Tolerated Well -Debridement - Subq, 1st 20sq cm Yes Yes -Debridement, SubQ, ea addt'l 20sq cm 1 or part thereof Pain Scale: 0-10 Numeric Is Patient Pain Free? Yes Yes - Nurse 3 - General Ulcer D/C NN Start: 10/24/24 09:10 Freq: Status: Active Protocol: Activity Type Activity Date Activity User E-sign Co-sign Detail Recorded Client Recorded Date Recorded By Document 11/14/24 12:23 [id number] 11/14/24 12:24 11/14/24 12:23 Wound Care Center Nurse 3 #1 Left Buttock -Primary Dressing Applied Silicone Border Foam 6x6 -Other Dressing SANTYL, APPLY HYDROGEL TODAY -Silicone Border Foam 6x6 1 Pain Scale: 0-10 Numeric Is Patient Pain Free? Yes - Visit Discharge Discharge Condition Stable Ambulatory Status Wheelchair Transportation Private Auto Medication Reconcilliation completed & No provided to patient/care provider Clinical Summary of Care Provided Yes Assessment/Plan Assessment/Plan (1) Decubitus ulcer of left buttock, stage 3: CODE(S): L89.323 - Pressure ulcer of left buttock, stage 3 (2) Decubitus ulcer of right buttock, stage 3: CODE(S): L89.313 - Pressure ulcer of right buttock, stage 3 (3) Diabetes mellitus, type 2: CODE(S): E11.9 - Type 2 diabetes mellitus without complications (4) Chronic respiratory failure: CODE(S): J96.10 - Chronic respiratory failure, unspecified whether with hypoxia or hypercapnia PLAN: Plan Debridement done as documented above, procedure was well-tolerated. Very good improvement since his last visit. Right buttock ulcer is healed, left improved. Continue Santyl to left buttock ulcer, cover with moistened gauze and foam dressing, change daily. Continue offloading. Kael twice daily. Continue optimal diabetes control and other chronic management.. His questions were answered and he was advised to let us know if he has any further questions or concerns. Follow-up in 2 weeks or sooner if needed. This note was generated with [employer] dictation software. It may contain incorrect words, spelling, and punctuation that were not noted in checking the note before signing.
== END 2024-11-15 23:59 | disposition home or self-care (01) ==
LOC: WC 11:15
PROVIDERS: PCP Family Medicine; Referring Provider Internal Medicine; Visit Provider Internal Medicine
DX: L89.323 Pressure ulcer of left buttock, stage 3 (principal); L89.313 Pressure ulcer of right buttock, stage 3; Z93.1 Gastrostomy status; J96.10 Chronic respiratory failure, unspecified whether with hypoxia or hypercapnia; E11.9 Type 2 diabetes mellitus without complications; Z79.4 Long term (current) use of insulin; R13.10 Dysphagia, unspecified; Z87.891 Personal history of nicotine dependence; Z99.81 Dependence on supplemental oxygen; Z86.16 Personal history of COVID-19; Q21.12 Patent foramen ovale; Z79.82 Long term (current) use of aspirin; Z86.74 Personal history of sudden cardiac arrest
CPT/HCPCS: 11042; 11045; 87070; 87075; 87077; 87186; 87205; 99213; 99214; G0463

== ENCOUNTER 2024-11-21 09:13 | Outpatient (RCR) | payer MEDICARE, SELFPAY ==
[2024-11-16 02:32] VITALS: BP 157/64; PULSE 52; RESP 20; TEMP 35.9; BMI 20.3
[2024-11-21 09:25] VITALS: BP 130/57; PULSE 66; RESP 18; TEMP 35.9; BMI 20.3
--- NOTE | 2024-11-21 12:51 | PCM.WC.PN ---
History of Present Illness Date of Service: 11/21/24 Chief Complaint: Bilateral buttock ulcers History of Wound: Mr. Burns is a 69-year-old who was referred from his facility due to nonhealing bilateral buttocks ulcer. Has been present since his hospital admission in September. Had a very eventful hospital stay in September with 3 cardiac arrests. Following stability, he was discharged to a nursing facility where he has been. He states that the current ulcers have been managed by the in-house wound care with debridement, Medihoney and Aquacel Ag without any significant improvement. History of diabetes mellitus, last A1c was at 6.6. Has feeds through his PEG tube, due to dysphagia following dysphagia. He however states that he is able to take by mouth and he states that his appetite is good. History of respiratory failure, currently oxygen dependent. Progress of Wound: No new concerns reported at this time. Some improvement noted. Has home health come in 3 times a week and in between, he states that he is able to do the dressing himself. Objective Data Objective Data Vital Signs: Vital Signs Temp Pulse Resp BP O2 Del Method O2 Flow Rate 96.7 F L 66 18 130/57 H Room Air 2.5 11/21/24 09:25 11/21/24 09:25 11/21/24 09:25 11/21/24 09:25 11/21/24 09:25 11/16/24 02:32 Oxygen Flow Rate (L/min) 2.5 Oxygen Delivery Method Room Air Weight: 130 lb Body Mass Index (BMI) 20.3 Charges/Coding Procedures Integumentary [id number]: [id number] Mendy subq tissue 20 sq cm/< Physical Exam Const alert, oriented x3 and no apparent distress General Appearance: cooperative HEENT normocephalic and head/scalp atraumatic Eyes EOMs intact bilaterally Neck full ROM and supple Resp Effort and Inspection: able to speak in complete sentences Extremity no pedal edema Skin Wounds: wounds noted size Size: See clinical note, bed granulating well, no odor, open and surrounding erythema Neuro oriented x3, CN's II-XII intact bilaterally and moves all extremities Psych mental status grossly normal, thought process normal, cooperative and affect normal Debridement Note Debridement Note Wound debrided: Left buttock Wound Grade/Stage: Stage III Type of Debridement: Excisional debridement Anesthesia Used: 5% Lidocaine Gel Depth: Down to and including healthy tissue and in the subcutaneous layer Percentage of wound debrided: 100 Instrument Used: 5mm curette Tissue Removed: Slough and devitalized tissue Severity: Fat Layer Exposed Amount of bleeding with debridement: Mild Bleeding Controlled with: Pressure Patient tolerated procedure: Patient tolerated procedure well Post-Debridement Measurements and Additional Note: Post-Debridement Measurements/Treatment CHARMAINE - Nurse 1 - General Ulcer Assessment Start: 11/21/24 09:22 Freq: Status: Active Protocol: CINTHIA Activity Type Activity Date Activity User E-sign Co-sign Detail Recorded Client Recorded Date Recorded By Document 11/21/24 09:25 KW [id number] 11/21/24 09:30 KW 11/21/24 09:25 WC - Today's Visit Information Type of service Follow-up Visit (Physician/[employer] [id number] ) Arrival Mode Wheelchair Patient Identification Verified (Name & Yes ) Height and Weight Body Mass Index (BMI) 20.3 BMI Classification Normal Vital Signs Temperature (97.8 F-99.1 F) 96.7 F L Temperature Source Temporal Pulse Rate (60-100) 66 Pulse Location Monitor Respiratory Rate (12-18) 18 Respiratory rate source Observation Oxygen Delivery Method Room Air Blood Pressure (90/60-120/80) 130/57 H Blood Pressure Mean (mm Hg) 81 Source Monitor Position Semi-Fowlers Blood Pressure Location Left Arm History Since Last Visit- (Skip if this is Patient's initial visit) Have you changed medications since your No last visit? Any new allergies or adverse reactions No Had a fall/change in ADL's that may No increase risk of falls Signs or symptoms of abuse and/or No neglect since last visit Have you been in the hospital since your No last visit? Has dressing in place as prescribed Yes Has compression in place as prescribed N/A Has offloadiing in place as prescribed N/A Experienced any changes in pain level or No management Left Footwear Regular Shoe Right Footwear Regular Shoe Pain Scale: 0-10 Numeric Is Patient Pain Free? Yes Victorino Nurse 1 - General Ulcer Measurement Start: 11/21/24 09:22 Freq: Status: Active Protocol: Activity Type Activity Date Activity User E-sign Co-sign Detail Recorded Client Recorded Date Recorded By Document 11/21/24 09:25 KW [id number] 11/21/24 09:30 KW 11/21/24 09:25 Wound Center Nurse 1 #1 Left Buttock -Current Size (cm) - Length 3 -Current Size (cm) - Width 1.5 -Current Size (cm) - Depth 0.1 -Total Square Cm 4.5 -Date of Last Picture (Recall this 11/21/24 field) -Exudate Amt Small -Exudate Type Serosanguineous -Wound Margin Distinct, Outline Attached -Granulation Amt Large (67-100%) -Granulation Quality Red -Texture (Dania-wound Skin Appearance) Assessed -Moisture (Dania-wound Skin Appearance) Assessed -Color (Dania-wound Skin Appearance) Assessed -Temperature (Dania-wound Skin No Abnormality Appearance) (Pt Warm) -Tenderness on Palpation (Dania-wound No Skin Appearance) -Ulcer Cleansing Rinsed/ Irrigated with Saline -Foul Odor after Cleansing No -Anesthetic Used 5% Lidocaine Gel WC - Nurse 2 - General Ulcer CM Notes Start: 11/21/24 09:22 Freq: Status: Active Protocol: Activity Type Activity Date Activity User E-sign Co-sign Detail Recorded Client Recorded Date Recorded By Document 11/21/24 09:43 [id number] 11/21/24 09:46 11/21/24 09:43 Wound Center Nurse 2 -Time 09:44 -Correct Patient Yes -Correct Side, Site, Position Yes -Correct Procedure Yes -Procedure Performed Yes -Type of Procedure Debridement -Clinical Debridement Subcutaneous -Tissue Removed Subcutaneous -Post Debridement (cm) - Length 2.7 -Post Debridement (cm) - Width 1.5 -Post Debridement (cm) - Depth 0.1 -Total Square (Post) (cm) 4.05 -Area of Debridement (cm) - Length 2.7 -Area of Debridement (cm) - Width 1.5 -Total Square (Area) (cm) 4.05 -Tunneling No -Undermining/Tunneling No -Circular Undermining No -Wound/Ulcer Outcome Not Healed -Ulcer Cleansing Rinsed/ Irrigated with Saline -Foul Odor after Cleansing No -Bioengineered Tissue No -Bleeding Controlled with Pressure -Treatment Response Procedure Tolerated Well -Debridement - Subq, 1st 20sq cm Yes Pain Scale: 0-10 Numeric Is Patient Pain Free? Yes WC - Nurse 3 - General Ulcer D/C NN Start: 11/21/24 09:22 Freq: Status: Active Protocol: Activity Type Activity Date Activity User E-sign Co-sign Detail Recorded Client Recorded Date Recorded By Document 11/21/24 10:07 SADIE [id number] 11/21/24 10:08 RB 11/21/24 10:07 Wound Care Center Nurse 3 #1 Left Buttock -Ulcer Cleansing Rinsed/ Irrigated with Saline -Primary Dressing Applied Silicone Border Foam 4x4 -Other Dressing hydrogel -Silicone Border Foam 4x4 1 Treatment Response Procedure Tolerated Well Pain Scale: 0-10 Numeric Is Patient Pain Free? Yes WC - Visit Discharge Discharge Condition Stable Ambulatory Status Wheelchair Transportation Private Auto Medication Reconcilliation completed & No provided to patient/care provider Clinical Summary of Care Provided Yes Assessment/Plan Assessment/Plan (1) Decubitus ulcer of left buttock, stage 3: CODE(S): L89.323 - Pressure ulcer of left buttock, stage 3 (2) Decubitus ulcer of right buttock, stage 3: CODE(S): L89.313 - Pressure ulcer of right buttock, stage 3 (3) Diabetes mellitus, type 2: CODE(S): E11.9 - Type 2 diabetes mellitus without complications (4) Chronic respiratory failure: CODE(S): J96.10 - Chronic respiratory failure, unspecified whether with hypoxia or hypercapnia PLAN: Plan Debridement done as documented above, procedure was well-tolerated. Continues to show good improvement, right buttock stays healed. Continue Santyl to left buttock ulcer, cover with moistened gauze and foam dressing, change daily. Continue offloading. Kael twice daily. Continue optimal diabetes control and other chronic management. His questions were answered and he was advised to let us know if he has any further questions or concerns. Unable to come in next week due to a prior scheduled appointment. He states that he cannot come in on other days of the week due to transportation. Follow-up in 3 weeks, he was advised to call if any worsening is noted. This will also be communicated to home health. This note was generated with [employer] software. It may contain incorrect words, spelling, and punctuation that were not noted in checking the note before signing.
--- NOTE | 2024-11-22 12:35 | WC ---
PHOTO 11/21/24 LEFT BUTTOCK/RIGHT BUTTOCK
== END 2024-12-13 11:07 | disposition home or self-care (01) ==
LOC: WC 09:13
PROVIDERS: PCP Family Medicine; Referring Provider Internal Medicine; Visit Provider Internal Medicine
DX: L89.323 Pressure ulcer of left buttock, stage 3 (principal); Z93.1 Gastrostomy status; J96.10 Chronic respiratory failure, unspecified whether with hypoxia or hypercapnia; E11.9 Type 2 diabetes mellitus without complications; R13.10 Dysphagia, unspecified; Z99.81 Dependence on supplemental oxygen; Z86.74 Personal history of sudden cardiac arrest
CPT/HCPCS: 11042

== ENCOUNTER 2024-12-05 05:39 | Day surgery (SDC) | payer MEDICARE, SELFPAY ==
--- NOTE | 2024-12-03 17:56 | PAT.ANESEVAL ---
Pre-Assessment Diagnosis/Proposed Procedure Planned Operative Procedure(s): EGD Anesthesia History Anesthesia History - health services manager: Anesthesia History - health services manager Hx Hospitalization Yes: 09/2024 heart attack 12/02/24 16:17 Any Problems With Anesthesia No 12/02/24 16:17 Cholinesterase deficiency No 12/02/24 16:17 You/Your Family Experience No 12/02/24 16:17 fever (hyperthermia) with Relationship Recent Exposure to Contagious No 09/26/24 14:44 Disease Does patient have nerve No 12/02/24 16:17 stimulator Patient instructed to have device shut off --Does patient have Pacemaker or ICD? When Was Last Pacemaker Check QUESTION #4 FULL TEXT: You/Your Family Experience fever (hyperthermia) with Anesthesia Last Oral Intake Last Oral intake: Last Oral Intake NPO since Meds taken in AM with sips of water? Meds patient instructed to take am of surgery PONV PONV - health services manager: PONV - health services manager Female No 12/02/24 16:17 HX of Motion Sickness No 12/02/24 16:17 HX of N/V After Surgery No 12/02/24 16:17 Non-Smoker Yes 12/02/24 16:17 Duration of Surgery greater No 12/02/24 16:17 than 60 minutes Number of Risk Factors 1 12/02/24 16:17 PONV Score Low Risk 12/02/24 16:17 Height & Weight Height & Weight: Anesthesia: Height & Weight Height 5 ft 7 in 11/14/24 09:20 Respiratory Assessment Respiratory Assessment - health services manager: Respiratory Tract Infection Hx - health services manager Hx Respiratory Tract Infection No 12/02/24 16:17 STOP Sleep Apnea STOP Sleep Apnea - health services manager: STOP Sleep Apnea - health services manager Hx Hypertension Yes 12/02/24 16:17 Hx Sleep Apnea No 12/02/24 16:17 CPAP BIPAP Do you snore loudly (louder No 12/02/24 16:17 than talking or can be heard Do you often feel tired/ No 12/02/24 16:17 fatigued/ sleepy during daytime? Has anyone observed you stop No 12/02/24 16:17 breathing during sleep? STOP Results Negative 12/02/24 16:17 QUESTION #5 FULL TEXT : Do you snore loudly (louder than talking or can be heard through closed doors)? 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 Specify any problems Hx of Preganancy in last 3 N/A 12/02/24 16:17 Months Nurse Filling Out Transfusion [id number] 12/02/24 16:17 & Questions: Date: 12/02/24 12/02/24 16:17 Time: 16:20 12/02/24 16:17 Patient unable to answer at this time (ie. confused, unrespo /Reproduction History /Reproductive History - health services manager: /Reproductive Hx- health services manager Hx Now Gestational Age (in weeks): EDC: Hx Hx Para Hx Section SAB No 09/26/24 14:44 PFSH Medical History (Updated 12/02/24 @ 16:28 by Una Avina) Wears partial dentures History of alcohol use Back pain On home oxygen therapy Former smoker Asthma History of edema Hypertension History of echocardiogram Cardiology follow-up encounter Neuropathy Acute HFrEF (heart failure with reduced ejection fraction) Chronic kidney disease Chronic respiratory failure Decubitus ulcer of right buttock, stage 3 Decubitus ulcer of left buttock, 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 Diabetes mellitus, type 2 History of pneumothorax Nonischemic cardiomyopathy Nephrotic syndrome Congestive heart failure PFO (patent foramen ovale) Cardiac arrest Medical non-compliance History of COVID-19 Diabetes Home Medications ?Medication ?Instructions ?Recorded ?Last Taken ?Type flash glucose scanning reader 10/17/24 Unknown History (Curioyle Curtis [address] [place]) furosemide 40 mg tablet 40 mg PO BID #180 tabs 11/07/24 Unknown Rx isosorbide mononitrate 30 mg 30 mg PO DAILY #90 tabs 11/07/24 Unknown Rx tablet,extended release 24 hr hydralazine 10 mg tablet 10 mg PO TID 12/02/24 Unknown History insulin lispro 100 unit/mL 2 unit subcut Q6H PRN hyperglycemia 12/02/24 Unknown History subcutaneous solution (Humalog U-100 Insulin) metoprolol tartrate 25 mg tablet 25 mg PO BID 12/02/24 Unknown History Allergy/AdvReac Type Severity Reaction Status Date / Time No Known Allergies Allergy Verified 12/02/24 16:10 Surgical History S/P percutaneous endoscopic gastrostomy (PEG) tube placement History of thoracentesis H/O chest tube placement Hx of thumb surgery Social History housing: [facility] Smoking Status: Former smoker alcohol intake: never substance use type: does not use Audit: Pertinent Findings Pertinent Findings EKG Perinent findings: October 27, 2024. Normal sinus rhythm. Incomplete right bundle branch block. Echo (EF%) pertinent findings: September 18, 2024. Ejection fraction is 35%. Severe global hypokinesis of the left ventricle. PA systolic pressure is 45 to 50 mmHg. There is no aortic stenosis noted. Bubble contrast study is positive for a PFO. Consult pertinent findings: November 07, 2024. Sharon FAY. 1. Nonischemic cardiomyopathy-patient does not have any symptoms of congestive heart failure. Continue with current medical management. Labs today to reassess renal function. 2. Chronic anemia obtain labs to see if his anemia is any better. Pulmonary function results/spirometer pertinent findings: Chest x-ray. October 27, 2024. Grossly stable bilateral pleural effusions associated with the new bibasilar opacities which may be secondary to pneumonia and/or atelectasis. Additional pertinent findings: CT angiogram of the chest with and without contrast. September 19, 2024. No evidence of pulmonary embolism. Large bilateral pleural effusions right greater than left with bibasilar compressive atelectasis. Coronary artery calcification. Current Visit Impressions Current Visit Impressions: Patient has a positive PFO?all IVs need to be completely de bubbled. Previous endoscopy with PEG tube placement September 26, 2024. Patient was relatively stable through operative procedure. Recommendation Anesthesia Recommendation Anesthesia recommendation: OPTIMIZED for anesthesia (Patient recently had a [place] in September 2024 and was coded intubated and in the ICU. Patient is an ASA 4. He is as good as he is going to get.)
[2024-12-05] VITALS (9 sets, daily range): BP systolic 86–157; BP diastolic 45–62; PULSE 48–51; RESP 14–18; TEMP 36.2–36.7; O2SAT 98–100; BMI 18.3
--- NOTE | 2024-12-05 06:23 | PCM.PRE.AN2 ---
ASA Classification* ASA Classification ASA Classification: 3 Assessment & Plan Anesthesia* Anesthesia Assessment Anesthesia Assessment: Discussed sedation and/or anesthesia options, risks, benefits, and alternatives with patient/parents/legal guardian/POA. Questions invited. The patient/parents/legal guardian/POA seems to understand and agrees to proceed with anesthesia plan. Reviewed the physical assessment, medical history, allergy history and patient home medications list prior to surgery/procedure/anesthetic and documented any changes. Performed airway and anesthesia risk assessments. Anesthesia Type Anesthesia Type: MAC History Source History Obtained from:: Patient and Chart Anesthesia Focused Assessment* Temperature: 97.9 F Pulse Rate: 51 Blood Pressure: 157/62 Respiratory Rate: 16 Pulse Ox: 100 Oxygen Delivery Method: Room Air Airway Assessment Mouth opens: >3 cm Mallampati Score: II Teeth Condition: Partial (Patient has upper and lower partials. They are currently in. Patient says they are tight.) Neck Range of motion (ROM): Full ROM Focused Labs Anesthesia Preop lab: CBC WBC 8.4 K/mm3 (4.4-11.0) 11/07/24 10:11/07/24 RBC 3.78 M/mm3 (4.6-6.2) L 11/07/24 10:11/07/24 Hgb 10.4 g/dL (13.0-16.5) L 11/07/24 10:24 11/07/24 Hct 33.8 % (40-54) L 11/07/24 10:24 11/07/24 Plt Count 341 K/mm3 (150-450) 11/07/24 10:11/07/24 CHEMISTRY Potassium 4.6 mmol/L (3.5-5.1) 11/07/24 10:11/07/24 Sodium 137 mmol/L (136-145) 11/07/24 10:11/07/24 Magnesium 2.3 mg/dL (1.6-2.6) 10/19/24 06:22 10/19/24 Phosphorus 6.6 mg/dL (2.5-4.9) H 10/19/24 06:22 10/19/24 BUN 44 mg/dL (7-18) H 11/07/24 10:24 11/07/24 Creatinine 1.56 mg/dL (0.70-1.30) H 11/07/24 10:24 11/07/24 Glucose 129 mg/dL (74-106) H 11/07/24 10:24 11/07/24 POC Glucose 99 mg/dL (74-106) 10/30/24 06:25 10/30/24 TSH 8.590 uIU/mL (0.358-3.740) H 09/16/24 11:22 09/16/24 COAG PT 15.8 SECONDS (11.7-14.9) H 10/18/24 07:45 10/18/24 Pre-Assessment Diagnosis/Proposed Procedure Planned Operative Procedure(s): EGD Anesthesia History Anesthesia History - manager transfusion: Anesthesia History - manager transfusion Hx Hospitalization Yes: 09/2024 heart attack 12/02/24 16:17 Any Problems With Anesthesia No 12/02/24 16:17 Cholinesterase deficiency No 12/02/24 16:17 You/Your Family Experience No 12/02/24 16:17 fever (hyperthermia) with Relationship Recent Exposure to Contagious No 12/05/24 06:09 Disease Does patient have nerve No 12/02/24 16:17 stimulator Patient instructed to have device shut off --Does patient have Pacemaker No 12/05/24 06:09 or ICD? When Was Last Pacemaker Check QUESTION #4 FULL TEXT: You/Your Family Experience fever (hyperthermia) with Anesthesia Last Oral Intake Last Oral intake: Last Oral Intake NPO since 23:00 12/05/24 06:09 Meds taken in AM with sips of Yes 12/05/24 06:09 water? Meds patient instructed to see med list 12/05/24 06:09 take am of surgery Any additional information?: Yes Meds taken in AM with sips of water?: Yes PONV PONV - manager transfusion: PONV - manager transfusion Female No 12/02/24 16:17 HX of Motion Sickness No 12/02/24 16:17 HX of N/V After Surgery No 12/02/24 16:17 Non-Smoker Yes 12/02/24 16:17 Duration of Surgery greater No 12/02/24 16:17 than 60 minutes Number of Risk Factors 1 12/02/24 16:17 PONV Score Low Risk 12/02/24 16:17 Height & Weight Height & Weight: Anesthesia: Height & Weight Height 5 ft 7 in 12/05/24 06:09 Weight: 53 kg 12/05/24 06:09 Body Mass Index (BMI) 18.3 12/05/24 06:09 Respiratory Assessment Respiratory Assessment - manager transfusion: Respiratory Tract Infection Hx - manager transfusion Hx Respiratory Tract Infection No 12/02/24 16:17 STOP Sleep Apnea STOP Sleep Apnea - manager transfusion: STOP Sleep Apnea - manager transfusion Hx Hypertension Yes 12/02/24 16:17 Hx Sleep Apnea No 12/02/24 16:17 CPAP BIPAP Do you snore loudly (louder No 12/02/24 16:17 than talking or can be heard Do you often feel tired/ No 12/02/24 16:17 fatigued/ sleepy during daytime? Has anyone observed you stop No 12/02/24 16:17 breathing during sleep? STOP Results Negative 12/02/24 16:17 QUESTION #5 FULL TEXT : Do you snore loudly (louder than talking or can be heard through closed doors)? 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 Specify any problems Hx of Preganancy in last 3 N/A 12/02/24 16:17 Months Nurse Filling Out Transfusion [email or web address] 12/02/24 16:17 & Questions: Date: 12/02/24 12/02/24 16:17 Time: 16:20 12/02/24 16:17 Patient unable to answer at this time (ie. confused, unrespo /Reproduction History /Reproductive History - manager transfusion: /Reproductive Hx- manager transfusion Hx Now Gestational Age (in weeks): EDC: Hx Hx Para Hx Section SAB No 09/26/24 14:44 PFS Medical History Wears partial dentures History of alcohol use Back pain On home oxygen therapy Former smoker Asthma History of edema Hypertension History of echocardiogram Cardiology follow-up encounter Neuropathy Acute HFrEF (heart failure with reduced ejection fraction) Chronic kidney disease Chronic respiratory failure Decubitus ulcer of right buttock, stage 3 Decubitus ulcer of left buttock, 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 Diabetes mellitus, type 2 History of pneumothorax Nonischemic cardiomyopathy Nephrotic syndrome Congestive heart failure PFO (patent foramen ovale) Cardiac arrest Medical non-compliance History of COVID-19 Diabetes Home Medications ?Medication ?Instructions ?Recorded ?Last Taken ?Type flash glucose scanning reader 10/17/24 Unknown History ([employer] [facility] [address] [place]) furosemide 40 mg tablet 40 mg PO BID #180 tabs 11/07/24 Unknown Rx isosorbide mononitrate 30 mg 30 mg PO DAILY #90 tabs 11/07/24 12/05/24 Rx tablet,extended release 24 hr hydralazine 10 mg tablet 10 mg PO TID 12/02/24 12/05/24 History insulin lispro 100 unit/mL 2 unit subcut Q6H PRN hyperglycemia 12/02/24 Unknown History subcutaneous solution (Humalog U-100 Insulin) metoprolol tartrate 25 mg tablet 25 mg PO BID 12/02/24 12/05/24 History Allergy/AdvReac Type Severity Reaction Status Date / Time No Known Allergies Allergy Verified 12/05/24 06:08 Surgical History S/P percutaneous endoscopic gastrostomy (PEG) tube placement History of thoracentesis H/O chest tube placement Hx of thumb surgery Social History housing: longterm Smoking Status: Former smoker alcohol intake: never substance use type: does not use Review of Systems (Anesthesia) ROS Narrative System reviewed and no additional complaints, except as documented.
[2024-12-05 06:32] LABS: Bedside Glucose 118 mg/dL (74-106)
--- NOTE | 2024-12-05 07:16 | HP.PCM_ITS ---
HPI - General General Date of Admission: 12/05/24 Date of Service: 12/05/24 Chief Complaint: peg removal HPI Narrative Chief Complaint: PEG removal Details: ZOE MENDEZ, is a 69 M who presents to endoscopy for PEG removal DISCHARGE 10/31/2024 Patient is a 69-year-old male who presented to [facility] ED on 10/27/2024 with worsening lower extremity edema and mild shortness of breath with exertion. 1. Acute HFrEF exacerbation with hypoxia and recurrent bilateral pleural effusions ? Admit under patient status to PCU. Suspect mild exacerbation with low albumin from malnutrition also contributing. Chest x-ray on admit showed stable bilateral pleural effusions with vascular congestion. Requiring 3 L nasal cannula with exertion to maintain appropriate oxygen saturations. Started on IV Lasix. Heart failure core measures including intake and output, fluid restriction less than 1500 mL, daily weight monitoring, kidney and electrolytes monitoring. Continue home aspirin, hydralazine, nitrate, and Lopressor. 10/28: On exam not significant swelling. IV furosemide changed to oral 40 mg twice daily. 10/29: Patient is reluctant and has questionable adherence to medications and instructions. Patient walked only 4 feet with therapy. 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 10/30: Patient on 2 L of oxygen. Home oxygen qualification ordered. Patient is being discharged home with home health. Prescription given for furosemide. 2. Mild hyperkalemia ? Potassium 5.2 on admit. Potassium has been running between 5.0 and 5.5 on recent labs, suspect this is at baseline. Monitor. 10/28 repeat potassium is 5.0. 3. CKD stage IIIb ? Creatinine 1.86 on admit, at baseline. Monitor daily BMP and urine output while on IV diuretics. 10/28: Creatinine 1.75 on baseline. 4. Severe malnutrition ? Albumin 1.8 on admit, BMI 21. Patient had prolonged recent admission. Has had improving p.o. intake with escalation of diet in setting of dysphagia but remains malnourished, will add dietary supplements to meals while here. 5. Recent dysphagia s/p PEG tube placement ? Had PEG tube placement during September admission. Had modified barium swallow study done on 10/21 that showed only mild to moderate oropharyngeal dysphagia. Is now tolerating a regular solid and nectar thick liquid diet, will continue this. No need for speech therapy consult at this time. 6. Acute on chronic debility, improving ? PT/OT/case management consulted. [facility] but would prefer to go home with home health care on discharge. 7. Anemia ? Anemia 7.6 on admit, stable from recent baseline. 10/29: Hemoglobin is low 7.1. IV iron infusion ordered. 10/30: I think his anemia is due to chronic disease/CKD. Patient was given IV iron but hemoglobin did not improve, today's hemoglobin 7.2. EGD 09/26/2024 An endoscopically removable PEG placement was successfully completed. 69y/o male presents for follow-up post admission - he was discharged [place] 2 weeks ago - solid foods for the past month - not using the PEG - denies any choking or coughing - weight is stable - denies any N/V - weight us up 1-2lbs since home - reports he is not taking any anticoagulants - he is on Lasix - O2 2.5L - PEG has not been used since in [place] - takes all meds PO - bowels are doing OK - denies any HB or indigestion [facility] Medical History Wears partial dentures History of alcohol use Back pain On home oxygen therapy Former smoker Asthma History of edema Hypertension History of echocardiogram Cardiology follow-up encounter Neuropathy Acute HFrEF (heart failure with reduced ejection fraction) Chronic kidney disease Chronic respiratory failure Decubitus ulcer of right buttock, stage 3 Decubitus ulcer of left buttock, 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 Diabetes mellitus, type 2 History of pneumothorax Nonischemic cardiomyopathy Nephrotic syndrome Congestive heart failure PFO (patent foramen ovale) Cardiac arrest Medical non-compliance History of COVID-19 Diabetes Home Medications ?Medication ?Instructions ?Recorded ?Last Taken ?Type flash glucose scanning reader 10/17/24 Unknown Histor y ([place]) furosemide 40 mg tablet 40 mg PO BID #180 tabs 11/07 Unknown Rx isosorbide mononitrate 30 mg 30 mg PO DAILY #90 tabs 0 11/07/24 12/05/24 Rx tablet,extended release 24 hr hydralazine 10 mg tablet 10 mg PO TID 12/02/24 History insulin lispro 100 unit/mL 2 unit subcut Q6H PRN hyper glycemia 12/02/24 Unknown History subcutaneous solution (Humalog U-100 Insulin) metoprolol tartrate 25 mg tablet 25 mg PO BID 12/02/24 12/05/24 History Allergy/AdvReac Type Severity Reaction Status Date / Time No Known Allergies Allergy Verified 12/05/24 06:08 Surgical History S/P percutaneous endoscopic gastrostomy (PEG) tube placement History of thoracentesis H/O chest tube placement Hx of thumb surgery Social History [facility] Smoking Status: Former smoker alcohol intake: never substance use type: does not use ROS Constitutional Constitutional: Denies fatigue, fever(s), poor appetite, weight gain or weight loss Gastrointestinal Gastrointestinal: Denies belching, bloating, change in bowel habits, change in stool character, chewing difficulty, coffee ground emesis, constipation, cramping, diarrhea, dyspepsia, dysphagia, early satiety, excessive flatus, fecal incontinence, heartburn, hematemesis, hematochezia, hemorrhoids, loose stools, melena, nausea, odynophagia, rectal bleeding, tenesmus, vomiting or weight changes Vital Signs Vital Signs Vital Signs: 12/05/24 06:09 12/05/24 06:09 12/05/24 06:31 Temperature 97.9 F 97.9 F Temperature Source Temporal Pulse Rate 51 L 51 L Respiratory Rate 16 16 Respiratory Pattern Normal Blood Pressure 157/62 H 157/62 H Blood Pressure Mean 93 Blood Pressure Source Monitor Blood Pressure Position Semi-Fowlers Blood Pressure Location Right Arm Pulse Ox 100 100 Oxygen Delivery Method Room Air Room Air Weight Weight: 116 lb 13.52 oz Body Mass Index (BMI) 18.3 Physical Exam Const alert, oriented x3, no apparent distress and healthy appearing General Appearance: cooperative GI normal to inspection, nondistended, normoactive bowel sounds, soft to palpation, non-tender and non-distended Percussion: normal to percussion Rectal Exam: deferred Results Lab / Micro Data Labs: Laboratory Results - last 24 hr 12/05/24 06:00: POC Glucose 118 H Assessment & Plan Assessment/Plan (1) Dysphagia: QUALIFIERS: Dysphagia type: esophageal phase Qualified Code(s): R13.19 - Other dysphagia (2) PEG (percutaneous endoscopic gastrostomy) adjustment/replacement/removal: PLAN: Plan Assessment and Plan Assessment and Plan (1) Dysphagia: Status: Acute Qualifiers: Dysphagia type: esophageal phase Qualified Code(s): R13.19 - Other dysphagia Plan 69y/o male presents for follow-up with request for removal of PEG tube. EGD performed 09/26/2024 with PEG placement. He reports discharge from [place] 2 weeks ago and reports he has been eating solid foods for the past month. He denies any choking or coughing with PO intake, weight is stable. He reports taking all medication PO. He is on 2.5L O2 [place]. PEG site is crusted over, site cleaned with soap and water revealing maceration under bumper. Patient was instructed on PEG site care BID and PRN. He was provided drain sponges as well. Review of EGD reports reveals this to be an endoscopically removable PEG and EGD was arranged for removal. He is not on any anticoagulants. ADDENDUM: Review with Dr. Madsen who advised PEG can be removed in the office or via EGD. We will offer this option to patient.
[2024-12-05] MEDS: Silver Nitrate (BKC) 1 EACH (07:43)
--- NOTE | 2024-12-05 07:55 | PCM.POST.ANE ---
Anesthesia: Postop Eval I Current Vital Signs Temperature: 97.1 F Pulse Rate: 49 Blood Pressure: 95/45 Respiratory Rate: 14 Pulse Ox: 100 Oxygen Delivery Method: Room Air Assessment Airway patent: Yes Spontaneous unlabored respirations: Yes Mental status: Asleep nausea: No Vomiting: No Anesthesia Complication: No Fluid Hydration Crystalloid volume administer (ml): 40 Total IV fluid infused: 40 Progress Note Anesthesia document: Postop Eval 1 completed: Yes
--- NOTE | 2024-12-05 08:01 | OP.CCLET_ITS ---
12/05/2024 No Primary Care Physician Re : Upper GI endoscopy procedure for Papito Burns Dear Care Physician This procedure was performed on November. My impressions and recommendations are as follows: Impressions : - Normal esophagus. - Intact gastrostomy with a patent G-tube present characterized by ulceration. - No gross lesions in the first portion of the duodenum. - The PEG was cut externally, grasped, and removed with the scope because it was no longer necessary. - No specimens collected. Recommendations : - Discharge patient to home. - Resume previous diet. - Continue present medications. - Use Protonix (pantoprazole) 40 mg PO BID for 4 weeks. - Cleocin (clindamycin) 600 mg PO TID for 1 week. Waiting two hours to eat or drinkafter PEG tube removal helps reduce leakage. Other after-care tips Make sure to attend all appointments and call your doctor if you have any problems. Avoid heavy meals for 48 hours after the procedure. Eat more frequent lsw meals for 48 hours after the procedure. Clean the area around the opening with warm water and soap each day. The wound may continue to seep for several days to weeks. This is normal and should not be concerning unless the surrounding skin starts to break down. My findings are described in the full procedure note, which is enclosed. If I can be of further assistance, please feel free to contact me at . Sincerely, Praveen Madsen, 12/05/2024 8:01:01 AM This report has been signed electronically.
--- NOTE | 2024-12-05 08:01 | OP.EGD_ITS ---
Patient Name: Papito Burns Procedure Date: 12/05/2024 7:22 AM Date of : 1955 Age: 69 Procedure: Upper GI endoscopy Indications: Remove PEG tube (no longer needed) Providers: Praveen Madsen DO Referring MD: Kasandra Primary Care Physician Medicines: Monitored Anesthesia Care Patient Profile: This is a 69 year old male. Refer to note in patient chart for documentation of history and physical. Patient has symptoms of dysphagia with both liquids and solids. Complications: No immediate complications. Procedure: Pre-Anesthesia Assessment: - Prior to the procedure, a History and Physical was performed, and patient medications and allergies were reviewed. The patient is competent. The risks and benefits of the procedure and the sedation options and risks were discussed with the patient. All questions were answered and informed consent was obtained. Patient identification and proposed procedure were verified by the physician in the pre-procedure area. Mental Status Examination: alert and oriented. Airway Examination: normal oropharyngeal airway and neck mobility. Respiratory Examination: clear to auscultation. CV Examination: normal. Prophylactic Antibiotics: The patient does not require prophylactic antibiotics. Prior Anticoagulants: The patient has taken no anticoagulant or antiplatelet agents except for NSAID medication. ASA Grade Assessment: II - A patient with mild systemic disease. After reviewing the risks and benefits, the patient was deemed in satisfactory condition to undergo the procedure. The anesthesia plan was to use monitored anesthesia care (MAC). Immediately prior to administration of medications, the patient was re-assessed for adequacy to receive sedatives. The heart rate, respiratory rate, oxygen saturations, blood pressure, adequacy of pulmonary ventilation, and response to care were monitored throughout the procedure. The physical status of the patient was re-assessed after the procedure. After obtaining informed consent, the endoscope was passed under direct vision. Throughout the procedure, the patient's blood pressure, pulse, and oxygen saturations were monitored continuously. The gastroscope was introduced through the mouth, and advanced to the second part of duodenum. The upper GI endoscopy was accomplished without difficulty. The patient tolerated the procedure well. Scope In: 7:32:59 AM Scope Out: 7:37:48 AM Total Procedure Duration Time 0 hours 4 minutes 49 seconds Findings: The examined esophagus was normal. There was evidence of an intact gastrostomy with a patent G-tube present in the gastric body. This was characterized by ulceration. The PEG required removal because it was no longer necessary. The PEG was cut externally, grasped, and removed with the scope. Removal was easily accomplished. No gross lesions were noted in the first portion of the duodenum. Impression: - Normal esophagus. - Intact gastrostomy with a patent G-tube present characterized by ulceration. - No gross lesions in the first portion of the duodenum. - The PEG was cut externally, grasped, and removed with the scope because it was no longer necessary. - No specimens collected. Recommendation: - Discharge patient to home. - Resume previous diet. - Continue present medications. - Use Protonix (pantoprazole) 40 mg PO BID for 4 weeks. - Cleocin (clindamycin) 600 mg PO TID for 1 week. Waiting two hours to eat or drinkafter PEG tube removal helps reduce leakage. Other after-care tips Make sure to attend all appointments and call your doctor if you have any problems. Avoid heavy meals for 48 hours after the procedure. Eat more frequent road repairer meals for 48 hours after the procedure. Clean the area around the opening with warm water and soap each day. The wound may continue to seep for several days to weeks. This is normal and should not be concerning unless the surrounding skin starts to break down. Procedure Code(s): --- Professional --- 85172, Esophagogastroduodenoscopy, flexible, transoral; with removal of foreign body(s) CPT copyright 2021 [employer]. All rights reserved. The codes documented in this report are preliminary and upon personalization specialist review may be revised to meet current compliance requirements. Praveen Madsen DO 12/05/2024 8:01:01 AM This report has been signed electronically. Number of Addenda: 0 Note Initiated On: 12/05/2024 7:22 AM
[2024-12-05] MEDS: Pantoprazole Sodium 40 MG in 0.9% Normal Saline (100mL MB+) 100 ML 330 MG IV (08:02)
--- NOTE | 2024-12-05 08:40 | PCM.POSTANE2 ---
Anesthesia Postop Eval I Sum Postop Eval Completion status Anesthesia document: Postop Eval 1 completed: Yes Anesthesia Postop Eval I Summary Anesthesia Postop Eval I Summary: Anesthesia Postop Eval I: Assessment Summary Airway patent Yes 12/05/24 07:56 [email or web address] Spontaneous unlabored Yes 12/05/24 07:56 [email or web address] respirations Mental status Asleep 12/05/24 07:56 [email or web address] nausea No 12/05/24 07:56 [email or web address] Vomiting No 12/05/24 07:56 [email or web address] Anesthesia Postop Eval I: Fluid Summary Crystalloid volume administer 40 12/05/24 07:56 [email or web address] (ml) Colloids volume administered ( ml) Blood Product volume administered (ml) Total IV fluid infused 40 12/05/24 07:56 [email or web address] Anesthesia Postop Eval I: Summary Notes Anesthesia Complication No 12/05/24 07:56 [email or web address] Anesthesia Complication Comment: Post-operative progress note Anesthesia: Postop Eval II Evaluation Mental status: Awake and Calm Pain Level: 0 nausea: No Vomiting: No Complications Anesthesia Complication: No
== END 2024-12-05 08:34 | disposition home or self-care (01) ==
LOC: EN 05:40 → AC 05:41
PROVIDERS: Visit Provider Internal Medicine Gastroenterology
PROC: 0DJ08ZZ Inspection of Upper Intestinal Tract, Via Natural or Artificial Opening Endoscopic (ICD-10-PCS; CPT 43235; principal; 2024-12-05 06:55)
DX: Z43.1 Encounter for attention to gastrostomy (principal); I13.0 Hypertensive heart and chronic kidney disease with heart failure and stage 1 through stage 4 chronic kidney disease, or unspecified chronic kidney disease; I50.21 Acute systolic (congestive) heart failure; E11.22 Type 2 diabetes mellitus with diabetic chronic kidney disease; Z79.4 Long term (current) use of insulin; N18.32 Chronic kidney disease, stage 3b; R09.02 Hypoxemia; E43 Unspecified severe protein-calorie malnutrition; E87.5 Hyperkalemia; Z87.891 Personal history of nicotine dependence; D64.9 Anemia, unspecified; R13.12 Dysphagia, oropharyngeal phase; J45.909 Unspecified asthma, uncomplicated; Z79.899 Other long term (current) drug therapy
CPT/HCPCS: 43247; 82962; A4216; J2405